=== PATIENT | male | born 1955 | race Caucasian/White ===

== ENCOUNTER → 2018-04-08 15:57 | Outpatient (CLI) | payer MEDICARE, SELFPAY ==
[2018-04-08 17:14] LABS: Absolute Lymphocyte Count 1.16 X10^3/ul (0.83-4.51); Absolute Neutrophil Count 5.3 X10^3/uL (2.0-7.7); Basophil# 0.02 X10^3/uL; Basophil% 0.3 % (0-1); Eosinophil# 0.09 X10^3/uL; Eosinophils% 1.2 % (0-5); Hematocrit 41.9 % (40-54); Hemoglobin 13.8 g/dl (13.0-16.5); Lymphocyte # 1.16 X10^3/ul (4.0); Lymphocyte % 15.3 % (19-41); Mean Corp Hgb Conc 32.9 g/gl (32-36); Mean Corpuscular Hgb 30.5 pg (27.0-32.0); Mean Corpuscular Volume 92.5 fL (80-94); Monocyte# 0.95 X10^3/uL; Monocyte% 12.5 % (0-10); Neutrophil # 5.34 X10^3/uL (2.7-7.7); Neutrophil % 70.3 % (47-70); Platelet Count 243 K/mm3 (150-450); RBC Distribution Width CV 13.7 % (11.6-14.6); RBC Distribution Width SD 45.6 fl (35.1-43.9); Red Blood Count 4.53 M/mm3 (4.6-6.2); White Blood Count 7.6 K/mm3 (4.4-11.0)
[2018-04-08 17:27] LABS: POSITIVE COUNT NO; POSITIVE DIFFERENTIAL NO; POSITIVE MORPHOLOGY NO
[2018-04-08 17:56] LABS: ALB/GLOB Ratio 0.9 RATIO (0.9-2.4); AST(SGOT) 25 U/L (15-37); Alanine Aminotransfer ALT/SGPT 35 U/L (16-61); Albumin, Serum 3.6 g/dL (3.2-5.0); Alkaline Phosphatase 93 U/L (45-117); Anion Gap 9 (5-15); BUN 14 mg/dL (7-18); BUN/Creat Ratio 17.5 RATIO (10-20); Calcium,Total 8.4 mg/dL (8.5-10.1); Chloride 105 mmol/L (98-107); EST Glomerular Filtration Rate 105 mL/min (>60); Est Glom Filt Rate - Afr Amer 127 mL/min (>60); Globulin 3.9 g/dL (2.2-4.2); Glucose 104 mg/dL (74-106); Potassium 3.6 mmol/L (3.5-5.1); Protein, Total 7.5 g/dL (6.4-8.2); Sodium Level 142 mmol/L (136-145); T4 Free Direct 1.09 ng/dL (0.76-1.46); Thyroid Stim Hormone (TSH) 1.53 uIU/mL (0.358-3.74)
== END ==
PROVIDERS: Family Provider Internal Medicine; PCP Internal Medicine; Visit Provider Family Medicine
DX: R53.83 Other fatigue (principal); R19.7 Diarrhea, unspecified
CPT/HCPCS: 36415; 80053; 84439; 84443; 85025

== ENCOUNTER → 2018-10-09 09:28 | Outpatient (CLI) | payer OTHER, SELFPAY ==
[2018-10-11 03:07] LABS: QNTFERON TB Mitogen Value 8.46 IU/mL (.); QNTFERON TB Nil Value 0.03 IU/mL (.); QNTFERON TB1+ Ag Value 0.04 IU/mL (.); QNTFERON TB2+ Ag Value 0.03 IU/mL (.)
[2018-10-13 11:24] LABS: QNTIFERON TB Positive Criteria Negative (Negative)
--- OUTSIDE RECORDS SUMMARY | 2018-11-25 03:03 | XMS RPT_ITS ---
:1955 External Reference #:[id number] Author Organization OHIP Care Team Providers Name Role Phone BRIAN PATEL Attending Unavailable BRIAN PATEL Referring Unavailable GANTAARLEEN Attending Unavailable GANTA, ARLEEN Referring Unavailable GANTAERIRA Referring Unavailable MercedesElham Attending Unavailable Mercedes, Elham Referring Unavailable Ganta, Arleen Primary Care Unavailable Brian Patel Attending Unavailable Brian Patel Referring Unavailable Ganta, Arleen Primary Care Unavailable PROBLEMS PROBLEMS DATE TYPE CONDITION / CODE ATTENDING STATUS SOURCE 06/25/2018 Active Abnormal weight gain NA Active [place] / R63.5(ICD-10) Clinic Main [place] [facility] 06/25/2018 Active Noninfective NA Active [place] gastroenteritis and [facility] Main colitis, unspecified [place] / K52.9(ICD-10) Repository 04/08/2018 Active Diarrhea, unspecified NA Active [place] / R19.7(ICD-10) Clinic Main [place] [facility] 04/08/2018 Active Other fatigue / NA Active [place] R53.83(ICD-10) Clinic Main [place] [facility] 04/08/2018 Active Unknown / BRIAN PATEL Active [place] UNK(Unknown) A Clinic Main [place] [facility] PROCEDURES PROCEDURES No Procedure Records FoundRESULTS RESULTS PROGRESS Observed: 11/19/2018 Status: COMPLETED Source: [place] 9:50 AM [facility] REPOSITORY HNO ID: [id number] Author: Jess Craft Service: (none) Author Type: Glove Cutter Type: Progress Notes Filed: 11/19/2018 9:50 AM Note Text: [facility] CONSULTANT QUICKNOTE Provider Action/FYI: Patient identified by name and . Patient returned call and scheduled appointment. Appointment scheduled for 02/2019. Jess Craft CMA OBSOLETE Observed: 11/17/2018 Status: COMPLETED Source: [place] 12:00 AM [facility] REPOSITORY Refill (FAMPWS) ZIYAD BAER ([id number]) 1955 M Date Time Provider Department 11/17/18 [facility] During your visit today, we recorded the following information about you: Franca Hicks Ma 11/17/2018 10:54 AM Signed [facility] Tl Coleman APRN.RJ 11/17/2018 11:05 AM Signed The following approved medication requests have been transmitted electronically. Signed Prescriptions Disp Refills carvedilol (COREG) 25 mg tablet 180 tablet 3 Sig: Take 1 tablet by mouth twice daily with meals. [place]: No Authorizing Provider: TL COLEMAN (MANUFACTURER) Tl Coleman APRN.CNP Allergies As of Date: 11/17/2018 Noted Allergy Reaction PENICILLINS 05/31/2015 9 - Itching POISON ALL 05/31/2015 9 - Itching Date Reviewed: 06/25/2018 Reviewed by: Bhavya Holbrook LPN - Fully Assessed Reason for Visit: Refill Request [94] Visit Diagnosis:Essential hypertension [I10] Order(s):carvedilol (COREG) 25 mg tabletTake 1 tablet by mouth twice daily with meals.Disp: 180 tabletRfl: 3 Prescriptions as of 11/17/2018 Sig: CARVEDILOL 25 MG TABLET Take 1 tablet by mouth twice * COLESTIPOL 1 GRAM TABLET Take 1 tablet by mouth once d* VALSARTAN 320 MG TABLET Take 1 tablet by mouth once d* AMLODIPINE 10 MG TABLET Take 1 tablet by mouth once d* ESCITALOPRAM 20 MG TABLET Take 1 tablet by mouth once d* AMLODIPINE 10 MG TABLET Take 1 tablet by mouth once d* CITALOPRAM 20 MG TABLET Take 1 tablet by mouth once d* Patient not taking: Reported on 08/05/2018 VITAMINS A,C,D-[id number]-[id number] 7* Take 1 tablet by mouth twice * CHOLECALCIFEROL (VITAMIN D3) * Take 1 capsule by mouth once * APREMILAST 30 MG TABLET Take 1 tablet by mouth twice * LISINOPRIL 40 MG TABLET Take 1 tablet by mouth once d* Patient not taking: Reported on 08/05/2018 SILDENAFIL 100 MG TABLET One tablet one hour prior to * NAPROXEN 500 MG TABLET TAKE 1 TABLET BY MOUTH TWICE * Patient not taking: Reported on 04/08/2018 ASPIRIN 81 MG TABLET,DELAYED * Take 1 tablet by mouth once d* CHOLECALCIFEROL (VITAMIN D3) * Take 1 capsule by mouth once * CLOBETASOL 0.05 % TOPICAL CRE* Apply at sparingly to elbows * Problem List As Of Date 11/17/2018 Noted Resolved Hypertension [I10] INVALID FOR* More... Anxiety and depression [F41.9, F32.9] INVALID FOR* More... Sleep apnea [G47.30] INVALID FOR* More... Morbid obesity (HCC) [E66.01] INVALID FOR* More... Alcohol use disorder, mild, abuse [F10.10] INVALID FOR* More... Arthritis of ankle, right [M19.071] INVALID FOR* Prescriptions ordered this encounter Disp Refills Start End CARVEDILOL 25 MG TABLET 180 * 3 11/17/2018 Route: ORAL Sig: Take 1 tablet by mouth twice daily with meals. Medications Discontinued During This Encounter carvedilol (COREG) 25 mg tablet 180 * 3 11/11/2018 11/17/2018 Route: ORAL Sig: Take 1 tablet by mouth twice daily with meals. Disc: Reason for discontinue is not on file. Encounter Status:Closed by TL COLEMAN CNP on 11/17/18 PROGRESS Observed: 11/14/2018 Status: COMPLETED Source: [place] 9:38 AM [facility] [place] REPOSITORY O ID: [id number] Author: Jess Craft Service: (none) Author Type: Glove Cutter Type: Progress Notes Filed: 11/19/2018 9:50 AM Note Text: [facility]SULTANT QUICKNOTE Provider Action/FYI: Patient identified by name and . 1st attempt - Left detailed message for patient to return call #[phone] Jess Craft CMA PROGRESS Observed: 11/13/2018 Status: COMPLETED Source: [place] 9:10 AM [facility] REPOSITORY HNO ID: [id number] Author: Jess Craft Service: (none) Author Type: Glove Cutter Type: Progress Notes Filed: 11/19/2018 9:50 AM Note Text: PHMA TEAMLET DOCUMENTATION Provider Action/FYI: PSR Action/FYI: R/s follow up appointment Teamlet has identified patient by name and date of . Team: Tl Mercado ? Last Office Visit:09/20/2018 ? Next Office Visit: Visit date not found ? Last BP/Labs: Blood Pressure: Last 3 Encounter BP Readings: Date: BP: 07/14/2018 157/94[BP Star average[ 06/25/2018 142/84 04/08/2018 164/100 Lipids: Cholesterol, Total (mg/dL) Date Value 12/08/2016 141 HDL Cholesterol (mg/dL) Date Value 12/08/2016 45 LDL Cholesterol (mg/dL) Date Value 12/08/2016 71 Triglyceride (mg/dL) Date Value 12/08/2016 125 HGB A1C: No results found for: HBA1C TSH: TSH (uU/mL) Date Value 06/25/2018 1.730 ) Care Gap: HTN Plan: ? Confirm PCP / Status - active ? Type of appointment needed: Follow-up HTN next available with Provider pcp or multimedia instructional designer ? Consultation Appointments: n/a Labs, HM and Immunization: Health Maintenance Due: BP CONTROLLED (<130/80) due on 1975 DTAP,TDAP,TD(1 - Tdap) due on 1976 ONE PNEUMOVAX PRIOR TO AGE 65 due on 1976 COLORECTAL CANCER SCREENING,SEE MODIFIER due on 2007 PROSTATE CANCER SCREENING DISCUSSION due on 2012 INFLUENZA(1) due on 06/28/2018 Jess Craft CMA CNPTOUTREACH Observed: 11/13/2018 Status: COMPLETED Source: [place] 12:00 AM [facility] REPOSITORY Patient Outreach (INTMWS) KEYURZIYAD ([id number]) 1955 M Date Time Provider Department 11/13/18 JESS CRAFT ([facility]) INTMWS During your visit today, we recorded the following information about you: Jess Craft CMA 11/19/2018 9:50 AM Signed PHMA TEAMLET DOCUMENTATION Provider Action/FYI: PSR Action/FYI: R/s follow up appointment Teamlet has identified patient by name and date of . Team: Tl Mercado ? Last Office Visit:09/20/2018 ? Next Office Visit: Visit date not found ? Last BP/Labs: Blood Pressure: Last 3 Encounter BP Readings: Date: BP: 07/14/2018 157/94[BP Star average[ 06/25/2018 142/84 04/08/2018 164/100 Lipids: Cholesterol, Total (mg/dL) Date Value 12/08/2016 141 HDL Cholesterol (mg/dL) Date Value 12/08/2016 45 LDL Cholesterol (mg/dL) Date Value 12/08/2016 71 Triglyceride (mg/dL) Date Value 12/08/2016 125 HGB A1C: No results found for: HBA1C TSH: TSH (uU/mL) Date Value 06/25/2018 1.730 ) Care Gap: HTN Plan: ? Confirm PCP / Status - active ? Type of appointment needed: Follow-up HTN next available with Provider pcp or multimedia instructional designer ? Consultation Appointments: n/a Labs, HM and Immunization: Health Maintenance Due: BP CONTROLLED (<130/80) due on 1975 DTAP,TDAP,TD(1 - Tdap) due on 1976 ONE PNEUMOVAX PRIOR TO AGE 65 due on 1976 COLORECTAL CANCER SCREENING,SEE MODIFIER due on 2007 PROSTATE CANCER SCREENING DISCUSSION due on 2012 INFLUENZA(1) due on 06/28/2018 AFSHIN Chau CMA 11/19/2018 9:50 AM Signed [facility] CONTAM[facility] CONSULTANT WADE Provider Action/FYI: Patient identified by name and . 1st attempt - Left detailed message for patient to return call #[phone] AFSHIN Chau CMA 11/19/2018 9:50 AM Signed [facility] CONSULTANT WADE Provider Action/FYI: Patient identified by name and . Patient returned call and scheduled appointment. Appointment scheduled for 02/2019. Jess Craft CMA Allergies As of Date: 11/13/2018 Noted Allergy Reaction PENICILLINS 05/31/2015 9 - Itching POISON ALL 05/31/2015 9 - Itching Date Reviewed: 06/25/2018 Reviewed by: Bhavya Holbrook LPN - Fully Assessed Reason for Visit: PHMA/Care Gap Outreach [[id number]] Prescriptions as of 11/13/2018 Sig: X CARVEDILOL 25 MG TABLET Take 1 tablet by mouth twice * COLESTIPOL 1 GRAM TABLET Take 1 tablet by mouth once d* VALSARTAN 320 MG TABLET Take 1 tablet by mouth once d* AMLODIPINE 10 MG TABLET Take 1 tablet by mouth once d* ESCITALOPRAM 20 MG TABLET Take 1 tablet by mouth once d* AMLODIPINE 10 MG TABLET Take 1 tablet by mouth once d* CITALOPRAM 20 MG TABLET Take 1 tablet by mouth once d* Patient not taking: Reported on 08/05/2018 VITAMINS A,C,O-YSRH-EGRYJE 7* Take 1 tablet by mouth twice * CHOLECALCIFEROL (VITAMIN D3) * Take 1 capsule by mouth once * APREMILAST 30 MG TABLET Take 1 tablet by mouth twice * LISINOPRIL 40 MG TABLET Take 1 tablet by mouth once d* Patient not taking: Reported on 08/05/2018 SILDENAFIL 100 MG TABLET One tablet one hour prior to * NAPROXEN 500 MG TABLET TAKE 1 TABLET BY MOUTH TWICE * Patient not taking: Reported on 04/08/2018 ASPIRIN 81 MG TABLET,DELAYED * Take 1 tablet by mouth once d* CHOLECALCIFEROL (VITAMIN D3) * Take 1 capsule by mouth once * CLOBETASOL 0.05 % TOPICAL CRE* Apply at sparingly to elbows * Problem List As Of Date 11/13/2018 Noted Resolved Hypertension [I10] INVALID FOR* More... Anxiety and depression [F41.9, F32.9] INVALID FOR* More... Sleep apnea [G47.30] INVALID FOR* More... Morbid obesity (HCC) [E66.01] INVALID FOR* More... Alcohol use disorder, mild, abuse [F10.10] INVALID FOR* More... Arthritis of ankle, right [M19.071] INVALID FOR* Encounter Status:Closed by JESS CRAFT CMA on 11/19/18 OBSOLETE Observed: 11/10/2018 Status: COMPLETED Source: [place] 12:00 AM [facility] REPOSITORY Refill (FAMPWS) ZIYAD BAER ([id number]) 1955 M Date Time Provider Department 11/10/18 [facility] During your visit today, we recorded the following information about you: Franca Hicks Ma 11/10/2018 3:24 PM Signed Patient has been identified by name and date of : Yes Pharmacy phones for refill(s): Pending Prescriptions Disp Refills CARVEDILOL 25 MG TABLET 180 tablet 3 Sig: Take 1 tablet by mouth twice daily with meals. [place]: No Date of last office visit in primary care: 06/25/18 Last 2 Encounter Wt Readings: Date: Wt: 06/25/2018 142.9 kg (315 lb) 04/08/2018 142.9 kg (315 lb) Previous labs/tests for medication: Blood Pressure: BUN (mg/dL) Date Value 06/25/2018 13 Sodium (mmol/L) Date Value 06/25/2018 143 Last 1 Encounter BP Readings: Date: BP: 07/14/2018 157/94[BP Star average[ Please advise. Thank you. Franca Coleman APRN.MANUFACTURER 11/11/2018 10:54 AM Signed The following approved medication requests have been transmitted electronically. Signed Prescriptions Disp Refills carvedilol (COREG) 25 mg tablet 180 tablet 3 Sig: Take 1 tablet by mouth twice daily with meals. [place]: No Authorizing Provider: TL COLEMAN (RJ) Tl Coleman APRN.CNP Allergies As of Date: 11/10/2018 Noted Allergy Reaction PENICILLINS 05/31/2015 9 - Itching POISON ALL 05/31/2015 9 - Itching Date Reviewed: 06/25/2018 Reviewed by: Bhavya Holbrook LPN - Fully Assessed Reason for Visit: Refill Request [94] Visit Diagnosis:Essential hypertension [I10] Order(s):carvedilol (COREG) 25 mg tabletTake 1 tablet by mouth twice daily with meals.Disp: 180 tabletRfl: 3 Prescriptions as of 11/10/2018 Sig: CARVEDILOL 25 MG TABLET Take 1 tablet by mouth twice * COLESTIPOL 1 GRAM TABLET Take 1 tablet by mouth once d* VALSARTAN 320 MG TABLET Take 1 tablet by mouth once d* AMLODIPINE 10 MG TABLET Take 1 tablet by mouth once d* ESCITALOPRAM 20 MG TABLET Take 1 tablet by mouth once d* AMLODIPINE 10 MG TABLET Take 1 tablet by mouth once d* CITALOPRAM 20 MG TABLET Take 1 tablet by mouth once d* Patient not taking: Reported on 08/05/2018 VITAMINS A,C,N-SGUA-OGYQHT 7* Take 1 tablet by mouth twice * CHOLECALCIFEROL (VITAMIN D3) * Take 1 capsule by mouth once * APREMILAST 30 MG TABLET Take 1 tablet by mouth twice * LISINOPRIL 40 MG TABLET Take 1 tablet by mouth once d* Patient not taking: Reported on 08/05/2018 SILDENAFIL 100 MG TABLET One tablet one hour prior to * NAPROXEN 500 MG TABLET TAKE 1 TABLET BY MOUTH TWICE * Patient not taking: Reported on 04/08/2018 ASPIRIN 81 MG TABLET,DELAYED * Take 1 tablet by mouth once d* CHOLECALCIFEROL (VITAMIN D3) * Take 1 capsule by mouth once * CLOBETASOL 0.05 % TOPICAL CRE* Apply at sparingly to elbows * Problem List As Of Date 11/10/2018 Noted Resolved Hypertension [I10] INVALID FOR* More... Anxiety and depression [F41.9, F32.9] INVALID FOR* More... Sleep apnea [G47.30] INVALID FOR* More... Morbid obesity (HCC) [E66.01] INVALID FOR* More... Alcohol use disorder, mild, abuse [F10.10] INVALID FOR* More... Arthritis of ankle, right [M19.071] INVALID FOR* Prescriptions ordered this encounter Disp Refills Start End CARVEDILOL 25 MG TABLET 180 * 3 11/11/2018 Route: ORAL Sig: Take 1 tablet by mouth twice daily with meals. Medications Discontinued During This Encounter carvedilol (COREG) 25 mg tablet 180 * 0 08/06/2018 11/11/2018 Route: ORAL Sig: Take 1 tablet by mouth twice daily with meals. Disc: Reason for discontinue is not on file. Encounter Status:Closed by TL COLEMAN CNP on 11/11/18 PROGRESS Observed: 11/04/2018 Status: COMPLETED Source: [place] 10:01 AM [facility] REPOSITORY HNO ID: [id number] Author: Jess Craft Service: (none) Author Type: Glove Cutter Type: Progress Notes Filed: 11/04/2018 10:01 AM Note Text: I spoke with Bill and he agreed to make an appointment, but needed it to be on a Saturday. Appointment nicole. This Sat. He states he will call back if he can't make it due to his schedule he wasn't sure about. PROGRESS Observed: 10/31/2018 Status: COMPLETED Source: [place] 10:08 AM [facility] REPOSITORY HNO ID: [id number] Author: Jess Craft Service: (none) Author Type: Glove Cutter Type: Progress Notes Filed: 11/04/2018 10:01 AM Note Text: Left message for patient to return call #[phone] PROGRESS Observed: 10/30/2018 Status: COMPLETED Source: [place] 10:06 AM [facility] REPOSITORY HNO ID: [id number] Author: Jess Craft Service: (none) Author Type: Glove Cutter Type: Progress Notes Filed: 11/04/2018 10:01 AM Note Text: PHMA CARE GAP REGISTRY DOCUMENTATION (OUTSIDE TEAMLET) Provider Action/FYI: PSR Action/FYI: R/s follow up appointment Health Maintenance Due: BP CONTROLLED (<130/80) due on 1975 DTAP,TDAP,TD(1 - Tdap) due on 1976 ONE PNEUMOVAX PRIOR TO AGE 65 due on 1976 COLORECTAL CANCER SCREENING,SEE MODIFIER due on 2007 PROSTATE CANCER SCREENING DISCUSSION due on 2012 INFLUENZA(1) due on 06/28/2018 Patient identified by name and date of . Last BP/Labs: Blood Pressure: Last 3 Encounter BP Readings: Date: BP: 07/14/2018 157/94[BP Star average[ 06/25/2018 142/84 04/08/2018 164/100 Lipids: Cholesterol, Total (mg/dL) Date Value 12/08/2016 141 HDL Cholesterol (mg/dL) Date Value 12/08/2016 45 LDL Cholesterol (mg/dL) Date Value 12/08/2016 71 Triglyceride (mg/dL) Date Value 12/08/2016 125 HGB A1C: No results found for: HBA1C TSH: TSH (uU/mL) Date Value 06/25/2018 1.730 ) ? Patient has the following care gap registry disease diagnosis:HTN ? Patient has the following open care gaps: Health Maintenance Due: BP CONTROLLED (<130/80) due on 1975 DTAP,TDAP,TD(1 - Tdap) due on 1976 ONE PNEUMOVAX PRIOR TO AGE 65 due on 1976 COLORECTAL CANCER SCREENING,SEE MODIFIER due on 2007 PROSTATE CANCER SCREENING DISCUSSION due on 2012 INFLUENZA(1) due on 06/28/2018 ? Last office visit: 06/25/2018 ? Future office visit:Follow-up r/s in next available with Provider pcp or multimedia instructional designer AFSHIN Chau Observed: 10/30/2018 Status: COMPLETED Source: [place] 12:00 AM [facility] REPOSITORY Patient Outreach (INTMWS) ZIYAD BAER ([id number]) 1955 M Date Time Provider Department 10/30/18 JESS CRAFT ([facility]) INTMWS During your visit today, we recorded the following information about you: Jess Craft CMA 11/04/2018 10:01 AM Signed [facility] CARE GAP REGISTRY DOCUMENTATION (OUTSIDE TEAMLET) Provider Action/FYI: PSR Action/FYI: R/s follow up appointment Health Maintenance Due: BP CONTROLLED (<130/80) due on 1975 DTAP,TDAP,TD(1 - Tdap) due on 1976 ONE PNEUMOVAX PRIOR TO AGE 65 due on 1976 COLORECTAL CANCER SCREENING,SEE MODIFIER due on 2007 PROSTATE CANCER SCREENING DISCUSSION due on 2012 INFLUENZA(1) due on 06/28/2018 Patient identified by name and date of . Last BP/Labs: Blood Pressure: Last 3 Encounter BP Readings: Date: BP: 07/14/2018 157/94[BP Star average[ 06/25/2018 142/84 04/08/2018 164/100 Lipids: Cholesterol, Total (mg/dL) Date Value 12/08/2016 141 HDL Cholesterol (mg/dL) Date Value 12/08/2016 45 LDL Cholesterol (mg/dL) Date Value 12/08/2016 71 Triglyceride (mg/dL) Date Value 12/08/2016 125 HGB A1C: No results found for: HBA1C TSH: TSH (uU/mL) Date Value 06/25/2018 1.730 ) ? Patient has the following care gap registry disease diagnosis:HTN ? Patient has the following open care gaps: Health Maintenance Due: BP CONTROLLED (<130/80) due on 1975 DTAP,TDAP,TD(1 - Tdap) due on 1976 ONE PNEUMOVAX PRIOR TO AGE 67 due on 1976 COLORECTAL CANCER SCREENING,SEE MODIFIER due on 2007 PROSTATE CANCER SCREENING DISCUSSION due on 2012 INFLUENZA(1) due on 06/28/2018 ? Last office visit: 06/25/2018 ? Future office visit:Follow-up r/s in next available with Provider pcp or multimedia instructional designer AFSHIN Chau CMA 11/04/2018 10:01 AM Signed Left message for patient to return call #[phone] Jess CraftAFSHIN 11/04/2018 10:01 AM Signed I spoke with Bill and he agreed to make an appointment, but needed it to be on a Saturday. Appointment nicole. This Sat. He states he will call back if he can't make it due to his schedule he wasn't sure about. Allergies As of Date: 10/30/2018 Noted Allergy Reaction PENICILLINS 05/31/2015 9 - Itching POISON ALL 05/31/2015 9 - Itching Date Reviewed: 06/25/2018 Reviewed by: Bhavya Holbrook LPN - Fully Assessed Reason for Visit: PHMA/Care Gap Outreach [[id number]] Prescriptions as of 10/30/2018 Sig: COLESTIPOL 1 GRAM TABLET Take 1 tablet by mouth once d* CARVEDILOL 25 MG TABLET Take 1 tablet by mouth twice * VALSARTAN 320 MG TABLET Take 1 tablet by mouth once d* AMLODIPINE 10 MG TABLET Take 1 tablet by mouth once d* ESCITALOPRAM 20 MG TABLET Take 1 tablet by mouth once d* AMLODIPINE 10 MG TABLET Take 1 tablet by mouth once d* CITALOPRAM 20 MG TABLET Take 1 tablet by mouth once d* Patient not taking: Reported on 08/05/2018 VITAMINS A,C,T-EHHN-HFLAHZ 7* Take 1 tablet by mouth twice * CHOLECALCIFEROL (VITAMIN D3) * Take 1 capsule by mouth once * APREMILAST 30 MG TABLET Take 1 tablet by mouth twice * LISINOPRIL 40 MG TABLET Take 1 tablet by mouth once d* Patient not taking: Reported on 08/05/2018 SILDENAFIL 100 MG TABLET One tablet one hour prior to * NAPROXEN 500 MG TABLET TAKE 1 TABLET BY MOUTH TWICE * Patient not taking: Reported on 04/08/2018 ASPIRIN 81 MG TABLET,DELAYED * Take 1 tablet by mouth once d* CHOLECALCIFEROL (VITAMIN D3) * Take 1 capsule by mouth once * CLOBETASOL 0.05 % TOPICAL CRE* Apply at sparingly to elbows * Problem List As Of Date 10/30/2018 Noted Resolved Hypertension [I10] INVALID FOR* More... Anxiety and depression [F41.9, F32.9] INVALID FOR* More... Sleep apnea [G47.30] INVALID FOR* More... Morbid obesity (HCC) [E66.01] INVALID FOR* More... Alcohol use disorder, mild, abuse [F10.10] INVALID FOR* More... Arthritis of ankle, right [M19.071] INVALID FOR* Encounter Status:Closed by JESS CRAFT CMA on 11/04/18 QUANTIFERON TB-GOLD+ Collected: 10/09/2018 Status: F Source: [place] 9:34 AM [facility] REPOSITORY TYPE CODE TESTS RESULT OUT OF RANGE REFERENCE UNITS LAB L3400.8025 . Normal QFT TB Comment GOLD Result Comment: The QuantiFERON-TB Gold Plus result is determined by subtracting the Nil value from either TB antigen (Ag) tube. The mitogen tube serves as a control for the test. LAB L3400.8035 . IU/mL Normal QFT TB1+ AG 0.04 [facility] LAB L3400.8045 . IU/mL Normal QFT TB2+ AG 0.03 [facility] LAB L3400.8055 . IU/mL Normal QFT NIL VALUE 0.03 LAB L3400.8065 . IU/mL Normal QFT MITOGEN 8.46 [facility] LAB L3400.8075 Negative Normal QFT TB POS Negative CRIT Result Comment: The specimen received for QuantiFERON testing was incubated by the ordering institution. Specific procedures outlined in our Directory of Services and in the package insert for the QuantiFERON Gold (In Tube) test must be followed to enable for proper stimulation of cells for the production of interferon gamma. Performed at: [facility] [address] [id number] Wearing Apparel Assembler: Ham Hitchcock PhD, Phone: [phone] Performed By: #### L3400.8000 #### [facility] (refer to report for specific site) refer to report for address and phone number CNPPatrizia Observed: 08/05/2018 Status: COMPLETED Source: [place] 12:00 AM [facility] REPOSITORY Telephone (INTMWS) KEYURZIYAD ([id number]) 1955 M Date Time Provider Department 08/05/18 ARLEEN MENDIETA During your visit today, we recorded the following information about you: Alysa Nicholson LPN 08/05/2018 9:13 AM Signed Patient calling to see if he should be taking carvedilol 25 mg twice a day. Will need a refill if he is to continue. Please advise [phone]. Alysa MENDIETA MD 08/05/2018 4:24 PM Signed Yes twice a day, I sent refill to [facility] pharmacy, does he was [facility]? Patient's request for medication is as follows: Signed Prescriptions Disp Refills carvedilol (COREG) 25 mg tablet 180 tablet 3 Sig: Take 1 tablet by mouth twice daily with meals. [place]: No Authorizing Provider: ARLEEN MENDIETA Prescription(s) as above. Please process accordingly. ARLEEN MENDIETA MD [facility] ARSENIO 08/05/2018 5:02 PM Signed Phoned patient and went over notes from Dr Mendieta with understanding. Asking for 90 day [facility]. Pending rx to mail away pharmacy. Tl Coleman APRN.RJ 08/05/2018 5:08 PM Signed The following approved medication requests have been transmitted electronically. Signed Prescriptions Disp Refills carvedilol (COREG) 25 mg tablet 180 tablet 3 Sig: Take 1 tablet by mouth twice daily with meals. [place]: No Authorizing Provider: TL COLEMAN (RJ) Tl Coleman APRN.RJ Driscoll 08/06/2018 4:51 PM Signed Patient is calling back - He needs the 90 days with refills sent to [facility] in [place]. He is NOT using [facility]. Please send to [facility] in [place] immediately - he stated he is going to [facility] in one hour. Courtney Driscoll 08/06/2018 4:52 PM Signed Addended by: COURTNEY GIL on: 08/06/2018 04:52 PM Modules accepted: Orders Tl Coleman APRN.CNP 08/06/2018 5:39 PM Signed Previous phone encounter from patient requested prescriptions be sent to [facility]. Sent back to [facility]. The following approved medication requests have been transmitted electronically. Signed Prescriptions Disp Refills carvedilol (COREG) 25 mg tablet 180 tablet 0 Sig: Take 1 tablet by mouth twice daily with meals. [place]: No Authorizing Provider: TL COLEMAN (RJ) ADA Nuno APRN.CNP 08/06/2018 5:39 PM Signed Addended by: TL COLEMAN CNP on: 08/06/2018 05:39 PM Modules accepted: Orders Allergies As of Date: 08/05/2018 Noted Allergy Reaction PENICILLINS 05/31/2015 9 - Itching POISON ALL 05/31/2015 9 - Itching Date Reviewed: 06/25/2018 Reviewed by: Bhavya Holbrook LPN - Fully Assessed Reason for Visit: Medication Question [6808] Visit Diagnosis:Essential hypertension [I10] Order(s):carvedilol (COREG) 25 mg tabletTake 1 tablet by mouth twice daily with meals.Disp: 180 tabletRfl: 0 Prescriptions as of 08/05/2018 Sig: CARVEDILOL 25 MG TABLET Take 1 tablet by mouth twice * COLESTIPOL 1 GRAM TABLET Take 1 tablet by mouth once d* VALSARTAN 320 MG TABLET Take 1 tablet by mouth once d* AMLODIPINE 10 MG TABLET Take 1 tablet by mouth once d* ESCITALOPRAM 20 MG TABLET Take 1 tablet by mouth once d* AMLODIPINE 10 MG TABLET Take 1 tablet by mouth once d* CITALOPRAM 20 MG TABLET Take 1 tablet by mouth once d* Patient not taking: Reported on 08/05/2018 VITAMINS A,C,V-PCVQ-SELRFL 7* Take 1 tablet by mouth twice * CHOLECALCIFEROL (VITAMIN D3) * Take 1 capsule by mouth once * APREMILAST 30 MG TABLET Take 1 tablet by mouth twice * LISINOPRIL 40 MG TABLET Take 1 tablet by mouth once d* Patient not taking: Reported on 08/05/2018 SILDENAFIL 100 MG TABLET One tablet one hour prior to * NAPROXEN 500 MG TABLET TAKE 1 TABLET BY MOUTH TWICE * Patient not taking: Reported on 04/08/2018 ASPIRIN 81 MG TABLET,DELAYED * Take 1 tablet by mouth once d* CHOLECALCIFEROL (VITAMIN D3) * Take 1 capsule by mouth once * CLOBETASOL 0.05 % TOPICAL CRE* Apply at sparingly to elbows * Problem List As Of Date 08/05/2018 Noted Resolved Hypertension [I10] INVALID FOR* More... Anxiety and depression [F41.9, F32.9] INVALID FOR* More... Sleep apnea [G47.30] INVALID FOR* More... Morbid obesity (HCC) [E66.01] INVALID FOR* More... Alcohol use disorder, mild, abuse [F10.10] INVALID FOR* More... Arthritis of ankle, right [M19.071] INVALID FOR* Prescriptions ordered this encounter Disp Refills Start End CARVEDILOL 25 MG TABLET 180 * 3 08/05/2018 08/05/2018 Route: ORAL Sig: Take 1 tablet by mouth twice daily with meals. CARVEDILOL 25 MG TABLET 180 * 3 08/05/2018 08/06/2018 Class: [facility] Route: ORAL Sig: Take 1 tablet by mouth twice daily with meals. CARVEDILOL 25 MG TABLET 180 * 0 08/06/2018 Route: ORAL Sig: Take 1 tablet by mouth twice daily with meals. Medications Discontinued During This Encounter carvedilol (COREG) 25 mg tablet 28 t* 0 06/25/2018 08/05/2018 Route: ORAL Sig: Take 1 tablet by mouth twice daily with meals. Disc: Reason for discontinue is not on file. carvedilol (COREG) 25 mg tablet 180 * 3 08/05/2018 08/05/2018 Route: ORAL Sig: Take 1 tablet by mouth twice daily with meals. Disc: Reason for discontinue is not on file. carvedilol (COREG) 25 mg tablet 180 * 3 08/05/2018 08/06/2018 Class: [facility] Route: ORAL Sig: Take 1 tablet by mouth twice daily with meals. Disc: Reason for discontinue is not on file. Encounter Status:Closed by TL COLEMAN CNP on 08/05/18 PROGRESS Observed: 07/14/2018 Status: COMPLETED Source: [place] 3:48 PM [facility] REPOSITORY HNO ID: [id number] Author: Desiree Parks LPN Service: (none) Author Type: (none) Type: Progress Notes Filed: 07/14/2018 4:12 PM Note Text: Manual Readin/80 Pulse: 58 (irregular) BP Star average: 157/94 P: 56 Repeat BP Check: 181/95 P55 #1 153/99 P54 #3 160/90 P57 #4 155/93 P57 #5 158/92 P56 #6 Reason for blood pressure check - Last BP elevated Patient is: Taking medication as prescribed Yes Took medication today Yes If no, date medication last taken N/A Experiencing side effects No BP was elevated at last appt 06/25/18. Coreg had recently been changed prior to that appt. No BP medication changes made at that appt. Taking all medications as prescribed; does state that he missed yesterday morning medication doses. Also made mention about whether he is taking Labetalol but this is not on his current medication list. Denies any chest pain, shortness of breath, dizziness, or headaches. Daily caffeine use. Past personal history of tobacco use; no current exposure. Alert and oriented. Pt has been identified by name and birthdate: Yes Allergies reviewed: Yes Latex allergy: no. Medication - prescribed and OTC reviewed and updated: Yes Do you need any prescription refills prior to your next visit: No Health Maintenance: Reviewed and not up to date and provider notified Patient advised that he would be contacted after review by PCP. Desiree Parks LPN CNNURSE Observed: 07/14/2018 Status: COMPLETED Source: [place] 3:45 PM [facility] REPOSITORY Nurse Visit (FAMPWS) ZIYAD BAER ([id number]) 1955 M Date Time Provider Department 07/14/18 3:45 PM [place] NURSE [facility]AMPWS During your visit today, we recorded the following information about you: Pulse Blood pressure 56/minute 157/94 Deisree Parks LPN 07/14/2018 4:12 PM Signed Manual Readin/80 Pulse: 58 (irregular) BP Star average: 157/94 P: 56 Repeat BP Check: 181/95 P55 #1 153/99 P54 #3 160/90 P57 #4 155/93 P57 #5 158/92 P56 #6 Reason for blood pressure check - Last BP elevated Patient is: Taking medication as prescribed Yes Took medication today Yes If no, date medication last taken N/A Experiencing side effects No BP was elevated at last appt 06/25/18. Coreg had recently been changed prior to that appt. No BP medication changes made at that appt. Taking all medications as prescribed; does state that he missed yesterday morning medication doses. Also made mention about whether he is taking Labetalol but this is not on his current medication list. Denies any chest pain, shortness of breath, dizziness, or headaches. Daily caffeine use. Past personal history of tobacco use; no current exposure. Alert and oriented. Pt has been identified by name and birthdate: Yes Allergies reviewed: Yes Latex allergy: no. Medication - prescribed and OTC reviewed and updated: Yes Do you need any prescription refills prior to your next visit: No Health Maintenance: Reviewed and not up to date and provider notified Patient advised that he would be contacted after review by PCP. Desiree Parks LPN Referring Provider: ARLEEN MENDIETA [[id number]] Allergies As of Date: 07/14/2018 Noted Allergy Reaction PENICILLINS 05/31/2015 9 - Itching POISON ALL 05/31/2015 9 - Itching Date Reviewed: 06/25/2018 Reviewed by: Bhavya Holbrook LPN - Fully Assessed Reason for Visit: Blood Pressure Check [195] Primary Visit Diagnosis:Essential hypertension [I10] Prescriptions as of 07/14/2018 Sig: AMLODIPINE 10 MG TABLET Take 1 tablet by mouth once d* ESCITALOPRAM 20 MG TABLET Take 1 tablet by mouth once d* AMLODIPINE 10 MG TABLET Take 1 tablet by mouth once d* CITALOPRAM 20 MG TABLET Take 1 tablet by mouth once d* VITAMINS A,C,L-ZTQM-FKKDTX 7* Take 1 tablet by mouth twice * CHOLECALCIFEROL (VITAMIN D3) * Take 1 capsule by mouth once * APREMILAST 30 MG TABLET Take 1 tablet by mouth twice * CARVEDILOL 25 MG TABLET Take 1 tablet by mouth twice * COLESTIPOL 1 GRAM TABLET Take 1 tablet by mouth once d* LISINOPRIL 40 MG TABLET Take 1 tablet by mouth once d* SILDENAFIL 100 MG TABLET One tablet one hour prior to * ASPIRIN 81 MG TABLET,DELAYED * Take 1 tablet by mouth once d* CHOLECALCIFEROL (VITAMIN D3) * Take 1 capsule by mouth once * CLOBETASOL 0.05 % TOPICAL CRE* Apply at sparingly to elbows * NAPROXEN 500 MG TABLET TAKE 1 TABLET BY MOUTH TWICE * Patient not taking: Reported on 04/08/2018 Problem List As Of Date 07/14/2018 Noted Resolved Hypertension [I10] INVALID FOR* More... Anxiety and depression [F41.9, F32.9] INVALID FOR* More... Sleep apnea [G47.30] INVALID FOR* More... Morbid obesity (HCC) [E66.01] INVALID FOR* More... Alcohol use disorder, mild, abuse [F10.10] INVALID FOR* More... Arthritis of ankle, right [M19.071] INVALID FOR* Encounter Status:Closed by DESIREE PARKS LPN on 07/14/18 Observed: 06/25/2018 Status: F Source: [place] FECAL LACTOFERRIN 3:00 PM [facility] REPOSITORY Test Result - Negative for lactoferrin, which may indicate the absence of fecal white blood cells Performed By: #### STLWBC #### [facility] [address] [place], [place] [address] CBC AND DIFFERENTIAL Collected: 06/25/2018 Status: F Source: [place] 10:18 AM [facility] REPOSITORY TYPE CODE TESTS RESULT OUT OF REFERENCE UNITS RANGE LAB WBC 3.70-11.00 k/uL WBC 7.80 LAB RBC 4.20-6.00 m/uL RBC 4.63 LAB HGB 13.0-17.0 g/dL Hemoglobin 14.0 LAB HCT 39.0-51.0 % Hematocrit 43.5 LAB MCV 80.0-100.0 fL MCV 94.0 LAB MCH 26.0-34.0 pG MCH 30.2 LAB MCHC 30.5-36.0 g/dL MCHC 32.2 LAB RDWCV 11.5-15.0 % RDW-CV 13.8 LAB PLTCT 150-400 k/uL Platelet Count 238 LAB MPV 9.0-12.7 fL MPV 9.3 LAB ANEUT % Neut% 67.7 LAB AANEUT 1.45-7.50 k/uL Abs Neut 5.26 LAB ALYMP % Lymph% 17.7 LAB AALYMP 1.00-4.00 k/uL Abs Lymph 1.38 LAB AMONO % Maverick% 12.2 LAB AAMONO <0.87 k/uL Abs Maverick High 0.95 LAB AEOS % Eosin% 1.9 LAB AAEOS <0.46 k/uL Abs Eosin 0.15 LAB ABASO % Baso% 0.5 LAB AABASO <0.11 k/uL Abs Baso 0.04 LAB AUNRBC 0 /100 WBC NRBCs 0.0 LAB ABNRBC <0.01 k/uL Absolute nRBC <0.01 LAB DTYP DTYPE Auto Diff Performed By: #### CBCDIF, BMP, TSH #### [facility] [address] [place], [place] [address] BASIC METABOLIC PANL Collected: 06/25/2018 Status: F Source: [place] 10:18 AM [facility] REPOSITORY TYPE CODE TESTS RESULT OUT OF REFERENCE UNITS RANGE LAB GLU 74-99 mg/dL High Glucose 117 Result Comment: The [place] [employer] (ADA) provides guidance for cutoff values for fasting glucose and random glucose. The ADA defines fasting as no caloric intake for at least 8 hours. Fas ting plasma glucose results between 100 to 125 mg/dL indicate increased risk for diabetes (prediabetes). Fasting plasma glucose results greater than or equal to 126 mg/dL meet the criteria for diagnosis of diabetes. In the absence of unequivocal hyperglycemia, results should be confirmed by repeat testing. In a patient with classic symptoms of hyperglycemia or hyperglycemic crisis, random plasma glucose results greater than or equal to 200 mg/dL meet the criteria for diagnosis of diabetes. Reference: Standards of Medical Care in Diabetes 2016, [place] [employer]. Diabetes Care. 2016.39(Suppl 1). LAB BUN 9-24 mg/dL BUN 13 LAB CRET 0.73-1.22 mg/dL Creatinine 0.78 LAB NA 136-144 mmol/L Sodium 143 LAB K 3.7-5.1 mmol/L Potassium Low 3.5 LAB CL 97-105 mmol/L Chloride 102 LAB CO2 22-30 mmol/L CO2 28 LAB AGAP 9-18 mmol/L Anion Gap 13 LAB CA 8.5-10.2 mg/dL Calcium, Total 9.2 LAB GFRAA eGFR- Amer. >60 LAB GFRNAA . eGFR-All Other Races >60 Result Comment: eGFR (Estimated GFR) Units of measure: mL/min/1.73 meters squared eGFR is derived from the reexpressed MDRD Study equation using the following parameters: serum creatinine, age, gender and race. The creatinine assay has been calibrated to be traceable to IDMS. An eGFR <60 mL/min/1.73m2 for >3 months is consistent with chronic kidney disease. Refer to KDOQI guidelines for clinical interpretation. In patients with unstable renal function, e.g. those with acute kidney injury, the eGFR may not accurately reflect actual GFR. Performed By: #### CBCDIF, BMP, TSH #### [facility] [address] [place], [place] [address] TSH Collected: 06/25/2018 Status: F Source: [place] 10:18 AM [facility] REPOSITORY TYPE CODE TESTS RESULT OUT OF RANGE REFERENCE UNITS LAB TSH 0.400-5.500 uU/mL TSH 1.730 Performed By: #### CBCDIF, BMP, TSH #### [facility] [address] [place], [place] [address] PROGRESS Observed: 06/25/2018 Status: COMPLETED Source: [place] 9:05 AM [facility] REPOSITORY HNO ID: [id number] Author: Arleen Mendieta Service: (none) Author Type: Physician Type: Progress Notes Filed: 06/25/2018 12:56 PM Note Text: Reason for Visit No chief complaint on file. Ziyad Baer is a 63 year old male who presents here today for CPE. Health Maintenance ANNUAL PCP TEAM CHRONIC DISEASE VISIT BLOOD PRESSURE CONTROLLED DTAP,TDAP,TD(1 - Tdap) ONE PNEUMOVAX PRIOR TO AGE 67 COLORECTAL CANCER SCREENING,SEE MODIFIER PROSTATE CANCER SCREENING DISCUSSION INFLUENZA(1) HPI Has a lump and pain in the back. Lump was present- for a few years and Pain is present for a couple months. It is a constant pain, any moving makes it worse, it is a dull pain , 4/10. Does not radiate. No fever or chills, no other associated issues. ? Working in [employer] and has a drive everyday. 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 Diet- he has been eating a lot of fast food and bananas, yogurt, ham sandwich and a little potato chips. He drinks a lot of beer, Around 4 drinks. Sleep- sleeps with the machine but he does not feel rested all the days, some days he does Stress- some stress at work and he finds driving to be stressful Exercise- he does not get to do much exercise, walks the dog 3 /4 times a day , he is not exercising much at all. He eats too much portion sizes, Drinks 5/6 nights a week, a beer or a cocktail Or a glass of wine. ? He is living with his GF. ? Asked him to cut down to one drink a day. Some thing tears his stomach up in the morning, takes otezla, labetolol ,lisinopril in the morning. And celexa, he is not sure which medication is causing this. He is taking amlodipine at night time He thinks he may be lactose intolerant, because every morning he drinks coffee and has to run to the rest room. His psoriasis is much better on the otezla. If he quits it then it comes back with a vengence. He also has FELA and the mask makes him swallow air. And that become a problem later on. He used to have diarrhea in the past but on ly after starting the otezla he is much worse. No problem-specific Assessment AND Plan notes found for this encounter. PAST MEDICAL HISTORY Diagnosis Date - Bladder tumor 2000 - Enlargement of abdominal aorta (HCC) - Hypertension - Shoulder joint stiffness left - Sleep apnea PAST SURGICAL HISTORY Procedure Laterality Date - APPENDECTOMY 2004 - CHOLECYSTECTOMY 2004 - RELEASE OF TRANSVERSE CARPAL LIGAMENT Left 2010 FAMILY HISTORY Problem Relation Age of Onset - Arthritis Father - Cerebral Embolism Mother - Heart Father - Hypertension Father - Ischemic Heart Disease Father - Lipids Father - Obesity Sister - Prostate Cancer Father - Stroke Mother Social History Substance Use Topics - Smoking status: Former Smoker Packs/day: 1.00 Types: Cigarettes Start date: 11/05/1985 Quit date: 09/16/2011 - Smokeless tobacco: Never Used - Alcohol use 11.0 oz/week 2 Glasses of Wine (5oz), 2 Cans of Beer (12oz), 2 Mixed Drinks, 2 Shots of liquor per week Past medical history, appointments, medications, allergies reviewed. Pertinent Lab/Diagnostic Studies are reviewed and discussed today Current Outpatient Prescriptions: - aspirin, enteric coated (ADULT LOW DOSE ASPIRIN) 81 mg EC tablet - labetalol (TRANDATE) 100 mg tablet - vit A,C,H-Nerf-Qbsoyj (PRESERVISION AREDS) 7,160-113-100 indj-np-qudf tab - Cholecalciferol, Vitamin D3, 1,000 unit cap - apremilast (OTEZLA) 30 mg tablet - lisinopril (ZESTRIL, PRINIVIL) 40 mg tablet - sildenafil (VIAGRA) 100 mg tablet - amLODIPine (NORVASC) 10 mg tablet - escitalopram oxalate (LEXAPRO) 20 mg tablet - naproxen (NAPROSYN) 500 mg tablet - Cholecalciferol, Vitamin D3, 1,000 unit cap - clobetasol (TEMOVATE) 0.05 % cream Review of Systems CONSTITUTIONAL: No fevers, chills, nightsweats, unintended weight loss HEENT: Denies frequent or severe heaches, nasal congestion/sinus symptoms, problematic allergy problems. EYES: No diplopia or blurry vision. CARDIOVASCULAR: No chest pain, dyspnea, palpitations, orthopnea, PND, ankle edema. PULM: No dyspnea, unexplained cough. GI: No dysphagia/odynophagia, problematic reflux, constipation, diarrhea, changes in stool habits, hematochezia, melena. : No new urinary complaints, including dysuria, gross hematuria or pyuria. NEURO: No new balance problems, peripheral weakness/paresthesias or numbness of concern. MUSC-SKEL: No new joint pain, swelling, or erythema. PSY: No concerns regarding depression, anxiety or panic. INTEGUMENTARY: No new skin changes (rash, new or changing mole, new growth) Physical Exam BP 146/82 (BP Site: Left Arm, BP Position: Sitting, BP Cuff Size: Large Adult) Pulse 66 Resp 20 Ht 180.3 cm (5' 11) Wt (!) 142.9 kg (315 lb) SpO2 97% BMI 43.93 kg/m? General appearance: Well appearing, alert, in no acute distress, well-hydrated, well nourished. Skin: Skin color, texture, turgor normal, no suspicious rashes or lesions Head: Normocephalic, no masses, lesions, tenderness or abnormalities Eyes: Anicteric sclera. Pupils are equally round and reactive to light. Extraocular movements are intact. Ears: External ears normal, canals clear Nose/Sinuses: Nares normal, septum midline, mucosa normal, no drainage or sinus tenderness Oropharynx: Lips, mucosa, and tongue normal, teeth and gums normal, oropharynx normal Neck: Supple, no adenopathy; thyroid symmetric, normal size, no bruits Back: Normal exam Lungs: Lungs clear to auscultation. No wheezing, rhonchi, rales Heart: RRR without murmur, gallop, or rubs. No ectopy Abdomen: Normal abdominal exam, Abdomen soft, non-tender. Bowel sounds normal. No masses, organomegaly Extremities: No deformities, edema, skin discoloration, clubbing or cyanosis. Good capillary refill. Musculoskeletal: No joint swelling, deformity, or tenderness Peripheral pulses: Normal Neuro: Gait normal. Reflexes normal and symmetric. Sensation grossly intact. ASSESSMENT/PLAN: 1. Annual physical exam - ICD9: V70.0, ICD10: Z00.00 (primary diagnosis) - Recommended regular aerobic exercise. - Follow up for annual exam in one year. 2. Essential hypertension - ICD9: 401.9, ICD10: I10 Not well controlled Changed his medication to coreg this weke - Recommended regular aerobic exercise. - Recommend home blood pressure monitoring, to bring results in on next visit - Goal of BP <130/80 - CARVEDILOL 25 MG TABLET 3. Hypocalcemia - ICD9: 275.41, ICD10: E83.51 Recheck bmp 4. Uncomplicated alcohol dependence (HCC) - ICD9: 303.90, ICD10: F10.20 Discussed to have only one drinks at a time. 5. Chronic diarrhea - ICD9: 787.91, ICD10: K52.9 To try the colestipol for diarrhea. - COLESTIPOL 1 GRAM TABLET - BASIC METABOLIC PNL - CBC + DIFF - FECAL LACTOFERRIN/LEUKOCYTES 6. Weight gain - ICD9: 783.1, ICD10: R63.5 - TSH BLD ARLEEN MENDIETA MD CNOV Observed: 06/25/2018 Status: COMPLETED Source: [place] 8:40 AM [facility] REPOSITORY Office Visit (INTMWS) ZIYAD BAER ([id number]) 1955 M Date Time Provider Department 06/25/18 8:40 AM ARLEEN MENDIETA INTMWS During your visit today, we recorded the following information about you: Pulse Respiration Blood pressure Weight 66/minute 20/minute 142/84 142.9 kg Height 1.803 m ARLEEN MENDIETA MD 06/25/2018 12:56 PM Signed Reason for Visit No chief complaint on file. Ziyad Baer is a 63 year old male who presents here today for CPE. Health Maintenance ANNUAL PCP TEAM CHRONIC DISEASE VISIT BLOOD PRESSURE CONTROLLED DTAP,TDAP,TD(1 - Tdap) ONE PNEUMOVAX PRIOR TO AGE 67 COLORECTAL CANCER SCREENING,SEE MODIFIER PROSTATE CANCER SCREENING DISCUSSION INFLUENZA(1) HPI Has a lump and pain in the back. Lump was present- for a few years and Pain is present for a couple months. It is a constant pain, any moving makes it worse, it is a dull pain , 4/10. Does not radiate. No fever or chills, no other associated issues. ? Working in [employer] and has a drive everyday. 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 Diet- he has been eating a lot of fast food and bananas, yogurt, ham sandwich and a little potato chips. He drinks a lot of beer, Around 4 drinks. Sleep- sleeps with the machine but he does not feel rested all the days, some days he does Stress- some stress at work and he finds driving to be stressful Exercise- he does not get to do much exercise, walks the dog 3 /4 times a day , he is not exercising much at all. He eats too much portion sizes, Drinks 5/6 nights a week, a beer or a cocktail Or a glass of wine. ? He is living with his GF. ? Asked him to cut down to one drink a day. Some thing tears his stomach up in the morning, takes otezla, labetolol ,lisinopril in the morning. And celexa, he is not sure which medication is causing this. He is taking amlodipine at night time He thinks he may be lactose intolerant, because every morning he drinks coffee and has to run to the rest room. His psoriasis is much better on the otezla. If he quits it then it comes back with a vengence. He also has FELA and the mask makes him swallow air. And that become a problem later on. He used to have diarrhea in the past but on ly after starting the otezla he is much worse. No problem-specific Assessment AND Plan notes found for this encounter. PAST MEDICAL HISTORY Diagnosis Date - Bladder tumor 2000 - Enlargement of abdominal aorta (HCC) - Hypertension - Shoulder joint stiffness left - Sleep apnea PAST SURGICAL HISTORY Procedure Laterality Date - APPENDECTOMY 2004 - CHOLECYSTECTOMY 2004 - RELEASE OF TRANSVERSE CARPAL LIGAMENT Left 2010 FAMILY HISTORY Problem Relation Age of Onset - Arthritis Father - Cerebral Embolism Mother - Heart Father - Hypertension Father - Ischemic Heart Disease Father - Lipids Father - Obesity Sister - Prostate Cancer Father - Stroke Mother Social History Substance Use Topics - Smoking status: Former Smoker Packs/day: 1.00 Types: Cigarettes Start date: 11/05/1985 Quit date: 09/16/2011 - Smokeless tobacco: Never Used - Alcohol use 11.0 oz/week 2 Glasses of Wine (5oz), 2 Cans of Beer (12oz), 2 Mixed Drinks, 2 Shots of liquor per week Past medical history, appointments, medications, allergies reviewed. Pertinent Lab/Diagnostic Studies are reviewed and discussed today Current Outpatient Prescriptions: - aspirin, enteric coated (ADULT LOW DOSE ASPIRIN) 81 mg EC tablet - labetalol (TRANDATE) 100 mg tablet - vit A,C,X-Cogu-Dberas (PRESERVISION AREDS) 7,160-113-100 qaqp-pm-yjsa tab - Cholecalciferol, Vitamin D3, 1,000 unit cap - apremilast (OTEZLA) 30 mg tablet - lisinopril (ZESTRIL, PRINIVIL) 40 mg tablet - sildenafil (VIAGRA) 100 mg tablet - amLODIPine (NORVASC) 10 mg tablet - escitalopram oxalate (LEXAPRO) 20 mg tablet - naproxen (NAPROSYN) 500 mg tablet - Cholecalciferol, Vitamin D3, 1,000 unit cap - clobetasol (TEMOVATE) 0.05 % cream Review of Systems CONSTITUTIONAL: No fevers, chills, nightsweats, unintended weight loss HEENT: Denies frequent or severe heaches, nasal congestion/sinus symptoms, problematic allergy problems. EYES: No diplopia or blurry vision. CARDIOVASCULAR: No chest pain, dyspnea, palpitations, orthopnea, PND, ankle edema. PULM: No dyspnea, unexplained cough. GI: No dysphagia/odynophagia, problematic reflux, constipation, diarrhea, changes in stool habits, hematochezia, melena. : No new urinary complaints, including dysuria, gross hematuria or pyuria. NEURO: No new balance problems, peripheral weakness/paresthesias or numbness of concern. MUSC-SKEL: No new joint pain, swelling, or erythema. PSY: No concerns regarding depression, anxiety or panic. INTEGUMENTARY: No new skin changes (rash, new or changing mole, new growth) Physical Exam BP 146/82 (BP Site: Left Arm, BP Position: Sitting, BP Cuff Size: Large Adult) Pulse 66 Resp 20 Ht 180.3 cm (5' 11) Wt (!) 142.9 kg (315 lb) SpO2 97% BMI 43.93 kg/m? General appearance: Well appearing, alert, in no acute distress, well-hydrated, well nourished. Skin: Skin color, texture, turgor normal, no suspicious rashes or lesions Head: Normocephalic, no masses, lesions, tenderness or abnormalities Eyes: Anicteric sclera. Pupils are equally round and reactive to light. Extraocular movements are intact. Ears: External ears normal, canals clear Nose/Sinuses: Nares normal, septum midline, mucosa normal, no drainage or sinus tenderness Oropharynx: Lips, mucosa, and tongue normal, teeth and gums normal, oropharynx normal Neck: Supple, no adenopathy; thyroid symmetric, normal size, no bruits Back: Normal exam Lungs: Lungs clear to auscultation. No wheezing, rhonchi, rales Heart: RRR without murmur, gallop, or rubs. No ectopy Abdomen: Normal abdominal exam, Abdomen soft, non-tender. Bowel sounds normal. No masses, organomegaly Extremities: No deformities, edema, skin discoloration, clubbing or cyanosis. Good capillary refill. Musculoskeletal: No joint swelling, deformity, or tenderness Peripheral pulses: Normal Neuro: Gait normal. Reflexes normal and symmetric. Sensation grossly intact. ASSESSMENT/PLAN: 1. Annual physical exam - ICD9: V70.0, ICD10: Z00.00 (primary diagnosis) - Recommended regular aerobic exercise. - Follow up for annual exam in one year. 2. Essential hypertension - ICD9: 401.9, ICD10: I10 Not well controlled Changed his medication to coreg this weke - Recommended regular aerobic exercise. - Recommend home blood pressure monitoring, to bring results in on next visit - Goal of BP <130/80 - CARVEDILOL 25 MG TABLET 3. Hypocalcemia - ICD9: 275.41, ICD10: E83.51 Recheck bmp 4. Uncomplicated alcohol dependence (HCC) - ICD9: 303.90, ICD10: F10.20 Discussed to have only one drinks at a time. 5. Chronic diarrhea - ICD9: 787.91, ICD10: K52.9 To try the colestipol for diarrhea. - COLESTIPOL 1 GRAM TABLET - BASIC METABOLIC PNL - CBC + DIFF - FECAL LACTOFERRIN/LEUKOCYTES 6. Weight gain - ICD9: 783.1, ICD10: R63.5 - TSH BLD MD ARLEEN LEBRON MD 06/26/2018 1:23 PM Signed Addended by: ARLEEN MENDIETA MD on: 06/26/2018 01:23 PM Modules accepted: Orders Referring Provider: SELF [200] Allergies As of Date: 06/25/2018 Noted Allergy Reaction PENICILLINS 05/31/2015 9 - Itching POISON ALL 05/31/2015 9 - Itching Date Reviewed: 06/25/2018 Reviewed by: Bhavya Holbrook LPN - Fully Assessed Primary Visit Diagnosis:Annual physical exam [Z00.00] Other Visit Diagnoses:Essential hypertension [I10] Hypocalcemia [E83.51] Uncomplicated alcohol dependence (HCC) [F10.20] Chronic diarrhea [K52.9] Weight gain [R63.5] Psoriasis [L40.9] Order(s):TSH BLD [SQTSH] Order #: [id number] FUTURE BASIC METABOLIC PNL [SQBMP] Order #: [id number] FUTURE CBC + DIFF [SQCBCDIF] Order #: [id number] FUTURE FECAL LACTOFERRIN/LEUKOCYTES [SQFECWBC] Order #: [id number]. #:[id number] carvedilol (COREG) 25 mg tabletTake 1 tablet by mouth twice daily with meals.Disp: 28 tabletRfl: 0 colestipol (COLESTID) 1 gram tabletTake 1 tablet by mouth once daily. At bed time.Disp: 14 tabletRfl: 0 lisinopril (ZESTRIL, PRINIVIL) 40 mg tabletTake 1 tablet by mouth once daily.Disp: 14 tabletRfl: 0 amLODIPine (NORVASC) 10 mg tabletTake 1 tablet by mouth once daily.Disp: 90 tabletRfl: 3 escitalopram oxalate (LEXAPRO) 20 mg tabletTake 1 tablet by mouth once daily.Disp: 90 tabletRfl: 3 amLODIPine (NORVASC) 10 mg tabletTake 1 tablet by mouth once daily.Disp: 7 tabletRfl: 1 citalopram (CELEXA) 20 mg tabletTake 1 tablet by mouth once daily.Disp: 7 tabletRfl: 1 Prescriptions as of 06/25/2018 Sig: ASPIRIN 81 MG TABLET,DELAYED * Take 1 tablet by mouth once d* AMLODIPINE 10 MG TABLET Take 1 tablet by mouth once d* ESCITALOPRAM 20 MG TABLET Take 1 tablet by mouth once d* AMLODIPINE 10 MG TABLET Take 1 tablet by mouth once d* CITALOPRAM 20 MG TABLET Take 1 tablet by mouth once d* VITAMINS A,C,U-OECH-FRAQBJ 7* Take 1 tablet by mouth twice * CHOLECALCIFEROL (VITAMIN D3) * Take 1 capsule by mouth once * APREMILAST 30 MG TABLET Take 1 tablet by mouth twice * CARVEDILOL 25 MG TABLET Take 1 tablet by mouth twice * COLESTIPOL 1 GRAM TABLET Take 1 tablet by mouth once d* LISINOPRIL 40 MG TABLET Take 1 tablet by mouth once d* SILDENAFIL 100 MG TABLET One tablet one hour prior to * NAPROXEN 500 MG TABLET TAKE 1 TABLET BY MOUTH TWICE * Patient not taking: Reported on 04/08/2018 CHOLECALCIFEROL (VITAMIN D3) * Take 1 capsule by mouth once * CLOBETASOL 0.05 % TOPICAL CRE* Apply at sparingly to elbows * Problem List As Of Date 06/25/2018 Noted Resolved Hypertension [I10] INVALID FOR* More... Anxiety and depression [F41.9, F32.9] INVALID FOR* More... Sleep apnea [G47.30] INVALID FOR* More... Morbid obesity (HCC) [E66.01] INVALID FOR* More... Alcohol use disorder, mild, abuse [F10.10] INVALID FOR* More... Arthritis of ankle, right [M19.071] INVALID FOR* Prescriptions ordered this encounter Disp Refills Start End LABETALOL 100 MG TABLET 180 * 3 06/25/2018 06/25/2018 Route: ORAL Sig: Take 1 tablet by mouth twice daily. Cosign accepted by ARLEEN MENDIETA MD[[id number]] on 06/25/2018 12:56 PM CARVEDILOL 25 MG TABLET 60 t* 2 06/25/2018 06/25/2018 Route: ORAL Sig: Take 1 tablet by mouth twice daily with meals. COLESTIPOL 1 GRAM TABLET 30 t* 2 06/25/2018 06/25/2018 Route: ORAL Sig: Take 1 tablet by mouth once daily. At bed time. LISINOPRIL 40 MG TABLET 90 t* 1 06/25/2018 06/25/2018 Route: ORAL Sig: Take 1 tablet by mouth once daily. AMLODIPINE 10 MG TABLET 30 t* 11 06/25/2018 06/26/2018 Class: [facility] Route: ORAL Sig: Take 1 tablet by mouth once daily. ESCITALOPRAM 20 MG TABLET 30 t* 8 06/25/2018 06/26/2018 Class: [facility] Route: ORAL Sig: Take 1 tablet by mouth once daily. CARVEDILOL 25 MG TABLET 28 t* 0 06/25/2018 Route: ORAL Sig: Take 1 tablet by mouth twice daily with meals. COLESTIPOL 1 GRAM TABLET 14 t* 0 06/25/2018 Route: ORAL Sig: Take 1 tablet by mouth once daily. At bed time. LISINOPRIL 40 MG TABLET 14 t* 0 06/25/2018 Route: ORAL Sig: Take 1 tablet by mouth once daily. AMLODIPINE 10 MG TABLET 90 t* 3 06/26/2018 Route: ORAL Sig: Take 1 tablet by mouth once daily. ESCITALOPRAM 20 MG TABLET 90 t* 3 06/26/2018 Route: ORAL Sig: Take 1 tablet by mouth once daily. AMLODIPINE 10 MG TABLET 7 ta* 1 06/26/2018 Route: ORAL Sig: Take 1 tablet by mouth once daily. CITALOPRAM 20 MG TABLET 7 ta* 1 06/26/2018 Route: ORAL Sig: Take 1 tablet by mouth once daily. Medications Discontinued During This Encounter labetalol (TRANDATE) 100 mg tablet 60 t* 0 03/14/2018 06/25/2018 Sig: TAKE 1 TABLET BY MOUTH TWICE DAILY. Disc: Reason for discontinue is not on file. labetalol (TRANDATE) 100 mg tablet 180 * 3 06/25/2018 06/25/2018 Route: ORAL Sig: Take 1 tablet by mouth twice daily. Disc: Reason for discontinue is not on file. Cosign accepted by ARLEEN MENDIETA MD[[id number]] on 06/25/2018 12:56 PM lisinopril (ZESTRIL, PRINIVIL) 40 mg* 60 t* 3 04/08/2018 06/25/2018 Route: ORAL Sig: Take 1 tablet by mouth twice daily. Disc: Reason for discontinue is not on file. amLODIPine (NORVASC) 10 mg tablet 30 t* 11 10/10/2017 06/25/2018 Sig: TAKE 1 TABLET BY MOUTH ONCE DAILY. Disc: Reason for discontinue is not on file. escitalopram oxalate (LEXAPRO) 20 mg* 30 t* 8 10/10/2017 06/25/2018 Sig: TAKE 1 TABLET BY MOUTH ONCE DAILY. Disc: Reason for discontinue is not on file. carvedilol (COREG) 25 mg tablet 60 t* 2 06/25/2018 06/25/2018 Route: ORAL Sig: Take 1 tablet by mouth twice daily with meals. Disc: Reason for discontinue is not on file. colestipol (COLESTID) 1 gram tablet 30 t* 2 06/25/2018 06/25/2018 Route: ORAL Sig: Take 1 tablet by mouth once daily. At bed time. Disc: Reason for discontinue is not on file. lisinopril (ZESTRIL, PRINIVIL) 40 mg* 90 t* 1 06/25/2018 06/25/2018 Route: ORAL Sig: Take 1 tablet by mouth once daily. Disc: Reason for discontinue is not on file. amLODIPine (NORVASC) 10 mg tablet 30 t* 11 06/25/2018 06/26/2018 Class: [facility] Route: ORAL Sig: Take 1 tablet by mouth once daily. Disc: Reason for discontinue is not on file. escitalopram oxalate (LEXAPRO) 20 mg* 30 t* 8 06/25/2018 06/26/2018 Class: [facility] Route: ORAL Sig: Take 1 tablet by mouth once daily. Disc: Reason for discontinue is not on file. Encounter Status:Closed by ARLEEN MENDIETA MD on 06/25/18 CBC W/DIFF, AUTOMATED Collected: 04/08/2018 Status: F Source: [place] 4:13 PM [facility] REPOSITORY TYPE CODE TESTS RESULT OUT OF RANGE REFERENCE UNITS LAB L100.1000 4.4-11.0 K/mm3 Normal WBC 7.6 LAB L100.1200 4.6-6.2 M/mm3 Low RBC 4.53 LAB L100.1300 13.0-16.5 g/dl Normal HGB 13.8 LAB L100.1400 40-54 % Normal HCT 41.9 LAB L100.1500 80-94 fL Normal MCV 92.5 LAB L100.1600 27.0-32.0 pg Normal MCH 30.5 LAB L100.1700 32-36 g/gl Normal MCHC 32.9 LAB L100.1810 11.6-14.6 % Normal RDW CV 13.7 LAB L100.1820 35.1-43.9 fl High RDW SD 45.6 LAB L100.1900 150-450 K/mm3 Normal PLT 243 LAB L100.2000 6.2-12.0 fl Normal MPV 9.0 LAB L100.2100 47-70 % High NEUT% 70.3 LAB L100.2200 19-41 % Low LY% 15.3 LAB L100.2300 0-10 % High MONO% 12.5 LAB L100.2400 0-5 % Normal EO% 1.2 LAB L100.2500 0-1 % Normal BASO% 0.3 LAB L100.2550 0.0-0.9 % Normal IM GRAN % 0.400 Result Comment: IG% - Immature Granulocytes (promyelocytes, myelocytes and metamyelocytes) > 1% indicates that a LEFT SHIFT is Present. LAB L100.2620 2.0-7.7 X10 3/uL Normal Absolute Neut 5.3 LAB L100.2720 0.83-4.51 X10 3/ul Normal Absolute Lymph 1.16 Performed By: #### L100.0100 #### [facility] [place], [address] COMPREHENSIVE METABOLIC Collected: 04/08/2018 Status: F Source: [place] [facility] 4:13 PM [facility] REPOSITORY TYPE CODE TESTS RESULT OUT OF RANGE REFERENCE UNITS LAB L501.0100 74-106 mg/dL Normal GLU 104 Result Comment: Fasting Glucose result from 100 to 125 mg/dL suggests IMPAIRED HOMEOSTASIS per A.D.A. criteria. Please note revised GLUCOSE reference range effective 2017. LAB L501.1000 7-18 mg/dL Normal BUN 14 LAB L501.1100 0.70-1.30 mg/dL Normal CREAT,SERUM 0.80 Result Comment: The validity of the calculated GFR AND GFRAA in patients over 70 years has not been determined. Clinical correlation is essential. LAB L501.1110 >60 mL/min Normal EST GFR 105 Result Comment: Non- GFR Calc LAB L501.1115 >60 mL/min Normal EST GFR - AA 127 Result Comment: GFR Calc LAB L501.1300 10-20 RATIO Normal BUN/CRE 17.5 LAB L501.1500 6.4-8.2 g/dL T Normal PROT 7.5 LAB L501.1800 3.2-5.0 g/dL Normal ALB 3.6 LAB L501.1950 2.2-4.2 g/dL Normal GLOB 3.9 LAB L501.2000 0.9-2.4 RATIO Normal A/G 0.9 LAB L501.2200 8.5-10.1 mg/dL Low CA 8.4 LAB L501.4100 15-37 U/L Normal AST 25 LAB L501.4305 45-117 U/L Normal ALK P 93 LAB L501.4405 16-61 U/L Normal ALT 35 LAB L501.4600 0.20-1.00 mg/dL T Normal BILI 0.90 LAB L501.5300 136-145 mmol/L NA Normal 142 LAB L501.5600 3.5-5.1 mmol/L K Normal 3.6 LAB L501.5900 98-107 mmol/L CL Normal 105 LAB L501.6100 21.0-32.0 mmol/L Normal CO2 28.0 LAB L501.6200 5-15 Normal GAP 9 Performed By: #### L500.4050, L501.9520, L506.0400 #### [facility] [address] [place], [address] THYROID STIM HORMONE Collected: 04/08/2018 Status: F Source: [place] (TSH) 4:13 PM [facility] REPOSITORY TYPE CODE TESTS RESULT OUT OF RANGE REFERENCE UNITS LAB L501.9520 0.358-3.74 uIU/mL Normal TSH 1.53 Performed By: #### L500.4050, L501.9520, L506.0400 #### [facility] [address] [place], [address] T4 FREE DIRECT Collected: 04/08/2018 Status: F Source: [place] 4:13 PM [facility] REPOSITORY TYPE CODE TESTS RESULT OUT OF RANGE REFERENCE UNITS LAB L506.0400 0.76-1.46 ng/dL Normal T4 FREE 1.09 DIRECT Performed By: #### L500.4050, L501.9520, L506.0400 #### [facility] [address] [place], [address] PROGRESS Observed: 04/08/2018 Status: COMPLETED Source: [place] 3:10 PM [facility] REPOSITORY HNO ID: [id number] Author: Brian Patel Service: (none) Author Type: Physician Type: Progress Notes Filed: 04/09/2018 9:51 PM Note Text: Chief Complaint Patient presents with: Diarrhea: x 2 months Fatigue HPI Ziyad Baer is a 63 year old male who presents here today for Above Complaints.. Patient with Hx as reviewed below. Has been having watery diarrhea for the last two months. No new medications. No recent antibiotics. Has not seen any black stools. No gross blood but has blood when he wipes. Has lower abdominal cramping when he needs to have a BM and when he goes the cramping subsides. Has been fatigued. Eating stimulates the need to have a BM and is diarrhea. Has felt feverish and chilled at times but no documented fever. No nausea or vomiting. No RUQ pain and has no gal bladder (removed 2004). Last colonoscopy was 5 yrs ago and told had diverticulosis. Has used some imodium but not resolving. Past medical history, appointments, medications, allergies reviewed. Previous Medical History PAST MEDICAL HISTORY Diagnosis Date - Bladder tumor 2000 - Enlargement of abdominal aorta (HCC) - Hypertension - Shoulder joint stiffness left - Sleep apnea Previous Surgical History PAST SURGICAL HISTORY Procedure Laterality Date - APPENDECTOMY 2004 - CHOLECYSTECTOMY 2004 - RELEASE OF TRANSVERSE CARPAL LIGAMENT Left 2010 Family History FAMILY HISTORY Problem Relation Age of Onset - Arthritis Father - Cerebral Embolism Mother - Heart Father - Hypertension Father - Ischemic Heart Disease Father - Lipids Father - Obesity Sister - Prostate Cancer Father - Stroke Mother Patient Allergies ALLERGIES Allergen Reactions - Penicillins Itching - Poison All Itching Current Medications Current Outpatient Prescriptions on File Prior to Visit: labetalol (TRANDATE) 100 mg tablet TAKE 1 TABLET BY MOUTH TWICE DAILY. amLODIPine (NORVASC) 10 mg tablet TAKE 1 TABLET BY MOUTH ONCE DAILY. escitalopram oxalate (LEXAPRO) 20 mg tablet TAKE 1 TABLET BY MOUTH ONCE DAILY. lisinopril (ZESTRIL, PRINIVIL) 40 mg tablet TAKE 1 TABLET BY MOUTH EVERY DAY aspirin, enteric coated (ADULT LOW DOSE ASPIRIN) 81 mg EC tablet Take 1 tablet by mouth once daily. Cholecalciferol, Vitamin D3, 1,000 unit cap Take 1 capsule by mouth once daily. clobetasol (TEMOVATE) 0.05 % cream Apply at sparingly to elbows and knees up to twice daily for no more than 2 weeks sildenafil (VIAGRA) 100 mg tablet One tablet one hour prior to intercourse naproxen (NAPROSYN) 500 mg tablet TAKE 1 TABLET BY MOUTH TWICE DAILY NEEDED (FOR PAIN/INFLAMMATION). TAKE WITH FOOD. (Patient not taking: Reported on 04/08/2018) No current facility-administered medications on file prior to visit. Social History Social History Marital status: Spouse name: Years of education: Number of children: Social History Main Topics Smoking status: Former Smoker Packs/day: 1.00 Years: 0.00 Types: Cigarettes Start date: 11/05/1985 Quit date: 09/16/2011 Alcohol use: Yes 11.0 oz/week Glasses of Wine (5oz): 2, Cans of Beer (12oz): 2, Mixed Drinks: 2, Shots of liquor: 2 per week Drug use: No Sexual activity: Yes Partners with: Female Other Topics Concern Service No Blood Transfusions No Caffeine Concern No Occupational Exposure Yes Hobby Hazards No Sleep Concern Yes Stress Concern Yes Weight Concern Yes Special Diet No Back Care No Exercise No Bike Helmet No Seat Belt Yes Self-Exams No Review of Symptoms REVIEW OF SYSTEMS See HPI EXAM: BP 164/100 Pulse 68 Temp 37.1 ?C (98.7 ?F) Wt (!) 142.9 kg (315 lb) BMI 43.93 kg/m? General Appearance: Well appearing, alert, in no acute distress, well-hydrated, well nourished.. Neck: Supple, no adenopathy; thyroid symmetric, normal size, no bruits. Lungs: Lungs clear to auscultation. No wheezing, rhonchi, rales. Heart: RRR without murmur, gallop, or rubs. No ectopy. Abdomen: Normal abdominal exam, Abdomen soft. Has mild left sided tenderness without guarding. Bowel sounds normal. No masses, organomegaly. Health Maintenance List DTAP,TDAP,TD(1 - Tdap) due on 1976 ONE PNEUMOVAX PRIOR TO AGE 65 due on 1976 COLORECTAL CANCER SCREENING,SEE MODIFIER due on 2007 PROSTATE CANCER SCREENING DISCUSSION due on 2012 INFLUENZA(Season Ended) due on 06/28/2018 DIABETES SCREEN due on 12/08/2019 LIPID SCREEN due on 12/08/2021 HEPATITIS C SCREENING Completed Data reviewed A/P ASSESSMENT/PLAN: 1. Diarrhea, unspecified type - ICD9: 787.91, ICD10: R19.7 (primary diagnosis) Check - TSH BLD - T4 FREE/FREE THYROX - STOOL CULTURE/EIA - C. DIFFICILE PCR - CRYPTOSPORIDIUM AND GIARDIA ANTIGENS BY EIA - FECAL FAT / QUAL - FECAL LACTOFERRIN/LEUKOCYTES - CMP - if w/u normal will proceed with GI consult - Patient to use prn Imodium or Kayopectate. 2. Fatigue, unspecified type - ICD9: 780.79, ICD10: R53.83 Check - TSH BLD - CBC + DIFF - T4 FREE/FREE THYROX - CMP 3. Essential hypertension - ICD9: 401.9, ICD10: I10 - poor control - Increase lisinopril (Zestril/Prinivil) 40 mg to twice a day. In discussion with patient he stopped taking his lobetalol twice a day several months ago due to when he would take in with the lexapro he got diarrhea. - Recommended regular aerobic exercise. - Recommend home blood pressure monitoring, to bring results in on next visit - Goal of BP <130/80 Signed Prescriptions Disp Refills lisinopril (ZESTRIL, PRINIVIL) 40 mg tablet 60 tablet 3 Sig: Take 1 tablet by mouth twice daily. [place]: No f/u in [address] Mendieta or her MAAME. Time with patient face to face was 25 min Brian Patel MD CNOV Observed: 04/08/2018 Status: COMPLETED Source: [place] 2:40 PM [facility] REPOSITORY Office Visit (FAMPWS) KEYURZIYAD Maritza ([id number]) 1955 M Date Time Provider Department 04/08/18 2:40 PM [facility] During your visit today, we recorded the following information about you: Temperature Pulse Blood pressure Weight 98.7 degrees 68/minute 164/100 142.9 kg Brian Patel MD 04/09/2018 9:51 PM Signed Chief Complaint Patient presents with: Diarrhea: x 2 months Fatigue HPI Ziyad Baer is a 63 year old male who presents here today for Above Complaints.. Patient with Hx as reviewed below. Has been having watery diarrhea for the last two months. No new medications. No recent antibiotics. Has not seen any black stools. No gross blood but has blood when he wipes. Has lower abdominal cramping when he needs to have a BM and when he goes the cramping subsides. Has been fatigued. Eating stimulates the need to have a BM and is diarrhea. Has felt feverish and chilled at times but no documented fever. No nausea or vomiting. No RUQ pain and has no gal bladder (removed 2004). Last colonoscopy was 5 yrs ago and told had diverticulosis. Has used some imodium but not resolving. Past medical history, appointments, medications, allergies reviewed. Previous Medical History PAST MEDICAL HISTORY Diagnosis Date - Bladder tumor 2000 - Enlargement of abdominal aorta (HCC) - Hypertension - Shoulder joint stiffness left - Sleep apnea Previous Surgical History PAST SURGICAL HISTORY Procedure Laterality Date - APPENDECTOMY 2004 - CHOLECYSTECTOMY 2004 - RELEASE OF TRANSVERSE CARPAL LIGAMENT Left 2011 Family History FAMILY HISTORY Problem Relation Age of Onset - Arthritis Father - Cerebral Embolism Mother - Heart Father - Hypertension Father - Ischemic Heart Disease Father - Lipids Father - Obesity Sister - Prostate Cancer Father - Stroke Mother Patient Allergies ALLERGIES Allergen Reactions - Penicillins Itching - Poison All Itching Current Medications Current Outpatient Prescriptions on File Prior to Visit: labetalol (TRANDATE) 100 mg tablet TAKE 1 TABLET BY MOUTH TWICE DAILY. amLODIPine (NORVASC) 10 mg tablet TAKE 1 TABLET BY MOUTH ONCE DAILY. escitalopram oxalate (LEXAPRO) 20 mg tablet TAKE 1 TABLET BY MOUTH ONCE DAILY. lisinopril (ZESTRIL, PRINIVIL) 40 mg tablet TAKE 1 TABLET BY MOUTH EVERY DAY aspirin, enteric coated (ADULT LOW DOSE ASPIRIN) 81 mg EC tablet Take 1 tablet by mouth once daily. Cholecalciferol, Vitamin D3, 1,000 unit cap Take 1 capsule by mouth once daily. clobetasol (TEMOVATE) 0.05 % cream Apply at sparingly to elbows and knees up to twice daily for no more than 2 weeks sildenafil (VIAGRA) 100 mg tablet One tablet one hour prior to intercourse naproxen (NAPROSYN) 500 mg tablet TAKE 1 TABLET BY MOUTH TWICE DAILY NEEDED (FOR PAIN/INFLAMMATION). TAKE WITH FOOD. (Patient not taking: Reported on 04/08/2018) No current facility-administered medications on file prior to visit. Social History Social History Marital status: Spouse name: Years of education: Number of children: Social History Main Topics Smoking status: Former Smoker Packs/day: 1.00 Years: 0.00 Types: Cigarettes Start date: 11/05/1985 Quit date: 09/16/2011 Alcohol use: Yes 11.0 oz/week Glasses of Wine (5oz): 2, Cans of Beer (12oz): 2, Mixed Drinks: 2, Shots of liquor: 2 per week Drug use: No Sexual activity: Yes Partners with: Female Other Topics Concern Service No Blood Transfusions No Caffeine Concern No Occupational Exposure Yes Hobby Hazards No Sleep Concern Yes Stress Concern Yes Weight Concern Yes Special Diet No Back Care No Exercise No Bike Helmet No Seat Belt Yes Self-Exams No Review of Symptoms REVIEW OF SYSTEMS See HPI EXAM: BP 164/100 Pulse 68 Temp 37.1 ?C (98.7 ?F) Wt (!) 142.9 kg (315 lb) BMI 43.93 kg/m? General Appearance: Well appearing, alert, in no acute distress, well-hydrated, well nourished.. Neck: Supple, no adenopathy; thyroid symmetric, normal size, no bruits. Lungs: Lungs clear to auscultation. No wheezing, rhonchi, rales. Heart: RRR without murmur, gallop, or rubs. No ectopy. Abdomen: Normal abdominal exam, Abdomen soft. Has mild left sided tenderness without guarding. Bowel sounds normal. No masses, organomegaly. Health Maintenance List DTAP,TDAP,TD(1 - Tdap) due on 1976 ONE PNEUMOVAX PRIOR TO AGE 67 due on 1976 COLORECTAL CANCER SCREENING,SEE MODIFIER due on 2007 PROSTATE CANCER SCREENING DISCUSSION due on 2012 INFLUENZA(Season Ended) due on 06/28/2018 DIABETES SCREEN due on 12/08/2019 LIPID SCREEN due on 12/08/2021 HEPATITIS C SCREENING Completed Data reviewed A/P ASSESSMENT/PLAN: 1. Diarrhea, unspecified type - ICD9: 787.91, ICD10: R19.7 (primary diagnosis) Check - TSH BLD - T4 FREE/FREE THYROX - STOOL CULTURE/EIA - C. DIFFICILE PCR - CRYPTOSPORIDIUM AND GIARDIA ANTIGENS BY EIA - FECAL FAT / QUAL - FECAL LACTOFERRIN/LEUKOCYTES - CMP - if w/u normal will proceed with GI consult - Patient to use prn Imodium or Kayopectate. 2. Fatigue, unspecified type - ICD9: 780.79, ICD10: R53.83 Check - TSH BLD - CBC + DIFF - T4 FREE/FREE THYROX - CMP 3. Essential hypertension - ICD9: 401.9, ICD10: I10 - poor control - Increase lisinopril (Zestril/Prinivil) 40 mg to twice a day. In discussion with patient he stopped taking his lobetalol twice a day several months ago due to when he would take in with the lexapro he got diarrhea. - Recommended regular aerobic exercise. - Recommend home blood pressure monitoring, to bring results in on next visit - Goal of BP <130/80 Signed Prescriptions Disp Refills lisinopril (ZESTRIL, PRINIVIL) 40 mg tablet 60 tablet 3 Sig: Take 1 tablet by mouth twice daily. [place]: No f/u in [address] Mendieta or her MAAME. Time with patient face to face was 25 min MD Jessa Collins LPN 04/08/2018 4:26 PM Signed [facility] BP results: Large Cuff on left arm. Ave: 164/90 P 63 152/87 P 64 163/90 P62 165/90 P63 169/89 P 62 170/95 P 64 Jessa Bosch LPN Referring Provider: SELF [200] Allergies As of Date: 04/08/2018 Noted Allergy Reaction PENICILLINS 05/31/2015 9 - Itching POISON ALL 05/31/2015 9 - Itching Date Reviewed: 04/08/2018 Reviewed by: Brian Patel - Fully Assessed Reason for Visit: Diarrhea [35] Cmt: x 2 months Fatigue [46] Primary Visit Diagnosis:Diarrhea, unspecified type [R19.7] Other Visit Diagnoses:Fatigue, unspecified type [R53.83] Essential hypertension [I10] Order(s):TSH BLD [SQTSH] Order #: [id number] FUTURE CBC + DIFF [SQCBCDIF] Order #: [id number] FUTURE T4 FREE/FREE THYROX [SQFT4] Order #: [id number] FUTURE STOOL CULTURE/EIA [SQSTOCUL] Order #: [id number] FUTURE C. DIFFICILE PCR [SQCDPCR] Order #: [id number] CRYPTOSPORIDIUM AND GIARDIA ANTIGENS BY EIA [SQOVAPSC] Order #: [id number] FECAL FAT / QUAL [SQFFAT] Order #: [id number] FECAL LACTOFERRIN/LEUKOCYTES [SQFECWBC] Order #: [id number] COMP METABOLIC PANEL [SQCMP] Order #: [id number] FUTURE lisinopril (ZESTRIL, PRINIVIL) 40 mg tabletTake 1 tablet by mouth twice daily.Disp: 60 tabletRfl: 3 Prescriptions as of 04/08/2018 Sig: LISINOPRIL 40 MG TABLET Take 1 tablet by mouth twice * LABETALOL 100 MG TABLET TAKE 1 TABLET BY MOUTH TWICE * AMLODIPINE 10 MG TABLET TAKE 1 TABLET BY MOUTH ONCE D* ESCITALOPRAM 20 MG TABLET TAKE 1 TABLET BY MOUTH ONCE D* ASPIRIN 81 MG TABLET,DELAYED * Take 1 tablet by mouth once d* CHOLECALCIFEROL (VITAMIN D3) * Take 1 capsule by mouth once * CLOBETASOL 0.05 % TOPICAL CRE* Apply at sparingly to elbows * SILDENAFIL 100 MG TABLET One tablet one hour prior to * NAPROXEN 500 MG TABLET TAKE 1 TABLET BY MOUTH TWICE * Patient not taking: Reported on 04/08/2018 Problem List As Of Date 04/08/2018 Noted Resolved Hypertension [I10] INVALID FOR* More... Anxiety and depression [F41.9, F32.9] INVALID FOR* More... Sleep apnea [G47.30] INVALID FOR* More... Morbid obesity (HCC) [E66.01] INVALID FOR* More... Alcohol use disorder, mild, abuse [F10.10] INVALID FOR* More... Arthritis of ankle, right [M19.071] INVALID FOR* Visit Notes: >> Jessa Bosch LPN keagan Apr 08, 2018 4:23 PM Status: Signed Star BP results: Large Cuff on left arm. Ave: 164/90 P 63 152/87 P 64 163/90 P62 165/90 P63 169/89 P 62 170/95 P 64 Jessa Shabbona DIRECTOR PROSPECT Prescriptions ordered this encounter Disp Refills Start End LISINOPRIL 40 MG TABLET 60 t* 3 04/08/2018 Route: ORAL Sig: Take 1 tablet by mouth twice daily. Medications Discontinued During This Encounter lisinopril (ZESTRIL, PRINIVIL) 40 mg* 30 t* 11 10/10/2017 04/08/2018 Sig: TAKE 1 TABLET BY MOUTH EVERY DAY Disc: Reason for discontinue is not on file. Disposition: Return in about 4 weeks (around 05/06/2018), or with PCP or her MAAME, for HTN follow up. Follow-up and Disposition History Recorded Letter Text April 08, 2018 TO WHOM IT MAY CONCERN: This is to certify that Mr. Ziyad Baer has been under my care for diarrhea and fatigue and was unable to work from 04/07/2018 through 04/08/2018. Mr. Baer may return to work on 04/09/2018 without restrictions. Sincerely yours, Brian Patel MD Encounter Status:Closed by BRIAN PATEL on 04/09/18 PROGRESS Observed: 11/29/2017 Status: COMPLETED Source: [place] 11:04 AM [facility] [place] REPOSITORY HNO ID: [id number] Author: Jess Craft Cma Service: (none) Author Type: (none) Type: Progress Notes Filed: 11/29/2017 11:05 AM Note Text: I spoke with Ziyad and he agreed to come in, in a few weeks for a BP check. Appointment schedule 12/18/17. The patient has been identified by name and date of : YES I have scheduled the patient for an appointment on 01/15/2018. The patient will report to the lab prior to the visit. PHMA Documentation 10/18/2017 11/29/2017 Opts out of [facility] [employer] No No Appointments Scheduled Scheduled PCP Appt Scheduled PCP Appt BP > 139/89 Other Appt Other Appt Appt Date 01/15/2018 12/18/2017 Jess Craft Dry Charge Process Attendant PROGRESS Observed: 11/28/2017 Status: COMPLETED Source: [place] 2:33 PM [facility] REPOSITORY HNO ID: [id number] Author: Jess Craft Cma Service: (none) Author Type: (none) Type: Progress Notes Filed: 11/29/2017 11:05 AM Note Text: Left detailed message for patient to return call #[phone] Informed pt. We'd like to see him for a nurse visit and due for some HM (psa and colonoscopy). PROGRESS Observed: 11/28/2017 Status: COMPLETED Source: [place] 2:30 PM [facility] [place] REPOSITORY HNO ID: [id number] Author: Jess Craft Cma Service: (none) Author Type: (none) Type: Progress Notes Filed: 11/29/2017 11:05 AM Note Text: PHMA TEAMLET DOCUMENTATION Provider Action/FYI: PSR Action/FYI: Teamlet has identified patient by name and date of . Team: Myself, Bhavya Alvarado Eva ? Last Office Visit:Visit date not found ? Next Office Visit: 01/15/2018 ? Last BP/Labs: Blood Pressure: Last 3 Encounter BP Readings: Date: BP: 04/19/2017 160/90 12/10/2016 130/84 09/18/2016 130/85 Lipids: Cholesterol, Total (mg/dL) Date Value 12/08/2016 141 HDL Cholesterol (mg/dL) Date Value 12/08/2016 45 LDL Cholesterol (mg/dL) Date Value 12/08/2016 71 Triglyceride (mg/dL) Date Value 12/08/2016 125 HGB A1C: No results found for: HBA1C TSH: No results found for: TSH) Care Gap: HTN - Last BP NOT under 140/90 Plan: ? Type of appointment needed: Nurse BP vist next available - also, remind of upcoming appointment with labs prior ? PSA and Colonoscopy due. Labs, HM and Immunization: Health Maintenance Due: TETANUS due on 1968 ONE PNEUMOVAX PRIOR TO AGE 67 due on 1976 PROSTATE CANCER SCREENING DISCUSSION due on 2007 COLORECTAL CANCER SCREENING,SEE MODIFIER due on 2007 INFLUENZA(1) due on 06/28/2017 Jess Craft Cma CNPTOUTREACH Observed: 11/28/2017 Status: COMPLETED Source: [place] 12:00 AM [facility] REPOSITORY Patient Outreach (INTMWS) ZIYAD BAER ([id number]) 1955 M Date Time Provider Department 11/28/17 JESS CRAFT) INTMWS During your visit today, we recorded the following information about you: Jess Craft Cma 11/29/2017 11:05 AM Signed [facility] TEAMLET DOCUMENTATION Provider Action/FYI: PSR Action/FYI: Teamlet has identified patient by name and date of . Team: Myself, Bhavya Alvarado Eva ? Last Office Visit:Visit date not found ? Next Office Visit: 01/15/2018 ? Last BP/Labs: Blood Pressure: Last 3 Encounter BP Readings: Date: BP: 04/19/2017 160/90 12/10/2016 130/84 09/18/2016 130/85 Lipids: Cholesterol, Total (mg/dL) Date Value 12/08/2016 141 HDL Cholesterol (mg/dL) Date Value 12/08/2016 45 LDL Cholesterol (mg/dL) Date Value 12/08/2016 71 Triglyceride (mg/dL) Date Value 12/08/2016 125 HGB A1C: No results found for: HBA1C TSH: No results found for: TSH) Care Gap: HTN - Last BP NOT under 140/90 Plan: ? Type of appointment needed: Nurse BP vist next available - also, remind of upcoming appointment with labs prior ? PSA and Colonoscopy due. Labs, HM and Immunization: Health Maintenance Due: TETANUS due on 1968 ONE PNEUMOVAX PRIOR TO AGE 67 due on 1976 PROSTATE CANCER SCREENING DISCUSSION due on 2007 COLORECTAL CANCER SCREENING,SEE MODIFIER due on 2007 INFLUENZA(1) due on 06/28/2017 Jessjonathon Craft [facility] Jess Craft [facility] 11/29/2017 11:05 AM Signed Left detailed message for patient to return call #[phone] Informed pt. We'd like to see him for a nurse visit and due for some HM (psa and colonoscopy). Jess Craft [facility] 11/29/2017 11:05 AM Signed I spoke with Ziyad and he agreed to come in, in a few weeks for a BP check. Appointment schedule 12/18/17. The patient has been identified by name and date of : YES I have scheduled the patient for an appointment on 01/15/2018. The patient will report to the lab prior to the visit. PHIA Documentation 10/18/2017 11/29/2017 Opts out of Population Health No No Appointments Scheduled Scheduled PCP Appt Scheduled PCP Appt BP ANDgt; 139/89 Other Appt Other Appt Appt Date 01/15/2018 12/18/2017 Jess Craft Cma Allergies As of Date: 11/28/2017 Noted Allergy Reaction PENICILLINS 05/31/2015 9 - Itching POISON ALL 05/31/2015 9 - Itching Date Reviewed: 04/19/2017 Reviewed by: Dolores Grove Ma - Fully Assessed Reason for Visit: PHMA/Care Gap Outreach [[id number]] Prescriptions as of 11/28/2017 Sig: SILDENAFIL 100 MG TABLET One tablet one hour prior to * AMLODIPINE 10 MG TABLET TAKE 1 TABLET BY MOUTH ONCE D* ESCITALOPRAM 20 MG TABLET TAKE 1 TABLET BY MOUTH ONCE D* LISINOPRIL 40 MG TABLET TAKE 1 TABLET BY MOUTH EVERY * NAPROXEN 500 MG TABLET TAKE 1 TABLET BY MOUTH TWICE * ASPIRIN 81 MG TABLET,DELAYED * Take 1 tablet by mouth once d* LABETALOL 100 MG TABLET Take 1 tablet by mouth twice * CHOLECALCIFEROL (VITAMIN D3) * Take 1 capsule by mouth once * CLOBETASOL 0.05 % TOPICAL CRE* Apply at sparingly to elbows * Problem List As Of Date 11/28/2017 Noted Resolved Hypertension [I10] INVALID FOR* More... Anxiety and depression [F41.8] INVALID FOR* More... Sleep apnea [G47.30] INVALID FOR* More... Morbid obesity (HCC) [E66.01] INVALID FOR* More... Alcohol use disorder, mild, abuse [F10.10] INVALID FOR* More... Arthritis of ankle, right [M19.071] INVALID FOR* Encounter Status:Closed by JESS CRAFT CMA on 11/29/17 OBSOLETE Observed: 11/20/2017 Status: COMPLETED Source: [place] 12:00 AM [facility] REPOSITORY Refill (FAMPWS) ZIYAD BAER ([id number]) 1955 M Date Time Provider Department 11/20/17 ARLEEN MENDIETAWS During your visit today, we recorded the following information about you: Krissy Wilhelm Psr 11/20/2017 3:07 PM Signed Patient has been identified by name and date of : Yes Pending Prescriptions Disp Refills SILDENAFIL 100 MG TABLET 6 tablet 5 Sig: One tablet one hour prior to intercourse [place]: No Patient also requesting triamterene-hydrochlorothiazide (DYAZIDE) 37.5-25 mg per capsule RX INSTRUCTIONS: Patient aware RX will be sent to pharmacy. No need to notify patient. Krissy Wilhelm Psr Rachel Mcbride [facility] 11/20/2017 3:48 PM Signed Patient has been identified by name and date of : Yes Pending Prescriptions Disp Refills SILDENAFIL 100 MG TABLET 6 tablet 5 Sig: One tablet one hour prior to intercourse [place]: No RX INSTRUCTIONS: Patient aware RX will be sent to pharmacy. No need to notify patient. Last office visit:12/10/16 Next office visit:01/15/18 Rachel Mcbride [facility] Bhavya Holbrook LPN 11/22/2017 9:26 AM Signed The following approved medication requests have been transmitted electronically. 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] Order(s):sildenafil (VIAGRA) 100 mg tabletOne tablet one hour prior to intercourseDisp: 6 tabletRfl: 5 Prescriptions as of 11/20/2017 Sig: SILDENAFIL 100 MG TABLET One tablet one hour prior to * AMLODIPINE 10 MG TABLET TAKE 1 TABLET BY MOUTH ONCE D* ESCITALOPRAM 20 MG TABLET TAKE 1 TABLET BY MOUTH ONCE D* LISINOPRIL 40 MG TABLET TAKE 1 TABLET BY MOUTH EVERY * NAPROXEN 500 MG TABLET TAKE 1 TABLET BY MOUTH TWICE * ASPIRIN 81 MG TABLET,DELAYED * Take 1 tablet by mouth once d* LABETALOL 100 MG TABLET Take 1 tablet by mouth twice * CHOLECALCIFEROL (VITAMIN D3) * Take 1 capsule by mouth once * CLOBETASOL 0.05 % TOPICAL CRE* Apply at sparingly to elbows * Problem List As Of Date 11/20/2017 Noted Resolved Hypertension [I10] INVALID FOR* More... Anxiety and depression [F41.8] INVALID FOR* More... Sleep apnea [G47.30] INVALID FOR* More... Morbid obesity (HCC) [E66.01] INVALID FOR* More... Alcohol use disorder, mild, abuse [F10.10] INVALID FOR* More... Arthritis of ankle, right [M19.071] INVALID FOR* Prescriptions ordered this encounter Disp Refills Start End SILDENAFIL 100 MG TABLET 6 ta* 5 11/21/2017 Sig: One tablet one hour prior to intercourse Medications Discontinued During This Encounter sildenafil (VIAGRA) 100 mg tablet 6 ta* 5 10/18/2016 11/21/2017 Sig: One tablet one hour prior to intercourse Disc: Reason for discontinue is not on file. Encounter Status:Closed by BHAVYA HOLBROOK LPN on 11/22/17 ALLERGIES ALLERGIES DATE TYPE / CODE NAME / CODE REACTION SEVERITY SOURCE 05/31/2015 Drug PENICILLINS ITCHING [facility] Class/50517 [place] 1003(SNOMED Repository CT) 05/31/2015 Environ/420 POISON ALL ITCHING [facility] [id number](SNOM [facility] [place] [facility]) Repository ENCOUNTERS ENCOUNTERS ADMIT/DISCHARGE ACCOUNT ADMITTING ENCOUNTER LOCATION SOURCE NUMBER CLASS 10/09/[id number] [facility] ing:MTLAB Repository 07/14/2018/07/15/20 [id number] Ambulatory [address] Repository 06/25/2018/06/25/20 [id number] Ambulatory [address] Repository 06/25/2018/06/26/[id number] Repository 04/08/[id number] [facility] ing:LAB Repository 04/08/2018 [id number] Ambulatory [facility] Repository 04/08/2018/04/10/[id number] Repository PAYERS PAYERS ENCOUNTER GUARANTOR PAYER SUBSCRIBER SOURCE 10/09/2018 ZIYAD Maritza BAER Primary ZIYAD Farley Jr[address] Insurance:MEDICAL Jr.: [place], [place] MUTUAL [facility] [id number] Hospital [address]Rmf: (419) Number: Repository [phone] () [id number] Date:[id number] [address]AL: 10/09/2018 Secondary NOT GIVENUNK Martine Insurance:SELF PAY [facility] Number: Effective Repository Date:2018-10-09 04/08/2018 ZIYAD BAER Primary ZIYAD Farley Jr[address] Insurance:[facility] [id number] Hospital [id number]: (419) Number: Repository [phone] () [id number] Date:[id number] CLAIMS [address] [address]YF: 04/08/2018 Secondary NOT GIVENUNK Martine Insurance:SELF PAY [facility] Number: Effective Repository Date:2018-04-08
== END ==
PROVIDERS: Family Provider Internal Medicine; PCP Internal Medicine; Referring Provider Dermatology Pediatric Dermatology; Visit Provider Dermatology Pediatric Dermatology
DX: L40.0 Psoriasis vulgaris (principal); Z79.899 Other long term (current) drug therapy; L60.1 Onycholysis; B36.8 Other specified superficial mycoses; I87.2 Venous insufficiency (chronic) (peripheral); L40.59 Other psoriatic arthropathy
CPT/HCPCS: 36415; 86480

== ENCOUNTER 2019-10-19 11:02 | Day surgery (SDC) | payer OTHER, SELFPAY ==
--- NOTE | 2019-10-19 07:21 | PCM.HP.BLA ---
History and Physical Date of Admission: 10/19/19 HISTORY AND PHYSICAL ? Luan Salas [place] 1955 ? REFERRING PHYSICIAN: ??Arleen Hwang MD ? CHIEF COMPLAINT: ??Consult ? HPI: The patient is a 64 year old male referred for endoscopy. ?Luan notes no colon complaints currently. Patient denies any?recent?change in bowel habits, weight changes, blood in stools, black tarry stools or abdominal pain.??He notes loose stools, but states this has been for years. ?Denies?family history of colon issues.The patient notes no upper GI complaints. ? Luan?has?undergone prior endoscopy?in 2013, states this was done through [facility]-records not currently available for review. ?He noted discomfort and recall from that procedure, states he does not think he had any polyps but does not think the entire colon was visualized on that exam. ? Patient's oast medical history is significant for hypertension, obesity, sleep apnea. ?He denies any problems with sedation in the past. ? ? PAST MEDICAL HISTORY PAST MEDICAL HISTORY Diagnosis Date ? Bladder tumor 2000 ? Enlargement of abdominal aorta (HCC) ? ? Hypertension ? ? 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 Shoulder joint stiffness ? ? left ? Sleep apnea ? ? DME [facility] for CPAP? ? ? PAST SURGICAL HISTORY PAST SURGICAL HISTORY Procedure Laterality Date ? APPENDECTOMY ? 2004 ? CHOLECYSTECTOMY ? 2005 ? HERNIA REPAIR HX Bilateral 1963,1976 ? RELEASE OF TRANSVERSE CARPAL LIGAMENT Left 2010 ? ? CURRENT MEDICATIONS Current Outpatient Medications Medication Sig ? MEDICATION, NON-DATABASE eyelea eye injection every 12-16 weeks for wet macular degeneration ? escitalopram oxalate (LEXAPRO) 20 mg tablet Take 1 tablet by mouth once daily. ? colestipol (COLESTID) 1 gram tablet Take 1 tablet by mouth once daily. At bed time. ? carvedilol (COREG) 25 mg tablet Take 1 tablet by mouth twice daily with meals. ? amLODIPine (NORVASC) 10 mg tablet Take 1 tablet by mouth once daily. ? valsartan (DIOVAN) 320 mg tablet Take 1 tablet by mouth once daily. ? sildenafil (VIAGRA) 100 mg tablet One tablet one hour prior to intercourse ? vit A,C,V-Gusv-Hoitcx (PRESERVISION AREDS) 7,160-113-100 xkkv-pl-lvci tab Take 1 tablet by mouth twice daily with meals. ? aspirin, enteric coated (ADULT LOW DOSE ASPIRIN) 81 mg EC tablet Take 1 tablet by mouth once daily. ? Cholecalciferol, Vitamin D3, 1,000 unit cap Take 1 capsule by mouth once daily. ? clobetasol (TEMOVATE) 0.05 % cream Apply at sparingly to elbows and knees up to twice daily for no more than 2 weeks ? perflutren lipid microspheres (DEFINITY) 1.1 mg/mL injection (to be provided with echo procedure) Inject 1.3 mL intravenously as directed. ? Cholecalciferol, Vitamin D3, 1,000 unit cap Take 1 capsule by mouth once daily. ? apremilast (OTEZLA) 30 mg tablet Take 1 tablet by mouth twice daily. ? naproxen (NAPROSYN) 500 mg tablet TAKE 1 TABLET BY MOUTH TWICE DAILY NEEDED (FOR PAIN/INFLAMMATION). TAKE WITH FOOD. (Patient not taking: Reported on 09/09/2019) ? No current facility-administered medications for this visit.? ? ALLERGIES:?Penicillins; Poison Kitty ? PERSONAL HISTORY:? SOCIAL HISTORY Social History ? Tobacco Use ? Smoking status: Former Smoker ? ? Packs/day: 1.00 ? ? Types: Cigarettes ? ? Start date: 11/05/1985 ? ? Last attempt to quit: 09/16/2011 ? ? Years since quittin.9 ? Smokeless tobacco: Never Used Substance Use Topics ? Alcohol use: Yes ? ? Alcohol/week: 18.3 standard drinks ? ? Types: 2 Glasses of Wine (5oz), 2 Cans of Beer (12oz), 2 Mixed Drinks, 2 Shots of liquor per week ? ? Frequency: 4 or more times a week ? ? Drinks per session: 3 or 4 ? Drug use: No ? FAMILY HISTORY:? FAMILY HISTORY FAMILY HISTORY Problem Relation Age of Onset ? Cerebral Embolism Mother ? ? Stroke Mother ? ? Arthritis Father ? ? Heart Father ? ? Hypertension Father ? ? Ischemic Heart Disease Father ? ? Lipids Father ? ? Prostate Cancer Father ? ? Obesity Sister ? ? REVIEW OF SYMPTOMS: ??The review of systems data was entered by the nurse and reviewed by me ? Nursing Notes: Radha Holloway RN ?09/09/2019 10:13 AM ?Signed REVIEW OF SYSTEMS: ?General:???The patient denies fatigue, denies weight loss, denies weight gain, denies feeling hot, and denies feelings of cold. ?Eyes: ?The patient denies glaucoma, notes eye injury/surgery, does not wear glasses or contacts. ?Ear/Nose/Throat: ?The patient denies allergies, denies hayfever, denies ear infections, and denies bloody noses. ?Cardiovascular: ?The patient denies chest pain, denies heart disease, notes high blood pressure,denies cardiac stent, denies prior heart attack, denies irregular heart beat, denies high cholesterol, ?denies poor circulation, denies heart failure, other cardiac issues, denies claudication, denies cold feet, denies peripheral arterial stent. ?Respiratory: ?The patient denies tuberculosis, denies pneumonia, denies frequent cough, denies pulmonary embolism, denies shortness of breath, and denies coughing up blood. ?Gastrointestinal: ?The patient denies difficulty swallowing, denies acid reflux, denies ulcers, denies vomiting, denies jaundice/hepatitis, denies gallbladder problems, denies black or tarry stools, denies hemorrhoids, denies bleeding from rectum, denies diverticulitis, denies constipation, notes diarrhea, denies loss of stool control, and notes hernias. ?Kidney/Bladder: ?The patient denies kidney stones, denies urine infections, and denies bloody urine. ?Skin: ?The patient notes a history of skin cancer, denies bleeding/changing moles, and notes a history of skin rash. ?Neurologic: ?The patient denies a history of epilepsy/convulsions, denies headaches, denies head/spinal injuries, and denies stroke/TIA. ?Psychiatric: ?The patient denies psychiatric medications, denies depression, and denies voices, denies substance abuse. ?Endocrine: ?The patient denies thyroid disorders, denies diabetes, and denies hormonal problems. ?Hematologic: ?The patient denies a history of bruising, denies bleeding, and denies anemia, denies blood clots. ?Infections: ?The patient denies a history of measles and mumps, notes rheumatic fever, and denies sexually transmitted diseases. ?Musculoskeletal: ?The patient denies back pain/injury, denies back problems, denies sciatica, denies knee/foot trouble, denies arthritis, or denies gout. ? ? When was patient's last Mammogram screening? N/A ? ?Last Colonoscopy: ?2013 ? Radha Holloway RN? I have confirmed and edited as necessary, the PFSH and ROS obtained by others. ? ? PHYSICAL EXAMINATION: ? General: ?The patient is 64 year old male, well nourished, well hydrated in no acute distress. ?The patient is oriented to time, place, and person. ? VITALS:?Blood pressure 130/80, pulse 72, temperature 36.4 ?C (97.5 ?F), temperature source Temporal Artery, height 180.3 cm (5' 11), weight (!) 150.1 kg (331 lb), SpO2 95 %.?Body mass index is 46.17 kg/m?.? ? HEENT: ?Normal cephalic, ataumatic, pupils are equally round, sclera are anicteric, mucous membranes are moist, oropharynx is clear. ?Neck has no masses, asymmetry or lymphadenopathy. ? ? Respiratory: ?Clear to auscultation and percussion. ?Normal respiratory excursion and pattern. ? Cardiac: ?Examination is regular rate and rhythm. ?Normal S1/S2 ? Abdominal exam: ?Soft, nontender, ?with no palpable masses. ?No hepatosplenomegaly. ?No palpable hernias. ? Extremities: ?no clubbing, cyanosis or edema. ?No adenopathy. ? LABORATORY VALUES: As Noted ? RADIOLOGIC STUDIES: ?As Noted ? ? Assessment ? IMPRESSION:?encounter for screening colonoscopy, history of prior ?incomplete colonoscopy 5 years ago with recall ? PLAN: ?I have reviewed my findings with the surgeon. ?Will plan for lower?endoscopy. ??We discussed the risks and benefits of the planned endoscopy. ?I have informed the patient that complications can occur including failure to complete the endoscopy and perforation. ?The patient had the opportunity to ask questions concerning the planned endoscopy. ?My staff has also explained the procedure to the patient in understandable terms and has given the patient printed material concerning the procedure. ?The patient freely consents to surgery. ? Records release form signed by patient and faxed to request his operative report from his prior colonoscopy ? Patient notes he was just started on Taltz by Dr. Long for psoriasis, but is unsure of the dosage-I have instructed him to contact our office once he is home and looks at the prescription so his med list can be updated accurately ? Patient verbalized understanding of all above and agreed with the plan. ? ? I plan to use?Golytely?bowel preparation ? The patient has recall from their previous endoscopy performed under conscious sedation, therfore we will plan for procedure to be performed under Monitored Anesthetic Care. ? ? Diagnoses:?(Z12.11) Encounter for screening for malignant neoplasm of colon ?(primary encounter diagnosis) ? ? Nel Steiner PA-C
[2019-10-19 11:18] VITALS: BP 157/84; PULSE 62; RESP 16; TEMP 36.3; O2SAT 100; BMI 44.9
[2019-10-19] MEDS: Lactated Ringers 1,000 ML 100 ML IV (11:30)
--- NOTE | 2019-10-19 12:23 | OP.COLON_ITS ---
Patient Name: Luan Santa Procedure Date: 10/19/2019 11:55 AM Date of : 1955 Age: 64 Procedure: Colonoscopy Indications: Screening for colorectal malignant neoplasm Providers: Jet Encarnacion MD Referring MD: Arleen Hwang Medicines: Monitored Anesthesia Care Patient Profile: This is a 64 year old male. Refer to note in patient chart for documentation of history and physical. Last Colonoscopy: 5 years ago. Complications: No immediate complications. Procedure: Pre-Anesthesia Assessment: - Prior to the procedure, a History and Physical was performed, and patient medications and allergies were reviewed. The patient is competent. The risks and benefits of the procedure and the sedation options and risks were discussed with the patient. All questions were answered and informed consent was obtained. Patient identification and proposed procedure were verified by the physician, the nurse, the anesthesiologist and the copper etcher in the procedure room. Mental Status Examination: alert and oriented. Airway Examination: normal oropharyngeal airway and neck mobility. Respiratory Examination: clear to auscultation. CV Examination: normal. Prophylactic Antibiotics: The patient does not require prophylactic antibiotics. Prior Anticoagulants: The patient has taken no previous anticoagulant or antiplatelet agents. ASA Grade Assessment: III - A patient with severe systemic disease. After reviewing the risks and benefits, the patient was deemed in satisfactory condition to undergo the procedure. The anesthesia plan was to use monitored anesthesia care (MAC). Immediately prior to administration of medications, the patient was re-assessed for adequacy to receive sedatives. The heart rate, respiratory rate, oxygen saturations, blood pressure, adequacy of pulmonary ventilation, and response to care were monitored throughout the procedure. The physical status of the patient was re-assessed after the procedure. After I obtained informed consent, the scope was passed under direct vision. Throughout the procedure, the patient's blood pressure, pulse, and oxygen saturations were monitored continuously. The colonoscope was introduced through the anus and advanced to the cecum, identified by the appendiceal orifice, ileocecal valve and palpation. The colonoscopy was performed without difficulty. The patient tolerated the procedure well. The quality of the bowel preparation was good. Scope In: 12:09:12 PM Scope Out: 12:19:49 PM Total Procedure Duration Time 0 hours 10 minutes 37 seconds Findings: The perianal and digital rectal examinations were normal. Multiple small and large-mouthed diverticula were found in the entire colon. The exam was otherwise without abnormality. The retroflexed view of the distal rectum and anal verge was normal and showed no anal or rectal abnormalities. Impression: - Diverticulosis in the entire examined colon. - The examination was otherwise normal. - The distal rectum and anal verge are normal on retroflexion view. - No specimens collected. Recommendation: - Discharge patient to home. - Resume previous diet. - Continue present medications. - Repeat colonoscopy in 10 years for screening purposes. Jet Encarnacion MD 10/19/2019 12:23:09 PM This report has been signed electronically. Number of Addenda: 0 Note Initiated On: 10/19/2019 11:55 AM
[2019-10-19 12:25] VITALS: BP 157/84; BP 95/47; PULSE 57; RESP 16; TEMP 36.2; O2SAT 97
[2019-10-19 12:30] VITALS: BP 106/58; BP 157/84; PULSE 59; RESP 16; O2SAT 96
[2019-10-19 12:35] VITALS: BP 120/57; BP 157/84; PULSE 58; RESP 16; O2SAT 96
[2019-10-19 12:40] VITALS: BP 122/58; BP 157/84; PULSE 57; RESP 16; TEMP 36.5; O2SAT 92
[2019-10-19 13:07] VITALS: BP 157/84
== END 2019-10-19 13:52 | disposition home or self-care (01) ==
LOC: EN 11:03 → AC 11:05
PROVIDERS: Family Provider Internal Medicine; PCP Internal Medicine; Referring Provider Internal Medicine; Visit Provider Surgery
PROC: 0DJD8ZZ Inspection of Lower Intestinal Tract, Via Natural or Artificial Opening Endoscopic (ICD-10-PCS; CPT 45378; principal; 2019-10-19 11:55)
DX: Z12.11 Encounter for screening for malignant neoplasm of colon (principal); K57.30 Diverticulosis of large intestine without perforation or abscess without bleeding; F41.9 Anxiety disorder, unspecified; I10 Essential (primary) hypertension; G47.30 Sleep apnea, unspecified; L40.9 Psoriasis, unspecified; E66.9 Obesity, unspecified; Z68.42 Body mass index [BMI] 45.0-49.9, adult; Z79.82 Long term (current) use of aspirin; Z79.899 Other long term (current) drug therapy; Z85.51 Personal history of malignant neoplasm of bladder; Z87.891 Personal history of nicotine dependence
CPT/HCPCS: 45378; J7120

== ENCOUNTER → 2020-03-28 15:22 | Outpatient (CLI) | payer OTHER, SELFPAY ==
[2020-03-30 20:07] LABS: QNTFERON TB Mitogen Value > 10.00 IU/mL (.); QNTFERON TB Nil Value 0.04 IU/mL (.); QNTFERON TB1+ Ag Value 0.04 IU/mL (.); QNTFERON TB2+ Ag Value 0.06 IU/mL (.)
[2020-03-30 20:24] LABS: QNTIFERON TB Positive Criteria Negative (Negative)
== END ==
PROVIDERS: PCP Internal Medicine; Referring Provider Dermatology; Visit Provider Dermatology
DX: L20.89 Other atopic dermatitis (principal); L40.0 Psoriasis vulgaris; Z79.899 Other long term (current) drug therapy
CPT/HCPCS: 36415; 86480

== ENCOUNTER → 2020-07-25 12:29 | Outpatient (CLI) | payer OTHER, SELFPAY ==
--- NOTE | 2020-07-25 12:38 | MRI_ITS ---
STUDY: MRI ORBITS WITH AND WITHOUT CONTRAST REASON FOR EXAM: Male, 65 years old. bilat optic nerve atrophy TECHNIQUE: Standardized fat and water weighted pulse sequences were obtained in all 3 orthogonal planes, pre-and post contrast administration. IV 28 cc dotarem was administered for the contrast portion of the examination. COMPARISON: None. FINDINGS: Normal bilateral globes. Normal bilateral optic nerve sheath complexes and optic nerves. Normal bilateral intraconal and extraconal spaces. Normal bilateral extraocular muscles. Normal optic chiasm and post-chiasmatic tracts. Normal sella turcica, pituitary gland, infundibular stalk, and hypothalamus. Normal bilateral cavernous sinuses. Normal tectal plate and pineal gland. Normal flow voids within the major intracranial circulation suggesting patency by spin echo criteria. Normal size of the ventricles and extra-axial spaces for the patient''s age. Normal white matter tracts of the supratentorial brain. Normal bilateral basal ganglia. Normal thalami. There is no extra-axial fluid accumulation. Normal midbrain, jazzmine and medulla. Normal cerebellum. Normal basal cisterns. There is paranasal sinus disease, most prominent at the left maxillary sinus. MRI/Brain W/WO Contrast IMPRESSION: Unremarkable orbits. No acute intracranial abnormality or masses. Electronically Signed: Raeann Sosa MD at 15:49 EDT Tel , Service support ,
[2020-07-30 13:15] LABS: CREATININE FINGERSTICK 0.65 mg/dL (0.70-1.30)
[2020-07-30 13:16] LABS: EGFR FINGERSTICK > 60 mL/min (>60)
== END ==
PROVIDERS: PCP Internal Medicine
DX: H47.20 Unspecified optic atrophy (principal)
CPT/HCPCS: 70553; A9575

== ENCOUNTER 2020-10-17 17:27 | Inpatient (IN) | payer OTHER, SELFPAY ==
[2020-10-17] VITALS (15 sets, daily range): BP systolic 109–174; BP diastolic 59–76; PULSE 48–56; RESP 17–32; TEMP 36–36.6; O2SAT 85–96; BMI 41.4; BMI 38.6
--- NOTE | 2020-10-17 17:56 | ED.DCSUM_ITS ---
History of Present Illness Chief Complaint: Shortness of Breath Narrative: Patient is a 65-year-old male who presents with shortness of breath. He is known to be COVID-19 positive. He actually initially developed generalized malaise and diarrhea about 3 weeks ago. About 1 week ago he developed fevers and lost his sense of taste and smell. He saw his primary care provider and had an outpatient COVID-19 test which was positive. He began to feel short of breath couple of days ago and much worse today. He does report cough occasionally productive of sputum. He denies chest pain. No vomiting. He denies any history of underlying lung disease such as asthma or COPD. He does have a history of bladder cancer but this was treated surgically and he did not receive chemo or radiation. He is otherwise treated for hypertension and hyperlipidemia. Past Medical History - Allergies and Home Meds Allergies/Adverse Reactions: Allergies Penicillins Allergy (Verified 10/19/19 11:13) Itching Primary Care Physician: Arleen Hwang MD [Primary Care Provider] - Past Medical History: - - Hypertension, hyperlipidemia, history of bladder cancer Smoking Status: Former smoker Review of Systems All systems negative except as indicated General: Reports: Fever, Malaise Eyes: Denies: Visual changes - bilaterally ENT: Reports: - - Loss of sense of taste and smell Cardiovascular: Denies: Chest pain Respiratory: Reports: Dyspnea, Cough, Sputum Gastrointestinal: Reports: Diarrhea. Denies: Abdominal pain, Nausea, Vomiting Musculoskeletal: Denies: Myalgias, Arthralgias Skin: Denies: Rash Neurological: Denies: Headache Hematologic: Denies: Easy bruising Allergy: Denies: Uticaria Physical Exam Vital Signs/Narrative: Vital Signs Temp Pulse Resp BP Pulse Ox 10/17/20 17:48 53 L 18 87 10/17/20 17:28 96.8 F L 53 L 32 H 115/66 85 Inital Vital Signs reviewed: Yes General: Obese Head: Normocephalic Eyes: EOMI ENT: Moist mucous membranes Neck: Supple Cardiovascular: Regular rate, Regular rhythm Respiratory: - - Tachypnea with increased work of breathing, diffuse inspiratory and expiratory wheezing Abdomen: Soft, Nontender Extremities: Nontender Skin: Diaphoresis Neurological: Alert Psychological: Normal affect Diagnostic/Tx/Re-eval Impressions Chest CTA 10/17/20 18:31 IMPRESSION: Extensive bilateral PE. Low-density filling defects noted within the distal aspects of both main pulmonary arteries extending into all 5 pulmonary lobes Diffuse interstitial and airspace opacifications in the periphery of both lung morejon consistent with Covid pneumonia. No pleural or pericardial effusions Degenerative bony changes N.B. : The above information has been verbally conveyed by Chucho Garcia MD to Javier Rosales MD, on 10/17/2020 19:13:30 (ET). Electronically Signed: Chucho Garcia MD at 19:14 EST , Service support , ADDENDUM: 10/17/20 192 IMPRESSION: Extensive bilateral PE. Low-density filling defects noted within the distal aspects of both main pulmonary arteries extending into all 5 pulmonary lobes Diffuse interstitial and airspace opacifications in the periphery of both lung morejon consistent with Covid pneumonia. No pleural or pericardial effusions Degenerative bony changes N.B. : The above information has been verbally conveyed by Chucho Garcia MD to Javier Rosales MD, on 10/17/2020 19:13:30 (ET). Electronically Signed: Chucho Garcia MD at 19:14 EST , Service support , 10/17/20 18:31 CTA Chest W/WO Contrast [CT] Stat Laboratory Results 10/17/20 10/17/20 10/17/20 17:40 17:40 17:40 WBC 8.9 RBC 4.24 L Hgb 14.1 Hct 41.5 MCV 97.9 H MCH 33.3 H MCHC 34.0 RDW Std Deviation 46.2 H RDW Coeff of Justine 13.2 Plt Count 141 L MPV 10.2 Immature Gran % (Auto) 0.900 Neut % (Auto) 87.3 H Lymph % (Auto) 6.2 L [place] % (Auto) 5.2 Eos % (Auto) 0.2 Baso % (Auto) 0.2 Absolute Neuts (auto) 7.8 H Absolute Lymphs (auto) 0.55 L Nucleated RBC % 0 Differential Comment SCANNED PT INR Sodium 134 L Potassium 4.0 Chloride 100 Carbon Dioxide 22.0 Anion Gap 12 BUN 57 H Creatinine 1.62 H Estim Creat Clear Calc 49.71 Est GFR (MDRD) Af Amer 56 L Est GFR (MDRD) Non-Af 46 L BUN/Creatinine Ratio 35.2 H Glucose 149 H Lactic Acid 3.5 H* Calcium 8.8 Total Bilirubin 1.10 H AST 52 H ALT 28 Alkaline Phosphatase 89 Troponin I Total Protein 7.1 Albumin 2.9 L Globulin 4.2 Albumin/Globulin Ratio 0.7 L 10/17/20 10/17/20 17:40 17:40 WBC RBC Hgb Hct MCV MCH MCHC RDW Std Deviation RDW Coeff of Justine Plt Count MPV Immature Gran % (Auto) Neut % (Auto) Lymph % (Auto) [place] % (Auto) Eos % (Auto) Baso % (Auto) Absolute Neuts (auto) Absolute Lymphs (auto) Nucleated RBC % Differential Comment PT 14.9 INR 1.2 Sodium Potassium Chloride Carbon Dioxide Anion Gap BUN Creatinine Estim Creat Clear Calc Est GFR (MDRD) Af Amer Est GFR (MDRD) Non-Af BUN/Creatinine Ratio Glucose Lactic Acid Calcium Total Bilirubin AST ALT Alkaline Phosphatase Troponin I 0.100 H Total Protein Albumin Globulin Albumin/Globulin Ratio - Medical Decision Making Initially patient was 91% on 15 L. Labs notable for lactic acid of 3.5, mild elevation of troponin at 0.1. Additionally his renal function shows creatinine of 1.6 previously normal at 0.8 consistent with acute kidney injury. He was treated with IV fluids. EKG shows sinus bradycardia with a first-degree AV block at a rate of 49. Given his profound hypoxia I had high clinical suspicion for pulmonary embolism. A CT angiogram of the chest was obtained. This shows extensive bilateral pulmonary emboli as well as diffuse infiltrates consistent with Covid pneumonia. Patient will be started on a heparin infusion. He was also given Levaquin for potential secondary bacterial pneumonia. He was given IV Decadron. After his CT he desaturated into the 70s again. He was placed on high flow nasal cannula and is maintaining an oxygen saturation of 92 to 93% on high flow nasal cannula. Patient will be discussed with the hospitalist and admitted. - Critical Care Time Critical care time (excluding procedures): 30-74 minutes ED Disposition - Plan for ED Patient: Disposition: Acute Care Hospital [facility] Diagnosis: Pulmonary embolism, COVID-19, Respiratory failure with hypoxia, Acute kidney injury Referrals: Arleen Hwang MD [Primary Care Provider] -
[2020-10-17 17:57] LABS: Absolute Lymphocyte Count 0.55 X10^3/uL (0.83-4.51); Absolute Neutrophil Count 7.8 X10^3/uL (2.0-7.7); Basophil# 0.02 X10^3/uL; Basophil% 0.2 % (0-1); Eosinophil# 0.02 X10^3/uL; Eosinophils% 0.2 % (0-5); Hematocrit 41.5 % (40-54); Hemoglobin 14.1 g/dL (13.0-16.5); Lymphocyte # 0.55 X10^3/ul (4.0); Lymphocyte % 6.2 % (19-41); Mean Corpuscular Hgb 33.3 pg (27.0-32.0); Mean Corpuscular Volume 97.9 fL (80-94); Mean Platelet Vol. 10.2 fl (6.2-12.0); Monocyte# 0.46 X10^3/uL; Monocyte% 5.2 % (0-10); NRBC Flagged by Analyzer 0 % (0-5); Neutrophil # 7.76 X10^3/uL (2.7-7.7); Neutrophil % 87.3 % (47-70); POSITIVE DIFFERENTIAL YES; Platelet Count 141 K/mm3 (150-450); RBC Distribution Width CV 13.2 % (11.6-14.6); RBC Distribution Width SD 46.2 fl (35.1-43.9); Red Blood Count 4.24 M/mm3 (4.6-6.2); White Blood Count 8.9 K/mm3 (4.4-11.0)
[2020-10-17 18:01] LABS: Differential Indicated SCAN CRITERIA MET
[2020-10-17] MEDS: Ipratropium/Albuterol Sulfate 3 ML AMPUL.NEB INHALATION (18:19)
[2020-10-17 18:22] LABS: International Normalized Ratio 1.2; Prothrombin Time (Protime)PT. 14.9 SECONDS (11.7-14.9)
[2020-10-17 18:24] LABS: ALB/GLOB Ratio 0.7 RATIO (0.9-2.4); AST(SGOT) 52 U/L (15-37); Alanine Aminotransfer ALT/SGPT 28 U/L (16-61); Albumin, Serum 2.9 g/dL (3.2-5.0); Alkaline Phosphatase 89 U/L (45-117); Anion Gap 12 (5-15); BUN 57 mg/dL (7-18); BUN/Creat Ratio 35.2 RATIO (10-20); Calcium,Total 8.8 mg/dL (8.5-10.1); Chloride 100 mmol/L (98-107); Creatinine, Serum 1.62 mg/dL (0.70-1.30); EST Glomerular Filtration Rate 46 mL/min (>60); Est Glom Filt Rate - Afr Amer 56 mL/min (>60); Estimated Creatinine Clearance 49.71 ml/min; Globulin 4.2 g/dL (2.2-4.2); Glucose 149 mg/dL (74-106); Lactic Acid 3.5 mmol/L (0.4-1.9); Protein, Total 7.1 g/dL (6.4-8.2); Sodium Level 134 mmol/L (136-145)
[2020-10-17 18:27] LABS: Differential Comment SCANNED
--- NOTE | 2020-10-17 18:31 | CT_ITS ---
STUDY: CTA CHEST REASON FOR EXAM: Male, 65 years old. SEVERE HYPOXIA. +COVID RADIATION DOSAGE (If Supplied By Facility): CTDIvol = ( 15.04 ) mGy, DLP = ( 561.62 ) mGycm TECHNIQUE: The examination was performed with the intravenous administration of IV 100mL Isovue-370. Post-processing of the angiographic images was performed, with multiplanar reformation and 3D reconstruction. Individualized dose optimization techniques were used for this CT. COMPARISON: None. FINDINGS: Multiple low-density filling defects noted within the distal aspects of both main pulmonary arteries extending into the left upper and lower lobes as well as the right upper middle and lower lobes. This is consistent with extensive bilateral PE. Lung windows show diffuse patchy interstitial and airspace opacifications in both lung morejon without effusions consistent with Covid pneumonia. Soft tissue windows show normal-appearing thyroid gland. There are scattered subcentimeter axillary and mediastinal lymph nodes. There are calcified coronary vessels. No pleural or pericardial effusions. Limited cuts through the upper abdomen do not show suspicious abnormality, bony structures show degenerative change. CT/CTA Chest W/WO Contrast IMPRESSION: Extensive bilateral PE. Low-density filling defects noted within the distal aspects of both main pulmonary arteries extending into all 5 pulmonary lobes Diffuse interstitial and airspace opacifications in the periphery of both lung morejon consistent with Covid pneumonia. No pleural or pericardial effusions Degenerative bony changes N.B. : The above information has been verbally conveyed by Chucho Garcia MD to Javier Rosales MD, on 10/17/2020 19:13:30 (ET). Electronically Signed: Chucho Garcia MD at 19:14 EST , Service support ,
--- NOTE | 2020-10-17 19:38 | DCINST.ED_ITS ---
ED Disposition - Plan for ED Patient: Disposition: Acute Care Hospital [facility] Diagnosis: Pulmonary embolism, COVID-19, Respiratory failure with hypoxia, Acute kidney injury Referrals: Arleen Hwang MD [Primary Care Provider] -
[2020-10-17] MEDS: 0.9% Normal Saline 1,000 ML 999 ML IV (19:51)
[2020-10-17 19:54] LABS: Partial Thromboplast Time 36.6 Seconds (24.1-36.2)
--- NOTE | 2020-10-17 19:54 | HP.PCM_ITS ---
Problem List (1) Depression Status: Chronic (2) Hypertension Status: Chronic (3) Pulmonary embolism Status: Acute (4) COVID-19 Status: Acute (5) Respiratory failure with hypoxia Status: Acute (6) Acute kidney injury Status: Acute History of Present Illness Date of Admission: 10/17/20 Chief Complaint: Shortness of breath. The patient is a 65 year old M with past medical history as mentioned above presented to the emergency room because of shortness of breath. Shortness of breath started 4 days ago, both at rest and with exertion, aggravated by any type of activity, associated with mild cough and minimal sputum as well as profound fatigue and weakness. Patient mentioned that over the last 3 weeks, he developed symptoms of malaise, weakness, diarrhea and fever as well as loss of sense of taste and smell. He went to see his PCP and he was tested for COVID-19 8 days ago and came back positive 2 days later. He mentioned that he has been having diarrhea as well, no nausea vomiting and no significant abdominal pain. He had a fever of up to 101 Fahrenheit which was before he tested positive for COVID-19. In the emergency department, patient was afebrile, heart rate has been in the 50s, blood pressure stable, pulse ox was 85% on 3 L, went up to 87% on 15 L and then started on airvo. Routine blood work was remarkable for BUN of 57, creatinine 1.62. Lactic acid was 3.5. LFT was unremarkable. Troponin was 0.100. EKG revealed sinus bradycardia with first-degree AV block, heart rate has been in the 50s, no acute ischemic changes. CTA chest done and revealed extensive bilateral PEs, diffuse interstitial airspace disease and opacifications consistent with COVID-19 pneumonia. Patient is being admitted for acute hypoxic respiratory failure secondary to COVID-19 pneumonia as well as extensive bilateral PEs and also found to have acute kidney injury. Past Medical History Past Medical History (Chronic Problems): Chronic Problems Depression (Chronic) Hypertension (Chronic) Allergies Penicillins Allergy (Verified 10/19/19 11:13) Itching Home Medications: Ambulatory Orders Medication Instructions Recorded Amlodipine [Norvasc] 10 mg PO QHS 10/14/19 Carvedilol [Coreg] 25 mg PO BID 10/14/19 Colestipol Tablet [Colestid Tablet] 1 gm PO QHS 10/14/19 Escitalopram Oxalate [Lexapro] 20 mg PO DAILY 10/14/19 Vit C/E/Zn/Coppr/Lutein/Zeaxan 1 cap PO BID 10/14/19 [Preservision Areds 2 Softgel] Aspirin [Aspirin, Baby] 81 mg PO DAILY@0800 10/17/20 Cholecalciferol (Vitamin D3) 2,000 unit PO DAILY 10/17/20 [Vitamin D3] Losartan Potassium 50 mg PO DAILY 10/17/20 Surgical History: appendectomy, cholecystectomy, herniorrhaphy Psychiatric History: Depression Lives: Spouse/ Significant Other Smoking Status: Former smoker Alcohol: Heavy Drugs: None - *Family History Maternal History Items: No pertinent history Paternal History Items: No pertinent history Review of Systems Constitutional: Reports: Anorexia, Fever, Malaise, Weakness, Fatigue. Denies: Chills Eyes: Denies: Blurred vision, Double vision, Drainage, Redness HEENT: Denies: Difficulty Hearing, Ear Pain, Eye Pain, Nasal Congestion, Sore Throat Cardiovascular: Denies: Chest Pain, Chest Pressure, Chest Tightness, Edema, Heaviness, Palpitations, Syncope Respiratory: Reports: Cough, Shortness of Breath, Shortness of breath at rest, Shortness of breath upon exertion. Denies: Hemoptysis, Pleuritic Pain, Sputum production, Wheezing Gastrointestinal: Reports: Diarrhea. Denies: Abdominal Pain, Constipation, Nausea, Vomiting Genitourinary: Denies: Dysuria, Frequency, Hematuria Musculoskeletal: Denies: Arm Pain, Back Pain, Foot Pain Skin: Denies: Dryness, Rash Neurological: Denies: Balance problems, Blurred vision, Double vision, Change in Speech, Slurred speech, Headaches, Incoordination Psychiatric: Reports: Depression. Denies: Anxiety Endocrine: Denies: Change in Body Habitus, Polydipsia, Polyuria VTE Information - Inpt Only VTE Present on Admission: Yes VTE Mechan Device Prophylaxis: None VTE Pharm Prophylaxis ordered?: No Patient Problems: Active and Suspected Problems Pulmonary embolism (Acute) COVID-19 (Acute) Respiratory failure with hypoxia (Acute) Acute kidney injury (Acute) - Physical Exam Vitals/I&O's: Vital Signs Temp Pulse Resp BP Pulse Ox 97.8 F 50 L 22 H 109/68 96 10/17/20 19:05 10/17/20 19:05 10/17/20 19:05 10/17/20 19:05 10/17/20 19:05 Oxygen Flow Rate (L/min) 60 Oxygen Delivery Method Airvo Weight: 297 lb Body Mass Index (BMI) 41.4 General: Alert, Oriented x3, Cooperative, - - Moderately short of breath. HEENT: Atraumatic, PERRLA, EOMI, Normocephalic Oral: Moist Mucosa, No Gingival or Mucosal Lesions/ Ulcerations Neck: Supple, No JVD, Negative Carotid Bruits, Trachea Midline, Thyroid Normal Size and Texture Lungs: No rhonchi, No wheeze, No rales, Diminished, Short of Breath, Tachypneic, - - Decreased breath sounds bilateral, otherwise clear. Cardiovascular: Regular rate, Regular Rhythm, Normal S1, Normal S2, PMI Normal, Bradycardic Abdomen: Bowel Sounds Present, Soft, Non Tender, Non-Distended, No Hepato- splenomegaly, Obese Extremities: No clubbing, No cyanosis, Edema - Trace edema. Skin: No rashes, No breakdown Lymphatic: No Cervical, Supraclavicular, or Inguinal Adenopathy Neurological: Cranial nerves II-XII grossly intact, Motor Exam 5/5 strength throughout Psych/Mental Status: Normal Affect, Appropriate, Alert and oriented to time, place, person, mood and affect Laboratory Results 10/17/20 17:40: WBC 8.9, RBC 4.24 L, Hgb 14.1, Hct 41.5, MCV 97.9 H, MCH 33.3 H, MCHC 34.0, RDW Std Deviation 46.2 H, RDW Coeff of Justine 13.2, Plt Count 141 L, MPV 10.2, Immature Gran % (Auto) 0.900, Neut % (Auto) 87.3 H, Lymph % (Auto) 6.2 L, [place] % (Auto) 5.2, Eos % (Auto) 0.2, Baso % (Auto) 0.2, Absolute Neuts (auto) 7.8 H, Absolute Lymphs (auto) 0.55 L, Nucleated RBC % 0, Differential Comment SCANNED 10/17/20 17:40: Sodium 134 L, Potassium 4.0, Chloride 100, Carbon Dioxide 22.0, Anion Gap 12, BUN 57 H, Creatinine 1.62 H, Estim Creat Clear Calc 49.71, Est GFR (MDRD) Af Amer 56 L, Est GFR (MDRD) Non-Af 46 L, BUN/Creatinine Ratio 35.2 H, Glucose 149 H, Calcium 8.8, Total Bilirubin 1.10 H, AST 52 H, ALT 28, Alkaline Phosphatase 89, Total Protein 7.1, Albumin 2.9 L, Globulin 4.2, Albumin/Globulin Ratio 0.7 L 10/17/20 17:40: Lactic Acid 3.5 H* 10/17/20 17:40: PT 14.9, INR 1.2 10/17/20 17:40: Troponin I 0.100 H 10/17/20 17:50: APTT 36.6 H Clinical Impression(s) from Imaging Studies Chest CTA 10/17/20 18:31 IMPRESSION: Extensive bilateral PE. Low-density filling defects noted within the distal aspects of both main pulmonary arteries extending into all 5 pulmonary lobes Diffuse interstitial and airspace opacifications in the periphery of both lung morejon consistent with Covid pneumonia. No pleural or pericardial effusions Degenerative bony changes N.B. : The above information has been verbally conveyed by Chucho Garcia MD to Javier Rosales MD, on 10/17/2020 19:13:30 (ET). Electronically Signed: Chucho Garcia MD at 19:14 EST , Service support , ADDENDUM: 10/17/20 192 IMPRESSION: Extensive bilateral PE. Low-density filling defects noted within the distal aspects of both main pulmonary arteries extending into all 5 pulmonary lobes Diffuse interstitial and airspace opacifications in the periphery of both lung morejon consistent with Covid pneumonia. No pleural or pericardial effusions Degenerative bony changes N.B. : The above information has been verbally conveyed by Chucho Garcia MD to Javier Rosales MD, on 10/17/2020 19:13:30 (ET). Electronically Signed: Chucho Garcia MD at 19:14 EST , Service support , Current Medications Heparin Sodium (Porcine) (Heparin Injection (Vial) 5,000 Unit/Ml Vial) 0 unit IV UD PRN; Protocol PRN Reason: dose adjustment Heparin Sodium/Dextrose () 25,000 units in 250 mls @ 17 mls/hr IV .[id number] VERONICA; Protocol Sodium Chloride () 1,000 mls @ 999 mls/hr IV .[id number] ONE Stop: 10/17/20 20:24 Last Admin: 10/17/20 19:51 Dose: 999 mls/hr Documented by: Levofloxacin (Levaquin Iv) 750 mg in 150 mls @ 100 mls/hr IV X1 ONE Stop: 10/17/20 21:00 Assessment/Plan All Active Problems Pulmonary embolism (Acute) COVID-19 (Acute) Respiratory failure with hypoxia (Acute) Acute kidney injury (Acute) This is a 65 years old male patient presented to the emergency room because of shortness of breath, he was tested positive for COVID-19 8 days ago and he was found to have extensive bilateral lung opacifications as well as extensive bilateral PEs and is being admitted for acute hypoxic respiratory failure. #1 acute hypoxic respiratory failure: Multifactorial secondary to COVID-19 pneumonia, extensive PEs. CTA chest done and reviewed. Currently, patient is on oxygen by Airvo. His blood pressure and heart rate are stable, afebrile. Plan: Admit to ICU, critical care monitoring, continuous pulse ox, complete bedrest, gentle limited IV fluids for hydration, blood culture, urinalysis, urine culture, start IV Decadron and remdesivir for COVID-19, continue IV heparin drip, continue oxygen by Airvo, critical care consult, repeat CBC and CMP tomorrow morning, PT OT evaluation and treatment when appropriate. #2 acute bilateral COVID-19 pneumonia: CTA chest reviewed as above. Patient tested positive for COVID-19 8 days ago. He received 1 dose of IV Levaquin in t ED. Plan: IV Decadron, IV remdesivir, infectious disease consult, repeat CBC and CMP tomorrow morning. #3 acute extensive bilateral pulmonary emboli: Secondary to acute COVID-19. Patient started on IV heparin drip. Plan to continue IV heparin drip. #4 abnormal cardiac enzymes: It is likely due to acute respiratory failure and COVID-19, demand ischemia. EKG revealed sinus bradycardia with first-degree AV block, no acute ischemic changes. Plan: Cardiac monitoring, serial cardiac enzymes, continue aspirin, patient will be on IV heparin drip. #5 acute kidney injury: Secondary to poor oral intake and infection. Baseline kidney function is normal. Plan: Gentle IV fluids for hydration, encourage oral intake, repeat CMP tomorrow morning. #6 hypertension: Currently, blood pressure stable. Continue Norvasc, hold Coreg and losartan. #7 depression: Continue Lexapro. #8 CODE STATUS: Full code. I explained different types of CODE STATUS to the patient and he elected to go with full code, intubation, CPR and mechanical ventilation. #9 DVT prophylaxis: Patient will be on IV heparin drip. This note was generated with [employer] dictation software. It may contain incorrect words, spelling, and punctuation that were not noted in checking the note before signing. Inpatient E&M: 42142 Init Hosp L3
[2020-10-17] MEDS: levoFLOXacin IV 750 MG/150 ML BAG 100 MG IV (20:09)
[2020-10-17] MEDS: dexAMETHasone 4 MG/ML Vial 6 MG IV (20:09)
[2020-10-17] MEDS: Heparin Injection (Vial) 5,000 UNIT/ML VIAL 10500 UNIT IV (20:13)
[2020-10-17] MEDS: HEPARIN/D5w 25,000 UNITS 25,000 UNITS/250 ML IV.SOLN. 17 UNITS IV (20:15)
[2020-10-17 21:54] LABS: Reflex Lactate? Y
[2020-10-17 22:02] LABS: BNP,B-Type NATRIURETIC PEPTIDE 98.4 pg/mL (0-100)
[2020-10-17 22:05] LABS: LDH 651 U/L (87-241)
[2020-10-17 22:10] LABS: Procalcitonin 0.24 ng/mL (0.00-0.09)
[2020-10-17] MEDS: 0.9% Normal Saline 1,000 ML 100 ML IV (22:33)
[2020-10-17 23:08] LABS: Lactic Acid 2.1 mmol/L (0.4-1.9)
[2020-10-17 23:13] LABS: Mucous, Urine 0 SEEN /hpf (<or=2+); Red Blood Cells-Urine 0 SEEN /hpf (0-5); Squamous Epithelial Cells - UA 0 SEEN /hpf (0-5); White Blood Cells 0 SEEN /hpf (0-5)
[2020-10-17 23:15] LABS: Color, Urine Yellow (Yellow); Glucose, Dipstick Normal (Normal); Ketone-Dipstick Negative (Negative); Leukocyte Esterase-Dipstick Negative /ul (Negative); Nitrite-Dipstick Negative (Negative); Occult Blood-Urine Negative /ul (Negative); Protein-Dipstick 15 mg/dl (Negative); Urine Bilirubin Dipstick Negative (Negative); Urine Clarity Clear (Clear); Urine Urobilinogen Normal (Normal); Urine pH 6.5 (5.0 - 8.0)
[2020-10-17 23:20] LABS: Bacteria 1+ /hpf (None Seen)
[2020-10-18] VITALS (31 sets, daily range): BP systolic 105–172; BP diastolic 40–135; PULSE 41–64; RESP 14–27; TEMP 35.9–36.6; O2SAT 89–97
[2020-10-18] MEDS: 0.9% Saline Lock 10 ML Syringe IV (00:09)
[2020-10-18] MEDS: amLODIPine 10 MG Tablet PO ×2 (00:09→20:16)
--- NOTE | 2020-10-18 02:00 | CPS ---
Pt stated waking up sweating and worrying about his sleep apnea and if he's breathing through his nose on the AIRVO. Pt brought personal PAP unit and pt switched to that with 10L oxygen bleed in. Sats staying in low 90's and pt much more comfortable and able to get some rest.
[2020-10-18 03:07] LABS: Partial Thromboplast Time > 250.0 Seconds (24.1-36.2)
[2020-10-18 05:16] LABS: Absolute Lymphocyte Count 0.37 X10^3/uL (0.83-4.51); Absolute Neutrophil Count 4.6 X10^3/uL (2.0-7.7); Basophil# 0.01 X10^3/uL; Basophil% 0.2 % (0-1); Hemoglobin 11.4 g/dL (13.0-16.5); Lymphocyte # 0.37 X10^3/ul (4.0); Lymphocyte % 7.1 % (19-41); Mean Corp Hgb Conc 34.5 g/dL (32-36); Mean Corpuscular Hgb 33.9 pg (27.0-32.0); Mean Corpuscular Volume 98.2 fL (80-94); Mean Platelet Vol. 9.8 fl (6.2-12.0); Monocyte# 0.17 X10^3/uL; Monocyte% 3.3 % (0-10); NRBC Flagged by Analyzer 0 % (0-5); Neutrophil # 4.62 X10^3/uL (2.7-7.7); Neutrophil % 88.3 % (47-70); POSITIVE DIFFERENTIAL YES; Platelet Count 126 K/mm3 (150-450); RBC Distribution Width CV 12.9 % (11.6-14.6); RBC Distribution Width SD 46.5 fl (35.1-43.9); Red Blood Count 3.36 M/mm3 (4.6-6.2); White Blood Count 5.2 K/mm3 (4.4-11.0)
[2020-10-18 05:31] LABS: Differential Indicated SCAN CRITERIA MET
[2020-10-18 05:34] LABS: ALB/GLOB Ratio 0.7 RATIO (0.9-2.4); AST(SGOT) 27 U/L (15-37); Alanine Aminotransfer ALT/SGPT 20 U/L (16-61); Alkaline Phosphatase 64 U/L (45-117); Anion Gap 10 (5-15); BUN 38 mg/dL (7-18); BUN/Creat Ratio 46.1 RATIO (10-20); Calcium,Total 6.6 mg/dL (8.5-10.1); Chloride 112 mmol/L (98-107); Creatinine, Serum 0.82 mg/dL (0.70-1.30); EST Glomerular Filtration Rate 100 mL/min (>60); Est Glom Filt Rate - Afr Amer 121 mL/min (>60); Estimated Creatinine Clearance 98.21 ml/min; Glucose 124 mg/dL (74-106); Potassium 2.9 mmol/L (3.5-5.1); Sodium Level 142 mmol/L (136-145)
[2020-10-18 05:36] LABS: Differential Comment SCANNED
[2020-10-18] MEDS: Potassium Chloride 10mEq/100mL 10 MEQ/100 ML IV.SOLN. 100 MEQ IV BOLUS ×2 (09:26→11:32)
--- NOTE | 2020-10-18 10:19 | CON.PCM_ITS ---
Problem List (1) Depression Status: Chronic (2) Hypertension Status: Chronic (3) Pulmonary embolism Status: Acute (4) COVID-19 Status: Acute (5) Respiratory failure with hypoxia Status: Acute (6) Acute kidney injury Status: Acute Reason for Consult Date of Consultation: 10/18/20 Reason for Consultation: COVID-19 pneumonia History of Present Illness: The patient is a 65 year old M, with past medical history listed below, who presented to [facility] on 10/17/2020 secondary to progressive shortness of breath, diarrhea and malaise. Patient reportedly had lost his sense of taste and smell approximately a week ago. Patient had developed fevers and outpatient COVID-19 test came back positive. Patient stated that he started to have improvement in his diarrhea, but got progressively more short of breath, so presented to the ER for evaluation. Patient does occasionally cough of clear sputum, but otherwise states cough is been doing relatively benign. Patient denies any chest pain, vomiting, melena or hematochezia. Patient denied history of underlying COPD or asthma, but does have emphysematous changes noted on imaging later in his presentation. Patient has hypertension, hyperlipidemia and morbid obesity. On evaluation in the ER, patient was noted to be hypoxic at 85%, but otherwise hemodynamically stable. Patient was tachypneic on presentation, but improved with supplemental oxygen. ER staff reported diffuse inspiratory and expiratory wheezing initially. Patient had a CTA showing extensive bilateral PEs with diffuse groundglass opacities and emphysematous changes. Laboratory work-up showed a white blood cell count of 8.9, hemoglobin 14.1 and platelets of 141. Patient's BUN was 51 with creatinine of 1.62 and lactate was elevated at 3.5. LFTs were within normal limits. Troponin was slightly elevated. Patient did require 15 L nasal cannula oxygen to maintain saturations initially. Patient was given IV Decadron and was dosed with Remdesivir overnight by hospitalist. On my evaluation this morning, patient reported he was subjectively improved. Patient had been placed on Airvo with improvement in saturations. Patient did require increased FiO2 to move to the chair. No bleeding complications have been reported. Patient denies any current chest pain, nominal pain, nausea or vomiting. Patient has not had a bowel movement since admitted to the hospital. Patient does have a history of smoking in the past. Patient has never had a pulmonary function test or seen a machinist instructor. Patient does have obstructive sleep apnea and reports he has been compliant with his BiPAP therapy. Patient did report it was difficult to tolerate his BiPAP overnight secondary to his acute status. Review of systems otherwise negative from a constitutional, HEENT, respiratory, cardiovascular, GI, genitourinary, musculoskeletal, skin, neurologic, psychiatric and hematologic system unless stated above. Past Medical History Past Medical History (Chronic Problems): Chronic Problems Depression (Chronic) Hypertension (Chronic) Allergies Penicillins Allergy (Verified 10/19/19 11:13) Itching Home Medications: Ambulatory Orders Medication Instructions Recorded Amlodipine [Norvasc] 10 mg PO QHS 10/14/19 Carvedilol [Coreg] 25 mg PO BID 10/14/19 Colestipol Tablet [Colestid Tablet] 1 gm PO QHS 10/14/19 Escitalopram Oxalate [Lexapro] 20 mg PO DAILY 10/14/19 Vit C/E/Zn/Coppr/Lutein/Zeaxan 1 cap PO BID 10/14/19 [Preservision Areds 2 Softgel] Aspirin [Aspirin, Baby] 81 mg PO DAILY@0800 10/17/20 Cholecalciferol (Vitamin D3) 2,000 unit PO DAILY 10/17/20 [Vitamin D3] Losartan Potassium 50 mg PO DAILY 10/17/20 Surgical History: appendectomy, cholecystectomy, herniorrhaphy Psychiatric History: Depression Lives: Spouse/ Significant Other Smoking Status: Former smoker Tobacco Use: Cigarettes, Cigars Alcohol: Heavy Drugs: None - *Family History Maternal History Items: No pertinent history Paternal History Items: No pertinent history Review of Systems Comment: See HPI Patient Problems: Active and Suspected Problems Pulmonary embolism (Acute) COVID-19 (Acute) Respiratory failure with hypoxia (Acute) Acute kidney injury (Acute) Objective: All imaging was personally reviewed. Agree with formal interpretation of CTA with the addition of emphysematous changes. Patient does not have any echocardiogram or pulmonary function tests available for review. - Physical Exam Vitals/I&O's: Vital Signs Temp Pulse Resp BP Pulse Ox 35.9 C L 54 L 25 H 172/75 H 95 10/18/20 08:00 10/18/20 10:00 10/18/20 10:00 10/18/20 10:00 10/18/20 10:00 Oxygen Flow Rate (L/min) 60 Oxygen Delivery Method Airvo Weight: 128.3 kg Body Mass Index (BMI) 38.6 Intake and Output for Last 24 Hours 10/16/20 10/17/20 10/18/20 23:59 23:59 23:59 Intake Total 1150 / 1150 1265.91 / 1265.91 Output Total 150 / 450 950 / 950 Balance 1000 / 700 315.91 / 315.91 General: Alert, Oriented x3, Cooperative, - - Mild to moderate conversational dyspnea. Morbidly obese. HEENT: Atraumatic, PERRLA, EOMI, Normocephalic, - - No scleral icterus or injection noted Oral: Moist Mucosa, No Gingival or Mucosal Lesions/ Ulcerations Neck: Supple, No JVD, No Nodes, Trachea Midline Lungs: No rhonchi, No wheeze, No rales, Diminished Cardiovascular: Normal S1, Normal S2, No murmurs, Bradycardic, No rub noted, No Gallop Abdomen: Bowel Sounds Present, Soft, Non Tender, Non-Distended, Obese Extremities: No clubbing, No cyanosis, Edema Skin: No rashes, No breakdown Musculoskeletal: No Tenderness to Palpation of Joints or Extremities Lymphatic: No Cervical, Supraclavicular, or Inguinal Adenopathy Neurological: Cranial nerves II-XII grossly intact, Neuro grossly intact, Motor Exam 5/5 strength throughout Psych/Mental Status: Alert and oriented to time, place, person, mood and affect Laboratory Results 10/17/20 17:40: WBC 8.9, RBC 4.24 L, Hgb 14.1, Hct 41.5, MCV 97.9 H, MCH 33.3 H, MCHC 34.0, RDW Std Deviation 46.2 H, RDW Coeff of Justine 13.2, Plt Count 141 L, MPV 10.2, Immature Gran % (Auto) 0.900, Neut % (Auto) 87.3 H, Lymph % (Auto) 6.2 L, [place] % (Auto) 5.2, Eos % (Auto) 0.2, Baso % (Auto) 0.2, Absolute Neuts (auto) 7.8 H, Absolute Lymphs (auto) 0.55 L, Nucleated RBC % 0, Differential Comment SCANNED 10/17/20 17:40: Sodium 134 L, Potassium 4.0, Chloride 100, Carbon Dioxide 22.0, Anion Gap 12, BUN 57 H, Creatinine 1.62 H, Estim Creat Clear Calc 49.71, Est GFR (MDRD) Af Amer 56 L, Est GFR (MDRD) Non-Af 46 L, BUN/Creatinine Ratio 35.2 H, Glucose 149 H, Calcium 8.8, Total Bilirubin 1.10 H, AST 52 H, ALT 28, Alkaline Phosphatase 89, Total Protein 7.1, Albumin 2.9 L, Globulin 4.2, Albumin/Globulin Ratio 0.7 L 10/17/20 17:40: Lactic Acid 3.5 H* 10/17/20 17:40: PT 14.9, INR 1.2 10/17/20 17:40: Troponin I 0.100 H 10/17/20 17:40: APTT 36.6 H 10/17/20 17:40: B-Natriuretic Peptide 98.4 10/17/20 17:40: Lactate Dehydrogenase 651 H 10/17/20 17:40: Procalcitonin 0.24 H 10/17/20 21:30: Troponin I 0.096 H 10/17/20 21:30: Lactic Acid 2.1 H* 10/17/20 21:50: Urine Color Yellow, Urine Clarity Clear, Urine pH 6.5, Ur Specific [place] 1.010, Urine Protein 15 H, Urine Glucose (UA) Normal, Urine Ketones Negative, Urine Occult Blood Negative, Urine Nitrite Negative, Urine Bilirubin Negative, Urine Urobilinogen Normal, Ur Leukocyte Esterase Negative, Urine RBC 0 SEEN, Urine WBC 0 SEEN, Ur Squamous Epith Cells 0 SEEN, Urine Bacteria 1+, Urine Mucus 0 SEEN 10/18/20 00:05: Troponin I 0.084 H 10/18/20 02:20: APTT > 250.0 H* 10/18/20 05:00: WBC 5.2, RBC 3.36 L, Hgb 11.4 L, Hct 33.0 L, MCV 98.2 H, MCH 33.9 H, MCHC 34.5, RDW Std Deviation 46.5 H, RDW Coeff of Justine 12.9, Plt Count 126 L, MPV 9.8, Immature Gran % (Auto) 1.100 H, Neut % (Auto) 88.3 H, Lymph % (Auto) 7.1 L, [place] % (Auto) 3.3, Eos % (Auto) 0.0, Baso % (Auto) 0.2, Absolute Neuts (auto) 4.6, Absolute Lymphs (auto) 0.37 L, Nucleated RBC % 0, Differential Comment SCANNED 10/18/20 05:00: Sodium 142, Potassium 2.9 L, Chloride 112 H, Carbon Dioxide 20.0 L, Anion Gap 10, BUN 38 H, Creatinine 0.82, Estim Creat Clear Calc 98.21, Est GFR (MDRD) Af Amer 121, Est GFR (MDRD) Non-Af 100, BUN/Creatinine Ratio 46.1 H, Glucose 124 H, Calcium 6.6 L, Total Bilirubin 0.50, AST 27, ALT 20, Alkaline Phosphatase 64, Total Protein 5.0 L, Albumin 2.0 L, Globulin 3.0, Albumin/Globulin Ratio 0.7 L Current Medications Acetaminophen (Acetaminophen 325 Mg Tablet) 650 mg PO Q6H PRN PRN PRN Reason: Pain Score 1-10/Temp > 100.7 F Albuterol Sulfate (Albuterol Ih 8.5 Gm (Proair) Inhaler (200 Puffs)) 2 puff INHALATION Q4H PRN PRN PRN Reason: Shortness of breath, wheezing Amlodipine Besylate (Amlodipine 10 Mg Tablet) 10 mg PO QHS [facility] Last Admin: 10/18/20 00:09 Dose: 10 mg Documented by: Aspirin (Aspirin E.C. 81 Mg Tablet) 81 mg PO DAILY [facility] Colestipol HCl (Colestipol Hcl 1 Gm Tablet) 1 gm PO QHS [facility] Last Admin: 10/18/20 05:28 Dose: Not Given Documented by: Dexamethasone Sodium Phosphate (Dexamethasone 10 Mg/Ml Vial) 6 mg IV DAILY [facility] Escitalopram Oxalate (Escitalopram Oxalate 20 Mg Tablet) 20 mg PO DAILY [facility] Heparin Sodium/Dextrose () 25,000 units in 250 mls @ 17 mls/hr IV .[id number] [facility]; Protocol Last Titration: 10/18/20 08:00 Dose: 1,400 units/hr, 14 mls/hr Documented by: Remdesivir 100 mg/ Sodium (Chloride) 250 mls @ 125 mls/hr IV QHS [facility] Stop: 10/21/20 23:59 Potassium Chloride () 10 meq in 100 mls @ 100 mls/hr IV BOLUS Q1H VERONICA Stop: 10/18/20 10:44 Last Admin: 10/18/20 09:26 Dose: 100 mls/hr Documented by: Ondansetron HCl (Ondansetron 4 Mg/2 Ml Vial) 4 mg IV Q8H PRN PRN PRN Reason: NAUSEA/VOMITING Senna/Docusate Sodium (Senna/Docusate Sodium 1 Tablet) 2 tablet PO BID PRN PRN PRN Reason: Constipation Clinical Impression(s) from Imaging Studies Chest CTA 10/17/20 18:31 IMPRESSION: Extensive bilateral PE. Low-density filling defects noted within the distal aspects of both main pulmonary arteries extending into all 5 pulmonary lobes Diffuse interstitial and airspace opacifications in the periphery of both lung morejon consistent with Covid pneumonia. No pleural or pericardial effusions Degenerative bony changes N.B. : The above information has been verbally conveyed by Chucho Garcia MD to Javier Rosales MD, on 10/17/2020 19:13:30 (ET). Electronically Signed: Chucho Garcia MD at 19:14 EST , Service support , ADDENDUM: 10/17/20 192 IMPRESSION: Extensive bilateral PE. Low-density filling defects noted within the distal aspects of both main pulmonary arteries extending into all 5 pulmonary lobes Diffuse interstitial and airspace opacifications in the periphery of both lung morejon consistent with Covid pneumonia. No pleural or pericardial effusions Degenerative bony changes N.B. : The above information has been verbally conveyed by Chucho Garcia MD to Javier Rosales MD, on 10/17/2020 19:13:30 (ET). Electronically Signed: Chucho Garcia MD at 19:14 EST , Service support , Assessment/Plan All Active Problems Pulmonary embolism (Acute) COVID-19 (Acute) Respiratory failure with hypoxia (Acute) Acute kidney injury (Acute) RECOMMENDATIONS: 1. Continue heparin drip for 24 hours 2. Potentially transition to a 10 a inhibitor tomorrow 3. Wean oxygen as tolerated 4. Continue BiPAP with sleep, supplemental oxygen as needed to keep saturations greater than 90% 5. Monitor bowel movements for melena IMPRESSIONS: 1. Acute hypoxic respiratory failure secondary to acute bilateral PE/COVID- 19 pneumonia Patient likely with PE secondary to COVID-19. Patient has reported diarrhea for the last week, but is unclear if there is melena present. Given drop in hemoglobin, would continue with heparin for 24 hours. If doing well at that point, transition to 10 a inhibitor may be appropriate. Continue to wean oxygen as tolerated. Patient will need to have BiPAP with sleep. Defer to infectious disease if remdesivir is necessary given protracted presentation. Do agree with IV Decadron, especially in the setting of emphysematous changes on CT scan. Patient would benefit from outpatient pulmonary function testing for quantification clarification of lung function. 2. Elevated troponin Likely combination of global hypoxia and acute kidney injury. Continue to monitor with telemetry. Would not recommend aggressive interventions at this time. Patient would benefit from an echocardiogram to evaluate for pulmonary hypertension. Okay to continue with Norvasc and Coreg from my perspective. Would hold losartan given risk of complicating acute kidney injury. 3. Acute kidney injury Suspected ATN secondary to global hypoxia. Continue to support blood pressure and monitor BMP on a daily basis. No indication for a nephrology consult for renal replacement therapy from my perspective. We will have to watch patient's fluid status closely given problem #1. 4. Morbid obesity/hypertension/depression/protracted presentation Complicates care, management, recovery and prognosis. Okay to continue with baseline medications with modifications listed above. Inpatient E&M: 50807 Init Hosp L3
[2020-10-18] MEDS: Escitalopram Oxalate 20 MG Tablet PO (10:46)
[2020-10-18] MEDS: Aspirin E.C. 81 MG Tablet PO (10:46)
[2020-10-18] MEDS: dexAMETHasone 10 MG/ML Vial 6 MG IV (10:46)
--- NOTE | 2020-10-18 10:52 | PCM.HP.ID ---
Problem List (1) COVID-19 Status: Acute Reason for Consult: covid Consulted by: Dr. Diaz History of Present Illness: The patient is a 65 year old M with sx starting 3 weeks ago with fever, chills, aches, change in taste/smell, diarrhea. Covid (+) 8 days ago. Lives alone, no sick contacts. Came to ED yesterday due to 4-5 days worsening cough and SOB. Otherwise feeling better. Found to have PEs, admitted on dex, remdesivir, hep gtt. Full ROS performed and neg except as noted above. - Medical History Past Medical History (Chronic Problems): Chronic Problems Depression (Chronic) Hypertension (Chronic) Allergies/Adverse Reactions: Allergies Penicillins Allergy (Verified 10/19/19 11:13) Itching Home Medications: Ambulatory Orders Medication Instructions Recorded Amlodipine [Norvasc] 10 mg PO QHS 10/14/19 Carvedilol [Coreg] 25 mg PO BID 10/14/19 Colestipol Tablet [Colestid Tablet] 1 gm PO QHS 10/14/19 Escitalopram Oxalate [Lexapro] 20 mg PO DAILY 10/14/19 Vit C/E/Zn/Coppr/Lutein/Zeaxan 1 cap PO BID 10/14/19 [Preservision Areds 2 Softgel] Aspirin [Aspirin, Baby] 81 mg PO DAILY@0800 10/17/20 Cholecalciferol (Vitamin D3) 2,000 unit PO DAILY 10/17/20 [Vitamin D3] Losartan Potassium 50 mg PO DAILY 10/17/20 - Social History SMOKING STATUS:: Former smoker Vital Signs Temp Pulse Resp BP Pulse Ox 96.7 F L 54 L 25 H 172/75 H 95 10/18/20 08:00 10/18/20 10:00 10/18/20 10:00 10/18/20 10:00 10/18/20 10:00 Oxygen Flow Rate (L/min) 60 Oxygen Delivery Method Airvo Weight: 128.3 kg Body Mass Index (BMI) 38.6 Laboratory Tests Past 24 Hrs 10/17/20 10/17/20 10/17/20 17:40 17:40 17:40 WBC 8.9 RBC 4.24 L Hgb 14.1 Hct 41.5 MCV 97.9 H MCH 33.3 H MCHC 34.0 RDW Std Deviation 46.2 H RDW Coeff of Justine 13.2 Plt Count 141 L MPV 10.2 Immature Gran % (Auto) 0.900 Neut % (Auto) 87.3 H Lymph % (Auto) 6.2 L [place] % (Auto) 5.2 Eos % (Auto) 0.2 Baso % (Auto) 0.2 Absolute Neuts (auto) 7.8 H Absolute Lymphs (auto) 0.55 L Nucleated RBC % 0 Differential Comment SCANNED PT INR APTT Sodium 134 L Potassium 4.0 Chloride 100 Carbon Dioxide 22.0 Anion Gap 12 BUN 57 H Creatinine 1.62 H Estim Creat Clear Calc 49.71 Est GFR (MDRD) Af Amer 56 L Est GFR (MDRD) Non-Af 46 L BUN/Creatinine Ratio 35.2 H Glucose 149 H Lactic Acid 3.5 H* Calcium 8.8 Total Bilirubin 1.10 H AST 52 H ALT 28 Alkaline Phosphatase 89 Lactate Dehydrogenase Troponin I B-Natriuretic Peptide Total Protein 7.1 Albumin 2.9 L Globulin 4.2 Albumin/Globulin Ratio 0.7 L Procalcitonin Urine Color Urine Clarity Urine pH Ur Specific [place] Urine Protein Urine Glucose (UA) Urine Ketones Urine Occult Blood Urine Nitrite Urine Bilirubin Urine Urobilinogen Ur Leukocyte Esterase Urine RBC Urine WBC Ur Squamous Epith Cells Urine Bacteria Urine Mucus 10/17/20 10/17/20 10/17/20 17:40 17:40 17:40 WBC RBC Hgb Hct MCV MCH MCHC RDW Std Deviation RDW Coeff of Justine Plt Count MPV Immature Gran % (Auto) Neut % (Auto) Lymph % (Auto) [place] % (Auto) Eos % (Auto) Baso % (Auto) Absolute Neuts (auto) Absolute Lymphs (auto) Nucleated RBC % Differential Comment PT 14.9 INR 1.2 APTT 36.6 H Sodium Potassium Chloride Carbon Dioxide Anion Gap BUN Creatinine Estim Creat Clear Calc Est GFR (MDRD) Af Amer Est GFR (MDRD) Non-Af BUN/Creatinine Ratio Glucose Lactic Acid Calcium Total Bilirubin AST ALT Alkaline Phosphatase Lactate Dehydrogenase Troponin I 0.100 H B-Natriuretic Peptide Total Protein Albumin Globulin Albumin/Globulin Ratio Procalcitonin Urine Color Urine Clarity Urine pH Ur Specific [place] Urine Protein Urine Glucose (UA) Urine Ketones Urine Occult Blood Urine Nitrite Urine Bilirubin Urine Urobilinogen Ur Leukocyte Esterase Urine RBC Urine WBC Ur Squamous Epith Cells Urine Bacteria Urine Mucus 10/17/20 10/17/20 10/17/20 17:40 17:40 17:40 WBC RBC Hgb Hct MCV MCH MCHC RDW Std Deviation RDW Coeff of Justine Plt Count MPV Immature Gran % (Auto) Neut % (Auto) Lymph % (Auto) [place] % (Auto) Eos % (Auto) Baso % (Auto) Absolute Neuts (auto) Absolute Lymphs (auto) Nucleated RBC % Differential Comment PT INR APTT Sodium Potassium Chloride Carbon Dioxide Anion Gap BUN Creatinine Estim Creat Clear Calc Est GFR (MDRD) Af Amer Est GFR (MDRD) Non-Af BUN/Creatinine Ratio Glucose Lactic Acid Calcium Total Bilirubin AST ALT Alkaline Phosphatase Lactate Dehydrogenase 651 H Troponin I B-Natriuretic Peptide 98.4 Total Protein Albumin Globulin Albumin/Globulin Ratio Procalcitonin 0.24 H Urine Color Urine Clarity Urine pH Ur Specific [place] Urine Protein Urine Glucose (UA) Urine Ketones Urine Occult Blood Urine Nitrite Urine Bilirubin Urine Urobilinogen Ur Leukocyte Esterase Urine RBC Urine WBC Ur Squamous Epith Cells Urine Bacteria Urine Mucus 10/17/20 10/17/20 10/17/20 21:30 21:30 21:50 WBC RBC Hgb Hct MCV MCH MCHC RDW Std Deviation RDW Coeff of Justine Plt Count MPV Immature Gran % (Auto) Neut % (Auto) Lymph % (Auto) [place] % (Auto) Eos % (Auto) Baso % (Auto) Absolute Neuts (auto) Absolute Lymphs (auto) Nucleated RBC % Differential Comment PT INR APTT Sodium Potassium Chloride Carbon Dioxide Anion Gap BUN Creatinine Estim Creat Clear Calc Est GFR (MDRD) Af Amer Est GFR (MDRD) Non-Af BUN/Creatinine Ratio Glucose Lactic Acid 2.1 H* Calcium Total Bilirubin AST ALT Alkaline Phosphatase Lactate Dehydrogenase Troponin I 0.096 H B-Natriuretic Peptide Total Protein Albumin Globulin Albumin/Globulin Ratio Procalcitonin Urine Color Yellow Urine Clarity Clear Urine pH 6.5 Ur Specific [place] 1.010 Urine Protein 15 H Urine Glucose (UA) Normal Urine Ketones Negative Urine Occult Blood Negative Urine Nitrite Negative Urine Bilirubin Negative Urine Urobilinogen Normal Ur Leukocyte Esterase Negative Urine RBC 0 SEEN Urine WBC 0 SEEN Ur Squamous Epith Cells 0 SEEN Urine Bacteria 1+ Urine Mucus 0 SEEN 10/18/20 10/18/20 10/18/20 00:05 02:20 05:00 WBC 5.2 RBC 3.36 L Hgb 11.4 L Hct 33.0 L MCV 98.2 H MCH 33.9 H MCHC 34.5 RDW Std Deviation 46.5 H RDW Coeff of Justine 12.9 Plt Count 126 L MPV 9.8 Immature Gran % (Auto) 1.100 H Neut % (Auto) 88.3 H Lymph % (Auto) 7.1 L [place] % (Auto) 3.3 Eos % (Auto) 0.0 Baso % (Auto) 0.2 Absolute Neuts (auto) 4.6 Absolute Lymphs (auto) 0.37 L Nucleated RBC % 0 Differential Comment SCANNED PT INR APTT > 250.0 H* Sodium Potassium Chloride Carbon Dioxide Anion Gap BUN Creatinine Estim Creat Clear Calc Est GFR (MDRD) Af Amer Est GFR (MDRD) Non-Af BUN/Creatinine Ratio Glucose Lactic Acid Calcium Total Bilirubin AST ALT Alkaline Phosphatase Lactate Dehydrogenase Troponin I 0.084 H B-Natriuretic Peptide Total Protein Albumin Globulin Albumin/Globulin Ratio Procalcitonin Urine Color Urine Clarity Urine pH Ur Specific [place] Urine Protein Urine Glucose (UA) Urine Ketones Urine Occult Blood Urine Nitrite Urine Bilirubin Urine Urobilinogen Ur Leukocyte Esterase Urine RBC Urine WBC Ur Squamous Epith Cells Urine Bacteria Urine Mucus 10/18/20 05:00 WBC RBC Hgb Hct MCV MCH MCHC RDW Std Deviation RDW Coeff of Justine Plt Count MPV Immature Gran % (Auto) Neut % (Auto) Lymph % (Auto) [place] % (Auto) Eos % (Auto) Baso % (Auto) Absolute Neuts (auto) Absolute Lymphs (auto) Nucleated RBC % Differential Comment PT INR APTT Sodium 142 Potassium 2.9 L Chloride 112 H Carbon Dioxide 20.0 L Anion Gap 10 BUN 38 H Creatinine 0.82 Estim Creat Clear Calc 98.21 Est GFR (MDRD) Af Amer 121 Est GFR (MDRD) Non-Af 100 BUN/Creatinine Ratio 46.1 H Glucose 124 H Lactic Acid Calcium 6.6 L Total Bilirubin 0.50 AST 27 ALT 20 Alkaline Phosphatase 64 Lactate Dehydrogenase Troponin I B-Natriuretic Peptide Total Protein 5.0 L Albumin 2.0 L Globulin 3.0 Albumin/Globulin Ratio 0.7 L Procalcitonin Urine Color Urine Clarity Urine pH Ur Specific [place] Urine Protein Urine Glucose (UA) Urine Ketones Urine Occult Blood Urine Nitrite Urine Bilirubin Urine Urobilinogen Ur Leukocyte Esterase Urine RBC Urine WBC Ur Squamous Epith Cells Urine Bacteria Urine Mucus - Other Studies Radiology: [] reviewed Other Studies: [] Route of nutrition/ use of supplements: [] Nutritional Intake: [] IV Site: [] Calderon Catheter: [] - Physical Exam General: Alert, Oriented x3, Cooperative, No apparent distress HEENT: Atraumatic, PERRLA, EOMI Neck: Supple, No Nodes Lungs: Diminished Cardiovascular: Regular rate, Regular Rhythm Abdomen: Soft, Non Tender, Non-Distended Extremities: No edema Skin: No rashes IV Site: Peripheral, without redness Musculoskeletal: No Tenderness to Palpation of Joints or Extremities Neurological: Cranial nerves II-XII grossly intact - Assessment/Plan Antibiotics: [] Assessment/Plan: [] Active and Suspected Problems Pulmonary embolism (Acute) COVID-19 (Acute) Respiratory failure with hypoxia (Acute) Acute kidney injury (Acute) covid with PEs and hypoxia - sx started 3 weeks ago, so will stop remdesivir. On hep gtt, dex. Will change dex to po. Will follow, thank you
[2020-10-18] MEDS: HEPARIN/D5w 25,000 UNITS 25,000 UNITS/250 ML IV.SOLN. 14 UNITS IV (11:05)
[2020-10-18 11:30] LABS: Partial Thromboplast Time 66.9 Seconds (24.1-36.2)
--- NOTE | 2020-10-18 11:45 | CASEMGMT ---
RN CM Assessment Note Introduced role of CM to patient via phone to room. Demographics, PCP verified. Pt is on airvo, but states he is able to converse. Pt states he is independent at home, no care needs prior to admission. Pt drives, and has assist with getting groceries to his home. -pt is able to isolate @ home. COVID TESTING: Positive covid test @ PCP office Presentation: fever, malaise, known covid positive Diagnosis: COVID positive PCP: Dr. Hwang Specialists: air quality instrument specialist for macular degeneration and Arthritis Specialist- [facility] Insurance: MMO Preferred Pharmacy: [facility] Prescription Benefit: yes LNOK: Friend Adrianna Burgess, Brother- Dr. Steven Santa ADV DIR: none Living Arrangements: Lives independently in own home. States he has steps up to bedrooms, no difficulty with stairs. Tranportation: drives DME: cpap only. If home oxygen is needed, [facility] providers are [facility], [facility]. HHC: none SNF: none Patient DC Goals: home on discharge DC Plan: anticipate home on discharge. Recommend home oxygen testing at rest and with activity. CM available for discharge planning coordination. Contact CM for any concerns/needs that may arise. Eddie WISE RN ACM
[2020-10-18] MEDS: Potassium Chloride 10mEq/100mL 10 MEQ/100 ML IV.SOLN. 50 MEQ IV BOLUS ×2 (12:49→14:58)
--- NOTE | 2020-10-18 14:24 | CASEMGMT ---
SW spoke w/pt about LW/POA forms, if he has thought about completing them. Pt states would want to speak w/his brother about it. SW offered to have RN bring in the papers for him to look at if he would like, pt states to wait a day or two. SW explained can check back with him another day and if he would like the information, can have RN bring it in to him. SW explained he can also come in after his hospital stay to complete the forms if he would like. Pt states understanding. SW will continue to follow and will have RN bring the POA/LW forms to the pt should he want them in the next couple of days. BARON Pro
--- NOTE | 2020-10-18 17:10 | PN_ITS ---
Patient Problems: Active and Suspected Problems Pulmonary embolism (Acute) COVID-19 (Acute) Respiratory failure with hypoxia (Acute) Acute kidney injury (Acute) Subjective: Patient was seen and examined today in ICU, he remains on high flow oxygen at this time, patient states he began feeling sick about 3 weeks ago when he had diarrhea, patient states that he was checked last week and found to have COVID- 19, states that over the last few days he has been progressively getting more short of breath. Patient was seen by infectious diseases today who did not feel he would benefit from remdesivir, patient remains on dexamethasone and is on a heparin drip due to pulmonary emboli. I talked briefly with pulmonology and infectious diseases about his care. - Physical Exam Vitals/I&O's: Vital Signs Temp Pulse Resp BP Pulse Ox 97.0 F L 49 L 20 H 126/73 H 97 10/18/20 12:00 10/18/20 15:00 10/18/20 13:27 10/18/20 15:00 10/18/20 15:00 Oxygen Flow Rate (L/min) 60 Oxygen Delivery Method Airvo Weight: 128.3 kg Body Mass Index (BMI) 38.6 Intake and Output for Last 24 Hours 10/16/20 10/17/20 10/18/20 23:59 23:59 23:59 Intake Total 1150 / 1150 1648.74 / 1648.74 Output Total 150 / 450 1100 / 1100 Balance 1000 / 700 548.74 / 548.74 General: Alert, Oriented x3, Cooperative, No apparent distress, Well developed, Well nourished HEENT: Atraumatic, PERRLA, EOMI, Normocephalic Oral: Moist Mucosa Neck: Supple, No JVD, Trachea Midline, Thyroid Normal Size and Texture Lungs: Clear to auscultation, No rhonchi, No wheeze, Diminished Cardiovascular: Regular rate, Regular Rhythm, Normal S1, Normal S2, No murmurs, PMI Normal, No rub noted, No Gallop Abdomen: Bowel Sounds Present, Soft, Non Tender, Non-Distended Extremities: No clubbing, No cyanosis, No edema, Capillary Refill Less than 3 Seconds Skin: No rashes, No breakdown Musculoskeletal: No Tenderness to Palpation of Joints or Extremities Neurological: Cranial nerves II-XII grossly intact, Neuro grossly intact, Sensory exam intact to light touch and pain, Coordination normal Psych/Mental Status: Normal Affect, Appropriate, Alert and oriented to time, place, person, mood and affect Laboratory Results 10/17/20 17:40: WBC 8.9, RBC 4.24 L, Hgb 14.1, Hct 41.5, MCV 97.9 H, MCH 33.3 H, MCHC 34.0, RDW Std Deviation 46.2 H, RDW Coeff of Justine 13.2, Plt Count 141 L, MPV 10.2, Immature Gran % (Auto) 0.900, Neut % (Auto) 87.3 H, Lymph % (Auto) 6.2 L, [place] % (Auto) 5.2, Eos % (Auto) 0.2, Baso % (Auto) 0.2, Absolute Neuts (auto) 7.8 H, Absolute Lymphs (auto) 0.55 L, Nucleated RBC % 0, Differential Comment SCANNED 10/17/20 17:40: Sodium 134 L, Potassium 4.0, Chloride 100, Carbon Dioxide 22.0, Anion Gap 12, BUN 57 H, Creatinine 1.62 H, Estim Creat Clear Calc 49.71, Est GFR (MDRD) Af Amer 56 L, Est GFR (MDRD) Non-Af 46 L, BUN/Creatinine Ratio 35.2 H, Glucose 149 H, Calcium 8.8, Total Bilirubin 1.10 H, AST 52 H, ALT 28, Alkaline Phosphatase 89, Total Protein 7.1, Albumin 2.9 L, Globulin 4.2, Albumin/Globulin Ratio 0.7 L 10/17/20 17:40: Lactic Acid 3.5 H* 10/17/20 17:40: PT 14.9, INR 1.2 10/17/20 17:40: Troponin I 0.100 H 10/17/20 17:40: APTT 36.6 H 10/17/20 17:40: B-Natriuretic Peptide 98.4 10/17/20 17:40: Lactate Dehydrogenase 651 H 10/17/20 17:40: Procalcitonin 0.24 H 10/17/20 21:30: Troponin I 0.096 H 10/17/20 21:30: Lactic Acid 2.1 H* 10/17/20 21:50: Urine Color Yellow, Urine Clarity Clear, Urine pH 6.5, Ur Specific [place] 1.010, Urine Protein 15 H, Urine Glucose (UA) Normal, Urine Ketones Negative, Urine Occult Blood Negative, Urine Nitrite Negative, Urine Bilirubin Negative, Urine Urobilinogen Normal, Ur Leukocyte Esterase Negative, Urine RBC 0 SEEN, Urine WBC 0 SEEN, Ur Squamous Epith Cells 0 SEEN, Urine Bacteria 1+, Urine Mucus 0 SEEN 10/18/20 00:05: Troponin I 0.084 H 10/18/20 02:20: APTT > 250.0 H* 10/18/20 05:00: WBC 5.2, RBC 3.36 L, Hgb 11.4 L, Hct 33.0 L, MCV 98.2 H, MCH 33.9 H, MCHC 34.5, RDW Std Deviation 46.5 H, RDW Coeff of Justine 12.9, Plt Count 126 L, MPV 9.8, Immature Gran % (Auto) 1.100 H, Neut % (Auto) 88.3 H, Lymph % (Auto) 7.1 L, [place] % (Auto) 3.3, Eos % (Auto) 0.0, Baso % (Auto) 0.2, Absolute Neuts (auto) 4.6, Absolute Lymphs (auto) 0.37 L, Nucleated RBC % 0, Differential Comment SCANNED 10/18/20 05:00: Sodium 142, Potassium 2.9 L, Chloride 112 H, Carbon Dioxide 20.0 L, Anion Gap 10, BUN 38 H, Creatinine 0.82, Estim Creat Clear Calc 98.21, Est GFR (MDRD) Af Amer 121, Est GFR (MDRD) Non-Af 100, BUN/Creatinine Ratio 46.1 H, Glucose 124 H, Calcium 6.6 L, Total Bilirubin 0.50, AST 27, ALT 20, Alkaline Phosphatase 64, Total Protein 5.0 L, Albumin 2.0 L, Globulin 3.0, Albumin/Globulin Ratio 0.7 L 10/18/20 10:55: APTT 66.9 H Current Medications Acetaminophen (Acetaminophen 325 Mg Tablet) 650 mg PO Q6H PRN PRN PRN Reason: Pain Score 1-10/Temp > 100.7 F Albuterol Sulfate (Albuterol Ih 8.5 Gm (Proair) Inhaler (200 Puffs)) 2 puff INHALATION Q4H PRN PRN PRN Reason: Shortness of breath, wheezing Amlodipine Besylate (Amlodipine 10 Mg Tablet) 10 mg PO QHS [facility] Last Admin: 10/18/20 00:09 Dose: 10 mg Documented by: Aspirin (Aspirin E.C. 81 Mg Tablet) 81 mg PO DAILY [facility] Last Admin: 10/18/20 10:46 Dose: 81 mg Documented by: Colestipol HCl (Colestipol Hcl 1 Gm Tablet) 1 gm PO QHS [facility] Last Admin: 10/18/20 05:28 Dose: Not Given Documented by: Dexamethasone (Dexamethasone 4 Mg Tablet) 6 mg PO DAILY [facility] Stop: 10/26/20 10:01 Escitalopram Oxalate (Escitalopram Oxalate 20 Mg Tablet) 20 mg PO DAILY [facility] Last Admin: 10/18/20 10:46 Dose: 20 mg Documented by: Heparin Sodium/Dextrose () 25,000 units in 250 mls @ 17 mls/hr IV .[id number] [facility]; Protocol Last Titration: 10/18/20 14:00 Dose: 1,400 units/hr, 14 mls/hr Documented by: Ondansetron HCl (Ondansetron 4 Mg/2 Ml Vial) 4 mg IV Q8H PRN PRN PRN Reason: NAUSEA/VOMITING Senna/Docusate Sodium (Senna/Docusate Sodium 1 Tablet) 2 tablet PO BID PRN PRN PRN Reason: Constipation Medical Necessity - Tobacco Use Smoking Status: Former smoker Tobacco Use: Cigarettes, Cigars Assessment/Plan All Active Problems Pulmonary embolism (Acute) COVID-19 (Acute) Respiratory failure with hypoxia (Acute) Acute kidney injury (Acute) #1 acute hypoxic respiratory failure secondary to COVID-19 pneumonia and pulmonary emboli-pulmonary medicine is participating in his care, continue to monitor pulse ox. #2 COVID-19 pneumonia-patient will remain on dexamethasone #3 essential hypertension #4 acute kidney injury-resolved at this time #5 elevated troponin-secondary to respiratory failure #6 hypokalemia-potassium replacement was given #7 hyperlipidemia #8 chronic depression Inpatient E&M: [id number] [facility] Hosp L2
[2020-10-18 18:24] LABS: Partial Thromboplast Time 63.2 Seconds (24.1-36.2)
--- NOTE | 2020-10-18 22:40 | CPS ---
PT states does not want to wear Home PAP.
[2020-10-19] VITALS (28 sets, daily range): BP systolic 107–151; BP diastolic 48–87; PULSE 38–73; RESP 14–24; TEMP 36.1–36.7; O2SAT 6–97
[2020-10-19] MEDS: HEPARIN/D5w 25,000 UNITS 25,000 UNITS/250 ML IV.SOLN. 14 UNITS IV (03:00)
[2020-10-19 06:55] LABS: Absolute Lymphocyte Count 0.71 X10^3/uL (0.83-4.51); Basophil# 0.03 X10^3/uL; Basophil% 0.3 % (0-1); Hematocrit 39.8 % (40-54); Hemoglobin 13.5 g/dL (13.0-16.5); Lymphocyte # 0.71 X10^3/ul (4.0); Lymphocyte % 6.1 % (19-41); Mean Corp Hgb Conc 33.9 g/dL (32-36); Mean Corpuscular Hgb 33.8 pg (27.0-32.0); Mean Corpuscular Volume 99.7 fL (80-94); Mean Platelet Vol. 9.9 fl (6.2-12.0); Monocyte# 0.76 X10^3/uL; Monocyte% 6.5 % (0-10); NRBC Flagged by Analyzer 0 % (0-5); Neutrophil # 10.02 X10^3/uL (2.7-7.7); Neutrophil % 85.7 % (47-70); Platelet Count 185 K/mm3 (150-450); RBC Distribution Width CV 13.2 % (11.6-14.6); Red Blood Count 3.99 M/mm3 (4.6-6.2); White Blood Count 11.7 K/mm3 (4.4-11.0)
[2020-10-19 07:14] LABS: ALB/GLOB Ratio 0.7 RATIO (0.9-2.4); AST(SGOT) 24 U/L (15-37); Alanine Aminotransfer ALT/SGPT 26 U/L (16-61); Albumin, Serum 2.7 g/dL (3.2-5.0); Alkaline Phosphatase 87 U/L (45-117); Anion Gap 7 (5-15); BUN 38 mg/dL (7-18); BUN/Creat Ratio 39.9 RATIO (10-20); Calcium,Total 8.5 mg/dL (8.5-10.1); Chloride 111 mmol/L (98-107); Creatinine, Serum 0.95 mg/dL (0.70-1.30); EST Glomerular Filtration Rate 85 mL/min (>60); Est Glom Filt Rate - Afr Amer 103 mL/min (>60); Estimated Creatinine Clearance 84.77 ml/min; Globulin 3.7 g/dL (2.2-4.2); Glucose 147 mg/dL (74-106); Potassium 4.1 mmol/L (3.5-5.1); Protein, Total 6.4 g/dL (6.4-8.2); Sodium Level 141 mmol/L (136-145)
--- NOTE | 2020-10-19 08:22 | PCM.PN.INT ---
Subjective: Patient did well overnight. No acute issues were reported. Patient has remained on Airvo, but demands for oxygen have been decreasing. No bleeding complications have been reported. Patient did have a bowel movement that was reported as brown with no melena. Patient is not reporting any abdominal pain. General: Alert, Oriented x3, Cooperative, No apparent distress, Well developed, Well nourished, - - Morbidly obese. Speaking in full sentences. HEENT: Atraumatic, PERRLA, EOMI, Normocephalic, - - No scleral icterus or injection Oral: Moist Mucosa, No Gingival or Mucosal Lesions/ Ulcerations, - - Crowded posterior pharynx Neck: Supple, No JVD, No Nodes, Trachea Midline Lungs: No rhonchi, No wheeze, No rales, Diminished Cardiovascular: Normal S1, Normal S2, No murmurs, Bradycardic, No rub noted, No Gallop Abdomen: Bowel Sounds Present, Soft, Non Tender, Non-Distended, Obese Extremities: No clubbing, No cyanosis, Edema - Trace lower extremity Skin: - - No change compared to previous Musculoskeletal: No Tenderness to Palpation of Joints or Extremities Lymphatic: No Cervical, Supraclavicular, or Inguinal Adenopathy Neurological: Cranial nerves II-XII grossly intact, Neuro grossly intact, Motor Exam 5/5 strength throughout Psych/Mental Status: Alert and oriented to time, place, person, mood and affect Vital Signs Temp Pulse Resp BP Pulse Ox 36.4 C L 42 L 19 H 144/76 H 91 10/19/20 06:00 10/19/20 07:00 10/19/20 07:00 10/19/20 07:00 10/19/20 07:15 Oxygen Flow Rate (L/min) 6 Oxygen Delivery Method Nasal Cannula Weight: 128.3 kg Body Mass Index (BMI) 38.6 Intake and Output for Last 24 Hours 10/17/20 10/18/20 10/19/20 23:59 23:59 23:59 Intake Total 1150 / 1150 1987.74 / 1987.74 542 / 542 Output Total 150 / 450 1275 / 1275 450 / 450 Balance 1000 / 700 713.74 / 713.74 92 / 92 Labs (Last 48 Hours) 10/17/20 10/17/20 10/17/20 17:40 17:40 17:40 WBC 8.9 RBC 4.24 L Hgb 14.1 Hct 41.5 MCV 97.9 H MCH 33.3 H MCHC 34.0 RDW Std Deviation 46.2 H RDW Coeff of Justine 13.2 Plt Count 141 L MPV 10.2 Immature Gran % (Auto) 0.900 Neut % (Auto) 87.3 H Lymph % (Auto) 6.2 L [place] % (Auto) 5.2 Eos % (Auto) 0.2 Baso % (Auto) 0.2 Absolute Neuts (auto) 7.8 H Absolute Lymphs (auto) 0.55 L Nucleated RBC % 0 Differential Comment SCANNED PT INR APTT Sodium 134 L Potassium 4.0 Chloride 100 Carbon Dioxide 22.0 Anion Gap 12 BUN 57 H Creatinine 1.62 H Estim Creat Clear Calc 49.71 Est GFR (MDRD) Af Amer 56 L Est GFR (MDRD) Non-Af 46 L BUN/Creatinine Ratio 35.2 H Glucose 149 H Lactic Acid 3.5 H* Calcium 8.8 Total Bilirubin 1.10 H AST 52 H ALT 28 Alkaline Phosphatase 89 Lactate Dehydrogenase Troponin I B-Natriuretic Peptide Total Protein 7.1 Albumin 2.9 L Globulin 4.2 Albumin/Globulin Ratio 0.7 L Procalcitonin Urine Color Urine Clarity Urine pH Ur Specific [place] Urine Protein Urine Glucose (UA) Urine Ketones Urine Occult Blood Urine Nitrite Urine Bilirubin Urine Urobilinogen Ur Leukocyte Esterase Urine RBC Urine WBC Ur Squamous Epith Cells Urine Bacteria Urine Mucus 10/17/20 10/17/20 10/17/20 17:40 17:40 17:40 WBC RBC Hgb Hct MCV MCH MCHC RDW Std Deviation RDW Coeff of Justine Plt Count MPV Immature Gran % (Auto) Neut % (Auto) Lymph % (Auto) [place] % (Auto) Eos % (Auto) Baso % (Auto) Absolute Neuts (auto) Absolute Lymphs (auto) Nucleated RBC % Differential Comment PT 14.9 INR 1.2 APTT 36.6 H Sodium Potassium Chloride Carbon Dioxide Anion Gap BUN Creatinine Estim Creat Clear Calc Est GFR (MDRD) Af Amer Est GFR (MDRD) Non-Af BUN/Creatinine Ratio Glucose Lactic Acid Calcium Total Bilirubin AST ALT Alkaline Phosphatase Lactate Dehydrogenase Troponin I 0.100 H B-Natriuretic Peptide Total Protein Albumin Globulin Albumin/Globulin Ratio Procalcitonin Urine Color Urine Clarity Urine pH Ur Specific [place] Urine Protein Urine Glucose (UA) Urine Ketones Urine Occult Blood Urine Nitrite Urine Bilirubin Urine Urobilinogen Ur Leukocyte Esterase Urine RBC Urine WBC Ur Squamous Epith Cells Urine Bacteria Urine Mucus 10/17/20 10/17/20 10/17/20 17:40 17:40 17:40 WBC RBC Hgb Hct MCV MCH MCHC RDW Std Deviation RDW Coeff of Justine Plt Count MPV Immature Gran % (Auto) Neut % (Auto) Lymph % (Auto) [place] % (Auto) Eos % (Auto) Baso % (Auto) Absolute Neuts (auto) Absolute Lymphs (auto) Nucleated RBC % Differential Comment PT INR APTT Sodium Potassium Chloride Carbon Dioxide Anion Gap BUN Creatinine Estim Creat Clear Calc Est GFR (MDRD) Af Amer Est GFR (MDRD) Non-Af BUN/Creatinine Ratio Glucose Lactic Acid Calcium Total Bilirubin AST ALT Alkaline Phosphatase Lactate Dehydrogenase 651 H Troponin I B-Natriuretic Peptide 98.4 Total Protein Albumin Globulin Albumin/Globulin Ratio Procalcitonin 0.24 H Urine Color Urine Clarity Urine pH Ur Specific [place] Urine Protein Urine Glucose (UA) Urine Ketones Urine Occult Blood Urine Nitrite Urine Bilirubin Urine Urobilinogen Ur Leukocyte Esterase Urine RBC Urine WBC Ur Squamous Epith Cells Urine Bacteria Urine Mucus 10/17/20 10/17/20 10/17/20 21:30 21:30 21:50 WBC RBC Hgb Hct MCV MCH MCHC RDW Std Deviation RDW Coeff of Justine Plt Count MPV Immature Gran % (Auto) Neut % (Auto) Lymph % (Auto) [place] % (Auto) Eos % (Auto) Baso % (Auto) Absolute Neuts (auto) Absolute Lymphs (auto) Nucleated RBC % Differential Comment PT INR APTT Sodium Potassium Chloride Carbon Dioxide Anion Gap BUN Creatinine Estim Creat Clear Calc Est GFR (MDRD) Af Amer Est GFR (MDRD) Non-Af BUN/Creatinine Ratio Glucose Lactic Acid 2.1 H* Calcium Total Bilirubin AST ALT Alkaline Phosphatase Lactate Dehydrogenase Troponin I 0.096 H B-Natriuretic Peptide Total Protein Albumin Globulin Albumin/Globulin Ratio Procalcitonin Urine Color Yellow Urine Clarity Clear Urine pH 6.5 Ur Specific [place] 1.010 Urine Protein 15 H Urine Glucose (UA) Normal Urine Ketones Negative Urine Occult Blood Negative Urine Nitrite Negative Urine Bilirubin Negative Urine Urobilinogen Normal Ur Leukocyte Esterase Negative Urine RBC 0 SEEN Urine WBC 0 SEEN Ur Squamous Epith Cells 0 SEEN Urine Bacteria 1+ Urine Mucus 0 SEEN 10/18/20 10/18/20 10/18/20 00:05 02:20 05:00 WBC 5.2 RBC 3.36 L Hgb 11.4 L Hct 33.0 L MCV 98.2 H MCH 33.9 H MCHC 34.5 RDW Std Deviation 46.5 H RDW Coeff of Justine 12.9 Plt Count 126 L MPV 9.8 Immature Gran % (Auto) 1.100 H Neut % (Auto) 88.3 H Lymph % (Auto) 7.1 L [place] % (Auto) 3.3 Eos % (Auto) 0.0 Baso % (Auto) 0.2 Absolute Neuts (auto) 4.6 Absolute Lymphs (auto) 0.37 L Nucleated RBC % 0 Differential Comment SCANNED PT INR APTT > 250.0 H* Sodium Potassium Chloride Carbon Dioxide Anion Gap BUN Creatinine Estim Creat Clear Calc Est GFR (MDRD) Af Amer Est GFR (MDRD) Non-Af BUN/Creatinine Ratio Glucose Lactic Acid Calcium Total Bilirubin AST ALT Alkaline Phosphatase Lactate Dehydrogenase Troponin I 0.084 H B-Natriuretic Peptide Total Protein Albumin Globulin Albumin/Globulin Ratio Procalcitonin Urine Color Urine Clarity Urine pH Ur Specific [place] Urine Protein Urine Glucose (UA) Urine Ketones Urine Occult Blood Urine Nitrite Urine Bilirubin Urine Urobilinogen Ur Leukocyte Esterase Urine RBC Urine WBC Ur Squamous Epith Cells Urine Bacteria Urine Mucus 10/18/20 10/18/20 10/18/20 05:00 10:55 17:30 WBC RBC Hgb Hct MCV MCH MCHC RDW Std Deviation RDW Coeff of Justine Plt Count MPV Immature Gran % (Auto) Neut % (Auto) Lymph % (Auto) [place] % (Auto) Eos % (Auto) Baso % (Auto) Absolute Neuts (auto) Absolute Lymphs (auto) Nucleated RBC % Differential Comment PT INR APTT 66.9 H 63.2 H Sodium 142 Potassium 2.9 L Chloride 112 H Carbon Dioxide 20.0 L Anion Gap 10 BUN 38 H Creatinine 0.82 Estim Creat Clear Calc 98.21 Est GFR (MDRD) Af Amer 121 Est GFR (MDRD) Non-Af 100 BUN/Creatinine Ratio 46.1 H Glucose 124 H Lactic Acid Calcium 6.6 L Total Bilirubin 0.50 AST 27 ALT 20 Alkaline Phosphatase 64 Lactate Dehydrogenase Troponin I B-Natriuretic Peptide Total Protein 5.0 L Albumin 2.0 L Globulin 3.0 Albumin/Globulin Ratio 0.7 L Procalcitonin Urine Color Urine Clarity Urine pH Ur Specific [place] Urine Protein Urine Glucose (UA) Urine Ketones Urine Occult Blood Urine Nitrite Urine Bilirubin Urine Urobilinogen Ur Leukocyte Esterase Urine RBC Urine WBC Ur Squamous Epith Cells Urine Bacteria Urine Mucus 10/18/20 10/19/20 10/19/20 23:35 01:30 05:45 WBC 11.7 H RBC 3.99 L Hgb 13.5 Hct 39.8 L MCV 99.7 H MCH 33.8 H MCHC 33.9 RDW Std Deviation 48.0 H RDW Coeff of Justine 13.2 Plt Count 185 MPV 9.9 Immature Gran % (Auto) 1.400 H Neut % (Auto) 85.7 H Lymph % (Auto) 6.1 L [place] % (Auto) 6.5 Eos % (Auto) 0.0 Baso % (Auto) 0.3 Absolute Neuts (auto) 10.0 H Absolute Lymphs (auto) 0.71 L Nucleated RBC % 0 Differential Comment PT INR APTT Cancelled 74.0 H Sodium Potassium Chloride Carbon Dioxide Anion Gap BUN Creatinine Estim Creat Clear Calc Est GFR (MDRD) Af Amer Est GFR (MDRD) Non-Af BUN/Creatinine Ratio Glucose Lactic Acid Calcium Total Bilirubin AST ALT Alkaline Phosphatase Lactate Dehydrogenase Troponin I B-Natriuretic Peptide Total Protein Albumin Globulin Albumin/Globulin Ratio Procalcitonin Urine Color Urine Clarity Urine pH Ur Specific [place] Urine Protein Urine Glucose (UA) Urine Ketones Urine Occult Blood Urine Nitrite Urine Bilirubin Urine Urobilinogen Ur Leukocyte Esterase Urine RBC Urine WBC Ur Squamous Epith Cells Urine Bacteria Urine Mucus 10/19/20 05:45 WBC RBC Hgb Hct MCV MCH MCHC RDW Std Deviation RDW Coeff of Justine Plt Count MPV Immature Gran % (Auto) Neut % (Auto) Lymph % (Auto) [place] % (Auto) Eos % (Auto) Baso % (Auto) Absolute Neuts (auto) Absolute Lymphs (auto) Nucleated RBC % Differential Comment PT INR APTT Sodium 141 Potassium 4.1 Chloride 111 H Carbon Dioxide 23.0 Anion Gap 7 BUN 38 H Creatinine 0.95 Estim Creat Clear Calc 84.77 Est GFR (MDRD) Af Amer 103 Est GFR (MDRD) Non-Af 85 BUN/Creatinine Ratio 39.9 H Glucose 147 H Lactic Acid Calcium 8.5 Total Bilirubin 0.60 AST 24 ALT 26 Alkaline Phosphatase 87 Lactate Dehydrogenase Troponin I B-Natriuretic Peptide Total Protein 6.4 Albumin 2.7 L Globulin 3.7 Albumin/Globulin Ratio 0.7 L Procalcitonin Urine Color Urine Clarity Urine pH Ur Specific [place] Urine Protein Urine Glucose (UA) Urine Ketones Urine Occult Blood Urine Nitrite Urine Bilirubin Urine Urobilinogen Ur Leukocyte Esterase Urine RBC Urine WBC Ur Squamous Epith Cells Urine Bacteria Urine Mucus Medical Necessity - Tobacco Use Smoking Status: Former smoker Tobacco Use: Cigarettes, Cigars Assessment/Plan All Active Problems Pulmonary embolism (Acute) COVID-19 (Acute) Respiratory failure with hypoxia (Acute) Acute kidney injury (Acute) RECOMMENDATIONS: 1. Incision from heparin to Eliquis 2. Increase activity as tolerated 3. Wean oxygen as tolerated 4. Continue BiPAP with sleep, supplemental oxygen as needed to keep saturations greater than 90% 5. Monitor for bleeding complications 6. Potential transfer from the intensive care unit later today IMPRESSIONS: 1. Acute hypoxic respiratory failure secondary to acute bilateral PE/COVID-19 pneumonia Patient likely with PE secondary to COVID-19. Patient did have some emphysematous changes on CT scan of the chest, so COPD would be a consideration. Patient has been responding to therapy appropriately. We will transition over to a 10 a inhibitor as patient has not shown any signs of bleeding after 24 hours of heparin. Anticipate some improvement in oxygenation secondary to resolution of pulmonary emboli, but supplemental oxygen may still be necessary secondary to COVID-19. 2. Elevated troponin Likely combination of global hypoxia and acute kidney injury. Continue to monitor with telemetry. Would not recommend aggressive interventions at this time. Patient would benefit from an echocardiogram to evaluate for pulmonary hypertension. Okay to continue with Norvasc and Coreg from my perspective. Would hold losartan given risk of complicating acute kidney injury. 3. Acute kidney injury Suspected ATN secondary to global hypoxia. Continue to support blood pressure and monitor BMP on a daily basis. No indication for a nephrology consult for renal replacement therapy from my perspective. We will have to watch patient's fluid status closely given problem #1. 4. Morbid obesity/hypertension/depression/protracted presentation Complicates care, management, recovery and prognosis. Okay to continue with baseline medications with modifications listed above. Inpatient E&M: [id number] [facility] Hosp L3
[2020-10-19] MEDS: dexAMETHasone 4 MG Tablet 6 MG PO (10:26)
[2020-10-19] MEDS: Escitalopram Oxalate 20 MG Tablet PO (10:26)
[2020-10-19] MEDS: Aspirin E.C. 81 MG Tablet PO (10:26)
[2020-10-19] MEDS: APIXABAN 5 MG TABLET 10 MG PO ×2 (10:26→20:37)
--- NOTE | 2020-10-19 13:58 | PCM.PN.ID ---
Patient Problems: Active and Suspected Problems Pulmonary embolism (Acute) COVID-19 (Acute) Respiratory failure with hypoxia (Acute) Acute kidney injury (Acute) Subjective: Feeling a little better today, no fever, no n/v/d. - Physical Exam Vitals/I&O's: Vital Signs Temp Pulse Resp BP Pulse Ox 97.0 F L 49 L 18 139/65 H 96 10/19/20 12:00 10/19/20 12:29 10/19/20 12:00 10/19/20 12:00 10/19/20 12:00 Oxygen Flow Rate (L/min) 4 Oxygen Delivery Method Nasal Cannula Weight: 128.3 kg Body Mass Index (BMI) 38.6 Intake and Output for Last 24 Hours 10/17/20 10/18/20 10/19/20 23:59 23:59 23:59 Intake Total 1150 / 1150 1988.74 / 1988.74 661 / 661 Output Total 150 / 450 1275 / 1275 750 / 750 Balance 1000 / 700 713.74 / 713.74 -89 / -89 General: Alert, Cooperative, No apparent distress Lungs: Diminished Cardiovascular: Regular rate, Regular Rhythm Abdomen: Soft, Non Tender, Non-Distended Skin: No rashes Microbiology Past 72 Hours 10/17/20 21:50 Urine, Clean Catch Urine Culture - Preliminary Culture exhibits no growth. Laboratory Results 10/18/20 17:30: APTT 63.2 H 10/18/20 23:35: APTT Cancelled 10/19/20 01:30: APTT 74.0 H 10/19/20 05:45: WBC 11.7 H, RBC 3.99 L, Hgb 13.5, Hct 39.8 L, MCV 99.7 H, MCH 33.8 H, MCHC 33.9, RDW Std Deviation 48.0 H, RDW Coeff of Justine 13.2, Plt Count 185, MPV 9.9, Immature Gran % (Auto) 1.400 H, Neut % (Auto) 85.7 H, Lymph % (Auto) 6.1 L, [place] % (Auto) 6.5, Eos % (Auto) 0.0, Baso % (Auto) 0.3, Absolute Neuts (auto) 10.0 H, Absolute Lymphs (auto) 0.71 L, Nucleated RBC % 0 10/19/20 05:45: Sodium 141, Potassium 4.1, Chloride 111 H, Carbon Dioxide 23.0, Anion Gap 7, BUN 38 H, Creatinine 0.95, Estim Creat Clear Calc 84.77, Est GFR (MDRD) Af Amer 103, Est GFR (MDRD) Non-Af 85, BUN/Creatinine Ratio 39.9 H, Glucose 147 H, Calcium 8.5, Total Bilirubin 0.60, AST 24, ALT 26, Alkaline Phosphatase 87, Total Protein 6.4, Albumin 2.7 L, Globulin 3.7, Albumin/Globulin Ratio 0.7 L Current Medications Acetaminophen (Acetaminophen 325 Mg Tablet) 650 mg PO Q6H PRN PRN PRN Reason: Pain Score 1-10/Temp > 100.7 F Albuterol Sulfate (Albuterol Ih 8.5 Gm (Proair) Inhaler (200 Puffs)) 2 puff INHALATION Q4H PRN PRN PRN Reason: Shortness of breath, wheezing Amlodipine Besylate (Amlodipine 10 Mg Tablet) 10 mg PO QHS [facility] Last Admin: 10/18/20 20:16 Dose: 10 mg Documented by: Apixaban (Apixaban 5 Mg Tablet) 10 mg PO BID [facility] Last Admin: 10/19/20 10:26 Dose: 10 mg Documented by: Aspirin (Aspirin E.C. 81 Mg Tablet) 81 mg PO DAILY [facility] Last Admin: 10/19/20 10:26 Dose: 81 mg Documented by: Colestipol HCl (Colestipol Hcl 1 Gm Tablet) 1 gm PO QHS [facility] Last Admin: 10/18/20 20:16 Dose: 1 gm Documented by: Dexamethasone (Dexamethasone 4 Mg Tablet) 6 mg PO DAILY [facility] Stop: 10/26/20 10:01 Last Admin: 10/19/20 10:26 Dose: 6 mg Documented by: Escitalopram Oxalate (Escitalopram Oxalate 20 Mg Tablet) 20 mg PO DAILY [facility] Last Admin: 10/19/20 10:26 Dose: 20 mg Documented by: Ondansetron HCl (Ondansetron 4 Mg/2 Ml Vial) 4 mg IV Q8H PRN PRN PRN Reason: NAUSEA/VOMITING Senna/Docusate Sodium (Senna/Docusate Sodium 1 Tablet) 2 tablet PO BID PRN PRN PRN Reason: Constipation Medical Necessity - Tobacco Use Smoking Status: Former smoker Tobacco Use: Cigarettes, Cigars Route of nutrition/ use of supplements: [] Nutritional Intake: [] IV Site: [] Calderon Catheter: [] - Assessment/Plan Antibiotics: [] Assessment/Plan: [] Active and Suspected Problems Pulmonary embolism (Acute) COVID-19 (Acute) Respiratory failure with hypoxia (Acute) Acute kidney injury (Acute) covid with PEs and hypoxia - sx started 3 weeks ago. On eliquis, dex. Dex for 10 days total. Will follow
--- NOTE | 2020-10-19 20:21 | PN_ITS ---
Patient Problems: Active and Suspected Problems Pulmonary embolism (Acute) COVID-19 (Acute) Respiratory failure with hypoxia (Acute) Acute kidney injury (Acute) Subjective: Patient was seen and examined today, he was able to be moved out to [place] [address] today, his oxygen requirements have decreased to 6 L via nasal cannula. Patient denies any chest pain, fevers, or chills. Objective: General: Alert, Oriented x3, Cooperative, No apparent distress, Well developed, Well nourished HEENT: Atraumatic, PERRLA, EOMI, Normocephalic Oral: Moist Mucosa Neck: Supple, No JVD, Trachea Midline, Thyroid Normal Size and Texture Lungs: Clear to auscultation, No rhonchi, No wheeze, Diminished Cardiovascular: Regular rate, Regular Rhythm, Normal S1, Normal S2, No murmurs, PMI Normal, No rub noted, No Gallop Abdomen: Bowel Sounds Present, Soft, Non Tender, Non-Distended Extremities: No clubbing, No cyanosis, No edema, Capillary Refill Less than 3 Seconds Skin: No rashes, No breakdown Musculoskeletal: No Tenderness to Palpation of Joints or Extremities Neurological: Cranial nerves II-XII grossly intact, Neuro grossly intact, Sensory exam intact to light touch and pain, Coordination normal Psych/Mental Status: Normal Affect, Appropriate, Alert and oriented to time, place, person, mood and affect - Physical Exam Vitals/I&O's: Vital Signs Temp Pulse Resp BP Pulse Ox 98.0 F 56 L 20 H 147/79 H 96 10/19/20 18:46 10/19/20 18:46 10/19/20 18:46 10/19/20 18:46 10/19/20 18:46 Oxygen Flow Rate (L/min) 6 Oxygen Delivery Method Nasal Cannula Weight: 128.3 kg Body Mass Index (BMI) 38.6 Intake and Output for Last 24 Hours 10/17/20 10/18/20 10/19/20 23:59 23:59 23:59 Intake Total 1150 / 1150 1987.74 / 1987.74 661 / 661 Output Total 150 / 450 1275 / 1275 750 / 750 Balance 1000 / 700 713.74 / 713.74 -89 / -89 Microbiology Past 72 Hours 10/17/20 21:50 Urine, Clean Catch Urine Culture - Preliminary Culture exhibits no growth. Laboratory Results 10/18/20 23:35: APTT Cancelled 10/19/20 01:30: APTT 74.0 H 10/19/20 05:45: WBC 11.7 H, RBC 3.99 L, Hgb 13.5, Hct 39.8 L, MCV 99.7 H, MCH 33.8 H, MCHC 33.9, RDW Std Deviation 48.0 H, RDW Coeff of Justine 13.2, Plt Count 185, MPV 9.9, Immature Gran % (Auto) 1.400 H, Neut % (Auto) 85.7 H, Lymph % (Auto) 6.1 L, [place] % (Auto) 6.5, Eos % (Auto) 0.0, Baso % (Auto) 0.3, Absolute Neuts (auto) 10.0 H, Absolute Lymphs (auto) 0.71 L, Nucleated RBC % 0 10/19/20 05:45: Sodium 141, Potassium 4.1, Chloride 111 H, Carbon Dioxide 23.0, Anion Gap 7, BUN 38 H, Creatinine 0.95, Estim Creat Clear Calc 84.77, Est GFR (MDRD) Af Amer 103, Est GFR (MDRD) Non-Af 85, BUN/Creatinine Ratio 39.9 H, Glucose 147 H, Calcium 8.5, Total Bilirubin 0.60, AST 24, ALT 26, Alkaline Phosphatase 87, Total Protein 6.4, Albumin 2.7 L, Globulin 3.7, Albumin/Globulin Ratio 0.7 L Current Medications Acetaminophen (Acetaminophen 325 Mg Tablet) 650 mg PO Q6H PRN PRN PRN Reason: Pain Score 1-10/Temp > 100.7 F Albuterol Sulfate (Albuterol Ih 8.5 Gm (Proair) Inhaler (200 Puffs)) 2 puff INHALATION Q4H PRN PRN PRN Reason: Shortness of breath, wheezing Amlodipine Besylate (Amlodipine 10 Mg Tablet) 10 mg PO QHS [facility] Last Admin: 10/18/20 20:16 Dose: 10 mg Documented by: Apixaban (Apixaban 5 Mg Tablet) 10 mg PO BID [facility] Last Admin: 10/19/20 10:26 Dose: 10 mg Documented by: Aspirin (Aspirin E.C. 81 Mg Tablet) 81 mg PO DAILY [facility] Last Admin: 10/19/20 10:26 Dose: 81 mg Documented by: Colestipol HCl (Colestipol Hcl 1 Gm Tablet) 1 gm PO QHS [facility] Last Admin: 10/18/20 20:16 Dose: 1 gm Documented by: Dexamethasone (Dexamethasone 4 Mg Tablet) 6 mg PO DAILY [facility] Stop: 10/26/20 10:01 Last Admin: 10/19/20 10:26 Dose: 6 mg Documented by: Escitalopram Oxalate (Escitalopram Oxalate 20 Mg Tablet) 20 mg PO DAILY [facility] Last Admin: 10/19/20 10:26 Dose: 20 mg Documented by: Ondansetron HCl (Ondansetron 4 Mg/2 Ml Vial) 4 mg IV Q8H PRN PRN PRN Reason: NAUSEA/VOMITING Senna/Docusate Sodium (Senna/Docusate Sodium 1 Tablet) 2 tablet PO BID PRN PRN PRN Reason: Constipation Medical Necessity - Tobacco Use Smoking Status: Former smoker Tobacco Use: Cigarettes, Cigars Assessment/Plan All Active Problems Pulmonary embolism (Acute) COVID-19 (Acute) Respiratory failure with hypoxia (Acute) Acute kidney injury (Acute) #1 acute hypoxic respiratory failure secondary to COVID-19 pneumonia and pulmonary emboli-pulmonary medicine is participating in his care, continue to monitor pulse ox. Patient is currently on Eliquis. #2 COVID-19 pneumonia-patient will remain on dexamethasone #3 essential hypertension #4 acute kidney injury-resolved at this time #5 elevated troponin-secondary to respiratory failure #6 hypokalemia-corrected at this time #7 hyperlipidemia #8 chronic depression Inpatient E&M: 63952 [facility] Hosp L2
[2020-10-19] MEDS: amLODIPine 10 MG Tablet PO (20:36)
[2020-10-20] VITALS (7 sets, daily range): BP systolic 127–143; BP diastolic 69–80; PULSE 50–60; RESP 19–22; TEMP 35.3–36.1; O2SAT 94–98
--- NOTE | 2020-10-20 08:07 | PN_ITS ---
Patient Problems: Active and Suspected Problems Pulmonary embolism (Acute) COVID-19 (Acute) Respiratory failure with hypoxia (Acute) Acute kidney injury (Acute) Subjective: The patient was seen and examined at the bedside this morning. Events from the last 24 hours have been reviewed. The patient is currently afebrile, hemodynam ically stable and maintaining appropriate oxygen saturations on 4 L/min via nasal cannula. The patient remains systemically anticoagulated on Eliquis. He remains on Decadron as well. Objective: The patient's most recent lab work, culture data and imaging studies have all been personally reviewed. CTA chest demonstrated extensive bilateral pulmonary emboli. Blood and urine cultures have demonstrated no growth to date. - Physical Exam Vitals/I&O's: Vital Signs Temp Pulse Resp BP Pulse Ox 95.5 F L 60 20 H 136/80 H 98 10/20/20 03:18 10/20/20 04:51 10/20/20 04:51 10/20/20 03:18 10/20/20 07:08 Oxygen Flow Rate (L/min) 4 Oxygen Delivery Method Nasal Cannula Weight: 288 lb 2.307 oz Body Mass Index (BMI) 38.6 Intake and Output for Last 24 Hours 10/18/20 10/19/20 10/20/20 23:59 23:59 23:59 Intake Total 1988.74 / 1988.74 661 / 901 240 / 240 Output Total 1275 / 1275 750 / 750 Balance 713.74 / 713.74 -89 / 151 240 / 240 General: Alert, Oriented x3, Cooperative, No apparent distress HEENT: Atraumatic, PERRLA, Normocephalic Oral: Moist Mucosa, No Gingival or Mucosal Lesions/ Ulcerations Neck: Supple, No Nodes, Trachea Midline Lungs: No rhonchi, No wheeze, No rales, Diminished Cardiovascular: Regular rate, Regular Rhythm, No murmurs Abdomen: Bowel Sounds Present, Soft, Non Tender, Obese Extremities: No clubbing, No cyanosis, No edema Skin: No breakdown Musculoskeletal: No Tenderness to Palpation of Joints or Extremities Lymphatic: No Cervical, Supraclavicular, or Inguinal Adenopathy Neurological: Cranial nerves II-XII grossly intact, Neuro grossly intact Psych/Mental Status: Alert and oriented to time, place, person, mood and affect Labs (Last 48 Hours) 10/18/20 10/18/20 10/18/20 10:55 17:30 23:35 WBC RBC Hgb Hct MCV MCH MCHC RDW Std Deviation RDW Coeff of Justine Plt Count MPV Immature Gran % (Auto) Neut % (Auto) Lymph % (Auto) [place] % (Auto) Eos % (Auto) Baso % (Auto) Absolute Neuts (auto) Absolute Lymphs (auto) Nucleated RBC % APTT 66.9 H 63.2 H Cancelled Sodium Potassium Chloride Carbon Dioxide Anion Gap BUN Creatinine Estim Creat Clear Calc Est GFR (MDRD) Af Amer Est GFR (MDRD) Non-Af BUN/Creatinine Ratio Glucose Calcium Total Bilirubin AST ALT Alkaline Phosphatase Total Protein Albumin Globulin Albumin/Globulin Ratio 10/19/20 10/19/20 10/19/20 01:30 05:45 05:45 WBC 11.7 H RBC 3.99 L Hgb 13.5 Hct 39.8 L MCV 99.7 H MCH 33.8 H MCHC 33.9 RDW Std Deviation 48.0 H RDW Coeff of Justien 13.2 Plt Count 185 MPV 9.9 Immature Gran % (Auto) 1.400 H Neut % (Auto) 85.7 H Lymph % (Auto) 6.1 L [place] % (Auto) 6.5 Eos % (Auto) 0.0 Baso % (Auto) 0.3 Absolute Neuts (auto) 10.0 H Absolute Lymphs (auto) 0.71 L Nucleated RBC % 0 APTT 74.0 H Sodium 141 Potassium 4.1 Chloride 111 H Carbon Dioxide 23.0 Anion Gap 7 BUN 38 H Creatinine 0.95 Estim Creat Clear Calc 84.77 Est GFR (MDRD) Af Amer 103 Est GFR (MDRD) Non-Af 85 BUN/Creatinine Ratio 39.9 H Glucose 147 H Calcium 8.5 Total Bilirubin 0.60 AST 24 ALT 26 Alkaline Phosphatase 87 Total Protein 6.4 Albumin 2.7 L Globulin 3.7 Albumin/Globulin Ratio 0.7 L Microbiology 10/17/20 18:05 Blood Culture (Wb) - Anticubital Right Blood Culture - Preliminary No growth in 48 hours. 10/17/20 17:40 Blood Culture (Wb) - Anticubital Left Blood Culture - Preliminary No growth in 48 hours. 10/17/20 21:50 Urine, Clean Catch Urine Culture - Preliminary Culture exhibits no growth. Clinical Impression(s) from Imaging Studies Chest CTA 10/17/20 18:31 IMPRESSION: Extensive bilateral PE. Low-density filling defects noted within the distal aspects of both main pulmonary arteries extending into all 5 pulmonary lobes Diffuse interstitial and airspace opacifications in the periphery of both lung morejon consistent with Covid pneumonia. No pleural or pericardial effusions Degenerative bony changes N.B. : The above information has been verbally conveyed by Chucho Garcia MD to Javier Rosales MD, on 10/17/2020 19:13:30 (ET). Electronically Signed: Chucho Garcia MD at 19:14 EST , Service support , ADDENDUM: 10/17/20 1921 IMPRESSION: Extensive bilateral PE. Low-density filling defects noted within the distal aspects of both main pulmonary arteries extending into all 5 pulmonary lobes Diffuse interstitial and airspace opacifications in the periphery of both lung morejon consistent with Covid pneumonia. No pleural or pericardial effusions Degenerative bony changes N.B. : The above information has been verbally conveyed by Chucho Garcia MD to Javier Rosales MD, on 10/17/2020 19:13:30 (ET). Electronically Signed: Chucho Garcia MD at 19:14 EST , Service support , Current Medications Acetaminophen (Acetaminophen 325 Mg Tablet) 650 mg PO Q6H PRN PRN PRN Reason: Pain Score 1-10/Temp > 100.7 F Albuterol Sulfate (Albuterol Ih 8.5 Gm (Proair) Inhaler (200 Puffs)) 2 puff INHALATION Q4H PRN PRN PRN Reason: Shortness of breath, wheezing Amlodipine Besylate (Amlodipine 10 Mg Tablet) 10 mg PO QHS [facility] Last Admin: 10/19/20 20:36 Dose: 10 mg Documented by: Apixaban (Apixaban 5 Mg Tablet) 10 mg PO BID [facility] Last Admin: 10/19/20 20:37 Dose: 10 mg Documented by: Aspirin (Aspirin E.C. 81 Mg Tablet) 81 mg PO DAILY [facility] Last Admin: 10/19/20 10:26 Dose: 81 mg Documented by: Colestipol HCl (Colestipol Hcl 1 Gm Tablet) 1 gm PO QHS [facility] Last Admin: 10/19/20 20:38 Dose: 1 gm Documented by: Dexamethasone (Dexamethasone 4 Mg Tablet) 6 mg PO DAILY [facility] Stop: 10/26/20 10:01 Last Admin: 10/19/20 10:26 Dose: 6 mg Documented by: Escitalopram Oxalate (Escitalopram Oxalate 20 Mg Tablet) 20 mg PO DAILY [facility] Last Admin: 10/19/20 10: Dose: 20 mg Documented by: Ondansetron HCl (Ondansetron 4 Mg/2 Ml Vial) 4 mg IV Q8H PRN PRN PRN Reason: NAUSEA/VOMITING Senna/Docusate Sodium (Senna/Docusate Sodium 1 Tablet) 2 tablet PO BID PRN PRN PRN Reason: Constipation Medical Necessity - Tobacco Use Smoking Status: Former smoker Tobacco Use: Cigarettes, Cigars Assessment/Plan All Active Problems Pulmonary embolism (Acute) COVID-19 (Acute) Respiratory failure with hypoxia (Acute) Acute kidney injury (Acute) RECOMMENDATIONS: 1. Wean supplemental oxygen to maintain saturations at or above 90%. 2. Continue Decadron to complete 10-day treatment course. 3. Continue systemic anticoagulation with Eliquis. 4. Encourage incentive spirometer use and mobilize patient as tolerated. IMPRESSIONS: 1. Acute hypoxic respiratory failure secondary to acute bilateral PE/COVID-19 pneumonia Plan to continue current supportive measures including systemic anticoagulation with Eliquis along with Decadron to complete a 10-day treatment course. Given duration of symptoms, the patient was not felt to be a candidate for remdesivir. Supplemental oxygen will be weaned to maintain oxygen saturations at or above 90%. Encourage incentive spirometer use and mobilize patient as tolerated. 2. Elevated troponin Likely combination of global hypoxia and acute kidney injury. Continue to monitor with telemetry. Would not recommend aggressive interventions at this time. 3. Acute kidney injury Improved. Suspected ATN secondary to global hypoxia. Continue to support blood pressure and monitor BMP on a daily basis. No indication for a nephrology consult for renal replacement therapy from my perspective. 4. Morbid obesity/hypertension/depression/protracted presentation Complicates care, management, recovery and prognosis. Continue home medications as indicated. This note was generated with [employer] software. It may contain incorrect words, spelling, and punctuation that were not noted in checking the note before signing. Inpatient E&M: 40696 Subs Hosp L2
[2020-10-20] MEDS: APIXABAN 5 MG TABLET 10 MG PO ×2 (10:12→20:39)
[2020-10-20] MEDS: Escitalopram Oxalate 20 MG Tablet PO (10:12)
[2020-10-20] MEDS: Aspirin E.C. 81 MG Tablet PO (10:13)
--- NOTE | 2020-10-20 10:17 | CASEMGMT ---
RN gave pt LW/POA forms with rack card to call SW to set up a time to complete forms as an outpatient. BARON Pro
[2020-10-20] MEDS: dexAMETHasone 4 MG Tablet 6 MG PO (12:08)
--- NOTE | 2020-10-20 16:10 | PN_ITS ---
Patient Problems: Active and Suspected Problems Pulmonary embolism (Acute) COVID-19 (Acute) Respiratory failure with hypoxia (Acute) Acute kidney injury (Acute) Subjective: Patient was seen and examined today, he remains on nasal cannula oxygen at 4 L/min. He has no complaints of any fever, chills, or chest pain. Objective: General: Alert, Oriented x3, Cooperative, No apparent distress, Well developed, Well nourished HEENT: Atraumatic, PERRLA, EOMI, Normocephalic Oral: Moist Mucosa Neck: Supple, No JVD, Trachea Midline, Thyroid Normal Size and Texture Lungs: Clear to auscultation, No rhonchi, No wheeze, Diminished Cardiovascular: Regular rate, Regular Rhythm, Normal S1, Normal S2, No murmurs, PMI Normal, No rub noted, No Gallop Abdomen: Bowel Sounds Present, Soft, Non Tender, Non-Distended Extremities: No clubbing, No cyanosis, No edema, Capillary Refill Less than 3 Seconds Skin: No rashes, No breakdown Musculoskeletal: No Tenderness to Palpation of Joints or Extremities Neurological: Cranial nerves II-XII grossly intact, Neuro grossly intact, Sensory exam intact to light touch and pain, Coordination normal Psych/Mental Status: Normal Affect, Appropriate, Alert and oriented to time, place, person, mood and affect - Physical Exam Vitals/I&O's: Vital Signs Temp Pulse Resp BP Pulse Ox 97.0 F L 50 L 19 H 136/72 H 94 10/20/20 10:08 10/20/20 10:08 10/20/20 10:08 10/20/20 10:08 10/20/20 10:08 Oxygen Flow Rate (L/min) 4 Oxygen Delivery Method Nasal Cannula Weight: 130.7 kg Body Mass Index (BMI) 38.6 Intake and Output for Last 24 Hours 10/18/20 10/19/20 10/20/20 23:59 23:59 23:59 Intake Total 1987.74 / 1987.74 661 / 901 360 / 360 Output Total 1275 / 1275 750 / 750 300 / 300 Balance 713.74 / 713.74 -89 / 151 60 / 60 Microbiology Past 72 Hours 10/17/20 21:50 Urine, Clean Catch Urine Culture - Final Culture exhibits no growth. 10/17/20 18:05 Blood Culture (Wb) - Anticubital Right Blood Culture - Preliminary No growth in 48 hours. 10/17/20 17:40 Blood Culture (Wb) - Anticubital Left Blood Culture - Preliminary No growth in 48 hours. Current Medications Acetaminophen (Acetaminophen 325 Mg Tablet) 650 mg PO Q6H PRN PRN PRN Reason: Pain Score 1-10/Temp > 100.7 F Albuterol Sulfate (Albuterol Ih 8.5 Gm (Proair) Inhaler (200 Puffs)) 2 puff INHALATION Q4H PRN PRN PRN Reason: Shortness of breath, wheezing Amlodipine Besylate (Amlodipine 10 Mg Tablet) 10 mg PO QHS [facility] Last Admin: 10/19/20 20:36 Dose: 10 mg Documented by: Apixaban (Apixaban 5 Mg Tablet) 10 mg PO BID [facility] Last Admin: 10/20/20 10:12 Dose: 10 mg Documented by: Aspirin (Aspirin E.C. 81 Mg Tablet) 81 mg PO DAILY [facility] Last Admin: 10/20/20 10:13 Dose: 81 mg Documented by: Colestipol HCl (Colestipol Hcl 1 Gm Tablet) 1 gm PO QHS [facility] Last Admin: 10/19/20 20:38 Dose: 1 gm Documented by: Dexamethasone (Dexamethasone 4 Mg Tablet) 6 mg PO DAILY [facility] Stop: 10/26/20 10:01 Last Admin: 10/20/20 12:08 Dose: 6 mg Documented by: Escitalopram Oxalate (Escitalopram Oxalate 20 Mg Tablet) 20 mg PO DAILY [facility] Last Admin: 10/20/20 10:12 Dose: 20 mg Documented by: Ondansetron HCl (Ondansetron 4 Mg/2 Ml Vial) 4 mg IV Q8H PRN PRN PRN Reason: NAUSEA/VOMITING Senna/Docusate Sodium (Senna/Docusate Sodium 1 Tablet) 2 tablet PO BID PRN PRN PRN Reason: Constipation Medical Necessity - Tobacco Use Smoking Status: Former smoker Tobacco Use: Cigarettes, Cigars Assessment/Plan All Active Problems Pulmonary embolism (Acute) COVID-19 (Acute) Respiratory failure with hypoxia (Acute) Acute kidney injury (Acute) #1 acute hypoxic respiratory failure secondary to COVID-19 pneumonia and pulmonary emboli-pulmonary medicine is participating in his care, continue to monitor pulse ox. Patient is currently on Eliquis. His oxygenation is adequate on 4 L via nasal cannula. #2 COVID-19 pneumonia-patient will remain on dexamethasone #3 essential hypertension #4 acute kidney injury-resolved at this time #5 elevated troponin-secondary to respiratory failure #6 hypokalemia-corrected at this time #7 hyperlipidemia #8 chronic depression Inpatient E&M: 79421 Subs Hosp L2
[2020-10-20] MEDS: amLODIPine 10 MG Tablet PO (20:39)
[2020-10-21] VITALS (8 sets, daily range): BP systolic 131–145; BP diastolic 66–77; PULSE 48–55; RESP 18–20; TEMP 35.5–36.3; O2SAT 93–97
[2020-10-21] MEDS: Aspirin E.C. 81 MG Tablet PO (09:31)
[2020-10-21] MEDS: dexAMETHasone 4 MG Tablet 6 MG PO (09:31)
[2020-10-21] MEDS: APIXABAN 5 MG TABLET 10 MG PO ×2 (09:31→20:31)
[2020-10-21] MEDS: Escitalopram Oxalate 20 MG Tablet PO (09:31)
--- NOTE | 2020-10-21 12:22 | PCM.PROGNOTE ---
Patient Problems: Active and Suspected Problems Pulmonary embolism (Acute) COVID-19 (Acute) Respiratory failure with hypoxia (Acute) Acute kidney injury (Acute) Subjective: Patient was seen and examined today, he is on 4 L via nasal cannula and he appears comfortable, he does not complain of any shortness of breath, fever or chills. Objective: Objective: General: Alert, Oriented x3, Cooperative, No apparent distress, Well developed, Well nourished HEENT: Atraumatic, PERRLA, EOMI, Normocephalic Oral: Moist Mucosa Neck: Supple, No JVD, Trachea Midline, Thyroid Normal Size and Texture Lungs: Clear to auscultation, No rhonchi, No wheeze, Diminished Cardiovascular: Regular rate, Regular Rhythm, Normal S1, Normal S2, No murmurs, PMI Normal, No rub noted, No Gallop Abdomen: Bowel Sounds Present, Soft, Non Tender, Non-Distended Extremities: No clubbing, No cyanosis, No edema, Capillary Refill Less than 3 Seconds Skin: No rashes, No breakdown Musculoskeletal: No Tenderness to Palpation of Joints or Extremities Neurological: Cranial nerves II-XII grossly intact, Neuro grossly intact, Sensory exam intact to light touch and pain, Coordination normal Psych/Mental Status: Normal Affect, Appropriate, Alert and oriented to time, place, person, mood and affect - Physical Exam Vitals/I&O's: Vital Signs Temp Pulse Resp BP Pulse Ox 97.0 F L 50 L 18 131/66 H 93 10/21/20 09:00 10/21/20 09:00 10/21/20 09:00 10/21/20 09:00 10/21/20 09:00 Oxygen Flow Rate (L/min) 4 Oxygen Delivery Method Nasal Cannula Weight: 131.7 kg Body Mass Index (BMI) 38.6 Intake and Output for Last 24 Hours 10/19/20 10/20/20 10/21/20 23:59 23:59 23:59 Intake Total 661 / 901 760 / 760 Output Total 750 / 750 800 / 800 Balance -89 / 151 -40 / -40 Microbiology Past 72 Hours 10/17/20 21:50 Urine, Clean Catch Urine Culture - Final Culture exhibits no growth. 10/17/20 18:05 Blood Culture (Wb) - Anticubital Right Blood Culture - Preliminary No growth in 48 hours. 10/17/20 17:40 Blood Culture (Wb) - Anticubital Left Blood Culture - Preliminary No growth in 48 hours. Current Medications Acetaminophen (Acetaminophen 325 Mg Tablet) 650 mg PO Q6H PRN PRN PRN Reason: Pain Score 1-10/Temp > 100.7 F Albuterol Sulfate (Albuterol Ih 8.5 Gm (Proair) Inhaler (200 Puffs)) 2 puff INHALATION Q4H PRN PRN PRN Reason: Shortness of breath, wheezing Amlodipine Besylate (Amlodipine 10 Mg Tablet) 10 mg PO QHS [facility] Last Admin: 10/20/20 20:39 Dose: 10 mg Documented by: Apixaban (Apixaban 5 Mg Tablet) 10 mg PO BID [facility] Last Admin: 10/21/20 09:31 Dose: 10 mg Documented by: Aspirin (Aspirin E.C. 81 Mg Tablet) 81 mg PO DAILY [facility] Last Admin: 10/21/20 09:31 Dose: 81 mg Documented by: Calcium Carbonate (Calcium Carbonate 500 Mg Tablet) 500 mg PO Q4H PRN PRN PRN Reason: HEARTBURN Colestipol HCl (Colestipol Hcl 1 Gm Tablet) 1 gm PO QHS [facility] Last Admin: 10/20/20 20:38 Dose: 1 gm Documented by: Dexamethasone (Dexamethasone 4 Mg Tablet) 6 mg PO DAILY [facility] Stop: 10/26/20 10:01 Last Admin: 10/21/20 09:31 Dose: 6 mg Documented by: Escitalopram Oxalate (Escitalopram Oxalate 20 Mg Tablet) 20 mg PO DAILY [facility] Last Admin: 10/21/20 09:31 Dose: 20 mg Documented by: Ondansetron HCl (Ondansetron 4 Mg/2 Ml Vial) 4 mg IV Q8H PRN PRN PRN Reason: NAUSEA/VOMITING Senna/Docusate Sodium (Senna/Docusate Sodium 1 Tablet) 2 tablet PO BID PRN PRN PRN Reason: Constipation Medical Necessity - Tobacco Use Smoking Status: Former smoker Tobacco Use: Cigarettes, Cigars Assessment/Plan All Active Problems Pulmonary embolism (Acute) COVID-19 (Acute) Respiratory failure with hypoxia (Acute) Acute kidney injury (Acute) #1 acute hypoxic respiratory failure secondary to COVID-19 pneumonia and pulmonary emboli-pulmonary medicine is participating in his care, continue to monitor pulse ox. Patient is currently on Eliquis. His oxygenation is adequate on 4 L via nasal cannula. #2 COVID-19 pneumonia-patient will remain on dexamethasone #3 essential hypertension #4 acute kidney injury-resolved at this time #5 elevated troponin-secondary to respiratory failure #6 hypokalemia-corrected at this time #7 hyperlipidemia #8 chronic depression Inpatient E&M: 33246 Subs Hosp L2
[2020-10-21] MEDS: amLODIPine 10 MG Tablet PO (20:30)
[2020-10-22 03:00] VITALS: BP 135/80; PULSE 42; RESP 18; TEMP 35.8; O2SAT 96
--- NOTE | 2020-10-22 05:55 | PCS.PANDOC ---
PANDEMIC DOCUMENTATION INITIATED: Date: 10/22/2020 Time: 0555
--- NOTE | 2020-10-22 06:34 | PCM.PN.PUL ---
Patient Problems: Active and Suspected Problems Pulmonary embolism (Acute) COVID-19 (Acute) Respiratory failure with hypoxia (Acute) Acute kidney injury (Acute) Subjective: The patient was seen and examined at the bedside this morning. Events from the last 24 hours have been reviewed. The patient is currently afebrile, hemodynamically stable and maintaining appropriate oxygen saturations on 4 L/min via nasal cannula. No overnight issues were identified. Objective: The patient's most recent lab work, culture data and imaging studies have all been personally reviewed. CTA chest demonstrated extensive bilateral pulmonary emboli. Blood and urine cultures have demonstrated no growth to date. - Physical Exam Vitals/I&O's: Vital Signs Temp Pulse Resp BP Pulse Ox 96.4 F L 42 L 18 135/80 H 96 10/22/20 03:00 10/22/20 03:00 10/22/20 03:00 10/22/20 03:00 10/22/20 03:00 Oxygen Flow Rate (L/min) 4 Oxygen Delivery Method Nasal Cannula Weight: 300 lb 0.786 oz Body Mass Index (BMI) 38.6 Intake and Output for Last 24 Hours 10/20/20 10/21/20 10/22/20 23:59 23:59 23:59 Intake Total 760 / 760 540 / 1040 750 / 750 Output Total 800 / 800 550 / 550 Balance -40 / -40 -10 / 490 750 / 750 General: Alert, Cooperative, No apparent distress HEENT: Atraumatic, PERRLA, Normocephalic Oral: No Gingival or Mucosal Lesions/ Ulcerations Neck: Supple, No Nodes, Trachea Midline Lungs: No rhonchi, No wheeze, No rales, Diminished Cardiovascular: Regular rate, Regular Rhythm Abdomen: Bowel Sounds Present, Soft, Non Tender, Obese Extremities: No clubbing, No cyanosis, No edema Skin: No breakdown Musculoskeletal: No Tenderness to Palpation of Joints or Extremities Lymphatic: No Cervical, Supraclavicular, or Inguinal Adenopathy Neurological: Cranial nerves II-XII grossly intact, Neuro grossly intact Psych/Mental Status: Alert and oriented to time, place, person, mood and affect Microbiology 10/17/20 21:50 Urine, Clean Catch Urine Culture - Final Culture exhibits no growth. 10/17/20 18:05 Blood Culture (Wb) - Anticubital Right Blood Culture - Preliminary No growth in 48 hours. 10/17/20 17:40 Blood Culture (Wb) - Anticubital Left Blood Culture - Preliminary No growth in 48 hours. Clinical Impression(s) from Imaging Studies Chest CTA 10/17/20 18:31 IMPRESSION: Extensive bilateral PE. Low-density filling defects noted within the distal aspects of both main pulmonary arteries extending into all 5 pulmonary lobes Diffuse interstitial and airspace opacifications in the periphery of both lung morejon consistent with Covid pneumonia. No pleural or pericardial effusions Degenerative bony changes N.B. : The above information has been verbally conveyed by Chucho Garcia MD to Javier Rosales MD, on 10/17/2020 19:13:30 (ET). Electronically Signed: Chucho Garcia MD at 19:14 EST , Service support , ADDENDUM: 10/17/20 192 IMPRESSION: Extensive bilateral PE. Low-density filling defects noted within the distal aspects of both main pulmonary arteries extending into all 5 pulmonary lobes Diffuse interstitial and airspace opacifications in the periphery of both lung morejon consistent with Covid pneumonia. No pleural or pericardial effusions Degenerative bony changes N.B. : The above information has been verbally conveyed by Chucho Garcia MD to Javier Rosales MD, on 10/17/2020 19:13:30 (ET). Electronically Signed: Chucho Garcia MD at 19:14 EST , Service support , Current Medications Acetaminophen (Acetaminophen 325 Mg Tablet) 650 mg PO Q6H PRN PRN PRN Reason: Pain Score 1-10/Temp > 100.7 F Albuterol Sulfate (Albuterol Ih 8.5 Gm (Proair) Inhaler (200 Puffs)) 2 puff INHALATION Q4H PRN PRN PRN Reason: Shortness of breath, wheezing Amlodipine Besylate (Amlodipine 10 Mg Tablet) 10 mg PO QHS [facility] Last Admin: 10/21/20 20:30 Dose: 10 mg Documented by: Apixaban (Apixaban 5 Mg Tablet) 10 mg PO BID [facility] Last Admin: 12/25/20 20:31 Dose: 10 mg Documented by: Aspirin (Aspirin E.C. 81 Mg Tablet) 81 mg PO DAILY [facility] Last Admin: 10/21/20 09: Dose: 81 mg Documented by: Calcium Carbonate (Calcium Carbonate 500 Mg Tablet) 500 mg PO Q4H PRN PRN PRN Reason: HEARTBURN Colestipol HCl (Colestipol Hcl 1 Gm Tablet) 1 gm PO QHS [facility] Last Admin: 10/21/20: Dose: 1 gm Documented by: Dexamethasone (Dexamethasone 4 Mg Tablet) 6 mg PO DAILY [facility] Stop: 10/26/20 10:01 Last Admin: 10/21/20: Dose: 6 mg Documented by: Escitalopram Oxalate (Escitalopram Oxalate 20 Mg Tablet) 20 mg PO DAILY [facility] Last Admin: 10/21/20 Dose: 20 mg Documented by: Ondansetron HCl (Ondansetron 4 Mg/2 Ml Vial) 4 mg IV Q8H PRN PRN PRN Reason: NAUSEA/VOMITING Senna/Docusate Sodium (Senna/Docusate Sodium 1 Tablet) 2 tablet PO BID PRN PRN PRN Reason: Constipation Medical Necessity - Tobacco Use Smoking Status: Former smoker Tobacco Use: Cigarettes, Cigars Assessment/Plan All Active Problems Pulmonary embolism (Acute) COVID-19 (Acute) Respiratory failure with hypoxia (Acute) Acute kidney injury (Acute) RECOMMENDATIONS: 1. Wean supplemental oxygen to maintain saturations at or above 90%. 2. Continue Decadron to complete 10-day treatment course. 3. Continue systemic anticoagulation with Eliquis. 4. Encourage incentive spirometer use and mobilize patient as tolerated. IMPRESSIONS: 1. Acute hypoxic respiratory failure secondary to acute bilateral PE/COVID-19 pneumonia Plan to continue current supportive measures including systemic anticoagulation with Eliquis along with Decadron to complete a 10-day treatment course. Given duration of symptoms, the patient was not felt to be a candidate for remdesivir. Supplemental oxygen will be weaned to maintain oxygen saturations at or above 90%. Encourage incentive spirometer use and mobilize patient as tolerated. 2. Elevated troponin Likely combination of global hypoxia and acute kidney injury. Continue to monitor with telemetry. Would not recommend aggressive interventions at this time. 3. Acute kidney injury Improved. Suspected ATN secondary to global hypoxia. Continue to support blood pressure and monitor BMP on a daily basis. No indication for a nephrology consult for renal replacement therapy from my perspective. 4. Morbid obesity/hypertension/depression/protracted presentation Complicates care, management, recovery and prognosis. Continue home medications as indicated. This note was generated with [employer] dictation software. It may contain incorrect words, spelling, and punctuation that were not noted in checking the note before signing. Inpatient E&M: 86935 Subs Hosp L2
[2020-10-22 07:45] VITALS: O2SAT 90
[2020-10-22 09:14] VITALS: BP 129/78; PULSE 51; RESP 18; TEMP 35.8; O2SAT 96
[2020-10-22] MEDS: Aspirin E.C. 81 MG Tablet PO (09:17)
[2020-10-22] MEDS: APIXABAN 5 MG TABLET 10 MG PO ×2 (09:17→20:27)
[2020-10-22] MEDS: Escitalopram Oxalate 20 MG Tablet PO (09:17)
[2020-10-22] MEDS: dexAMETHasone 4 MG Tablet 6 MG PO (09:17)
--- NOTE | 2020-10-22 12:13 | PCM.PROGNOTE ---
Patient Problems: Active and Suspected Problems Pulmonary embolism (Acute) COVID-19 (Acute) Respiratory failure with hypoxia (Acute) Acute kidney injury (Acute) Subjective: Patient was seen and examined today, I briefly talked with him about going home, he is on 4 L of oxygen at rest but requires 5 L on exertion., Patient does not feel comfortable going home at this time he has a two-story house and requested to remain here until 10/24/20. Patient has no complaints of any fevers or chills. He has no complaints of any chest pain. - Physical Exam Vitals/I&O's: Vital Signs Temp Pulse Resp BP Pulse Ox 96.4 F L 51 L 18 129/78 H 96 10/22/20 09:14 10/22/20 09:14 10/22/20 09:14 10/22/20 09:14 10/22/20 09:14 Oxygen Flow Rate (L/min) 5 Oxygen Delivery Method Nasal Cannula Weight: 136.1 kg Body Mass Index (BMI) 38.6 Intake and Output for Last 24 Hours 10/20/20 10/21/20 10/22/20 23:59 23:59 23:59 Intake Total 760 / 760 540 / 1040 750 / 750 Output Total 800 / 800 550 / 550 Balance -40 / -40 -10 / 490 750 / 750 General: Alert, Oriented x3, Cooperative, No apparent distress, Well developed, Well nourished HEENT: Atraumatic, PERRLA, EOMI, Normocephalic Oral: Moist Mucosa Neck: Supple, No JVD, Negative Carotid Bruits Lungs: Clear to auscultation, Normal air movement Cardiovascular: Regular rate, Regular Rhythm, Normal S1, Normal S2, No murmurs, No rub noted, No Gallop Abdomen: Bowel Sounds Present, Soft, Non Tender, Non-Distended, Obese Extremities: No clubbing, No cyanosis, No edema, Capillary Refill Less than 3 Seconds Skin: No rashes, No breakdown Musculoskeletal: No Tenderness to Palpation of Joints or Extremities Neurological: Cranial nerves II-XII grossly intact, Sensory exam intact to light touch and pain, Coordination normal Psych/Mental Status: Normal Affect, Appropriate, Alert and oriented to time, place, person, mood and affect Microbiology Past 72 Hours 10/17/20 21:50 Urine, Clean Catch Urine Culture - Final Culture exhibits no growth. 10/17/20 18:05 Blood Culture (Wb) - Anticubital Right Blood Culture - Preliminary No growth in 48 hours. 10/17/20 17:40 Blood Culture (Wb) - Anticubital Left Blood Culture - Preliminary No growth in 48 hours. Current Medications Acetaminophen (Acetaminophen 325 Mg Tablet) 650 mg PO Q6H PRN PRN PRN Reason: Pain Score 1-10/Temp > 100.7 F Albuterol Sulfate (Albuterol Ih 8.5 Gm (Proair) Inhaler (200 Puffs)) 2 puff INHALATION Q4H PRN PRN PRN Reason: Shortness of breath, wheezing Amlodipine Besylate (Amlodipine 10 Mg Tablet) 10 mg PO QHS [facility] Last Admin: 10/21/20 20:30 Dose: 10 mg Documented by: Apixaban (Apixaban 5 Mg Tablet) 10 mg PO BID [facility] Last Admin: 10/22/20 09:17 Dose: 10 mg Documented by: Aspirin (Aspirin E.C. 81 Mg Tablet) 81 mg PO DAILY [facility] Last Admin: 10/22/20 09:17 Dose: 81 mg Documented by: Calcium Carbonate (Calcium Carbonate 500 Mg Tablet) 500 mg PO Q4H PRN PRN PRN Reason: HEARTBURN Colestipol HCl (Colestipol Hcl 1 Gm Tablet) 1 gm PO QHS [facility] Last Admin: 10/21/20 20:31 Dose: 1 gm Documented by: Dexamethasone (Dexamethasone 4 Mg Tablet) 6 mg PO DAILY [facility] Stop: 10/26/20 10:01 Last Admin: 10/22/20 09:17 Dose: 6 mg Documented by: Escitalopram Oxalate (Escitalopram Oxalate 20 Mg Tablet) 20 mg PO DAILY [facility] Last Admin: 10/22/20 09:17 Dose: 20 mg Documented by: Ondansetron HCl (Ondansetron 4 Mg/2 Ml Vial) 4 mg IV Q8H PRN PRN PRN Reason: NAUSEA/VOMITING Senna/Docusate Sodium (Senna/Docusate Sodium 1 Tablet) 2 tablet PO BID PRN PRN PRN Reason: Constipation Medical Necessity - Tobacco Use Smoking Status: Former smoker Tobacco Use: Cigarettes, Cigars Assessment/Plan All Active Problems Pulmonary embolism (Acute) COVID-19 (Acute) Respiratory failure with hypoxia (Acute) Acute kidney injury (Acute) #1 acute hypoxic respiratory failure secondary to COVID-19 pneumonia and pulmonary emboli-pulmonary medicine is participating in his care, continue to monitor pulse ox. Patient is currently on Eliquis. His discharge will be planned for 10/24/2020-most likely he will need to go home on some supplemental oxygen. #2 COVID-19 pneumonia-patient will remain on dexamethasone until 10/26/2020 #3 essential hypertension #4 acute kidney injury-resolved at this time #5 elevated troponin-secondary to respiratory failure #6 hypokalemia-corrected at this time #7 hyperlipidemia #8 chronic depression #9 morbid obesity Inpatient E&M: 49838 Subs Hosp L2
[2020-10-22 15:53] VITALS: BP 142/63; PULSE 52; RESP 18; TEMP 36.9; O2SAT 93
[2020-10-22 20:21] VITALS: BP 148/94; PULSE 51; RESP 18; TEMP 35.8; O2SAT 98
[2020-10-22] MEDS: amLODIPine 10 MG Tablet PO (20:27)
[2020-10-23] VITALS (7 sets, daily range): BP systolic 135–140; BP diastolic 73–81; PULSE 47–56; RESP 18; TEMP 35.8–36.6; O2SAT 93–96
--- NOTE | 2020-10-23 06:22 | PCM.PN.PUL ---
Patient Problems: Active and Suspected Problems Pulmonary embolism (Acute) COVID-19 (Acute) Respiratory failure with hypoxia (Acute) Acute kidney injury (Acute) Subjective: The patient was seen and examined at the bedside this morning. Events from the last 24 hours have been reviewed. The patient is currently afebrile, hemodynamically stable and maintaining appropriate oxygen saturations on 4 L/min via nasal cannula. The patient, again, had no specific complaints this morning. Objective: The patient's most recent lab work, culture data and imaging studies have all been personally reviewed. CTA chest demonstrated extensive bilateral pulmonary emboli. Blood and urine cultures have demonstrated no growth to date. - Physical Exam Vitals/I&O's: Vital Signs Temp Pulse Resp BP Pulse Ox 96.4 F L 47 L 18 135/75 H 96 10/23/20 02:47 10/23/20 02:47 10/23/20 02:47 10/23/20 02:47 10/23/20 02:47 Oxygen Flow Rate (L/min) 4 Oxygen Delivery Method Nasal Cannula Weight: 300 lb 0.786 oz Body Mass Index (BMI) 38.6 Intake and Output for Last 24 Hours 10/21/20 10/22/20 10/23/20 23:59 23:59 23:59 Intake Total 540 / 1040 1300 / 1300 240 / 240 Output Total 550 / 550 675 / 675 Balance -10 / 490 625 / 625 240 / 240 General: Alert, Oriented x3, Cooperative, No apparent distress HEENT: Atraumatic, PERRLA, Normocephalic Oral: Moist Mucosa, No Gingival or Mucosal Lesions/ Ulcerations Neck: Supple, No Nodes, Trachea Midline Lungs: No rhonchi, No wheeze, No rales, Diminished Cardiovascular: Regular rate, Regular Rhythm Abdomen: Bowel Sounds Present, Soft, Non Tender, Obese Extremities: No clubbing, No cyanosis, No edema Skin: No breakdown Musculoskeletal: No Tenderness to Palpation of Joints or Extremities, No Muscle Wasting Lymphatic: No Cervical, Supraclavicular, or Inguinal Adenopathy Neurological: Cranial nerves II-XII grossly intact, Neuro grossly intact Psych/Mental Status: Alert and oriented to time, place, person, mood and affect Microbiology 10/17/20 18:05 Blood Culture (Wb) - Anticubital Right Blood Culture - Final No growth in 5 days. 10/17/20 17:40 Blood Culture (Wb) - Anticubital Left Blood Culture - Final No growth in 5 days. Clinical Impression(s) from Imaging Studies Chest CTA 10/17/20 18:31 IMPRESSION: Extensive bilateral PE. Low-density filling defects noted within the distal aspects of both main pulmonary arteries extending into all 5 pulmonary lobes Diffuse interstitial and airspace opacifications in the periphery of both lung morejon consistent with Covid pneumonia. No pleural or pericardial effusions Degenerative bony changes N.B. : The above information has been verbally conveyed by Chucho Garcia MD to Javier Rosales MD, on 10/17/2020 19:13:30 (ET). Electronically Signed: Chucho Garcia MD at 19:14 EST , Service support , ADDENDUM: 10/17/20 192 IMPRESSION: Extensive bilateral PE. Low-density filling defects noted within the distal aspects of both main pulmonary arteries extending into all 5 pulmonary lobes Diffuse interstitial and airspace opacifications in the periphery of both lung morejon consistent with Covid pneumonia. No pleural or pericardial effusions Degenerative bony changes N.B. : The above information has been verbally conveyed by Chucho Garcia MD to Javier Rosales MD, on 10/17/2020 19:13:30 (ET). Electronically Signed: Chucho Garcia MD at 19:14 EST , Service support , Current Medications Acetaminophen (Acetaminophen 325 Mg Tablet) 650 mg PO Q6H PRN PRN PRN Reason: Pain Score 1-10/Temp > 100.7 F Albuterol Sulfate (Albuterol Ih 8.5 Gm (Proair) Inhaler (200 Puffs)) 2 puff INHALATION Q4H PRN PRN PRN Reason: Shortness of breath, wheezing Amlodipine Besylate (Amlodipine 10 Mg Tablet) 10 mg PO QHS [facility] Last Admin: 10/22/20 20:27 Dose: 10 mg Documented by: Apixaban (Apixaban 5 Mg Tablet) 10 mg PO BID [facility] Last Admin: 12/26/20 20:27 Dose: 10 mg Documented by: Aspirin (Aspirin E.C. 81 Mg Tablet) 81 mg PO DAILY [facility] Last Admin: 10/22/20 09:17 Dose: 81 mg Documented by: Calcium Carbonate (Calcium Carbonate 500 Mg Tablet) 500 mg PO Q4H PRN PRN PRN Reason: HEARTBURN Colestipol HCl (Colestipol Hcl 1 Gm Tablet) 1 gm PO QHS [facility] Last Admin: 10/22/20 20:27 Dose: 1 gm Documented by: Dexamethasone (Dexamethasone 4 Mg Tablet) 6 mg PO DAILY [facility] Stop: 10/26/20 10:01 Last Admin: 10/22/20 09:17 Dose: 6 mg Documented by: Escitalopram Oxalate (Escitalopram Oxalate 20 Mg Tablet) 20 mg PO DAILY [facility] Last Admin: 10/22/20 09:17 Dose: 20 mg Documented by: Ondansetron HCl (Ondansetron 4 Mg/2 Ml Vial) 4 mg IV Q8H PRN PRN PRN Reason: NAUSEA/VOMITING Senna/Docusate Sodium (Senna/Docusate Sodium 1 Tablet) 2 tablet PO BID PRN PRN PRN Reason: Constipation Medical Necessity - Tobacco Use Smoking Status: Former smoker Tobacco Use: Cigarettes, Cigars Assessment/Plan All Active Problems Pulmonary embolism (Acute) COVID-19 (Acute) Respiratory failure with hypoxia (Acute) Acute kidney injury (Acute) RECOMMENDATIONS: 1. Wean supplemental oxygen to maintain saturations at or above 90%. Anticipate home-going supplemental oxygen need. 2. Continue Decadron to complete 10-day treatment course. 3. Continue systemic anticoagulation with Eliquis. 4. Encourage incentive spirometer use and mobilize patient as tolerated. IMPRESSIONS: 1. Acute hypoxic respiratory failure secondary to acute bilateral PE/COVID-19 pneumonia Plan to continue current supportive measures including systemic anticoagulation with Eliquis along with Decadron to complete a 10-day treatment course. Given duration of symptoms, the patient was not felt to be a candidate for remdesivir. Supplemental oxygen will be weaned to maintain oxygen saturations at or above 90%. Encourage incentive spirometer use and mobilize patient as tolerated. 2. Elevated troponin Likely combination of global hypoxia and acute kidney injury. Continue to monitor with telemetry. Would not recommend aggressive interventions at this time. 3. Acute kidney injury Improved. Suspected ATN secondary to global hypoxia. Continue to support blood pressure and monitor BMP on a daily basis. No indication for a nephrology consult for renal replacement therapy from my perspective. 4. Morbid obesity/hypertension/depression/protracted presentation Complicates care, management, recovery and prognosis. Continue home medications as indicated. This note was generated with [employer] software. It may contain incorrect words, spelling, and punctuation that were not noted in checking the note before signing. Inpatient E&M: 81181 Subs Hosp L2
[2020-10-23] MEDS: dexAMETHasone 4 MG Tablet 6 MG PO (08:51)
[2020-10-23] MEDS: Aspirin E.C. 81 MG Tablet PO (08:51)
[2020-10-23] MEDS: APIXABAN 5 MG TABLET 10 MG PO ×2 (08:52→20:13)
[2020-10-23] MEDS: Escitalopram Oxalate 20 MG Tablet PO (08:52)
--- NOTE | 2020-10-23 15:08 | PN_ITS ---
Patient Problems: Active and Suspected Problems Pulmonary embolism (Acute) COVID-19 (Acute) Respiratory failure with hypoxia (Acute) Acute kidney injury (Acute) Subjective: Patient was seen and examined today, he is now on 2 L via nasal cannula and appears to be comfortable. Patient has no complaints of any chest pain chills or fever. Objective: General: Alert, Oriented x3, Cooperative, No apparent distress, Well developed, Well nourished HEENT: Atraumatic, PERRLA, EOMI, Normocephalic Oral: Moist Mucosa Neck: Supple, No JVD, Negative Carotid Bruits Lungs: Clear to auscultation, Normal air movement Cardiovascular: Regular rate, Regular Rhythm, Normal S1, Normal S2, No murmurs, No rub noted, No Gallop Abdomen: Bowel Sounds Present, Soft, Non Tender, Non-Distended, Obese Extremities: No clubbing, No cyanosis, No edema, Capillary Refill Less than 3 Seconds Skin: No rashes, No breakdown Musculoskeletal: No Tenderness to Palpation of Joints or Extremities Neurological: Cranial nerves II-XII grossly intact, Sensory exam intact to light touch and pain, Coordination normal Psych/Mental Status: Normal Affect, Appropriate, Alert and oriented to time, place, person, mood and affect - Physical Exam Vitals/I&O's: Vital Signs Temp Pulse Resp BP Pulse Ox 97.8 F 48 L 18 140/81 H 93 10/23/20 08:44 10/23/20 08:44 10/23/20 12:44 10/23/20 08:44 10/23/20 13:40 Oxygen Flow Rate (L/min) 2 Oxygen Delivery Method Nasal Cannula Weight: 134.2 kg Body Mass Index (BMI) 38.6 Intake and Output for Last 24 Hours 10/21/20 10/22/20 10/23/20 23:59 23:59 23:59 Intake Total 540 / 1040 1300 / 1300 540 / 540 Output Total 550 / 550 675 / 675 Balance -10 / 490 625 / 625 540 / 540 Microbiology Past 72 Hours 10/17/20 18:05 Blood Culture (Wb) - Anticubital Right Blood Culture - Final No growth in 5 days. 10/17/20 17:40 Blood Culture (Wb) - Anticubital Left Blood Culture - Final No growth in 5 days. Current Medications Acetaminophen (Acetaminophen 325 Mg Tablet) 650 mg PO Q6H PRN PRN PRN Reason: Pain Score 1-10/Temp > 100.7 F Albuterol Sulfate (Albuterol Ih 8.5 Gm (Proair) Inhaler (200 Puffs)) 2 puff INHALATION Q4H PRN PRN PRN Reason: Shortness of breath, wheezing Amlodipine Besylate (Amlodipine 10 Mg Tablet) 10 mg PO QHS [facility] Last Admin: 10/22/20 20:27 Dose: 10 mg Documented by: Apixaban (Apixaban 5 Mg Tablet) 10 mg PO BID [facility] Last Admin: 10/23/20 08:52 Dose: 10 mg Documented by: Aspirin (Aspirin E.C. 81 Mg Tablet) 81 mg PO DAILY [facility] Last Admin: 10/23/20 08:51 Dose: 81 mg Documented by: Calcium Carbonate (Calcium Carbonate 500 Mg Tablet) 500 mg PO Q4H PRN PRN PRN Reason: HEARTBURN Colestipol HCl (Colestipol Hcl 1 Gm Tablet) 1 gm PO QHS [facility] Last Admin: 10/22/20 20:27 Dose: 1 gm Documented by: Dexamethasone (Dexamethasone 4 Mg Tablet) 6 mg PO DAILY [facility] Stop: 10/26/20 10:01 Last Admin: 10/23/20 08:51 Dose: 6 mg Documented by: Escitalopram Oxalate (Escitalopram Oxalate 20 Mg Tablet) 20 mg PO DAILY [facility] Last Admin: 10/23/20 08:52 Dose: 20 mg Documented by: Ondansetron HCl (Ondansetron 4 Mg/2 Ml Vial) 4 mg IV Q8H PRN PRN PRN Reason: NAUSEA/VOMITING Senna/Docusate Sodium (Senna/Docusate Sodium 1 Tablet) 2 tablet PO BID PRN PRN PRN Reason: Constipation Medical Necessity - Tobacco Use Smoking Status: Former smoker Tobacco Use: Cigarettes, Cigars Assessment/Plan All Active Problems Pulmonary embolism (Acute) COVID-19 (Acute) Respiratory failure with hypoxia (Acute) Acute kidney injury (Acute) #1 acute hypoxic respiratory failure secondary to COVID-19 pneumonia and pulmonary emboli-pulmonary medicine is participating in his care, continue to monitor pulse ox. Patient is currently on Eliquis. His discharge will be planned for 10/24/2020-it is unknown at this time whether he will need home oxygen. #2 COVID-19 pneumonia-patient will remain on dexamethasone until 10/26/2020 #3 essential hypertension #4 acute kidney injury-resolved at this time #5 elevated troponin-secondary to respiratory failure #6 hypokalemia-corrected at this time #7 hyperlipidemia #8 chronic depression #9 morbid obesity Inpatient E&M: 92416 Subs Hosp L2
[2020-10-23] MEDS: amLODIPine 10 MG Tablet PO (20:14)
[2020-10-24 02:39] VITALS: BP 150/63; PULSE 48; RESP 18; TEMP 36.2; O2SAT 96
[2020-10-24 07:30] VITALS: O2SAT 94
--- NOTE | 2020-10-24 07:53 | PCM.PN.PUL ---
Patient Problems: Active and Suspected Problems Pulmonary embolism (Acute) COVID-19 (Acute) Respiratory failure with hypoxia (Acute) Acute kidney injury (Acute) Subjective: The patient was seen and examined at the bedside this morning. Events from the last 24 hours have been reviewed. The patient is currently afebrile, hemodynamically stable and maintaining appropriate oxygen saturations on 2 L/min via nasal cannula. The patient is without any complaints this morning. Objective: The patient's most recent lab work, culture data and imaging studies have all been personally reviewed. CTA chest demonstrated extensive bilateral pulmonary emboli. Blood and urine cultures have demonstrated no growth to date. - Physical Exam Vitals/I&O's: Vital Signs Temp Pulse Resp BP Pulse Ox 97.1 F L 48 L 18 150/63 H 96 10/24/20 02:39 10/24/20 02:39 10/24/20 02:39 10/24/20 02:39 10/24/20 02:39 Oxygen Flow Rate (L/min) 2 Oxygen Delivery Method Nasal Cannula Weight: 295 lb 6.711 oz Body Mass Index (BMI) 38.6 Intake and Output for Last 24 Hours 10/22/20 10/23/20 10/24/20 23:59 23:59 23:59 Intake Total 1300 / 1300 1140 / 1140 960 / 960 Output Total 675 / 675 600 / 600 Balance 625 / 625 540 / 540 960 / 960 General: Alert, Oriented x3, Cooperative, No apparent distress HEENT: Atraumatic, PERRLA, Normocephalic Oral: Moist Mucosa, No Gingival or Mucosal Lesions/ Ulcerations Neck: Supple, No Nodes, Trachea Midline Lungs: No rhonchi, No wheeze, No rales, Diminished Cardiovascular: Regular rate, Regular Rhythm, Normal S1, Normal S2, No murmurs Abdomen: Bowel Sounds Present, Soft, Non Tender, Obese Extremities: No clubbing, No cyanosis, No edema Skin: No breakdown Musculoskeletal: No Tenderness to Palpation of Joints or Extremities, No Muscle Wasting Lymphatic: No Cervical, Supraclavicular, or Inguinal Adenopathy Neurological: Cranial nerves II-XII grossly intact, Neuro grossly intact Psych/Mental Status: Alert and oriented to time, place, person, mood and affect Microbiology 10/17/20 18:05 Blood Culture (Wb) - Anticubital Right Blood Culture - Final No growth in 5 days. 10/17/20 17:40 Blood Culture (Wb) - Anticubital Left Blood Culture - Final No growth in 5 days. Clinical Impression(s) from Imaging Studies Chest CTA 10/17/20 18:31 IMPRESSION: Extensive bilateral PE. Low-density filling defects noted within the distal aspects of both main pulmonary arteries extending into all 5 pulmonary lobes Diffuse interstitial and airspace opacifications in the periphery of both lung morejon consistent with Covid pneumonia. No pleural or pericardial effusions Degenerative bony changes N.B. : The above information has been verbally conveyed by Chucho Garcia MD to Javier Rosales MD, on 10/17/2020 19:13:30 (ET). Electronically Signed: Chucho Garcia MD at 19:14 EST , Service support , ADDENDUM: 10/17/201920 IMPRESSION: Extensive bilateral PE. Low-density filling defects noted within the distal aspects of both main pulmonary arteries extending into all 5 pulmonary lobes Diffuse interstitial and airspace opacifications in the periphery of both lung morejon consistent with Covid pneumonia. No pleural or pericardial effusions Degenerative bony changes N.B. : The above information has been verbally conveyed by Chucho Garcia MD to Javier Rosales MD, on 10/17/2020 19:13:30 (ET). Electronically Signed: Chucho Garcia MD at 19:14 EST , Service support , Current Medications Acetaminophen (Acetaminophen 325 Mg Tablet) 650 mg PO Q6H PRN PRN PRN Reason: Pain Score 1-10/Temp > 100.7 F Albuterol Sulfate (Albuterol Ih 8.5 Gm (Proair) Inhaler (200 Puffs)) 2 puff INHALATION Q4H PRN PRN PRN Reason: Shortness of breath, wheezing Amlodipine Besylate (Amlodipine 10 Mg Tablet) 10 mg PO QHS [facility] Last Admin: 10/23/20 20:14 Dose: 10 mg Documented by: Apixaban (Apixaban 5 Mg Tablet) 10 mg PO BID [facility] Last Admin: 10/23/20 20:13 Dose: 10 mg Documented by: Aspirin (Aspirin E.C. 81 Mg Tablet) 81 mg PO DAILY [facility] Last Admin: 10/23/20 08:51 Dose: 81 mg Documented by: Calcium Carbonate (Calcium Carbonate 500 Mg Tablet) 500 mg PO Q4H PRN PRN PRN Reason: HEARTBURN Colestipol HCl (Colestipol Hcl 1 Gm Tablet) 1 gm PO QHS [facility] Last Admin: 10/23/20 20:13 Dose: 1 gm Documented by: Dexamethasone (Dexamethasone 4 Mg Tablet) 6 mg PO DAILY [facility] Stop: 10/26/20 10:01 Last Admin: 10/23/20 08:51 Dose: 6 mg Documented by: Escitalopram Oxalate (Escitalopram Oxalate 20 Mg Tablet) 20 mg PO DAILY [facility] Last Admin: 10/23/20 08:52 Dose: 20 mg Documented by: Ondansetron HCl (Ondansetron 4 Mg/2 Ml Vial) 4 mg IV Q8H PRN PRN PRN Reason: NAUSEA/VOMITING Senna/Docusate Sodium (Senna/Docusate Sodium 1 Tablet) 2 tablet PO BID PRN PRN PRN Reason: Constipation Medical Necessity - Tobacco Use Smoking Status: Former smoker Tobacco Use: Cigarettes, Cigars Assessment/Plan All Active Problems Pulmonary embolism (Acute) COVID-19 (Acute) Respiratory failure with hypoxia (Acute) Acute kidney injury (Acute) RECOMMENDATIONS: 1. Wean supplemental oxygen to maintain saturations at or above 90%. Anticipate home-going supplemental oxygen need. 2. Continue Decadron to complete 10-day treatment course. 3. Continue systemic anticoagulation with Eliquis. 4. Encourage incentive spirometer use and mobilize patient as tolerated. IMPRESSIONS: 1. Acute hypoxic respiratory failure secondary to acute bilateral PE/COVID-19 pneumonia Plan to continue current supportive measures including systemic anticoagulation with Eliquis along with Decadron to complete a 10-day treatment course. Given duration of symptoms, the patient was not felt to be a candidate for remdesivir. Supplemental oxygen will be weaned to maintain oxygen saturations at or above 90%. Encourage incentive spirometer use and mobilize patient as tolerated. 2. Elevated troponin Likely combination of global hypoxia and acute kidney injury. Continue to monitor with telemetry. Would not recommend aggressive interventions at this time. 3. Acute kidney injury Improved. Suspected ATN secondary to global hypoxia. Continue to support blood pressure and monitor BMP on a daily basis. No indication for a nephrology consult for renal replacement therapy from my perspective. 4. Morbid obesity/hypertension/depression/protracted presentation Complicates care, management, recovery and prognosis. Continue home medications as indicated. This note was generated with [employer] dictation software. It may contain incorrect words, spelling, and punctuation that were not noted in checking the note before signing. Inpatient E&M: 09365 Subs Hosp L2
[2020-10-24 08:01] VITALS: BP 146/87; PULSE 47; RESP 18; TEMP 36.4; O2SAT 94
[2020-10-24] MEDS: dexAMETHasone 4 MG Tablet 6 MG PO (08:14)
[2020-10-24] MEDS: Aspirin E.C. 81 MG Tablet PO (08:14)
[2020-10-24] MEDS: Escitalopram Oxalate 20 MG Tablet PO (08:15)
[2020-10-24] MEDS: APIXABAN 5 MG TABLET 10 MG PO (08:15)
--- NOTE | 2020-10-24 08:51 | PCM.DC ---
- Discharge Diagnoses Current Active Problems: Current Active and Chronic Problems Depression (Chronic) Hypertension (Chronic) Pulmonary embolism (Acute) COVID-19 (Acute) Respiratory failure with hypoxia (Acute) Acute kidney injury (Acute) You will use the following diet at home:: No restrictions Your food should be the consistency of: Regular Your liquids should be the consistency of: Regular/Thin Discharge Activity: Return to Normal Activity Weight Bearing Status: Full weight bearing Additional Instructions: Quarantine through 10/28/20 Oxygen at two liters per minute while ambulating Allergies/Adverse Reactions: Allergies Penicillins Allergy (Verified 10/19/19 11:13) Itching Medications to take at Discharge Amlodipine [Norvasc] 10 mg PO QHS 10/14/19 Colestipol Tablet [Colestid Tablet] 1 gm PO QHS 10/14/19 Escitalopram Oxalate [Lexapro] 20 mg PO DAILY 10/14/19 Vit C/E/Zn/Coppr/Lutein/Zeaxan [Preservision Areds 2 Softgel] 1 cap PO BID 10/14/19 Cholecalciferol (Vitamin D3) [Vitamin D3] 2,000 unit PO DAILY 10/17/20 Losartan Potassium 50 mg PO DAILY 10/17/20 Apixaban [Eliquis] 10 mg PO BID #64 tab 10/24/20 dexAMETHasone [Dexamethasone] 6 mg PO DAILY #6 tab 10/24/20 The following prescriptions were given: dexAMETHasone [Dexamethasone] 6 mg PO DAILY #6 tab Transmission Status: Received by [facility]/pharmacy #[id number] Apixaban [Eliquis] 10 mg PO BID #64 tab Transmission Status: Received by [facility]/pharmacy #[id number] Primary Care Physician: Arleen Hwang MD [Primary Care Provider] - Please follow up with your Primary Care Physician in: in one week Test Results: Test results from this visit will be discussed in further detail at your follow-up appointment, if applicable.
[2020-10-24 10:50] VITALS: O2SAT 90; O2SAT 92
--- NOTE | 2020-10-24 12:52 | CASEMGMT ---
Addendum entered by Deni Barnhart 10/24/20 13:45: Scripts were filled @ [facility], but [facility] pharmacy had been listed. TONY JOVEL called to [facility] pharmacy who stated they could not fill scripts as they could not be processed. Notified [facility] that medications were filled @ [facility] and could be cancelled @ [facility]. Verified with [facility] that scripts were filled including Eliquis using a 30 day free card and were delivered to patient. Call to patient to update that per his MMO insurance, Eliquis (and Xarelto) are listed as needing prior auth and TONY JOVEL could do this. Patient states he is switching insurance @ the beginning of the year and his prescription coverage would be different. Patient will find out his Eliquis copay once new insurance is active and if any difficulties with coverage, will call his PCP. Pt states I'll be on top of all of this. No prior auth pursued @ this time. -Oxygen script and information faxed to [facility] and call to [facility] to notify. They state portable tank should arrive @ [facility] within the hour. Eddie CANNON Original Note: TONY JOVEL Note: patient was to discharge home without oxygen. Initial oxygen testing was negative. PT worked with patient and documented decreased oxygen to 88% with ambulation. Call to patient's room to discuss. [facility] preferred. Oxygen will be set up through [facility]. Script tubed to ER for Dr. Lynn to sign. Eddie HADDADM
--- NOTE | 2020-10-24 16:55 | DS.PCM_ITS ---
Discharge Date and Diagnosis - Problem List Patient Problems: Active and Suspected Problems Pulmonary embolism (Acute) COVID-19 (Acute) Respiratory failure with hypoxia (Acute) Acute kidney injury (Acute) Date of Admission: 10/17/20 Date of Discharge: 10/24/20 - Primary Discharge Diagnosis Acute Problems: Active Problems #1 acute hypoxic respiratory failure secondary to COVID-19 pneumonia and pulmonary emboli #2 COVID-19 pneumonia #3 essential hypertension #4 acute kidney injury #5 elevated troponin-secondary to respiratory failure #6 hypokalemia #7 hyperlipidemia #8 chronic depression #9 morbid obesity #10 acute pulmonary emboli present on admission from COVID-19 infection - Secondary Discharge Diagnosis Chronic Problems: Chronic Problems Depression (Chronic) Hypertension (Chronic) Hospital Course and Treatment Operations: None Procedures: None Summary of Care Provided: The patient is a 65 year old M was seen in the emergency room at [facility] with complaints of shortness of breath, he was diagnosed as having COVID-19 infection as an outpatient. Work-up in the emergency room included a CT of the chest which showed multiple pulmonary emboli, patient had to be placed on high flow oxygen in the emergency room to maintain oxygenation. Patient's lactic acid was elevated at 3.5 on admission, creatinine was 1.6 indicating acute kidney injury. Patient was started on IV heparin and admitted to the ICU, he was maintained on IV dexamethasone and given remdesivir. Patient was seen in consultation by infectious diseases who stopped the remdesivir, he was also seen in consultation by pulmonary medicine. Patient's oxygenation improved gradually and he was moved out to [place] [id number]. On 10/24/2020, patient was seen and examined: On examination he appeared in good health and spirits. Vital signs as documented. Skin warm and dry and without overt rashes. Neck without JVD, neck was supple, trachea midline, thyroid was normal. Lungs clear bilaterally, normal air movement was noted. Heart exam notable for regular rhythm, normal sounds and absence of murmurs, rubs or gallops. Abdomen unremarkable and without evidence of organomegaly, masses, or abdominal aortic enlargement. Bowel sounds are present, abdomen is not distended. Extremities nonedematous, no cyanosis was noted, no clubbing was noted. Neuro: Cranial nerves II through XII are grossly intact, no focal motor deficits were noted, sensation to light touch and pinprick intact, motor exam 5/5 throughout. Psych: Patient is alert and oriented x3, he does not appear anxious or depressed, he does not appear agitated. Patient underwent a walking pulse oximetry on room air, this was abnormal at 88% and the patient required 2 L of oxygen to maintain his pulse ox above 88%. He was expected to use portable oxygen in his home and outside the home. Patient was discharged in stable condition on 10/24/2020. Patient Problems: Active and Suspected Problems Pulmonary embolism (Acute) COVID-19 (Acute) Respiratory failure with hypoxia (Acute) Acute kidney injury (Acute) - Physical Exam Vitals/I&O's: Vital Signs Temp Pulse Resp BP Pulse Ox 97.5 F L 47 L 18 146/87 H 92 10/24/20 08:01 10/24/20 08:01 10/24/20 08:01 10/24/20 08:01 10/24/20 10:50 Oxygen Flow Rate (L/min) 2 Oxygen Delivery Method Room Air Weight: 134 kg Body Mass Index (BMI) 38.6 Intake and Output for Last 24 Hours 10/22/20 10/23/20 10/24/20 23:59 23:59 23:59 Intake Total 1300 / 1300 1140 / 1140 960 / 960 Output Total 675 / 675 600 / 600 Balance 625 / 625 540 / 540 960 / 960 Microbiology Past 72 Hours 10/17/20 18:05 Blood Culture (Wb) - Anticubital Right Blood Culture - Final No growth in 5 days. 10/17/20 17:40 Blood Culture (Wb) - Anticubital Left Blood Culture - Final No growth in 5 days. Discharge Activity: Return to Normal Activity Weight Bearing Status: Full weight bearing Home Medications: Medications to take at Discharge Amlodipine [Norvasc] 10 mg PO QHS 10/14/19 Colestipol Tablet [Colestid Tablet] 1 gm PO QHS 10/14/19 Escitalopram Oxalate [Lexapro] 20 mg PO DAILY 10/14/19 Vit C/E/Zn/Coppr/Lutein/Zeaxan [Preservision Areds 2 Softgel] 1 cap PO BID 10/14/19 Cholecalciferol (Vitamin D3) [Vitamin D3] 2,000 unit PO DAILY 10/17/20 Losartan Potassium 50 mg PO DAILY 10/17/20 Apixaban [Eliquis] 10 mg PO BID #64 tab 10/24/20 dexAMETHasone [Dexamethasone] 6 mg PO DAILY #6 tab 10/24/20 Following Prescriptions Were Given to Patient: dexAMETHasone [Dexamethasone] 6 mg PO DAILY #6 tab Transmission Status: Received by [facility]/pharmacy #[id number] Apixaban [Eliquis] 10 mg PO BID #64 tab Transmission Status: Received by [facility]/pharmacy #[id number] Primary Care Physician: Arleen Hwang MD [Primary Care Provider] - Please follow up with your Primary Care Physician in: in one week Disposition: Home Minutes spent on discharge:: 31 Patient Condition:: Stable Medical Necessity - Tobacco Use Smoking Status: Former smoker Tobacco Use: Cigarettes, Cigars Meaningful Use Info Meaningful Use Diagnoses (Choose all that apply): VTE - VTE Anticoag overlap given w/in hospital stay or rx'd at nm?: No Pt receive overlap for 5 days?: No Reason overlap not ordered, prescribed, or given for 5 days: Treatment Not Indicated Inpatient E&M: [id number] [facility] Hosp
== END 2020-10-24 15:40 | disposition home or self-care (01) | DRG 177 ==
LOC: ED 19:36 → ICU 19:58 → MS2 10-19 19:13
PROVIDERS: Internal Medicine Critical Care Medicine; Admitting Provider Hospitalist; Emergency Provider Emergency Medicine; PCP Internal Medicine; Referring Provider Hospitalist; Visit Provider Internal Medicine
DX: U07.1 COVID-19 (principal); I26.99 Other pulmonary embolism without acute cor pulmonale; J96.01 Acute respiratory failure with hypoxia; J12.89 Other viral pneumonia; Z68.41 Body mass index [BMI] 40.0-44.9, adult; I24.8 Other forms of acute ischemic heart disease; N17.9 Acute kidney failure, unspecified; F32.9 Major depressive disorder, single episode, unspecified; I10 Essential (primary) hypertension; I44.0 Atrioventricular block, first degree; E87.6 Hypokalemia; E78.5 Hyperlipidemia, unspecified; G47.33 Obstructive sleep apnea (adult) (pediatric); E66.01 Morbid (severe) obesity due to excess calories; Z79.01 Long term (current) use of anticoagulants; Z90.49 Acquired absence of other specified parts of digestive tract; Z87.891 Personal history of nicotine dependence; Z85.51 Personal history of malignant neoplasm of bladder
CPT/HCPCS: 71275; 80053; 81001; 83605; 83615; 83880; 84145; 84484; 85025; 85610; 85730; 87040; 87086; 93005; 94640; 94660; 97110; 97116; 97162; 97166; 97530; 97802; 99251; 99285; J7030; J7050; Q9967; A4216; G0463

== ENCOUNTER 2022-09-18 16:27 | Emergency (ER) | payer MEDICARE, SELFPAY ==
[2022-09-18 16:29] VITALS: BP 170/91; PULSE 75; RESP 14; TEMP 36.8; O2SAT 95; BMI 43.6
--- NOTE | 2022-09-18 18:12 | EKG12_ITS ---
Test Reason : CP Blood Pressure : / mmHG Vent. Rate : 074 BPM Atrial Rate : 074 BPM P-R Int : 254 ms QRS Dur : 090 ms QT Int : 396 ms P-R-T Axes : 054 009 -12 degrees QTc Int : 439 ms Sinus rhythm with 1st degree A-V block Otherwise normal ECG Confirmed by KAROLINE VERDE, SARABJIT ([id number]), science editor MARTY WASHINGTON ([id number]) on 09/19/2022 9:12:41 AM Referred By: SANDRA Confirmed By:SARABJIT RAMEY MD
--- NOTE | 2022-09-18 18:24 | EDS_ITS ---
HPI History of Present Illness Chief Complaint: Chest Pain Informant: patient Onset/Context/Timing Onset: Days Activity at onset: gradual Timing: Intermittent Quality: Positive for Sharp and Stabbing Location: Right Chest and Left Chest Current Severity: Mild Maximum Severity: Mild Worsened By: Movement of Torso and Coughing; Not Worsened By Exertion, Movement of Arm, Eating or Palpation Relieved By: Nothing Associated Symptoms: Positive for Cough; Negative for Nausea, Vomiting, Diaphoresis, Dyspnea, Fever, Lightheadedness, Acid Reflux or Palpitations Narrative Narrative: 67-year-old male history of bilateral pulmonary emboli in the past with COVID. At that time he was on Eliquis that was DC'd about a year ago. No history of coronary disease. States the last 3 to 4 days he has been coughing and sneezing and has chest pain primarily with coughing and sneezing. No hemoptysis. He denies any recent travel, surgery or immobilization. No leg pain or swelling. He denies any radiation of the pain to his neck, jaw or arm. Prior Similar Symptoms: No Recent Illness/Hospitalization: No CVD Risk Factors: Negative for Diabetes or Smoking PE Risk Factors: Positive for Prior DVT or PE; Negative for Recent Travel/Surgery, Recent Immobilization, Cancer or OCP + Smoking + >/=35 TAD Risk Factors: Negative for Marfan's Syndrome PFSH PFS Home Medications amlodipine 10 mg tablet 10 mg PO QHS 10/14/19 [History Last Taken 10/17/20] colestipol 1 gram tablet 1 gm PO QHS 10/14/19 [History Last Taken 10/16/20] escitalopram oxalate 20 mg tablet 20 mg PO DAILY 10/14/19 [History Last Taken 10/17/20] vit C 250 mg-vit E 90 mg-zinc 40 mg-copper 1 uz-[id number]-fqjqpl capsule 1 cap PO BID eye health 10/14/19 [History Last Taken 10/17/20] cholecalciferol (vitamin D3) 25 mcg (1,000 unit) capsule 2,000 unit PO DAILY 10/17/20 [History Last Taken 10/17/20] apixaban 5 mg tablet 10 mg PO BID #64 tabs 10/24/20 [Rx Last Taken Unknown] bupropion HCl 75 mg tablet 75 mg PO DAILY 09/18/22 [History Last Taken Unknown] carvedilol 25 mg tablet 25 mg PO BID 09/18/22 [History Last Taken Unknown] Allergy/AdvReac Type Severity Reaction Status Date / Time Penicillins Allergy Itching Verified 09/18/22 16:29 Social History Smoking Status: Former smoker ROS ROS ED ROS Narrative Chest pain. Review of Systems ROS Unobtainable: Denies due to encephalopathy Constitutional Constitutional ED: Denies chills or fever(s) Eyes Eyes: Reports none ENT ENT ED: Denies ear pain Cardiovascular Cardiovascular: Reports as per HPI and chest pain; Denies palpitations or racing heartbeat Respiratory/Chest Respiratory/Chest: Reports cough Gastrointestinal Gastrointestinal: Denies abdominal pain Genitourinary Genitourinary ED: Denies dysuria Musculoskeletal Musculoskeletal: Denies arthralgias Integumentary Denies abscess Neurologic Neurologic: Denies headache(s) Psychiatric Psychiatric: Denies anxiety Endocrine Endocrinology: Denies cold intolerance Hematologic/Lymphatic Hematologic/Lymphatic: Denies easy bleeding Allergic/Immunologic Allergic/Immunologic ED: Denies mouth swelling or tongue swelling EXAM Physical Exam Narrative Exam Narrative: 67-year-old male vital signs stable afebrile. Pulse ox 95% on room air no hypoxia. H EENT exam unremarkable. Moist mucous membranes. Neck nontender. No JVD. No lymphadenopathy. Lungs clear to auscultation bilaterally. Heart regular rhythm rate about 75 no murmur. Chest wall minimal at worst tenderness. Worse when he coughs. No crepitance or subcu air. Abdomen soft nontender. Moving all 4 extremities. Calves are nontender without edema or cords. Equal symmetrical radial pulses. Back nontender. Neurologically is awake and alert with no focal motor deficits. Const Vital Signs: 09/18/22 16:29 09/18/22 18:30 09/18/22 18:30 Temperature 98.2 F Temperature Source Temporal Pulse Rate 75 72 Respiratory Rate 14 17 Respiratory Effort Blood Pressure 170/91 H 161/89 H Blood Pressure Mean 117 113 Pulse Ox 95 95 96 Oxygen Delivery Method Room Air Room Air Room Air 09/18/22 20:00 09/18/22 19:00 Temperature Temperature Source Pulse Rate 72 Respiratory Rate 18 Respiratory Effort Normal Blood Pressure 167/105 H Blood Pressure Mean 125 Pulse Ox 94 Oxygen Delivery Method Room Air Positive well nourished, well developed and obese; Negative for cachectic, contractures or unkempt General Appearance ED: well developed and NAD; Negative for unkempt, cachectic, contractures or pallor Nutritional Appearance: obese; Negative for cachectic HEENT Reports moist mucous membranes normocephalic and atraumatic; Negative for trauma or tenderness Eyes PERRL and EOMs intact bilaterally General Eye ED: Negative for pale conjunctiva or scleral icterus Neck no lymphadenopathy, supple and no JVD General: Negative for tenderness Chest Wall inspection of chest normal and palpation of chest normal Chest: Negative for tenderness Resp normal respiratory effort and clear to auscultation bilaterally Effort and Inspection: Negative for respiratory distress Auscultation: Negative for rales, rhonchi, wheezes or diminished lung sounds Cardio regular rate, regular rhythm, S1 normal heart sound, S2 normal heart sound and no murmurs Rate: Negative for bradycardia Rhythm: Negative for abnormal rhythm Peripheral Pulses: pulses 2+ throughout GI normal to inspection, nondistended, normoactive bowel sounds, soft to palpation, non-tender, non-distended and no masses Back/Spine no CVA tenderness and no thoracic nor lumbar tenderness General Back: Negative for CVA tenderness Cervical Spine: Negative for cervical spine tenderness Extremity normal to inspection General Extremety ED: Negative for edema or other findings General Extremity: Negative for edema or other findings Neuro oriented x3, CN's II-XII intact bilaterally and no sensory deficits noted Sensorium / Orientation: awake, alert, oriented to person, oriented to place and oriented to time; Negative for confused, lethargic or stuporous Motor Exam: strength 5/5 throughout Psych mental status grossly normal Appearance: Negative for unkempt Attitude: No agitated Mood & Affect: Negative for depressed, anxious or tearful Skin no rashes or lesions noted and no wounds General Skin Exam: Negative for jaundice or pallor Rashes: No rashes noted Trauma: Negative for abrasion Heart Score History: Slightly/Non-Suspicious ECG: Normal Age: >/= 65 years Risk Factors: 1 or 2 Risk Factors Troponin: </= Normal Limit Score: 3 MDM MDM MDM Narrative Medical decision making narrative: 67-year-old with atypical chest pain and very well could be musculoskeletal. He had a history of pulmonary emboli before currently is on no blood thinner. He will undergo a cardiac work-up. No clinically and on think this is cardiac. Is not exertional. D-dimer be obtained. Chest x-ray and labs. If the D-dimer is elevated he will need a CTA. Repeat exam patient is doing well at 9:18 PM. Will be discharged home with outpatient follow-up. Treated with Tylenol Motrin. Follow-up if not improving. Lab Data Attestation: I reviewed the patient's lab results. Lab results narrative: CBC shows a white count 9.5. H&H 11.5 and 33.1. Platelets are slightly low at 147. D-dimer is -0.45. Electrolytes unremarkable gap of 8 BUN and creatinine are 19 and 0.9. Glucose 117. Troponin is normal at 15. Second troponin 16 and normal also. Labs: Laboratory Results - last 24 hr 09/18/22 09/18/22 09/18/22 18:12 18:29 18:29 WBC 9.5 RBC 3.25 L Hgb 11.5 L Hct 33.1 L MCV 101.8 H MCH 35.4 H MCHC 34.7 RDW Std Deviation 50.4 H RDW Coeff of Justine 13.5 Plt Count 147 L MPV 8.4 Immature Gran % (Auto) 0.600 Neut % (Auto) 79.2 H Lymph % (Auto) 9.2 L [place] % (Auto) 10.3 H Eos % (Auto) 0.5 Baso % (Auto) 0.2 Absolute Neuts (auto) 7.5 Absolute Lymphs (auto) 0.87 Nucleated RBC % 0 D-Dimer Quant (PE/DVT) 0.45 Sodium 138 Potassium 3.7 Chloride 103 Carbon Dioxide 27.0 Anion Gap 8 BUN 19 H Creatinine 0.95 Estim Creat Clear Calc 82.57 Est GFR (MDRD) Af Amer 103 Est GFR (MDRD) Non-Af 85 BUN/Creatinine Ratio 20.1 H Glucose 117 H Calcium 9.3 Troponin I High Sens 15 09/18/22 20:37 WBC RBC Hgb Hct MCV MCH MCHC RDW Std Deviation RDW Coeff of Justine Plt Count MPV Immature Gran % (Auto) Neut % (Auto) Lymph % (Auto) [place] % (Auto) Eos % (Auto) Baso % (Auto) Absolute Neuts (auto) Absolute Lymphs (auto) Nucleated RBC % D-Dimer Quant (PE/DVT) Sodium Potassium Chloride Carbon Dioxide Anion Gap BUN Creatinine Estim Creat Clear Calc Est GFR (MDRD) Af Amer Est GFR (MDRD) Non-Af BUN/Creatinine Ratio Glucose Calcium Troponin I High Sens 16 Radiography Chest X-Ray - ED: 1 View, Read by ED Physician, Heart, Lungs, Mediastinum, Bony Structures, No Acute Disease, Chronic Changes and - (Atelectasis right base.) Diagnostic Testing: Clinical Impression(s) from Imaging Studies Chest X-Ray 09/18/22 18:33 IMPRESSION: Mild right middle lobe atelectasis or infiltrate. Electronically Signed: Dennis Dinero MD at 18:53 EST , Chest x-ray portable single view interpreted by myself shows atelectasis in the right base. Also read by the radiologist. Clinically this is not an infiltrate. Rhythm Strip Rhythm Strip: Sinus Rhythm Rate: 74 Ectopy: None EKG Initial EKG: Attestation: I personally reviewed and interpreted this EKG as follows: Interpretation: Sinus Rhythm and No Acute Injury Pattern Comments: Normal sinus rhythm rate of 74 no acute signs of OH or ischemia. Unchanged from an EKG of September of 2020. Prior EKG tracings: available for review Prior: Unchanged Discharge Plan Triage Chief Complaint: Chest Pain ED Provider: Daniel Carrillo Dx/Rx/DC Orders Prescriptions: No Action amlodipine 10 MG tablet 10 mg PO QHS colestipol 1 GM tablet 1 gm PO QHS escitalopram oxalate 20 MG tablet 20 mg PO DAILY vit C,G-Tn-mrkld-lutein-zeaxan 1 EACH capsule 1 cap PO BID cholecalciferol (vitamin D3) 25 MCG capsule 2,000 unit PO DAILY apixaban 5 MG tablet 10 mg PO BID Qty: 64 0RF Rx Instructions: take two twice a day starting this evening, take this dose through 10/26/20, on 10/27/20 start on one twice a day carvedilol 25 mg tablet 25 mg PO BID Label Comments: TAKE 1 TABLET BY MOUTH TWICE A DAY WITH MEALS bupropion HCl 75 mg tablet 75 mg PO DAILY Label Comments: START WITH TAKING 1 TABLET DAILY AND INCREASE TO 1 TABLET TWICE DAILY IF TOLERATED Primary Care Provider: Arleen Hwang Referrals: Arleen Hwang MD [Primary Care Provider] -
[2022-09-18] MEDS: Aspirin 81 MG TAB.CHEW 324 MG PO (18:28)
[2022-09-18 18:30] VITALS: BP 161/89; PULSE 72; RESP 17; O2SAT 95; O2SAT 96
--- NOTE | 2022-09-18 18:33 | RAD_ITS ---
STUDY: X-RAY CHEST REASON FOR EXAM: Male, 67 years old. chest pain TECHNIQUE: AP portable COMPARISON: None. FINDINGS: Mild subsegmental atelectasis or infiltrate in right middle lobe.. There is no demonstrated pleural abnormality. Heart is enlarged.. Normal mediastinum and brennen. Normal visualized pulmonary arteries. Normal visualized aortic arch and descending thoracic aorta. Normal visualized thoracic spine. Normal visualized ribs, clavicles, and shoulders. There is no demonstrated abnormality of the visualized soft tissue structures of the upper abdomen. RAD/Chest 1 View (Portable) IMPRESSION: Mild right middle lobe atelectasis or infiltrate. Electronically Signed: Dennis Dinero MD at 18:53 EST ,
[2022-09-18 18:37] LABS: Absolute Lymphocyte Count 0.87 X10^3/uL (0.83-4.51); Absolute Neutrophil Count 7.5 X10^3/uL (2.0-7.7); Basophil# 0.02 X10^3/uL; Basophil% 0.2 % (0-1); Eosinophil# 0.05 X10^3/uL; Eosinophils% 0.5 % (0-5); Hematocrit 33.1 % (40-54); Hemoglobin 11.5 g/dL (13.0-16.5); Lymphocyte # 0.87 X10^3/ul (0.83-4.51); Lymphocyte % 9.2 % (19-41); Mean Corp Hgb Conc 34.7 g/dL (32-36); Mean Corpuscular Hgb 35.4 pg (27.0-32.0); Mean Corpuscular Volume 101.8 fL (80-94); Mean Platelet Vol. 8.4 fl (6.2-12.0); Monocyte# 0.97 X10^3/uL; Monocyte% 10.3 % (0-10); NRBC Flagged by Analyzer 0 % (0-5); Neutrophil # 7.49 X10^3/uL (2.7-7.7); Neutrophil % 79.2 % (47-70); Platelet Count 147 K/mm3 (150-450); RBC Distribution Width CV 13.5 % (11.6-14.6); RBC Distribution Width SD 50.4 fl (35.1-43.9); Red Blood Count 3.25 M/mm3 (4.6-6.2); White Blood Count 9.5 K/mm3 (4.4-11.0)
[2022-09-18 18:38] LABS: POSITIVE COUNT NO; POSITIVE DIFFERENTIAL NO; POSITIVE MORPHOLOGY NO
[2022-09-18 18:58] LABS: Anion Gap 8 (5-15); BUN 19 mg/dL (7-18); BUN/Creat Ratio 20.1 RATIO (10-20); Calcium,Total 9.3 mg/dL (8.5-10.1); Chloride 103 mmol/L (98-107); Creatinine, Serum 0.95 mg/dL (0.70-1.30); EST Glomerular Filtration Rate 85 mL/min (>60); Est Glom Filt Rate - Afr Amer 103 mL/min (>60); Estimated Creatinine Clearance 82.57 ml/min; Glucose 117 mg/dL (74-106); Potassium 3.7 mmol/L (3.5-5.1); Sodium Level 138 mmol/L (136-145); Troponin-I HS (w/2H Reflex) 15 pg/mL (3.0-78.0)
[2022-09-18 19:04] LABS: D-Dimer Quantitative (DVT/PE) 0.45 FEU/ug/m (0.27-0.49)
[2022-09-18 20:00] VITALS: BP 167/105; PULSE 72; RESP 18; O2SAT 94
[2022-09-18 20:37] LABS: Reflex Troponin-HS? (from REC) Y
[2022-09-18 21:01] LABS: Troponin-I HS 16 pg/mL (3.0-78.0)
[2022-09-18 21:26] VITALS: RESP 18
== END 2022-09-18 21:30 | disposition home or self-care (01) ==
PROVIDERS: Emergency Provider Emergency Medicine; PCP Internal Medicine; Visit Provider Emergency Medicine
DX: R07.9 Chest pain, unspecified (principal); Z87.891 Personal history of nicotine dependence; Z86.16 Personal history of COVID-19; Z86.711 Personal history of pulmonary embolism; E66.9 Obesity, unspecified
CPT/HCPCS: 71045; 80048; 84484; 85025; 85379; 93005; 99285; A4216

== ENCOUNTER 2022-09-21 15:01 | Emergency (ER) | payer MEDICARE, SELFPAY ==
[2022-09-21 15:05] VITALS: BP 158/90; PULSE 58; RESP 18; TEMP 36.3; O2SAT 97; BMI 44.6
--- NOTE | 2022-09-21 15:36 | EKG12_ITS ---
Test Reason : CP/SOB Blood Pressure : / mmHG Vent. Rate : 058 BPM Atrial Rate : 000 BPM P-R Int : 000 ms QRS Dur : 090 ms QT Int : 418 ms P-R-T Axes : 000 022 -09 degrees QTc Int : 410 ms Sinus rhythm Abnormal ECG Confirmed by KAROLINE VERDE, SARABJIT ([id number]), state editor MARTY WASHINGTON ([id number]) on 09/24/2022 11:23:15 AM Referred By: LILI Confirmed By:SARABJIT RAMEY MD
--- NOTE | 2022-09-21 15:52 | EDS_ITS ---
HPI History of Present Illness Chief Complaint: Chest Pain Detail of Chief Complaint: Pleuritic chest pain with shortness of breath Informant: patient Onset/Context/Timing Onset: Days Activity at onset: sudden Timing: Continuous and Waxes and wanes Quality: Positive for - (Pleuritic and sharp) Location: Substernal Current Severity: Mild Maximum Severity: Moderate Worsened By: Breathing; Not Worsened By Exertion, Movement of Arm, Movement of Torso, Eating or Palpation Relieved By: Nothing Associated Symptoms: Positive for Dyspnea; Negative for Nausea, Vomiting, Diaphoresis, Cough, Fever, Lightheadedness, Acid Reflux or Palpitations Narrative Narrative: Patient is a 67-year-old male with history of hypertension, JOSE, hypertension who has history of PE due to COVID September 2020. Patient was seen on Saturday. Patient's work-up at that time was negative including troponin and D-dimer. Patient reports no improvement after he was placed on NSAID. Patient presents because of dyspnea, dyspnea on exertion and pleuritic chest pain. Patient's risk factors are prior PE, active prostate cancer and decreased mobility. Patient is presently not on an anticoagulant. He is probably bradycardic since he is on a beta-royal. Prior Similar Symptoms: Yes, With Prior Angina and With Prior PE CVD Risk Factors: Positive for Hypertension, Family History 1' </=55 and Smoking; Negative for Diabetes or Hypercholesterolemia PE Risk Factors: Positive for Recent Immobilization, Prior DVT or PE and Cancer; Negative for Recent Travel/Surgery or OCP + Smoking + >/=35 TAD Risk Factors: Positive for Hypertension; Negative for Marfan's Syndrome or Family History PFSH [facility] Home Medications amlodipine 10 mg tablet 10 mg PO QHS 10/14/19 [History Last Taken 10/17/20] colestipol 1 gram tablet 1 gm PO QHS 10/14/19 [History Last Taken 10/16/20] escitalopram oxalate 20 mg tablet 20 mg PO DAILY 10/14/19 [History Last Taken 10/17/20] vit C 250 mg-vit E 90 mg-zinc 40 mg-copper 1 [id number]-[id number] capsule 1 cap PO BID eye health 10/14/19 [History Last Taken 10/17/20] cholecalciferol (vitamin D3) 25 mcg (1,000 unit) capsule 2,000 unit PO DAILY 10/17/20 [History Last Taken 10/17/20] apixaban 5 mg tablet 10 mg PO BID #64 tabs 10/24/20 [Rx Last Taken Unknown] bupropion HCl 75 mg tablet 75 mg PO DAILY 09/18/22 [History Last Taken Unknown] carvedilol 25 mg tablet 25 mg PO BID 09/18/22 [History Last Taken Unknown] doxycycline monohydrate 100 mg capsule 100 mg PO BID #14 CAPSULES 09/21/22 [Rx Last Taken Unknown] hydrocodone-acetaminophen 5-325mg 5mg-325mg 1 tab PO Q6H PRN PRN Pain 3 days #10 TABLETS 09/21/22 [Rx Last Taken Unknown] prednisone 20 mg tablet 12 mg PO DAILY #15 TABLETS 09/21/22 [Rx Last Taken Unknown] Allergy/AdvReac Type Severity Reaction Status Date / Time Penicillins Allergy Itching Verified 09/21/22 15:05 Social History (Updated 09/21/22 @ 15:[address] Jl Erazo MD) household members: spouse Smoking Status: Former smoker substance use type: does not use ROS ROS ED Constitutional Constitutional ED: Denies chills, fever(s), subjective, sweats or weight loss Eyes Eyes: Reports none; Denies blurry vision, change in vision or diplopia ENT ENT ED: Denies ear pain, rhinorrhea or sore throat Cardiovascular Cardiovascular: Reports as per HPI; Denies orthopnea or paroxysmal nocturnal dyspnea Respiratory/Chest Respiratory/Chest: Reports dyspnea and dyspnea on exertion; Denies cough, orthopnea, paroxysmal nocturnal dyspnea or sputum Gastrointestinal Gastrointestinal: Denies abdominal pain, constipation, diarrhea, melena, nausea or vomiting Genitourinary Genitourinary ED: Denies dysuria, hematuria or urinary frequency Musculoskeletal Musculoskeletal: Denies arthralgias, back pain, myalgias or neck pain Integumentary Reports rash and other Details: Venous stasis dermatitis lower extremity ; Denies abscess or Abrasions Neurologic Neurologic: Denies headache(s) or paresthesias Psychiatric Psychiatric: Denies anxiety or depression Endocrine Endocrinology: Denies polydipsia or polyphagia Hematologic/Lymphatic Hematologic/Lymphatic: Denies easy bleeding, easy bruising or lymphadenopathy EXAM Physical Exam Const Vital Signs: 09/21/22 15:05 Temperature 97.4 F L Temperature Source Temporal Pulse Rate 58 L Respiratory Rate 18 Blood Pressure 158/90 H Blood Pressure Mean 112 Pulse Ox 97 Oxygen Delivery Method Room Air Positive well nourished, well developed and obese General Appearance ED: well developed and NAD; Negative for pallor Nutritional Appearance: obese HEENT Reports TM's clear and moist mucous membranes HEENT Narrative: Posterior pharynx unremarkable. normocephalic and atraumatic Tympanic Membrane ED: Yes TM's clear Eyes PERRL and EOMs intact bilaterally General Eye ED: Negative for pale conjunctiva or scleral icterus Neck no lymphadenopathy, supple and no JVD Chest Wall inspection of chest normal and palpation of chest normal Resp No normal respiratory effort and No clear to auscultation bilaterally Cardio regular rate, regular rhythm, S1 normal heart sound, S2 normal heart sound and no murmurs GI normal to inspection, nondistended, normoactive bowel sounds, soft to palpation, non-tender, non-distended and no masses; Negative for hepatosplenomegaly Back/Spine no CVA tenderness Cervical Spine: Negative for cervical spine tenderness Extremity Negative for normal to inspection Extremity Narrative: Due to stasis dermatitis with edema. Edema is pitting Neuro oriented x3, CN's II-XII intact bilaterally and no sensory deficits noted Sensorium / Orientation: awake and alert Motor Exam: strength 5/5 throughout Psych mental status grossly normal Skin Skin Narrative: Venous stasis dermatitis right and left leg General Skin Exam: Negative for jaundice or pallor MDM MDM MDM Narrative Medical decision making narrative: Frontal diagnosis would include pleurisy, PE, atypical cardiac chest pain versus pulmonary etiology i.e. pneumonia. EKG, appropriate blood work including troponin and D-dimer were obtained. Only 1 troponin was obtained since he was seen on Saturday and has had continuous pain. Lab Data Attestation: I reviewed the patient's lab results. Labs: Laboratory Results - last 24 hr 09/21/22 09/21/22 09/21/22 15:45 15:45 15:45 WBC 6.9 RBC 3.34 L Hgb 11.9 L Hct 35.2 L MCV 105.4 H MCH 35.6 H MCHC 33.8 RDW Std Deviation 52.8 H RDW Coeff of Justine 13.6 Plt Count 156 MPV 8.3 Immature Gran % (Auto) 0.400 Neut % (Auto) 66.3 Lymph % (Auto) 15.5 L [place] % (Auto) 15.8 H Eos % (Auto) 1.6 Baso % (Auto) 0.4 Absolute Neuts (auto) 4.6 Absolute Lymphs (auto) 1.07 Nucleated RBC % 0 D-Dimer Quant (PE/DVT) 0.54 H* Sodium 141 Potassium 3.7 Chloride 106 Carbon Dioxide 28.0 Anion Gap 7 BUN 16 Creatinine 0.84 Estim Creat Clear Calc 93.38 Est GFR (MDRD) Af Amer 118 Est GFR (MDRD) Non-Af 98 BUN/Creatinine Ratio 19.1 Glucose 124 H Lactic Acid Calcium 9.4 Troponin I High Sens 13 09/21/22 15:45 WBC RBC Hgb Hct MCV MCH MCHC RDW Std Deviation RDW Coeff of Justine Plt Count MPV Immature Gran % (Auto) Neut % (Auto) Lymph % (Auto) [place] % (Auto) Eos % (Auto) Baso % (Auto) Absolute Neuts (auto) Absolute Lymphs (auto) Nucleated RBC % D-Dimer Quant (PE/DVT) Sodium Potassium Chloride Carbon Dioxide Anion Gap BUN Creatinine Estim Creat Clear Calc Est GFR (MDRD) Af Amer Est GFR (MDRD) Non-Af BUN/Creatinine Ratio Glucose Lactic Acid 1.1 Calcium Troponin I High Sens Radiography Chest X-Ray - ED: 2 View, Read by ED Physician (Chronic changes. The right middle lobe infiltrate that was noted on the has resolved. Since patient is coughing up green-colored sputum we will treat for pneumonia.), Normal, Heart, Lungs (The infiltrate was noted in the right middle lobe has resolved.), Mediastinum, Bony Structures and Chronic Changes Diagnostic Testing: Clinical Impression(s) from Imaging Studies Chest X-Ray 09/21/22 15:53 IMPRESSION: There are no acute findings. Resolution of the right lung findings. Electronically Signed: Mal Lala MD at 16:01 EST , Rhythm Strip Rhythm Strip: Sinus Rhythm Rate: 55 Ectopy: None EKG Initial EKG: Attestation: I personally reviewed and interpreted this EKG as follows: Interpretation: Sinus Bradycardia (Rate is 58. It is a sinus rhythm not junctional as the computer read. ID interval is less than 20 ms. Cures duration 90 ms for QT duration 4 and 18 ms. [place] is normal.) Discharge Plan Triage Chief Complaint: Chest Pain ED Provider: Jl Erazo Dx/Rx/DC Orders Clinical Impression: Right middle lobe pulmonary infiltrate, Hypertension, Community acquired pneumonia, Pleurisy Instructions: ED Pleurisy, ED Pneumonia (Adult) Prescriptions: New hydrocodone-acetaminophen [hydrocodone-acetaminophen] 5-325 mg tablet 1 tab PO Q6H PRN PRN (Reason: Pain) 3 Days Qty: 10 0RF prednisone 20 mg tablet 12 mg PO DAILY Qty: 15 0RF doxycycline monohydrate 100 mg capsule 100 mg PO BID Qty: 14 0RF No Action amlodipine 10 MG tablet 10 mg PO QHS colestipol 1 GM tablet 1 gm PO QHS escitalopram oxalate 20 MG tablet 20 mg PO DAILY vit C,R-Hh-nakef-lutein-zeaxan 1 EACH capsule 1 cap PO BID cholecalciferol (vitamin D3) 25 MCG capsule 2,000 unit PO DAILY apixaban 5 MG tablet 10 mg PO BID Qty: 64 0RF Rx Instructions: take two twice a day starting this evening, take this dose through 10/26/20, on 10/27/20 start on one twice a day carvedilol 25 mg tablet 25 mg PO BID Label Comments: TAKE 1 TABLET BY MOUTH TWICE A DAY WITH MEALS bupropion HCl 75 mg tablet 75 mg PO DAILY Label Comments: START WITH TAKING 1 TABLET DAILY AND INCREASE TO 1 TABLET TWICE DAILY IF TOLERATED Primary Care Provider: Alreen Hwang Referrals: Arleen Hwang MD [Primary Care Provider] - 3-5 Days if not improving Disposition Disposition: Home, Self Care
[2022-09-21 15:53] LABS: Absolute Lymphocyte Count 1.07 X10^3/uL (0.83-4.51); Absolute Neutrophil Count 4.6 X10^3/uL (2.0-7.7); Basophil# 0.03 X10^3/uL; Basophil% 0.4 % (0-1); Eosinophil# 0.11 X10^3/uL; Eosinophils% 1.6 % (0-5); Hematocrit 35.2 % (40-54); Hemoglobin 11.9 g/dL (13.0-16.5); Lymphocyte # 1.07 X10^3/ul (0.83-4.51); Lymphocyte % 15.5 % (19-41); Mean Corp Hgb Conc 33.8 g/dL (32-36); Mean Corpuscular Hgb 35.6 pg (27.0-32.0); Mean Corpuscular Volume 105.4 fL (80-94); Mean Platelet Vol. 8.3 fl (6.2-12.0); Monocyte# 1.09 X10^3/uL; Monocyte% 15.8 % (0-10); NRBC Flagged by Analyzer 0 % (0-5); Neutrophil # 4.58 X10^3/uL (2.7-7.7); Neutrophil % 66.3 % (47-70); Platelet Count 156 K/mm3 (150-450); RBC Distribution Width CV 13.6 % (11.6-14.6); RBC Distribution Width SD 52.8 fl (35.1-43.9); Red Blood Count 3.34 M/mm3 (4.6-6.2); White Blood Count 6.9 K/mm3 (4.4-11.0)
--- NOTE | 2022-09-21 15:53 | RAD_ITS ---
STUDY: X-RAY CHEST REASON FOR EXAM: Male, 67 years old. Pleuritic chest pain Technologist Notes CP AND SOB. COVID POSITIVE YESTERDAY, HOME TEST. PRODUCTIVE COUGH. TECHNIQUE: XR Chest 2 Views COMPARISON: 3 days ago. FINDINGS: There is atherosclerotic calcification of the aortic arch with tortuosity. There are diffuse degenerative changes of the visualized thoracic spine. Normal visualized ribs, clavicles, and shoulders. There is no demonstrated pleural abnormality. Normal size heart. Normal mediastinum and brennen. Normal visualized pulmonary arteries. There is no demonstrated abnormality of the visualized soft tissue structures of the upper abdomen. RAD/Chest PA and Lateral IMPRESSION: There are no acute findings. Resolution of the right lung findings. Electronically Signed: Mal Lala MD at 16:01 EST ,
[2022-09-21 16:06] LABS: D-Dimer Quantitative (DVT/PE) 0.54 FEU/ug/m (0.27-0.49)
[2022-09-21 16:15] LABS: Anion Gap 7 (5-15); BUN 16 mg/dL (7-18); BUN/Creat Ratio 19.1 RATIO (10-20); Calcium,Total 9.4 mg/dL (8.5-10.1); Chloride 106 mmol/L (98-107); Creatinine, Serum 0.84 mg/dL (0.70-1.30); EST Glomerular Filtration Rate 98 mL/min (>60); Est Glom Filt Rate - Afr Amer 118 mL/min (>60); Estimated Creatinine Clearance 93.38 ml/min; Glucose 124 mg/dL (74-106); Potassium 3.7 mmol/L (3.5-5.1); Sodium Level 141 mmol/L (136-145); Troponin-I HS 13 pg/mL (3.0-78.0)
[2022-09-21 16:17] LABS: Lactic Acid 1.1 mmol/L (0.4-1.9)
[2022-09-21] MEDS: predniSONE 20 MG Tablet 60 MG PO (16:48)
[2022-09-21] MEDS: Doxycycline 100 MG CAPSULE PO (16:48)
[2022-09-21] MEDS: HYDROcodone Bitartrate/Apap 5/325 Tablet PO (16:48)
[2022-09-21 16:54] VITALS: PULSE 59; RESP 20; O2SAT 97
== END 2022-09-21 16:55 | disposition home or self-care (01) ==
PROVIDERS: Emergency Provider Emergency Medicine; PCP Internal Medicine; Visit Provider Emergency Medicine
DX: J18.9 Pneumonia, unspecified organism (principal); R09.1 Pleurisy; I10 Essential (primary) hypertension; E66.9 Obesity, unspecified; Z79.899 Other long term (current) drug therapy; Z87.891 Personal history of nicotine dependence; Z86.16 Personal history of COVID-19; Z86.711 Personal history of pulmonary embolism
CPT/HCPCS: 71046; 80048; 83605; 84484; 85025; 85379; 87811; 93005; 99285; A4216

== ENCOUNTER 2022-09-30 15:06 | Observation (INO) | payer MEDICARE, SELFPAY ==
[2022-09-30 15:06] VITALS: BP 116/71; PULSE 64; RESP 16; TEMP 36.4; O2SAT 98; BMI 43.2
--- NOTE | 2022-09-30 15:16 | EKG12_ITS ---
Test Reason : cp Blood Pressure : / mmHG Vent. Rate : 058 BPM Atrial Rate : 058 BPM P-R Int : 276 ms QRS Dur : 104 ms QT Int : 442 ms P-R-T Axes : 087 017 -12 degrees QTc Int : 433 ms Sinus bradycardia with 1st degree A-V block Nonspecific ST and T wave abnormality Abnormal ECG Confirmed by CHERI VERDE, WALLY ([id number]), content editor MARTY WASHINGTON ([id number]) on 10/03/2022 8:47:32 AM Referred By: German Confirmed By:WALLY ALONZO MD
--- NOTE | 2022-09-30 15:55 | RAD_ITS ---
INDICATION: chest pain EXAMINATION/TECHNIQUE: X-RAY - portable upright AP chest x-ray COMPARISON: 09/21/2022 FINDINGS: LINES/DEVICES: None. LUNGS: No consolidation, edema or effusion. No pneumothorax. MEDIASTINUM AND CARDIOVASCULAR STRUCTURES: Cardiac silhouette not enlarged. Central airways and mediastinal contour are unremarkable. BONES AND SOFT TISSUES: Unremarkable. RAD/Chest 1 View (Portable) IMPRESSION: No radiographic evidence of acute cardiopulmonary disease. Electronically Signed: Jamison Torres MD at 16:26 EST ,
[2022-09-30 15:59] LABS: Absolute Lymphocyte Count 1.38 X10^3/uL (0.83-4.51); Absolute Neutrophil Count 5.3 X10^3/uL (2.0-7.7); Basophil# 0.03 X10^3/uL; Basophil% 0.4 % (0-1); Eosinophil# 0.12 X10^3/uL; Eosinophils% 1.5 % (0-5); Hematocrit 35.3 % (40-54); Hemoglobin 11.8 g/dL (13.0-16.5); Lymphocyte # 1.38 X10^3/ul (0.83-4.51); Lymphocyte % 17.3 % (19-41); Mean Corp Hgb Conc 33.4 g/dL (32-36); Mean Corpuscular Hgb 34.8 pg (27.0-32.0); Mean Corpuscular Volume 104.1 fL (80-94); Mean Platelet Vol. 8.1 fl (6.2-12.0); Monocyte# 1.05 X10^3/uL; Monocyte% 13.2 % (0-10); NRBC Flagged by Analyzer 0 % (0-5); Neutrophil # 5.33 X10^3/uL (2.7-7.7); Neutrophil % 66.7 % (47-70); Platelet Count 198 K/mm3 (150-450); RBC Distribution Width CV 13.6 % (11.6-14.6); RBC Distribution Width SD 52.2 fl (35.1-43.9); Red Blood Count 3.39 M/mm3 (4.6-6.2)
--- NOTE | 2022-09-30 16:04 | CT_ITS ---
STUDY: CTA CHEST REASON FOR EXAM: Male, 67 years old. Chest pain x10 days -- +covid 09/20 RADIATION DOSAGE (If Supplied By Facility): CTDIvol = ( 23.12 ) mGy, DLP = ( 809.66 ) mGycm TECHNIQUE: The examination was performed with the intravenous administration of 100mL Isovue-370. Post-processing of the angiographic images was performed, with multiplanar reformation and 3D reconstruction. Individualized dose optimization techniques were used for this CT. COMPARISON: 10/17/2020 FINDINGS: Normal enhancement of the main pulmonary artery and right and left pulmonary arteries. Normal enhancement of the bilateral peripheral pulmonary arteries. There is no demonstrated pulmonary embolism. Stable 4.4 cm aneurysmal dilatation ascending aorta. There is no demonstrated aortic dissection. Normal heart and pericardium. Normal mediastinum. Normal hilar regions. Normal visualized trachea and bronchi. Bibasilar dependent and/or fibrotic changes. No consolidations or mass lesions. No pleural effusions. Normal chest wall structures. Moderate T7 compression fracture, new since the prior study but with evidence of sclerosis at the superior endplate. No acute findings in the upper abdomen. CT/CTA Chest W/WO Contrast IMPRESSION: Normal CTA chest examination, without a demonstrated pulmonary embolism or arterial dissection. No acute pulmonary findings. Electronically Signed: Jamison Torres MD at 17:39 EST ,
--- NOTE | 2022-09-30 16:05 | EDS_ITS ---
HPI History of Present Illness Chief Complaint: Chest Pain Narrative Narrative: 67-year-old male presenting with chest pain. He states he has had this since before Thanks. He came to the ER and was seen for chest pain and ultimately discharged with he states he ultimately went home and tested himself for COVID and was positive. He came back to the ER couple days later and had a chest pain work-up again. He was discharged home with oxycodone. He states he followed up with his PCP was given [place]. He states he is out of his medications and he still having pain. He does admit to mild shortness of breath. He has history of PE with COVID-19 in 2019. He states the same is similar. Its bilateral anterior and posterior. It hurts when he takes a deep breath. PFSH PFSH Home Medications amlodipine 10 mg tablet 10 mg PO QHS 10/14/19 [History Last Taken 10/17/20] colestipol 1 gram tablet 1 gm PO QHS 10/14/19 [History Last Taken 10/16/20] escitalopram oxalate 20 mg tablet 20 mg PO DAILY 10/14/19 [History Last Taken 10/17/20] vit C 250 mg-vit E 90 mg-zinc 40 mg-copper 1 xs-iifqht-mqlxau capsule 1 cap PO BID eye health 10/14/19 [History Last Taken 10/17/20] cholecalciferol (vitamin D3) 25 mcg (1,000 unit) capsule 2,000 unit PO DAILY 10/17/20 [History Last Taken 10/17/20] apixaban 5 mg tablet 10 mg PO BID #64 tabs 10/24/20 [Rx Last Taken Unknown] bupropion HCl 75 mg tablet 75 mg PO DAILY 09/18/22 [History Last Taken Unknown] carvedilol 25 mg tablet 25 mg PO BID 09/18/22 [History Last Taken Unknown] doxycycline monohydrate 100 mg capsule 100 mg PO BID #14 CAPSULES 09/21/22 [Rx Last Taken Unknown] hydrocodone-acetaminophen 5-325mg 5mg-325mg 1 tab PO Q6H PRN PRN Pain 3 days #10 TABLETS 09/21/22 [Rx Last Taken Unknown] prednisone 20 mg tablet 12 mg PO DAILY #15 TABLETS 09/21/22 [Rx Last Taken Unknown] Allergy/AdvReac Type Severity Reaction Status Date / Time Penicillins Allergy Itching Verified 09/30/22 15:09 Social History household members: spouse Smoking Status: Former smoker substance use type: does not use ROS ROS ED Constitutional Constitutional ED: Denies chills or fever(s) Eyes Eyes: Denies blurry vision or change in vision ENT ENT ED: Denies rhinorrhea or sore throat Cardiovascular Cardiovascular: Reports as per HPI Respiratory/Chest Respiratory/Chest: Reports dyspnea and dyspnea on exertion; Denies cough Gastrointestinal Gastrointestinal: Denies abdominal pain Genitourinary Genitourinary ED: Denies dysuria or hematuria Musculoskeletal Musculoskeletal: Denies arthralgias or back pain Integumentary Denies abscess or Abrasions Neurologic Neurologic: Denies headache(s) or paresthesias Psychiatric Psychiatric: Denies anxiety or depression EXAM Physical Exam Const Vital Signs: 09/30/22 15:06 Temperature 97.6 F L Temperature Source Temporal Pulse Rate 64 Respiratory Rate 16 Blood Pressure 116/71 Blood Pressure Mean 86 Pulse Ox 98 Oxygen Delivery Method Room Air Positive well nourished General Appearance ED: NAD HEENT Reports moist mucous membranes Eyes PERRL and EOMs intact bilaterally General Eye ED: Negative for pale conjunctiva or scleral icterus Chest Wall inspection of chest normal Resp normal respiratory effort and clear to auscultation bilaterally Auscultation: Negative for rales, rhonchi or wheezes Cardio regular rate and regular rhythm GI normal to inspection, nondistended, normoactive bowel sounds Neuro oriented x3 and CN's II-XII intact bilaterally Sensorium / Orientation: awake and alert Psych mental status grossly normal Skin no rashes or lesions noted Heart Score History: Slightly/Non-Suspicious ECG: Normal Age: >/= 65 years Risk Factors: 1 or 2 Risk Factors Score: 3 MDM MDM MDM Narrative Medical decision making narrative: Patient presenting with chest pain. He has had this since he had COVID-19 in late August. Its been constant. His CBC today shows no leukocytosis. His hemoglobin is stable at 11.8, hematocrit 35.3, platelets 198. Renal function and electrolytes are normal with exception of a potassium of 3.3. High- sensitivity troponin today is 14 and with constant pain for over a week did not think he needs a delta troponin. I obtained a chest x-ray which on my interpretation shows no acute cardiopulmonary process and the radiologist interprets this and agrees. His EKG shows sinus bradycardia with a first-degree AV block. There is no evidence of ST elevation or depression. Patient wishes to have a CT of the chest to rule out blood clot which was performed. There is no evidence of PE or dissection, and there is no evidence of infiltrate. Patient was medicated with morphine and Zofran to help with his pain. After that nursing did state to me that he dropped his O2 sats. He was also laying back and sleeping and normally wears CPAP for this. Patient was ambulated with pulse ox and dropped to 86% on room air. Given this I think he will need to be admitted to the hospital. Impression: 1. Chest pain 2. Dyspnea 3. Hypoxic respiratory failure 4. Hypokalemia Lab Data Attestation: I reviewed the patient's lab results. Labs: Laboratory Results - last 24 hr 09/30/22 09/30/22 15:42 15:42 WBC 8.0 RBC 3.39 L Hgb 11.8 L Hct 35.3 L MCV 104.1 H MCH 34.8 H MCHC 33.4 RDW Std Deviation 52.2 H RDW Coeff of Justine 13.6 Plt Count 198 MPV 8.1 Immature Gran % (Auto) 0.900 Neut % (Auto) 66.7 Lymph % (Auto) 17.3 L [place] % (Auto) 13.2 H Eos % (Auto) 1.5 Baso % (Auto) 0.4 Absolute Neuts (auto) 5.3 Absolute Lymphs (auto) 1.38 Nucleated RBC % 0 Sodium 139 Potassium 3.3 L Chloride 102 Carbon Dioxide 30.0 Anion Gap 7 BUN 18 Creatinine 0.84 Estim Creat Clear Calc 93.38 Est GFR (MDRD) Af Amer 117 Est GFR (MDRD) Non-Af 97 BUN/Creatinine Ratio 21.4 H Glucose 116 H Calcium 8.9 Troponin I High Sens 14 Radiography Diagnostic Testing: Clinical Impression(s) from Imaging Studies Chest X-Ray 09/30/22 15:55 IMPRESSION: No radiographic evidence of acute cardiopulmonary disease. Electronically Signed: Jamison Torres MD at 16:26 EST , Chest CTA 09/30/22 16:04 IMPRESSION: Normal CTA chest examination, without a demonstrated pulmonary embolism or arterial dissection. No acute pulmonary findings. Electronically Signed: Jamison Torres MD at 17:39 EST Reading Location ID and State: [address] [place] [address] Tel , Service support , Discharge Plan Triage Chief Complaint: Chest Pain ED Provider: Edwardo Henry Dx/Rx/DC Orders Prescriptions: No Action amlodipine 10 MG tablet 10 mg PO QHS colestipol 1 GM tablet 1 gm PO QHS escitalopram oxalate 20 MG tablet 20 mg PO DAILY vit C,E-Ll-oledt-lutein-zeaxan 1 EACH capsule 1 cap PO BID cholecalciferol (vitamin D3) 25 MCG capsule 2,000 unit PO DAILY apixaban 5 MG tablet 10 mg PO BID Qty: 64 0RF Rx Instructions: take two twice a day starting this evening, take this dose through 10/26/20, on 10/27/20 start on one twice a day carvedilol 25 mg tablet 25 mg PO BID Label Comments: TAKE 1 TABLET BY MOUTH TWICE A DAY WITH MEALS bupropion HCl 75 mg tablet 75 mg PO DAILY Label Comments: START WITH TAKING 1 TABLET DAILY AND INCREASE TO 1 TABLET TWICE DAILY IF TOLERATED hydrocodone-acetaminophen [hydrocodone-acetaminophen] 5-325 mg tablet 1 tab PO Q6H PRN PRN (Reason: Pain) 3 Days Qty: 10 0RF prednisone 20 mg tablet 12 mg PO DAILY Qty: 15 0RF doxycycline monohydrate 100 mg capsule 100 mg PO BID Qty: 14 0RF Primary Care Provider: Arleen Hwang Referrals: Arleen Hwang MD [Primary Care Provider] -
[2022-09-30 16:21] LABS: Anion Gap 7 (5-15); BUN 18 mg/dL (7-18); BUN/Creat Ratio 21.4 RATIO (10-20); Calcium,Total 8.9 mg/dL (8.5-10.1); Chloride 102 mmol/L (98-107); Creatinine, Serum 0.84 mg/dL (0.70-1.30); EST Glomerular Filtration Rate 97 mL/min (>60); Est Glom Filt Rate - Afr Amer 117 mL/min (>60); Estimated Creatinine Clearance 93.38 ml/min; Glucose 116 mg/dL (74-106); Potassium 3.3 mmol/L (3.5-5.1); Sodium Level 139 mmol/L (136-145); Troponin-I HS 14 pg/mL (3.0-78.0)
[2022-09-30] MEDS: Morphine 4 MG/ML Syringe IV (16:57)
[2022-09-30] MEDS: Ondansetron 4 MG/2 ML Vial IV (16:57)
[2022-09-30 19:06] VITALS: BP 142/85; PULSE 62; RESP 25; O2SAT 97
[2022-09-30 19:09] VITALS: O2SAT 92
--- NOTE | 2022-09-30 20:22 | PCM.HP.STD ---
HPI - General General Date of Admission: 09/30/22 Date of Service: 09/30/22 Chief Complaint: chest pain HPI Narrative ZIYAD BAER, is a 67 M with a significant history of prostate cancer currently under surveillance; bladder cancer s/p resection; hypertension; PE associated with COVID who presents to the emergency department with chest pain that started on before 2021. The chest pain is substernal. It radiates to his back. His pain worsens with movement and sitting up. His pain improves with lying down His chest pain is persistent but slightly improved. Associated with his symptoms is shortness of breath. During this time he has tested positive for COVID. He was diagnosed with pneumonia and pleurisy and has completed a course of treatment He reported that about 2 months ago he started new medication all Otezla for psoriasis. Otelza made him short of breath so he quit taking about 2 weeks ago. At the emergency department patient was found to be hypoxic; and that was initially attributed to morphine. However with ambulation patient oxygen saturation was 86% so a decision was made for patient to stay at the hospital. [facility], [facility] Medical History Hypertension Psoriasis Home Medications amlodipine 10 mg tablet 10 mg PO QHS 10/14/19 [History Last Taken 10/17/20] colestipol 1 gram tablet 1 gm PO QHS 10/14/19 [History Last Taken 10/16/20] escitalopram oxalate 20 mg tablet 20 mg PO DAILY 10/14/19 [History Last Taken 10/17/20] vit C 250 mg-vit E 90 mg-zinc 40 mg-copper 1 oe-lnptox-mprfhr capsule 1 cap PO BID eye health 10/14/19 [History Last Taken 10/17/20] bupropion HCl 75 mg tablet 75 mg PO DAILY 09/18/22 [History Last Taken Unknown] carvedilol 25 mg tablet 25 mg PO BID 09/18/22 [History Last Taken Unknown] losartan 100 mg tablet 100 mg PO DAILY 09/30/22 [History Last Taken Unknown] Allergy/AdvReac Type Severity Reaction Status Date / Time Penicillins Allergy Itching Verified 09/30/22 15:09 Family History Other Brain aneurysm Heart disease Prostate CA Surgical History History of carpal tunnel surgery History of herniorrhaphy Hx of appendectomy Hx of cholecystectomy Social History household members: spouse Smoking Status: Former smoker substance use type: does not use ROS ROS Narrative Pertinent positives and pertinent negatives as noted in HPI. All other systems were reviewed and are negative Vital Signs Vital Signs Vital Signs: 09/30/22 15:06 Temperature 97.6 F L Temperature Source Temporal Pulse Rate 64 Respiratory Rate 16 Blood Pressure 116/71 Blood Pressure Mean 86 Pulse Ox 98 Oxygen Delivery Method Room Air Weight Weight: 140.614 kg Body Mass Index (BMI) 43.2 Physical Exam Narrative Physical exam: General: Well-nourished, well-developed. Head: Normocephalic, atraumatic, no tenderness Eyes: Vision is grossly intact. EOMI ENT, no trauma, moist mucous membranes, no rhinorrhea Neck: Nontender, No thyromegaly. CVS: Regular rate and rhythm. S1-S2 present. No murmur, gallop or rub. Respiratory : clear to auscultation bilaterally, chest wall nontender, no wheezing Abdomen: Soft, nontender, nondistended, normal bowel sounds, no masses : Deferred Back: Nontender, no CVA tenderness,. Extremities: Nontender full range of motion, no trauma Skin: Normal color, no trauma, abrasions Neuro: Alert, oriented, cranial nerves II through XII grossly intact. Psychiatry: Normal mood. Normal affect. Not depressed. Not anxious. Results Lab / Micro Data Result Diagrams: 09/30/22 15:42 09/30/22 15:42 Labs: Laboratory Results - last 24 hr 09/30/22 15:42: WBC 8.0, RBC 3.39 L, Hgb 11.8 L, Hct 35.3 L, MCV 104.1 H, MCH 34.8 H, MCHC 33.4, RDW Std Deviation 52.2 H, RDW Coeff of Justine 13.6, Plt Count 198, MPV 8.1, Immature Gran % (Auto) 0.900, Neut % (Auto) 66.7, Lymph % (Auto) 17.3 L, [place] % (Auto) 13.2 H, Eos % (Auto) 1.5, Baso % (Auto) 0.4, Absolute Neuts (auto) 5.3, Absolute Lymphs (auto) 1.38, Nucleated RBC % 0 09/30/22 15:42: Sodium 139, Potassium 3.3 L, Chloride 102, Carbon Dioxide 30.0, Anion Gap 7, BUN 18, Creatinine 0.84, Estim Creat Clear Calc 93.38, Est GFR (MDRD) Af Amer 117, Est GFR (MDRD) Non-Af 97, BUN/Creatinine Ratio 21.4 H, Glucose 116 H, Calcium 8.9, Troponin I High Sens 14 Radiology Impression Chest X-Ray 09/30/22 15:55 IMPRESSION: No radiographic evidence of acute cardiopulmonary disease. Electronically Signed: Jamison Torres MD at 16:26 EST , Chest CTA 09/30/22 16:04 IMPRESSION: Normal CTA chest examination, without a demonstrated pulmonary embolism or arterial dissection. No acute pulmonary findings. Electronically Signed: Jamison Torres MD at 17:39 EST , Assessment & Plan Assessment/Plan (1) Chest pain: (2) Dyspnea on exertion: (3) Hypertension: PLAN: Plan Chest Pain Place on a monitored bed at progressive care unit. Impression of chest x-ray by radiologist:No radiographic evidence of acute cardiopulmonary disease Actual CXR image was independently visualized. No acute cardiopulmonary process was noted. Actual EKG tracing was independently visualized. EKG tracing showed first-degree AV block Chest CTA with no PE or dissection Full Dose aspirin given in ED. ASA 81 mg p.o. daily ordered SL NTG 0.4 mg prn as needed for chest pain ordered Morphine as needed for pain ordered We will check lipid panel. Initial high-sensitivity troponin was negative. Serial cardiac enzymes ordered Stat EKG as needed for chest pain Chemical Stress test in the AM if the cardiac enzymes are negative. Dyspnea on exertion/hypoxia Echocardiogram ordered Hypertension Blood pressure is not within goal Amlodipine, carvedilol and losartan continued. As needed hydralazine ordered. Trend blood pressure and adjust blood pressure medications. DVT prophylaxis: SCDs ordered Charges/Coding Visit Charges OBSV E&M: 62229 Initial observation care L3
[2022-09-30] MEDS: Aspirin 325 MG Tablet PO (20:37)
[2022-09-30] MEDS: Potassium Chloride Oral Tablet 20 MEQ 40 MEQ PO (20:37)
[2022-09-30 20:43] VITALS: BP 174/95; PULSE 66; RESP 17; TEMP 36.2; O2SAT 97
[2022-09-30 21:30] VITALS: BP 153/74; PULSE 58; RESP 18; TEMP 36.1; O2SAT 94; BMI 44.8
--- NOTE | 2022-09-30 21:30 | EKG12_ITS ---
Test Reason : CP ADMIT Blood Pressure : / mmHG Vent. Rate : 058 BPM Atrial Rate : 058 BPM P-R Int : 266 ms QRS Dur : 108 ms QT Int : 456 ms P-R-T Axes : 071 020 035 degrees QTc Int : 447 ms Sinus bradycardia with 1st degree A-V block Nonspecific T wave abnormality Abnormal ECG When compared with ECG of 30-SEP-2022 15:58, MANUAL COMPARISON REQUIRED, DATA IS UNCONFIRMED Confirmed by KAROLINE VERDE, SARABJIT ([id number]), newspaper copy editor MARTY WASHINGTON ([id number]) on 10/02/2022 12:40:27 PM Referred By: ALEKSANDRA Confirmed By:SARABJIT RAMEY MD
[2022-09-30 22:26] LABS: Troponin-I HS 14 pg/mL (3.0-78.0)
[2022-09-30] MEDS: Morphine 2 MG/ML Syringe IV (22:44)
[2022-10-01] VITALS (9 sets, daily range): BP systolic 149–162; BP diastolic 82–97; PULSE 51–75; RESP 16–18; TEMP 35.6–37; O2SAT 88–97
[2022-10-01 00:05] LABS: Troponin-I HS 17 pg/mL (3.0-78.0)
[2022-10-01] MEDS: 0.9% Saline Lock 10 ML Syringe IV ×3 (01:20→12:19)
[2022-10-01] MEDS: Morphine 2 MG/ML Syringe IV ×5 (01:29→17:20)
[2022-10-01 04:02] LABS: Absolute Lymphocyte Count 1.17 X10^3/uL (0.83-4.51); Absolute Neutrophil Count 4.6 X10^3/uL (2.0-7.7); Basophil# 0.04 X10^3/uL; Basophil% 0.6 % (0-1); Eosinophils% 2.9 % (0-5); Hematocrit 36.4 % (40-54); Lymphocyte # 1.17 X10^3/ul (0.83-4.51); Lymphocyte % 16.8 % (19-41); Mean Corpuscular Hgb 35.5 pg (27.0-32.0); Mean Corpuscular Volume 107.7 fL (80-94); Mean Platelet Vol. 8.2 fl (6.2-12.0); Monocyte% 12.9 % (0-10); NRBC Flagged by Analyzer 0 % (0-5); Neutrophil # 4.56 X10^3/uL (2.7-7.7); Neutrophil % 65.6 % (47-70); Platelet Count 185 K/mm3 (150-450); RBC Distribution Width CV 13.7 % (11.6-14.6); RBC Distribution Width SD 54.4 fl (35.1-43.9); Red Blood Count 3.38 M/mm3 (4.6-6.2)
[2022-10-01 04:34] LABS: BNP,B-Type NATRIURETIC PEPTIDE 57.7 pg/mL (0-100)
[2022-10-01 04:36] LABS: Troponin-I HS 19 pg/mL (3.0-78.0)
[2022-10-01 04:44] LABS: Anion Gap 5 (5-15); BUN 15 mg/dL (7-18); BUN/Creat Ratio 17.5 RATIO (10-20); Calcium,Total 9.5 mg/dL (8.5-10.1); Chloride 102 mmol/L (98-107); Cholesterol 146 mg/dL (200); Creatinine, Serum 0.86 mg/dL (0.70-1.30); EST Glomerular Filtration Rate 95 mL/min (>60); Est Glom Filt Rate - Afr Amer 115 mL/min (>60); Estimated Creatinine Clearance 88.42 ml/min; Glucose 109 mg/dL (74-106); High Density Lipoprotein 43 mg/dL; Potassium 4.6 mmol/L (3.5-5.1); Sodium Level 141 mmol/L (136-145); Triglycerides 118 mg/dL; Very Low Density Lipoprotein 24 mg/dL (5-40)
--- NOTE | 2022-10-01 05:55 | EKG12_ITS ---
Test Reason : AM EKG Blood Pressure : / mmHG Vent. Rate : 056 BPM Atrial Rate : 056 BPM P-R Int : 274 ms QRS Dur : 108 ms QT Int : 470 ms P-R-T Axes : 068 022 041 degrees QTc Int : 453 ms Sinus bradycardia with 1st degree A-V block Nonspecific T wave abnormality Abnormal ECG When compared with ECG of 30-SEP-2022 21:33, MANUAL COMPARISON REQUIRED, DATA IS UNCONFIRMED Confirmed by KAROLINE VERDE, SARABJIT ([id number]), editor publications MARTY WASHINGTON ([id number]) on 10/02/2022 12:56:59 PM Referred By: Confirmed By:SARABJIT RAMEY MD
--- NOTE | 2022-10-01 05:55 | ECHOCS_ITS ---
Reason For Study: SOB Procedure This was a 2D Doppler, Color Flow transthoracic echocardiogram. The study was technically difficult. Exam performed in department. Left Ventricle Normal LV size. Mild concentric left ventricular hypertrophy. Left ventricular systolic function is normal. The estimated ejection fraction is 60 %. No regional wall motion abnormalities noted. Right Ventricle Normal RV size. Normal systolic function. Atria The left atrium is moderately enlarged. Normal right atrium. Mitral Valve Normal mitral valve. Tricuspid Valve Normal tricuspid valve. Aortic Valve Normal aortic valve. Pulmonic Valve Normal pulmonic valve. Great Vessels Mildly dilated aortic root. The pulmonary artery is normal size. Normal inferior vena cava. Pericardium/Pleural No pericardial effusion. Medication Diluted definity 1.5ml given slow IV push to enhance endocardial definition. MMode/2D Measurements & Calculations LVIDd: 5.0 cm IVSd: 1.4 cm Ao root diam: 4.5 cm LVIDs: 2.7 cm LVPWd: 1.4 cm RVDd: 4.2 cm FS: 44.7 % LAV(MOD-bp): 77.5 ml LA A4 area: 29.3 cm2 LA dimension(2D): 4.9 cm LAV(MOD-bp) Indexed: 30.4 ml/m2 LAV(MOD-sp2): 52.3 ml LAV(MOD-sp4): 96.6 ml RA A4 area: 20.0 cm2 Time Measurements MV dec time: 0.31 sec Doppler Measurements & Calculations MV E max haresh: 81.9 cm/sec Lat Peak E' Haresh: 13.8 cm/sec Med Peak E' Haresh: 7.4 cm/sec MV A max haresh: 88.7 cm/sec E/E' lat: 5.9 E/E' med: 11.1 MV E/A: 0.92 MV dec slope: 261.9 cm/sec2 Ao V2 max: 185.7 cm/sec LV V1 max: 134.6 cm/sec Ao max P.8 mmHg LV V1 max P.3 mmHg PA V2 max: 150.3 cm/sec TR max haresh: 300.6 cm/sec TR max P.2 mmHg ECHO/Echo Complete W/ Contrast Interpretation Summary Normal LV size. Left ventricular systolic function is normal. The estimated ejection fraction is 60 %. Mild concentric left ventricular hypertrophy. Mildly dilated aortic root. Ordering Physician: Pancho Hartmann Performed By: Shannon Farfan RDCS
[2022-10-01] MEDS: Aspirin E.C. 81 MG Tablet PO (08:59)
[2022-10-01] MEDS: Losartan Potassium 100 MG Tablet PO (08:59)
[2022-10-01] MEDS: buPROPion 75 MG Tablet PO (12:18)
[2022-10-01] MEDS: Multivitamin (Healthy Eyes) Capsule 1 CAP PO (12:18)
[2022-10-01] MEDS: Carvedilol 25 MG Tablet PO (12:18)
[2022-10-01] MEDS: Escitalopram Oxalate 20 MG Tablet PO (12:18)
--- NOTE | 2022-10-01 13:04 | STRESSREP ---
Stress Test Report Pharmacologic myocardial perfusion stress test. 67-year-old man with a history of chest pain Resting EKG demonstrates sinus bradycardia with a rate of 64 bpm. Resting blood pressure is 150/90 mmHg. 0.4 mg of regadenoson was infused per usual protocol followed by rapid intravenous saline flush injection. Continuous EKG monitoring was performed. The maximum heart rate was 88 bpm which was 56% of max impacted heart rate the maximum workload was 1 metabolic equivalent. At rest there were no ST or T wave changes noted to suggest ischemia and at peak infusion nonspecific ST changes were noted with did not meet the criteria for ischemia. Occasional premature ventricular complexes noted. No clinical angina is noted. The final blood pressure was 144/86 mmHg. Myocardial perfusion protocol. 15.0 mCi of technetium 99m sestamibi was injected at rest. 0.4 mg of regadenoson was infused per usual protocol. At peak infusion 44.8 mCi of technetium 99m sestamibi was injected stress images were obtained stress and rest images were reconstructed and compared in the short axis vertical long and horizontal long axis. Gated images were also obtained. Perfusion SPECT analysis: Review of the stress images demonstrate normal uptake of tracer noted in all areas of the myocardium. The resting images similar demonstrated normal uptake of tracer noted in all areas of the myocardium. No areas of reversibility are noted to suggest ischemia and no previous infarct is noted. Gated SPECT analysis: The gated ejection fraction is 61. Conclusion: Normal pharmacologic myocardial perfusion stress test. Preserved ejection fraction.
--- NOTE | 2022-10-01 13:42 | DCINST_ITS ---
Discharge Instructions Diet Discharge Diet: No restrictions Activity Discharge Activity: - (Return to normal activity as tolerated) Follow Up Care Test Results: Test results from this visit will be discussed in further detail at your follow- up appointment, if applicable. Discharge Plan Admission Admit Date/Time: 09/30/22 20:12 Primary Reason for Your Visit: Chest pain Attending Provider: Apryl Fung Primary Care Provider: Arleen Hwang Consulting Providers: Pancho Hartmann Instructions Additional Instructions / Restrictions: ? You were admitted with chest pain and your heart work-up was negative. You likely have continued pain due to inflammation in your lungs from a viral in fection which should improve with time. ? You will be sent with a short course of pain medication due to the continued pain ? Continue home medications -Please call your primary care provider's office upon discharge to schedule a hospital follow up within 1 week. -For any concerning signs or symptoms please call 911 or proceed to the nearest emergency department Discharge Orders/Prescriptions Prescriptions: New hydrocodone-acetaminophen 5-325 mg tablet 1 tab PO Q8H PRN (Reason: pain) 4 Days Qty: 12 0RF Continued amlodipine 10 MG tablet 10 mg PO QHS colestipol 1 GM tablet 1 gm PO QHS escitalopram oxalate 20 MG tablet 20 mg PO DAILY vit C,E-Bv-grwtt-lutein-zeaxan 1 EACH capsule 1 cap PO BID carvedilol 25 mg tablet 25 mg PO BID Label Comments: TAKE 1 TABLET BY MOUTH TWICE A DAY WITH MEALS bupropion HCl 75 mg tablet 75 mg PO DAILY Label Comments: START WITH TAKING 1 TABLET DAILY AND INCREASE TO 1 TABLET TWICE DAILY IF TOLERATED losartan 100 mg tablet 100 mg PO DAILY Label Comments: TAKE 1 TABLET BY MOUTH EVERY DAY Referrals / Follow Up: Arleen Hwang MD [Primary Care Provider] - Within 1 Week Disposition Disposition (needs filled in before D/C Order can be placed): Home, Self Care
--- NOTE | 2022-10-01 13:51 | PCM.DC.SUM ---
Providers Date of Admission: 09/30/22 Date of Discharge: 10/01/22 Primary Care Physician: Dr. Arleen Hwang MD Reason For Visit: CHEST PAIN, HYPOXIA Diagnosis Discharge Diagnosis (1) Chest pain: Status: Inactive Code(s): R07.9 - Chest pain, unspecified (2) Dyspnea on exertion: Status: Acute Code(s): R06.09 - Other forms of dyspnea (3) Hypertension: Status: Chronic Code(s): I10 - Essential (primary) hypertension Plan (1) Chest pain: (2) Dyspnea on exertion: (3) Hypertension: Medications at Discharge Home Medications amlodipine 10 mg tablet 10 mg PO QHS 10/14/19 colestipol 1 gram tablet 1 gm PO QHS 10/14/19 escitalopram oxalate 20 mg tablet 20 mg PO DAILY 10/14/19 vit C 250 mg-vit E 90 mg-zinc 40 mg-copper 1 nl-bpzdao-qbrpip capsule 1 cap PO BID eye health 10/14/19 bupropion HCl 75 mg tablet 75 mg PO DAILY 09/18/22 carvedilol 25 mg tablet 25 mg PO BID 09/18/22 losartan 100 mg tablet 100 mg PO DAILY 09/30/22 hydrocodone-acetaminophen 5-325mg 5mg-325mg 1 tab PO Q8H PRN pain 4 days #12 tabs 10/01/22 Hospital Course Procedures - (Nuclear medicine stress test) Summary of Care Provided Minutes Spent on Discharge: 31 Hospital Course: ZIYAD BAER, is a 67 M with a significant history of prostate cancer currently under surveillance; bladder cancer s/p resection; hypertension; PE associated with COVID who presents to the emergency department with chest pain that started on before 2021. Chest pain alternates between back of his ribs, substernal, on his sides and worsens with movement and sitting up as well as palpation. Does have continued associated shortness of breath as well. He did test positive for COVID around 10 days ago and was diagnosed pneumonia and pleurisy and completed his treatment at that time. When he presented to the emergency department 09/30/2022 with chest pain he was admitted for chest pain rule out was also found to be hypoxic with O2 of 86% on room air. Repeat CTA no acute findings, troponins negative, NM stress test was negative. Description of pain is pleuritic, does report it has been improving overall and he is comfortable going home with several days of pain medication. O2 assessment prior to discharge. On the day of discharge 10/01/2022 he reported the pain improves with pain medication, shortness of breath roughly the same, does have slight cough which is unchanged. Denied other complaints at this time Physical Exam Const alert and oriented x3 General Appearance: cooperative and comfortable HEENT normocephalic and head/scalp atraumatic Eyes EOMs intact bilaterally Neck supple Resp normal respiratory effort Resp Narrative: Expiratory wheezes bilaterally Cardio regular rate and regular rhythm GI soft to palpation, non-tender and non-distended Extremity Extremity Narrative: No pitting and AZIZA Skin no rashes or lesions noted Neuro moves all extremities Neuro Narrative: No overt focal deficits appreciated Psych affect normal Weight / BMI Weight Weight: 145.3 kg Body Mass Index (BMI) 44.8 ABG / Lab / Microbiology Data Result Diagrams: 10/01/22 03:40 10/01/22 03:40 Laboratory: Laboratory Results - last 24 hr 09/30/22 15:42: WBC 8.0, RBC 3.39 L, Hgb 11.8 L, Hct 35.3 L, MCV 104.1 H, MCH 34.8 H, MCHC 33.4, RDW Std Deviation 52.2 H, RDW Coeff of Justine 13.6, Plt Count 198, MPV 8.1, Immature Gran % (Auto) 0.900, Neut % (Auto) 66.7, Lymph % (Auto) 17.3 L, [place] % (Auto) 13.2 H, Eos % (Auto) 1.5, Baso % (Auto) 0.4, Absolute Neuts (auto) 5.3, Absolute Lymphs (auto) 1.38, Nucleated RBC % 0 09/30/22 15:42: Sodium 139, Potassium 3.3 L, Chloride 102, Carbon Dioxide 30.0, Anion Gap 7, BUN 18, Creatinine 0.84, Estim Creat Clear Calc 93.38, Est GFR (MDRD) Af Amer 117, Est GFR (MDRD) Non-Af 97, BUN/Creatinine Ratio 21.4 H, Glucose 116 H, Calcium 8.9, Troponin I High Sens 14 09/30/22 21:40: Troponin I High Sens 14 09/30/22 23:10: Troponin I High Sens 17 10/01/22 03:40: WBC 7.0, RBC 3.38 L, Hgb 12.0 L, Hct 36.4 L, MCV 107.7 H, MCH 35.5 H, MCHC 33.0, RDW Std Deviation 54.4 H, RDW Coeff of Justine 13.7, Plt Count 185, MPV 8.2, Immature Gran % (Auto) 1.200 H, Neut % (Auto) 65.6, Lymph % (Auto) 16.8 L, [place] % (Auto) 12.9 H, Eos % (Auto) 2.9, Baso % (Auto) 0.6, Absolute Neuts (auto) 4.6, Absolute Lymphs (auto) 1.17, Nucleated RBC % 0 10/01/22 03:40: Sodium 141, Potassium 4.6, Chloride 102, Carbon Dioxide 34.0 H, Anion Gap 5, BUN 15, Creatinine 0.86, Estim Creat Clear Calc 88.42, Est GFR (MDRD) Af Amer 115, Est GFR (MDRD) Non-Af 95, BUN/Creatinine Ratio 17.5, Glucose 109 H, Calcium 9.5, Triglycerides 118, Cholesterol 146, LDL Cholesterol 79, VLDL Cholesterol 24, HDL Cholesterol 43 10/01/22 03:40: B-Natriuretic Peptide 57.7 10/01/22 03:40: Troponin I High Sens 19 Radiography Diagnostic Testing: Radiology Impression Chest X-Ray 09/30/22 15:55 IMPRESSION: No radiographic evidence of acute cardiopulmonary disease. Electronically Signed: Jamison Torres MD at 16:26 EST , Chest CTA 09/30/22 16:04 IMPRESSION: Normal CTA chest examination, without a demonstrated pulmonary embolism or arterial dissection. No acute pulmonary findings. Electronically Signed: Jamison Torres MD at 17:39 EST , D/C Instructions Discharge Diet: No restrictions Meaningful Use Info Meaningful Use Diagnoses (Choose all that apply): None applicable Discharge Plan Admission Admit Date/Time: 09/30/22 20:12 Primary Reason for Your Visit: Chest pain Attending Provider: Apryl Fung Primary Care Provider: Arleen Hwang Consulting Providers: Pancho Hartmann Instructions Additional Instructions / Restrictions: ? You were admitted with chest pain and your heart work-up was negative. You likely have continued pain due to inflammation in your lungs from a viral infection which should improve with time. ? You will be sent with a short course of pain medication due to the continued pain ? Continue home medications -Please call your primary care provider's office upon discharge to schedule a hospital follow up within 1 week. -For any concerning signs or symptoms please call 911 or proceed to the nearest emergency department Discharge Orders/Prescriptions Prescriptions: New hydrocodone-acetaminophen 5-325 mg tablet 1 tab PO Q8H PRN (Reason: pain) 4 Days Qty: 12 0RF Continued amlodipine 10 MG tablet 10 mg PO QHS colestipol 1 GM tablet 1 gm PO QHS escitalopram oxalate 20 MG tablet 20 mg PO DAILY vit C,W-Ot-uijxd-lutein-zeaxan 1 EACH capsule 1 cap PO BID carvedilol 25 mg tablet 25 mg PO BID Label Comments: TAKE 1 TABLET BY MOUTH TWICE A DAY WITH MEALS bupropion HCl 75 mg tablet 75 mg PO DAILY Label Comments: START WITH TAKING 1 TABLET DAILY AND INCREASE TO 1 TABLET TWICE DAILY IF TOLERATED losartan 100 mg tablet 100 mg PO DAILY Label Comments: TAKE 1 TABLET BY MOUTH EVERY DAY Referrals / Follow Up: Arleen Hwang MD [Primary Care Provider] - Within 1 Week Disposition Disposition (needs filled in before D/C Order can be placed): Home, Self Care Charges/Coding Visit Charges OBSV E&M: 10951 Observation care discharge
--- NOTE | 2022-10-01 14:23 | CASEMGMT ---
Addendum entered by Naz Galindo 10/01/22 14:31: Pt states has working pulse ox at home. Komal JIMENEZ CM Original Note: Per Mari RN, pt qualifies for 3L home oxygen w/ exertion. This RN CM to room and pt states no preference for [employer], declines list. Pt states 'as long as they are in-network with my insurance.' Dr. Fung updated and script to [facility] for discharge thru [facility]. Molly at [facility] updated on order, voices understanding. Pt voices no further questions/concerns/needs for discharge. Komal JIMENEZ CM
--- NOTE | 2022-10-01 16:00 | PHA.DC.MR ---
Pharmacy Service has performed discharge medication reconciliation for this patient. The patient's discharge medication list was reviewed for discrepancies and discrepancies were resolved. Home Medications amlodipine 10 mg tablet 10 mg PO QHS 10/14/19 colestipol 1 gram tablet 1 gm PO QHS 10/14/19 escitalopram oxalate 20 mg tablet 20 mg PO DAILY 10/14/19 vit C 250 mg-vit E 90 mg-zinc 40 mg-copper 1 gk-bqsshy-ozbbxf capsule 1 cap PO BID eye health 10/14/19 bupropion HCl 75 mg tablet 75 mg PO DAILY 09/18/22 carvedilol 25 mg tablet 25 mg PO BID 09/18/22 losartan 100 mg tablet 100 mg PO DAILY 09/30/22 hydrocodone-acetaminophen 5-325mg 5mg-325mg 1 tab PO Q8H PRN pain 4 days #12 tabs 10/01/22
== END 2022-10-01 13:48 | disposition home or self-care (01) ==
LOC: ED 20:14 → PCU 20:46
PROVIDERS: Admitting Provider Hospitalist; Emergency Provider Student in an Organized Health Care Education/Training Program; PCP Internal Medicine; Visit Provider Internal Medicine
DX: R07.89 Other chest pain (principal); Z86.16 Personal history of COVID-19; E87.6 Hypokalemia; I44.0 Atrioventricular block, first degree; Z87.891 Personal history of nicotine dependence; Z87.01 Personal history of pneumonia (recurrent); I10 Essential (primary) hypertension; Z86.711 Personal history of pulmonary embolism; Z79.899 Other long term (current) drug therapy; Z79.01 Long term (current) use of anticoagulants; L40.9 Psoriasis, unspecified; R06.09 Other forms of dyspnea
CPT/HCPCS: 36415; 71045; 71275; 78452; 80048; 80061; 83880; 84484; 85025; 93005; 93017; 93306; 96374; 96375; 96376; 99218; 99285; A9500; Q9957; Q9967; A4216; C8929; G0378; J2405; J2785

== ENCOUNTER 2022-10-22 12:14 | Observation (INO) | payer MEDICARE, SELFPAY ==
[2022-10-22 12:16] VITALS: BP 169/84; PULSE 65; RESP 14; TEMP 35.9; O2SAT 97; BMI 42.5
--- NOTE | 2022-10-22 13:34 | MRI_ITS ---
STUDY: MRI THORACIC SPINE WITHOUT CONTRAST REASON FOR EXAM: Male, 67 years old. Back pain, compression fracture, bilateral [place] TECHNIQUE: Standardized fat and water weighted pulse sequences were obtained in the sagittal and axial planes. COMPARISON: Chest CT 09/30/2022 FINDINGS: Normal kyphosis of the thoracic spine. There is no substantial scoliosis. Subacute moderate compression fracture the T7 vertebral body with markedly low signal suggestive of interval recent vertebroplasty. 5 mm retropulsion into the spinal canal produces moderate spinal stenosis with abutment of the thoracic spinal cord. T1-2, T2-3, T3-4, T4-5, T5-6, T6-7, T7-8, T8-9, T9-10, T10-11, T11-12: Normal endplates. Normal disc hydration, heights and morphology of the corresponding intervertebral discs. Normal central canal and intervertebral neural foramina at the corresponding levels. Normal visualized thoracic cord. Normal conus medullaris that terminates at the L1.. The soft tissue structures are unremarkable. MRI/Spine Thoracic (Routine) IMPRESSION: Subacute moderate compression fracture of T7 treated with vertebroplasty now with 5 mm retropulsion into the spinal canal producing moderate spinal stenosis and abutment of the spinal cord. Electronically Signed: Jet Winkler MD at 16:31 EST ,
--- NOTE | 2022-10-22 13:34 | MRI_ITS ---
STUDY: MRI LUMBAR SPINE WITHOUT CONTRAST REASON FOR EXAM: Male, 67 years old. Back pain, bilateral Babinski sign, hyperreflexia TECHNIQUE: Standardized fat and water weighted pulse sequences were obtained in the sagittal and axial planes. COMPARISON: None FINDINGS: T12-L1: Disc desiccation with loss of disc height but no disc protrusion, spinal stenosis, or neural foraminal stenosis. Normal lumbar lordosis. There is no substantial scoliosis. Normal conus medullaris that terminates at the L1/L2. L1-2: Normal endplates. Normal disc height, hydration and morphology. Normal bilateral facet joints. Normal central canal and bilateral lateral recesses. Normal bilateral intervertebral neural foramina. L2-3: Moderate size left foraminal protrusion produces moderate left lateral recess stenosis with abutment of the left L3 nerve root and moderate left neural foraminal stenosis with abutment of the left L2 nerve root laterally and no central spinal stenosis. L3-4: Moderate bilateral facet hypertrophy and ligament flavum hypertrophy. Mild bilobed disc protrusion with a left foraminal protrusion produces mild spinal stenosis but moderate bilateral lateral recess stenosis with abutment of the L4 nerve roots bilaterally, mild right neural foraminal stenosis and moderate left neural foraminal stenosis with abutment of the left L3 nerve root laterally. L4-5: Mild bilateral facet hypertrophy and moderate ligament flavum hypertrophy. Mild bilobed disc osteophyte complex asymmetric to the right produces mild spinal stenosis with mild bilateral lateral recess stenosis and moderate right neural foraminal stenosis with abutment of the right L4 nerve root laterally. L5-S1: Moderate broad disc protrusion produces moderate spinal stenosis and moderate bilateral neural foraminal stenosis with abutment of the L5 nerve roots bilaterally. Normal visualized sacral ala. Moderate friction related edema in the posterior subcutaneous fat. MRI/Spine Lumbar (Routine) IMPRESSION: Multilevel degenerative changes, as described above. Electronically Signed: Jet Winkler MD at 16:56 EST ,
[2022-10-22] MEDS: HYDROmorphone 1 MG/ML Syringe IV ×3 (13:58→17:06)
[2022-10-22] MEDS: Ondansetron 4 MG/2 ML Vial IV (13:58)
[2022-10-22 14:09] LABS: Absolute Lymphocyte Count 1.82 X10^3/uL (0.83-4.51); Basophil# 0.04 X10^3/uL; Basophil% 0.4 % (0-1); Eosinophil# 0.17 X10^3/uL; Eosinophils% 1.6 % (0-5); Hematocrit 36.4 % (40-54); Hemoglobin 12.2 g/dL (13.0-16.5); Lymphocyte # 1.82 X10^3/ul (0.83-4.51); Lymphocyte % 17.7 % (19-41); Mean Corp Hgb Conc 33.5 g/dL (32-36); Mean Corpuscular Hgb 34.7 pg (27.0-32.0); Mean Corpuscular Volume 103.4 fL (80-94); Mean Platelet Vol. 8.1 fl (6.2-12.0); Monocyte# 1.18 X10^3/uL; Monocyte% 11.4 % (0-10); NRBC Flagged by Analyzer 0 % (0-5); Neutrophil # 7.02 X10^3/uL (2.7-7.7); Neutrophil % 68.1 % (47-70); Platelet Count 223 K/mm3 (150-450); RBC Distribution Width CV 13.3 % (11.6-14.6); RBC Distribution Width SD 50.5 fl (35.1-43.9); Red Blood Count 3.52 M/mm3 (4.6-6.2); White Blood Count 10.3 K/mm3 (4.4-11.0)
[2022-10-22 14:21] LABS: Anion Gap 8 (5-15); BUN 24 mg/dL (7-18); BUN/Creat Ratio 21.1 RATIO (10-20); CRP < 2.90 mg/L (0.0-3.0); Calcium,Total 9.4 mg/dL (8.5-10.1); Chloride 100 mmol/L (98-107); Creatinine, Serum 1.14 mg/dL (0.70-1.30); EST Glomerular Filtration Rate 68 mL/min (>60); Est Glom Filt Rate - Afr Amer 83 mL/min (>60); Glucose 112 mg/dL (74-106); Potassium 3.9 mmol/L (3.5-5.1); Sodium Level 138 mmol/L (136-145)
--- NOTE | 2022-10-22 14:27 | ED.RN ---
MRI called stating patient is unable to lie flat for MRI scan, request for pain medication- verbal order for Dilaudid received.
--- NOTE | 2022-10-22 14:46 | EDS_ITS ---
HPI History of Present Illness Chief Complaint: Other, Pain/Inj Detail of Chief Complaint: Thoracic and dorsal back pain with electrical shocks down both legs Informant: patient Onset/Context/Timing Onset: Days (2 to 3 days) Context: Sudden Onset Timing: Continuous (Pain is consistent), Intermittent (Electrical shocks is intermittent) and Waxes and wanes Quality: Pain Location: Thoracic and lumbar Current Severity: Mild Maximum Severity: Severe Worsened by: Any type of movement Relieved by: Nothing Associated Symptoms Associated Symptoms: Electrical shocks down both legs. Narrative Narrative: Patient is a 67-year-old male with history of type tension depression, and pulmonary embolus. He presents with back pain with electrical shocks going down both legs. He denies bowel bladder dysfunction. Denies saddle paresthesia or anesthesia. He denies foot drop. He denies buckling of his knees going up or down steps. He denies fever, chills night sweats. He states he was recently in the emergency department and diagnosed with a thoracic compression fracture. He states this was secondary to coughing. Prior similar symptoms: No Recent Illness/Hospitalization: Yes [facility] Medical History Cancer Hypertension Psoriasis Home Medications amlodipine 10 mg tablet 10 mg PO QHS 10/14/19 [History Last Taken 10/17/20] colestipol 1 gram tablet 1 gm PO QHS 10/14/19 [History Last Taken 10/16/20] escitalopram oxalate 20 mg tablet 20 mg PO DAILY 10/14/19 [History Last Taken 10/17/20] vit C 250 mg-vit E 90 mg-zinc 40 mg-copper 1 wa-rlbzea-juovlz capsule 1 cap PO BID eye health 10/14/19 [History Last Taken 10/17/20] bupropion HCl 75 mg tablet 75 mg PO DAILY 09/18/22 [History Last Taken Unknown] carvedilol 25 mg tablet 25 mg PO BID 09/18/22 [History Last Taken Unknown] losartan 100 mg tablet 100 mg PO DAILY 09/30/22 [History Last Taken Unknown] hydrocodone-acetaminophen 5-325mg 5mg-325mg 1 tab PO Q8H PRN pain 4 days #12 tabs 10/01/22 [Rx Last Taken Unknown] Allergy/AdvReac Type Severity Reaction Status Date / Time Penicillins Allergy Itching Verified 10/22/22 12:16 Family History Other Brain aneurysm Heart disease Prostate CA Surgical History History of carpal tunnel surgery History of herniorrhaphy Hx of appendectomy Hx of cholecystectomy Social History household members: spouse Smoking Status: Former smoker substance use type: does not use ROS ROS ED Constitutional Constitutional ED: Reports weight loss and other Details: Patient reports 10 pound weight loss. ; Denies chills, fever(s), subjective or sweats Eyes Eyes: Denies blurry vision, change in vision or diplopia ENT ENT ED: Denies ear pain, rhinorrhea or sore throat Cardiovascular Cardiovascular: Denies chest pain, orthopnea, palpitations, paroxysmal nocturnal dyspnea or racing heartbeat Respiratory/Chest Respiratory/Chest: Reports cough; Denies dyspnea, dyspnea on exertion, orthopnea or paroxysmal nocturnal dyspnea Gastrointestinal Gastrointestinal: Reports other Details: Patient complains of bloated sensation upper abdomen. ; Denies abdominal pain, constipation, diarrhea, melena, nausea or vomiting Genitourinary Genitourinary ED: Denies dysuria Musculoskeletal Musculoskeletal: Denies arthralgias, back pain, myalgias or neck pain Integumentary Denies Abrasions or rash Neurologic Neurologic: Reports paresthesias; Denies headache(s) or weakness Psychiatric Psychiatric: Denies anxiety Endocrine Endocrinology: Denies cold intolerance or heat intolerance Hematologic/Lymphatic Hematologic/Lymphatic: Reports systems reviewed and no addt'l complaints, except as documented EXAM Physical Exam Const Vital Signs: 10/22/22 12:16 10/22/22 13:57 Temperature 96.6 F L Temperature Source Temporal Pulse Rate 65 Respiratory Rate 14 Respiratory Effort Normal Non-Labored Blood Pressure 169/84 H Blood Pressure Mean 112 Pulse Ox 97 Oxygen Delivery Method Room Air Positive well nourished, well developed and obese General Appearance ED: well developed; Negative for cyanotic, diaphoretic, NAD or pallor Nutritional Appearance: obese HEENT Reports moist mucous membranes HEENT Narrative: Head is atraumatic no cephalic. Ears normal. Nares patent. Uvula midline. No deviation tongue or protrusion. No erythema or exudate the posterior pharynx. Eyes PERRL and EOMs intact bilaterally General Eye ED: Negative for pale conjunctiva or scleral icterus Neck no lymphadenopathy, supple and no JVD Chest Wall inspection of chest normal and palpation of chest normal Resp normal respiratory effort and clear to auscultation bilaterally Cardio regular rate, regular rhythm, S1 normal heart sound, S2 normal heart sound and no murmurs GI normal to inspection, nondistended, normoactive bowel sounds, non-tender, non- distended and no masses; Negative for hepatosplenomegaly Auscultation: normoactive bowel sounds Back/Spine no CVA tenderness Back/Spine Narrative: Straight leg test is negative right and left. Patient's reflexes are 3+ patella and ankle and only 1+ bicep, brachialis and tricep. Patient does not have clonus however he has bilateral Babinski sign. He denies altered sensation over L3, L4, L5 or S1 dermatome. He denies abnormal sensation in the perianal area. Cervical Spine: Negative for cervical spine tenderness Thoracic Spine / Upper Back: thoracic spinal tenderness Lumbar Spine / Lower Back: lumbar spinal tenderness Extremity normal to inspection General Extremety ED: Negative for edema or tenderness General Extremity: Negative for edema Neuro oriented x3, CN's II-XII intact bilaterally and no sensory deficits noted Neuro Narrative: EHLs intact bilaterally. 5/5 strength with plantar and dorsiflexion of the foot. Slightest movement causes him significant pain and unable to stand at this point. Sensorium / Orientation: alert Psych mental status grossly normal Skin no rashes or lesions noted, no wounds and skin turgor normal General Skin Exam: Negative for jaundice or pallor MDM MDM MDM Narrative Medical decision making narrative: With recent respiratory infection mid back pain with reported compression fracture from coughing and now objective findings of bilateral Penske sign need to evaluate for cord compression. MRI of the thoracic and lumbar spine was obtained. Differential diagnosis would include transverse myelitis, cord compression from 1 of several factors, additional compression fractures, MS. [employer] blood work was obtained as well as MRI of the thoracic and lumbar spine. Since he has not had prior back surgery this was performed without contrast. Patient was initially medicated with 4 mg of Zofran and 1 mg of Dilaudid. Patient was unable to lie flat on the MRI table. An additional milligram of Dilaudid was ordered. Patient was given additional dose of Dilaudid. He also received 10 mg of Decadron. Case was discussed with Dr. Perez who is on-call for spine. He requested patient made n.p.o. after midnight. He will be glad to talk to the hospitalist. He will review MRI and examined patient himself. After examining patient reviewing MRI he will discuss treatment options. Lab Data Attestation: I reviewed the patient's lab results. Labs: Laboratory Results - last 24 hr 10/22/22 10/22/22 14:00 14:00 WBC 10.3 RBC 3.52 L Hgb 12.2 L Hct 36.4 L MCV 103.4 H MCH 34.7 H MCHC 33.5 RDW Std Deviation 50.5 H RDW Coeff of Justine 13.3 Plt Count 223 MPV 8.1 Immature Gran % (Auto) 0.800 Neut % (Auto) 68.1 Lymph % (Auto) 17.7 L [place] % (Auto) 11.4 H Eos % (Auto) 1.6 Baso % (Auto) 0.4 Absolute Neuts (auto) 7.0 Absolute Lymphs (auto) 1.82 Nucleated RBC % 0 Acanthocytes (Spur) 10.3 ESR 20 Sodium 138 Potassium 3.9 Chloride 100 Carbon Dioxide 30.0 Anion Gap 8 BUN 24 H Creatinine 1.14 Estim Creat Clear Calc 68.80 Est GFR (MDRD) Af Amer 83 Est GFR (MDRD) Non-Af 68 BUN/Creatinine Ratio 21.1 H Glucose 112 H Calcium 9.4 C-React Prot Ext Range < 2.90 Radiography Diagnostic Testing: Clinical Impression(s) from Imaging Studies Lumbar Spine MRI 10/22/22 13:34 IMPRESSION: Multilevel degenerative changes, as described above. Electronically Signed: Jet Winkler MD at 16:56 EST , Thoracic Spine MRI 10/22/22 13:34 IMPRESSION: Subacute moderate compression fracture of T7 treated with vertebroplasty now with 5 mm retropulsion into the spinal canal producing moderate spinal stenosis and abutment of the spinal cord. Electronically Signed: Jet Winkler MD at 16:31 EST , EKG Initial EKG: Attestation: I personally reviewed and interpreted this EKG as follows: Interpretation: Sinus Bradycardia (Rate of 56. There is evidence of first-degree block with WA interval of 240 ms. Cures duration 106 ms. QT duration 4 and 62 ms. Cable is normal. 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, Severe back pain, Hypertension Prescriptions: No Action amlodipine 10 MG tablet 10 mg PO QHS colestipol 1 GM tablet 1 gm PO QHS escitalopram oxalate 20 MG tablet 20 mg PO DAILY vit C,H-Gr-bdtvf-lutein-zeaxan 1 EACH capsule 1 cap PO BID carvedilol 25 mg tablet 25 mg PO BID Label Comments: TAKE 1 TABLET BY MOUTH TWICE A DAY WITH MEALS bupropion HCl 75 mg tablet 75 mg PO DAILY Label Comments: START WITH TAKING 1 TABLET DAILY AND INCREASE TO 1 TABLET TWICE DAILY IF TOLERATED losartan 100 mg tablet 100 mg PO DAILY Label Comments: TAKE 1 TABLET BY MOUTH EVERY DAY hydrocodone-acetaminophen 5-325 mg tablet 1 tab PO Q8H PRN (Reason: pain) 4 Days Qty: 12 0RF Primary Care Provider: Arleen Hwang Referrals: Arleen Hwang MD [Primary Care Provider] - Disposition Disposition: Acute Care Hospital [facility]
[2022-10-22 14:59] LABS: Acanthocytes 10.3; Erythrocyte Sedimentation Rate 20 mm/hr (0-20)
--- NOTE | 2022-10-22 16:30 | ED.RN ---
Patient requests to take own home medications that he takes in AM, Dr. Erazo approves and patient takes meds.
[2022-10-22] MEDS: dexAMETHasone 10 MG/ML Vial IV (17:06)
[2022-10-22 17:18] VITALS: BP 158/66; PULSE 66; RESP 16; TEMP 36.6; O2SAT 96
--- NOTE | 2022-10-22 17:54 | PN.HOSP_ITS ---
Subjective Subjective -year-old white male who presented to the emergency department with back pain and electrical shocks going down both legs. He denied any bladder or bowel changes or saddle anesthesias/paresthesia. He does report bilateral lower extremity weakness with buckling of his knees and 3 falls recently but no foot drop. He denied fevers, chills, night sweats. He was recently in the emergency department and diagnosed with a thoracic compression fracture. It was felt that this was secondary to coughing as he recently suffered from a pneumonia as well. His admission was from 09 30 through 10 01 at which time he presented with chest pain and had a CTA that was negative, negative troponins, a negative nuclear medicine stress test and it sounded like his pain was pleuritic in nature. He was placed on 2 L of oxygen prior to discharge but not placed on antibiotics at that time. He remains on 2 L but has not been reevaluated since that time. He does sleep with a sleep Pap at night. He recently had COVID-19 at the end of August. Vital signs overall emergency department are unremarkable. His CBC is stable. His BMP is stable. His EKG is unremarkable. CRP and ESR are normal. Thoracic and lumbar MRIs were performed. Lumbar MRI shows multiple level degenerative changes. Thoracic MRI showed a subacute moderate compression fracture at T7 and he was treated previously with vertebroplasty but now shows a 5 mm retropulsion in the spinal canal producing moderate spinal stenosis and abutment of the spinal cord. Given his symptoms orthopedic surgery was consulted and is admitting the patient for OR tomorrow. We have been consulted for medical management. Objective Data Objective Data Vital Signs: Vital Signs Temp Pulse Resp BP Pulse Ox O2 Del Method O2 Flow Rate 97.9 F 66 16 158/66 H 96 Nasal Cannula 2 10/22/22 17:18 10/22/22 17:18 10/22/22 17:18 10/22/22 17:18 10/22/22 17:18 10/22/22 17:18 10/22/22 17:18 Oxygen Flow Rate (L/min) 2 Oxygen Delivery Method Nasal Cannula Weight: 138.346 kg Body Mass Index (BMI) 42.5 Lab / Micro Data Result Diagrams: 10/22/22 14:00 10/22/22 14:00 Labs: Laboratory Results - last 24 hr 10/22/22 14:00: WBC 10.3, RBC 3.52 L, Hgb 12.2 L, Hct 36.4 L, MCV 103.4 H, MCH 34.7 H, MCHC 33.5, RDW Std Deviation 50.5 H, RDW Coeff of Justine 13.3, Plt Count 223, MPV 8.1, Immature Gran % (Auto) 0.800, Neut % (Auto) 68.1, Lymph % (Auto) 17.7 L, [place] % (Auto) 11.4 H, Eos % (Auto) 1.6, Baso % (Auto) 0.4, Absolute Neuts (auto) 7.0, Absolute Lymphs (auto) 1.82, Nucleated RBC % 0, Acanthocytes (Spur) 10.3, ESR 20 10/22/22 14:00: Sodium 138, Potassium 3.9, Chloride 100, Carbon Dioxide 30.0, Anion Gap 8, BUN 24 H, Creatinine 1.14, Estim Creat Clear Calc 68.80, Est GFR (MDRD) Af Amer 83, Est GFR (MDRD) Non-Af 68, BUN/Creatinine Ratio 21.1 H, Glucose 112 H, Calcium 9.4, C-React Prot Ext Range < 2.90 Radiography Diagnostic Testing: Radiology Impression Lumbar Spine MRI 10/22/22 13:34 IMPRESSION: Multilevel degenerative changes, as described above. Electronically Signed: Jet Winkler MD at 16:56 EST Reading Location ID and State: [email or web address] / [email or web address] Tel , Service support , Thoracic Spine MRI 10/22/22 13:34 IMPRESSION: Subacute moderate compression fracture of T7 treated with vertebroplasty now with 5 mm retropulsion into the spinal canal producing moderate spinal stenosis and abutment of the spinal cord. Electronically Signed: Jet Winkler MD at 16:31 EST Reading Location ID and State: [id number] / [email or web address] Tel , Service support , Physical Exam Const alert, oriented x3, no apparent distress and well nourished Constitutional Narrative: Morbidly obese, middle-aged, white male sitting up in bed, appears comfortable at this time, nontoxic, currently on 2 L nasal cannula HEENT head/scalp atraumatic and moist oral mucous membranes HEENT Narrative: Mallampati 3, no thrush, dentition is fair Head and Scalp: normocephalic Resp normal respiratory effort, no retractions, no use of accessory muscles and clear to auscultation bilaterally Resp Narrative: Diffusely diminished but clear, breath sounds are distant secondary to body habitus Auscultation: Negative for crackles, rhonchi or wheezes Cardio regular rate, regular rhythm, S1 normal heart sound, S2 normal heart sound, no murmurs, no rub, no gallops and no clicks GI normal to inspection, nondistended, normoactive bowel sounds, soft to palpation, non-tender and non-distended GI Narrative: Large protuberant abdomen, umbilical hernia Palpation: hernia Extremity no clubbing, cyanosis or edema Extremity Narrative: Scattered ecchymosis from recent falls Neuro oriented x3 and CN's II-XII intact bilaterally Neuro Narrative: Reflexes bilateral lower extremity are 3-4+, no significant motor deficits, no significant sensory deficits Speech: speech normal Psych affect normal Psych Narrative: Appropriately interactive Assessment & Plan Assessment/Plan (1) Closed wedge compression fracture of T7 vertebra: (2) 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 after midnight for probable surgical intervention tomorrow -I did discuss the case with Dr. Perez -Patient had recent stress test that was unremarkable as well as an unremarkable echocardiogram Chronic hypoxia status post COVID infection -Had COVID-19 at the end of August -Was started on home O2 -Currently on 2 L -Continue 2 L continuous and will try to wean -Would recommend extubation to CPAP after surgery with at least 2 to 4 L bleed postoperatively Hypertension -Continue home carvedilol -Continue home losartan -Continue home amlodipine -As needed hydralazine for systolic blood pressure greater than 160 Aortic aneurysm -Stable ascending aortic aneurysm noted on most recent CTA -4.4 cm -Control blood pressure -Recommend outpatient follow-up FELA -Continue home CPAP Depression -Continue home bupropion Morbid obesity -BMI 42.5 -Recommend weight loss -Complicates treatment, prognosis, outcomes DVT prophylaxis -We will hold for now with surgery pending -Per orthopedic surgery after intervention -SCDs Charges/Coding Visit Charges Inpatient E&M: 43261 Subs Hosp L2
[2022-10-22 19:00] VITALS: BP 152/77; PULSE 64; RESP 18; O2SAT 95
[2022-10-22] MEDS: Morphine 2 MG/ML Syringe IV ×2 (20:13→22:59)
[2022-10-22 20:56] VITALS: BMI 46.5
[2022-10-22 21:22] VITALS: BP 130/67; PULSE 53; RESP 18; TEMP 36.3; O2SAT 93
[2022-10-22] MEDS: oxyCODONE 5 MG Tablet 10 MG PO (21:42)
--- NOTE | 2022-10-22 22:54 | CPS ---
Pt brought in machine from home, cleaned mask and added distilled water and attached a 3L bleed into machine. as at home.
[2022-10-22] MEDS: 0.9% Saline Lock 10 ML Syringe IV (23:05)
[2022-10-22] MEDS: Colestipol 1 GM TABLET PO (23:05)
[2022-10-22] MEDS: Multivitamin (Healthy Eyes) Capsule 1 CAP PO (23:05)
[2022-10-22] MEDS: amLODIPine 10 MG Tablet PO (23:05)
[2022-10-22] MEDS: dexAMETHasone 4 MG/ML Vial IV (23:59)
[2022-10-22] MEDS: Carvedilol 25 MG Tablet PO (23:59)
[2022-10-22] MEDS: Lactated Ringers 1,000 ML 75 ML IV (23:59)
[2022-10-23] VITALS (12 sets, daily range): BP systolic 108–149; BP diastolic 57–89; PULSE 50–64; RESP 16–18; TEMP 36.3–37.3; O2SAT 92–98; BMI 46.5
[2022-10-23] MEDS: Morphine 2 MG/ML Syringe IV ×3 (01:23→09:04)
[2022-10-23] MEDS: 0.9% Saline Lock 10 ML Syringe IV ×4 (01:23→17:48)
[2022-10-23] MEDS: dexAMETHasone 4 MG/ML Vial IV ×3 (05:38→23:38)
[2022-10-23 06:54] LABS: Absolute Lymphocyte Count 0.55 X10^3/uL (0.83-4.51); Absolute Neutrophil Count 7.8 X10^3/uL (2.0-7.7); Basophil# 0.01 X10^3/uL; Basophil% 0.1 % (0-1); Hematocrit 34.6 % (40-54); Hemoglobin 11.6 g/dL (13.0-16.5); Lymphocyte # 0.55 X10^3/ul (0.83-4.51); Lymphocyte % 6.4 % (19-41); Mean Corp Hgb Conc 33.5 g/dL (32-36); Mean Corpuscular Hgb 35.2 pg (27.0-32.0); Mean Corpuscular Volume 104.8 fL (80-94); Mean Platelet Vol. 8.8 fl (6.2-12.0); Monocyte# 0.17 X10^3/uL; NRBC Flagged by Analyzer 0 % (0-5); Neutrophil % 90.6 % (47-70); POSITIVE DIFFERENTIAL YES; Platelet Count 203 K/mm3 (150-450); RBC Distribution Width CV 13.3 % (11.6-14.6); RBC Distribution Width SD 50.9 fl (35.1-43.9); White Blood Count 8.6 K/mm3 (4.4-11.0)
--- NOTE | 2022-10-23 06:56 | HP.PCM_ITS ---
HPI - General General Date of Admission: 10/22/22 HPI Narrative ZIYAD BAER, is a 67 M who presents acute thoracic back pain with paresthesias radiating to the bilateral lower extremities for the past 4 weeks. He states onset was insidious and he denies any history of back injuries or back surgeries. He describes pain mostly in the thoracic midline that is worse with activity and movement and relieved with rest. He denies any fever chills nausea or vomiting. He does complain of episodic electric shocks which radiate to the bilateral costal regions and down the bilateral anterior thighs and anterior shins. He denies any other acute numbness tingling weakness or changes in bowel or bladder function. He has not had any back injections. He did present to the ER for these complaints yesterday where he was subsequently admitted. The medicine service requested that Ortho admit and they be consulted for medical management. [facility] Medical History (Updated 10/23/22 @ 07:[address] Dennis Perez, DO) Cancer Hypertension FELA (obstructive sleep apnea) Psoriasis Home Medications amlodipine 10 mg tablet 10 mg PO QHS 10/14/19 [History Last Taken 10/17/20] colestipol 1 gram tablet 1 gm PO QHS 10/14/19 [History Last Taken 10/21/22] escitalopram oxalate 20 mg tablet 20 mg PO DAILY 10/14/19 [History Last Taken 10/22/22] vit C 250 mg-vit E 90 mg-zinc 40 mg-copper 1 pe-bgoyss-qkksel capsule 1 cap PO BID eye health 10/14/19 [History Last Taken 10/22/22 0800] bupropion HCl 75 mg tablet 75 mg PO DAILY 09/18/22 [History Last Taken Unknown] carvedilol 25 mg tablet 25 mg PO BID 09/18/22 [History Last Taken 10/22/22] losartan 100 mg tablet 100 mg PO DAILY 09/30/22 [History Last Taken 10/22/22] hydrocodone-acetaminophen 5-325mg 5mg-325mg 1 tab PO Q8H PRN pain 4 days #12 tab s 10/01/22 [Rx Last Taken 10/22/22 0800] Allergy/AdvReac Type Severity Reaction Status Date / Time Penicillins Allergy Itching Verified 10/22/22 12:16 Family History Other Brain aneurysm Heart disease Prostate CA Surgical History History of carpal tunnel surgery History of herniorrhaphy Hx of appendectomy Hx of cholecystectomy Social History household members: spouse Smoking Status: Former smoker substance use type: does not use Vital Signs Vital Signs Vital Signs: 10/22/22 12:16 10/22/22 13:57 10/22/22 17:18 Temperature 96.6 F L 97.9 F Temperature Source Temporal Temporal Pulse Rate 65 66 Pulse Strength Respiratory Rate 14 16 Respiratory Effort Normal Non-Labored Respiratory Depth Respiratory Pattern Blood Pressure 169/84 H 158/66 H Blood Pressure Mean 112 96 Blood Pressure Source Blood Pressure Position Blood Pressure Location Pulse Ox 97 96 Oxygen Delivery Method Room Air Nasal Cannula Oxygen Flow Rate (L/min) 2 10/22/22 19:00 10/22/22 21:22 10/22/22 22:55 Temperature 97.4 F L Temperature Source Oral Pulse Rate 64 53 L Pulse Strength Respiratory Rate 18 18 Respiratory Effort Respiratory Depth Respiratory Pattern Blood Pressure 152/77 H 130/67 H Blood Pressure Mean 102 88 Blood Pressure Source Monitor Blood Pressure Position Semi-Fowlers Blood Pressure Location Right Arm Pulse Ox 95 93 Oxygen Delivery Method Nasal Cannula Room Air Bi-pap Oxygen Flow Rate (L/min) 2 3 10/22/22 22:00 10/22/22 20:52 10/23/22 02:40 Temperature Temperature Source Pulse Rate Pulse Strength Normal (2+) Respiratory Rate Respiratory Effort Normal Non-Labored Normal Non-Labored Respiratory Depth Normal Normal Respiratory Pattern Normal Normal Blood Pressure Blood Pressure Mean Blood Pressure Source Blood Pressure Position Blood Pressure Location Pulse Ox Oxygen Delivery Method Room Air CPAP Oxygen Flow Rate (L/min) 3 10/23/22 01:30 Temperature 97.3 F L Temperature Source Oral Pulse Rate 52 L Pulse Strength Respiratory Rate 18 Respiratory Effort Respiratory Depth Respiratory Pattern Blood Pressure 129/71 H Blood Pressure Mean 90 Blood Pressure Source Monitor Blood Pressure Position Semi-Fowlers Blood Pressure Location Right Arm Pulse Ox 97 Oxygen Delivery Method CPAP Oxygen Flow Rate (L/min) 3 Weight Weight: 333 lb 5.423 oz Body Mass Index (BMI) 46.5 Physical Exam Const alert, oriented x3 and no apparent distress Constitutional Narrative: Severely overweight General Appearance: cooperative, comfortable and well kempt HEENT normocephalic and head/scalp atraumatic Head and Scalp: normal to inspection Eyes EOMs intact bilaterally and conjunctivae normal Neck full ROM General: normal visual inspection Chest inspection of chest normal and palpation of chest normal Resp normal respiratory effort and normal air movement Effort and Inspection: able to speak in complete sentences Cardio regular rate and peripheral pulses 2+ throughout GI soft to palpation, non-tender and non-distended Back/Spine Cervical Spine: cervical ROM normal Thoracic Spine / Upper Back: normal to inspection Lumbar Spine / Lower Back: normal to inspection Extremity normal to inspection, full ROM, normal capillary refill, no clubbing, cyanosis or edema and no calf tenderness Skin no rashes or lesions noted General Skin Exam: no breakdown Neuro oriented x3, CN's II-XII intact bilaterally, moves all extremities, no focal motor deficits, no sensory deficits noted and deep tendon reflexes 2+ bilaterally Neuro Narrative: The patient does describe some mild tingling or decreased sensation in the bilateral feet. Motor Exam: strength 5/5 throughout and muscle tone normal throughout Results Lab / Micro Data Result Diagrams: 10/23/22 05:24 10/22/22 14:00 Labs: Laboratory Results - last 24 hr 10/22/22 14:00: WBC 10.3, RBC 3.52 L, Hgb 12.2 L, Hct 36.4 L, MCV 103.4 H, MCH 34.7 H, MCHC 33.5, RDW Std Deviation 50.5 H, RDW Coeff of Justine 13.3, Plt Count 223, MPV 8.1, Immature Gran % (Auto) 0.800, Neut % (Auto) 68.1, Lymph % (Auto) 17.7 L, [place] % (Auto) 11.4 H, Eos % (Auto) 1.6, Baso % (Auto) 0.4, Absolute Neuts (auto) 7.0, Absolute Lymphs (auto) 1.82, Nucleated RBC % 0, Acanthocytes (Spur) 10.3, ESR 20 10/22/22 14:00: Sodium 138, Potassium 3.9, Chloride 100, Carbon Dioxide 30.0, Anion Gap 8, BUN 24 H, Creatinine 1.14, Estim Creat Clear Calc 68.80, Est GFR (MDRD) Af Amer 83, Est GFR (MDRD) Non-Af 68, BUN/Creatinine Ratio 21.1 H, Glucose 112 H, Calcium 9.4, C-React Prot Ext Range < 2.90 Radiology Impression Lumbar Spine MRI 10/22/22 13:34 IMPRESSION: Multilevel degenerative changes, as described above. Electronically Signed: Jet Winkler MD at 16:56 EST Reading Location ID and State: [employer] / [employer] Tel , Service support , Thoracic Spine MRI 10/22/22 13:34 IMPRESSION: Subacute moderate compression fracture of T7 treated with vertebroplasty now with 5 mm retropulsion into the spinal canal producing moderate spinal stenosis and abutment of the spinal cord. Electronically Signed: Jet Winkler MD at 16:31 EST Reading Location ID and State: [email or web address] Tel , Service support , Assessment & Plan Assessment/Plan (1) Closed wedge compression fracture of T7 vertebra: (2) Thoracic spinal stenosis: PLAN: I had a lengthy discussion with the patient. I reviewed his thoracic MRI results with him dated 10/22/2022 which shows age-indeterminate compression d eformity of T7. This compression fracture was present on a CTA from 09/30/2022. The radiologist feels that there has been prior vertebroplasty at this level but the patient states he has never had this procedure. There is about 5 mm of retropulsion into the canal at the T7 level which I feel is causing stenosis and likely contributing to his symptoms. He feels at this point his symptoms are affecting his activities of daily life and that resulted in him presenting to the ER. After discussing the risk benefits and alternatives and answering all of his questions I recommend a percutaneous biopsy of the T7 vertebral body, as well as T7 laminectomy decompression. We discussed the procedure in detail along with expected outcome and recovery and he agrees to proceed. We will get him scheduled for this surgery. The plan postoperatively will likely be to keep him for observation overnight and discharge him home tomorrow. He understands and agrees with the treatment plan.
[2022-10-23 07:09] LABS: International Normalized Ratio 1.1; Partial Thromboplast Time 30.2 Seconds (24.1-36.2); Prothrombin Time (Protime)PT. 13.7 SECONDS (11.7-14.9)
[2022-10-23] MEDS: oxyCODONE 5 MG Tablet 10 MG PO (07:12)
[2022-10-23 07:28] LABS: Differential Indicated SCAN CRITERIA MET
[2022-10-23 09:05] LABS: Differential Comment SCANNED
[2022-10-23] MEDS: Carvedilol 25 MG Tablet PO (09:29)
--- NOTE | 2022-10-23 11:28 | OP.PCM_ITS ---
Problems Associated Problem List Diagnoses (1) Compression fracture: Report of Operation Date of Procedure: 10/23/22 Pre-Operative Diagnosis: 1. T7 compression fracture 2. Thoracic stenosis Post-Operative Diagnosis: 1. T7 compression fracture 2. Thoracic stenosis Surgery/Procedure Performed:: 1. T7 percutaneous vertebral body biopsy 2. T7 laminectomy decompression Description of Surgical Findings:: The patient is a 67-year-old male with intractable back and leg pain. Image studies confirm the above diagnoses. The patient has opted for operative treatment understanding the risk to include but not limited to infection, bleeding, damage to nerves arteries and veins, possibility of spinal fluid leak, paralysis, continued pain, need for further surgery, pulmonary embolism, heart attack, risk of stroke or Before being wheeled in the operative suite the patient was identified in the preoperative holding area. There he received preoperative IV antibiotics clindamycin and was then transferred to the operative suite. Once in the operative suite after general endotracheal anesthesia was established the patient was transferred to the [facility] operating table in the prone position. All bony prominences were padded accordingly. The thoracic spine was prepped and draped in a standard fashion. In the AP view the T7 vertebrae was squared so that the pedicles were visible. 2 Jamshidi needles were inserted into the bilateral pedicles at T7 under live fluoroscopic view in both AP and lateral to confirm placement. Once placed into the vertebral body of T7, a bone biopsy was taken as well as a sample of bone which was sent for culture and sensitivity. The Jamshidi needles were removed. An incision was made centered over the T7 level and taken down to the level of the fascia. The fascia was divided and subperiosteal dissection was taken down to the level of the bilateral facet joints. A series of Kerrisons and rongeurs was used to remove the spinous pr ocess and lamina of T7 bilaterally. No purulent material was encountered. Cultures were taken. The incision was thoroughly irrigated. Tisseel was placed over the dura as a hemostatic agent. The incision was closed with #1 Vicryl for the fascia, 2-0 Vicryl for subcutaneous and 2-0 nylon for skin. A sterile dressing was applied with 4 x 4's ABD and tape, Steri-Strips for the percutaneous sites. Sponge instrument and needle counts were correct at the end of the case. The patient was extubated and taken to the PACU without incident. Surgeon: Perez,Dennis Type of Anesthesia: General Specimen's removed: T7 vertebral body bone for pathology, culture and sensitivity. Culture swabs were also taken from the vertebral canal after the decompression Estimated Blood Loss (mL): 50 cc Fluids Replaced: 1200 cc Complications None Admit VTE Documentation VTE Present on Admission: No
--- NOTE | 2022-10-23 11:28 | DS.PCM_ITS ---
Providers Date of Admission: 10/22/22 Primary Care Physician: Dr. Arleen Hwagn MD Consultations 10/22/22 17:51 Consult: Hospitalist Routine Consulting Provider: Regine Pratt Reason for Consult: MEDICAL MANAGEMENT EMERGENT Consult: Yes MD Notified: Yes Date Notified: 10/22/22 Time Notified: 17:52 Method of Notification: Verbal Reason For Visit: THORACIC COMPRESSION FRACTURE Diagnosis Discharge Diagnosis (1) Closed wedge compression fracture of T7 vertebra: Status: Acute Code(s): S22.060A - Wedge compression fracture of T7-T8 vertebra, initial encounter for closed fracture (2) Thoracic spinal stenosis: Status: Acute Code(s): M48.04 - Spinal stenosis, thoracic region Plan: I had a lengthy discussion with the patient. I reviewed his thoracic MRI results with him dated 10/22/2022 which shows age-indeterminate compression deformity of T7. This compression fracture was present on a CTA from 09/30/2022. The radiologist feels that there has been prior vertebroplasty at this level but the patient states he has never had this procedure. There is about 5 mm of retropulsion into the canal at the T7 level which I feel is causing stenosis and likely contributing to his symptoms. He feels at this point his symptoms are affecting his activities of daily life and that resulted in him presenting to the ER. After discussing the risk benefits and alternatives and answering all of his questions I recommend a percutaneous biopsy of the T7 vertebral body, as well as T7 laminectomy decompression. We discussed the procedure in detail along with expected outcome and recovery and he agrees to proceed. We will get him scheduled for this surgery. The plan postoperatively will likely be to keep him for observation overnight and discharge him home tomorrow. He understands and agrees with the treatment plan. (3) Compression fracture: Status: Acute Medications at Discharge Home Medications amlodipine 10 mg tablet 10 mg PO QHS 10/14/19 colestipol 1 gram tablet 1 gm PO QHS 10/14/19 escitalopram oxalate 20 mg tablet 20 mg PO DAILY 10/14/19 vit C 250 mg-vit E 90 mg-zinc 40 mg-copper 1 fe-ybmhaq-sdamhc capsule 1 cap PO BID eye health 10/14/19 bupropion HCl 75 mg tablet 75 mg PO DAILY 09/18/22 carvedilol 25 mg tablet 25 mg PO BID 09/18/22 losartan 100 mg tablet 100 mg PO DAILY 09/30/22 hydrocodone-acetaminophen 5-325mg 5mg-325mg 1 - 2 ea PO Q4H PRN PRN Pain 7 days #30 tabs 10/25/22 Hospital Course Operations - (T7 percutaneous bone biopsy, laminectomy decompression) Summary of Care Provided Minutes Spent on Discharge: 15 Hospital Course: The patient is a 67-year-old male with intractable back and leg pain. He presented to the ER and was subsequently admitted on 10/22/2022. The hospitalist was consulted for medical management. He was found to have an age- indeterminate compression deformity of T7 as well as retropulsion causing thoracic stenosis. He underwent a percutaneous T7 bone biopsy and T7 la minectomy decompression on 10/23/2022. He did have an episode of hypoxia and some elevated renal function labs which were addressed by the hospitalist on postop day 1 as well as generalized weakness and was mobilizing with assistance. It was recommended that he be placed in inpatient rehab upon discharge.. No other significant medical issues were reported and he was cleared by the hospitalist to be discharged on 10/25/2022. He was subsequently discharged to rehab facility on 10/25/2022 to follow-up with Dr. Perez in 3 weeks for suture removal. Physical Exam Const alert, oriented x3 and no apparent distress General Appearance: cooperative, comfortable and well kempt HEENT normocephalic and head/scalp atraumatic Eyes EOMs intact bilaterally and conjunctivae normal Neck full ROM General: normal visual inspection Chest inspection of chest normal and palpation of chest normal Resp normal respiratory effort and normal air movement Effort and Inspection: able to speak in complete sentences Cardio regular rate and peripheral pulses 2+ throughout GI soft to palpation, non-tender and non-distended Back/Spine Back/Spine Narrative: Dressing clean dry and intact. Incision well approximated with interrupted sutures in place. No tenderness erythema drainage or fluctuance Cervical Spine: cervical ROM normal Thoracic Spine / Upper Back: normal to inspection Lumbar Spine / Lower Back: normal to inspection Extremity normal to inspection, full ROM, normal capillary refill, no clubbing, cyanosis or edema and no calf tenderness Skin no rashes or lesions noted General Skin Exam: no breakdown Neuro oriented x3, CN's II-XII intact bilaterally, moves all extremities, no focal motor deficits, no sensory deficits noted and deep tendon reflexes 2+ bilaterally Motor Exam: strength 5/5 throughout and muscle tone normal throughout Weight / BMI Weight Weight: 333 lb 5.423 oz Body Mass Index (BMI) 46.5 ABG / Lab / Microbiology Data Result Diagrams: 10/24/22 05:07 10/25/22 05:30 Laboratory: Laboratory Results - last 24 hr 10/22/22 14:00: WBC 10.3, RBC 3.52 L, Hgb 12.2 L, Hct 36.4 L, MCV 103.4 H, MCH 34.7 H, MCHC 33.5, RDW Std Deviation 50.5 H, RDW Coeff of Justine 13.3, Plt Count 223, MPV 8.1, Immature Gran % (Auto) 0.800, Neut % (Auto) 68.1, Lymph % (Auto) 17.7 L, [place] % (Auto) 11.4 H, Eos % (Auto) 1.6, Baso % (Auto) 0.4, Absolute Neuts (auto) 7.0, Absolute Lymphs (auto) 1.82, Nucleated RBC % 0, Acanthocytes (Spur) 10.3, ESR 20 10/22/22 14:00: Sodium 138, Potassium 3.9, Chloride 100, Carbon Dioxide 30.0, Anion Gap 8, BUN 24 H, Creatinine 1.14, Estim Creat Clear Calc 68.80, Est GFR (MDRD) Af Amer 83, Est GFR (MDRD) Non-Af 68, BUN/Creatinine Ratio 21.1 H, Gluco se 112 H, Calcium 9.4, C-React Prot Ext Range < 2.90 10/23/22 05:24: WBC 8.6, RBC 3.30 L, Hgb 11.6 L, Hct 34.6 L, MCV 104.8 H, MCH 35.2 H, MCHC 33.5, RDW Std Deviation 50.9 H, RDW Coeff of Justine 13.3, Plt Count 203, MPV 8.8, Immature Gran % (Auto) 0.900, Neut % (Auto) 90.6 H, Lymph % (Auto) 6.4 L, [place] % (Auto) 2.0, Eos % (Auto) 0.0, Baso % (Auto) 0.1, Absolute Neuts (a uto) 7.8 H, Absolute Lymphs (auto) 0.55 L, Nucleated RBC % 0, Differential Comment SCANNED 10/23/22 05:24: PT 13.7, INR 1.1, APTT 30.2 Radiography Diagnostic Testing: Radiology Impression Lumbar Spine MRI 10/22/22 13:34 IMPRESSION: Multilevel degenerative changes, as described above. Electronically Signed: Jet Winkler MD at 16:56 EST Reading Location ID and State: [employer] , Service support , Thoracic Spine MRI 10/22/22 13:34 IMPRESSION: Subacute moderate compression fracture of T7 treated with vertebroplasty now with 5 mm retropulsion into the spinal canal producing moderate spinal stenosis and abutment of the spinal cord. Electronically Signed: Jet Winkler MD at 16:31 EST Reading Location ID and State: [employer] , Service support , D/C Instructions Discharge Diet: No restrictions Weight Bearing Status: Weight bearing as tolerated Lifting Restrictions: No repetitive bending twisting or lifting greater than 5 pounds Call your doctor if your incision/area has: Continuous Slow Oozing, Sudden Increased Bleeding, Increased Pain/ Swelling, Increased Redness, Foul Smelling Discharge and Swelling at the incision site Call your doctor if you observe: Fever of 101 or Higher, Coldness, Increased Pain, Numbness or Tingling, Change in Color, Inability to urinate, Inability to have a bowel movement, Using more than 1 pad per hour, Shortness of breath, Dizziness, Fainting spells, Swelling in the ankles, Chest pain, Prolonged hiccupping, Increased palpitations (irregular heartbeat), Calf discomfort and Uncontrolled pain Cleanse incision/area with: Do not get Incision Wet and Keep Dressing Clean & Dry Additional Dressing/Incision Instructions: Change dressing daily with iodine gauze and tape. Rice dressing to shower Please Follow Up With: Dennis Perez DO When: 3 weeks Meaningful Use Info Meaningful Use Diagnoses (Choose all that apply): None applicable Discharge Plan Admission Admit Date/Time: 10/22/22 20:07 Attending Provider: Dennis Perez Primary Care Provider: Arleen Hwang Consulting Providers: Regine Pratt ; Janel Wright ; Janel Palmer ; Mona Sims ; Jenni Frank ; Micheal Young ; Rlyey Kilgore ; Merrick Smith ; Kareem Hill ; Pancho Hartmann ; Perfecto Prajapati ; Roland Castillo ; Gerardo Lynn ; Anastasiia Hdz ; Judd Dalton ; Keith Pink ; Erick Pires ; Apryl Fung ; Noah Babcock ; Alyssia Augustine 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 Discharge Orders/Prescriptions Prescriptions: New hydrocodone-acetaminophen 5-325 mg tablet 1 - 2 ea PO Q4H PRN PRN (Reason: Pain) 7 Days Qty: 30 0RF Continued amlodipine 10 MG tablet 10 mg PO QHS colestipol 1 GM tablet 1 gm PO QHS escitalopram oxalate 20 MG tablet 20 mg PO DAILY vit C,U-Mx-rdjcw-lutein-zeaxan 1 EACH capsule 1 cap PO BID carvedilol 25 mg tablet 25 mg PO BID Label Comments: TAKE 1 TABLET BY MOUTH TWICE A DAY WITH MEALS bupropion HCl 75 mg tablet 75 mg PO DAILY Label Comments: START WITH TAKING 1 TABLET DAILY AND INCREASE TO 1 TABLET TWICE DAILY IF TOLERATED losartan 100 mg tablet 100 mg PO DAILY Label Comments: TAKE 1 TABLET BY MOUTH EVERY DAY Discontinued hydrocodone-acetaminophen 5-325 mg tablet 1 tab PO Q8H PRN (Reason: pain) 4 Days Qty: 12 0RF Referrals / Follow Up: Arleen Hwang MD [Primary Care Provider] - Disposition Disposition (needs filled in before D/C Order can be placed): Home, Self Care
--- NOTE | 2022-10-23 11:30 | BONBX_PTH ---
PATIENT: ZIYAD BAER Jr. LOC: MS3 U#:[id number] AGE/SX: 67/M ROOM: CO318 RE10/22/[address]: Dr. Dennis Perez DO : 1955 BED: 1 DIS: 10/25/2022 SPEC #: [id number] RECD: 10/23/22 17:03 STATUS: CHAITANYA REQ #: [id number] TERESA: 10/23/22 11:[address]: Dennis Perez DEPT: SURGICAL PATHOLOGY RECD BY: Franki Kiser ENTERED: 10/24/22 08:08 SP TYPE: Bone OTHR DR: MD Dr. Janel Gastelum MD Dr. Autumn L White, MD Dr. Chitra Ganta, MD Dr. Mary Catherine Sementi, MD Ryley Jones Dr., MD Dr. Eric Jopperi, MD Dr. Pancho White Dr., MD Dr. James Mooney, MD Dr. Jonathan Vogt, DO Dr. Regine Pratt, DO Dr. Gerardo Lynn, DO MD Dr. Judd Barba MD Dr. Prakash Chand, MD Dr. Paul Nielsen, MD Dr. Paige Pierce, MD Dr. Ryan Burkholder, MD Jessica Franklin, TRANSISTOR TESTER-C Tissues: Vertebra, NOS Procedures: Decalcification bone/plaque Surgery Specimen Level V HEADER OPERATION: Laminectomy, micro decompression T7 PRE-OP DIAGNOSIS: Closed wedge compression fracture of T7 vertebra, thoracic spinal stenosis TISSUE SUBMITTED: T7 Vertebral bone MICROSCOPIC DIAGNOSIS T7 vertebral body, bone biopsy: Benign osseocartilaginous tissue. POLO:andrew 10/25/2022 MICROSCOPIC DESCRIPTION Slides are reviewed. GROSS DESCRIPTION Received in fixative is one container labeled with the patient's name and designated T7 vertebral bone. The specimen consists of a fragment of bone with blood clot measuring in aggregate 1 x 0.2 x 0.1 cm. The entire specimen is submitted in one cassette after decalcification. / PETAR:andrew 10/24/2022 TC:5 CPT: 66273, 32127
--- NOTE | 2022-10-23 13:13 | PCM.PN.ORT ---
Subjective Subjective The patient was seen and examined postoperatively in the PACU. He is resting comfortably. His pain is controlled. He denies any acute numbness tingling or weakness Objective Data Objective Data Vital Signs: Vital Signs Temp Pulse Resp BP Pulse Ox O2 Del Method O2 Flow Rate 98.3 F 56 L 18 149/84 H 98 Room Air 3 10/23/22 09:25 10/23/22 09:25 10/23/22 09:25 10/23/22 09:25 10/23/22 09:25 10/23/22 09:25 10/23/22 02:40 Oxygen Flow Rate (L/min) 3 Oxygen Delivery Method Room Air Weight: 333 lb 5.423 oz Body Mass Index (BMI) 46.5 Intake & Output: Intake and Output for Last 24 Hours 10/21/22 10/22/22 10/23/22 23:59 23:59 23:59 Output Total 675 / 675 Balance -675 / -675 Lab / Micro Data Result Diagrams: 10/24/22 05:07 10/24/22 05:07 Labs: Laboratory Results - last 24 hr 10/22/22 14:00: WBC 10.3, RBC 3.52 L, Hgb 12.2 L, Hct 36.4 L, MCV 103.4 H, MCH 34.7 H, MCHC 33.5, RDW Std Deviation 50.5 H, RDW Coeff of Justine 13.3, Plt Count 223, MPV 8.1, Immature Gran % (Auto) 0.800, Neut % (Auto) 68.1, Lymph % (Auto) 17.7 L, [place] % (Auto) 11.4 H, Eos % (Auto) 1.6, Baso % (Auto) 0.4, Absolute Neuts (auto) 7.0, Absolute Lymphs (auto) 1.82, Nucleated RBC % 0, Acanthocytes (Spur) 10.3, ESR 20 10/22/22 14:00: Sodium 138, Potassium 3.9, Chloride 100, Carbon Dioxide 30.0, Anion Gap 8, BUN 24 H, Creatinine 1.14, Estim Creat Clear Calc 68.80, Est GFR (MDRD) Af Amer 83, Est GFR (MDRD) Non-Af 68, BUN/Creatinine Ratio 21.1 H, Glucose 112 H, Calcium 9.4, C-React Prot Ext Range < 2.90 10/23/22 05:24: WBC 8.6, RBC 3.30 L, Hgb 11.6 L, Hct 34.6 L, MCV 104.8 H, MCH 35.2 H, MCHC 33.5, RDW Std Deviation 50.9 H, RDW Coeff of Justine 13.3, Plt Count 203, MPV 8.8, Immature Gran % (Auto) 0.900, Neut % (Auto) 90.6 H, Lymph % (Auto) 6.4 L, [place] % (Auto) 2.0, Eos % (Auto) 0.0, Baso % (Auto) 0.1, Absolute Neuts (auto) 7.8 H, Absolute Lymphs (auto) 0.55 L, Nucleated RBC % 0, Differential Comment SCANNED 10/23/22 05:24: PT 13.7, INR 1.1, APTT 30.2 Radiography Diagnostic Testing: Radiology Impression Lumbar Spine MRI 10/22/22 13:34 IMPRESSION: Multilevel degenerative changes, as described above. Electronically Signed: Jet Winkler MD at 16:56 EST Reading Location ID and State: [id number] Tel , Service support , Thoracic Spine MRI 10/22/22 13:34 IMPRESSION: Subacute moderate compression fracture of T7 treated with vertebroplasty now with 5 mm retropulsion into the spinal canal producing moderate spinal stenosis and abutment of the spinal cord. Electronically Signed: Jet Winkler MD at 16:31 EST Reading Location ID and State: [employer] / [employer] , Service support , Physical Exam Const alert, oriented x3 and no apparent distress General Appearance: cooperative, comfortable and well kempt HEENT normocephalic and head/scalp atraumatic Eyes EOMs intact bilaterally and conjunctivae normal Neck full ROM General: normal visual inspection Chest inspection of chest normal and palpation of chest normal Resp normal respiratory effort and normal air movement Cardio regular rate, regular rhythm and peripheral pulses 2+ throughout GI soft to palpation, non-tender and non-distended Back/Spine Back/Spine Narrative: Dressing clean dry and intact Cervical Spine: cervical ROM normal Thoracic Spine / Upper Back: normal to inspection Lumbar Spine / Lower Back: normal to inspection Extremity normal to inspection, full ROM, normal capillary refill, no clubbing, cyanosis or edema and no calf tenderness Skin no rashes or lesions noted General Skin Exam: no breakdown Neuro oriented x3, CN's II-XII intact bilaterally, moves all extremities, no focal motor deficits, no sensory deficits noted and deep tendon reflexes 2+ bilaterally Motor Exam: strength 5/5 throughout and muscle tone normal throughout Assessment & Plan Assessment/Plan (1) Compression fracture: (2) Thoracic spinal stenosis: PLAN: Plan Okay to admit to floor See orders Discharge planning, likely home tomorrow
[2022-10-23] MEDS: Clindamycin 900 MG/50 ML BAG 75 MG IV ×2 (13:14→20:49)
--- NOTE | 2022-10-23 13:20 | RAD_ITS ---
INDICATION: LAMINECTOMY, LUMBAR MICRO DECOMPRESSION, T7 EXAMINATION/TECHNIQUE: X-RAY - XR Spine Thoracic 2 Views COMPARISON: none FINDINGS: 3 intraoperative films taken for hardware guidance under fluoroscopy during a thoracic laminectomy with posterior fusion. RAD/Thoracic Spine 2 Views IMPRESSION: Successful thoracic laminectomy with posterior fusion. Refer to postoperative note for further details. Electronically Signed: Rodolfo Whitehead MD at 19:41 EST ,
[2022-10-23] MEDS: THROMBIN (RECOMBINANT) 20,000 UNIT VIAL 20000 UNIT TOPICAL (13:54)
--- NOTE | 2022-10-23 14:16 | PN.HOSP_ITS ---
Subjective Subjective Patient states he is feeling well other than his back pain. He has had less shocking sensation to his lower extremities since being admitted. Plan is for OR later today. Objective Data Objective Data Vital Signs: Vital Signs Temp Pulse Resp BP Pulse Ox O2 Del Method O2 Flow Rate 98.3 F 56 L 18 149/84 H 98 Room Air 3 10/23/22 09:25 10/23/22 09:25 10/23/22 09:25 10/23/22 09:25 10/23/22 09:25 10/23/22 09:25 10/23/22 02:40 Oxygen Flow Rate (L/min) 3 Oxygen Delivery Method Room Air Weight: 151.2 kg Body Mass Index (BMI) 46.5 Intake & Output: Intake and Output for Last 24 Hours 10/21/22 10/22/22 10/23/22 23:59 23:59 23:59 Output Total 675 / 675 Balance -675 / -675 Lab / Micro Data Result Diagrams: 10/23/22 05:24 10/22/22 14:00 Labs: Laboratory Results - last 24 hr 10/22/22 14:00: Acanthocytes (Spur) 10.3, ESR 20 10/22/22 14:00: Sodium 138, Potassium 3.9, Chloride 100, Carbon Dioxide 30.0, Anion Gap 8, BUN 24 H, Creatinine 1.14, Estim Creat Clear Calc 68.80, Est GFR (MDRD) Af Amer 83, Est GFR (MDRD) Non-Af 68, BUN/Creatinine Ratio 21.1 H, Glucose 112 H, Calcium 9.4, C-React Prot Ext Range < 2.90 10/23/22 05:24: WBC 8.6, RBC 3.30 L, Hgb 11.6 L, Hct 34.6 L, MCV 104.8 H, MCH 35.2 H, MCHC 33.5, RDW Std Deviation 50.9 H, RDW Coeff of Justine 13.3, Plt Count 203, MPV 8.8, Immature Gran % (Auto) 0.900, Neut % (Auto) 90.6 H, Lymph % (Auto) 6.4 L, [place] % (Auto) 2.0, Eos % (Auto) 0.0, Baso % (Auto) 0.1, Absolute Neuts (auto) 7.8 H, Absolute Lymphs (auto) 0.55 L, Nucleated RBC % 0, Differential Comment SCANNED 10/23/22 05:24: PT 13.7, INR 1.1, APTT 30.2 Radiography Diagnostic Testing: Radiology Impression Lumbar Spine MRI 10/22/22 13:34 IMPRESSION: Multilevel degenerative changes, as described above. Electronically Signed: Jet Winkler MD at 16:56 EST Reading Location ID and State: [employer] , Service support , Thoracic Spine MRI 10/22/22 13:34 IMPRESSION: Subacute moderate compression fracture of T7 treated with vertebroplasty now with 5 mm retropulsion into the spinal canal producing moderate spinal stenosis and abutment of the spinal cord. Electronically Signed: Jet Winkler MD at 16:31 EST Reading Location ID and State: [employer] , Service support , Physical Exam Const alert, oriented x3, no apparent distress and well nourished Constitutional Narrative: Morbidly obese, middle-aged, white male sitting up on the edge of the bed, appears comfortable at this time, nontoxic, currently on room air HEENT head/scalp atraumatic and moist oral mucous membranes Resp normal respiratory effort, no retractions, no use of accessory muscles and clear to auscultation bilaterally Resp Narrative: Diffusely diminished but clear, breath sounds are distant secondary to body habitus Auscultation: Negative for crackles, rhonchi or wheezes Cardio regular rate, regular rhythm, S1 normal heart sound, S2 normal heart sound, no murmurs, no rub, no gallops and no clicks GI normal to inspection, nondistended, normoactive bowel sounds, soft to palpation, non-tender and non-distended GI Narrative: Large protuberant abdomen, umbilical hernia Palpation: hernia Extremity no clubbing, cyanosis or edema Extremity Narrative: Scattered ecchymosis from recent falls Neuro moves all extremities and no focal motor deficits Speech: speech normal Assessment & Plan Assessment/Plan (1) Closed wedge compression fracture of T7 vertebra: (2) 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: (3) Severe back pain: (4) Hypoxia: PLAN: Plan Thoracic compression fracture with 5 mm retropulsion and spinal cord compression -Management per primary service -Oxycodone -As needed morphine for breakthrough pain -Gabapentin 300 mg 3 times daily -Lidocaine patch -OR later today -Patient had recent stress test that was unremarkable as well as an unremarkable echocardiogram Chronic hypoxia status post COVID infection -Had COVID-19 at the end of August -Was started on home O2 -Patient is now satting 98% on room air -Would recommend extubation to CPAP after surgery with at least 2 to 4 L bleed postoperatively Hypertension -Continue home carvedilol -Continue home losartan -Continue home amlodipine -Blood pressures are up some but will need to trend -Patient may need additional medication for his blood pressure prior to discharge -As needed hydralazine for systolic blood pressure greater than 160 Aortic aneurysm -Stable ascending aortic aneurysm noted on most recent CTA -4.4 cm -Control blood pressure -Recommend outpatient follow-up FELA -Continue home CPAP Depression -Continue home bupropion Morbid obesity -BMI 42.5 -Recommend weight loss -Complicates treatment, prognosis, outcomes DVT prophylaxis -We will hold for now with surgery pending -Per orthopedic surgery after intervention -SCDs Charges/Coding Visit Charges OBSV E&M: 76219 Subsequent observation care L2
[2022-10-23] MEDS: Bupivacaine Mpf 0.5% 30 ML VIAL (15:15)
[2022-10-23] MEDS: Lactated Ringers 1,000 ML 100 ML IV ×2 (15:40→17:42)
[2022-10-23] MEDS: Metaxalone 800 MG Tablet PO (16:34)
--- NOTE | 2022-10-23 16:34 | CASEMGMT ---
TONY JOVEL NOTE: Pt has not returned to room from OR yet. Unable to discuss discharge plan w/pt and unable to complete KOEHLER form. RN CM to f/u with pt tomorrow, when he is available. Briseyda BSN TONY CM
[2022-10-23] MEDS: oxyCODONE 5 MG Tablet PO ×2 (17:47→21:35)
[2022-10-23] MEDS: Gabapentin 300 MG Capsule PO (17:47)
[2022-10-23] MEDS: Morphine 4 MG/ML Syringe IV ×2 (18:54→23:37)
[2022-10-23] MEDS: Acetaminophen 500 MG Tablet 1000 MG PO (20:51)
[2022-10-23] MEDS: Ensure Plus High Protein 120 ML LIQUID PO (20:51)
[2022-10-23] MEDS: Multivitamin (Healthy Eyes) Capsule 1 CAP PO (20:52)
[2022-10-23] MEDS: Colestipol 1 GM TABLET PO (20:52)
[2022-10-23] MEDS: Lactated Ringers 1,000 ML 75 ML IV (23:39)
[2022-10-24] VITALS (9 sets, daily range): BP systolic 104–154; BP diastolic 61–84; PULSE 53–71; RESP 16–18; TEMP 36.6–37.1; O2SAT 3–98
[2022-10-24] MEDS: Morphine 4 MG/ML Syringe IV ×7 (01:58→21:11)
[2022-10-24] MEDS: dexAMETHasone 4 MG/ML Vial IV (04:32)
[2022-10-24] MEDS: Acetaminophen 500 MG Tablet 1000 MG PO ×3 (04:33→21:10)
[2022-10-24] MEDS: Clindamycin 900 MG/50 ML BAG 75 MG IV (04:38)
[2022-10-24 05:35] LABS: Absolute Lymphocyte Count 0.57 X10^3/uL (0.83-4.51); Absolute Neutrophil Count 13.3 X10^3/uL (2.0-7.7); Basophil# 0.02 X10^3/uL; Basophil% 0.1 % (0-1); Hematocrit 30.6 % (40-54); Hemoglobin 10.4 g/dL (13.0-16.5); Lymphocyte # 0.57 X10^3/ul (0.83-4.51); Lymphocyte % 3.7 % (19-41); Mean Corpuscular Hgb 35.7 pg (27.0-32.0); Mean Corpuscular Volume 105.2 fL (80-94); Mean Platelet Vol. 8.4 fl (6.2-12.0); Monocyte# 1.26 X10^3/uL; Monocyte% 8.3 % (0-10); NRBC Flagged by Analyzer 0 % (0-5); Neutrophil # 13.26 X10^3/uL (2.7-7.7); Neutrophil % 86.9 % (47-70); POSITIVE DIFFERENTIAL YES; Platelet Count 191 K/mm3 (150-450); RBC Distribution Width CV 13.3 % (11.6-14.6); RBC Distribution Width SD 51.4 fl (35.1-43.9); Red Blood Count 2.91 M/mm3 (4.6-6.2); White Blood Count 15.3 K/mm3 (4.4-11.0)
[2022-10-24 05:36] LABS: Differential Indicated SCAN CRITERIA MET
[2022-10-24 05:56] LABS: Anion Gap 8 (5-15); BUN 33 mg/dL (7-18); BUN/Creat Ratio 22.8 RATIO (10-20); Calcium,Total 9.1 mg/dL (8.5-10.1); Chloride 100 mmol/L (98-107); Creatinine, Serum 1.45 mg/dL (0.70-1.30); EST Glomerular Filtration Rate 52 mL/min (>60); Est Glom Filt Rate - Afr Amer 63 mL/min (>60); Estimated Creatinine Clearance 54.09 ml/min; Glucose 146 mg/dL (74-106); Potassium 4.5 mmol/L (3.5-5.1); Sodium Level 136 mmol/L (136-145)
[2022-10-24 05:59] LABS: Macrocytosis 2+
[2022-10-24] MEDS: Ensure Surgery 237 ML LIQUID PO ×3 (08:24→17:03)
[2022-10-24] MEDS: Escitalopram Oxalate 20 MG Tablet PO (08:30)
[2022-10-24] MEDS: Gabapentin 300 MG Capsule PO ×3 (08:30→17:03)
[2022-10-24] MEDS: Carvedilol 25 MG Tablet PO ×2 (08:30→21:09)
[2022-10-24] MEDS: buPROPion 75 MG Tablet PO (08:31)
[2022-10-24] MEDS: Multivitamin (Healthy Eyes) Capsule 1 CAP PO ×2 (08:31→21:09)
[2022-10-24] MEDS: Losartan Potassium 100 MG Tablet PO (08:31)
[2022-10-24] MEDS: 0.9% Saline Lock 10 ML Syringe IV ×4 (08:32→18:28)
[2022-10-24] MEDS: Lactated Ringers 1,000 ML 15 ML IV (08:32)
--- NOTE | 2022-10-24 10:21 | NURSING ---
Emergency documentation
--- NOTE | 2022-10-24 11:45 | CASEMGMT ---
Addendum entered by Ember Scott 10/24/22 13:01: Jennifer messaged back and unable to accept pt on RU or TCU. EBONIE notified pt and asked for alternative choices. Pt stated would need some time to review list and make other choices. TEJAS Mcintosh Original Note: Social Work? SW in to meet with pt following update from Dr. Pratt and PT/Ot team that pt will need placement at nursing facility. SW introduced self and role at the hospital. Pt agreeable to discussing discharge planning. A list of SNF providers including quality and resource use data and consistent with the patient?s preferred geographic region, medical needs, and insurance network were provided from the [employer] Guide. Pt reviewed list and shared [facility] rehab/TCU would be preference. EBONIE sent referral to Jennifer at [facility] Jennifer to review and melani determination. PLAN: [facility] RU or TCU, pending acceptance TEJAS Mcintosh?
--- NOTE | 2022-10-24 11:49 | PN.ORTHO_ITS ---
Subjective Subjective The patient was seen and examined postoperative day 1. He is sitting in a chair resting comfortably. He has no complaints of pain. He states that his electric shocks that were in his back and bilateral lower extremities prior to surgery have resolved completely. He denies any other complaints including acute numbness tingling weakness or changes in bowel or bladder function. Objective Data Objective Data Vital Signs: Vital Signs Temp Pulse Resp BP Pulse Ox O2 Del Method O2 Flow Rate 97.9 F 53 L 18 154/84 H 98 Nasal Cannula 2 10/24/22 08:45 10/24/22 08:45 10/24/22 08:45 10/24/22 08:45 10/24/22 08:45 10/24/22 08:45 10/24/22 08:45 FiO2 97 10/23/22 19:45 Oxygen Flow Rate (L/min) 2 Oxygen Delivery Method Nasal Cannula Weight: 333 lb 5.423 oz Body Mass Index (BMI) 46.5 Intake & Output: Intake and Output for Last 24 Hours 10/22/22 10/23/22 10/24/22 23:59 23:59 23:59 Intake Total 2103.33 / 2503.33 2552.5 / 2552.5 Output Total 975 / 975 675 / 675 Balance 1128.33 / 1528.33 1877.5 / 1877.5 Lab / Micro Data Result Diagrams: 10/24/22 05:07 10/24/22 05:07 Labs: Laboratory Results - last 24 hr 10/24/22 05:07: WBC 15.3 H, RBC 2.91 L, Hgb 10.4 L, Hct 30.6 L, MCV 105.2 H, MCH 35.7 H, MCHC 34.0, RDW Std Deviation 51.4 H, RDW Coeff of Justine 13.3, Plt Count 191, MPV 8.4, Immature Gran % (Auto) 1.000 H, Neut % (Auto) 86.9 H, Lymph % (Auto) 3.7 L, [place] % (Auto) 8.3, Eos % (Auto) 0.0, Baso % (Auto) 0.1, Absolute Neuts (auto) 13.3 H, Absolute Lymphs (auto) 0.57 L, Nucleated RBC % 0, Mac rocytosis 2+ 10/24/22 05:07: Sodium 136, Potassium 4.5, Chloride 100, Carbon Dioxide 28.0, Anion Gap 8, BUN 33 H, Creatinine 1.45 H, Estim Creat Clear Calc 54.09, Est GFR (MDRD) Af Amer 63, Est GFR (MDRD) Non-Af 52 L, BUN/Creatinine Ratio 22.8 H, Glucose 146 H, Calcium 9.1 Micro: Microbiology 10/23/22 Unknown Wound - Back Gram Stain - Final 10/23/22 Unknown Wound - Back Wound Culture - Preliminary No growth-Final to follow 10/23/22 Unknown Bone - Back Gram Stain - Final 10/23/22 Unknown Bone - Back Wound Culture - Preliminary No growth-Final to follow Radiography Diagnostic Testing: Radiology Impression Thoracic Spine X-Ray 10/23/22 13:20 IMPRESSION: Successful thoracic laminectomy with posterior fusion. Refer to postoperative note for further details. Electronically Signed: Rodolfo Whitehead MD at 19:41 EST , Physical Exam Const alert, oriented x3 and no apparent distress General Appearance: cooperative, comfortable and well kempt HEENT normocephalic and head/scalp atraumatic Eyes EOMs intact bilaterally and conjunctivae normal Neck full ROM General: normal visual inspection Chest inspection of chest normal and palpation of chest normal Resp normal respiratory effort and normal air movement Effort and Inspection: able to speak in complete sentences Cardio regular rate and peripheral pulses 2+ throughout GI soft to palpation, non-tender and non-distended Back/Spine Back/Spine Narrative: Dressing clean dry and intact Cervical Spine: cervical ROM normal Thoracic Spine / Upper Back: normal to inspection Lumbar Spine / Lower Back: normal to inspection Extremity normal to inspection, full ROM, normal capillary refill, no clubbing, cyanosis or edema and no calf tenderness Skin no rashes or lesions noted General Skin Exam: no breakdown Neuro oriented x3, CN's II-XII intact bilaterally, moves all extremities, no focal motor deficits, no sensory deficits noted and deep tendon reflexes 2+ bilaterally Motor Exam: strength 5/5 throughout and muscle tone normal throughout Assessment & Plan Assessment/Plan (1) Compression fracture: (2) Thoracic spinal stenosis: PLAN: Plan I had a lengthy discussion with the patient. He is doing very well status post T7 decompression. We are still awaiting the results of his biopsy and cultures which will likely take a few days. He is okay to be discharged from spine standpoint. He has sutures that need removed in 3 weeks. We will set him up with a clinic appointment to see me for this. Otherwise medical management per hospitalist. It sounds like the patient will likely need placed in inpatient rehab facility upon discharge. The patient understands and agrees with the treatment plan.
--- NOTE | 2022-10-24 13:09 | CASEMGMT ---
TONY CM in to discuss KOEHELR form with patient. RN CM explained KOEHLER form, patient voiced understanding. Pt signed form and filed in chart. Pt provided with a copy of signed KOEHLER form. Patient had no further questions or concerns at this time.
--- NOTE | 2022-10-24 13:15 | PN.HOSP_ITS ---
Subjective Subjective Patient having some considerable pain and weakness in his lower extremities postoperatively. He states he is not having any more of that shooting pain that he was having preoperatively. He just thinks he is overall debilitated. He is amenable to going to a facility prior to going home if needed. Therapy is to s ee him later today to determine his needs and then case management will make referrals based on those findings. Objective Data Objective Data Vital Signs: Vital Signs Temp Pulse Resp BP Pulse Ox O2 Del Method O2 Flow Rate 97.9 F 53 L 18 154/84 H 93 Nasal Cannula 2 10/24/22 08:45 10/24/22 08:45 10/24/22 08:45 10/24/22 08:45 10/24/22 11:41 10/24/22 08:45 10/24/22 11:45 FiO2 97 10/23/22 19:45 Oxygen Flow Rate (L/min) 2 Oxygen Delivery Method Nasal Cannula Weight: 151.2 kg Body Mass Index (BMI) 46.5 Intake & Output: Intake and Output for Last 24 Hours 10/22/22 10/23/22 10/24/22 23:59 23:59 23:59 Intake Total 2103.33 / 2503.33 2552.5 / 2552.5 Output Total 975 / 975 675 / 675 Balance 1128.33 / 1528.33 1877.5 / 1877.5 Lab / Micro Data Result Diagrams: 10/24/22 05:07 10/24/22 05:07 Labs: Laboratory Results - last 24 hr 10/24/22 05:07: WBC 15.3 H, RBC 2.91 L, Hgb 10.4 L, Hct 30.6 L, MCV 105.2 H, MCH 35.7 H, MCHC 34.0, RDW Std Deviation 51.4 H, RDW Coeff of Justine 13.3, Plt Count 191, MPV 8.4, Immature Gran % (Auto) 1.000 H, Neut % (Auto) 86.9 H, Lymph % (Auto) 3.7 L, [place] % (Auto) 8.3, Eos % (Auto) 0.0, Baso % (Auto) 0.1, Absolute Neuts (auto) 13.3 H, Absolute Lymphs (auto) 0.57 L, Nucleated RBC % 0, Macrocytosis 2+ 10/24/22 05:07: Sodium 136, Potassium 4.5, Chloride 100, Carbon Dioxide 28.0, Anion Gap 8, BUN 33 H, Creatinine 1.45 H, Estim Creat Clear Calc 54.09, Est GFR (MDRD) Af Amer 63, Est GFR (MDRD) Non-Af 52 L, BUN/Creatinine Ratio 22.8 H, Glucose 146 H, Calcium 9.1 Micro: Microbiology 10/23/22 Unknown Wound - Back Gram Stain - Final 10/23/22 Unknown Wound - Back Wound Culture - Preliminary No growth-Final to follow 10/23/22 Unknown Bone - Back Gram Stain - Final 10/23/22 Unknown Bone - Back Wound Culture - Preliminary No growth-Final to follow Radiography Diagnostic Testing: Radiology Impression Thoracic Spine X-Ray 10/23/22 13:20 IMPRESSION: Successful thoracic laminectomy with posterior fusion. Refer to postoperative note for further details. Electronically Signed: Rodolfo Whitehead MD at 19:41 EST , Physical Exam Const alert, oriented x3, no apparent distress and well nourished Constitutional Narrative: Morbidly obese, middle-aged, white male sitting up in bed, appears comfortable at this time, nontoxic, currently on 2 L nasal cannula HEENT head/scalp atraumatic and moist oral mucous membranes HEENT Narrative: Mallampati 3-4, no thrush Head and Scalp: normocephalic Resp normal respiratory effort, no retractions, no use of accessory muscles and clear to auscultation bilaterally Resp Narrative: Diffusely diminished but clear, breath sounds are distant secondary to body habitus Auscultation: Negative for crackles, rhonchi or wheezes Cardio regular rate, regular rhythm, S1 normal heart sound, S2 normal heart sound, no murmurs, no rub, no gallops and no clicks GI normal to inspection, nondistended, normoactive bowel sounds, soft to palpation, non-tender and non-distended GI Narrative: Large protuberant abdomen, umbilical hernia Palpation: hernia Extremity no clubbing, cyanosis or edema Extremity Narrative: Scattered ecchymosis from recent falls Neuro oriented x3, moves all extremities and no focal motor deficits Speech: speech normal Assessment & Plan Assessment/Plan (1) Closed wedge compression fracture of T7 vertebra: (2) 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: (3) Severe back pain: (4) Hypoxia: (5) JOSE (acute kidney injury): PLAN: Plan T7 thoracic compression fracture with 5 mm retropulsion and spinal cord compression -Postop day 1 percutaneous vertebral body biopsy and T7 laminectomy decompression -Oxycodone -As needed morphine for breakthrough pain -Gabapentin 300 mg 3 times daily -Lidocaine patch -Patient had recent stress test that was unremarkable as well as an unremarkable echocardiogram -Management per orthopedic surgery Chronic hypoxia status post COVID infection -Had COVID-19 at the end of August -Was started on home O2 -Patient was on room air yesterday today postoperatively he is on 2 L supplemental nasal cannula and to be weaned -Strongly encourage incentive spirometry and discussed reasons why with the patient JOSE -Suspect related to volume and possible hypotension in the OR--> it does look like last evening his blood pressures were lower than normal for him -We will continue supplemental fluids at this time -If resolved will discontinue IV fluids tomorrow -Okay to continue Cozaar for now Hypertension -Continue home carvedilol -Continue home losartan -Continue home amlodipine -Blood pressures are up some but will need to trend -Patient may need additional medication for his blood pressure prior to discharge -As needed hydralazine for systolic blood pressure greater than 160 Aortic aneurysm -Stable ascending aortic aneurysm noted on most recent CTA -4.4 cm -Control blood pressure -Recommend outpatient follow-up FELA -Continue home CPAP Depression -Continue home bupropion Morbid obesity -BMI 42.5 -Recommend weight loss -Complicates treatment, prognosis, outcomes DVT prophylaxis -We will hold for now with surgery pending -Per orthopedic surgery after intervention -SCDs Charges/Coding Visit Charges OBSV E&M: 20093 Subsequent observation care L2
--- NOTE | 2022-10-24 14:28 | CASEMGMT ---
Discharge Transportation Inspector This property underwriter sent referral to [facility] via [facility]. Alexander GIRALDO [id number] Operator
--- NOTE | 2022-10-24 15:09 | CASEMGMT ---
Discharge Real Estate Paralegal [facility] accepted patient. Alexander GIRALDO Dental Director
[2022-10-24 15:54] LABS: Anion Gap 8 (5-15); BUN 43 mg/dL (7-18); BUN/Creat Ratio 26.2 RATIO (10-20); Chloride 99 mmol/L (98-107); Creatinine, Serum 1.64 mg/dL (0.70-1.30); EST Glomerular Filtration Rate 45 mL/min (>60); Est Glom Filt Rate - Afr Amer 54 mL/min (>60); Estimated Creatinine Clearance 47.83 ml/min; Glucose 129 mg/dL (74-106); Potassium 4.5 mmol/L (3.5-5.1); Sodium Level 136 mmol/L (136-145)
[2022-10-24] MEDS: Lactated Ringers 1,000 ML 100 ML IV (18:34)
[2022-10-24] MEDS: amLODIPine 10 MG Tablet PO (21:12)
[2022-10-24] MEDS: Colestipol 1 GM TABLET PO (21:12)
[2022-10-24] MEDS: Ensure Plus High Protein 120 ML LIQUID PO (21:12)
[2022-10-25] VITALS (9 sets, daily range): BP systolic 109–168; BP diastolic 54–91; PULSE 52–61; RESP 16–18; TEMP 36.3–36.7; O2SAT 91–97
[2022-10-25] MEDS: Morphine 4 MG/ML Syringe IV ×6 (00:08→18:48)
[2022-10-25] MEDS: Lactated Ringers 1,000 ML 100 ML IV (02:53)
[2022-10-25] MEDS: Acetaminophen 500 MG Tablet 1000 MG PO ×2 (05:02→14:17)
[2022-10-25] MEDS: oxyCODONE 5 MG Tablet PO (05:11)
[2022-10-25 06:39] LABS: Anion Gap 6 (5-15); BUN 40 mg/dL (7-18); BUN/Creat Ratio 32.5 RATIO (10-20); Calcium,Total 9.2 mg/dL (8.5-10.1); Chloride 101 mmol/L (98-107); Creatinine, Serum 1.23 mg/dL (0.70-1.30); EST Glomerular Filtration Rate 63 mL/min (>60); Est Glom Filt Rate - Afr Amer 76 mL/min (>60); Estimated Creatinine Clearance 63.77 ml/min; Glucose 126 mg/dL (74-106); Potassium 4.2 mmol/L (3.5-5.1); Sodium Level 136 mmol/L (136-145)
[2022-10-25] MEDS: hydrALAZINE 20 MG/ML Vial 5 MG IV (08:03)
[2022-10-25] MEDS: Carvedilol 25 MG Tablet PO (08:04)
[2022-10-25] MEDS: Gabapentin 300 MG Capsule PO ×3 (08:04→17:39)
[2022-10-25] MEDS: Multivitamin (Healthy Eyes) Capsule 1 CAP PO (08:04)
[2022-10-25] MEDS: buPROPion 75 MG Tablet PO (08:05)
[2022-10-25] MEDS: Lidocaine 5% Patch 1 PATCH TOPICAL (08:05)
[2022-10-25] MEDS: Ensure Surgery 237 ML LIQUID PO ×3 (08:12→17:39)
[2022-10-25] MEDS: Escitalopram Oxalate 20 MG Tablet PO (08:13)
[2022-10-25] MEDS: oxyCODONE 5 MG Tablet 10 MG PO ×2 (10:14→14:17)
--- NOTE | 2022-10-25 12:11 | PN.HOSP_ITS ---
Subjective Subjective No significant issues overnight. Still experiencing some mid back pain. Shooting pain in legs is resolved. Overall still weak. Has been accepted at nursing facility and pending transfer. Objective Data Objective Data Vital Signs: Vital Signs Temp Pulse Resp BP Pulse Ox O2 Del Method O2 Flow Rate 97.4 F L 52 L 16 109/54 L 97 Bi-pap 2 10/25/22 11:24 10/25/22 11:24 10/25/22 11:24 10/25/22 11:24 10/25/22 11:24 10/25/22 11:24 10/25/22 07:40 FiO2 97 10/23/22 19:45 Oxygen Flow Rate (L/min) 2 Oxygen Delivery Method Bi-pap Weight: 151.2 kg Body Mass Index (BMI) 46.5 Intake & Output: Intake and Output for Last 24 Hours 10/23/22 10/24/22 10/25/22 23:59 23:59 23:59 Intake Total 2103.33 / 2503.33 2703.0 / 2703.0 1731.67 / 1731.67 Output Total 975 / 975 1475 / 1475 800 / 800 Balance 1128.33 / 1528.33 1228.0 / 1228.0 931.67 / 931.67 Lab / Micro Data Result Diagrams: 10/24/22 05:07 10/25/22 05:30 Labs: Laboratory Results - last 24 hr 10/24/22 15:27: Sodium 136, Potassium 4.5, Chloride 99, Carbon Dioxide 29.0, Anion Gap 8, BUN 43 H, Creatinine 1.64 H, Estim Creat Clear Calc 47.83, Est GFR (MDRD) Af Amer 54 L, Est GFR (MDRD) Non-Af 45 L, BUN/Creatinine Ratio 26.2 H, Glucose 129 H, Calcium 9.0 10/25/22 05:30: Sodium 136, Potassium 4.2, Chloride 101, Carbon Dioxide 29.0, Anion Gap 6, BUN 40 H, Creatinine 1.23, Estim Creat Clear Calc 63.77, Est GFR (MDRD) Af Amer 76, Est GFR (MDRD) Non-Af 63, BUN/Creatinine Ratio 32.5 H, Glucose 126 H, Calcium 9.2 Micro: Microbiology 10/23/22 Unknown Wound - Back Gram Stain - Final 10/23/22 Unknown Wound - Back Wound Culture - Final No growth aerobically. 10/23/22 Unknown Bone - Back Gram Stain - Final 10/23/22 Unknown Bone - Back Wound Culture - Final No growth aerobically. 10/23/22 Unknown Bone - Back Anaerobic Culture - Preliminary No growth in 48 hours. 10/24/22 17:10 Nasal Secretion SARS-CoV-2 Antigen (Rapid) - Final Physical Exam Const alert, oriented x3, no apparent distress and well nourished Constitutional Narrative: Morbidly obese, middle-aged, white male sitting up on the edge of the bed, appears comfortable at this time, nontoxic, currently on room air HEENT head/scalp atraumatic and moist oral mucous membranes Head and Scalp: normocephalic Resp normal respiratory effort, no retractions, no use of accessory muscles and clear to auscultation bilaterally Resp Narrative: Diffusely diminished but clear, breath sounds are distant secondary to body h abitus Auscultation: Negative for crackles, rhonchi or wheezes Cardio regular rate, regular rhythm, S1 normal heart sound, S2 normal heart sound, no murmurs, no rub, no gallops and no clicks GI normal to inspection, nondistended, normoactive bowel sounds, soft to palpation, non-tender and non-distended GI Narrative: Large protuberant abdomen, umbilical hernia Palpation: hernia Extremity no clubbing, cyanosis or edema Extremity Narrative: Scattered ecchymosis from recent falls Neuro oriented x3, moves all extremities and no focal motor deficits Speech: speech normal Psych affect normal Psych Narrative: Appropriately interactive Assessment & Plan Assessment/Plan (1) Closed wedge compression fracture of T7 vertebra: (2) 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: (3) Severe back pain: (4) Hypoxia: (5) JOSE (acute kidney injury): PLAN: Plan T7 thoracic compression fracture with 5 mm retropulsion and spinal cord compression -Postop day 2 percutaneous vertebral body biopsy and T7 laminectomy decompression -Biopsy and culture still pending -Oxycodone -As needed morphine for breakthrough pain -Gabapentin 300 mg 3 times daily -Lidocaine patch -Patient had recent stress test that was unremarkable as well as an unremarkable echocardiogram -Management per orthopedic surgery Chronic hypoxia status post COVID infection -Resolved-patient weaned to room air JOSE -Resolved -Okay to restart losartan Hypertension -Continue home carvedilol -Continue home losartan -Continue home amlodipine -As needed hydralazine for systolic blood pressure greater than 160 Aortic aneurysm -Stable ascending aortic aneurysm noted on most recent CTA -4.4 cm -Control blood pressure -Recommend outpatient follow-up FELA -Continue home CPAP Depression -Continue home bupropion Morbid obesity -BMI 42.5 -Recommend weight loss -Complicates treatment, prognosis, outcomes DVT prophylaxis -We will hold for now with surgery pending -Per orthopedic surgery after intervention -SCDs Disposition: -Okay to discharge from medical standpoint -Patient has been accepted at facility and can go whenever cleared from an orthopedic standpoint Charges/Coding Visit Charges OBSV E&M: 87038 Subsequent observation care L2
--- NOTE | 2022-10-25 14:26 | PCM.TXEXTCAR ---
Diet Diet Order/Speech Therapy: 10/24/22 06:38 Diet: Regular - General Is pt able to select menu?: Yes Wound(s) generalized: Wound Type: scabs Dressing Change: Dry Sterile Dressing (Daily dressing change with iodine gauze and tape to thoracic back. Use waterproof dressing for shower) L elbow: Wound Type: Abrasion R. knee: Wound Type: Abrasion upper back: Wound Type: Surgical Incision Therapies Weight Bearing: Full weight bearing Physical Therapy: Eval and Treat Occupational Therapy: Eval and Treat Problem/Diagnosis (1) Closed wedge compression fracture of T7 vertebra: Status: Acute Code(s): S22.060A - Wedge compression fracture of T7-T8 vertebra, initial encounter for closed fracture (2) Thoracic spinal stenosis: Status: Acute Code(s): M48.04 - Spinal stenosis, thoracic region Plan: I had a lengthy discussion with the patient. I reviewed his thoracic MRI results with him dated 10/22/2022 which shows age-indeterminate compression deformity of T7. This compression fracture was present on a CTA from 09/30/2022. The radiologist feels that there has been prior vertebroplasty at this level but the patient states he has never had this procedure. There is about 5 mm of retropulsion into the canal at the T7 level which I feel is causing stenosis and likely contributing to his symptoms. He feels at this point his symptoms are affecting his activities of daily life and that resulted in him presenting to the ER. After discussing the risk benefits and alternatives and answering all of his questions I recommend a percutaneous biopsy of the T7 vertebral body, as well as T7 laminectomy decompression. We discussed the procedure in detail along with expected outcome and recovery and he agrees to proceed. We will get him scheduled for this surgery. The plan postoperatively will likely be to keep him for observation overnight and discharge him home tomorrow. He understands and agrees with the treatment plan. (3) Compression fracture: Status: Acute Allergies/Procedures Done in Hospital Allergies Penicillins Allergy (Verified 10/22/22 12:16) Itching Type of Care/Length of Stay Estimated LOS: Convalescent Care Less Than 30 days Type of Care Needed: Skilled Rehab Potential: Good Prognosis: Good Additional Orders/Day of Discharge Day of Discharge: 10/25/22 Follow Up Care Please Follow Up With: Perez,Dennis, DO When: 3 weeks Discharge Plan Admission Admit Date/Time: 10/22/22 20:07 Attending Provider: Dennis Perez Primary Care Provider: Arleen Hwang Consulting Providers: Regine Pratt ; Janel Wright ; Janel Palmer ; Mona Sims ; Jenni Frank ; Micheal Young ; Ryley Kilgore ; Merrick Smith ; Kareem Hill ; Pancho Hartmann ; Perfecto Prajapati ; Roland Castillo ; Gerardo Lynn ; Anastasiia Hdz ; Judd Dalton ; Keith Pink ; Erick Pires ; Apryl Fung ; Noah Babcock ; Alyssia Augustine TRAVEL JOURNALIST Discharge Orders/Prescriptions Prescriptions: New hydrocodone-acetaminophen 5-325 mg tablet 1 tab PO Q6H 7 Days Qty: 28 0RF Continued amlodipine 10 MG tablet 10 mg PO QHS colestipol 1 GM tablet 1 gm PO QHS escitalopram oxalate 20 MG tablet 20 mg PO DAILY vit C,U-Aa-uejal-lutein-zeaxan 1 EACH capsule 1 cap PO BID carvedilol 25 mg tablet 25 mg PO BID Label Comments: TAKE 1 TABLET BY MOUTH TWICE A DAY WITH MEALS bupropion HCl 75 mg tablet 75 mg PO DAILY Label Comments: START WITH TAKING 1 TABLET DAILY AND INCREASE TO 1 TABLET TWICE DAILY IF TOLERATED losartan 100 mg tablet 100 mg PO DAILY Label Comments: TAKE 1 TABLET BY MOUTH EVERY DAY Discontinued hydrocodone-acetaminophen 5-325 mg tablet 1 tab PO Q8H PRN (Reason: pain) 4 Days Qty: 12 0RF Referrals / Follow Up: Arleen Hwang MD [Primary Care Provider] - Disposition Disposition (needs filled in before D/C Order can be placed): Home, Self Care
--- NOTE | 2022-10-25 15:09 | CASEMGMT ---
Social Work Per physician, pt is ready for discharge today. Pt has been accepted at [facility] and PASRR has been completed in [facility]. PASRR, discharge order and covid results sent to [facility] via [facility]. [facility] arranged with [facility] for 7pm roll picker via [facility]. Nursing and facility updated on discharge time. SW updated pt on discharge plan and he is agreeable. Pt states he will notify family of discharge plan. Disposition: [facility], skilled level of care TEJAS Lindo
[2022-10-25] MEDS: 0.9% Saline Lock 10 ML Syringe IV (18:48)
--- NOTE | 2022-10-25 19:56 | NURSING ---
TRANSPORT HERE TO GET PATIENT
== END 2022-10-25 19:56 | disposition skilled nursing facility (03) ==
LOC: ED 17:04 → MS3 20:28
PROVIDERS: Anesthesiology; Internal Medicine; Admitting Provider Orthopaedic Surgery; Emergency Provider Emergency Medicine; PCP Internal Medicine; Visit Provider Orthopaedic Surgery
PROC: (CPT 63030; principal; 2022-10-23 11:00)
DX: M48.54XA Collapsed vertebra, not elsewhere classified, thoracic region, initial encounter for fracture (principal); E66.01 Morbid (severe) obesity due to excess calories; Z68.42 Body mass index [BMI] 45.0-49.9, adult; Z87.891 Personal history of nicotine dependence; M47.16 Other spondylosis with myelopathy, lumbar region; M62.81 Muscle weakness (generalized); R09.02 Hypoxemia; I10 Essential (primary) hypertension; M48.04 Spinal stenosis, thoracic region; G47.33 Obstructive sleep apnea (adult) (pediatric); Z79.899 Other long term (current) drug therapy; F32.A Depression, unspecified; Z86.711 Personal history of pulmonary embolism; U09.9 Post COVID-19 condition, unspecified; Z99.81 Dependence on supplemental oxygen; I71.40 Abdominal aortic aneurysm, without rupture, unspecified; I44.0 Atrioventricular block, first degree
CPT/HCPCS: 20245; 63046; 00620; 36415; 72070; 72146; 72148; 76000; 80048; 85025; 85610; 85652; 85730; 86140; 87015; 87070; 87075; 87102; 87116; 87205; 87206; 87811; 88307; 88311; 93005; 96361; 96365; 96366; 96375; 96376; 97162; 97166; 97530; 97535; 99218; 99284; J7120; A4216; G0378; J2405

== ENCOUNTER 2022-10-30 12:43 | Emergency (ER) | payer MEDICARE, SELFPAY ==
[2022-10-30 12:46] VITALS: BP 136/75; PULSE 53; RESP 18; TEMP 35.9; O2SAT 93; BMI 47.3
--- NOTE | 2022-10-30 13:29 | CT_ITS ---
STUDY: CT Abdomen And Pelvis W/ Contrast Injection 10/30/2022 2:52 PM REASON FOR EXAM: Male, 67 years old. RECENT T-7 SPINAL INJURY, BLOATING, ABD PAIN ,CONSTIPATION, HX PROSTATE/BLADDER CA, VENICE HTN pain constipation Individualized dose optimization techniques were used for this CT. COMPARISON: None. TECHNIQUE: CT Abdomen And Pelvis W/ Contrast Injection IV 100mL Isovue-300 FINDINGS: There are atherosclerotic calcifications of visualized coronary arteries. The visualized portions of the heart are within normal limits. Normal liver. There are surgical clips in the gallbladder fossa consistent with a prior cholecystectomy. Normal spleen. Normal pancreas. Normal bilateral adrenal glands. A mild bilateral hydronephrosis. No obstructing stones. There are hypodensities in the left kidney. These are consistent for cysts. No follow up required. Normal visualized stomach. Normal small intestine. There are multiple colonic diverticula consistent with diverticulosis. There is non-visualization of the appendix. There are calcifications of the abdominal aorta. This is consistent for atherosclerotic disease. There is NO abdominal aortic aneurysm. Vascular workup can be obtained based on clinical correlation. Normal inferior vena cava. Subcentimeter mesenteric lymph nodes. The urinary bladder is distended. This can suggest urinary retention. There is an umbilical hernia containing fat. There are diffuse degenerative changes of the visualized lumbar spine. CT/Abdomen/Pelvis W IV Cont ONLY IMPRESSION: (NOT LISTED IN ORDER OF SIGNIFICANCE) The urinary bladder is distended. This can suggest urinary retention. A mild bilateral hydronephrosis. No obstructing stones. Other findings as above. Electronically Signed: Mal Lala MD at 15:07 EST ,
--- NOTE | 2022-10-30 13:30 | VDLE_ITS ---
Reason For Study: Swelling RIGHT LEFT GSV is normal. GSV is normal. CFV is compressible, spontaneous, phasic, CFV is compressible, spontaneous, phasic, competent and demonstrates normal competent, and demonstrates normal augmentation. augmentation. FV is compressible, spontaneous, phasic, FV is compressible, spontaneous, phasic, competent and demonstrates normal competent and demonstrates normal augmentation. augmentation. POP V is compressible, spontaneous, phasic, POP V is compressible, spontaneous, phasic, competent and demonstrates normal competent and demonstrates normal augmentation. augmentation. T/P Trunk is compressible. T/P Trunk is compressible. PTV is compressible. PTV is compressible. RT PerV is compressible. LT PerV is compressible. Acute deep vein thrombosis is noted in the Acute deep vein thrombosis is noted in the right Gastroc vein. left Gastroc vein. Procedure This is a venous duplex using B-mode, color flow and spectral Doppler. Exam performed portable in ED. A preliminary report was called and/or faxed to Dr. Henry. VL/Venous Duplex US - Ramon Extrem Interpretation Summary Acute deep venous thrombosis right gastrocnemius vein. Acute deep venous thrombosis left gastrocnemius vein Patent and compressible bilateral great saphenous veins Ordering Physician: Edwardo Henry Referring Physician: Arleen Hwang Performed By: Naz Marx RVT
--- NOTE | 2022-10-30 13:31 | EDS_ITS ---
HPI History of Present Illness Chief Complaint: Lower Extremity Injury Narrative Narrative: 67-year-old male presenting with constipation. He states he is not had a bowel movement in about 3 days. He states that he recently had a T7 biopsy due to intractable back pain by Dr. Perez. He states that after he was hospitalized he was sent to shelter. He states that he was in a bariatric wheelchair to get around. He states he did transition to a walker because the wheelchair did not fit in the bathroom. He was able to do this initially but now states that he is too weak to walk. He describes his right leg as a leg. He cannot bear weight on it. He states he cannot lift it up off the bed. He thinks that he is constipated because he has been taking [place]. He has not been given any thing for constipation. He states that when he gets up to urinate he is not fa st and often urinates prior to getting to the restroom. He does not have any saddle paresthesias. [facility] Medical History Cancer Hypertension FELA (obstructive sleep apnea) Psoriasis Home Medications amlodipine 10 mg tablet 10 mg PO QHS 10/14/19 [History Last Taken 10/17/20] colestipol 1 gram tablet 1 gm PO QHS 10/14/19 [History Last Taken 10/21/22] escitalopram oxalate 20 mg tablet 20 mg PO DAILY 10/14/19 [History Last Taken 10/22/22] vit C 250 mg-vit E 90 mg-zinc 40 mg-copper 1 br-wxyuzf-izfeel capsule 1 cap PO BID eye health 10/14/19 [History Last Taken 10/22/22 0800] bupropion HCl 75 mg tablet 75 mg PO DAILY 09/18/22 [History Last Taken Unknown] carvedilol 25 mg tablet 25 mg PO BID 09/18/22 [History Last Taken 10/22/22] losartan 100 mg tablet 100 mg PO DAILY 09/30/22 [History Last Taken 10/22/22] hydrocodone-acetaminophen 5-325mg 5mg-325mg 1 - 2 ea PO Q4H PRN PRN Pain 7 days #30 tabs 10/25/22 [Rx Last Taken Unknown] Allergy/AdvReac Type Severity Reaction Status Date / Time Penicillins Allergy Itching Verified 10/30/22 12:51 Family History Other Brain aneurysm Heart disease Prostate CA Surgical History History of carpal tunnel surgery History of herniorrhaphy Hx of appendectomy Hx of cholecystectomy Social History household members: spouse Smoking Status: Former smoker substance use type: does not use ROS ROS ED Constitutional Constitutional ED: Denies chills or fever(s) Eyes Eyes: Denies change in vision or diplopia ENT ENT ED: Denies rhinorrhea or sore throat Cardiovascular Cardiovascular: Denies chest pain or palpitations Respiratory/Chest Respiratory/Chest: Reports dyspnea on exertion Gastrointestinal Gastrointestinal: Reports abdominal pain and constipation; Denies nausea or vomiting Genitourinary Genitourinary ED: Denies dysuria Musculoskeletal Musculoskeletal: Reports back pain Neurologic Neurologic: Reports other Details: Right leg weakness Psychiatric Psychiatric: Denies anxiety or depression Endocrine Endocrinology: Denies cold intolerance or heat intolerance EXAM Physical Exam Const Vital Signs: 10/30/22 12:46 10/30/22 15:04 10/30/22 17:13 Temperature 96.6 F L Temperature Source Temporal Pulse Rate 53 L 53 L 51 L Respiratory Rate 18 21 H 17 Blood Pressure 136/75 H 163/97 H 190/93 H Blood Pressure Mean 95 119 125 Pulse Ox 93 95 95 Oxygen Delivery Method Room Air Room Air Room Air Positive well nourished and obese General Appearance ED: NAD; Negative for pallor Nutritional Appearance: obese HEENT Reports moist mucous membranes Eyes PERRL and EOMs intact bilaterally Neck no lymphadenopathy Chest Wall inspection of chest normal Resp normal respiratory effort and clear to auscultation bilaterally Auscultation: Negative for rales, rhonchi or wheezes Cardio regular rhythm Rate: bradycardia GI GI Narrative: Abdomen is distended and diffusely tender. No rebound or guarding. Inspection: abdominal distention Narrative: No rectal tone noted on rectal exam. There is a small amount of stool in the vault at the fingertip Back/Spine no CVA tenderness Extremity Extremity Narrative: Sensation is intact in the bilateral lower extremities throughout. Patient unable to flex the right hip up off the bed. He is unable to flex or extend the right knee. He is able to move his right ankle in dorsiflexion. Pedal pulses 2+. Prescribe refill all 5 toes. Neuro oriented x3 and CN's II-XII intact bilaterally Sensorium / Orientation: alert Motor Exam: strength 5/5 throughout Psych mental status grossly normal Skin General Skin Exam: Negative for jaundice or pallor MDM MDM MDM Narrative Medical decision making narrative: 67-year-old male presenting with recent history of compression fracture at T7. He had a biopsy done by Dr. Perez. The area was decompressed. Patient has been at the correction and is not getting around well. He now reports he has been constipated. He has been on [place] and has not been taking anything for constipation. He does not have any saddle anesthesia paresthesias. His sensation is intact and symmetric bilaterally in the lower extremities. He does have decreased motor strength of the right lower extremity and he is unable to flex his hip up off the bed. He cannot flex or extend his knee because of this. He is able to dorsiflex and plantarflex the right ankle. Patient also complains of bilateral lower extremity edema and abdominal distention. He is unable to get around in his correction and he feels like he is not getting good care there. He did also say that he felt a little short of breath because his abdomen was so distended. EKG was obtained and on my interpretation this is an sinus bradycardia with a rate of 47 bpm with a first-degree AV block. Chest x-ray my interpretation shows no acute cardiopulmonary process. The rash interpretation agrees your I did obtain blood work and his CBC shows no drew kocytosis. His hemoglobin is stable at 10.0. Platelets are normal. Creatinine slightly elevated 1.43. He was given IV fluids. Patient was initially medicated with 0.5 mg of Dilaudid. He has requested a second dose to his increasing pain. His LFTs are normal. Urinalysis was negative for infection. Although the initial bladder scan showed 0 cc of urine. I obtained a CT of the abdomen pelvis due to his abdominal pain which showed a distended urinary bladder and bilateral hydroureteronephrosis. Calderon catheter was placed. I did speak with Dr. Perez regarding the patient's exam. He does not have any rectal tone. He is unable to move his right leg. He recommended repeat MRI of the thoracic and lumbar spine which was ordered. Due to the lower extremity edema I did order DVT studies which showed bilateral gastrocnemius DVTs. I will discuss this with Dr. Perez given his recent surgery. I do suspect that likely these will worsen since he is bedbound now. Was paged. I am currently waiting for callback. I spoke with the home health care social worker because the patient states that he does not want to go back to his shelter facility. Because he does not like his care. His MRI is pending and will be followed up by incoming ED physician. Impression: 1. Back pain 2. Abdominal pain 3. Constipation 4. Urinary retention 5. Bilateral gastrocnemius DVT 6. Right leg weakness Lab Data Attestation: I reviewed the patient's lab results. Labs: Laboratory Results - last 24 hr 10/30/22 10/30/22 10/30/22 12:50 12:50 12:50 WBC 8.9 RBC 2.85 L Hgb 10.0 L Hct 29.5 L MCV 103.5 H MCH 35.1 H MCHC 33.9 RDW Std Deviation 51.8 H RDW Coeff of Justine 13.6 Plt Count 194 MPV 9.1 Immature Gran % (Auto) 0.800 Neut % (Auto) 63.1 Lymph % (Auto) 16.7 L Sampson % (Auto) 17.1 H Eos % (Auto) 2.0 Baso % (Auto) 0.3 Absolute Neuts (auto) 5.6 Absolute Lymphs (auto) 1.49 Nucleated RBC % 0 Sodium 137 Potassium 4.2 Chloride 101 Carbon Dioxide 27.0 Anion Gap 9 BUN 43 H Creatinine 1.43 H Estim Creat Clear Calc 54.85 Est GFR (MDRD) Af Amer 64 Est GFR (MDRD) Non-Af 53 L BUN/Creatinine Ratio 30.1 H Glucose 111 H Calcium 9.6 Total Bilirubin 0.70 AST 26 ALT 44 Alkaline Phosphatase 76 Troponin I High Sens 19 B-Natriuretic Peptide 83.0 Total Protein 6.8 Albumin 3.6 Globulin 3.2 Albumin/Globulin Ratio 1.1 Urine Color Urine Clarity Urine pH Ur Specific [place] Urine Protein Urine Glucose (UA) Urine Ketones Urine Occult Blood Urine Nitrite Urine Bilirubin Urine Urobilinogen Ur Leukocyte Esterase Urine RBC Urine WBC Ur Squamous Epith Cells Ur Transition Epith Cell Ur Renal Epithelial Cell Calcium Oxalate Crystal Uric Acid Crystals Triple Phos Crystals Other Crystals Amorphous Sediment Urine Bacteria Hyaline Casts Fine Granular Casts Coarse Granular Casts Waxy Casts RBC Casts WBC Casts Urine Mucus Urine Trichomonas Urine Yeast 10/30/22 13:51 WBC RBC Hgb Hct MCV MCH MCHC RDW Std Deviation RDW Coeff of Justine Plt Count MPV Immature Gran % (Auto) Neut % (Auto) Lymph % (Auto) Sampson % (Auto) Eos % (Auto) Baso % (Auto) Absolute Neuts (auto) Absolute Lymphs (auto) Nucleated RBC % Sodium Potassium Chloride Carbon Dioxide Anion Gap BUN Creatinine Estim Creat Clear Calc Est GFR (MDRD) Af Amer Est GFR (MDRD) Non-Af BUN/Creatinine Ratio Glucose Calcium Total Bilirubin AST ALT Alkaline Phosphatase Troponin I High Sens B-Natriuretic Peptide Total Protein Albumin Globulin Albumin/Globulin Ratio Urine Color Yellow Urine Clarity Clear Urine pH 5.0 Ur Specific [place] 1.020 Urine Protein 30 H Urine Glucose (UA) Normal Urine Ketones Negative Urine Occult Blood 10 H Urine Nitrite Negative Urine Bilirubin Negative Urine Urobilinogen Normal Ur Leukocyte Esterase 25 H Urine RBC Cancelled Urine WBC Cancelled Ur Squamous Epith Cells Cancelled Ur Transition Epith Cell Cancelled Ur Renal Epithelial Cell Cancelled Calcium Oxalate Crystal Cancelled Uric Acid Crystals Cancelled Triple Phos Crystals Cancelled Other Crystals Cancelled Amorphous Sediment Cancelled Urine Bacteria Cancelled Hyaline Casts Cancelled Fine Granular Casts Cancelled Coarse Granular Casts Cancelled Waxy Casts Cancelled RBC Casts Cancelled WBC Casts Cancelled Urine Mucus Cancelled Urine Trichomonas Cancelled Urine Yeast Cancelled Radiography Diagnostic Testing: Clinical Impression(s) from Imaging Studies Abdomen/Pelvis CT 10/30/22 13:29 IMPRESSION: (NOT LISTED IN ORDER OF SIGNIFICANCE) The urinary bladder is distended. This can suggest urinary retention. A mild bilateral hydronephrosis. No obstructing stones. Other findings as above. Electronically Signed: Mla Lala MD at 15:07 EST , Venous Doppler Study 10/30/22 13:30 Interpretation Summary Acute deep venous thrombosis right gastrocnemius vein. Acute deep venous thrombosis left gastrocnemius vein Patent and compressible bilateral great saphenous veins Ordering Physician: Edwardo Henry Referring Physician: Arleen Hwang Performed By: Naz Marx RVT Discharge Plan Triage Chief Complaint: Lower Extremity Injury ED Provider: Edwardo Henry Dx/Rx/DC Orders Prescriptions: No Action amlodipine 10 MG tablet 10 mg PO QHS colestipol 1 GM tablet 1 gm PO QHS escitalopram oxalate 20 MG tablet 20 mg PO DAILY vit C,B-Jv-vsdue-lutein-zeaxan 1 EACH capsule 1 cap PO BID carvedilol 25 mg tablet 25 mg PO BID Label Comments: TAKE 1 TABLET BY MOUTH TWICE A DAY WITH MEALS bupropion HCl 75 mg tablet 75 mg PO DAILY Label Comments: START WITH TAKING 1 TABLET DAILY AND INCREASE TO 1 TABLET TWICE DAILY IF TOLERATED losartan 100 mg tablet 100 mg PO DAILY Label Comments: TAKE 1 TABLET BY MOUTH EVERY DAY hydrocodone-acetaminophen 5-325 mg tablet 1 - 2 ea PO Q4H PRN PRN (Reason: Pain) 7 Days Qty: 30 0RF Primary Care Provider: Arleen Hwang Referrals: Arleen Hwang MD [Primary Care Provider] -
[2022-10-30 13:40] LABS: Absolute Lymphocyte Count 1.49 X10^3/uL (0.83-4.51); Absolute Neutrophil Count 5.6 X10^3/uL (2.0-7.7); Basophil# 0.03 X10^3/uL; Basophil% 0.3 % (0-1); Eosinophil# 0.18 X10^3/uL; Hematocrit 29.5 % (40-54); Lymphocyte # 1.49 X10^3/ul (0.83-4.51); Lymphocyte % 16.7 % (19-41); Mean Corp Hgb Conc 33.9 g/dL (32-36); Mean Corpuscular Hgb 35.1 pg (27.0-32.0); Mean Corpuscular Volume 103.5 fL (80-94); Mean Platelet Vol. 9.1 fl (6.2-12.0); Monocyte# 1.53 X10^3/uL; Monocyte% 17.1 % (0-10); NRBC Flagged by Analyzer 0 % (0-5); Neutrophil # 5.63 X10^3/uL (2.7-7.7); Neutrophil % 63.1 % (47-70); POSITIVE DIFFERENTIAL YES; Platelet Count 194 K/mm3 (150-450); RBC Distribution Width CV 13.6 % (11.6-14.6); RBC Distribution Width SD 51.8 fl (35.1-43.9); Red Blood Count 2.85 M/mm3 (4.6-6.2); White Blood Count 8.9 K/mm3 (4.4-11.0)
[2022-10-30 13:48] LABS: Differential Indicated SCAN CRITERIA MET
[2022-10-30 14:00] LABS: ALB/GLOB Ratio 1.1 RATIO (0.9-2.4); AST(SGOT) 26 U/L (15-37); Alanine Aminotransfer ALT/SGPT 44 U/L (16-61); Albumin, Serum 3.6 g/dL (3.2-5.0); Alkaline Phosphatase 76 U/L (45-117); Anion Gap 9 (5-15); BUN 43 mg/dL (7-18); BUN/Creat Ratio 30.1 RATIO (10-20); Calcium,Total 9.6 mg/dL (8.5-10.1); Chloride 101 mmol/L (98-107); Creatinine, Serum 1.43 mg/dL (0.70-1.30); EST Glomerular Filtration Rate 53 mL/min (>60); Est Glom Filt Rate - Afr Amer 64 mL/min (>60); Estimated Creatinine Clearance 54.85 ml/min; Globulin 3.2 g/dL (2.2-4.2); Glucose 111 mg/dL (74-106); Potassium 4.2 mmol/L (3.5-5.1); Protein, Total 6.8 g/dL (6.4-8.2); Sodium Level 137 mmol/L (136-145); Troponin-I HS 19 pg/mL (3.0-78.0)
[2022-10-30 14:00] LABS: Color, Urine Yellow (Yellow); Glucose, Dipstick Normal (Normal); Ketone-Dipstick Negative (Negative); Leukocyte Esterase-Dipstick 25 /ul (Negative); Nitrite-Dipstick Negative (Negative); Occult Blood-Urine 10 /ul (Negative); Protein-Dipstick 30 mg/dl (Negative); Urine Bilirubin Dipstick Negative (Negative); Urine Clarity Clear (Clear); Urine Urobilinogen Normal (Normal)
[2022-10-30] MEDS: 0.9% Normal Saline 1,000 ML 999 ML IV (14:07)
[2022-10-30] MEDS: HYDROmorphone 0.5 MG/0.5 ML SYRINGE IV ×3 (14:09→18:30)
[2022-10-30 15:04] VITALS: BP 163/97; PULSE 53; RESP 21; O2SAT 95
--- NOTE | 2022-10-30 16:25 | EKG12_ITS ---
Test Reason : LOW EXT PAIN Blood Pressure : / mmHG Vent. Rate : 047 BPM Atrial Rate : 047 BPM P-R Int : 280 ms QRS Dur : 096 ms QT Int : 492 ms P-R-T Axes : 000 -08 -12 degrees QTc Int : 435 ms Sinus bradycardia with 1st degree A-V block Low voltage QRS (Limb Leads) Nonspecific T wave abnormality Abnormal ECG Confirmed by CHERI VERDE, WALLY ([id number]), senior editor MARTY WASHINGTON ([id number]) on 11/01/2022 9:23:28 AM Referred By: Confirmed By:WALLY ALONZO MD
[2022-10-30 17:13] VITALS: BP 190/93; PULSE 51; RESP 17; O2SAT 95
[2022-10-30 18:32] VITALS: BP 195/100; PULSE 57; RESP 18; O2SAT 95
--- NOTE | 2022-10-30 18:36 | CM.ED ---
SW Note EBONIE met with MD Henry with concerns voiced by patient about his current living arrangement at a SNF. EBONIE and EBONIE Romero met with patient and introduced themselves and role as [facility] Social Workers. EBONIE explained MD had updated EBONIE about patient's concerns with his living arrangements and asked for further information. Patient explained he is staying at [facility] and has not been satisfied with his care. Patient explained there is no air conditioning, his wheelchair can't fit into the bathroom doorway so he is limited in what he can do/access while in the bathroom. Patient reports he hasn't showered in 10 days. Patient reported he wasn't given a meal twice due to staff forgetting about him and staff has been late to give him his pain medications consistently. Patient explained he has been working with the manager social at [facility] to find an alternative SNF. SW explained patient would need to return to [facility] and continue to work with the manager social to change placement. SW provided patient with manager eligibility care [facility] contact information and encouraged patient to contact them with concerns. Patient reported he didn't want to go back to [facility] but was receptive towards contacting the [facility]. SW remains available if other needs arise. EBONIE attempted to contact Don with local APS to reports concerns voiced by patient. EBONIE left a voicemail briefly explaining patient's concerns about his current living situation and provided contact information for this SW if a follow up phone call was needed. Adriana Juan 3RD GRADE TEACHER, MARTHA
--- NOTE | 2022-10-30 18:45 | MRI_ITS ---
STUDY: MRI THORACIC SPINE WITHOUT CONTRAST REASON FOR EXAM: Male, 67 years old. LOW BACK PAIN ; RIGHT LOWER EXTREMITY WEAKNESS AND FIGHT FOOT WEAKNESS FOR 5 DAYS. SURGERY 09/23/22 : T 7 LAMINECTOMY AND T [address] ABD PELVIS ALSO TODAY. MR THORACIC AND MR LUMBAR 10/22/22. XR T-SPINE. TECHNIQUE: Standardized fat and water weighted pulse sequences were obtained in the sagittal and axial planes. COMPARISON: 10.22.22. FINDINGS: Normal kyphosis of the thoracic spine. There is no substantial scoliosis. T7 vertebroplasty changes. T7 vertebral body with markedly low signal suggestive of interval recent vertebroplasty. 6.7mm retropulsion into the spinal canal produces moderate spinal stenosis with abutment of the thoracic spinal cord. This is worse. However the laminectomy at T7 allows for less compression of the cord. T1-2, T2-3, T3-4, T4-5, T5-6, T6-7, T7-8, T8-9, T9-10, T10-11, T11-12: Normal endplates. Normal disc hydration, heights and morphology of the corresponding intervertebral discs. Normal central canal and intervertebral neural foramina at the corresponding levels. Normal visualized thoracic cord. Vertebral body hemangiomas at T10 and T11. Post surgical changes within the soft tissue at T7. MRI/Spine Thoracic (Routine) IMPRESSION: T7 vertebral body with markedly low signal suggestive of interval recent vertebroplasty. 6.7mm retropulsion into the spinal canal produces moderate spinal stenosis with abutment of the thoracic spinal cord. This is worse. However the laminectomy at T7 allows for less compression of the cord. Electronically Signed: Mal Lala MD at 20:14 EST ,
--- NOTE | 2022-10-30 19:35 | MRI_ITS ---
STUDY: MR Spine Lumbar W/O Contrast 10/30/2022 8:14 PM REASON FOR EXAM: Male, 67 years old. Other, LOW BACK PAIN ; RIGHT LOWER EXTREMITY WEAKNESS AND FIGHT FOOT WEAKNESS FOR 5 DAYS. SURGERY 09/23/22 : T 7 LAMINECTOMY AND T [address] ABD PELVIS ALSO TODAY. MR THORACIC AND MR LUMBAR 10/22/22. XR T-SPINE.pain back pain TECHNIQUE: MR Spine Lumbar W/O Contrast Standardized fat and water weighted pulse sequences were obtained. COMPARISON: 10.22.22 FINDINGS: T12-L1: Loss of intervertebral disc height. There is endplate spondylosis of the vertebral body. Normal central canal and intervertebral neuroforamina. There is bilateral facet arthropathy. Disc desiccation. Normal lumbar lordosis. There is no substantial scoliosis. Normal conus medullaris that terminates at the L1. L1-2: Normal endplates. Normal disc height and morphology. Normal central canal and intervertebral neuroforamina. L2-3: Normal endplates. Normal disc height, hydration and morphology. Normal bilateral facet joints. Normal central canal and bilateral lateral recesses. Normal bilateral intervertebral neural foramina. L3-4: Loss of intervertebral disc height. There is endplate spondylosis of the vertebral body. Posterior disc bulge. Moderate spinal stenosis. There is bilateral facet arthropathy. L4-5: Loss of intervertebral disc height. There is endplate spondylosis of the vertebral body. Posterior disc bulge. Mild narrowing the right lateral recess. Narrowing of the right intervertebral neuroforamina. There is bilateral facet arthropathy. Discogenic endplate changes. L5-S1: Loss of intervertebral disc height. There is endplate spondylosis of the vertebral body. There is bilateral facet arthropathy. Bilateral neural foraminal stenosis. Compression of exiting nerve roots. Normal visualized sacral ala. Paraspinal soft tissue edema. MRI/Spine Lumbar (Routine) IMPRESSION: Multilevel degenerative changes, as described above. Electronically Signed: Mal Lala MD at 20:28 EST ,
[2022-10-30 20:13] VITALS: BP 153/65; PULSE 57; RESP 18; O2SAT 93
[2022-10-30] MEDS: Rivaroxaban 15 MG Tablet PO (21:32)
[2022-10-30 22:13] VITALS: BP 164/82; PULSE 65; RESP 18; O2SAT 97
[2022-10-31] VITALS (9 sets, daily range): BP systolic 143–173; BP diastolic 65–92; PULSE 50–68; RESP 16–25; O2SAT 95–99
[2022-10-31] MEDS: HYDROcodone Bitartrate/Apap 5/325 Tablet PO ×6 (00:22→22:59)
[2022-10-31] MEDS: amLODIPine 10 MG Tablet PO (00:28)
[2022-10-31] MEDS: Carvedilol 25 MG Tablet PO ×3 (00:28→21:36)
--- NOTE | 2022-10-31 05:05 | ED.RN ---
Alicia given @ 0504, computer unable to scan medications. Verified before administration with Genesis JIMENEZ.
[2022-10-31] MEDS: Rivaroxaban 15 MG Tablet PO ×2 (09:17→17:58)
[2022-10-31] MEDS: Escitalopram Oxalate 20 MG Tablet PO (09:17)
[2022-10-31] MEDS: buPROPion 75 MG Tablet PO (09:18)
[2022-10-31] MEDS: Losartan Potassium 100 MG Tablet PO (09:18)
--- NOTE | 2022-10-31 11:12 | CM.ED ---
Social Work This social science manager updated by medical team that patient is refusing to [facility] to the [facility]. Nursing staff reporting that social science manager saw patient last night and plan was for patient to return to [facility], nursing reports that when patient was provided with discharge information that patient then refused to go back to the [facility]. Social Work had already left for the day and decision was made for patient to stay until social science manager came in today. This social science manager met with patient in room. This social science manager introduce self and social science manager role. Patient states boy I am glad to see you. This social science manager going over what previous ED social science manager went over with patient and communicating to patient that patient does not have a reason to admit to the hospital and [facility] is able to continue to work with patient on transitioning to another usp facility. Patient states yes I have been working with Sherice. This social science manager communicating to patient that current options are to return to [facility] to allow for [facility] to continue to work with patient on getting patient transferred, patient voiced understanding. This social science manager offered to call Sherice to share patient concerns and plan, patient agreeable to this and request to see a list of in-network nursing facilities that are local to patient geographical region. Patient wanting to look at list of in-network nursing facilities prior to this social science manager calling Sherice so that this social science manager can provide patient choices to Sherice. This social science manager provided patient with list of in-network nursing facilities that are local to patient geographical region. Patient 1st-4th choices are as follows: [facility], [facility], [facility], and [facility]. Telephone call to Callum Athenskeagan, Sherice. This social science manager communicating patient concerns on returning to [facility] but also that patient does not meet criteria for admission to acute care hospital and currently [facility] is patient residence. Sherice reports to be able to work with patient on transferring to another facility. This social science manager provided Sherice with patient preferred facilities. Sherice then states concern that new pre-cert might need to be obtained for patient to return to [facility] due to patient being gone from facilities for more then 24hours. This social science manager pointed out that per ED tracker patient has been in the ED for less then 24hours, but close to. Sherice to contact business office and get back to this social science manager. Will continue to follow. Keshia ROWAN, BARON
--- NOTE | 2022-10-31 12:42 | CM.ED ---
Social Work Telephone call back from Sherice at [facility], Sherice reports to be able to take patient back. Sherice plans to reach out to [facility] today to make referral right after I get off the phone with you. This social sciences chair updated patient on above information. Patient reluctant but agreeable to return to [facility] with plan to transfer to [facility]. Patient updated that Sherice is working on referral. Medical team updated, payroll secretary to set up transportation. PLAN: Return to [facility]. Keshia ROWAN, CINDYS
--- NOTE | 2022-10-31 13:13 | CASEMGMT ---
Social Work Telephone call from Missy at [facility]. Missy reports to work in the billing office at [facility] and to not be able to accept patient back until pre-cert has been obtained. Missy reports that if patient arrives to facility prior to pre-cert being obtained that I will send him back as there is not insurance approval. Missy states that patient was discharged from the facility yesterday. This social science research assistant inquired if staff at [facility] notified [facility] ED that patient was discharged yesterday, Missy states I am not sure about that. This social science research assistant educating Missy that unaware that patient was discharged from [facility] but plan is for patient to return to [facility] as patient does not have a medical reason to admit to acute [facility] hospital and [facility] is able to facilitate patient transferring to [facility]. Kathe states to be under the impression that against patient choice for patient to return to [facility], as patient is not wanting to stay at [facility]. This social science research assistant educating Missy that unable to admit patient to acute [facility] hospital and unable to facilitate transfer to another senior care in the emergency room, Missy voiced understanding. Missy request for clinical information to be faxed so that [facility] is able to obtain pre-cert for patient to return to [facility] today. Missy states to be able to obtain approval from MMO today for patient to admit back to [facility]. This social science research assistant faxed clinical information to [phone] per Missy's request. Nursing updated to put transportation on will call until approval from insurance is obtained. Will continue to follow. BARON Parker
--- NOTE | 2022-10-31 15:34 | CM.ED ---
Social Work Telephone call to Sherice Clale. This social media marketing analyst checking status of patient case and patient ability to return to [facility] today. Sherice states will check with Missy. Sherice reports that Missy works at a different location. Sherice to call this social media marketing analyst back. Will continue to follow. Keshia ROWAN, MARTHA-S
--- NOTE | 2022-10-31 16:01 | ED.RN ---
Called Sherice at [place] at [phone] and she is not in the office so personal secretary took a message to get back with us for update on insurance status.
--- NOTE | 2022-10-31 16:41 | CASEMGMT ---
Social Work Telephone call to Sherice Calle. Sherice reports to still be waiting to hear back from [place]. Sherice states we will have an answer soon. Will continue to follow. Keshia ROWAN, BARON
--- NOTE | 2022-10-31 18:08 | CM.ED ---
Social Work Telephone call to Sherice Calle. Sherice reports to still be waiting to hear back from [place]. Sherice to call this social media developer as soon as I get the approval. Sherice states to be able to call this social media developer after hours Will continue to follow. Keshia ROWAN, MARTHA-S
[2022-11-01] MEDS: HYDROcodone Bitartrate/Apap 5/325 Tablet PO (03:59)
[2022-11-01 04:04] VITALS: BP 174/85; PULSE 57; RESP 16; O2SAT 96
[2022-11-01 06:00] VITALS: RESP 16
== END 2022-11-01 07:03 | disposition skilled nursing facility (03) ==
PROVIDERS: Emergency Provider Student in an Organized Health Care Education/Training Program; PCP Internal Medicine; Visit Provider Student in an Organized Health Care Education/Training Program
DX: K59.00 Constipation, unspecified (principal); I82.463 Acute embolism and thrombosis of calf muscular vein, bilateral; I44.0 Atrioventricular block, first degree; Z87.891 Personal history of nicotine dependence; M54.9 Dorsalgia, unspecified; N13.30 Unspecified hydronephrosis; R14.0 Abdominal distension (gaseous); R33.9 Retention of urine, unspecified; R53.1 Weakness; R10.9 Unspecified abdominal pain; R60.0 Localized edema; E66.9 Obesity, unspecified; R94.31 Abnormal electrocardiogram [ECG] [EKG]; M79.89 Other specified soft tissue disorders; I12.9 Hypertensive chronic kidney disease with stage 1 through stage 4 chronic kidney disease, or unspecified chronic kidney disease
CPT/HCPCS: 51702; 72146; 72148; 74177; 80053; 81002; 83880; 84484; 85025; 93005; 93970; 96361; 96374; 96376; 99285; J7030; Q9967; A4216

== ENCOUNTER 2022-12-14 21:07 | Inpatient (IN) | payer MEDICARE, SELFPAY ==
[2022-12-14 21:16] VITALS: BP 145/72; PULSE 60; RESP 16; TEMP 36.6; O2SAT 90; BMI 41.7
--- NOTE | 2022-12-14 21:56 | HP.PCM_ITS ---
HPI - General General Date of Admission: 12/14/22 Date of Service: 12/17/22 Chief Complaint: Here for rehab. HPI Narrative 10/30/2022 ZIYAD BAER, is a 67 Male who presents to [facility] Emergency Department with lower extremity injury. Constipation, no bowel movement for [address] Perez performed T7 biopsy for intractable back pain. Hospital to SNF, bariatric wheelchair to walker. Too weak to walk, unable to bear weight. Right lower extremity weakness, urinary retention, no rectal tone. Doppler ultrasound bilateral lower extremity positive for DVT. MRI Thoracic spine showed T7 spinal stenosis. 11/08/2022 IVC filter placed. Obstructive sleep apnea suspected. PT/OT. 11/09/2022 T7 compression fracture status post T5-9 PSDF with T6-T8 laminectomy with right foraminotomies. 11/14/2022 Admit to [facility]. 11/23/2022 Increase Bethanechol, add Tamsulosin. 11/26/2022 Voiding trial successful. 12/12/2022 Noncompliant with BiPAP for obstructive sleep apnea. 12/13/2022 Interested in Zanaflex. Low dose [place] for pain. IVC filter for bilateral lower extremity DVT, Heparin for DVT prophylaxis. Hypertension controlled with Norvasc, Lisinopril, Coreg. Somnolence improved with stopping controlled substances. 12/14/2022 Admit to TCU with debility, here for rehabilitation, strengthening, prior to discharge home alone. [facility] Medical History (Updated 12/14/22 @ 22:[address] Magdy Camp MD) Cancer Hypertension FELA (obstructive sleep apnea) Psoriasis Home Medications amlodipine 10 mg tablet 10 mg PO QHS Blood pressure 10/14/19 [History Last Taken 10/17/20] colestipol 1 gram tablet 1 gm PO QHS 10/14/19 [History Last Taken 10/21/22] escitalopram oxalate 20 mg tablet 20 mg PO DAILY Check with primary doctor 10/14/19 [History Last Taken 10/22/22] vit C 250 mg-vit E 90 mg-zinc 40 mg-copper 1 [id number] capsule 1 cap PO BID eye health 10/14/19 [History Last Taken 10/22/22 0800] bupropion HCl 75 mg tablet 75 mg PO DAILY Depression 09/18/22 [History Last Taken Unknown] carvedilol 25 mg tablet 25 mg PO BID Check with primary doctor 09/18/22 [History Last Taken 10/22/22] losartan 100 mg tablet 100 mg PO DAILY 09/30/22 [History Last Taken 10/22/22] rivaroxaban 15 mg tablet (Xarelto) 15 mg PO BID #38 tabs 11/01/22 [Rx Last Taken Unknown] hydrocodone-acetaminophen 5-325mg 5mg-325mg 2 ea PO Q4H PRN PRN Moderate to severe pain 12/14/22 [History Last Taken Unknown] Allergy/AdvReac Type Severity Reaction Status Date / Time lorazepam Allergy Other Verified 12/15/22 02:02 Penicillins Allergy Itching Verified 10/30/22 12:51 poison ever extract Allergy Itching Verified 12/15/22 02:02 tizanidine [From Zanaflex] Allergy Other Verified 12/15/22 02:02 Family History Other Brain aneurysm Heart disease Prostate CA Surgical History (Updated 12/14/22 @ 22:[address] Magdy Camp MD) History of carpal tunnel surgery History of herniorrhaphy Hx of appendectomy Hx of cholecystectomy Status post laminectomy Social History (Updated 12/14/22 @ 22:[address] Magdy Camp MD) household members: spouse Smoking Status: Former smoker alcohol intake: current alcohol intake frequency: 3 or more drinks per day substance use type: does not use ROS Constitutional Constitutional: Denies chills, fever(s) or weight gain ENT HEENT: Denies headache(s), nasal congestion or nasal discharge Cardiovascular Cardiovascular: Denies chest pain or palpitations Respiratory/Chest Respiratory/Chest: Denies cough, excessive phlegm production or shortness of breath with exertion Gastrointestinal Gastrointestinal: Denies abdominal pain, nausea or vomiting Genitourinary Genitourinary: Denies dysuria Musculoskeletal Musculoskeletal: Denies joint pain or joint swelling Integumentary Integumentary: Denies rash or wounds Neurologic Neurologic: Denies focal weakness, numbness or tingling Psychiatric Psychiatric: Denies anxiety, auditory hallucinations, depression, homicidal ideation or suicidal ideation Vital Signs Vital Signs Vital Signs: Weight Weight: 135.715 kg Body Mass Index (BMI) 41.7 Physical Exam Const alert General Appearance: cooperative HEENT normocephalic Eyes PERRL and EOMs intact bilaterally Neck supple, no JVD and no carotid bruits Resp normal respiratory effort, normal air movement and clear to auscultation bilater ally Cardio regular rate and regular rhythm GI normal to inspection, nondistended, normoactive bowel sounds, non-tender and non-distended Extremity normal capillary refill General Extremity: Negative for edema Skin no rashes or lesions noted General Skin Exam: no breakdown Neuro Neuro Narrative: Bilateral lower extremity weakness. 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 * Debility - PT/OT. * Pain - Tylenol 650mg q4h prn pain (1-3), [place] 5/325mg 1 tablet q4h prn pain (4-10), Lidoderm 1 patch td daily, Capsaicin topical bid. * Bowel - Cholestyramine 4gm daily, Loperamide 2mg daily. * Adult immunization - Administer pneumonia vaccine, covid19 vaccine, flu vaccine as appropriate. * DVT prophylaxis - Heparin 5000 units q8h. * Hypertension - Coreg 25mg bid, Lisinopril 40mg daily, Amlodipine 10mg daily. * Dry skin - Ammonium Lactate topical twice daily. * Urinary retention - Bethanechol 25mg tid. * Depression - Lexapro 20mg daily, Bupropion 75mg daily, stable chronic prison use, GDR not recommended. * Muscle spasm - Flexeril 5mg tid prn. * GERD - Famotidine 20mg bid. * Iron deficiency anemia - Ferrous sulfate 325mg daily. * Allergic rhinitis - Flonase 2 sprays nasal daily, Loratadine 10mg daily. * Neuropathic pain - Gabapentin 600mg tidcm. * Hypomagnesemia - Magnesium chloride 128mg daily. * Macular degeneration - Healthy Eyes 1 capsule daily.
[2022-12-14] MEDS: HYDROcodone Bitartrate/Apap 5/325 Tablet PO (22:55)
[2022-12-14] MEDS: cycloBENZAPRine HCl 5 MG TABLET PO (22:56)
[2022-12-14] MEDS: BETHANECHOL CHLORIDE 25 MG TABLET PO (22:57)
[2022-12-14] MEDS: Heparin Injection (Vial) 5,000 UNIT/ML VIAL 5000 UNIT SC (22:58)
--- NOTE | 2022-12-15 01:51 | NURSING ---
Pt requests to have x4 siderails while in bed so he can feel safe while sleeping.
[2022-12-15] MEDS: Acetaminophen 325 MG Tablet 650 MG PO (02:16)
[2022-12-15] MEDS: HYDROcodone Bitartrate/Apap 5/325 Tablet PO ×3 (02:56→18:33)
[2022-12-15] MEDS: BETHANECHOL CHLORIDE 25 MG TABLET PO ×3 (06:27→20:17)
[2022-12-15] MEDS: Lisinopril 40 MG Tablet PO (06:28)
[2022-12-15] MEDS: Escitalopram Oxalate 20 MG Tablet PO (06:28)
[2022-12-15] MEDS: Famotidine 20 MG Tablet PO ×2 (06:28→18:27)
[2022-12-15] MEDS: Loratadine 10 MG Tablet PO (06:28)
[2022-12-15] MEDS: buPROPion 75 MG Tablet PO (06:29)
[2022-12-15] MEDS: Magnesium Chloride 64 MG Delay Rel.Tablet 128 MG PO (06:29)
[2022-12-15] MEDS: Loperamide 2 MG Capsule PO (06:29)
[2022-12-15] MEDS: Heparin Injection (Vial) 5,000 UNIT/ML VIAL 5000 UNIT SC ×3 (06:35→20:18)
[2022-12-15] MEDS: Cholestyramine/Sucrose 4 GM/PACKET PO (06:35)
[2022-12-15] MEDS: Capsaicin 0.025% 1 APPLIC Tube TOPICAL ×2 (06:37→20:16)
[2022-12-15] MEDS: Ammonium Lactate 225 gm Bottle 1 APPLIC TOPICAL ×2 (06:42→20:15)
[2022-12-15 07:17] LABS: Absolute Lymphocyte Count 1.48 X10^3/uL (0.83-4.51); Absolute Neutrophil Count 2.8 X10^3/uL (2.0-7.7); Basophil# 0.02 X10^3/uL; Basophil% 0.4 % (0-1); Eosinophils% 5.6 % (0-5); Hematocrit 32.4 % (40-54); Hemoglobin 10.2 g/dL (13.0-16.5); Lymphocyte # 1.48 X10^3/ul (0.83-4.51); Lymphocyte % 27.8 % (19-41); Mean Corp Hgb Conc 31.5 g/dL (32-36); Mean Corpuscular Volume 101.6 fL (80-94); Mean Platelet Vol. 8.5 fl (6.2-12.0); Monocyte# 0.75 X10^3/uL; Monocyte% 14.1 % (0-10); NRBC Flagged by Analyzer 0 % (0-5); Neutrophil # 2.76 X10^3/uL (2.7-7.7); Neutrophil % 51.7 % (47-70); Platelet Count 210 K/mm3 (150-450); RBC Distribution Width CV 14.1 % (11.6-14.6); RBC Distribution Width SD 52.4 fl (35.1-43.9); Red Blood Count 3.19 M/mm3 (4.6-6.2); White Blood Count 5.3 K/mm3 (4.4-11.0)
[2022-12-15 07:39] LABS: Anion Gap 7 (5-15); BUN 23 mg/dL (7-18); BUN/Creat Ratio 30.5 RATIO (10-20); Calcium,Total 10.1 mg/dL (8.5-10.1); Chloride 106 mmol/L (98-107); Creatinine, Serum 0.75 mg/dL (0.70-1.30); EST Glomerular Filtration Rate 110 mL/min (>60); Est Glom Filt Rate - Afr Amer 134 mL/min (>60); Estimated Creatinine Clearance 104.58 ml/min; Glucose 103 mg/dL (74-106); Sodium Level 141 mmol/L (136-145)
[2022-12-15 08:25] VITALS: BP 154/80; PULSE 58
[2022-12-15] MEDS: Carvedilol 25 MG Tablet PO ×2 (08:27→18:27)
[2022-12-15] MEDS: Multivitamin (Healthy Eyes) Capsule 1 CAP PO (08:27)
[2022-12-15] MEDS: Gabapentin 600 MG Tablet PO ×3 (08:34→18:33)
[2022-12-15 09:11] VITALS: O2SAT 96
[2022-12-15 11:00] VITALS: O2SAT 95
[2022-12-15] MEDS: Lidocaine 5% Patch 1 PATCH TOPICAL (11:00)
[2022-12-15] MEDS: Tuberculin,Purif.prot.deriv. 50 TU/ML Vial 0.1 ML ID (11:01)
[2022-12-15 11:10] VITALS: PULSE 57; RESP 18; O2SAT 98
[2022-12-15] MEDS: Ferrous Sulfate 325 MG Tablet PO (11:10)
[2022-12-15 14:00] VITALS: BP 153/73; PULSE 59; RESP 18; TEMP 36.2; O2SAT 92
[2022-12-15] MEDS: Menthol/Lanolin/Calamine/Znox 113 GM Tube 1 APPLIC TOPICAL (20:14)
[2022-12-15] MEDS: amLODIPine 10 MG Tablet PO (20:17)
[2022-12-15] MEDS: cycloBENZAPRine HCl 5 MG TABLET PO (20:17)
--- NOTE | 2022-12-16 01:13 | NURSING ---
Patient states that he would like to have all four rails of bed up. He reported I know the risks and restated that he wanted the bedrails up
[2022-12-16] MEDS: Fluticasone 0.05% 1 SPRAY NASAL.SRY 2 SPRAY NASAL (06:08)
[2022-12-16] MEDS: Magnesium Chloride 64 MG Delay Rel.Tablet 128 MG PO (06:10)
[2022-12-16] MEDS: Loratadine 10 MG Tablet PO (06:10)
[2022-12-16] MEDS: BETHANECHOL CHLORIDE 25 MG TABLET PO ×3 (06:10→21:22)
[2022-12-16] MEDS: Cholestyramine/Sucrose 4 GM/PACKET PO (06:11)
[2022-12-16] MEDS: Lisinopril 40 MG Tablet PO (06:11)
[2022-12-16] MEDS: Famotidine 20 MG Tablet PO ×2 (06:11→17:33)
[2022-12-16] MEDS: Loperamide 2 MG Capsule PO (06:11)
[2022-12-16] MEDS: buPROPion 75 MG Tablet PO (06:11)
[2022-12-16] MEDS: Escitalopram Oxalate 20 MG Tablet PO (06:11)
[2022-12-16] MEDS: Heparin Injection (Vial) 5,000 UNIT/ML VIAL 5000 UNIT SC ×3 (06:13→21:23)
[2022-12-16] MEDS: HYDROcodone Bitartrate/Apap 5/325 Tablet PO ×3 (06:20→20:14)
[2022-12-16] MEDS: Ammonium Lactate 225 gm Bottle 1 APPLIC TOPICAL ×2 (06:21→20:07)
[2022-12-16] MEDS: Menthol/Lanolin/Calamine/Znox 113 GM Tube 1 APPLIC TOPICAL ×2 (06:23→20:07)
[2022-12-16] MEDS: Carvedilol 25 MG Tablet PO ×2 (08:07→17:33)
[2022-12-16] MEDS: Multivitamin (Healthy Eyes) Capsule 1 CAP PO (08:07)
[2022-12-16] MEDS: Gabapentin 600 MG Tablet PO ×3 (08:12→17:38)
[2022-12-16] MEDS: cycloBENZAPRine HCl 5 MG TABLET PO ×2 (08:13→17:38)
[2022-12-16] MEDS: Lidocaine 5% Patch 1 PATCH TOPICAL (10:10)
[2022-12-16] MEDS: Capsaicin 0.025% 1 APPLIC Tube TOPICAL (10:14)
[2022-12-16] MEDS: Ferrous Sulfate 325 MG Tablet PO (11:41)
--- NOTE | 2022-12-16 13:42 | NURSING ---
PT UP IN WHEEL CHAIR WHEELING AROUND UNIT AND IN FAMILY LOUNGE.
[2022-12-16 14:00] VITALS: BP 137/67; PULSE 61; RESP 18; TEMP 36.6; O2SAT 96
[2022-12-16 20:17] VITALS: PULSE 82; RESP 16; O2SAT 91
[2022-12-16] MEDS: amLODIPine 10 MG Tablet PO (21:22)
[2022-12-16 21:28] VITALS: BP 147/85; PULSE 76; RESP 16
[2022-12-17] MEDS: Ammonium Lactate 225 gm Bottle 1 APPLIC TOPICAL ×2 (06:49→17:28)
[2022-12-17] MEDS: Menthol/Lanolin/Calamine/Znox 113 GM Tube 1 APPLIC TOPICAL ×2 (06:50→17:28)
[2022-12-17] MEDS: Cholestyramine/Sucrose 4 GM/PACKET PO (06:51)
[2022-12-17] MEDS: Heparin Injection (Vial) 5,000 UNIT/ML VIAL 5000 UNIT SC ×3 (06:52→21:56)
[2022-12-17] MEDS: Famotidine 20 MG Tablet PO ×2 (06:52→17:29)
[2022-12-17] MEDS: buPROPion 75 MG Tablet PO (06:52)
[2022-12-17] MEDS: Loratadine 10 MG Tablet PO (06:52)
[2022-12-17] MEDS: Lisinopril 40 MG Tablet PO (06:52)
[2022-12-17] MEDS: Escitalopram Oxalate 20 MG Tablet PO (06:52)
[2022-12-17] MEDS: BETHANECHOL CHLORIDE 25 MG TABLET PO ×3 (06:52→21:56)
[2022-12-17] MEDS: Magnesium Chloride 64 MG Delay Rel.Tablet 128 MG PO (06:52)
[2022-12-17] MEDS: Fluticasone 0.05% 1 SPRAY NASAL.SRY 2 SPRAY NASAL (06:53)
[2022-12-17] MEDS: HYDROcodone Bitartrate/Apap 5/325 Tablet PO ×4 (07:02→21:56)
[2022-12-17] MEDS: Multivitamin (Healthy Eyes) Capsule 1 CAP PO (07:49)
[2022-12-17] MEDS: Carvedilol 25 MG Tablet PO ×2 (07:49→17:28)
[2022-12-17] MEDS: Gabapentin 600 MG Tablet PO ×3 (07:49→17:28)
--- NOTE | 2022-12-17 10:08 | NURSING ---
Refused Covid booster and educated and provided education pamphlet as well.
[2022-12-17] MEDS: cycloBENZAPRine HCl 5 MG TABLET PO ×2 (11:42→20:36)
[2022-12-17] MEDS: Lidocaine 5% Patch 1 PATCH TOPICAL (11:46)
[2022-12-17] MEDS: Ferrous Sulfate 325 MG Tablet PO (11:47)
[2022-12-17 14:00] VITALS: BP 142/64; PULSE 64; RESP 18; TEMP 36; O2SAT 94
--- NOTE | 2022-12-17 14:13 | PHA.CONS_ITS ---
TCU RX Drug Regimen Review Subjective: TCU Admission. 67 YOM presented to the ER with lower extremity injury. Hospitalized for T7 compression fracture, thoracic spinal stenosis with myelopathy, underwent surgical decompression 11/09/2022, [facility] 11/14/2022. Admitted to TCU with debility for strengthening and rehabilitation. Objective: Allergies lorazepam Allergy (Verified 12/15/22 02:02) Other Penicillins Allergy (Verified 10/30/22 12:51) Itching poison ever extract Allergy (Verified 12/15/22 02:02) Itching tizanidine [From Zanaflex] Allergy (Verified 12/15/22 02:02) Other Current Medications Generic Name Dose Route Start Last Admin Trade Name Freq PRN Reason Stop Dose Admin Acetaminophen 650 mg 12/14/22 21:31 12/15/22 02:16 Acetaminophen 325 Mg Tablet PO 650 mg Q4H PRN PRN Administration mild pain 1-3 Hydrocodone Bitart/Acetaminophen 1 tablet 12/14/22 22:05 12/17/22 11:49 Hydrocodone Bitartrate/Apap 5/325 Tablet PO 1 tablet Q4H PRN PRN Administration Moderate to severe pain 4-10 Amlodipine Besylate 10 mg 12/15/22 22:00 12/16/22 21:22 Amlodipine 10 Mg Tablet PO 10 mg QHS VERONICA Administration Bethanechol Chloride 25 mg 12/14/22 22:00 12/17/22 13:37 Bethanechol Chloride 25 Mg Tablet PO 25 mg TID VERONICA Administration Bupropion HCl 75 mg 12/15/22 06:00 12/17/22 06:52 Bupropion 75 Mg Tablet PO 75 mg DAILY VERONICA Administration Calamine/Phenol 1 applic 12/15/22 18:00 12/17/22 06:50 Menthol/Lanolin/Calamine/Znox 113 Gm Tube TOPICAL 1 applic BID VERONICA Administration Protocol Capsaicin 1 applic 12/15/22 06:00 12/17/22 06:54 Capsaicin 0.025% 1 Applic Tube TOPICAL Not Given BID VERONICA Protocol Carvedilol 25 mg 12/15/22 08:00 12/17/22 07:49 Carvedilol 25 Mg Tablet PO 25 mg BIDCM VERONICA Administration Cholestyramine Resin 4 gm 12/15/22 07:00 12/17/22 06:51 Cholestyramine/Sucrose 4 Gm/Packet PO 4 gm DAILY@0700 [facility] Administration Cyclobenzaprine HCl 5 mg 12/14/22 21:35 12/17/22 11:42 Cyclobenzaprine Hcl 5 Mg Tablet PO 5 mg TID PRN PRN Administration MUSCLE SPASM Escitalopram Oxalate 20 mg 12/15/22 06:00 12/17/22 06:52 Escitalopram Oxalate 20 Mg Tablet PO 20 mg DAILY VERONICA Administration Famotidine 20 mg 12/15/22 06:00 12/17/22 06:52 Famotidine 20 Mg Tablet PO 20 mg BID [facility] Administration Ferrous Sulfate 325 mg 12/15/22 12:00 12/17/22 11:47 Ferrous Sulfate 325 Mg Tablet PO 325 mg DAILY@1200 [facility] Administration Fluticasone Propionate 2 spray 12/15/22 06:00 12/17/22 06:53 Fluticasone 0.05% 1 [place] Nasal.Sry NASAL 2 spray DAILY [facility] Administration Gabapentin 600 mg 12/15/22 07:45 12/17/22 13:37 Gabapentin 600 Mg Tablet PO 600 mg TIDCM [facility] Administration Heparin Sodium (Porcine) 5,000 unit 12/14/22 22:00 12/17/22 13:37 Heparin Injection (Vial) 5,000 Unit/Ml Vial SC 5,000 unit Q8 [facility] Administration Lactic Acid 1 applic 12/15/22 06:00 12/17/22 06:49 Ammonium Lactate 225 Gm Bottle TOPICAL 1 applic BID [facility] Administration Protocol Lidocaine 1 patch 12/16/22 10:00 12/17/22 11:46 Lidocaine 5% Patch TOPICAL 1 patch DAILY@1000 [facility] Administration Lisinopril 40 mg 12/15/22 06:00 12/17/22 06:52 Lisinopril 40 Mg Tablet PO 40 mg DAILY [facility] Administration Loperamide HCl 2 mg 12/15/22 06:00 12/17/22 06:51 Loperamide 2 Mg Capsule PO Not Given DAILY [facility] Loratadine 10 mg 12/15/22 06:00 12/17/22 06:52 Loratadine 10 Mg Tablet PO 10 mg DAILY [facility] Administration Magnesium Chloride 128 mg 12/15/22 06:00 12/17/22 06:52 Magnesium Chloride 64 Mg Delay Rel.Tablet PO 128 mg DAILY [facility] Administration Multivitamins/Minerals 1 cap 12/15/22 08:00 12/17/22 07:49 Multivitamin (Healthy Eyes) Capsule PO 1 cap DAILYCM VERONICA Administration Tuberculin PPD 0.1 ml 12/22/22 10:00 Tuberculin,Purif.Prot.Deriv. 50 Tu/Ml Vial ID 12/22/22 10:01 X1 ONE Problem List (Last Reviewed 10/30/22 @ 13:[address] 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 (Acute) Hypertension (Chronic) Psoriasis (Acute) Vital Signs Temp Pulse Resp BP Pulse Ox O2 Del Method O2 Flow Rate 98 F 76 16 147/85 H 91 Room Air 2 12/16/22 14:00 12/16/22 21:28 12/16/22 21:28 12/16/22 21:28 12/16/22 20:17 12/16/22 20:17 12/15/22 09:11 Oxygen Flow Rate (L/min) 2 Oxygen Delivery Method Room Air Weight: 135.715 kg Body Mass Index (BMI) 41.7 Sodium 141 mmol/L (136-145) 12/15/22 06:20 Potassium 4.0 mmol/L (3.5-5.1) 12/15/22 06:20 Chloride 106 mmol/L (98-107) 12/15/22 06:20 Carbon Dioxide 28.0 mmol/L (21.0-32.0) 12/15/22 06:20 Anion Gap 7 (5-15) 12/15/22 06:20 BUN 23 mg/dL (7-18) H 12/15/22 06:20 Creatinine 0.75 mg/dL (0.70-1.30) 12/15/22 06:20 Est GFR (MDRD) Af Amer 134 mL/min (>60) 12/15/22 06:20 Est GFR (MDRD) Non-Af 110 mL/min (>60) 12/15/22 06:20 BUN/Creatinine Ratio 30.5 RATIO (10-20) H 12/15/22 06:20 Glucose 103 mg/dL (74-106) 12/15/22 06:20 Assessment/Plan: 1. Pain: acetaminophen 650mg PO Q4H PRN pain 1-3, [place] 5/325mg 1T PO Q4H PRN pain 4-10, lidocaine 5% patch 1 patch topically daily and capsaicin 0.025% topical BID. Resident has had 1 dose of acetaminophen and 9 doses of [place] for pain scores of 7-9 in the back/shoulder. Please continue to monitor for increased pain, PRN usage, constipation and respiratory depression. 2. Bowel: cholestyramine 4gm PO daily and loperamide 2mg PO daily. Last documented bowel movement 12/16/22. Please continue to monitor for diarrhea/constipation. 3. DVT prophylaxis: heparin 5000units SC Q8. Please continue to monitor for S/S of DVT/bleeding, hemoglobin (last 10.2g/dL) and platelets (last 210,000). 4. Hypertension: carvedilol 25mg PO BID, lisinopril 40mg PO daily and amlodipine 10mg PO daily. Please continue to monitor BP (last 147/85), HR (last 76), potassium (last 4mmol/L), renal function, cough and swelling. 5. Urinary retention: bethanechol 25mg PO TID. Please continue to monitor for dizziness, diarrhea, nausea and vomiting. 6. Muscle spasm: cyclobenzaprine 5mg PO TID PRN muscle spasm. Resident has had 5 doses. Please continue to monitor for spams, PRN usage, anticholinergic side effects (BEERs medication due to increased risk of these side effects), dementia/delirium (BEERs medication) and urinary retention (BEERs medication, pt receiving bethanechol). 7. GERD: famotidine 20mg PO BID. Please continue to monitor for S/S of GERD and renal function. 8. Iron deficiency anemia: ferrous sulfate 325mg PO daily. Please continue to monitor hemoglobin (last 10.2g/dL), constipation and dark stools. 9. Allergic rhinitis: fluticasone 0.05% nasal spray 2 sprays nasal daily and loratadine 10mg PO daily. Please continue to monitor for S/S of allergies and renal function. 10. Hypomagnesemia: magnesium chloride 128mg PO daily. Please consider ordering a magnesium level as there is no level in the chart. Thanks. 11. Macular degeneration: healthy eyes 1C PO daily. Please continue to monitor. Assessment/Plan for indications treated with psychotropic medications: 1. Depression: escitalopram 20mg PO daily and bupropion 75mg PO daily. Please see physician note regarding GDR. Please continue to monitor for suicidal ideation (black box warning), falls/fractures (BEERs medication) and sodium (141mmol/L). 2. Neuropathic pain: gabapentin 600mg PO TIDCM. Please continue to monitor for falls/fractures (BEERs medication), confusion and renal function (dose appropriate at this time). GDR not appropriate as this medication is being used for neuropathic pain. Medical chart and medication regimen reviewed. The following medication irregularities or issues were identified: *1. Magnesium chloride 128mg PO daily. Please consider ordering a magnesium level as there is no level in the chart. Thanks. Date of Note:: 12/17/22
--- NOTE | 2022-12-17 14:41 | CASEMGMT ---
Social Work Met with patient to complete initial assessment. Introduced self and role. Verified/updated contacts. Discussed code status and MOLST form. Pt confirmed full code. MOLST placed in Dr folder. Educated to [facility] with NRD 12/19 and continued stay is not guaranteed. Pt's goal is to return home at a more independent level. Pt does not have local support to assist physically. pt was mod I prior to injury in September. SW to coordinate DC needs. Will continue to follow. Norma Pedro MSW CRISIS WORKER
[2022-12-17 21:45] VITALS: PULSE 76; RESP 18
[2022-12-17] MEDS: amLODIPine 10 MG Tablet PO (21:56)
[2022-12-18] MEDS: Loratadine 10 MG Tablet PO (06:25)
[2022-12-18] MEDS: BETHANECHOL CHLORIDE 25 MG TABLET PO ×3 (06:25→21:34)
[2022-12-18] MEDS: Menthol/Lanolin/Calamine/Znox 113 GM Tube 1 APPLIC TOPICAL ×2 (06:25→17:09)
[2022-12-18] MEDS: Heparin Injection (Vial) 5,000 UNIT/ML VIAL 5000 UNIT SC ×3 (06:26→21:33)
[2022-12-18] MEDS: Fluticasone 0.05% 1 SPRAY NASAL.SRY 2 SPRAY NASAL (06:26)
[2022-12-18] MEDS: Lisinopril 40 MG Tablet PO (06:27)
[2022-12-18] MEDS: Ammonium Lactate 225 gm Bottle 1 APPLIC TOPICAL ×2 (06:27→17:09)
[2022-12-18] MEDS: Magnesium Chloride 64 MG Delay Rel.Tablet 128 MG PO (06:27)
[2022-12-18] MEDS: Famotidine 20 MG Tablet PO ×2 (06:27→17:10)
[2022-12-18] MEDS: Escitalopram Oxalate 20 MG Tablet PO (06:27)
[2022-12-18] MEDS: buPROPion 75 MG Tablet PO (06:27)
[2022-12-18] MEDS: Cholestyramine/Sucrose 4 GM/PACKET PO (06:29)
[2022-12-18] MEDS: HYDROcodone Bitartrate/Apap 5/325 Tablet PO ×3 (06:44→21:34)
[2022-12-18 08:00] VITALS: BMI 42.7
[2022-12-18] MEDS: Multivitamin (Healthy Eyes) Capsule 1 CAP PO (08:08)
[2022-12-18] MEDS: Gabapentin 600 MG Tablet PO ×3 (08:08→17:09)
[2022-12-18] MEDS: Carvedilol 25 MG Tablet PO ×2 (08:08→17:09)
[2022-12-18] MEDS: Lidocaine 5% Patch 1 PATCH TOPICAL (08:10)
[2022-12-18] MEDS: cycloBENZAPRine HCl 5 MG TABLET PO ×3 (08:13→21:37)
[2022-12-18] MEDS: Ferrous Sulfate 325 MG Tablet PO (13:27)
[2022-12-18 14:00] VITALS: BP 150/65; PULSE 61; RESP 18; TEMP 36.2; O2SAT 95
[2022-12-18] MEDS: Capsaicin 0.025% 1 APPLIC Tube TOPICAL (17:11)
[2022-12-18] MEDS: amLODIPine 10 MG Tablet PO (21:35)
[2022-12-19] MEDS: Famotidine 20 MG Tablet PO ×2 (06:19→17:42)
[2022-12-19] MEDS: BETHANECHOL CHLORIDE 25 MG TABLET PO ×3 (06:19→23:05)
[2022-12-19] MEDS: buPROPion 75 MG Tablet PO (06:19)
[2022-12-19] MEDS: Fluticasone 0.05% 1 SPRAY NASAL.SRY 2 SPRAY NASAL (06:20)
[2022-12-19] MEDS: Escitalopram Oxalate 20 MG Tablet PO (06:20)
[2022-12-19] MEDS: Loratadine 10 MG Tablet PO (06:20)
[2022-12-19] MEDS: Loperamide 2 MG Capsule PO (06:20)
[2022-12-19] MEDS: Menthol/Lanolin/Calamine/Znox 113 GM Tube 1 APPLIC TOPICAL ×2 (06:22→17:43)
[2022-12-19] MEDS: Ammonium Lactate 225 gm Bottle 1 APPLIC TOPICAL ×2 (06:24→17:43)
[2022-12-19] MEDS: Heparin Injection (Vial) 5,000 UNIT/ML VIAL 5000 UNIT SC ×3 (06:24→23:05)
[2022-12-19] MEDS: Magnesium Chloride 64 MG Delay Rel.Tablet 128 MG PO (06:26)
[2022-12-19] MEDS: Capsaicin 0.025% 1 APPLIC Tube TOPICAL (06:26)
[2022-12-19] MEDS: Lisinopril 40 MG Tablet PO (06:27)
[2022-12-19] MEDS: HYDROcodone Bitartrate/Apap 5/325 Tablet PO ×4 (06:34→23:11)
--- NOTE | 2022-12-19 09:05 | CASEMGMT ---
Social Work IDT met with patient for care plan meeting. Discussed patient's progress in PT/OT/SN. Educated to [facility] insurance with NRD 12/19 and continued stay is not guaranteed. Pt's goal is to return home alone at an independent level. Pt does not have local family support. A friend can provide IADL assistance at times, but not physical assistance. Pt is motivated. SW to continue to follow for DC planning. Norma Pedro, OUTPATIENT SURGERY RN MANUFACTURING TEST TECHNICIAN
[2022-12-19] MEDS: Cholestyramine/Sucrose 4 GM/PACKET PO (09:13)
[2022-12-19] MEDS: Carvedilol 25 MG Tablet PO ×2 (09:13→17:42)
[2022-12-19] MEDS: Lidocaine 5% Patch 1 PATCH TOPICAL (09:13)
[2022-12-19] MEDS: Multivitamin (Healthy Eyes) Capsule 1 CAP PO (09:14)
[2022-12-19] MEDS: Gabapentin 600 MG Tablet PO ×3 (09:17→17:43)
[2022-12-19 09:20] VITALS: BP 111/65; PULSE 63
[2022-12-19] MEDS: Ferrous Sulfate 325 MG Tablet PO (11:52)
[2022-12-19 14:00] VITALS: BP 146/70; PULSE 62; RESP 16; TEMP 36.4; O2SAT 92
[2022-12-19] MEDS: cycloBENZAPRine HCl 5 MG TABLET PO ×2 (14:05→19:44)
[2022-12-19] MEDS: amLODIPine 10 MG Tablet PO (23:06)
[2022-12-20] MEDS: Ammonium Lactate 225 gm Bottle 1 APPLIC TOPICAL ×2 (05:10→20:36)
[2022-12-20] MEDS: Capsaicin 0.025% 1 APPLIC Tube TOPICAL (05:10)
[2022-12-20] MEDS: Fluticasone 0.05% 1 SPRAY NASAL.SRY 2 SPRAY NASAL (05:11)
[2022-12-20] MEDS: HYDROcodone Bitartrate/Apap 5/325 Tablet PO ×3 (05:11→21:26)
[2022-12-20] MEDS: Loperamide 2 MG Capsule PO (05:12)
[2022-12-20] MEDS: Loratadine 10 MG Tablet PO (05:12)
[2022-12-20] MEDS: BETHANECHOL CHLORIDE 25 MG TABLET PO ×3 (05:12→20:20)
[2022-12-20] MEDS: Escitalopram Oxalate 20 MG Tablet PO (05:12)
[2022-12-20] MEDS: buPROPion 75 MG Tablet PO (05:13)
[2022-12-20] MEDS: Magnesium Chloride 64 MG Delay Rel.Tablet 128 MG PO (05:13)
[2022-12-20] MEDS: Lisinopril 40 MG Tablet PO (05:13)
[2022-12-20] MEDS: Famotidine 20 MG Tablet PO ×2 (05:13→17:49)
[2022-12-20] MEDS: Heparin Injection (Vial) 5,000 UNIT/ML VIAL 5000 UNIT SC ×3 (05:14→20:20)
[2022-12-20] MEDS: Menthol/Lanolin/Calamine/Znox 113 GM Tube 1 APPLIC TOPICAL ×2 (05:14→20:37)
[2022-12-20] MEDS: Cholestyramine/Sucrose 4 GM/PACKET PO (08:20)
[2022-12-20] MEDS: Carvedilol 25 MG Tablet PO ×2 (08:20→17:48)
[2022-12-20] MEDS: Multivitamin (Healthy Eyes) Capsule 1 CAP PO (08:20)
[2022-12-20] MEDS: Gabapentin 600 MG Tablet PO ×3 (08:28→17:48)
[2022-12-20 08:30] VITALS: BP 128/74; PULSE 59
[2022-12-20] MEDS: Lidocaine 5% Patch 1 PATCH TOPICAL (09:54)
[2022-12-20] MEDS: Ferrous Sulfate 325 MG Tablet PO (11:54)
[2022-12-20] MEDS: cycloBENZAPRine HCl 5 MG TABLET PO ×2 (11:55→20:19)
[2022-12-20 13:54] VITALS: BP 151/77; PULSE 57; RESP 18; TEMP 36.2; O2SAT 96
--- NOTE | 2022-12-20 15:04 | CHAPLAIN ---
Type of Pastoral Visit _x__ Initial Visit ___ Follow-up Visit ___ On-call Visit ___ General Patient Visit ___ Spiritual Assessment ___ Family Conference ___ Bereavement ___ Rapid Response ___ Code Blue ___ Other (describe below) Pastoral Care Referral From _x__ Patient ___ Family ___ Nurse ___ Physician ___ Pmo Analyst ___ Director Of Broadcast ___ Other (describe below) Sacrament/Intervention _x__ Active listening ___ Anointing ___ Jainism ___ Bereavement ___ Communion _x__ Cindi exploration ___ _x__ Life review _x__ Prayer ___ Reconciliation ___ Sacrament of Sick _x__ Supportive presence ___ Wedding ___ Other (describe below) Pastoral Comments patient was resting but awake; pt states it is fine to visit for a short time; pt gives background on his back and surgeries; pt acknowledges that he has been on a life long journey to reconcile life and cindi; pt expresses his thoughts on taoism and asks more questions about that; pt considers himself a believer but still has questions; pt welcomes presence, time to ask his questions, and prayer; pt would benefit from further visits for emotional and spiritual support;
--- NOTE | 2022-12-20 15:25 | NS ---
Notified by dietary staff that Res wanted to speak w/ RDN. Res states he is on a magnesium supplement, wanted RDN opinion on magnesium supplement and if he should be taking it. He is unsure why he is on magnesium supplement. Per review of records, Res had magnesium on outside medication list. Noted recommendation to check current magnesium levels per pharmacist. Discussed w/ nurse, Brandon- she will ask Dr. Camp to check magnesium and further address Res concerns re: magnesium supplement. Res w/ no other concerns at this time. Sheyla Rebolledo MS, RDN, LD
[2022-12-20] MEDS: amLODIPine 10 MG Tablet PO (20:20)
[2022-12-20 22:11] VITALS: O2SAT 90
[2022-12-20] MEDS: Acetaminophen 325 MG Tablet 650 MG PO (23:36)
[2022-12-21] MEDS: buPROPion 75 MG Tablet PO (06:11)
[2022-12-21] MEDS: BETHANECHOL CHLORIDE 25 MG TABLET PO ×3 (06:11→19:44)
[2022-12-21] MEDS: Lisinopril 40 MG Tablet PO (06:11)
[2022-12-21] MEDS: Magnesium Chloride 64 MG Delay Rel.Tablet 128 MG PO (06:11)
[2022-12-21] MEDS: Famotidine 20 MG Tablet PO ×2 (06:11→17:53)
[2022-12-21] MEDS: Loratadine 10 MG Tablet PO (06:11)
[2022-12-21] MEDS: Escitalopram Oxalate 20 MG Tablet PO (06:12)
[2022-12-21] MEDS: HYDROcodone Bitartrate/Apap 5/325 Tablet PO ×4 (06:16→23:26)
[2022-12-21] MEDS: Heparin Injection (Vial) 5,000 UNIT/ML VIAL 5000 UNIT SC ×3 (06:17→19:45)
[2022-12-21] MEDS: Ammonium Lactate 225 gm Bottle 1 APPLIC TOPICAL ×2 (06:24→17:55)
[2022-12-21] MEDS: Capsaicin 0.025% 1 APPLIC Tube TOPICAL ×2 (06:32→17:53)
[2022-12-21] MEDS: Cholestyramine/Sucrose 4 GM/PACKET PO (06:33)
[2022-12-21] MEDS: Menthol/Lanolin/Calamine/Znox 113 GM Tube 1 APPLIC TOPICAL ×2 (06:35→19:56)
[2022-12-21] MEDS: Multivitamin (Healthy Eyes) Capsule 1 CAP PO (08:12)
[2022-12-21] MEDS: Gabapentin 600 MG Tablet PO ×3 (08:12→17:52)
[2022-12-21] MEDS: Carvedilol 25 MG Tablet PO ×2 (08:12→17:54)
[2022-12-21] MEDS: cycloBENZAPRine HCl 5 MG TABLET PO ×2 (08:17→19:43)
[2022-12-21 08:18] VITALS: BP 140/72; PULSE 66
--- NOTE | 2022-12-21 09:06 | NURSING ---
Violin Restorer Note; MDS Complete
[2022-12-21 10:00] VITALS: O2SAT 96
[2022-12-21] MEDS: Lidocaine 5% Patch 1 PATCH TOPICAL (10:26)
--- NOTE | 2022-12-21 11:49 | CASEMGMT ---
Social Work BIMS () and PHQ-9 (11/23) completed for MDS assessment. Norma Pedro MSW PANEL ASSEMBLER
[2022-12-21] MEDS: Ferrous Sulfate 325 MG Tablet PO (12:22)
[2022-12-21 14:00] VITALS: BP 117/71; PULSE 54; RESP 18; TEMP 36.3; O2SAT 95
[2022-12-21 18:02] VITALS: PULSE 72
[2022-12-21] MEDS: amLODIPine 10 MG Tablet PO (19:45)
[2022-12-22] MEDS: Magnesium Chloride 64 MG Delay Rel.Tablet 128 MG PO (06:35)
[2022-12-22] MEDS: Cholestyramine/Sucrose 4 GM/PACKET PO (06:35)
[2022-12-22] MEDS: BETHANECHOL CHLORIDE 25 MG TABLET PO ×3 (06:35→20:40)
[2022-12-22] MEDS: Famotidine 20 MG Tablet PO ×2 (06:36→17:11)
[2022-12-22] MEDS: Escitalopram Oxalate 20 MG Tablet PO (06:36)
[2022-12-22] MEDS: Lisinopril 40 MG Tablet PO (06:36)
[2022-12-22] MEDS: Loratadine 10 MG Tablet PO (06:36)
[2022-12-22] MEDS: buPROPion 75 MG Tablet PO (06:36)
[2022-12-22] MEDS: Heparin Injection (Vial) 5,000 UNIT/ML VIAL 5000 UNIT SC ×3 (06:37→20:39)
[2022-12-22] MEDS: Fluticasone 0.05% 1 SPRAY NASAL.SRY 2 SPRAY NASAL (06:51)
[2022-12-22] MEDS: HYDROcodone Bitartrate/Apap 5/325 Tablet PO ×3 (06:57→20:40)
[2022-12-22] MEDS: Ammonium Lactate 225 gm Bottle 1 APPLIC TOPICAL ×2 (06:58→17:13)
[2022-12-22] MEDS: Menthol/Lanolin/Calamine/Znox 113 GM Tube 1 APPLIC TOPICAL ×2 (06:59→17:13)
[2022-12-22 07:46] LABS: Absolute Lymphocyte Count 1.67 X10^3/uL (0.83-4.51); Absolute Neutrophil Count 2.7 X10^3/uL (2.0-7.7); Basophil# 0.02 X10^3/uL; Basophil% 0.4 % (0-1); Eosinophil# 0.28 X10^3/uL; Eosinophils% 5.1 % (0-5); Hematocrit 32.9 % (40-54); Hemoglobin 10.3 g/dL (13.0-16.5); Lymphocyte # 1.67 X10^3/ul (0.83-4.51); Lymphocyte % 30.2 % (19-41); Mean Corp Hgb Conc 31.3 g/dL (32-36); Mean Corpuscular Hgb 31.7 pg (27.0-32.0); Mean Corpuscular Volume 101.2 fL (80-94); Mean Platelet Vol. 8.4 fl (6.2-12.0); Monocyte# 0.85 X10^3/uL; Monocyte% 15.4 % (0-10); NRBC Flagged by Analyzer 0 % (0-5); Neutrophil # 2.69 X10^3/uL (2.7-7.7); Neutrophil % 48.5 % (47-70); Platelet Count 201 K/mm3 (150-450); RBC Distribution Width CV 13.9 % (11.6-14.6); RBC Distribution Width SD 51.7 fl (35.1-43.9); Red Blood Count 3.25 M/mm3 (4.6-6.2); White Blood Count 5.5 K/mm3 (4.4-11.0)
[2022-12-22 07:59] LABS: Anion Gap 6 (5-15); BUN 20 mg/dL (7-18); BUN/Creat Ratio 23.2 RATIO (10-20); Calcium,Total 10.2 mg/dL (8.5-10.1); Chloride 105 mmol/L (98-107); Creatinine, Serum 0.86 mg/dL (0.70-1.30); EST Glomerular Filtration Rate 94 mL/min (>60); Est Glom Filt Rate - Afr Amer 114 mL/min (>60); Estimated Creatinine Clearance 91.21 ml/min; Glucose 100 mg/dL (74-106); Sodium Level 140 mmol/L (136-145)
[2022-12-22] MEDS: Carvedilol 25 MG Tablet PO ×2 (08:14→17:10)
[2022-12-22] MEDS: Gabapentin 600 MG Tablet PO ×3 (08:14→17:10)
[2022-12-22] MEDS: Multivitamin (Healthy Eyes) Capsule 1 CAP PO (08:14)
[2022-12-22] MEDS: cycloBENZAPRine HCl 5 MG TABLET PO ×2 (09:36→18:38)
[2022-12-22] MEDS: Lidocaine 5% Patch 1 PATCH TOPICAL (10:42)
[2022-12-22] MEDS: Tuberculin,Purif.prot.deriv. 50 TU/ML Vial 0.1 ML ID (10:45)
[2022-12-22] MEDS: Ferrous Sulfate 325 MG Tablet PO (12:03)
[2022-12-22 14:00] VITALS: BP 143/87; PULSE 63; RESP 16; TEMP 36.5; O2SAT 91
[2022-12-22] MEDS: Capsaicin 0.025% 1 APPLIC Tube TOPICAL (17:11)
[2022-12-22] MEDS: amLODIPine 10 MG Tablet PO (20:40)
[2022-12-22 21:00] VITALS: O2SAT 94
[2022-12-22] MEDS: Acetaminophen 325 MG Tablet 650 MG PO (23:15)
[2022-12-23] MEDS: HYDROcodone Bitartrate/Apap 5/325 Tablet PO ×3 (02:05→21:53)
[2022-12-23] MEDS: Cholestyramine/Sucrose 4 GM/PACKET PO (06:31)
[2022-12-23] MEDS: cycloBENZAPRine HCl 5 MG TABLET PO ×3 (06:31→21:54)
[2022-12-23] MEDS: Loratadine 10 MG Tablet PO (06:32)
[2022-12-23] MEDS: Escitalopram Oxalate 20 MG Tablet PO (06:32)
[2022-12-23] MEDS: Lisinopril 40 MG Tablet PO (06:33)
[2022-12-23] MEDS: buPROPion 75 MG Tablet PO (06:33)
[2022-12-23] MEDS: BETHANECHOL CHLORIDE 25 MG TABLET PO ×3 (06:33→21:54)
[2022-12-23] MEDS: Famotidine 20 MG Tablet PO ×2 (06:33→17:58)
[2022-12-23] MEDS: Magnesium Chloride 64 MG Delay Rel.Tablet 128 MG PO (06:33)
[2022-12-23] MEDS: Heparin Injection (Vial) 5,000 UNIT/ML VIAL 5000 UNIT SC ×3 (06:34→21:54)
[2022-12-23] MEDS: Fluticasone 0.05% 1 SPRAY NASAL.SRY 2 SPRAY NASAL (06:34)
[2022-12-23] MEDS: Capsaicin 0.025% 1 APPLIC Tube TOPICAL ×2 (06:35→18:03)
[2022-12-23] MEDS: Ammonium Lactate 225 gm Bottle 1 APPLIC TOPICAL ×2 (06:39→18:02)
[2022-12-23] MEDS: Menthol/Lanolin/Calamine/Znox 113 GM Tube 1 APPLIC TOPICAL ×2 (06:48→18:01)
[2022-12-23] MEDS: Gabapentin 600 MG Tablet PO ×3 (08:03→17:57)
[2022-12-23] MEDS: Multivitamin (Healthy Eyes) Capsule 1 CAP PO (08:04)
[2022-12-23] MEDS: Lidocaine 5% Patch 1 PATCH TOPICAL (08:04)
[2022-12-23] MEDS: Carvedilol 25 MG Tablet PO ×2 (08:05→17:58)
[2022-12-23] MEDS: Ferrous Sulfate 325 MG Tablet PO (11:59)
[2022-12-23 14:00] VITALS: BP 119/53; PULSE 55; RESP 16; TEMP 36.3; O2SAT 96
[2022-12-23] MEDS: amLODIPine 10 MG Tablet PO (21:54)
[2022-12-23 22:00] VITALS: O2SAT 97
[2022-12-24] MEDS: HYDROcodone Bitartrate/Apap 5/325 Tablet PO ×3 (05:10→22:16)
[2022-12-24] MEDS: Heparin Injection (Vial) 5,000 UNIT/ML VIAL 5000 UNIT SC ×3 (05:10→22:24)
[2022-12-24] MEDS: Cholestyramine/Sucrose 4 GM/PACKET PO (05:11)
[2022-12-24] MEDS: Fluticasone 0.05% 1 SPRAY NASAL.SRY 2 SPRAY NASAL (05:11)
[2022-12-24] MEDS: BETHANECHOL CHLORIDE 25 MG TABLET PO ×3 (05:12→22:17)
[2022-12-24] MEDS: Magnesium Chloride 64 MG Delay Rel.Tablet 128 MG PO (05:13)
[2022-12-24] MEDS: buPROPion 75 MG Tablet PO (05:13)
[2022-12-24] MEDS: Lisinopril 40 MG Tablet PO (05:13)
[2022-12-24] MEDS: Loratadine 10 MG Tablet PO (05:13)
[2022-12-24] MEDS: Famotidine 20 MG Tablet PO ×2 (05:13→18:13)
[2022-12-24] MEDS: Escitalopram Oxalate 20 MG Tablet PO (05:14)
[2022-12-24] MEDS: Ammonium Lactate 225 gm Bottle 1 APPLIC TOPICAL ×2 (05:18→22:26)
[2022-12-24] MEDS: Capsaicin 0.025% 1 APPLIC Tube TOPICAL ×2 (06:39→22:15)
[2022-12-24] MEDS: Menthol/Lanolin/Calamine/Znox 113 GM Tube 1 APPLIC TOPICAL ×2 (06:44→22:29)
[2022-12-24] MEDS: Carvedilol 25 MG Tablet PO ×2 (08:37→18:13)
[2022-12-24] MEDS: Multivitamin (Healthy Eyes) Capsule 1 CAP PO (08:37)
[2022-12-24] MEDS: cycloBENZAPRine HCl 5 MG TABLET PO ×2 (08:42→22:16)
[2022-12-24 08:45] VITALS: BP 137/72; PULSE 62
[2022-12-24] MEDS: Lidocaine 5% Patch 1 PATCH TOPICAL (09:25)
[2022-12-24] MEDS: Gabapentin 600 MG Tablet PO ×3 (09:25→18:17)
[2022-12-24] MEDS: Ferrous Sulfate 325 MG Tablet PO (12:15)
[2022-12-24 14:00] VITALS: BP 130/80; PULSE 55; RESP 14; TEMP 36.2; O2SAT 95
[2022-12-24 18:12] VITALS: PULSE 71
[2022-12-24] MEDS: Hydrocortisone 2.5% Crm 1 APPLIC TOPICAL (18:12)
[2022-12-24] MEDS: amLODIPine 10 MG Tablet PO (22:18)
[2022-12-24 23:44] VITALS: O2SAT 96
[2022-12-25] MEDS: HYDROcodone Bitartrate/Apap 5/325 Tablet PO ×3 (06:21→23:03)
[2022-12-25] MEDS: Escitalopram Oxalate 20 MG Tablet PO (06:23)
[2022-12-25] MEDS: Magnesium Chloride 64 MG Delay Rel.Tablet 128 MG PO (06:23)
[2022-12-25] MEDS: BETHANECHOL CHLORIDE 25 MG TABLET PO ×3 (06:23→21:00)
[2022-12-25] MEDS: Lisinopril 40 MG Tablet PO (06:24)
[2022-12-25] MEDS: buPROPion 75 MG Tablet PO (06:24)
[2022-12-25] MEDS: Cholestyramine/Sucrose 4 GM/PACKET PO (06:25)
[2022-12-25] MEDS: Heparin Injection (Vial) 5,000 UNIT/ML VIAL 5000 UNIT SC ×3 (06:25→21:00)
[2022-12-25] MEDS: Famotidine 20 MG Tablet PO ×2 (06:25→18:05)
[2022-12-25] MEDS: Fluticasone 0.05% 1 SPRAY NASAL.SRY 2 SPRAY NASAL (06:26)
[2022-12-25] MEDS: Loratadine 10 MG Tablet PO (06:35)
[2022-12-25] MEDS: Menthol/Lanolin/Calamine/Znox 113 GM Tube 1 APPLIC TOPICAL ×2 (06:38→18:04)
[2022-12-25] MEDS: Carvedilol 25 MG Tablet PO ×2 (07:42→18:05)
[2022-12-25] MEDS: Gabapentin 600 MG Tablet PO ×3 (07:42→18:04)
[2022-12-25] MEDS: Multivitamin (Healthy Eyes) Capsule 1 CAP PO (07:43)
[2022-12-25] MEDS: cycloBENZAPRine HCl 5 MG TABLET PO ×3 (07:44→21:00)
[2022-12-25 07:49] VITALS: BP 119/64; PULSE 62
[2022-12-25 08:00] VITALS: BMI 43.5
[2022-12-25] MEDS: Ammonium Lactate 225 gm Bottle 1 APPLIC TOPICAL ×2 (09:04→20:57)
[2022-12-25] MEDS: Lidocaine 5% Patch 1 PATCH TOPICAL (09:09)
[2022-12-25] MEDS: Hydrocortisone 2.5% Crm 1 APPLIC TOPICAL (09:10)
[2022-12-25 09:15] VITALS: PULSE 61; RESP 18; O2SAT 97
[2022-12-25] MEDS: Ferrous Sulfate 325 MG Tablet PO (11:32)
[2022-12-25 14:00] VITALS: BP 125/71; PULSE 68; RESP 18; TEMP 36.7; O2SAT 92
--- NOTE | 2022-12-25 15:11 | CASEMGMT ---
Social Work IDT discussed pt's progress in therapy and DC recommendations. SW spoke with pt to discuss DC preparation in the event insurance issues LCD prior to when pt is ready to return home alone. Pt is making good progress and IDT is recommending continued stay. Explained the recommendations for home are for pt to obtain all AE, ramp, grab bars, shower chair. SW to coordinate through insurance a graciela FWW, graciela drop arm BSC, graciela drop arm w/c w/ELR. Pt is needing max assist with ADLs and transfers. Pt acknowledges he will need help at home at this level. SW offered private pay in TCU or private pay in another SNF, if pt cannot return home. Pt expressed understanding, and has support at home but not for toileting or 24/7 assistance. SW encouraged to process information and notify this worker if there are any questions. Pt appreciative. SW to continue to follow. Norma Pedro, RETAIL SPECIALIST RETAIL WAREHOUSE SUPERVISOR
[2022-12-25] MEDS: amLODIPine 10 MG Tablet PO (21:00)
[2022-12-26] MEDS: BETHANECHOL CHLORIDE 25 MG TABLET PO ×3 (06:05→21:43)
[2022-12-26] MEDS: buPROPion 75 MG Tablet PO (06:05)
[2022-12-26] MEDS: Fluticasone 0.05% 1 SPRAY NASAL.SRY 2 SPRAY NASAL (06:05)
[2022-12-26] MEDS: Heparin Injection (Vial) 5,000 UNIT/ML VIAL 5000 UNIT SC ×3 (06:05→21:44)
[2022-12-26] MEDS: Cholestyramine/Sucrose 4 GM/PACKET PO (06:06)
[2022-12-26] MEDS: Loratadine 10 MG Tablet PO (06:06)
[2022-12-26] MEDS: Magnesium Chloride 64 MG Delay Rel.Tablet 128 MG PO (06:06)
[2022-12-26] MEDS: Famotidine 20 MG Tablet PO ×2 (06:06→17:45)
[2022-12-26] MEDS: Escitalopram Oxalate 20 MG Tablet PO (06:06)
[2022-12-26] MEDS: Ammonium Lactate 225 gm Bottle 1 APPLIC TOPICAL ×2 (06:08→17:45)
[2022-12-26 06:15] VITALS: BP 135/70; PULSE 62
[2022-12-26] MEDS: HYDROcodone Bitartrate/Apap 5/325 Tablet PO ×4 (06:15→21:42)
[2022-12-26] MEDS: cycloBENZAPRine HCl 5 MG TABLET PO ×3 (06:18→21:42)
[2022-12-26] MEDS: Lisinopril 40 MG Tablet PO (06:19)
[2022-12-26] MEDS: Menthol/Lanolin/Calamine/Znox 113 GM Tube 1 APPLIC TOPICAL ×2 (06:20→17:46)
[2022-12-26] MEDS: Lidocaine 5% Patch 1 PATCH TOPICAL (08:11)
[2022-12-26] MEDS: Multivitamin (Healthy Eyes) Capsule 1 CAP PO (08:11)
[2022-12-26] MEDS: Gabapentin 600 MG Tablet PO ×3 (08:11→17:51)
[2022-12-26] MEDS: Carvedilol 25 MG Tablet PO ×2 (08:11→17:45)
[2022-12-26] MEDS: Ferrous Sulfate 325 MG Tablet PO (12:56)
[2022-12-26 14:00] VITALS: BP 131/68; PULSE 62; RESP 16; TEMP 36.3; O2SAT 96
[2022-12-26] MEDS: amLODIPine 10 MG Tablet PO (21:44)
[2022-12-26] MEDS: Capsaicin 0.025% 1 APPLIC Tube TOPICAL (21:44)
[2022-12-26 22:29] VITALS: O2SAT 95
[2022-12-27] MEDS: Fluticasone 0.05% 1 SPRAY NASAL.SRY 2 SPRAY NASAL (05:08)
[2022-12-27] MEDS: BETHANECHOL CHLORIDE 25 MG TABLET PO ×3 (05:09→20:35)
[2022-12-27] MEDS: Escitalopram Oxalate 20 MG Tablet PO (05:09)
[2022-12-27] MEDS: Famotidine 20 MG Tablet PO ×2 (05:09→17:56)
[2022-12-27] MEDS: Lisinopril 40 MG Tablet PO (05:09)
[2022-12-27] MEDS: buPROPion 75 MG Tablet PO (05:09)
[2022-12-27] MEDS: Loratadine 10 MG Tablet PO (05:09)
[2022-12-27] MEDS: Cholestyramine/Sucrose 4 GM/PACKET PO (05:10)
[2022-12-27] MEDS: Magnesium Chloride 64 MG Delay Rel.Tablet 128 MG PO (05:10)
[2022-12-27] MEDS: Heparin Injection (Vial) 5,000 UNIT/ML VIAL 5000 UNIT SC ×3 (05:10→20:35)
[2022-12-27] MEDS: HYDROcodone Bitartrate/Apap 5/325 Tablet PO ×4 (05:14→20:33)
[2022-12-27] MEDS: Capsaicin 0.025% 1 APPLIC Tube TOPICAL ×2 (05:15→20:36)
[2022-12-27] MEDS: Ammonium Lactate 225 gm Bottle 1 APPLIC TOPICAL ×2 (05:15→17:55)
[2022-12-27] MEDS: Menthol/Lanolin/Calamine/Znox 113 GM Tube 1 APPLIC TOPICAL ×2 (05:22→17:58)
[2022-12-27] MEDS: Gabapentin 600 MG Tablet PO ×3 (08:19→17:55)
[2022-12-27] MEDS: Multivitamin (Healthy Eyes) Capsule 1 CAP PO (08:20)
[2022-12-27] MEDS: Lidocaine 5% Patch 1 PATCH TOPICAL (08:20)
[2022-12-27] MEDS: Carvedilol 25 MG Tablet PO ×2 (08:20→17:56)
[2022-12-27] MEDS: cycloBENZAPRine HCl 5 MG TABLET PO ×2 (08:24→17:57)
--- NOTE | 2022-12-27 10:21 | MDS.RN ---
Information for the mds was obtained from review of the clinical record, interview of resident, staff, and direct observation of resident's care.
[2022-12-27] MEDS: Ferrous Sulfate 325 MG Tablet PO (11:49)
[2022-12-27 14:00] VITALS: BP 139/78; PULSE 51; RESP 16; TEMP 35.9; O2SAT 97
[2022-12-27] MEDS: amLODIPine 10 MG Tablet PO (20:36)
[2022-12-28] MEDS: HYDROcodone Bitartrate/Apap 5/325 Tablet PO ×4 (03:12→21:55)
[2022-12-28] MEDS: cycloBENZAPRine HCl 5 MG TABLET PO ×3 (03:13→21:30)
[2022-12-28] MEDS: Cholestyramine/Sucrose 4 GM/PACKET PO (07:03)
[2022-12-28] MEDS: Lisinopril 40 MG Tablet PO (07:04)
[2022-12-28] MEDS: Magnesium Chloride 64 MG Delay Rel.Tablet 128 MG PO (07:04)
[2022-12-28] MEDS: Loratadine 10 MG Tablet PO (07:05)
[2022-12-28] MEDS: Famotidine 20 MG Tablet PO ×2 (07:05→17:47)
[2022-12-28] MEDS: buPROPion 75 MG Tablet PO (07:05)
[2022-12-28] MEDS: Escitalopram Oxalate 20 MG Tablet PO (07:05)
[2022-12-28] MEDS: BETHANECHOL CHLORIDE 25 MG TABLET PO ×3 (07:05→20:21)
[2022-12-28] MEDS: Heparin Injection (Vial) 5,000 UNIT/ML VIAL 5000 UNIT SC ×3 (07:08→20:21)
[2022-12-28] MEDS: Fluticasone 0.05% 1 SPRAY NASAL.SRY 2 SPRAY NASAL (07:11)
[2022-12-28] MEDS: Ammonium Lactate 225 gm Bottle 1 APPLIC TOPICAL ×2 (07:11→17:47)
[2022-12-28] MEDS: Menthol/Lanolin/Calamine/Znox 113 GM Tube 1 APPLIC TOPICAL ×2 (07:12→17:46)
[2022-12-28] MEDS: Capsaicin 0.025% 1 APPLIC Tube TOPICAL ×2 (07:16→20:21)
[2022-12-28] MEDS: Gabapentin 600 MG Tablet PO ×3 (08:07→17:46)
[2022-12-28] MEDS: Carvedilol 25 MG Tablet PO ×2 (08:07→17:46)
[2022-12-28] MEDS: Multivitamin (Healthy Eyes) Capsule 1 CAP PO (08:07)
[2022-12-28] MEDS: Lidocaine 5% Patch 1 PATCH TOPICAL (10:12)
[2022-12-28] MEDS: Ferrous Sulfate 325 MG Tablet PO (11:59)
[2022-12-28 14:00] VITALS: BP 153/80; PULSE 63; RESP 16; TEMP 36.5; O2SAT 91
[2022-12-28] MEDS: amLODIPine 10 MG Tablet PO (20:21)
--- NOTE | 2022-12-28 20:23 | NURSING ---
HS meds given at this time per patient request. Patient is a mod to help roll in the bed and a dependent to remove pants. Patient is able to slightly lift buttock off bed to assist staff.
[2022-12-29] MEDS: HYDROcodone Bitartrate/Apap 5/325 Tablet PO ×3 (03:00→22:58)
[2022-12-29] MEDS: Cholestyramine/Sucrose 4 GM/PACKET PO (05:33)
[2022-12-29] MEDS: Menthol/Lanolin/Calamine/Znox 113 GM Tube 1 APPLIC TOPICAL ×2 (05:33→17:52)
[2022-12-29] MEDS: Fluticasone 0.05% 1 SPRAY NASAL.SRY 2 SPRAY NASAL (05:34)
[2022-12-29] MEDS: BETHANECHOL CHLORIDE 25 MG TABLET PO ×3 (05:35→22:57)
[2022-12-29] MEDS: Escitalopram Oxalate 20 MG Tablet PO (05:35)
[2022-12-29] MEDS: Loratadine 10 MG Tablet PO (05:35)
[2022-12-29] MEDS: Famotidine 20 MG Tablet PO ×2 (05:35→17:52)
[2022-12-29] MEDS: Lisinopril 40 MG Tablet PO (05:35)
[2022-12-29] MEDS: Magnesium Chloride 64 MG Delay Rel.Tablet 128 MG PO (05:35)
[2022-12-29] MEDS: buPROPion 75 MG Tablet PO (05:36)
[2022-12-29] MEDS: cycloBENZAPRine HCl 5 MG TABLET PO ×2 (05:38→22:58)
[2022-12-29] MEDS: Capsaicin 0.025% 1 APPLIC Tube TOPICAL ×2 (05:39→22:59)
[2022-12-29] MEDS: Heparin Injection (Vial) 5,000 UNIT/ML VIAL 5000 UNIT SC ×3 (05:42→22:58)
[2022-12-29 08:05] LABS: Absolute Lymphocyte Count 1.53 X10^3/uL (0.83-4.51); Absolute Neutrophil Count 3.5 X10^3/uL (2.0-7.7); Basophil# 0.03 X10^3/uL; Basophil% 0.5 % (0-1); Eosinophil# 0.26 X10^3/uL; Hematocrit 30.9 % (40-54); Hemoglobin 10.1 g/dL (13.0-16.5); Lymphocyte # 1.53 X10^3/ul (0.83-4.51); Lymphocyte % 23.8 % (19-41); Mean Corp Hgb Conc 32.7 g/dL (32-36); Mean Corpuscular Hgb 31.8 pg (27.0-32.0); Mean Corpuscular Volume 97.2 fL (80-94); Mean Platelet Vol. 8.5 fl (6.2-12.0); Monocyte# 1.03 X10^3/uL; NRBC Flagged by Analyzer 0 % (0-5); Neutrophil # 3.52 X10^3/uL (2.7-7.7); Neutrophil % 54.8 % (47-70); Platelet Count 230 K/mm3 (150-450); RBC Distribution Width CV 13.4 % (11.6-14.6); RBC Distribution Width SD 48.4 fl (35.1-43.9); Red Blood Count 3.18 M/mm3 (4.6-6.2); White Blood Count 6.4 K/mm3 (4.4-11.0)
[2022-12-29] MEDS: Gabapentin 600 MG Tablet PO ×3 (08:20→17:55)
[2022-12-29] MEDS: Carvedilol 25 MG Tablet PO ×2 (08:20→17:51)
[2022-12-29] MEDS: Multivitamin (Healthy Eyes) Capsule 1 CAP PO (08:21)
[2022-12-29] MEDS: Lidocaine 5% Patch 1 PATCH TOPICAL (08:22)
[2022-12-29] MEDS: Ammonium Lactate 225 gm Bottle 1 APPLIC TOPICAL ×2 (08:22→22:57)
[2022-12-29 08:40] LABS: Anion Gap 10 (5-15); BUN 15 mg/dL (7-18); BUN/Creat Ratio 17.8 RATIO (10-20); Calcium,Total 10.3 mg/dL (8.5-10.1); Chloride 103 mmol/L (98-107); Creatinine, Serum 0.84 mg/dL (0.70-1.30); EST Glomerular Filtration Rate 97 mL/min (>60); Est Glom Filt Rate - Afr Amer 118 mL/min (>60); Estimated Creatinine Clearance 93.38 ml/min; Glucose 100 mg/dL (74-106); Potassium 4.4 mmol/L (3.5-5.1); Sodium Level 140 mmol/L (136-145)
[2022-12-29] MEDS: Ferrous Sulfate 325 MG Tablet PO (11:42)
[2022-12-29 14:00] VITALS: BP 136/72; PULSE 54; RESP 18; TEMP 36.5; O2SAT 92
[2022-12-29 22:50] VITALS: BP 134/77; PULSE 59; O2SAT 98
[2022-12-29] MEDS: amLODIPine 10 MG Tablet PO (22:57)
--- NOTE | 2022-12-29 23:00 | NURSING ---
O2 decreased to 2 lpm via nc as spO2 on 3 L at 98%. Denies any shortness of breath or chest pain. BiPAP turned on and O2 connected at 2 lpm. Reports using O2 at home bled into BiPAP.
[2022-12-30] MEDS: Cholestyramine/Sucrose 4 GM/PACKET PO (06:36)
[2022-12-30] MEDS: Famotidine 20 MG Tablet PO ×2 (06:37→17:19)
[2022-12-30] MEDS: Loratadine 10 MG Tablet PO (06:37)
[2022-12-30] MEDS: Magnesium Chloride 64 MG Delay Rel.Tablet 128 MG PO (06:37)
[2022-12-30] MEDS: Capsaicin 0.025% 1 APPLIC Tube TOPICAL ×2 (06:37→22:30)
[2022-12-30] MEDS: buPROPion 75 MG Tablet PO (06:38)
[2022-12-30] MEDS: Menthol/Lanolin/Calamine/Znox 113 GM Tube 1 APPLIC TOPICAL ×2 (06:38→17:20)
[2022-12-30] MEDS: Escitalopram Oxalate 20 MG Tablet PO (06:38)
[2022-12-30] MEDS: BETHANECHOL CHLORIDE 25 MG TABLET PO ×3 (06:38→22:28)
[2022-12-30] MEDS: HYDROcodone Bitartrate/Apap 5/325 Tablet PO ×4 (06:38→22:29)
[2022-12-30] MEDS: Lisinopril 40 MG Tablet PO (06:39)
[2022-12-30] MEDS: Heparin Injection (Vial) 5,000 UNIT/ML VIAL 5000 UNIT SC ×3 (06:41→22:28)
[2022-12-30 06:48] VITALS: BP 126/79; PULSE 59
[2022-12-30] MEDS: Gabapentin 600 MG Tablet PO ×3 (08:01→17:17)
[2022-12-30] MEDS: Carvedilol 25 MG Tablet PO ×2 (08:02→17:18)
[2022-12-30] MEDS: Multivitamin (Healthy Eyes) Capsule 1 CAP PO (08:02)
[2022-12-30] MEDS: Lidocaine 5% Patch 1 PATCH TOPICAL (09:23)
[2022-12-30] MEDS: Ammonium Lactate 225 gm Bottle 1 APPLIC TOPICAL ×2 (09:25→22:29)
[2022-12-30] MEDS: Ferrous Sulfate 325 MG Tablet PO (13:05)
[2022-12-30 14:00] VITALS: BP 127/70; PULSE 58; RESP 16; TEMP 36.1; O2SAT 90
[2022-12-30] MEDS: cycloBENZAPRine HCl 5 MG TABLET PO ×2 (17:27→22:28)
[2022-12-30 22:22] VITALS: BP 117/70; PULSE 58
[2022-12-30] MEDS: amLODIPine 10 MG Tablet PO (22:28)
[2022-12-30 22:30] VITALS: O2SAT 93
[2022-12-31] MEDS: Fluticasone 0.05% 1 SPRAY NASAL.SRY 2 SPRAY NASAL (06:13)
[2022-12-31] MEDS: Cholestyramine/Sucrose 4 GM/PACKET PO (06:13)
[2022-12-31] MEDS: Magnesium Chloride 64 MG Delay Rel.Tablet 128 MG PO (06:14)
[2022-12-31] MEDS: BETHANECHOL CHLORIDE 25 MG TABLET PO ×3 (06:14→21:28)
[2022-12-31] MEDS: Escitalopram Oxalate 20 MG Tablet PO (06:14)
[2022-12-31] MEDS: Lisinopril 40 MG Tablet PO (06:14)
[2022-12-31] MEDS: Capsaicin 0.025% 1 APPLIC Tube TOPICAL ×2 (06:15→21:29)
[2022-12-31] MEDS: buPROPion 75 MG Tablet PO (06:15)
[2022-12-31] MEDS: Heparin Injection (Vial) 5,000 UNIT/ML VIAL 5000 UNIT SC ×3 (06:15→21:22)
[2022-12-31] MEDS: Famotidine 20 MG Tablet PO ×2 (06:15→17:55)
[2022-12-31] MEDS: Loratadine 10 MG Tablet PO (06:15)
[2022-12-31] MEDS: cycloBENZAPRine HCl 5 MG TABLET PO ×3 (06:17→22:11)
[2022-12-31] MEDS: Menthol/Lanolin/Calamine/Znox 113 GM Tube 1 APPLIC TOPICAL ×2 (06:18→17:56)
[2022-12-31] MEDS: Carvedilol 25 MG Tablet PO ×2 (07:55→17:55)
[2022-12-31] MEDS: Gabapentin 600 MG Tablet PO ×3 (07:55→17:55)
[2022-12-31] MEDS: Multivitamin (Healthy Eyes) Capsule 1 CAP PO (07:55)
[2022-12-31] MEDS: HYDROcodone Bitartrate/Apap 5/325 Tablet PO ×3 (08:40→22:11)
[2022-12-31] MEDS: Lidocaine 5% Patch 1 PATCH TOPICAL (10:19)
[2022-12-31] MEDS: Ammonium Lactate 225 gm Bottle 1 APPLIC TOPICAL ×2 (10:22→21:29)
[2022-12-31] MEDS: Ferrous Sulfate 325 MG Tablet PO (12:31)
[2022-12-31 14:00] VITALS: BP 126/74; PULSE 58; RESP 16; TEMP 36; O2SAT 93
[2022-12-31] MEDS: amLODIPine 10 MG Tablet PO (21:28)
[2023-01-01] MEDS: Fluticasone 0.05% 1 SPRAY NASAL.SRY 2 SPRAY NASAL (06:09)
[2023-01-01] MEDS: Cholestyramine/Sucrose 4 GM/PACKET PO (06:10)
[2023-01-01] MEDS: Famotidine 20 MG Tablet PO ×2 (06:11→18:05)
[2023-01-01] MEDS: Lisinopril 40 MG Tablet PO (06:11)
[2023-01-01] MEDS: buPROPion 75 MG Tablet PO (06:11)
[2023-01-01] MEDS: Magnesium Chloride 64 MG Delay Rel.Tablet 128 MG PO (06:11)
[2023-01-01] MEDS: Loratadine 10 MG Tablet PO (06:11)
[2023-01-01] MEDS: Escitalopram Oxalate 20 MG Tablet PO (06:11)
[2023-01-01] MEDS: HYDROcodone Bitartrate/Apap 5/325 Tablet PO ×4 (06:12→22:17)
[2023-01-01] MEDS: BETHANECHOL CHLORIDE 25 MG TABLET PO ×3 (06:12→20:53)
[2023-01-01] MEDS: Heparin Injection (Vial) 5,000 UNIT/ML VIAL 5000 UNIT SC ×3 (06:13→20:52)
[2023-01-01] MEDS: Menthol/Lanolin/Calamine/Znox 113 GM Tube 1 APPLIC TOPICAL ×2 (06:16→18:05)
[2023-01-01] MEDS: Capsaicin 0.025% 1 APPLIC Tube TOPICAL ×2 (06:18→20:52)
[2023-01-01 07:49] VITALS: O2SAT 93
[2023-01-01] MEDS: Multivitamin (Healthy Eyes) Capsule 1 CAP PO (08:10)
[2023-01-01] MEDS: Carvedilol 25 MG Tablet PO ×2 (08:10→18:05)
[2023-01-01] MEDS: Gabapentin 600 MG Tablet PO ×3 (08:10→18:05)
[2023-01-01] MEDS: Lidocaine 5% Patch 1 PATCH TOPICAL (08:11)
[2023-01-01] MEDS: Ammonium Lactate 225 gm Bottle 1 APPLIC TOPICAL ×2 (08:11→20:53)
[2023-01-01] MEDS: cycloBENZAPRine HCl 5 MG TABLET PO ×2 (10:32→20:15)
[2023-01-01] MEDS: Ferrous Sulfate 325 MG Tablet PO (12:45)
[2023-01-01 13:36] VITALS: BP 104/53; PULSE 55; RESP 16; TEMP 36.2; O2SAT 93
[2023-01-01 14:11] VITALS: BMI 42.8
[2023-01-01] MEDS: amLODIPine 10 MG Tablet PO (20:53)
--- NOTE | 2023-01-01 23:02 | NURSING ---
Patient did stand pivot from bed to w/c and from w/c to toilet with 2 staff present but he was a min to mod assist for activity. Patient did well and got to the side of the bed by himself.
[2023-01-02 07:54] VITALS: O2SAT 94
[2023-01-02 07:55] VITALS: BP 132/74; PULSE 61
[2023-01-02] MEDS: Gabapentin 600 MG Tablet PO ×3 (07:56→17:59)
[2023-01-02] MEDS: Multivitamin (Healthy Eyes) Capsule 1 CAP PO (07:57)
[2023-01-02] MEDS: Cholestyramine/Sucrose 4 GM/PACKET PO (07:57)
[2023-01-02] MEDS: Menthol/Lanolin/Calamine/Znox 113 GM Tube 1 APPLIC TOPICAL ×2 (07:57→17:59)
[2023-01-02] MEDS: BETHANECHOL CHLORIDE 25 MG TABLET PO ×3 (07:57→21:24)
[2023-01-02] MEDS: Carvedilol 25 MG Tablet PO ×2 (07:57→17:59)
[2023-01-02] MEDS: Famotidine 20 MG Tablet PO ×2 (07:58→17:59)
[2023-01-02] MEDS: Magnesium Chloride 64 MG Delay Rel.Tablet 128 MG PO (07:58)
[2023-01-02] MEDS: Loratadine 10 MG Tablet PO (07:58)
[2023-01-02] MEDS: Escitalopram Oxalate 20 MG Tablet PO (07:58)
[2023-01-02] MEDS: Lisinopril 40 MG Tablet PO (07:58)
[2023-01-02] MEDS: buPROPion 75 MG Tablet PO (07:59)
[2023-01-02] MEDS: Fluticasone 0.05% 1 SPRAY NASAL.SRY 2 SPRAY NASAL (07:59)
[2023-01-02] MEDS: Heparin Injection (Vial) 5,000 UNIT/ML VIAL 5000 UNIT SC ×3 (08:00→21:26)
[2023-01-02] MEDS: HYDROcodone Bitartrate/Apap 5/325 Tablet PO ×3 (08:43→21:23)
[2023-01-02] MEDS: Capsaicin 0.025% 1 APPLIC Tube TOPICAL ×2 (08:49→21:26)
[2023-01-02] MEDS: cycloBENZAPRine HCl 5 MG TABLET PO ×2 (09:57→18:03)
[2023-01-02] MEDS: Lidocaine 5% Patch 1 PATCH TOPICAL (09:57)
[2023-01-02] MEDS: Ammonium Lactate 225 gm Bottle 1 APPLIC TOPICAL ×2 (09:58→21:25)
[2023-01-02] MEDS: Ferrous Sulfate 325 MG Tablet PO (11:08)
[2023-01-02 14:00] VITALS: BP 123/69; PULSE 69; RESP 17; TEMP 36.6
[2023-01-02 14:05] VITALS: BP 123/69; PULSE 59; RESP 17; TEMP 36.6; O2SAT 92
--- NOTE | 2023-01-02 18:39 | NURSING ---
Palliative in to consult
[2023-01-02] MEDS: amLODIPine 10 MG Tablet PO (21:25)
[2023-01-03] MEDS: HYDROcodone Bitartrate/Apap 5/325 Tablet PO ×3 (02:06→19:42)
[2023-01-03] MEDS: Escitalopram Oxalate 20 MG Tablet PO (05:23)
[2023-01-03] MEDS: Loratadine 10 MG Tablet PO (05:23)
[2023-01-03] MEDS: Magnesium Chloride 64 MG Delay Rel.Tablet 128 MG PO (05:23)
[2023-01-03] MEDS: BETHANECHOL CHLORIDE 25 MG TABLET PO ×3 (05:23→21:40)
[2023-01-03] MEDS: Capsaicin 0.025% 1 APPLIC Tube TOPICAL ×2 (05:24→21:40)
[2023-01-03] MEDS: Lisinopril 40 MG Tablet PO (05:24)
[2023-01-03] MEDS: buPROPion 75 MG Tablet PO (05:24)
[2023-01-03] MEDS: Fluticasone 0.05% 1 SPRAY NASAL.SRY 2 SPRAY NASAL (05:24)
[2023-01-03] MEDS: Famotidine 20 MG Tablet PO ×2 (05:24→17:31)
[2023-01-03] MEDS: Heparin Injection (Vial) 5,000 UNIT/ML VIAL 5000 UNIT SC ×3 (05:29→21:40)
[2023-01-03] MEDS: cycloBENZAPRine HCl 5 MG TABLET PO ×2 (05:30→14:47)
[2023-01-03] MEDS: Menthol/Lanolin/Calamine/Znox 113 GM Tube 1 APPLIC TOPICAL ×2 (05:32→21:58)
[2023-01-03 06:55] VITALS: O2SAT 95
[2023-01-03] MEDS: Carvedilol 25 MG Tablet PO ×2 (07:56→17:31)
[2023-01-03] MEDS: Multivitamin (Healthy Eyes) Capsule 1 CAP PO (07:56)
[2023-01-03] MEDS: Cholestyramine/Sucrose 4 GM/PACKET PO (07:56)
[2023-01-03] MEDS: Gabapentin 600 MG Tablet PO ×3 (08:04→17:31)
[2023-01-03 08:06] VITALS: BP 130/67; PULSE 58
[2023-01-03] MEDS: Lidocaine 5% Patch 1 PATCH TOPICAL (09:47)
[2023-01-03] MEDS: Ammonium Lactate 225 gm Bottle 1 APPLIC TOPICAL ×2 (09:49→21:39)
[2023-01-03 10:30] VITALS: PULSE 54; RESP 18; O2SAT 94
[2023-01-03] MEDS: Ferrous Sulfate 325 MG Tablet PO (11:35)
[2023-01-03 14:00] VITALS: BP 122/66; PULSE 60; RESP 18; TEMP 36.2; O2SAT 90
--- NOTE | 2023-01-03 14:10 | CHAPLAIN ---
Type of Pastoral Visit ___ Initial Visit _x__ Follow-up Visit ___ On-call Visit ___ General Patient Visit ___ Spiritual Assessment ___ Family Conference ___ Bereavement ___ Rapid Response ___ Code Blue ___ Other (describe below) Pastoral Care Referral From _x__ Patient ___ Family ___ Nurse ___ Physician ___ Computer Programming Supervisor ___ Human Resources Officer ___ Other (describe below) Sacrament/Intervention _x__ Active listening ___ Anointing ___ Spiritism ___ Bereavement ___ Communion ___ Cindi exploration ___ ___ Life review ___ Prayer ___ Reconciliation ___ Sacrament of Sick ___ Supportive presence ___ Wedding ___ Other (describe below) Pastoral Comments follow up to patient; pt gives updates on progress and how he is preparing himself to go home; pt states that people are praying for me; casual conversation, supportive presence
[2023-01-03] MEDS: amLODIPine 10 MG Tablet PO (21:42)
[2023-01-04] MEDS: Magnesium Chloride 64 MG Delay Rel.Tablet 128 MG PO (06:29)
[2023-01-04] MEDS: buPROPion 75 MG Tablet PO (06:29)
[2023-01-04] MEDS: BETHANECHOL CHLORIDE 25 MG TABLET PO ×3 (06:30→21:09)
[2023-01-04] MEDS: Famotidine 20 MG Tablet PO ×2 (06:30→17:47)
[2023-01-04] MEDS: Lisinopril 40 MG Tablet PO (06:30)
[2023-01-04] MEDS: Loratadine 10 MG Tablet PO (06:30)
[2023-01-04] MEDS: Escitalopram Oxalate 20 MG Tablet PO (06:30)
[2023-01-04] MEDS: HYDROcodone Bitartrate/Apap 5/325 Tablet PO ×4 (06:30→21:56)
[2023-01-04] MEDS: Fluticasone 0.05% 1 SPRAY NASAL.SRY 2 SPRAY NASAL (06:31)
[2023-01-04] MEDS: Heparin Injection (Vial) 5,000 UNIT/ML VIAL 5000 UNIT SC ×3 (06:32→21:10)
[2023-01-04] MEDS: Cholestyramine/Sucrose 4 GM/PACKET PO (06:33)
[2023-01-04 07:40] VITALS: O2SAT 94
[2023-01-04] MEDS: Capsaicin 0.025% 1 APPLIC Tube TOPICAL ×2 (08:09→21:21)
[2023-01-04] MEDS: Carvedilol 25 MG Tablet PO ×2 (08:09→17:47)
[2023-01-04] MEDS: Multivitamin (Healthy Eyes) Capsule 1 CAP PO (08:09)
[2023-01-04] MEDS: Menthol/Lanolin/Calamine/Znox 113 GM Tube 1 APPLIC TOPICAL ×2 (08:11→17:47)
[2023-01-04] MEDS: Gabapentin 600 MG Tablet PO ×3 (08:11→17:47)
[2023-01-04] MEDS: Lidocaine 5% Patch 1 PATCH TOPICAL (08:21)
[2023-01-04] MEDS: Ammonium Lactate 225 gm Bottle 1 APPLIC TOPICAL ×2 (08:21→21:19)
[2023-01-04] MEDS: cycloBENZAPRine HCl 5 MG TABLET PO ×2 (09:14→21:09)
[2023-01-04] MEDS: Acetaminophen 325 MG Tablet 650 MG PO (09:14)
[2023-01-04] MEDS: Ferrous Sulfate 325 MG Tablet PO (12:33)
[2023-01-04 14:00] VITALS: BP 139/81; PULSE 60; RESP 16; TEMP 36.4; O2SAT 93
[2023-01-04] MEDS: amLODIPine 10 MG Tablet PO (21:11)
[2023-01-04 21:30] VITALS: O2SAT 95
[2023-01-05] MEDS: HYDROcodone Bitartrate/Apap 5/325 Tablet PO ×4 (03:41→22:24)
[2023-01-05] MEDS: Fluticasone 0.05% 1 SPRAY NASAL.SRY 2 SPRAY NASAL (05:55)
[2023-01-05] MEDS: buPROPion 75 MG Tablet PO (05:59)
[2023-01-05] MEDS: Heparin Injection (Vial) 5,000 UNIT/ML VIAL 5000 UNIT SC ×3 (05:59→22:09)
[2023-01-05] MEDS: Magnesium Chloride 64 MG Delay Rel.Tablet 128 MG PO (05:59)
[2023-01-05] MEDS: Lisinopril 40 MG Tablet PO (05:59)
[2023-01-05] MEDS: Famotidine 20 MG Tablet PO ×2 (06:00→17:40)
[2023-01-05] MEDS: Escitalopram Oxalate 20 MG Tablet PO (06:00)
[2023-01-05] MEDS: Loratadine 10 MG Tablet PO (06:00)
[2023-01-05] MEDS: Cholestyramine/Sucrose 4 GM/PACKET PO (06:00)
[2023-01-05] MEDS: BETHANECHOL CHLORIDE 25 MG TABLET PO ×3 (06:00→22:08)
[2023-01-05] MEDS: Capsaicin 0.025% 1 APPLIC Tube TOPICAL ×2 (06:04→22:09)
[2023-01-05] MEDS: cycloBENZAPRine HCl 5 MG TABLET PO ×2 (06:06→22:31)
[2023-01-05] MEDS: Menthol/Lanolin/Calamine/Znox 113 GM Tube 1 APPLIC TOPICAL ×2 (06:08→22:12)
[2023-01-05 07:33] LABS: Absolute Neutrophil Count 2.7 X10^3/uL (2.0-7.7); Basophil# 0.03 X10^3/uL; Basophil% 0.6 % (0-1); Eosinophil# 0.26 X10^3/uL; Eosinophils% 4.8 % (0-5); Hematocrit 32.7 % (40-54); Hemoglobin 10.4 g/dL (13.0-16.5); Lymphocyte % 27.5 % (19-41); Mean Corp Hgb Conc 31.8 g/dL (32-36); Mean Corpuscular Hgb 31.5 pg (27.0-32.0); Mean Corpuscular Volume 99.1 fL (80-94); Mean Platelet Vol. 8.5 fl (6.2-12.0); Monocyte# 0.91 X10^3/uL; Monocyte% 16.7 % (0-10); NRBC Flagged by Analyzer 0 % (0-5); Neutrophil # 2.73 X10^3/uL (2.7-7.7); Platelet Count 213 K/mm3 (150-450); RBC Distribution Width CV 13.7 % (11.6-14.6); RBC Distribution Width SD 49.9 fl (35.1-43.9); White Blood Count 5.5 K/mm3 (4.4-11.0)
[2023-01-05 07:51] LABS: Anion Gap 9 (5-15); BUN 15 mg/dL (7-18); BUN/Creat Ratio 19.6 RATIO (10-20); Calcium,Total 10.2 mg/dL (8.5-10.1); Chloride 105 mmol/L (98-107); Creatinine, Serum 0.76 mg/dL (0.70-1.30); EST Glomerular Filtration Rate 109 mL/min (>60); Est Glom Filt Rate - Afr Amer 131 mL/min (>60); Estimated Creatinine Clearance 103.21 ml/min; Glucose 95 mg/dL (74-106); Potassium 3.8 mmol/L (3.5-5.1); Sodium Level 141 mmol/L (136-145)
[2023-01-05] MEDS: Carvedilol 25 MG Tablet PO ×2 (08:20→17:40)
[2023-01-05] MEDS: Lidocaine 5% Patch 1 PATCH TOPICAL (08:21)
[2023-01-05] MEDS: Multivitamin (Healthy Eyes) Capsule 1 CAP PO (08:21)
[2023-01-05] MEDS: Gabapentin 600 MG Tablet PO ×3 (08:25→17:43)
[2023-01-05] MEDS: Ammonium Lactate 225 gm Bottle 1 APPLIC TOPICAL ×2 (11:13→22:11)
[2023-01-05] MEDS: Ferrous Sulfate 325 MG Tablet PO (11:14)
[2023-01-05 11:15] VITALS: PULSE 65; RESP 18; O2SAT 94
[2023-01-05 14:00] VITALS: BP 145/80; PULSE 85; RESP 16; TEMP 36.7; O2SAT 94
[2023-01-05 17:39] VITALS: PULSE 66
[2023-01-05] MEDS: amLODIPine 10 MG Tablet PO (22:10)
[2023-01-06] MEDS: BETHANECHOL CHLORIDE 25 MG TABLET PO ×3 (06:40→22:18)
[2023-01-06] MEDS: Fluticasone 0.05% 1 SPRAY NASAL.SRY 2 SPRAY NASAL (06:40)
[2023-01-06] MEDS: Loratadine 10 MG Tablet PO (06:40)
[2023-01-06] MEDS: Menthol/Lanolin/Calamine/Znox 113 GM Tube 1 APPLIC TOPICAL ×2 (06:40→17:49)
[2023-01-06] MEDS: Heparin Injection (Vial) 5,000 UNIT/ML VIAL 5000 UNIT SC ×3 (06:41→22:17)
[2023-01-06] MEDS: Escitalopram Oxalate 20 MG Tablet PO (06:41)
[2023-01-06] MEDS: Lisinopril 40 MG Tablet PO (06:41)
[2023-01-06] MEDS: Magnesium Chloride 64 MG Delay Rel.Tablet 128 MG PO (06:41)
[2023-01-06] MEDS: buPROPion 75 MG Tablet PO (06:42)
[2023-01-06] MEDS: Capsaicin 0.025% 1 APPLIC Tube TOPICAL (06:42)
[2023-01-06] MEDS: Famotidine 20 MG Tablet PO ×2 (06:42→17:49)
[2023-01-06] MEDS: HYDROcodone Bitartrate/Apap 5/325 Tablet PO ×3 (06:49→20:01)
[2023-01-06 06:58] VITALS: O2SAT 90
[2023-01-06] MEDS: Gabapentin 600 MG Tablet PO ×3 (08:07→17:47)
[2023-01-06] MEDS: Carvedilol 25 MG Tablet PO ×2 (08:10→17:48)
[2023-01-06] MEDS: Multivitamin (Healthy Eyes) Capsule 1 CAP PO (08:10)
[2023-01-06] MEDS: Lidocaine 5% Patch 1 PATCH TOPICAL (08:11)
[2023-01-06 08:16] VITALS: BP 152/71; PULSE 67
[2023-01-06] MEDS: Cholestyramine/Sucrose 4 GM/PACKET PO (10:35)
[2023-01-06] MEDS: Ammonium Lactate 225 gm Bottle 1 APPLIC TOPICAL ×2 (10:42→22:21)
[2023-01-06] MEDS: Ferrous Sulfate 325 MG Tablet PO (12:00)
[2023-01-06 14:00] VITALS: BP 120/59; PULSE 54; RESP 16; TEMP 36.1; O2SAT 93
[2023-01-06 17:47] VITALS: PULSE 62
[2023-01-06] MEDS: cycloBENZAPRine HCl 5 MG TABLET PO (22:17)
[2023-01-06] MEDS: amLODIPine 10 MG Tablet PO (22:21)
[2023-01-06 22:32] VITALS: PULSE 60; RESP 18
[2023-01-07] MEDS: buPROPion 75 MG Tablet PO (06:23)
[2023-01-07] MEDS: Heparin Injection (Vial) 5,000 UNIT/ML VIAL 5000 UNIT SC ×3 (06:23→20:41)
[2023-01-07] MEDS: Escitalopram Oxalate 20 MG Tablet PO (06:23)
[2023-01-07] MEDS: Magnesium Chloride 64 MG Delay Rel.Tablet 128 MG PO (06:23)
[2023-01-07] MEDS: BETHANECHOL CHLORIDE 25 MG TABLET PO ×3 (06:23→20:38)
[2023-01-07] MEDS: Famotidine 20 MG Tablet PO ×2 (06:23→17:14)
[2023-01-07] MEDS: Lisinopril 40 MG Tablet PO (06:23)
[2023-01-07] MEDS: Loratadine 10 MG Tablet PO (06:23)
[2023-01-07] MEDS: Fluticasone 0.05% 1 SPRAY NASAL.SRY 2 SPRAY NASAL (06:24)
[2023-01-07] MEDS: Menthol/Lanolin/Calamine/Znox 113 GM Tube 1 APPLIC TOPICAL ×2 (06:25→17:14)
[2023-01-07] MEDS: HYDROcodone Bitartrate/Apap 5/325 Tablet PO ×4 (06:28→20:44)
[2023-01-07] MEDS: Lidocaine 5% Patch 1 PATCH TOPICAL (08:37)
[2023-01-07] MEDS: Gabapentin 600 MG Tablet PO ×3 (08:37→17:14)
[2023-01-07] MEDS: Carvedilol 25 MG Tablet PO ×2 (08:37→16:32)
[2023-01-07] MEDS: Multivitamin (Healthy Eyes) Capsule 1 CAP PO (08:38)
[2023-01-07 08:48] VITALS: BP 121/66; PULSE 66
[2023-01-07 10:00] VITALS: PULSE 66; RESP 18
[2023-01-07] MEDS: Cholestyramine/Sucrose 4 GM/PACKET PO (11:37)
[2023-01-07] MEDS: Ammonium Lactate 225 gm Bottle 1 APPLIC TOPICAL ×2 (11:45→20:49)
[2023-01-07] MEDS: Ferrous Sulfate 325 MG Tablet PO (11:45)
--- NOTE | 2023-01-07 12:05 | CPS ---
Patient is currently off Oxygen, nasal cannula is on at bedside at 2lpm if needed, 2lpm bled into patient's VPAP. Humidity and 14 feet of tubing added.
[2023-01-07 14:00] VITALS: BP 127/64; PULSE 62; RESP 16; TEMP 36.3; O2SAT 94
--- NOTE | 2023-01-07 16:03 | CASEMGMT ---
Social Work Notice of non coverage issued by insurance with last covered day 01/10/23 and discharge 01/11/23. SW met with pt who states he feels he is ready to discharge home alone at that time. Pt is agreeable to home health PT/OT. SW provided pt with a list of Home Health providers including quality and resource use datea and consistent with the patient's preferred geographic region, medical needs and insurance network. Pt will review list and notify SW tomorrow of choices of preferred provider. SW spoke with pt regarding DME. Pt states he has a list of DME that he will now order on [facility]. Pt requesting regular size, not bariatric, wheelchair and BSC. SW will arrange for DME covered by insurance, pt to arrange for private pay DME. [facility] SW will follow up with therapy to determine best mode of transportation. Plan: Home alone with home health PT/OT TEJAS Crespo
[2023-01-07] MEDS: cycloBENZAPRine HCl 5 MG TABLET PO (16:33)
--- NOTE | 2023-01-07 19:11 | PCM.DC.SUM ---
Providers Date of Admission: 12/14/22 Primary Care Physician: Dr. 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: Status: Acute Code(s): M51.04 - Intervertebral disc disorders with myelopathy, thoracic region (5) Compression fracture: Status: Acute (6) Hypertension: Status: Chronic Code(s): I10 - Essential (primary) hypertension (7) Obstructive sleep apnea: Status: Acute Code(s): G47.33 - Obstructive sleep apnea (adult) (pediatric) (8) Psoriasis: Status: Acute Code(s): L40.9 - Psoriasis, unspecified (9) Depression: Status: Acute Code(s): F32.A - Depression, unspecified Plan 67 year old male with below past medical history hospitalized for T7 compression fracture, thoracic spinal stenosis with myelopathy, underwent surgical decompression 11/09/2022, admitted to [facility] acute rehab 11/14/2022, admitted to TCU with debility, here for rehabilitation, strengthening, prior to discharge home alone. Debility - PT/OT. Pain - Tylenol 650mg q4h prn pain (1-3), [place] 5/325mg 1 tablet q4h prn pain (4-10), Lidoderm 1 patch td daily, Capsaicin topical bid. Bowel - Cholestyramine 4gm daily, Loperamide 2mg daily. Adult immunization - Administer pneumonia vaccine, covid19 vaccine, flu vaccine as appropriate. DVT prophylaxis - Heparin 5000 units q8h. Hypertension - Coreg 25mg bid, Lisinopril 40mg daily, Amlodipine 10mg daily. Dry skin - Ammonium Lactate topical twice daily. Urinary retention - Bethanechol 25mg tid. 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 Muscle spasm - Flexeril 5mg tid prn. GERD - Famotidine 20mg bid. Iron deficiency anemia - Ferrous sulfate 325mg daily. Allergic rhinitis - Flonase 2 sprays nasal daily, Loratadine 10mg daily. Neuropathic pain - Gabapentin 600mg tidcm. Hypomagnesemia - Magnesium chloride 128mg daily. Macular degeneration - Healthy Eyes 1 capsule daily. Medications at Discharge Home Medications amlodipine 10 mg tablet 10 mg PO QHS Blood pressure 10/14/19 escitalopram oxalate 20 mg tablet 20 mg PO DAILY Check with primary doctor 10/14/19 bupropion HCl 75 mg tablet 75 mg PO DAILY Depression 09/18/22 carvedilol 25 mg tablet 25 mg PO BID Check with primary doctor 09/18/22 acetaminophen 325 mg tablet 650 mg PO Q4H PRN PRN mild pain 1-3 #0 tabs 01/07/23 bethanechol chloride 25 mg tablet 25 mg PO TID 30 days #90 tabs 01/07/23 cholestyramine (with sugar) 4 gram powder for susp in a packet 4 g PO DAILY@1000 30 days #30 ea 01/07/23 cyclobenzaprine 5 mg tablet 5 mg PO TID PRN PRN Muscle Spasm 30 days #90 tabs 01/07/23 famotidine 20 mg tablet 20 mg PO BID 30 days #60 tabs 01/07/23 ferrous sulfate 325 mg (65 mg iron) tablet (FeroSul) 325 mg PO DAILY@1200 30 days #30 tabs 01/07/23 fluticasone propionate 50 mcg/actuation nasal spray,suspension 2 spray NASAL DAILY 30 days #16 grams 01/07/23 gabapentin 600 mg tablet 600 mg PO TIDCM 30 days #90 tabs 01/07/23 hydrocodone-acetaminophen 5-325mg 5mg-325mg 1 tab PO Q4H PRN PRN Moderate to severe pain 4-10 7 days #42 tabs 01/07/23 lidocaine 5 % topical patch 1 patch topical 0800 30 days #30 ea 01/07/23 lisinopril 40 mg tablet 40 mg PO DAILY 30 days #30 tabs 01/07/23 magnesium chloride 64 mg (magnesium chloride) tablet,delayed release (Mag 64) 128 mg PO DAILY 30 days #60 tabs 01/07/23 vit A 300 mcg-C 200 mg-E 27 mg-lutein 2 mg and minerals tablet (Healthy Eyes) 1 cap PO DAILYCM #0 tabs 01/07/23 Hospital Course Operations - (See below.) Procedures None Summary of Care Provided Minutes Spent on Discharge: 35 Hospital Course: 67 year old male with below past medical history hospitalized for T7 compression fracture, thoracic spinal stenosis with myelopathy, underwent surgical decompression 11/09/2022, admitted to [facility] acute rehab 11/14/2022, admitted to TCU with debility, here for rehabilitation, strengthening, prior to discharge home alone. Discharge home alone 01/11/2023, Home Health Care PT/OT. Physical Exam Const alert General Appearance: cooperative HEENT normocephalic Eyes PERRL and EOMs intact bilaterally Neck supple, no JVD and no carotid bruits Resp normal respiratory effort, normal air movement and clear to auscultation bilaterally Cardio regular rate and regular rhythm GI normal to inspection, nondistended, normoactive bowel sounds, non-tender and non-distended Extremity normal capillary refill General Extremity: Negative for edema Skin no rashes or lesions noted General Skin Exam: no breakdown Psych affect normal Appearance: appropriate Weight / BMI Weight Weight: 139.344 kg Body Mass Index (BMI) 42.8 ABG / Lab / Microbiology Data Result Diagrams: 01/05/23 06:10 01/05/23 06:10 Microbiology: Microbiology 12/18/22 08:25 Nasal Secretion SARS-CoV-2 Antigen (Rapid) - Final 12/17/22 11:40 Nasal Secretion SARS-CoV-2 Antigen (Rapid) - Final 12/14/22 23:50 Nasal Secretion SARS-CoV-2 Antigen (Rapid) - Final D/C Instructions Discharge Diet: No restrictions Discharge Activity: Return to Normal Activity, May Shower and Use Walker Weight Bearing Status: Weight bearing as tolerated Call your doctor if you observe: Fever of 101 or Higher, Inability to urinate, Inability to have a bowel movement, Shortness of breath, Dizziness, Fainting spells, Swelling in the ankles, Chest pain and Uncontrolled pain Additional Instructions: Discharge home alone 01/11/2023, Home Health Care PT/OT. Please Follow Up With: Mary Ann Ballard MD When: As scheduled. Meaningful Use Info Meaningful Use Diagnoses (Choose all that apply): None applicable Discharge Plan Admission Admit Date/Time: 12/14/22 21:07 Primary Reason for Your Visit: Debility. Attending Provider: Magdy Camp Chi Primary Care Provider: Arleen Hwang Instructions Additional Instructions / Restrictions: Discharge home alone 01/11/2023, Home Health Care PT/OT. Discharge Orders/Prescriptions Prescriptions: New acetaminophen 325 mg Tablet 650 mg PO Q4H PRN PRN (Reason: mild pain 1-3) Qty: 0 0RF gabapentin 600 mg Tablet 600 mg PO TIDCM 30 Days Qty: 90 0RF hydrocodone-acetaminophen 5-325 mg Tablet 1 tab PO Q4H PRN PRN (Reason: Moderate to severe pain 4-10) 7 Days Qty: 42 0RF bethanechol chloride 25 mg Tablet 25 mg PO TID 30 Days Qty: 90 0RF famotidine 20 mg Tablet 20 mg PO BID 30 Days Qty: 60 0RF ferrous sulfate [FeroSul] 325 mg (65 mg iron) Tablet 325 mg PO DAILY@1200 30 Days Qty: 30 0RF fluticasone propionate 50 mcg/actuation [place],Suspension 2 spray NASAL DAILY 30 Days Qty: 16 0RF cyclobenzaprine 5 mg Tablet 5 mg PO TID PRN PRN (Reason: Muscle Spasm) 30 Days Qty: 90 0RF cholestyramine (with sugar) 4 gram Powder In Packet 4 g PO DAILY@1000 30 Days Qty: 30 0RF lidocaine 5 % Adhesive Patch,Medicated 1 patch topical 0800 30 Days Qty: 30 0RF lisinopril 40 mg Tablet 40 mg PO DAILY 30 Days Qty: 30 0RF Healthy Eyes 300 mcg-200 mg-27 mg-2 mg Tablet 1 cap PO DAILYCM Qty: 0 0RF Mag 64 64 mg Tablet,Delayed Release (Dr/Ec) 128 mg PO DAILY 30 Days Qty: 60 0RF Continued amlodipine 10 MG tablet 10 mg PO QHS escitalopram oxalate 20 MG tablet 20 mg PO DAILY carvedilol 25 mg tablet 25 mg PO BID Label Comments: TAKE 1 TABLET BY MOUTH TWICE A DAY WITH MEALS bupropion HCl 75 mg tablet 75 mg PO DAILY Label Comments: START WITH TAKING 1 TABLET DAILY AND INCREASE TO 1 TABLET TWICE DAILY IF TOLERATED Discontinued colestipol 1 GM tablet 1 gm PO QHS vit C,U-Xs-enwsl-lutein-zeaxan 1 EACH capsule 1 cap PO BID losartan 100 mg tablet 100 mg PO DAILY Label Comments: TAKE 1 TABLET BY MOUTH EVERY DAY Xarelto 15 mg tablet 15 mg PO BID Qty: 38 0RF hydrocodone-acetaminophen 5-325 mg tablet 2 ea PO Q4H PRN PRN (Reason: Moderate to severe pain) Referrals / Follow Up: Arleen Hwang MD [Primary Care Provider] - 01/14/23 3:40 pm Disposition Disposition (needs filled in before D/C Order can be placed): Home Health Service
[2023-01-07] MEDS: amLODIPine 10 MG Tablet PO (20:39)
[2023-01-07] MEDS: Capsaicin 0.025% 1 APPLIC Tube TOPICAL (20:40)
[2023-01-08] MEDS: cycloBENZAPRine HCl 5 MG TABLET PO ×3 (00:33→22:53)
[2023-01-08] MEDS: Fluticasone 0.05% 1 SPRAY NASAL.SRY 2 SPRAY NASAL (05:58)
[2023-01-08] MEDS: Magnesium Chloride 64 MG Delay Rel.Tablet 128 MG PO (05:59)
[2023-01-08] MEDS: HYDROcodone Bitartrate/Apap 5/325 Tablet PO ×3 (05:59→19:52)
[2023-01-08] MEDS: Loratadine 10 MG Tablet PO (06:00)
[2023-01-08] MEDS: BETHANECHOL CHLORIDE 25 MG TABLET PO ×3 (06:00→19:53)
[2023-01-08] MEDS: buPROPion 75 MG Tablet PO (06:00)
[2023-01-08] MEDS: Famotidine 20 MG Tablet PO ×2 (06:00→17:42)
[2023-01-08] MEDS: Lisinopril 40 MG Tablet PO (06:00)
[2023-01-08] MEDS: Escitalopram Oxalate 20 MG Tablet PO (06:00)
[2023-01-08] MEDS: Heparin Injection (Vial) 5,000 UNIT/ML VIAL 5000 UNIT SC ×3 (06:01→19:54)
[2023-01-08] MEDS: Capsaicin 0.025% 1 APPLIC Tube TOPICAL ×2 (08:44→20:04)
[2023-01-08] MEDS: Gabapentin 600 MG Tablet PO ×3 (08:44→17:41)
[2023-01-08] MEDS: Multivitamin (Healthy Eyes) Capsule 1 CAP PO (08:45)
[2023-01-08] MEDS: Menthol/Lanolin/Calamine/Znox 113 GM Tube 1 APPLIC TOPICAL ×2 (08:45→17:42)
[2023-01-08] MEDS: Lidocaine 5% Patch 1 PATCH TOPICAL (08:45)
[2023-01-08] MEDS: Carvedilol 25 MG Tablet PO ×2 (08:46→17:42)
[2023-01-08] MEDS: Ammonium Lactate 225 gm Bottle 1 APPLIC TOPICAL ×2 (08:51→20:03)
--- NOTE | 2023-01-08 08:54 | CASEMGMT ---
Addendum entered by Norma Pedro 01/11/23 10:15: EBONIE spoke with Yamile at [email or web address] about the bed rail. 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 EBONIE updated pt. Addendum entered by Norma Pedro 01/10/23 15:22: Received secure email from [facility] Liaison stating [facility] is out of elevating leg rests for w/c, drop arm BSC and do not carry bed rails for regular mattresses; however, [facility] can provide standard leg rests, standard BSC and have the items shipped to the pt once in stock. EBONIE spoke with pt to follow up. Pt stated he is okay with having the standard items for now, and can purchase a bed rail. SW offered to contact [email or web address] for the bed rail, since they carry them. Pt agreeable and appreciative. BIMS () and PHQ-9 (11/23) completed for MDS assessment. Addendum entered by Norma Pedro 01/10/23 08:45: [facility] cannot accept. Referral phoned to [facility]. They can accept. EBONIE updated pt. Addendum entered by Norma Pedro 01/09/23 15:25: Followed up with pt on [facility] preferences. Pt prefers [facility] then [facility]. Sent referral to [facility] via [facility] for PT/OT. Addendum entered by Norma Pedro 01/08/23 15:09: Followed up pt on [facility] choices. pt has not made a selection yet, but is pleased with cot transport. EBONIE phoned [facility] to schedule for 1100. Original Note: Social Work DME referral sent via [employer] to [facility]. Therapy recommending cot transport as pt cannot complete steps to get into home. ANUM LopezW
[2023-01-08 09:28] VITALS: BMI 42.5
[2023-01-08] MEDS: Cholestyramine/Sucrose 4 GM/PACKET PO (10:55)
[2023-01-08] MEDS: Ferrous Sulfate 325 MG Tablet PO (10:55)
[2023-01-08 14:00] VITALS: BP 126/72; PULSE 72; RESP 16; TEMP 36.2; O2SAT 97
[2023-01-08] MEDS: amLODIPine 10 MG Tablet PO (19:54)
[2023-01-08 20:45] VITALS: O2SAT 96
[2023-01-09] MEDS: HYDROcodone Bitartrate/Apap 5/325 Tablet PO ×4 (00:52→20:42)
[2023-01-09] MEDS: Fluticasone 0.05% 1 SPRAY NASAL.SRY 2 SPRAY NASAL (06:07)
[2023-01-09] MEDS: buPROPion 75 MG Tablet PO (06:08)
[2023-01-09] MEDS: BETHANECHOL CHLORIDE 25 MG TABLET PO ×3 (06:08→20:37)
[2023-01-09] MEDS: Magnesium Chloride 64 MG Delay Rel.Tablet 128 MG PO (06:08)
[2023-01-09] MEDS: Capsaicin 0.025% 1 APPLIC Tube TOPICAL ×2 (06:09→20:38)
[2023-01-09] MEDS: Lisinopril 40 MG Tablet PO (06:09)
[2023-01-09] MEDS: Escitalopram Oxalate 20 MG Tablet PO (06:09)
[2023-01-09] MEDS: Famotidine 20 MG Tablet PO ×2 (06:09→17:55)
[2023-01-09] MEDS: Loratadine 10 MG Tablet PO (06:09)
[2023-01-09] MEDS: Heparin Injection (Vial) 5,000 UNIT/ML VIAL 5000 UNIT SC ×3 (06:10→20:37)
[2023-01-09] MEDS: Menthol/Lanolin/Calamine/Znox 113 GM Tube 1 APPLIC TOPICAL ×2 (06:18→18:02)
[2023-01-09 07:14] VITALS: O2SAT 96
[2023-01-09] MEDS: Carvedilol 25 MG Tablet PO ×2 (07:55→17:55)
[2023-01-09] MEDS: Gabapentin 600 MG Tablet PO ×3 (07:55→17:55)
[2023-01-09] MEDS: Lidocaine 5% Patch 1 PATCH TOPICAL (07:55)
[2023-01-09] MEDS: Multivitamin (Healthy Eyes) Capsule 1 CAP PO (07:56)
[2023-01-09] MEDS: Cholestyramine/Sucrose 4 GM/PACKET PO (10:42)
[2023-01-09] MEDS: Ammonium Lactate 225 gm Bottle 1 APPLIC TOPICAL ×2 (10:43→20:38)
[2023-01-09] MEDS: Ferrous Sulfate 325 MG Tablet PO (12:23)
[2023-01-09] MEDS: cycloBENZAPRine HCl 5 MG TABLET PO (12:27)
[2023-01-09 14:00] VITALS: PULSE 60; RESP 18; TEMP 36.2; O2SAT 90
[2023-01-09] MEDS: amLODIPine 10 MG Tablet PO (20:37)
[2023-01-09 20:43] VITALS: BP 126/61; PULSE 60
[2023-01-10] MEDS: cycloBENZAPRine HCl 5 MG TABLET PO ×2 (00:20→15:36)
[2023-01-10] MEDS: Menthol/Lanolin/Calamine/Znox 113 GM Tube 1 APPLIC TOPICAL ×2 (06:43→17:35)
[2023-01-10] MEDS: BETHANECHOL CHLORIDE 25 MG TABLET PO ×3 (06:43→21:42)
[2023-01-10] MEDS: Heparin Injection (Vial) 5,000 UNIT/ML VIAL 5000 UNIT SC ×3 (06:44→21:43)
[2023-01-10] MEDS: Fluticasone 0.05% 1 SPRAY NASAL.SRY 2 SPRAY NASAL (06:44)
[2023-01-10] MEDS: Loratadine 10 MG Tablet PO (06:44)
[2023-01-10] MEDS: Famotidine 20 MG Tablet PO ×2 (06:45→17:42)
[2023-01-10] MEDS: Lisinopril 40 MG Tablet PO (06:45)
[2023-01-10] MEDS: Escitalopram Oxalate 20 MG Tablet PO (06:45)
[2023-01-10] MEDS: buPROPion 75 MG Tablet PO (06:45)
[2023-01-10] MEDS: Magnesium Chloride 64 MG Delay Rel.Tablet 128 MG PO (06:45)
[2023-01-10] MEDS: Capsaicin 0.025% 1 APPLIC Tube TOPICAL ×2 (06:46→21:52)
[2023-01-10] MEDS: HYDROcodone Bitartrate/Apap 5/325 Tablet PO ×4 (06:54→21:41)
[2023-01-10 07:20] VITALS: O2SAT 95
[2023-01-10] MEDS: Carvedilol 25 MG Tablet PO ×2 (07:55→17:41)
[2023-01-10] MEDS: Multivitamin (Healthy Eyes) Capsule 1 CAP PO (07:55)
[2023-01-10] MEDS: Gabapentin 600 MG Tablet PO ×3 (07:55→17:42)
[2023-01-10] MEDS: Lidocaine 5% Patch 1 PATCH TOPICAL (07:56)
[2023-01-10] MEDS: Ammonium Lactate 225 gm Bottle 1 APPLIC TOPICAL ×2 (11:44→21:53)
[2023-01-10] MEDS: Cholestyramine/Sucrose 4 GM/PACKET PO (11:44)
[2023-01-10] MEDS: Ferrous Sulfate 325 MG Tablet PO (11:44)
[2023-01-10 14:00] VITALS: BP 134/68; PULSE 60; RESP 16; TEMP 36.2; O2SAT 94
--- NOTE | 2023-01-10 14:13 | MDS.RN ---
Pain interview for emerald 01/11/23
[2023-01-10] MEDS: amLODIPine 10 MG Tablet PO (21:43)
[2023-01-10 22:00] VITALS: O2SAT 96
[2023-01-11] MEDS: HYDROcodone Bitartrate/Apap 5/325 Tablet PO ×2 (04:45→10:59)
[2023-01-11] MEDS: Magnesium Chloride 64 MG Delay Rel.Tablet 128 MG PO (04:45)
[2023-01-11] MEDS: BETHANECHOL CHLORIDE 25 MG TABLET PO (04:45)
[2023-01-11] MEDS: Lisinopril 40 MG Tablet PO (04:46)
[2023-01-11] MEDS: buPROPion 75 MG Tablet PO (04:46)
[2023-01-11] MEDS: Loratadine 10 MG Tablet PO (04:46)
[2023-01-11] MEDS: Famotidine 20 MG Tablet PO (04:46)
[2023-01-11] MEDS: Fluticasone 0.05% 1 SPRAY NASAL.SRY 2 SPRAY NASAL (04:47)
[2023-01-11] MEDS: Heparin Injection (Vial) 5,000 UNIT/ML VIAL 5000 UNIT SC (04:47)
[2023-01-11] MEDS: Escitalopram Oxalate 20 MG Tablet PO (04:47)
[2023-01-11] MEDS: cycloBENZAPRine HCl 5 MG TABLET PO (04:48)
[2023-01-11] MEDS: Menthol/Lanolin/Calamine/Znox 113 GM Tube 1 APPLIC TOPICAL (04:52)
[2023-01-11 07:21] VITALS: O2SAT 97
[2023-01-11 07:24] VITALS: O2SAT 95
[2023-01-11] MEDS: Gabapentin 600 MG Tablet PO (08:17)
[2023-01-11] MEDS: Multivitamin (Healthy Eyes) Capsule 1 CAP PO (08:18)
[2023-01-11] MEDS: Carvedilol 25 MG Tablet PO (08:18)
[2023-01-11] MEDS: Capsaicin 0.025% 1 APPLIC Tube TOPICAL (09:20)
[2023-01-11] MEDS: Lidocaine 5% Patch 1 PATCH TOPICAL (09:23)
[2023-01-11] MEDS: Cholestyramine/Sucrose 4 GM/PACKET PO (09:24)
[2023-01-11] MEDS: Ammonium Lactate 225 gm Bottle 1 APPLIC TOPICAL (09:24)
[2023-01-11 11:03] VITALS: BP 139/50; PULSE 59; RESP 18; TEMP 36.6; O2SAT 94
== END 2023-01-11 11:20 | disposition home health service (06) | DRG 560 ==
PROVIDERS: Admitting Provider Family Medicine Geriatric Medicine; PCP Internal Medicine; Visit Provider Family Medicine Geriatric Medicine
DX: Z47.89 Encounter for other orthopedic aftercare (principal); G95.9 Disease of spinal cord, unspecified; M51.04 Intervertebral disc disorders with myelopathy, thoracic region; M48.04 Spinal stenosis, thoracic region; L40.9 Psoriasis, unspecified; G62.9 Polyneuropathy, unspecified; D50.9 Iron deficiency anemia, unspecified; G47.33 Obstructive sleep apnea (adult) (pediatric); H35.30 Unspecified macular degeneration; I10 Essential (primary) hypertension; J30.9 Allergic rhinitis, unspecified; K21.9 Gastro-esophageal reflux disease without esophagitis; E83.42 Hypomagnesemia; Z87.891 Personal history of nicotine dependence; F32.A Depression, unspecified; Z79.01 Long term (current) use of anticoagulants; Z79.899 Other long term (current) drug therapy; R33.9 Retention of urine, unspecified; S22.060D Wedge compression fracture of T7-T8 vertebra, subsequent encounter for fracture with routine healing; X58.XXXD Exposure to other specified factors, subsequent encounter
CPT/HCPCS: 36415; 80048; 83735; 85025; 87811; 97110; 97116; 97129; 97163; 97167; 97530; 97535; 97802

== ENCOUNTER 2023-01-14 15:37 | Observation (INO) | payer MEDICARE, SELFPAY ==
[2023-01-14 15:38] VITALS: BP 154/83; PULSE 74; RESP 18; TEMP 36.1; O2SAT 92; BMI 43.9
--- NOTE | 2023-01-14 16:07 | EDS_ITS ---
HPI History of Present Illness Chief Complaint: Back Detail of Chief Complaint: Back pain and lower abdomen pain Informant: patient Narrative Narrative: Patient presents to the emergency department complaint low back pain that started about 4 days ago when he was discharged from the transitional care unit to home. Patient states that he had a spinal fusion done at [facility] on November 09 and then spent time and at [facility] for rehabilitation. Patient was then transferred to our transitional care unit where he spent about 3 weeks and was just discharged 4 days ago. Patient states that he was supposed to have a walker but its too narrow for him to use at home. Patient also was to have a wheelchair but it is a bariatric wheelchair therefore it will not fit through any of his doorways. Patient states that several nights ago he had collapsed a wheelchair and got into the bathroom and then spent the night in his wheelchair because he had a hard time get back out of the bathroom. Patient states that for the last 2 days has been unable to get off his recliner because he is having pain in his back that radiates to the lower abdomen and he is just too weak. Patient lives alone but has had a friend stay with him over this last weekend. Patient denies any fevers. He denies urinary symptoms. He denies pain radiating down the legs but just generally feels weak in both legs. Patient denies falls or new injury. [facility] Medical History Cancer Hypertension FELA (obstructive sleep apnea) Psoriasis Home Medications amlodipine 10 mg tablet 10 mg PO QHS Blood pressure 10/14/19 [History Last Taken 10/17/20] escitalopram oxalate 20 mg tablet 20 mg PO DAILY Check with primary doctor 10/14/19 [History Last Taken 10/22/22] bupropion HCl 75 mg tablet 75 mg PO DAILY Depression 09/18/22 [History Last Taken Unknown] carvedilol 25 mg tablet 25 mg PO BID Check with primary doctor 09/18/22 [History Last Taken 10/22/22] acetaminophen 325 mg tablet 650 mg PO Q4H PRN PRN mild pain 1-3 #0 tabs 01/07/23 [Rx Last Taken Unknown] bethanechol chloride 25 mg tablet 25 mg PO TID 30 days #90 tabs 01/07/23 [Rx Last Taken Unknown] cholestyramine (with sugar) 4 gram powder for susp in a packet 4 g PO DAILY@1000 30 days #30 ea 01/07/23 [Rx Last Taken Unknown] cyclobenzaprine 5 mg tablet 5 mg PO TID PRN PRN Muscle Spasm 30 days #90 tabs 01/07/23 [Rx Last Taken Unknown] famotidine 20 mg tablet 20 mg PO BID 30 days #60 tabs 01/07/23 [Rx Last Taken Unknown] ferrous sulfate 325 mg (65 mg iron) tablet (FeroSul) 325 mg PO DAILY@1200 30 days #30 tabs 01/07/23 [Rx Last Taken Unknown] fluticasone propionate 50 mcg/actuation nasal spray,suspension 2 spray NASAL DAILY 30 days #16 grams 01/07/23 [Rx Last Taken Unknown] gabapentin 600 mg tablet 600 mg PO TIDCM 30 days #90 tabs 01/07/23 [Rx Last Taken Unknown] hydrocodone-acetaminophen 5-325mg 5mg-325mg 1 tab PO Q4H PRN PRN Moderate to severe pain 4-10 7 days #42 tabs 01/07/23 [Rx Last Taken Unknown] lidocaine 5 % topical patch 1 patch topical 0800 30 days #30 ea 01/07/23 [Rx Last Taken Unknown] lisinopril 40 mg tablet 40 mg PO DAILY 30 days #30 tabs 01/07/23 [Rx Last Taken Unknown] magnesium chloride 64 mg (magnesium chloride) tablet,delayed release (Mag 64) 128 mg PO DAILY 30 days #60 tabs 01/07/23 [Rx Last Taken Unknown] vit A 300 mcg-C 200 mg-E 27 mg-lutein 2 mg and minerals tablet (Healthy Eyes) 1 cap PO DAILYCM #0 tabs 01/07/23 [Rx Last Taken Unknown] Allergy/AdvReac Type Severity Reaction Status Date / Time lorazepam Allergy Other Verified 01/14/23 15:41 Penicillins Allergy Itching Verified 01/14/23 15:41 poison ever extract Allergy Itching Verified 01/14/23 15:41 tizanidine [From Zanaflex] Allergy Other Verified 01/14/23 15:41 Family History Other Brain aneurysm Heart disease Prostate CA Surgical History History of carpal tunnel surgery History of herniorrhaphy Hx of appendectomy Hx of cholecystectomy Status post laminectomy Social History household members: spouse Smoking Status: Former smoker alcohol intake: current alcohol intake frequency: 3 or more drinks per day substance use type: does not use ROS ROS ED Review of Systems ROS Unobtainable: other Constitutional Constitutional ED: Reports lethargy; Denies chills, fever(s), sweats or weight loss Eyes Eyes: Denies blurry vision, change in vision or diplopia ENT ENT ED: Denies rhinorrhea or sore throat Cardiovascular Cardiovascular: Denies chest pain, orthopnea or racing heartbeat Respiratory/Chest Respiratory/Chest: Denies cough, dyspnea, dyspnea on exertion, orthopnea or sputum Gastrointestinal Gastrointestinal: Reports abdominal pain; Denies diarrhea, nausea or vomiting Genitourinary Genitourinary ED: Denies dysuria, hematuria or urinary frequency Musculoskeletal Musculoskeletal: Reports back pain; Denies arthralgias, myalgias or neck pain Integumentary Denies abscess, Abrasions or rash Neurologic Neurologic: Reports weakness; Denies headache(s) Psychiatric Psychiatric: Denies anxiety, depression or suicidal thoughts Endocrine Endocrinology: Denies polydipsia, polyphagia or polyuria Hematologic/Lymphatic Hematologic/Lymphatic: Denies easy bleeding, easy bruising or lymphadenopathy Allergic/Immunologic Allergic/Immunologic ED: Denies mouth swelling, tongue swelling or urticaria EXAM Physical Exam Const Vital Signs: 01/14/23 15:38 Temperature 96.9 F L Temperature Source Temporal Pulse Rate 74 Respiratory Rate 18 Blood Pressure 154/83 H Blood Pressure Mean 106 Pulse Ox 92 Oxygen Delivery Method Room Air Positive well nourished and well developed General Appearance ED: well developed and NAD HEENT Reports TM's clear and moist mucous membranes normocephalic and atraumatic; Negative for trauma or tenderness Tympanic Membrane ED: Yes TM's clear Eyes PERRL and EOMs intact bilaterally General Eye ED: Negative for pale conjunctiva or scleral icterus Neck no lymphadenopathy, supple and no JVD General: Negative for tenderness Chest Wall inspection of chest normal and palpation of chest normal Chest: Negative for tenderness Resp normal respiratory effort and clear to auscultation bilaterally Effort and Inspection: Negative for respiratory distress or pain with movement Auscultation: Negative for rhonchi, wheezes or diminished lung sounds Cardio regular rate, regular rhythm, S1 normal heart sound, S2 normal heart sound and no murmurs Peripheral Pulses: pulses 2+ throughout GI normal to inspection, nondistended, normoactive bowel sounds, soft to palpation, non-distended and no masses GI Narrative: Tenderness diffusely to the lower abdomen. There is no rebound, rigidity, or peritoneal signs. He does have some areas of ecchymosis from where he has had injections of blood thinner from what he tells me. Patient currently not on blood thinners at home. Back/Spine no CVA tenderness and no thoracic nor lumbar tenderness Back/Spine Narrative: Evaluation of his back does reveal a healed surgical wound over the thoracic midline of the spine. There is no erythema or warmth. Patient has negative straight leg raises bilaterally but does complain of pain in his abdomen when I raise his legs. Deep tendon reflexes are plus 1 out of 4 bilaterally at the patella and Achilles. Patient has normal L5 extension bilaterally. Patient has normal sensation to light touch. Extremity normal to inspection General Extremety ED: Negative for edema General Extremity: Negative for edema Neuro oriented x3, CN's II-XII intact bilaterally, no sensory deficits noted and gait normal Sensorium / Orientation: awake, alert, oriented to person, oriented to place and oriented to time Motor Exam: strength 5/5 throughout and strength abnormal Psych mental status grossly normal Skin no rashes or lesions noted and no wounds MDM MDM MDM Narrative Medical decision making narrative: IV line established on arrival. Patient was medicated morphine and Zofran for pain. CBC with differential obtained showed a slightly elevated white count of 12.3, hemoglobin 11.6, hematocrit 35.7 and platelets 239. Chemistries unremarkable. Urinalysis showed 500 excite esterase and 10-25 WBCs as well as +1 bacteria. I did send off a urine culture. Patient had a CT scan of the abdomen pelvis without contrast that was read by radiology as L3 compression fracture of unknown age. At this point discussed case with hospitalist will evaluate patient for admission for possible placement. Patient unable to care for self at home currently. Discussed case also with back surgeon Dr. Perez who knows the patient and has taken care of the patient in the past. He was comfortable with admission here at [facility] and recommended obtaining MRI of thoracic and lumbar spine in the a.m. without contrast. Patient will be admitted in stable condition. Lab Data Attestation: I reviewed the patient's lab results. Labs: Laboratory Results - last 24 hr 01/14/23 01/14/23 01/14/23 16:30 16:30 19:08 WBC 12.3 H RBC 3.66 L Hgb 11.6 L Hct 35.7 L MCV 97.5 H MCH 31.7 MCHC 32.5 RDW Std Deviation 50.3 H RDW Coeff of Justine 14.1 Plt Count 239 MPV 8.3 Immature Gran % (Auto) 0.600 Neut % (Auto) 70.5 H Lymph % (Auto) 13.4 L [place] % (Auto) 13.4 H Eos % (Auto) 1.8 Baso % (Auto) 0.3 Absolute Neuts (auto) 8.7 H Absolute Lymphs (auto) 1.65 Nucleated RBC % 0 Differential Comment SCANNED Diff Path Review May foll Sodium 139 Potassium 3.7 Chloride 103 Carbon Dioxide 29.0 Anion Gap 7 BUN 15 Creatinine 0.87 Estim Creat Clear Calc 90.16 Est GFR (MDRD) Af Amer 113 Est GFR (MDRD) Non-Af 93 BUN/Creatinine Ratio 17.2 Glucose 108 H Calcium 10.5 H Urine Color Yellow Urine Clarity Clear Urine pH 6.0 Ur Specific [place] 1.015 Urine Protein 15 H Urine Glucose (UA) Normal Urine Ketones Negative Urine Occult Blood 50 H Urine Nitrite Negative Urine Bilirubin Negative Urine Urobilinogen Normal Ur Leukocyte Esterase 500 H Urine RBC 0 SEEN Urine WBC 10-25 SEEN Ur Squamous Epith Cells 0 SEEN Urine Bacteria 1+ Urine Mucus 0 SEEN Radiography Diagnostic Testing: Clinical Impression(s) from Imaging Studies Abdomen/Pelvis CT 01/14/23 16:42 IMPRESSION: Ileus. Increased stool. Old compression fracture T7. Compression fracture L3 age-indeterminate. Electronically Signed: Chalino Ramos MD at 17:20 EDT , Discharge Plan Triage Chief Complaint: Back ED Provider: Zafar Ayala Dx/Rx/DC Orders Clinical Impression: Weakness, Back pain, Adult failure to thrive, Abdominal pain Prescriptions: No Action amlodipine 10 MG tablet 10 mg PO QHS escitalopram oxalate 20 MG tablet 20 mg PO DAILY carvedilol 25 mg tablet 25 mg PO BID Label Comments: TAKE 1 TABLET BY MOUTH TWICE A DAY WITH MEALS bupropion HCl 75 mg tablet 75 mg PO DAILY Label Comments: START WITH TAKING 1 TABLET DAILY AND INCREASE TO 1 TABLET TWICE DAILY IF TOLERATED acetaminophen 325 mg Tablet 650 mg PO Q4H PRN PRN (Reason: mild pain 1-3) Qty: 0 0RF gabapentin 600 mg Tablet 600 mg PO TIDCM 30 Days Qty: 90 0RF hydrocodone-acetaminophen 5-325 mg Tablet 1 tab PO Q4H PRN PRN (Reason: Moderate to severe pain 4-10) 7 Days Qty: 42 0RF bethanechol chloride 25 mg Tablet 25 mg PO TID 30 Days Qty: 90 0RF famotidine 20 mg Tablet 20 mg PO BID 30 Days Qty: 60 0RF ferrous sulfate [FeroSul] 325 mg (65 mg iron) Tablet 325 mg PO DAILY@1200 30 Days Qty: 30 0RF fluticasone propionate 50 mcg/actuation [place],Suspension 2 spray NASAL DAILY 30 Days Qty: 16 0RF cyclobenzaprine 5 mg Tablet 5 mg PO TID PRN PRN (Reason: Muscle Spasm) 30 Days Qty: 90 0RF cholestyramine (with sugar) 4 gram Powder In Packet 4 g PO DAILY@1000 30 Days Qty: 30 0RF lidocaine 5 % Adhesive Patch,Medicated 1 patch topical 0800 30 Days Qty: 30 0RF lisinopril 40 mg Tablet 40 mg PO DAILY 30 Days Qty: 30 0RF Healthy Eyes 300 mcg-200 mg-27 mg-2 mg Tablet 1 cap PO DAILYCM Qty: 0 0RF Mag 64 64 mg Tablet,Delayed Release (Dr/Ec) 128 mg PO DAILY 30 Days Qty: 60 0RF Primary Care Provider: Arleen Hwang Referrals: Arleen Hwang MD [Primary Care Provider] - Disposition Disposition: Acute Care Hospital
[2023-01-14 16:41] LABS: Absolute Lymphocyte Count 1.65 X10^3/uL (0.83-4.51); Absolute Neutrophil Count 8.7 X10^3/uL (2.0-7.7); Basophil# 0.04 X10^3/uL; Basophil% 0.3 % (0-1); Eosinophil# 0.22 X10^3/uL; Eosinophils% 1.8 % (0-5); Hematocrit 35.7 % (40-54); Hemoglobin 11.6 g/dL (13.0-16.5); Lymphocyte # 1.65 X10^3/ul (0.83-4.51); Lymphocyte % 13.4 % (19-41); Mean Corp Hgb Conc 32.5 g/dL (32-36); Mean Corpuscular Hgb 31.7 pg (27.0-32.0); Mean Corpuscular Volume 97.5 fL (80-94); Mean Platelet Vol. 8.3 fl (6.2-12.0); Monocyte# 1.65 X10^3/uL; Monocyte% 13.4 % (0-10); NRBC Flagged by Analyzer 0 % (0-5); Neutrophil % 70.5 % (47-70); POSITIVE DIFFERENTIAL YES; Platelet Count 239 K/mm3 (150-450); RBC Distribution Width CV 14.1 % (11.6-14.6); RBC Distribution Width SD 50.3 fl (35.1-43.9); Red Blood Count 3.66 M/mm3 (4.6-6.2); White Blood Count 12.3 K/mm3 (4.4-11.0)
--- NOTE | 2023-01-14 16:42 | CT_ITS ---
STUDY: CT ABDOMEN AND PELVIS WITHOUT CONTRAST REASON FOR EXAM: Male, 67 years old. back and abdoment pain RADIATION DOSAGE (If Supplied By Facility): CTDIvol = ( 23.71 ) mGy, DLP = ( 1416.14 ) mGycm TECHNIQUE: Transaxial images were obtained from the dome of the diaphragm to the symphysis pubis without oral contrast, and without intravenous contrast. Sagittal and coronal images were reconstructed. Individualized dose optimization techniques were used for this CT. COMPARISON: CT abdomen and pelvis October 30, 2022 FINDINGS: Bibasilar subsegmental atelectasis. Cardiomegaly and Calcific coronary artery disease. Normal liver. Gallbladder surgically absent. Normal spleen. Normal pancreas. Normal bilateral adrenal glands. Normal right kidney. Normal left kidney. Normal visualized stomach. Air-fluid levels in the small bowel. Colonic diverticulosis and increased stool. Surgically absent appendix. Calcified plaque along the aorta and its branches. IVC filter present above the renal veins. Normal retroperitoneum. Normal urinary bladder. Bilateral fat-containing inguinal hernias. Normal abdominal wall. Compression fracture superior endplate of L3 vertebral body. Old compression fracture T7 and posteriorly interbody fusion rods and pedicular screws. CT/Abdomen/Pelvis without Cont IMPRESSION: Ileus. Increased stool. Old compression fracture T7. Compression fracture L3 age-indeterminate. Electronically Signed: Chalino Ramos MD at 17:20 EDT ,
[2023-01-14 16:47] LABS: Differential Indicated SCAN CRITERIA MET
[2023-01-14 16:54] LABS: Anion Gap 7 (5-15); BUN 15 mg/dL (7-18); BUN/Creat Ratio 17.2 RATIO (10-20); Calcium,Total 10.5 mg/dL (8.5-10.1); Chloride 103 mmol/L (98-107); Creatinine, Serum 0.87 mg/dL (0.70-1.30); EST Glomerular Filtration Rate 93 mL/min (>60); Est Glom Filt Rate - Afr Amer 113 mL/min (>60); Estimated Creatinine Clearance 90.16 ml/min; Glucose 108 mg/dL (74-106); Potassium 3.7 mmol/L (3.5-5.1); Sodium Level 139 mmol/L (136-145)
[2023-01-14] MEDS: 0.9% Normal Saline 1,000 ML 150 ML IV (17:06)
[2023-01-14 17:10] LABS: Differential Comment SCANNED
[2023-01-14 19:22] LABS: Mucous, Urine 0 SEEN /hpf (<or=2+); Red Blood Cells-Urine 0 SEEN /hpf (0-5); Squamous Epithelial Cells - UA 0 SEEN /hpf (0-5)
[2023-01-14 19:23] LABS: Color, Urine Yellow (Yellow); Glucose, Dipstick Normal (Normal); Ketone-Dipstick Negative (Negative); Leukocyte Esterase-Dipstick 500 /ul (Negative); Nitrite-Dipstick Negative (Negative); Occult Blood-Urine 50 /ul (Negative); Protein-Dipstick 15 mg/dl (Negative); Specific Gravity, Urine 1.015 (1.002-1.030); Urine Bilirubin Dipstick Negative (Negative); Urine Clarity Clear (Clear); Urine Urobilinogen Normal (Normal)
[2023-01-14 19:30] LABS: Bacteria 1+ /hpf (None Seen); White Blood Cells 10-25 SEEN /hpf (0-5)
--- NOTE | 2023-01-14 20:14 | HP.PCM.HOS_ITS ---
HPI - General General Date of Admission: 01/14/23 Date of Service: 01/14/23 Chief Complaint: Lower back pain HPI Narrative ZIYAD BAER, is a 67 M with a significant history of a T7 compression fracture status post 2 times surgery with first surgery (T7 percutaneous vertebral body biopsy and T7 laminectomy decompression ) on 10/23/[address] Dennis Perez; and a spinal fusion on May 09, 2023 at [facility] with subsequent 1 month rehabilitation at [facility]; and a 3 weeks rehabilitation at our Transitional care unit of [facility] and discharged on 01/07/2023 presenting to the emergency department again with lower back pain that started 3 to 4 days before presentation. He described the pain as sharp. The pain is aggravated with movement and the pain improves with rest. The pain radiates to his lower abdomen. Also patient reports that after discharge from the Transitional care unit he obtained a walker which is too narrow for him and a wheelchair which is too big to go through hallways and doors in his house. He is unable to get up from bed at this time. [facility] Medical History Cancer Hypertension FELA (obstructive sleep apnea) Psoriasis Home Medications amlodipine 10 mg tablet 10 mg PO QHS Blood pressure 10/14/19 [History Last Taken 10/17/20] escitalopram oxalate 20 mg tablet 10 mg PO DAILY Check with primary doctor 10/14/19 [History Last Taken 10/22/22] bupropion HCl 75 mg tablet 75 mg PO DAILY Depression 09/18/22 [History Last Taken Unknown] carvedilol 25 mg tablet 25 mg PO BID Check with primary doctor 09/18/22 [History Last Taken 10/22/22] bethanechol chloride 25 mg tablet 25 mg PO TID 30 days #90 tabs 01/07/23 [Rx Last Taken Unknown] cholestyramine (with sugar) 4 gram powder for susp in a packet 4 g PO DAILY@1000 30 days #30 ea 01/07/23 [Rx Last Taken Unknown] cyclobenzaprine 5 mg tablet 5 mg PO TID PRN PRN Muscle Spasm 30 days #90 tabs 01/07/23 [Rx Last Taken Unknown] famotidine 20 mg tablet 20 mg PO BID 30 days #60 tabs 01/07/23 [Rx Last Taken Unknown] ferrous sulfate 325 mg (65 mg iron) tablet (FeroSul) 325 mg PO DAILY@1200 30 days #30 tabs 01/07/23 [Rx Last Taken Unknown] fluticasone propionate 50 mcg/actuation nasal spray,suspension 2 spray NASAL DAILY 30 days #16 grams 01/07/23 [Rx Last Taken Unknown] gabapentin 600 mg tablet 600 mg PO TIDCM 30 days #90 tabs 01/07/23 [Rx Last T aken Unknown] hydrocodone-acetaminophen 5-325mg 5mg-325mg 1 tab PO Q4H PRN PRN Moderate to severe pain 4-10 7 days #42 tabs 01/07/23 [Rx Last Taken Unknown] lidocaine 5 % topical patch 1 patch topical 0800 30 days #30 ea 01/07/23 [Rx Last Taken Unknown] lisinopril 40 mg tablet 40 mg PO DAILY 30 days #30 tabs 01/07/23 [Rx Last Taken Unknown] magnesium chloride 64 mg (magnesium chloride) tablet,delayed release (Mag 64) 128 mg PO DAILY 30 days #60 tabs 01/07/23 [Rx Last Taken Unknown] vit A 300 mcg-C 200 mg-E 27 mg-lutein 2 mg and minerals tablet (Healthy Eyes) 1 cap PO DAILYCM #0 tabs 01/07/23 [Rx Last Taken Unknown] albuterol sulfate 90 mcg/actuation aerosol inhaler 2 puff inhalation Q6H sob 01/14/23 [History Last Taken Unknown] losartan 100 mg tablet 100 mg PO DAILY 01/14/23 [History Last Taken Unknown] Allergy/AdvReac Type Severity Reaction Status Date / Time lorazepam Allergy Other Verified 01/14/23 15:41 Penicillins Allergy Itching Verified 01/14/23 15:41 poison ever extract Allergy Itching Verified 01/14/23 15:41 tizanidine [From Zanaflex] Allergy Other Verified 01/14/23 15:41 Family History Other Brain aneurysm Heart disease Prostate CA Surgical History History of carpal tunnel surgery History of herniorrhaphy Hx of appendectomy Hx of cholecystectomy Status post laminectomy Social History household members: spouse Smoking Status: Former smoker alcohol intake: current alcohol intake frequency: 3 or more drinks per day substance use type: does not use ROS ROS Narrative Pertinent positives and pertinent negatives as noted in HPI. All other systems were reviewed and are negative Vital Signs Vital Signs Vital Signs: 01/14/23 15:38 Temperature 96.9 F L Temperature Source Temporal Pulse Rate 74 Respiratory Rate 18 Blood Pressure 154/83 H Blood Pressure Mean 106 Pulse Ox 92 Oxygen Delivery Method Room Air Weight Weight: 143 kg Body Mass Index (BMI) 43.9 Physical Exam Narrative Physical exam: General: Well-nourished, well-developed. Head: Normocephalic, atraumatic, no tenderness Eyes: Vision is grossly intact. EOMI ENT, no trauma, moist mucous membranes, no rhinorrhea Neck: Nontender, No thyromegaly. CVS: Regular rate and rhythm. S1-S2 present. No murmur, gallop or rub. Respiratory : clear to auscultation bilaterally, chest wall nontender, no wheezing Abdomen: Soft, nontender, nondistended, normal bowel sounds, no masses : Deferred Back: Nontender, no CVA tenderness, no midline spinal tenderness, deformities, step-offs Extremities: Unable to raise bilateral lower legs. Bilateral lower legs and feet edema. Skin: Abrasions on left arteaga. Normal color, no trauma. Neuro: Alert, oriented, cranial nerves II through XII grossly intact. Psychiatry: Normal mood. Normal affect. Not depressed. Not anxious. Results Lab / Micro Data Result Diagrams: 01/14/23 16:30 01/14/23 16:30 Labs: Laboratory Results - last 24 hr 01/14/23 16:30: WBC 12.3 H, RBC 3.66 L, Hgb 11.6 L, Hct 35.7 L, MCV 97.5 H, MCH 31.7, MCHC 32.5, RDW Std Deviation 50.3 H, RDW Coeff of Justine 14.1, Plt Count 239, MPV 8.3, Immature Gran % (Auto) 0.600, Neut % (Auto) 70.5 H, Lymph % (Auto) 13.4 L, [place] % (Auto) 13.4 H, Eos % (Auto) 1.8, Baso % (Auto) 0.3, Absolute Neuts (auto) 8.7 H, Absolute Lymphs (auto) 1.65, Nucleated RBC % 0, Differential Comment SCANNED, Diff Path Review February01/14/23 16:30: Sodium 139, Potassium 3.7, Chloride 103, Carbon Dioxide 29.0, Anion Gap 7, BUN 15, Creatinine 0.87, Estim Creat Clear Calc 90.16, Est GFR (MDRD) Af Amer 113, Est GFR (MDRD) Non-Af 93, BUN/Creatinine Ratio 17.2, Glucose 108 H, Calcium 10.5 H 01/14/23 19:08: Urine Color Yellow, Urine Clarity Clear, Urine pH 6.0, Ur Specific [place] 1.015, Urine Protein 15 H, Urine Glucose (UA) Normal, Urine Ketones Negative, Urine Occult Blood 50 H, Urine Nitrite Negative, Urine Bilirubin Negative, Urine Urobilinogen Normal, Ur Leukocyte Esterase 500 H, Urine RBC 0 SEEN, Urine WBC 10-25 SEEN, Ur Squamous Epith Cells 0 SEEN, Urine Bacteria 1+, Urine Mucus 0 SEEN Radiology Impression Abdomen/Pelvis CT 01/14/23 16:42 IMPRESSION: Ileus. Increased stool. Old compression fracture T7. Compression fracture L3 age-indeterminate. Electronically Signed: Chalino Ramos MD at 17:20 EDT Reading Location ID and State: [facility] / [place] , Service support , Assessment & Plan Assessment/Plan (1) Severe back pain: (2) Bilateral leg weakness: (3) Ileus: PLAN: Plan Compression fracture of L3/Severe pain and bilateral lower leg weakness. Compression fracture of L3 age-underdetermined radiologist impression of abdom en/pelvis CT Abdomen pelvis CT was visualized and independently interpreted and I agree with the interpretation. As needed IV morphine ordered ED doctor talk to Dr. Dennis Perez who recommended MRI of thoracic and lumbar area without contrast, ordered. Dr. Dennis Perez, Spinal surgeon consult PT and OT to work with patient. Leukocytosis A white count of 12,300 on presentation. Likely reactive. Trend. Hypercalcemia His Calcium was 10.5 on presentation. And his calcium from late November has been mildly high at 10.2 and 10.3. Trend. IV fluids ordered. Check parathyroid hormone. Ileus Per CT of abdomen and pelvis Patient complains of abdominal pain. Likely secondary to narcotics. We will keep patient NPO. Normal saline IV hydration for supportive treatment. General surgery consult. DVT prophylaxis SCDs ordered. Charges/Coding Visit Charges Inpatient E&M: 07666 Init Hosp L3
[2023-01-14 20:24] VITALS: O2SAT 89
[2023-01-14 21:11] VITALS: BP 143/96; PULSE 70; RESP 18; TEMP 36.6; O2SAT 94
[2023-01-14 22:10] VITALS: BMI 42.3
[2023-01-14 22:22] VITALS: BP 146/89; PULSE 75; RESP 17; TEMP 36.3; O2SAT 96
[2023-01-14] MEDS: 0.9% Normal Saline 1,000 ML 75 ML IV (22:36)
[2023-01-15] VITALS (7 sets, daily range): BP systolic 138–151; BP diastolic 62–100; PULSE 53–80; RESP 18–20; TEMP 36.2–37.3; O2SAT 93–98
[2023-01-15] MEDS: cycloBENZAPRine HCl 5 MG TABLET PO ×2 (05:30→13:49)
[2023-01-15] MEDS: BETHANECHOL CHLORIDE 25 MG TABLET PO (05:30)
[2023-01-15 07:00] LABS: Absolute Lymphocyte Count 1.65 X10^3/uL (0.83-4.51); Absolute Neutrophil Count 6.1 X10^3/uL (2.0-7.7); Basophil# 0.04 X10^3/uL; Basophil% 0.4 % (0-1); Eosinophil# 0.24 X10^3/uL; Eosinophils% 2.5 % (0-5); Hematocrit 32.8 % (40-54); Hemoglobin 10.8 g/dL (13.0-16.5); Lymphocyte # 1.65 X10^3/ul (0.83-4.51); Lymphocyte % 17.5 % (19-41); Mean Corp Hgb Conc 32.9 g/dL (32-36); Mean Platelet Vol. 8.5 fl (6.2-12.0); Monocyte# 1.36 X10^3/uL; Monocyte% 14.4 % (0-10); NRBC Flagged by Analyzer 0 % (0-5); Neutrophil # 6.11 X10^3/uL (2.7-7.7); Neutrophil % 64.8 % (47-70); Platelet Count 221 K/mm3 (150-450); RBC Distribution Width CV 13.8 % (11.6-14.6); RBC Distribution Width SD 49.3 fl (35.1-43.9); Red Blood Count 3.38 M/mm3 (4.6-6.2); White Blood Count 9.4 K/mm3 (4.4-11.0)
[2023-01-15 07:29] LABS: Anion Gap 7 (5-15); BUN 13 mg/dL (7-18); BUN/Creat Ratio 18.7 RATIO (10-20); Calcium,Total 9.9 mg/dL (8.5-10.1); Chloride 103 mmol/L (98-107); EST Glomerular Filtration Rate 121 mL/min (>60); Est Glom Filt Rate - Afr Amer 146 mL/min (>60); Estimated Creatinine Clearance 112.05 ml/min; Glucose 104 mg/dL (74-106); Sodium Level 139 mmol/L (136-145)
--- NOTE | 2023-01-15 07:41 | PCM.PN.HOSP ---
Reason for Visit Reason for Visit: Diagnoses Ileus, unspecified (01/14/23) Dorsalgia, unspecified (01/14/23) Other symptoms and signs involving the musculoskeletal system (01/14/23) Subjective Subjective Patient is a 67-year-old gentleman recently discharged from TCU presented to the emergency department with back pain. Imaging studies obtained demonstrated L3 compression fracture Objective Data Objective Data Vital Signs: Vital Signs Temp Pulse Resp BP Pulse Ox O2 Del Method O2 Flow Rate 98.1 F 66 18 151/100 H 98 CPAP 2 01/15/23 04:22 01/15/23 04:22 01/15/23 04:22 01/15/23 04:22 01/15/23 04:22 01/15/23 04:22 01/15/23 04:22 Oxygen Flow Rate (L/min) 2 Oxygen Delivery Method CPAP Weight: 137.8 kg Body Mass Index (BMI) 42.3 Intake & Output: Intake and Output for Last 24 Hours 01/13/23 01/14/23 01/15/23 23:59 23:59 23:59 Intake Total 1400 / 1400 Output Total 550 / 550 Balance 850 / 850 Lab / Micro Data Result Diagrams: 01/15/23 06:30 01/15/23 06:30 Labs: Laboratory Results - last 24 hr 01/14/23 16:30: WBC 12.3 H, RBC 3.66 L, Hgb 11.6 L, Hct 35.7 L, MCV 97.5 H, MCH 31.7, MCHC 32.5, RDW Std Deviation 50.3 H, RDW Coeff of Justine 14.1, Plt Count 239, MPV 8.3, Immature Gran % (Auto) 0.600, Neut % (Auto) 70.5 H, Lymph % (Auto) 13.4 L, [place] % (Auto) 13.4 H, Eos % (Auto) 1.8, Baso % (Auto) 0.3, Absolute Neuts (auto) 8.7 H, Absolute Lymphs (auto) 1.65, Nucleated RBC % 0, Differential Comment SCANNED, Diff Path Review February01/14/23 16:30: Sodium 139, Potassium 3.7, Chloride 103, Carbon Dioxide 29.0, Anion Gap 7, BUN 15, Creatinine 0.87, Estim Creat Clear Calc 90.16, Est GFR (MDRD) Af Amer 113, Est GFR (MDRD) Non-Af 93, BUN/Creatinine Ratio 17.2, Glucose 108 H, Calcium 10.5 H 01/14/23 19:08: Urine Color Yellow, Urine Clarity Clear, Urine pH 6.0, Ur Specific [place] 1.015, Urine Protein 15 H, Urine Glucose (UA) Normal, Urine Ketones Negative, Urine Occult Blood 50 H, Urine Nitrite Negative, Urine Bilirubin Negative, Urine Urobilinogen Normal, Ur Leukocyte Esterase 500 H, Urine RBC 0 SEEN, Urine WBC 10-25 SEEN, Ur Squamous Epith Cells 0 SEEN, Urine Bacteria 1+, Urine Mucus 0 SEEN 01/15/23 06:30: WBC 9.4, RBC 3.38 L, Hgb 10.8 L, Hct 32.8 L, MCV 97.0 H, MCH 32.0, MCHC 32.9, RDW Std Deviation 49.3 H, RDW Coeff of Justine 13.8, Plt Count 221, MPV 8.5, Immature Gran % (Auto) 0.400, Neut % (Auto) 64.8, Lymph % (Auto) 17.5 L, [place] % (Auto) 14.4 H, Eos % (Auto) 2.5, Baso % (Auto) 0.4, Absolute Neuts (auto) 6.1, Absolute Lymphs (auto) 1.65, Nucleated RBC % 0 01/15/23 06:30: Sodium 139, Potassium 4.0, Chloride 103, Carbon Dioxide 29.0, Anion Gap 7, BUN 13, Creatinine 0.70, Estim Creat Clear Calc 112.05, Est GFR (MDRD) Af Amer 146, Est GFR (MDRD) Non-Af 121, BUN/Creatinine Ratio 18.7, Glucose 104, Calcium 9.9 Radiography Diagnostic Testing: Radiology Impression Abdomen/Pelvis CT 01/14/23 16:42 IMPRESSION: Ileus. Increased stool. Old compression fracture T7. Compression fracture L3 age-indeterminate. Electronically Signed: Chalino Ramos MD at 17:20 EDT , Physical Exam Narrative GENERAL: cooperative HEENT: Atraumatic; normocephalic EYES; Anicteric, Normal Conjunctiva NECK; supple, normal thyroid, RESPIRATORY: Diminished to auscultation CARDIOVASCULAR: Regular S1 S2, GI: soft, normoactive bowel sounds, : No Renal angle tenderness; EXTREMITIES: No edema, no clubbing, MUSCULOSKELETAL: no muscle wasting NEURO: Awake; no lateralizing signs. SKIN: No Rash PSYCH; Flat affect Assessment & Plan Assessment/Plan (1) Severe back pain: (2) Bilateral leg weakness: (3) Ileus: PLAN: Plan Patient is a 67-year-old gentleman recently discharged from TCU presented to the emergency department with back pain. Imaging studies obtained demonstrated L3 compression fracture 1. Acute back pain ? Secondary to L3 compression fracture. Patient has been admitted to regular nursing floor for symptom management. Dr. Menjivar with surgeon on-call Dr. Dennis Campos was notified by the ED recommended for patient to undergo further studies with MRI of the thoracic and lumbar spine 2. Leukocytosis ? Possibly stress related resolved 3. Hypercalcemia ? Resolved with hydration 4. Constipation ? Treated symptomatically 5. Hypertension - Blood pressure controlled, home medications continued with dose adjustment as needed 6. Known ascending aortic aneurysm ? Stable patient being monitored by primary care physician as outpatient 7. Obstructive sleep apnea ? CPAP at night 8. Class III obesity with BMI of 42.4 ? Weight loss advised. 9. Depression ? Patient is on Lexapro did continue 10. DVT prophylaxis ? SC Lovenox Time spent in the patient's overall evaluation,decision-making process, review of diagnostic data, adjustment of management, discussion with other providers, nursing nursing and ancillary staff involved in patient's care documentation, 55 Minutes Charges/Coding Visit Charges Inpatient E&M: 67156 Subs Hosp L3
--- NOTE | 2023-01-15 08:01 | CON.PCM.SX_ITS ---
Assessment & Plan Assessment/Plan (1) Ileus: PLAN: I have been consulted in conjunction with Dr. Pandya, who will independently evaluate this patient. Recommend clear liquid diet until bowel function resumes. Plan to order soap suds enemas x 2 to assist with bowel movement. Once bowel function resumes, patient may increase his diet as tolerated. It is recommended the patient continue on a stool softener while on narcotic pain medication to avoid any further bowel issues. Patient is in agreement with the above plan. He is scheduled to have an MRI of his thoracic and lumbar spine this morning. Plan to have soap suds enemas given once the patient returns from MRI. Patient has had the opportunity to ask and have questions answered. Patient verbally understands and agrees with the plan. Thank you for allowing us to participate in this patient's care. HPI Consult Data Date of Consult: 01/15/23 HPI Narrative Reason for Consultation: Abdominal ileus HPI Narrative: ZIYAD BAER, is a 67 M who presents with a 3 day history of worsening back pain and lower abdominal pressure. Patient states he had a spine fusion at the beginning of October 2022 at [facility]. Patient spent 1 month at [facility] in rehabilitation and then was transferred to [facility] TCU for 3 weeks. He was recently discharged on 01/11. Patient notes he lives at home alone, however he had a support person stay with him over the weekend. He notes he did not have the appropriate equipment at home in order to get around his home. He notes on Saturday he did not eat at all because that would send him to the bathroom and he was not capable of getting out of the wheelchair and onto the toilet due to weakness. Patient denies nausea, vomiting. He notes his normal bowel pattern is diarrhea with intermittent solid stools. He notes over the last 2-3 days he has had more constipated episodes. He continues to have flatus. He denies taking any stool softeners or other medication to assist with bowel movements due to his lack of being able to quickly get to the bathroom. He notes he took 1 stool softener 2 weeks ago. He notes he has been taking [place] every 4 hours, a muscle relaxer and gabapentin post-operative since surgery. CT scan of the abdomen/pelvis demonstrated increased stool and ileus. Other findings include old compression fracture T7 and compression fracture L3 age-in determinate. [facility] Medical History Cancer Hypertension FELA (obstructive sleep apnea) Psoriasis Home Medications amlodipine 10 mg tablet 10 mg PO QHS Blood pressure 10/14/19 [History Last Taken 10/17/20] escitalopram oxalate 20 mg tablet 10 mg PO DAILY Check with primary doctor 10/14/19 [History Last Taken 10/22/22] bupropion HCl 75 mg tablet 75 mg PO DAILY Depression 09/18/22 [History Last Taken Unknown] carvedilol 25 mg tablet 25 mg PO BID Check with primary doctor 09/18/22 [History Last Taken 10/22/22] bethanechol chloride 25 mg tablet 25 mg PO TID 30 days #90 tabs 01/07/23 [Rx Last Taken Unknown] cholestyramine (with sugar) 4 gram powder for susp in a packet 4 g PO DAILY@1000 30 days #30 ea 01/07/23 [Rx Last Taken Unknown] cyclobenzaprine 5 mg tablet 5 mg PO TID PRN PRN Muscle Spasm 30 days #90 tabs 01/07/23 [Rx Last Taken Unknown] famotidine 20 mg tablet 20 mg PO BID 30 days #60 tabs 01/07/23 [Rx Last Taken Unknown] ferrous sulfate 325 mg (65 mg iron) tablet (FeroSul) 325 mg PO DAILY@1200 30 days #30 tabs 01/07/23 [Rx Last Taken Unknown] fluticasone propionate 50 mcg/actuation nasal spray,suspension 2 spray NASAL DAILY 30 days #16 grams 01/07/23 [Rx Last Taken Unknown] gabapentin 600 mg tablet 600 mg PO TIDCM 30 days #90 tabs 01/07/23 [Rx Last Taken Unknown] hydrocodone-acetaminophen 5-325mg 5mg-325mg 1 tab PO Q4H PRN PRN Moderate to severe pain 4-10 7 days #42 tabs 01/07/23 [Rx Last Taken Unknown] lidocaine 5 % topical patch 1 patch topical 0800 30 days #30 ea 01/07/23 [Rx Last Taken Unknown] lisinopril 40 mg tablet 40 mg PO DAILY 30 days #30 tabs 01/07/23 [Rx Last Taken Unknown] magnesium chloride 64 mg (magnesium chloride) tablet,delayed release (Mag 64) 128 mg PO DAILY 30 days #60 tabs 01/07/23 [Rx Last Taken Unknown] vit A 300 mcg-C 200 mg-E 27 mg-lutein 2 mg and minerals tablet (Healthy Eyes) 1 cap PO DAILYCM #0 tabs 01/07/23 [Rx Last Taken Unknown] albuterol sulfate 90 mcg/actuation aerosol inhaler 2 puff inhalation Q6H sob 01/14/23 [History Last Taken Unknown] losartan 100 mg tablet 100 mg PO DAILY 01/14/23 [History Last Taken Unknown] Allergy/AdvReac Type Severity Reaction Status Date / Time lorazepam Allergy Other Verified 01/14/23 15:41 Penicillins Allergy Itching Verified 01/14/23 15:41 poison ever extract Allergy Itching Verified 01/14/23 15:41 tizanidine [From Zanaflex] Allergy Other Verified 01/14/23 15:41 Family History Other Brain aneurysm Heart disease Prostate CA Surgical History History of carpal tunnel surgery History of herniorrhaphy Hx of appendectomy Hx of cholecystectomy Status post laminectomy Social History household members: spouse Smoking Status: Former smoker alcohol intake: current alcohol intake frequency: 3 or more drinks per day substance use type: does not use ROS Constitutional Constitutional: Reports systems reviewed and no addt'l complaints, except as documented Eyes Eyes: Reports systems reviewed and no addt'l complaints, except as documented ENT HEENT: Reports systems reviewed and no addt'l complaints, except as documented Cardiovascular Cardiovascular: Reports systems reviewed and no addt'l complaints, except as documented Respiratory/Chest Respiratory/Chest: Reports systems reviewed and no addt'l complaints, except as documented Gastrointestinal Gastrointestinal: Reports systems reviewed and no addt'l complaints, except as documented Genitourinary Genitourinary: Reports systems reviewed and no addt'l complaints, except as documented Musculoskeletal Musculoskeletal: Reports systems reviewed and no addt'l complaints, except as documented Integumentary Integumentary: Reports systems reviewed and no addt'l complaints, except as documented Neurologic Neurologic: Reports systems reviewed and no addt'l complaints, except as documented Psychiatric Psychiatric: Reports systems reviewed and no addt'l complaints, except as documented Endocrine Endocrinology: Reports systems reviewed and no addt'l complaints, except as documented Hematologic/Lymphatic Hematologic/Lymphatic: Reports systems reviewed and no addt'l complaints, except as documented Allergic/Immunologic Allergic/Immunologic: Reports systems reviewed and no addt'l complaints, except as documented Physical Exam Const alert, oriented x3 and no apparent distress HEENT normocephalic Eyes PERRL Neck full ROM Lymph Lymphatic: no lymphadenopathy noted Resp normal respiratory effort and clear to auscultation bilaterally Cardio regular rate and regular rhythm GI soft to palpation Auscultation: hypoactive bowel sounds Palpation: tender other (Pressure sensation to the lower abdomen) no CVA tenderness Back/Spine no CVA tenderness Extremity normal to inspection Skin no rashes or lesions noted Neuro Sensorium / Orientation: awake and alert Psych mental status grossly normal and thought process normal Lab / Micro Data Result Diagrams: 01/15/23 06:30 01/15/23 06:30 Labs: Laboratory Results - last 24 hr 01/14/23 16:30: WBC 12.3 H, RBC 3.66 L, Hgb 11.6 L, Hct 35.7 L, MCV 97.5 H, MCH 31.7, MCHC 32.5, RDW Std Deviation 50.3 H, RDW Coeff of Justine 14.1, Plt Count 239, MPV 8.3, Immature Gran % (Auto) 0.600, Neut % (Auto) 70.5 H, Lymph % (Auto) 13.4 L, [place] % (Auto) 13.4 H, Eos % (Auto) 1.8, Baso % (Auto) 0.3, Absolute Neuts (auto) 8.7 H, Absolute Lymphs (auto) 1.65, Nucleated RBC % 0, Differential Comment SCANNED, Diff Path Review February foll 01/14/23 16:30: Sodium 139, Potassium 3.7, Chloride 103, Carbon Dioxide 29.0, Anion Gap 7, BUN 15, Creatinine 0.87, Estim Creat Clear Calc 90.16, Est GFR (MDRD) Af Amer 113, Est GFR (MDRD) Non-Af 93, BUN/Creatinine Ratio 17.2, Glucose 108 H, Calcium 10.5 H 01/14/23 19:08: Urine Color Yellow, Urine Clarity Clear, Urine pH 6.0, Ur Specific [place] 1.015, Urine Protein 15 H, Urine Glucose (UA) Normal, Urine Ketones Negative, Urine Occult Blood 50 H, Urine Nitrite Negative, Urine Bilirubin Negative, Urine Urobilinogen Normal, Ur Leukocyte Esterase 500 H, Urine RBC 0 SEEN, Urine WBC 10-25 SEEN, Ur Squamous Epith Cells 0 SEEN, Urine Bacteria 1+, Urine Mucus 0 SEEN 01/15/23 06:30: WBC 9.4, RBC 3.38 L, Hgb 10.8 L, Hct 32.8 L, MCV 97.0 H, MCH 32.0, MCHC 32.9, RDW Std Deviation 49.3 H, RDW Coeff of Justine 13.8, Plt Count 221, MPV 8.5, Immature Gran % (Auto) 0.400, Neut % (Auto) 64.8, Lymph % (Auto) 17.5 L , [place] % (Auto) 14.4 H, Eos % (Auto) 2.5, Baso % (Auto) 0.4, Absolute Neuts (auto) 6.1, Absolute Lymphs (auto) 1.65, Nucleated RBC % 0 01/15/23 06:30: Sodium 139, Potassium 4.0, Chloride 103, Carbon Dioxide 29.0, Anion Gap 7, BUN 13, Creatinine 0.70, Estim Creat Clear Calc 112.05, Est GFR (MDRD) Af Amer 146, Est GFR (MDRD) Non-Af 121, BUN/Creatinine Ratio 18.7, Glucose 104, Calcium 9.9 Radiology Impression Abdomen/Pelvis CT 01/14/23 16:42 IMPRESSION: Ileus. Increased stool. Old compression fracture T7. Compression fracture L3 age-indeterminate. Electronically Signed: Chalino Ramos MD at 17:20 EDT , Charges/Coding Visit Charges OBSV E&M: 13829 Observ/hosp same date L2
[2023-01-15] MEDS: Escitalopram Oxalate 10 MG Tablet PO (08:19)
[2023-01-15] MEDS: Acetaminophen 325 MG Tablet 650 MG PO (08:19)
[2023-01-15] MEDS: Senna/Docusate Sodium 1 Tablet 2 TABLET PO (08:20)
[2023-01-15] MEDS: 0.9% Saline Lock 10 ML Syringe IV ×5 (08:20→21:19)
[2023-01-15] MEDS: Ferrous Sulfate 325 MG Tablet PO (08:20)
[2023-01-15] MEDS: buPROPion 75 MG Tablet PO (08:21)
[2023-01-15] MEDS: Morphine 2 MG/ML Syringe IV ×3 (08:21→17:02)
--- NOTE | 2023-01-15 08:30 | MRI_ITS ---
STUDY: MRI LUMBAR SPINE WITHOUT CONTRAST REASON FOR EXAM: Male, 67 years old. Bilateral lower legs weakness TECHNIQUE: Standardized fat and water weighted pulse sequences were obtained in the sagittal and axial planes. COMPARISON: MRI lumbar spine without contrast 10/30/2022. FINDINGS: T11-T12: (Sagittal only). Normal endplates. Normal disc height, hydration and morphology. Normal central canal and bilateral intervertebral neural foramina. T12-L1: (Sagittal only). Normal endplates. Mild disc space height narrowing. No ventral extradural defect. Normal central canal and bilateral intervertebral neural foramina. This level is unchanged. Normal lumbar lordosis. There is no substantial scoliosis. Normal conus medullaris that terminates at the lower L1 vertebral body level. L1-2: Normal endplates. Normal disc height, hydration and morphology. Normal bilateral facet joints. Normal central canal and bilateral lateral recesses. Normal bilateral intervertebral neural foramina. L2-3: Normal L2 inferior endplate. Moderate recent central compression fracture of the upper L3 vertebral body causing mild edema of the vertebral marrow underneath the central compression fracture and 50% loss of the central vertebral body height. This accounts for the increased central disc space height. No ventral extradural defect. Mild bilateral degenerative facet arthropathy. Prominent dorsal epidural lipomatosis. Moderate central canal stenosis with an AP canal diameter of 8 mm. Normal bilateral lateral recesses. Normal bilateral intervertebral neural foramina. L3-4: Normal endplates. Normal disc height, hydration and morphology. Moderate right degenerative facet arthropathy. Mild left degenerative facet arthropathy. Prominent dorsal epidural lipomatosis. Pronounced central canal stenosis with an AP canal diameter of 3 mm. Normal bilateral lateral recesses. Normal bilateral intervertebral neural foramina. L4-5: Minimal Modic type II degenerative vertebral marrow fat infiltration underneath the vertebral endplates. Moderate disc space height narrowing. Mild degenerative retrolisthesis of L4 on L5. Mild bilateral degenerative facet arthropathy. Prominent dorsal epidural lipomatosis. Moderate central canal stenosis with an AP canal diameter of 7 mm. Normal bilateral lateral recesses. Mild stenosis of the bilateral intervertebral neural foramina. L5-S1: Normal endplates. Normal disc height and hydration. Mild degenerative retrolisthesis of L5 on S1. Mild asymmetric degenerative facet arthropathy. Normal central canal and bilateral lateral recesses. Mild stenosis of the left intervertebral neural foramen. Normal right intervertebral neural foramen. Normal visualized sacral ala. Normal visualized paraspinous soft tissue structures. MRI/Spine Lumbar (Routine) IMPRESSION: 1. Moderate recent central compression fracture of the upper L3 vertebral body causing increased central disc space height and nearly 50% loss of the central vertebral body height. This is a new finding when compared to 10/30/2022. This is feasible for kyphoplasty if patient has debilitating back pain referrable to this site. 2. Severe central canal stenosis at L3-L4 disc space level with an AP canal diameter of 3 mm, previously 4.7 mm. This is secondary to developmentally short pedicles and prominent dorsal epidural lipomatosis. 3. Moderate central canal stenosis at L4-L5 disc space level with an AP canal diameter of 7 mm secondary to developmentally short pedicles, prominent dorsal epidural lipomatosis and mild degenerative retrolisthesis of L4 on L5. This level is unchanged. 4. Moderate central canal stenosis at L2-L3 disc space level with an AP canal diameter of 8 mm, previously 9 mm. This is secondary to developmentally short pedicles and prominent dorsal epidural lipomatosis. 5. Mild degenerative retrolisthesis of L5 on S1 and mild stenosis of the left L5-S1 intervertebral neural foramen. This level is unchanged. Electronically Signed: Wilfredo Aiken MD at 11:34 EDT ,
[2023-01-15 08:41] LABS: PTHIN 7.5 pg/mL (18.4-80.1)
--- NOTE | 2023-01-15 09:15 | MRI_ITS ---
STUDY: MRI THORACIC SPINE WITHOUT CONTRAST REASON FOR EXAM: Male, 67 years old. Bilateral lower legs weakness TECHNIQUE: Standardized fat and water weighted pulse sequences were obtained in the sagittal and axial planes. COMPARISON: CTA chest with and without contrast 09/30/2022, MRI thoracic spine without contrast 10/22/2022 and MRI thoracic spine without contrast 10/30/2022. FINDINGS: Mild increase thoracic kyphosis of the thoracic spine. There is no substantial scoliosis. T1-2, T2-3, T3-4, T4-5, T5-6, T6-7, T7-8, T8-9, T9-10, T10-11, T11-12: Abnormal bone edema with mild loss of the T5 vertebral body height due to recent compression fracture. Pronounced compression fracture of the T7 vertebral body with resolution of the retropulsed fragment following posterior fusion using pedicular screws at T5, T6, T8 and T9 and vertical rods causing signal distortion artifacts. Postsurgical absence of the spinous processes and lamina of T6 and T7. Normal remaining vertebral body heights. Mild increase disc space heights at T4-T5 and T5-T6 disc space levels due to central compression fracture of the T5 vertebral body. Normal remaining thoracic disc space heightsimprovement of central canal stenosis. Normal intervertebral neural foramina. Improvement of the posterior displacement of the thoracic spinal cord due to the retropulsion of the T7 vertebral body. No obvious intramedullary high signal intensity of the thoracic spinal cord although there are multiple sacral distortion artifacts. Normal conus medullaris that terminates at the lower L1 vertebral body level. The soft tissue structures are unremarkable. MRI/Spine Thoracic (Routine) IMPRESSION: 1. Mild recent compression fracture of the T5 vertebral body without retropulsion when compared to 10/30/2022. 2. Pronounced old T7 compression fracture with resolution of the retropulsed fragment and the posterior displacement of the thoracic spinal cord following posterior laminectomy decompression and fusion using pedicular screws at T5, T6, T8 and T9 and vertical rods. 3. Single distortion artifacts on the thoracic spinal cord due to pedicular screws and rods. 4. No other additional findings or changes. Electronically Signed: Wilfredo Aiken MD at 11:21 EDT ,
--- NOTE | 2023-01-15 09:49 | CASEMGMT ---
TONY CM in to complete assessment, pt is currently off of the floor at this time.
[2023-01-15] MEDS: Gabapentin 600 MG Tablet PO ×3 (11:02→23:16)
[2023-01-15] MEDS: Famotidine 200 MG/20 ML MDV 20 MG in 0.9% Normal Saline (Pres. free 8 ML 300 MG IV ×2 (11:02→21:19)
[2023-01-15] MEDS: Polyethylene Glycol 3350 17 GM PACKET PO (11:02)
[2023-01-15] MEDS: 0.9% Normal Saline 1,000 ML 75 ML IV ×2 (11:11→21:14)
[2023-01-15] MEDS: Enalaprilat 1.25 MG/ML Vial IV ×2 (12:10→17:25)
--- NOTE | 2023-01-15 12:51 | CHAPLAIN ---
Type of Pastoral Visit _x__ Initial Visit ___ Follow-up Visit ___ On-call Visit ___ General Patient Visit ___ Spiritual Assessment ___ Family Conference ___ Bereavement ___ Rapid Response ___ Code Blue ___ Other (describe below) Pastoral Care Referral From _x__ Patient ___ Family ___ Nurse ___ Physician ___ Payroll Associate ___ Electric Locomotive Firer/Fireman ___ Other (describe below) Sacrament/Intervention _x__ Active listening ___ Anointing ___ Alevism ___ Bereavement ___ Communion ___ Cindi exploration ___ ___ Life review ___ Prayer ___ Reconciliation ___ Sacrament of Sick _x__ Supportive presence ___ Wedding ___ Other (describe below) Pastoral Comments patient was seen in TCU recently; offer of support and concern for patient who has returned to hospital; pt indicates disappointment in ongoing health issues and desire to see issues improve; pt has needs for bathroom and visit was short; offer of ongoing support as pt desires
--- NOTE | 2023-01-15 13:05 | CASEMGMT ---
TONY JOVEL Assessment: Face to Face with pt for initial transition planning/care coordination assessment. TONY JOVEL introduced self and role at [facility], pt voices understanding and consents to assessment. Pt is A/O x4 and answers all questions appropriately at this time. Pt sitting up in chair and just worked with therapy. Therapy states pt will need to receive further therapy prior to returning home. Care providers, pharmacy, and demographics verified/updated. Admitting Dx: lower back pain, debility PCP:Eri Specialists:Nellie, neurosurgery; Jaky, clinical research specialist; uro, pt cannot remember name Preferred Pharmacy: [facility] Insurance: [facility] Prescription Benefit: yes LNOK: Andre Santa, brother; Adrianna Burgess, friend Living Arrangements: Pt lives alone in a two story home with 2 steps to enter with a rail. Pt reports he has concerns at home as he was dc'd from SNF without equipment that properly fits him. Transportation: Pt friend Lidia is able to transport him until he can drive again. DME/HHC/SNF: Pt has a FWW that reports is too small and a wheelchair that is bariatric but does not fit through any of his doorways. Pt also has a CPAP. Pt states [facility] came out to his home yesterday to see him and then sent him into the ER. Pt has been to [facility]. Pt reports he is aware that he needs further therapy prior to returning home and is agreeable to this. Updated SW. Pt states no further concerns/needs. CM to follow. Advised pt to ask CM if any further question/concerns/needs arise, voices understanding. Pt Goal: SNF Plan: SNF
[2023-01-15 13:24] LABS: Pathologist Review Reviewed
--- NOTE | 2023-01-15 13:28 | CASEMGMT ---
TONY CM in to discuss KOEHLER form with patient. RN CM explained KOEHLER form, patient voiced understanding. Pt signed form and filed in chart. Pt provided with a copy of signed KOEHLER form. Patient had no further questions or concerns at this time.
--- NOTE | 2023-01-15 14:32 | CASEMGMT ---
Addendum entered by Ember Scott 01/15/23 15:42: Referrals sent to [facility] and [facility]. Addendum entered by Ember Scott 01/15/23 15:34: SW met with pt. pt gave next two choices of [facility] and [facility]. SW to send referral to these choices. Addendum entered by Ember Scott 01/15/23 15:29: [facility] responded that no beds would be open until mid next week, which will not work with pt discharge plan. Jennifer also informed MMO cut pt from TCU and Jennifer does not think pt has Medicare days for rehab. SW will revisit pt and discuss alternative SNF choices as pt has had worsening symptoms since leaving [facility] and therapy is recommending additional skilled therapy. Original Note: Social Work? SW in to meet with pt following update from TONY JOVEL that pt will need placement at nursing facility. SW introduced self and role at the hospital. Pt agreeable to discussing discharge planning. A list of SNF providers including quality and resource use data consistent with the patient?s preferred geographic region, medical needs, and insurance network were provided from the [facility] Guide. Pt reviewed list, informed that had just d/c from [facility] five days ago and would like to go back if a bed is available. Pt shared is not sure how many Medicare days are left for insurance. EBONIE sent referral to Jennifer at [facility] and asked about Medicare days. Pt does not have a secondary insurance. PLAN: [facility], pending acceptance and precert TEJAS Mcintosh?
--- NOTE | 2023-01-15 15:28 | CON.PCM.OR_ITS ---
HPI Consult Data Date of Consult: 01/15/23 HPI Narrative Reason for Consultation: Back pain HPI Narrative: Patient is a 67-year-old male who has been admitted for back pain and difficulty with ambulation. I have seen this patient in the past on consultation at the hospital at which time he had a thoracic compression fracture with stenosis and I did perform a thoracic laminectomy on him. He subsequently developed increasing weakness in the lower extremities and was referred to [facility] where a thoracic fusion was performed spanning his prior compression fracture. He was subsequently admitted to rehab where he has been for the past month. He was discharged home prior to this weekend. While at home he states that he was having difficulty with mobility. He was having some complaints of low back pain and weakness in the lower extremities and he subsequently presented to the ER where he was seen and evaluated and admitted. Imaging studies of the thoracic and lumbar spine were performed and orthospine has been consulted for saige luation. He is currently lying in bed resting comfortably with no complaints of pain. He does have pain in the lumbosacral region with movement. He denies any other acute numbness tingling weakness or changes in bowel or bladder function. He does state that his legs feel weak when he tries to ambulate independently. [facility] Medical History Cancer Hypertension FELA (obstructive sleep apnea) Psoriasis Home Medications amlodipine 10 mg tablet 10 mg PO QHS Blood pressure 10/14/19 [History Last Taken 10/17/20] escitalopram oxalate 20 mg tablet 10 mg PO DAILY Check with primary doctor 10/14/19 [History Last Taken 10/22/22] bupropion HCl 75 mg tablet 75 mg PO DAILY Depression 09/18/22 [History Last Taken Unknown] carvedilol 25 mg tablet 25 mg PO BID Check with primary doctor 09/18/22 [History Last Taken 10/22/22] bethanechol chloride 25 mg tablet 25 mg PO TID 30 days #90 tabs 01/07/23 [Rx Last Taken Unknown] cholestyramine (with sugar) 4 gram powder for susp in a packet 4 g PO DAILY@1000 30 days #30 ea 01/07/23 [Rx Last Taken Unknown] cyclobenzaprine 5 mg tablet 5 mg PO TID PRN PRN Muscle Spasm 30 days #90 tabs 01/07/23 [Rx Last Taken Unknown] famotidine 20 mg tablet 20 mg PO BID 30 days #60 tabs 01/07/23 [Rx Last Taken Unknown] ferrous sulfate 325 mg (65 mg iron) tablet (FeroSul) 325 mg PO DAILY@1200 30 days #30 tabs 01/07/23 [Rx Last Taken Unknown] fluticasone propionate 50 mcg/actuation nasal spray,suspension 2 spray NASAL DAILY 30 days #16 grams 01/07/23 [Rx Last Taken Unknown] gabapentin 600 mg tablet 600 mg PO TIDCM 30 days #90 tabs 01/07/23 [Rx Last Taken Unknown] hydrocodone-acetaminophen 5-325mg 5mg-325mg 1 tab PO Q4H PRN PRN Moderate to severe pain 4-10 7 days #42 tabs 01/07/23 [Rx Last Taken Unknown] lidocaine 5 % topical patch 1 patch topical 0800 30 days #30 ea 01/07/23 [Rx Last Taken Unknown] lisinopril 40 mg tablet 40 mg PO DAILY 30 days #30 tabs 01/07/23 [Rx Last Taken Unknown] magnesium chloride 64 mg (magnesium chloride) tablet,delayed release (Mag 64) 128 mg PO DAILY 30 days #60 tabs 01/07/23 [Rx Last Taken Unknown] vit A 300 mcg-C 200 mg-E 27 mg-lutein 2 mg and minerals tablet (Healthy Eyes) 1 cap PO DAILYCM #0 tabs 01/07/23 [Rx Last Taken Unknown] albuterol sulfate 90 mcg/actuation aerosol inhaler 2 puff inhalation Q6H sob 01/14/23 [History Last Taken Unknown] losartan 100 mg tablet 100 mg PO DAILY 01/14/23 [History Last Taken Unknown] Allergy/AdvReac Type Severity Reaction Status Date / Time lorazepam Allergy Other Verified 01/14/23 15:41 Penicillins Allergy Itching Verified 01/14/23 15:41 poison ever extract Allergy Itching Verified 01/14/23 15:41 tizanidine [From Zanaflex] Allergy Other Verified 01/14/23 15:41 Family History Other Brain aneurysm Heart disease Prostate CA Surgical History History of carpal tunnel surgery History of herniorrhaphy Hx of appendectomy Hx of cholecystectomy Status post laminectomy Social History household members: spouse Smoking Status: Former smoker alcohol intake: current alcohol intake frequency: 3 or more drinks per day substance use type: does not use Vital Signs Vital Signs Vital Signs: 01/14/23 15:38 01/14/23 21:11 01/14/23 22:22 Temperature 96.9 F L 97.9 F 97.4 F L Temperature Source Temporal Temporal Oral Pulse Rate 74 70 75 Respiratory Rate 18 18 17 Respiratory Effort Respiratory Depth Respiratory Pattern Blood Pressure 154/83 H 143/96 H 146/89 H Blood Pressure [BP] Blood Pressure Mean 106 111 108 Blood Pressure Mean [BP] Blood Pressure Source Monitor Blood Pressure Source [BP] Blood Pressure Position Semi-Fowlers Blood Pressure Position [BP] Blood Pressure Location Right Forearm Blood Pressure Location [BP] Pulse Ox 92 94 96 Oxygen Delivery Method Room Air Room Air Room Air Oxygen Flow Rate (L/min) 01/14/23 20:24 01/14/23 22:08 01/15/23 04:22 Temperature 98.1 F Temperature Source Oral Pulse Rate 66 Respiratory Rate 18 Respiratory Effort Normal Non-Labored Respiratory Depth Normal Respiratory Pattern Normal Blood Pressure 151/100 H Blood Pressure [BP] Blood Pressure Mean 117 Blood Pressure Mean [BP] Blood Pressure Source Monitor Blood Pressure Source [BP] Blood Pressure Position Semi-Fowlers Blood Pressure Position [BP] Blood Pressure Location Right Arm Blood Pressure Location [BP] Pulse Ox 89 98 Oxygen Delivery Method Room Air Nasal Cannula CPAP Oxygen Flow Rate (L/min) 2 2 01/15/23 04:08 01/15/23 07:54 01/15/23 12:11 Temperature 99.2 F H Temperature Source Oral Pulse Rate 65 80 Respiratory Rate 20 H Respiratory Effort Normal Non-Labored Respiratory Depth Normal Respiratory Pattern Normal Blood Pressure 141/62 H Blood Pressure [BP] 145/76 H Blood Pressure Mean 88 Blood Pressure Mean [BP] 99 Blood Pressure Source Monitor Blood Pressure Source [BP] Monitor Blood Pressure Position Supine Blood Pressure Position [BP] Supine Blood Pressure Location Right Forearm Blood Pressure Location [BP] Right Forearm Pulse Ox 97 Oxygen Delivery Method Nasal Cannula Nasal Cannula Oxygen Flow Rate (L/min) 2 01/15/23 13:41 01/15/23 13:47 01/15/23 14:03 Temperature 98.3 F Temperature Source Oral Pulse Rate 72 Respiratory Rate 18 Respiratory Effort Normal Respiratory Depth Respiratory Pattern Blood Pressure 139/78 H Blood Pressure [BP] Blood Pressure Mean 98 Blood Pressure Mean [BP] Blood Pressure Source Monitor Blood Pressure Source [BP] Blood Pressure Position Sitting Blood Pressure Position [BP] Blood Pressure Location Right Forearm Blood Pressure Location [BP] Pulse Ox 95 95 Oxygen Delivery Method Room Air Oxygen Flow Rate (L/min) Weight Weight: 303 lb 12.752 oz Body Mass Index (BMI) 42.3 Physical Exam Const alert, oriented x3 and no apparent distress General Appearance: cooperative, comfortable and well kempt HEENT normocephalic and head/scalp atraumatic Eyes EOMs intact bilaterally and conjunctivae normal Neck full ROM General: normal visual inspection Chest inspection of chest normal and palpation of chest normal Resp normal respiratory effort and normal air movement Effort and Inspection: able to speak in complete sentences Cardio regular rate and peripheral pulses 2+ throughout GI soft to palpation, non-tender and non-distended Back/Spine Back/Spine Narrative: No significant tenderness of the cervical thoracic or lumbar spine Cervical Spine: cervical ROM normal Thoracic Spine / Upper Back: normal to inspection Lumbar Spine / Lower Back: normal to inspection Extremity normal to inspection, full ROM, normal capillary refill and no calf tenderness Skin no rashes or lesions noted Skin Narrative: Vertical scar in the thoracic midline is healing well. No tenderness erythema drainage or fluctuance General Skin Exam: no breakdown Neuro oriented x3, CN's II-XII intact bilaterally, moves all extremities, no focal motor deficits, no sensory deficits noted and deep tendon reflexes 2+ bilaterally Motor Exam: strength 5/5 throughout and muscle tone normal throughout Lab / Micro Data Result Diagrams: 01/15/23 06:30 01/15/23 06:30 Labs: Laboratory Results - last 24 hr 01/14/23 16:30: WBC 12.3 H, RBC 3.66 L, Hgb 11.6 L, Hct 35.7 L, MCV 97.5 H, MCH 31.7, MCHC 32.5, RDW Std Deviation 50.3 H, RDW Coeff of Justine 14.1, Plt Count 239, MPV 8.3, Immature Gran % (Auto) 0.600, Neut % (Auto) 70.5 H, Lymph % (Auto) 13.4 L, [place] % (Auto) 13.4 H, Eos % (Auto) 1.8, Baso % (Auto) 0.3, Absolute Neuts (auto) 8.7 H, Absolute Lymphs (auto) 1.65, Nucleated RBC % 0, Differential Comment SCANNED, Diff Path Review Reviewed 01/14/23 16:30: Sodium 139, Potassium 3.7, Chloride 103, Carbon Dioxide 29.0, Anion Gap 7, BUN 15, Creatinine 0.87, Estim Creat Clear Calc 90.16, Est GFR (MDRD) Af Amer 113, Est GFR (MDRD) Non-Af 93, BUN/Creatinine Ratio 17.2, Glucose 108 H, Calcium 10.5 H 01/14/23 19:08: Urine Color Yellow, Urine Clarity Clear, Urine pH 6.0, Ur Specific [place] 1.015, Urine Protein 15 H, Urine Glucose (UA) Normal, Urine Ketones Negative, Urine Occult Blood 50 H, Urine Nitrite Negative, Urine Bilirubin Negative, Urine Urobilinogen Normal, Ur Leukocyte Esterase 500 H, Urine RBC 0 SEEN, Urine WBC 10-25 SEEN, Ur Squamous Epith Cells 0 SEEN, Urine Bacteria 1+, Urine Mucus 0 SEEN 01/15/23 06:30: WBC 9.4, RBC 3.38 L, Hgb 10.8 L, Hct 32.8 L, MCV 97.0 H, MCH 32.0, MCHC 32.9, RDW Std Deviation 49.3 H, RDW Coeff of Justine 13.8, Plt Count 221, MPV 8.5, Immature Gran % (Auto) 0.400, Neut % (Auto) 64.8, Lymph % (Auto) 17.5 L, [place] % (Auto) 14.4 H, Eos % (Auto) 2.5, Baso % (Auto) 0.4, Absolute Neuts (auto) 6.1, Absolute Lymphs (auto) 1.65, Nucleated RBC % 0 01/15/23 06:30: Sodium 139, Potassium 4.0, Chloride 103, Carbon Dioxide 29.0, Anion Gap 7, BUN 13, Creatinine 0.70, Estim Creat Clear Calc 112.05, Est GFR (MDRD) Af Amer 146, Est GFR (MDRD) Non-Af 121, BUN/Creatinine Ratio 18.7, Glucose 104, Calcium 9.9 03/21/23 06:30: PTH Intact 7.5 L Micro: Microbiology 01/14/23 20:30 Urine, Clean Catch Urine Culture - Preliminary GPC Poss Enterococcus sp Radiology Impression Abdomen/Pelvis CT 01/14/23 16:42 IMPRESSION: Ileus. Increased stool. Old compression fracture T7. Compression fracture L3 age-indeterminate. Electronically Signed: Chalino Ramos MD at 17:20 EDT , Lumbar Spine MRI 01/15/23 08:30 IMPRESSION: 1. Moderate recent central compression fracture of the upper L3 vertebral body causing increased central disc space height and nearly 50% loss of the central vertebral body height. This is a new finding when compared to 10/30/2022. This is feasible for kyphoplasty if patient has debilitating back pain referrable to this site. 2. Severe central canal stenosis at L3-L4 disc space level with an AP canal diameter of 3 mm, previously 4.7 mm. This is secondary to developmentally short pedicles and prominent dorsal epidural lipomatosis. 3. Moderate central canal stenosis at L4-L5 disc space level with an AP canal diameter of 7 mm secondary to developmentally short pedicles, prominent dorsal epidural lipomatosis and mild degenerative retrolisthesis of L4 on L5. This level is unchanged. 4. Moderate central canal stenosis at L2-L3 disc space level with an AP canal diameter of 8 mm, previously 9 mm. This is secondary to developmentally short pedicles and prominent dorsal epidural lipomatosis. 5. Mild degenerative retrolisthesis of L5 on S1 and mild stenosis of the left L5-S1 intervertebral neural foramen. This level is unchanged. Electronically Signed: Wilfredo Aiken MD at 11:34 EDT , Thoracic Spine MRI 01/15/23 09:15 IMPRESSION: 1. Mild recent compression fracture of the T5 vertebral body without retropulsion when compared to 10/30/2022. 2. Pronounced old T7 compression fracture with resolution of the retropulsed fragment and the posterior displacement of the thoracic spinal cord following posterior laminectomy decompression and fusion using pedicular screws at T5, T6, T8 and T9 and vertical rods. 3. Single distortion artifacts on the thoracic spinal cord due to pedicular screws and rods. 4. No other additional findings or changes. Electronically Signed: Wilfredo Aiken MD at 11:21 EDT , Assessment & Plan Assessment/Plan (1) Back pain: PLAN: I had a lengthy discussion with the patient. I reviewed his imaging with him. Thoracic and lumbar MRI performed 01/15/2023 shows mild degenerative martin nges. No significant areas of central canal stenosis. Previous surgery site shows all hardware intact and in acceptable alignment. The radiologist has commented on possible acute compression of L3, which I feel is more consistent with a Schmorl's node. No surgery recommended. I recommend continued pain control and mobilization as tolerated. The patient can follow-up with me as needed. He understands and agrees with the treatment plan
[2023-01-15] MEDS: Cholestyramine/Sucrose 4 GM/PACKET PO (15:56)
[2023-01-15] MEDS: HYDROcodone Bitartrate/Apap 5/325 Tablet PO (21:19)
[2023-01-16 00:45] VITALS: BP 151/85; PULSE 62
[2023-01-16] MEDS: Enalaprilat 1.25 MG/ML Vial IV ×4 (00:50→17:43)
[2023-01-16] MEDS: 0.9% Saline Lock 10 ML Syringe IV ×4 (00:50→21:44)
[2023-01-16 06:35] LABS: Absolute Lymphocyte Count 1.58 X10^3/uL (0.83-4.51); Absolute Neutrophil Count 4.7 X10^3/uL (2.0-7.7); Basophil# 0.03 X10^3/uL; Basophil% 0.4 % (0-1); Eosinophil# 0.21 X10^3/uL; Eosinophils% 2.7 % (0-5); Hematocrit 34.2 % (40-54); Hemoglobin 10.8 g/dL (13.0-16.5); Lymphocyte # 1.58 X10^3/ul (0.83-4.51); Lymphocyte % 20.5 % (19-41); Mean Corp Hgb Conc 31.6 g/dL (32-36); Mean Corpuscular Volume 98.3 fL (80-94); Mean Platelet Vol. 8.6 fl (6.2-12.0); Monocyte# 1.18 X10^3/uL; Monocyte% 15.3 % (0-10); NRBC Flagged by Analyzer 0 % (0-5); Neutrophil # 4.65 X10^3/uL (2.7-7.7); Neutrophil % 60.5 % (47-70); Platelet Count 223 K/mm3 (150-450); RBC Distribution Width CV 13.9 % (11.6-14.6); RBC Distribution Width SD 50.1 fl (35.1-43.9); Red Blood Count 3.48 M/mm3 (4.6-6.2); White Blood Count 7.7 K/mm3 (4.4-11.0)
[2023-01-16 06:37] VITALS: BP 153/84; PULSE 72; RESP 18; TEMP 37.3; O2SAT 92
[2023-01-16] MEDS: HYDROcodone Bitartrate/Apap 5/325 Tablet PO ×3 (06:46→21:44)
[2023-01-16] MEDS: Gabapentin 600 MG Tablet PO ×3 (06:46→21:43)
[2023-01-16 06:55] LABS: Anion Gap 6 (5-15); BUN 9 mg/dL (7-18); Calcium,Total 10.3 mg/dL (8.5-10.1); Chloride 106 mmol/L (98-107); Creatinine, Serum 0.69 mg/dL (0.70-1.30); EST Glomerular Filtration Rate 122 mL/min (>60); Est Glom Filt Rate - Afr Amer 147 mL/min (>60); Estimated Creatinine Clearance 113.68 ml/min; Glucose 105 mg/dL (74-106); Magnesium 1.8 mg/dL (1.6-2.6); Potassium 3.7 mmol/L (3.5-5.1); Sodium Level 142 mmol/L (136-145)
--- NOTE | 2023-01-16 07:55 | PN.HOSP_ITS ---
Reason for Visit Reason for Visit: Diagnoses Ileus, unspecified (01/14/23) Dorsalgia, unspecified (01/14/23) Other symptoms and signs involving the musculoskeletal system (01/14/23) Subjective Subjective Patient seen pain relatively controlled. Results of MRI reviewed. Awaiting transfer to a [place] [facility] facility Objective Data Objective Data Vital Signs: Vital Signs Temp Pulse Resp BP Pulse Ox O2 Del Method O2 Flow Rate 99.2 F H 72 18 153/84 H 92 Room Air 2 01/16/23 06:37 01/16/23 06:37 01/16/23 06:37 01/16/23 06:37 01/16/23 06:37 01/16/23 06:37 01/15/23 04:22 Oxygen Flow Rate (L/min) 2 Oxygen Delivery Method Room Air Weight: 137.8 kg Body Mass Index (BMI) 42.3 Intake & Output: Intake and Output for Last 24 Hours 01/14/23 01/15/23 01/16/23 23:59 23:59 23:59 Intake Total 3572.50 / 3572.50 Output Total 5300 / 5300 1475 / 1475 Balance -1727.50 / -1727.50 -1475 / -1475 Lab / Micro Data Result Diagrams: 01/16/23 05:55 01/16/23 05:55 Labs: Laboratory Results - last 24 hr 01/14/23 16:30: Diff Path Review Reviewed 01/15/23 06:30: PTH Intact 7.5 L 01/16/23 05:55: WBC 7.7, RBC 3.48 L, Hgb 10.8 L, Hct 34.2 L, MCV 98.3 H, MCH 31.0, MCHC 31.6 L, RDW Std Deviation 50.1 H, RDW Coeff of Justine 13.9, Plt Count 223, MPV 8.6, Immature Gran % (Auto) 0.600, Neut % (Auto) 60.5, Lymph % (Auto) 20.5, [place] % (Auto) 15.3 H, Eos % (Auto) 2.7, Baso % (Auto) 0.4, Absolute Neuts (auto) 4.7, Absolute Lymphs (auto) 1.58, Nucleated RBC % 0 01/16/23 05:55: Sodium 142, Potassium 3.7, Chloride 106, Carbon Dioxide 30.0, Anion Gap 6, BUN 9, Creatinine 0.69 L, Estim Creat Clear Calc 113.68, Est GFR (MDRD) Af Amer 147, Est GFR (MDRD) Non-Af 122, BUN/Creatinine Ratio 13.0, Glucose 105, Calcium 10.3 H, Magnesium 1.8 Micro: Microbiology 01/14/23 20:30 Urine, Clean Catch Urine Culture - Preliminary GPC Poss Enterococcus sp Radiography Diagnostic Testing: Radiology Impression Lumbar Spine MRI 01/15/23 08:30 IMPRESSION: 1. Moderate recent central compression fracture of the upper L3 vertebral body causing increased central disc space height and nearly 50% loss of the central vertebral body height. This is a new finding when compared to 10/30/2022. This is feasible for kyphoplasty if patient has debilitating back pain referrable to this site. 2. Severe central canal stenosis at L3-L4 disc space level with an AP canal diameter of 3 mm, previously 4.7 mm. This is secondary to developmentally short pedicles and prominent dorsal epidural lipomatosis. 3. Moderate central canal stenosis at L4-L5 disc space level with an AP canal diameter of 7 mm secondary to developmentally short pedicles, prominent dorsal epidural lipomatosis and mild degenerative retrolisthesis of L4 on L5. This level is unchanged. 4. Moderate central canal stenosis at L2-L3 disc space level with an AP canal diameter of 8 mm, previously 9 mm. This is secondary to developmentally short pedicles and prominent dorsal epidural lipomatosis. 5. Mild degenerative retrolisthesis of L5 on S1 and mild stenosis of the left L5-S1 intervertebral neural foramen. This level is unchanged. Electronically Signed: Wilfredo Aiken MD at 11:34 EDT , Thoracic Spine MRI 01/15/23 09:15 IMPRESSION: 1. Mild recent compression fracture of the T5 vertebral body without retropulsion when compared to 10/30/2022. 2. Pronounced old T7 compression fracture with resolution of the retropulsed fragment and the posterior displacement of the thoracic spinal cord following posterior laminectomy decompression and fusion using pedicular screws at T5, T6, T8 and T9 and vertical rods. 3. Single distortion artifacts on the thoracic spinal cord due to pedicular screws and rods. 4. No other additional findings or changes. Electronically Signed: Wilfredo Aiken MD at 11:21 EDT , Physical Exam Narrative GENERAL: cooperative HEENT: Atraumatic; normocephalic EYES; Anicteric, Normal Conjunctiva NECK; supple, normal thyroid, RESPIRATORY: Diminished to auscultation CARDIOVASCULAR: Regular S1 S2, GI: soft, normoactive bowel sounds, : No Renal angle tenderness; EXTREMITIES: No edema, no clubbing, MUSCULOSKELETAL: no muscle wasting NEURO: Awake; no lateralizing signs. SKIN: No Rash PSYCH; Flat affect Assessment & Plan Assessment/Plan (1) Severe back pain: (2) Bilateral leg weakness: PLAN: Plan Patient is a 67-year-old gentleman recently discharged from TCU presented to the emergency department with back pain. Imaging studies obtained demonstrated L3 compression fracture 1. Acute back pain ? Secondary to L3 compression fracture. Patient has been admitted to regular nursing floor for symptom management. Dr. Menjivar with surgeon on-call Dr. Dennis Campos was notified by the ED recommended for patient to undergo further studies with MRI of the thoracic and lumbar spine 2. Leukocytosis ? Possibly stress related resolved 3. Hypercalcemia ? Resolved with hydration 4. Constipation ? Treated symptomatically 5. Hypertension - Blood pressure controlled, home medications continued with dose adjustment as needed 6. Known ascending aortic aneurysm ? Stable patient being monitored by primary care physician as outpatient 7. Obstructive sleep apnea ? CPAP at night 8. Class III obesity with BMI of 42.4 ? Weight loss advised. 9. Depression ? Patient is on Lexapro did continue 10. DVT prophylaxis ? SC Lovenox 11. Physical deconditioning - Requested for PT OT eval and [employer] social worker to assist with discharge planning Time spent in the patient's overall evaluation,decision-making process, review of diagnostic data, adjustment of management, discussion with other providers, nursing nursing and ancillary staff involved in patient's care documentation, 35 Minutes Charges/Coding Visit Charges Inpatient E&M: 16222 Subs Hosp L2
--- NOTE | 2023-01-16 08:07 | PCM.PN.SRG ---
Subjective Subjective Patient is a 67 y/o M I am following for constipation secondary to narcotic pain medication. Patient had soap suds enemas yesterday x 2 with excellent results. Patient notes feeling more hungry today. Patient notes less abdominal pressure sensation. He only notes slight discomfort in the lower abdomen with movement. He overall feels more comfortable today. Objective Data Objective Data Vital Signs: Vital Signs Temp Pulse Resp BP Pulse Ox O2 Del Method O2 Flow Rate 99.2 F H 72 18 153/84 H 92 Room Air 2 01/16/23 06:37 01/16/23 06:37 01/16/23 06:37 01/16/23 06:37 01/16/23 06:37 01/16/23 06:37 01/15/23 04:22 Oxygen Flow Rate (L/min) 2 Oxygen Delivery Method Room Air Weight: 303 lb 12.752 oz Body Mass Index (BMI) 42.3 Intake & Output: Intake and Output for Last 24 Hours 01/14/23 01/15/23 01/16/23 23:59 23:59 23:59 Intake Total 3572.50 / 3572.50 Output Total 5300 / 5300 1475 / 1475 Balance -1727.50 / -1727.50 -1475 / -1475 Lab / Micro Data Result Diagrams: 01/16/23 05:55 01/16/23 05:55 Labs: Laboratory Results - last 24 hr 01/14/23 16:30: Diff Path Review Reviewed 01/15/23 06:30: PTH Intact 7.5 L 01/16/23 05:55: WBC 7.7, RBC 3.48 L, Hgb 10.8 L, Hct 34.2 L, MCV 98.3 H, MCH 31.0, MCHC 31.6 L, RDW Std Deviation 50.1 H, RDW Coeff of Justine 13.9, Plt Count 223, MPV 8.6, Immature Gran % (Auto) 0.600, Neut % (Auto) 60.5, Lymph % (Auto) 20.5, [place] % (Auto) 15.3 H, Eos % (Auto) 2.7, Baso % (Auto) 0.4, Absolute Neuts (auto) 4.7, Absolute Lymphs (auto) 1.58, Nucleated RBC % 0 01/16/23 05:55: Sodium 142, Potassium 3.7, Chloride 106, Carbon Dioxide 30.0, Anion Gap 6, BUN 9, Creatinine 0.69 L, Estim Creat Clear Calc 113.68, Est GFR (MDRD) Af Amer 147, Est GFR (MDRD) Non-Af 122, BUN/Creatinine Ratio 13.0, Glucose 105, Calcium 10.3 H, Magnesium 1.8 Micro: Microbiology 01/14/23 20:30 Urine, Clean Catch Urine Culture - Preliminary GPC Poss Enterococcus sp Radiography Diagnostic Testing: Radiology Impression Lumbar Spine MRI 01/15/23 08:30 IMPRESSION: 1. Moderate recent central compression fracture of the upper L3 vertebral body causing increased central disc space height and nearly 50% loss of the central vertebral body height. This is a new finding when compared to 10/30/2022. This is feasible for kyphoplasty if patient has debilitating back pain referrable to this site. 2. Severe central canal stenosis at L3-L4 disc space level with an AP canal diameter of 3 mm, previously 4.7 mm. This is secondary to developmentally short pedicles and prominent dorsal epidural lipomatosis. 3. Moderate central canal stenosis at L4-L5 disc space level with an AP canal diameter of 7 mm secondary to developmentally short pedicles, prominent dorsal epidural lipomatosis and mild degenerative retrolisthesis of L4 on L5. This level is unchanged. 4. Moderate central canal stenosis at L2-L3 disc space level with an AP canal diameter of 8 mm, previously 9 mm. This is secondary to developmentally short pedicles and prominent dorsal epidural lipomatosis. 5. Mild degenerative retrolisthesis of L5 on S1 and mild stenosis of the left L5-S1 intervertebral neural foramen. This level is unchanged. Electronically Signed: Wilfredo Aiken MD at 11:34 EDT , Thoracic Spine MRI 01/15/23 09:15 IMPRESSION: 1. Mild recent compression fracture of the T5 vertebral body without retropulsion when compared to 10/30/2022. 2. Pronounced old T7 compression fracture with resolution of the retropulsed fragment and the posterior displacement of the thoracic spinal cord following posterior laminectomy decompression and fusion using pedicular screws at T5, T6, T8 and T9 and vertical rods. 3. Single distortion artifacts on the thoracic spinal cord due to pedicular screws and rods. 4. No other additional findings or changes. Electronically Signed: Wilfredo Aiken MD at 11:21 EDT , Physical Exam Const alert and oriented x3 GI soft to palpation Palpation: tender other (Very minimal tenderness lower abdomen) Assessment & Plan Assessment/Plan (1) Constipation: PLAN: Constipation, resolved Recommend scheduled stool softener daily until completed with narcotic pain medication regimen Increase diet to regular diet for lunch We will sign off at this time. Please re-consult our services if needed Charges/Coding Visit Charges Inpatient E&M: 69251 Subs Hosp L1
--- NOTE | 2023-01-16 09:16 | CASEMGMT ---
Social Work [facility] and [facility] both accepted pt. SW in to pt room to obtain FOC from pt. Pt stated [facility] would be preference. Discussed Medicare days and SW explained unsure how many pt has left. Pt also uncertain. Pt voiced concern that insurance would deny SNF stay for rehab as pt was recent cut from TCU by insurance. SW explained if denied then HHC can be resumed and DME can be re-examined to see what may help pt best. pt shared if a transfer board is available it would be very helpful after going home. SW informed RN CM of pt request for transfer board. RN to see if it is coverable by insurance. SW responded to [facility] and asked for precert to be started. PLAN: [facility], pending precert TEJAS Mcintosh
[2023-01-16 09:35] VITALS: BP 170/90; PULSE 76; RESP 18; TEMP 36.6; O2SAT 96
[2023-01-16] MEDS: Lidocaine 5% Patch 1 PATCH TOPICAL (09:38)
[2023-01-16] MEDS: Polyethylene Glycol 3350 17 GM PACKET PO (09:41)
[2023-01-16] MEDS: Docusate Sodium 100 MG Capsule PO ×2 (09:41→21:44)
[2023-01-16] MEDS: Escitalopram Oxalate 10 MG Tablet PO (09:42)
[2023-01-16] MEDS: buPROPion 75 MG Tablet PO (09:42)
[2023-01-16] MEDS: Enoxaparin 40 MG/0.4 ML Syringe SC (09:43)
[2023-01-16] MEDS: Fluticasone 0.05% 1 SPRAY NASAL.SRY 2 SPRAY NASAL (09:44)
[2023-01-16] MEDS: Famotidine 200 MG/20 ML MDV 20 MG in 0.9% Normal Saline (Pres. free 8 ML 300 MG IV ×2 (09:47→21:44)
[2023-01-16] MEDS: cycloBENZAPRine HCl 5 MG TABLET PO (09:52)
[2023-01-16] MEDS: 0.9% Normal Saline 1,000 ML 75 ML IV ×2 (09:54→21:45)
[2023-01-16 10:09] VITALS: O2SAT 89
[2023-01-16] MEDS: Ferrous Sulfate 325 MG Tablet PO (11:50)
[2023-01-16] MEDS: Cholestyramine/Sucrose 4 GM/PACKET PO (14:14)
--- NOTE | 2023-01-16 15:16 | CASEMGMT ---
Spoke with [facility] liaison regarding pt equipment received. She states pt did receive the heavy duty walker and cannot get a bigger walker. Made her aware that pt w/c cannot go through his doorways. She states because pt qualifies for this w/c, he cannot get a smaller one.
[2023-01-16 15:35] VITALS: BP 136/80; PULSE 65; RESP 18; TEMP 36.8; O2SAT 97
[2023-01-16 21:34] VITALS: BP 142/63; PULSE 75; RESP 20; TEMP 36.6; O2SAT 97
[2023-01-16] MEDS: amLODIPine 10 MG Tablet PO (21:43)
[2023-01-17] VITALS (9 sets, daily range): BP systolic 97–154; BP diastolic 69–95; PULSE 48–58; RESP 12–19; TEMP 36.4–36.9; O2SAT 92–98
[2023-01-17] MEDS: HYDROcodone Bitartrate/Apap 5/325 Tablet PO ×4 (02:29→20:42)
[2023-01-17] MEDS: Gabapentin 600 MG Tablet PO ×3 (06:46→22:26)
[2023-01-17 07:13] LABS: Absolute Lymphocyte Count 1.99 X10^3/uL (0.83-4.51); Absolute Neutrophil Count 4.5 X10^3/uL (2.0-7.7); Basophil# 0.04 X10^3/uL; Basophil% 0.5 % (0-1); Eosinophil# 0.26 X10^3/uL; Eosinophils% 3.2 % (0-5); Hematocrit 36.1 % (40-54); Hemoglobin 11.4 g/dL (13.0-16.5); Lymphocyte # 1.99 X10^3/ul (0.83-4.51); Lymphocyte % 24.4 % (19-41); Mean Corp Hgb Conc 31.6 g/dL (32-36); Mean Corpuscular Hgb 30.8 pg (27.0-32.0); Mean Corpuscular Volume 97.6 fL (80-94); Mean Platelet Vol. 8.5 fl (6.2-12.0); Monocyte# 1.31 X10^3/uL; NRBC Flagged by Analyzer 0 % (0-5); Neutrophil # 4.54 X10^3/uL (2.7-7.7); Neutrophil % 55.5 % (47-70); Platelet Count 236 K/mm3 (150-450); RBC Distribution Width CV 13.7 % (11.6-14.6); RBC Distribution Width SD 48.6 fl (35.1-43.9); White Blood Count 8.2 K/mm3 (4.4-11.0)
[2023-01-17 07:48] LABS: Anion Gap 10 (5-15); BUN 11 mg/dL (7-18); BUN/Creat Ratio 15.7 RATIO (10-20); Calcium,Total 10.3 mg/dL (8.5-10.1); Chloride 104 mmol/L (98-107); EST Glomerular Filtration Rate 120 mL/min (>60); Est Glom Filt Rate - Afr Amer 145 mL/min (>60); Estimated Creatinine Clearance 112.05 ml/min; Glucose 104 mg/dL (74-106); Potassium 3.7 mmol/L (3.5-5.1); Sodium Level 141 mmol/L (136-145)
--- NOTE | 2023-01-17 07:57 | PN.HOSP_ITS ---
Reason for Visit Reason for Visit: Diagnoses Ileus, unspecified (01/14/23) Constipation, unspecified (01/14/23) Dorsalgia, unspecified (01/14/23) Other symptoms and signs involving the musculoskeletal system (01/14/23) Subjective Subjective Blood pressure was markedly elevated today prior adjusted antihypertensive blood pressure appears to have stabilized. Awaiting transfer to [facility] facility pending insurance approval Objective Data Objective Data Vital Signs: Vital Signs Temp Pulse Resp BP Pulse Ox O2 Del Method O2 Flow Rate 97.5 F L 55 L 18 133/70 H 96 Nasal Cannula 2 01/17/23 02:27 01/17/23 02:27 01/17/23 02:27 01/17/23 02:27 01/17/23 07:15 01/17/23 07:15 01/17/23 07:15 Oxygen Flow Rate (L/min) 2 Oxygen Delivery Method Nasal Cannula Weight: 137.8 kg Body Mass Index (BMI) 42.3 Intake & Output: Intake and Output for Last 24 Hours 01/15/23 01/16/23 01/17/23 23:59 23:59 23:59 Intake Total 3572.50 / 3572.50 2338.75 / 2338.75 400 / 400 Output Total 5300 / 5300 5000 / 5000 1600 / 1600 Balance -1727.50 / -1727.50 -2661.25 / -2661.25 -1200 / -1200 Lab / Micro Data Result Diagrams: 01/17/23 06:38 01/17/23 06:38 Labs: Laboratory Results - last 24 hr 01/17/23 06:38: WBC 8.2, RBC 3.70 L, Hgb 11.4 L, Hct 36.1 L, MCV 97.6 H, MCH 30.8, MCHC 31.6 L, RDW Std Deviation 48.6 H, RDW Coeff of Justine 13.7, Plt Count 236, MPV 8.5, Immature Gran % (Auto) 0.400, Neut % (Auto) 55.5, Lymph % (Auto) 24.4, [place] % (Auto) 16.0 H, Eos % (Auto) 3.2, Baso % (Auto) 0.5, Absolute Neuts (auto) 4.5, Absolute Lymphs (auto) 1.99, Nucleated RBC % 0 01/17/23 06:38: Sodium 141, Potassium 3.7, Chloride 104, Carbon Dioxide 27.0, Anion Gap 10, BUN 11, Creatinine 0.70, Estim Creat Clear Calc 112.05, Est GFR (MDRD) Af Amer 145, Est GFR (MDRD) Non-Af 120, BUN/Creatinine Ratio 15.7, Glucose 104, Calcium 10.3 H Micro: Microbiology 01/14/23 20:30 Urine, Clean Catch Urine Culture - Final Enterococcus faecalis Physical Exam Narrative GENERAL: cooperative HEENT: Atraumatic; normocephalic EYES; Anicteric, Normal Conjunctiva NECK; supple, normal thyroid, RESPIRATORY: Diminished to auscultation CARDIOVASCULAR: Regular S1 S2, GI: soft, normoactive bowel sounds, : No Renal angle tenderness; EXTREMITIES: No edema, no clubbing, MUSCULOSKELETAL: no muscle wasting NEURO: Awake; no lateralizing signs. SKIN: No Rash PSYCH; Flat affect Assessment & Plan Assessment/Plan (1) Severe back pain: (2) Bilateral leg weakness: PLAN: Plan Patient is a 67-year-old gentleman recently discharged from TCU presented to the emergency department with back pain. Imaging studies obtained demonstrated L3 compression fracture 1. Acute back pain ? Secondary to L3 compression fracture. Patient has been admitted to regular nursing floor for symptom management. Dr. Menjivar with surgeon on-call Dr. Dennis Campos was notified by the ED recommended for patient to undergo further studies with MRI of the thoracic and lumbar spine ? 01/17/2023; patient still complains of some pain 2. Leukocytosis ? Possibly stress related resolved 3. Hypercalcemia ? Resolved with hydration 4. Constipation ? Treated symptomatically 5. Hypertension - Blood pressure controlled, home medications continued with dose adjustment as needed ? 01/17/2023; adjusted patient blood pressure medications in view of patient blood pressure control not being optimal 6. Known ascending aortic aneurysm ? Stable patient being monitored by primary care physician as outpatient 7. Obstructive sleep apnea ? CPAP at night 8. Class III obesity with BMI of 42.4 ? Weight loss advised. 9. Depression ? Patient is on Lexapro did continue 10. DVT prophylaxis ? SC Lovenox 11. Physical deconditioning - Requested for PT OT eval and social media project manager to assist with discharge planning Time spent in the patient's overall evaluation,decision-making process, review of diagnostic data, adjustment of management, discussion with other providers, nursing nursing and ancillary staff involved in patient's care documentation, 35 Minutes Charges/Coding Visit Charges Inpatient E&M: 69001 Subs Hosp L2
[2023-01-17] MEDS: Lidocaine 5% Patch 1 PATCH TOPICAL (08:08)
[2023-01-17] MEDS: Docusate Sodium 100 MG Capsule PO ×2 (08:09→22:26)
[2023-01-17] MEDS: Polyethylene Glycol 3350 17 GM PACKET PO (08:10)
[2023-01-17] MEDS: buPROPion 75 MG Tablet PO (08:10)
[2023-01-17] MEDS: Enoxaparin 40 MG/0.4 ML Syringe SC (08:10)
[2023-01-17] MEDS: Fluticasone 0.05% 1 SPRAY NASAL.SRY 2 SPRAY NASAL (08:11)
[2023-01-17] MEDS: Escitalopram Oxalate 10 MG Tablet PO (08:11)
[2023-01-17] MEDS: Famotidine 200 MG/20 ML MDV 20 MG in 0.9% Normal Saline (Pres. free 8 ML 330 MG IV (08:16)
[2023-01-17] MEDS: Carvedilol 25 MG Tablet PO (08:21)
[2023-01-17] MEDS: amLODIPine 10 MG Tablet PO (08:21)
[2023-01-17] MEDS: Losartan Potassium 100 MG Tablet PO (10:07)
--- NOTE | 2023-01-17 10:13 | CASEMGMT ---
Addendum entered by Carlie Rodriguez 01/17/23 14:38: Updated pt on equipment deliveries. Pt inquire about a smaller w/c. Made him aware that he would need to purchase if he would like this as he qualified for a larger w/c. Pt denies further questions. Original Note: Received tc from [facility] TCU SW that pt will have drop arm BSC delivered today to his home and the slide board will be delivered in the next 2 days. She called pt to make aware. Respiratory therapist states pt CPAP is broken and he will need a follow up sleep study upon dc. Updated SW as plan is SNF.
[2023-01-17] MEDS: Ferrous Sulfate 325 MG Tablet PO (12:50)
[2023-01-17] MEDS: cycloBENZAPRine HCl 5 MG TABLET PO ×2 (12:52→22:26)
--- NOTE | 2023-01-17 13:50 | TREXTCAR_ITS ---
Diet Diet Order/Speech Therapy: 01/16/23 08:31 Diet: Regular - General Is pt able to select menu?: Yes Wound(s) BLE: Wound Type: Abrasion Therapies Physical Therapy: Eval and Treat Occupational Therapy: Eval and Treat Problem/Diagnosis (1) Severe back pain: Status: Acute Code(s): M54.9 - Dorsalgia, unspecified (2) Bilateral leg weakness: Status: Acute Code(s): R29.898 - Other symptoms and signs involving the musculoskeletal system Plan Patient is a 67-year-old gentleman recently discharged from TCU presented to the emergency department with back pain. Imaging studies obtained demonstrated L3 compression fracture 1. Acute back pain ? Secondary to L3 compression fracture. Patient has been admitted to regular nursing floor for symptom management. Dr. Menjivar with surgeon on-call Dr. Dennis Campos was notified by the ED recommended for patient to undergo further studies with MRI of the thoracic and lumbar spine ? 01/17/2023; patient still complains of some pain 2. Leukocytosis ? Possibly stress related resolved 3. Hypercalcemia ? Resolved with hydration 4. Constipation ? Treated symptomatically 5. Hypertension - Blood pressure controlled, home medications continued with dose adjustment as needed ? 01/17/2023; adjusted patient blood pressure medications in view of patient blood pressure control not being optimal 6. Known ascending aortic aneurysm ? Stable patient being monitored by primary care physician as outpatient 7. Obstructive sleep apnea ? CPAP at night 8. Class III obesity with BMI of 42.4 ? Weight loss advised. 9. Depression ? Patient is on Lexapro did continue 10. DVT prophylaxis ? SC Lovenox 11. Physical deconditioning - Requested for PT OT eval and community mental health social worker to assist with discharge planning Time spent in the patient's overall evaluation,decision-making process, review of diagnostic data, adjustment of management, discussion with other providers, nursing nursing and ancillary staff involved in patient's care documentation, 35 Minutes Allergies/Procedures Done in Hospital Allergies lorazepam Allergy (Verified 01/14/23 15:41) Other Penicillins Allergy (Verified 01/14/23 15:41) Itching poison ever extract Allergy (Verified 01/14/23 15:41) Itching tizanidine [From Zanaflex] Allergy (Verified 01/14/23 15:41) Other Type of Care/Length of Stay Estimated LOS: Convalescent Care Less Than 30 days Type of Care Needed: Skilled Rehab Potential: Good Prognosis: Good Additional Orders/Day of Discharge Day of Discharge: 01/18/23 Discharge Plan Admission Admit Date/Time: 01/14/23 20:19 Attending Provider: Micheal Young Primary Care Provider: Arleen Hwang Consulting Providers: Dennis Perez ; Yanely Pandya ; Pancho Hartmann Discharge Orders/Prescriptions Prescriptions: New acetaminophen 325 mg Tablet 650 mg PO Q6H PRN PRN (Reason: Pain 1-10 Or Fever>100.7) Qty: 0 0RF gabapentin 600 mg Tablet 600 mg PO TID Qty: 0 0RF polyethylene glycol 3350 17 gram Powder In Packet 17 g PO DAILY Qty: 0 0RF docusate sodium 100 mg Capsule 100 mg PO BID Qty: 0 0RF Continued amlodipine 10 MG tablet 10 mg PO QHS escitalopram oxalate 20 MG tablet 10 mg PO DAILY carvedilol 25 mg tablet 25 mg PO BID Label Comments: TAKE 1 TABLET BY MOUTH TWICE A DAY WITH MEALS bupropion HCl 75 mg tablet 75 mg PO DAILY Label Comments: START WITH TAKING 1 TABLET DAILY AND INCREASE TO 1 TABLET TWICE DAILY IF TOLERATED gabapentin 600 mg Tablet 600 mg PO TIDCM 30 Days Qty: 90 0RF bethanechol chloride 25 mg Tablet 25 mg PO TID 30 Days Qty: 90 0RF famotidine 20 mg Tablet 20 mg PO BID 30 Days Qty: 60 0RF ferrous sulfate [FeroSul] 325 mg (65 mg iron) Tablet 325 mg PO DAILY@1200 30 Days Qty: 30 0RF fluticasone propionate 50 mcg/actuation [place],Suspension 2 spray NASAL DAILY 30 Days Qty: 16 0RF cyclobenzaprine 5 mg Tablet 5 mg PO TID PRN PRN (Reason: Muscle Spasm) 30 Days Qty: 90 0RF cholestyramine (with sugar) 4 gram Powder In Packet 4 g PO DAILY@1000 30 Days Qty: 30 0RF lidocaine 5 % Adhesive Patch,Medicated 1 patch topical 0800 30 Days Qty: 30 0RF Healthy Eyes 300 mcg-200 mg-27 mg-2 mg Tablet 1 cap PO DAILYCM Qty: 0 0RF Mag 64 64 mg Tablet,Delayed Release (Dr/Ec) 128 mg PO DAILY 30 Days Qty: 60 0RF albuterol sulfate 90 mcg/actuation HFA aerosol inhaler 2 puff INHALATION Q6H Label Comments: INHALE 2 PUFFS BY MOUTH EVERY 6 HOURS NEEDED FOR WHEEZING OR SHORTNESS OF BREATH losartan 100 mg tablet 100 mg PO DAILY Label Comments: TAKE 1 TABLET BY MOUTH EVERY DAY hydrocodone-acetaminophen 5-325 mg Tablet 1 tab PO Q4H PRN PRN (Reason: Moderate to severe pain 4-10) 2 Days Qty: 8 0RF Discontinued lisinopril 40 mg Tablet 40 mg PO DAILY 30 Days Qty: 30 0RF Referrals / Follow Up: Arleen Hwang MD [Primary Care Provider] - Disposition Disposition (needs filled in before D/C Order can be placed): Nursing Home Facility
[2023-01-17] MEDS: Cholestyramine/Sucrose 4 GM/PACKET PO (14:22)
--- NOTE | 2023-01-17 14:30 | CASEMGMT ---
Updated Faye at [facility] that plan for pt at [place] is SNF.
[2023-01-17] MEDS: Famotidine 20 MG Tablet PO (22:26)
[2023-01-18 02:44] VITALS: BP 148/85; PULSE 54; RESP 16; TEMP 36.3; O2SAT 99
[2023-01-18 02:47] VITALS: PULSE 40; RESP 12; RESP 13; O2SAT 98
[2023-01-18] MEDS: Gabapentin 600 MG Tablet PO ×2 (06:55→13:22)
[2023-01-18 07:27] LABS: Absolute Lymphocyte Count 1.58 X10^3/uL (0.83-4.51); Absolute Neutrophil Count 4.5 X10^3/uL (2.0-7.7); Basophil# 0.04 X10^3/uL; Basophil% 0.5 % (0-1); Eosinophil# 0.28 X10^3/uL; Eosinophils% 3.7 % (0-5); Hematocrit 35.7 % (40-54); Hemoglobin 11.7 g/dL (13.0-16.5); Lymphocyte # 1.58 X10^3/ul (0.83-4.51); Lymphocyte % 20.6 % (19-41); Mean Corp Hgb Conc 32.8 g/dL (32-36); Mean Corpuscular Hgb 31.8 pg (27.0-32.0); Mean Platelet Vol. 8.2 fl (6.2-12.0); Monocyte# 1.27 X10^3/uL; Monocyte% 16.6 % (0-10); NRBC Flagged by Analyzer 0 % (0-5); Neutrophil # 4.46 X10^3/uL (2.7-7.7); Neutrophil % 58.2 % (47-70); Platelet Count 224 K/mm3 (150-450); RBC Distribution Width CV 13.7 % (11.6-14.6); Red Blood Count 3.68 M/mm3 (4.6-6.2); White Blood Count 7.7 K/mm3 (4.4-11.0)
--- NOTE | 2023-01-18 07:41 | PN.HOSP_ITS ---
Reason for Visit Reason for Visit: Diagnoses Ileus, unspecified (01/14/23) Constipation, unspecified (01/14/23) Dorsalgia, unspecified (01/14/23) Other symptoms and signs involving the musculoskeletal system (01/14/23) Wedge compression fracture of T7-T8 vertebra, initial encounter for closed fracture (01/14/23) Subjective Subjective Seen admit to some improvements in his back pain. Awaiting transfer to [facility] facility Objective Data Objective Data Vital Signs: Vital Signs Temp Pulse Resp BP Pulse Ox O2 Del Method O2 Flow Rate 97.3 F L 40 L 13 148/85 H 98 CPAP 2 01/18/23 02:44 01/18/23 02:47 01/18/23 02:47 01/18/23 02:44 01/18/23 02:47 01/18/23 02:50 01/17/23 20:38 FiO2 35 01/18/23 02:47 Oxygen Flow Rate (L/min) 2 Oxygen Delivery Method CPAP Weight: 137.8 kg Body Mass Index (BMI) 42.3 Intake & Output: Intake and Output for Last 24 Hours 01/16/23 01/17/23 01/18/23 23:59 23:59 23:59 Intake Total 2338.75 / 2338.75 2118.75 / 2118.75 30 / 30 Output Total 5000 / 5000 4200 / 4200 600 / 600 Balance -2661.25 / -2661.25 -2081.25 / -2081.25 -570 / -570 Lab / Micro Data Result Diagrams: 01/18/23 07:15 01/18/23 07:15 Labs: Laboratory Results - last 24 hr 01/17/23 06:38: Sodium 141, Potassium 3.7, Chloride 104, Carbon Dioxide 27.0, Anion Gap 10, BUN 11, Creatinine 0.70, Estim Creat Clear Calc 112.05, Est GFR (MDRD) Af Amer 145, Est GFR (MDRD) Non-Af 120, BUN/Creatinine Ratio 15.7, Glucose 104, Calcium 10.3 H 01/18/23 07:15: WBC 7.7, RBC 3.68 L, Hgb 11.7 L, Hct 35.7 L, MCV 97.0 H, MCH 31.8, MCHC 32.8, RDW Std Deviation 49.0 H, RDW Coeff of Justine 13.7, Plt Count 224, MPV 8.2, Immature Gran % (Auto) 0.400, Neut % (Auto) 58.2, Lymph % (Auto) 20.6, [place] % (Auto) 16.6 H, Eos % (Auto) 3.7, Baso % (Auto) 0.5, Absolute Neuts (auto) 4.5, Absolute Lymphs (auto) 1.58, Nucleated RBC % 0 Micro: Microbiology 01/14/23 20:30 Urine, Clean Catch Urine Culture - Final Enterococcus faecalis Physical Exam Narrative GENERAL: cooperative HEENT: Atraumatic; normocephalic EYES; Anicteric, Normal Conjunctiva NECK; supple, normal thyroid, RESPIRATORY: Diminished to auscultation CARDIOVASCULAR: Regular S1 S2, GI: soft, normoactive bowel sounds, : No Renal angle tenderness; EXTREMITIES: No edema, no clubbing, MUSCULOSKELETAL: no muscle wasting NEURO: Awake; no lateralizing signs. SKIN: No Rash PSYCH; Flat affect Assessment & Plan Assessment/Plan (1) Severe back pain: (2) Bilateral leg weakness: PLAN: Plan Patient is a 67-year-old gentleman recently discharged from [facility]CU presented to the emergency department with back pain. Imaging studies obtained demonstrated L3 compression fracture 1. Acute back pain ? Secondary to L3 compression fracture. Patient has been admitted to regular nursing floor for symptom management. Dr. Menjivar with surgeon on-call Dr. Dennis Campos was notified by the ED recommended for patient to undergo further studies with MRI of the thoracic and lumbar spine ? 01/17/2023; patient still complains of some pain 2. Leukocytosis ? Possibly stress related resolved 3. Hypercalcemia ? Resolved with hydration 4. Constipation ? Treated symptomatically 5. Hypertension - Blood pressure controlled, home medications continued with dose adjustment as needed ? 01/17/2023; adjusted patient blood pressure medications in view of patient blood pressure control not being optimal 6. Known ascending aortic aneurysm ? Stable patient being monitored by primary care physician as outpatient 7. Obstructive sleep apnea ? CPAP at night 8. Class III obesity with BMI of 42.4 ? Weight loss advised. 9. Depression ? Patient is on Lexapro did continue 10. DVT prophylaxis ? SC Lovenox 11. Physical deconditioning - Requested for PT OT eval and family welfare social work professor to assist with discharge planning Time spent in the patient's overall evaluation,decision-making process, review o f diagnostic data, adjustment of management, discussion with other providers, nursing nursing and ancillary staff involved in patient's care documentation, 35 Minutes Charges/Coding Visit Charges Inpatient E&M: 28838 Subs Hosp L2
[2023-01-18] MEDS: Lidocaine 5% Patch 1 PATCH TOPICAL (07:47)
[2023-01-18] MEDS: Polyethylene Glycol 3350 17 GM PACKET PO (07:47)
[2023-01-18] MEDS: Docusate Sodium 100 MG Capsule PO (07:48)
[2023-01-18] MEDS: Losartan Potassium 100 MG Tablet PO (07:48)
[2023-01-18] MEDS: Fluticasone 0.05% 1 SPRAY NASAL.SRY 2 SPRAY NASAL (07:48)
[2023-01-18] MEDS: Enoxaparin 40 MG/0.4 ML Syringe SC (07:49)
[2023-01-18] MEDS: amLODIPine 10 MG Tablet PO (07:49)
[2023-01-18] MEDS: Escitalopram Oxalate 10 MG Tablet PO (07:49)
[2023-01-18] MEDS: Famotidine 20 MG Tablet PO (07:50)
[2023-01-18] MEDS: buPROPion 75 MG Tablet PO (07:50)
[2023-01-18 07:55] LABS: Anion Gap 9 (5-15); BUN 13 mg/dL (7-18); Calcium,Total 10.3 mg/dL (8.5-10.1); Chloride 103 mmol/L (98-107); Creatinine, Serum 0.68 mg/dL (0.70-1.30); EST Glomerular Filtration Rate 123 mL/min (>60); Est Glom Filt Rate - Afr Amer 149 mL/min (>60); Estimated Creatinine Clearance 115.35 ml/min; Glucose 108 mg/dL (74-106); Sodium Level 140 mmol/L (136-145)
[2023-01-18] MEDS: HYDROcodone Bitartrate/Apap 5/325 Tablet PO ×2 (07:56→13:39)
[2023-01-18 08:39] VITALS: BP 147/81; PULSE 55; RESP 16; TEMP 36.6; O2SAT 97
[2023-01-18 09:18] VITALS: O2SAT 95
--- NOTE | 2023-01-18 10:21 | DS.PCM_ITS ---
Providers Date of Admission: 01/14/23 Date of Discharge: 01/18/23 Primary Care Physician: Dr. Arleen Hwang MD Consultations 01/15/23 03:45 Consult: Orthopedics Routine Consulting Provider: Dennis Perez Reason for Consult: lower back pain EMERGENT Consult: No Notified: Yes Date Notified: 01/15/23 Time Notified: 03:46 Method of Notification: ED Physician Initiated 01/15/23 06:10 Consult: General Surgery Routine Consulting Provider: Yanely Pandya Reason for Consult: Ileus EMERGENT Consult: No Notified: Yes Date Notified: 01/15/23 Time Notified: 06:11 Method of Notification: Text Reason For Visit: LOWER BACK PAIN; DEBILITY Diagnosis Discharge Diagnosis (1) Severe back pain: Status: Acute Code(s): M54.9 - Dorsalgia, unspecified (2) Bilateral leg weakness: Status: Acute Code(s): R29.898 - Other symptoms and signs involving the musculoskeletal system Plan Patient is a 67-year-old gentleman recently discharged from [facility] presented to the emergency department with back pain. Imaging studies obtained demonstrated L3 compression fracture 1. Acute back pain ? Secondary to L3 compression fracture. Patient has been admitted to regular nursing floor for symptom management. Dr. Menjivar with surgeon on-call Dr. Dennis Campos was notified by the ED recommended for patient to undergo further studies with MRI of the thoracic and lumbar spine ? 01/17/2023; patient still complains of some pain 2. Leukocytosis ? Possibly stress related resolved 3. Hypercalcemia ? Resolved with hydration 4. Constipation ? Treated symptomatically 5. Hypertension - Blood pressure controlled, home medications continued with dose adjustment as needed ? 01/17/2023; adjusted patient blood pressure medications in view of patient blood pressure control not being optimal 6. Known ascending aortic aneurysm ? Stable patient being monitored by primary care physician as outpatient 7. Obstructive sleep apnea ? CPAP at night 8. Class III obesity with BMI of 42.4 ? Weight loss advised. 9. Depression ? Patient is on Lexapro did continue 10. DVT prophylaxis ? SC Lovenox 11. Physical deconditioning - Requested for PT OT eval and social work manager to assist with discharge planning Time spent in the patient's overall evaluation,decision-making process, review of diagnostic data, adjustment of management, discussion with other providers, nursing nursing and ancillary staff involved in patient's care documentation, 35 Minutes Medications at Discharge Home Medications amlodipine 10 mg tablet 10 mg PO QHS Blood pressure 10/14/19 escitalopram oxalate 20 mg tablet 10 mg PO DAILY Check with primary doctor 10/14/19 bupropion HCl 75 mg tablet 75 mg PO DAILY Depression 09/18/22 carvedilol 25 mg tablet 25 mg PO BID Check with primary doctor 09/18/22 bethanechol chloride 25 mg tablet 25 mg PO TID 30 days #90 tabs 01/07/23 cholestyramine (with sugar) 4 gram powder for susp in a packet 4 g PO DAILY@1000 30 days #30 ea 01/07/23 cyclobenzaprine 5 mg tablet 5 mg PO TID PRN PRN Muscle Spasm 30 days #90 tabs 01/07/23 famotidine 20 mg tablet 20 mg PO BID 30 days #60 tabs 01/07/23 ferrous sulfate 325 mg (65 mg iron) tablet (FeroSul) 325 mg PO DAILY@1200 30 days #30 tabs 01/07/23 fluticasone propionate 50 mcg/actuation nasal spray,suspension 2 spray NASAL DAILY 30 days #16 grams 01/07/23 gabapentin 600 mg tablet 600 mg PO TIDCM 30 days #90 tabs 01/07/23 lidocaine 5 % topical patch 1 patch topical 0800 30 days #30 ea 01/07/23 magnesium chloride 64 mg (magnesium chloride) tablet,delayed release (Mag 64) 128 mg PO DAILY 30 days #60 tabs 01/07/23 vit A 300 mcg-C 200 mg-E 27 mg-lutein 2 mg and minerals tablet (Healthy Eyes) 1 cap PO DAILYCM #0 tabs 01/07/23 albuterol sulfate 90 mcg/actuation aerosol inhaler 2 puff inhalation Q6H sob 01/14/23 losartan 100 mg tablet 100 mg PO DAILY 01/14/23 acetaminophen 325 mg tablet 650 mg PO Q6H PRN PRN Pain 1-10 Or Fever>100.7 #0 t abs 01/17/23 docusate sodium 100 mg capsule 100 mg PO BID #0 caps 01/17/23 gabapentin 600 mg tablet 600 mg PO TID #0 tabs 01/17/23 hydrocodone-acetaminophen 5-325mg 5mg-325mg 1 tab PO Q4H PRN PRN Moderate to severe pain 4-10 2 days #8 tabs 01/17/23 polyethylene glycol 3350 17 gram oral powder packet 17 g PO DAILY #0 ea 01/17/23 Hospital Course Summary of Care Provided Minutes Spent on Discharge: 35 Physical Exam Narrative GENERAL: cooperative HEENT: Atraumatic; normocephalic EYES; Anicteric, Normal Conjunctiva NECK; supple, normal thyroid, RESPIRATORY: Diminished to auscultation CARDIOVASCULAR: Regular S1 S2, GI: soft, normoactive bowel sounds, : No Renal angle tenderness; EXTREMITIES: No edema, no clubbing, MUSCULOSKELETAL: no muscle wasting NEURO: Awake; no lateralizing signs. SKIN: No Rash PSYCH; Flat affect Weight / BMI Weight Weight: 137.8 kg Body Mass Index (BMI) 42.3 ABG / Lab / Microbiology Data Result Diagrams: 01/18/23 07:15 01/18/23 07:15 Laboratory: Laboratory Results - last 24 hr 01/18/23 07:15: WBC 7.7, RBC 3.68 L, Hgb 11.7 L, Hct 35.7 L, MCV 97.0 H, MCH 31.8, MCHC 32.8, RDW Std Deviation 49.0 H, RDW Coeff of Justine 13.7, Plt Count 224, MPV 8.2, Immature Gran % (Auto) 0.400, Neut % (Auto) 58.2, Lymph % (Auto) 20.6, [place] % (Auto) 16.6 H, Eos % (Auto) 3.7, Baso % (Auto) 0.5, Absolute Neuts (auto) 4.5, Absolute Lymphs (auto) 1.58, Nucleated RBC % 0 01/18/23 07:15: Sodium 140, Potassium 4.0, Chloride 103, Carbon Dioxide 28.0, Anion Gap 9, BUN 13, Creatinine 0.68 L, Estim Creat Clear Calc 115.35, Est GFR (MDRD) Af Amer 149, Est GFR (MDRD) Non-Af 123, BUN/Creatinine Ratio 19.0, Glucose 108 H, Calcium 10.3 H Microbiology: Microbiology 01/14/23 20:30 Urine, Clean Catch Urine Culture - Final Enterococcus faecalis D/C Instructions Discharge Diet: No restrictions Discharge Activity: Return to Normal Activity Call your doctor if you observe: Fever of 101 or Higher, Shortness of breath, Fainting spells and Chest pain Meaningful Use Info Meaningful Use Diagnoses (Choose all that apply): None applicable Discharge Plan Admission Admit Date/Time: 01/14/23 20:19 Attending Provider: Micheal Young Primary Care Provider: Arleen Hwang Consulting Providers: Dennis Perez ; Yanely Pandya ; Pancho Hartmann Discharge Orders/Prescriptions Prescriptions: New acetaminophen 325 mg Tablet 650 mg PO Q6H PRN PRN (Reason: Pain 1-10 Or Fever>100.7) Qty: 0 0RF gabapentin 600 mg Tablet 600 mg PO TID Qty: 0 0RF polyethylene glycol 3350 17 gram Powder In Packet 17 g PO DAILY Qty: 0 0RF docusate sodium 100 mg Capsule 100 mg PO BID Qty: 0 0RF Continued amlodipine 10 MG tablet 10 mg PO QHS escitalopram oxalate 20 MG tablet 10 mg PO DAILY carvedilol 25 mg tablet 25 mg PO BID Label Comments: TAKE 1 TABLET BY MOUTH TWICE A DAY WITH MEALS bupropion HCl 75 mg tablet 75 mg PO DAILY Label Comments: START WITH TAKING 1 TABLET DAILY AND INCREASE TO 1 TABLET TWICE DAILY IF TOLERATED gabapentin 600 mg Tablet 600 mg PO TIDCM 30 Days Qty: 90 0RF bethanechol chloride 25 mg Tablet 25 mg PO TID 30 Days Qty: 90 0RF famotidine 20 mg Tablet 20 mg PO BID 30 Days Qty: 60 0RF ferrous sulfate [FeroSul] 325 mg (65 mg iron) Tablet 325 mg PO DAILY@1200 30 Days Qty: 30 0RF fluticasone propionate 50 mcg/actuation [place],Suspension 2 spray NASAL DAILY 30 Days Qty: 16 0RF cyclobenzaprine 5 mg Tablet 5 mg PO TID PRN PRN (Reason: Muscle Spasm) 30 Days Qty: 90 0RF cholestyramine (with sugar) 4 gram Powder In Packet 4 g PO DAILY@1000 30 Days Qty: 30 0RF lidocaine 5 % Adhesive Patch,Medicated 1 patch topical 0800 30 Days Qty: 30 0RF Healthy Eyes 300 mcg-200 mg-27 mg-2 mg Tablet 1 cap PO DAILYCM Qty: 0 0RF Mag 64 64 mg Tablet,Delayed Release (Dr/Ec) 128 mg PO DAILY 30 Days Qty: 60 0RF albuterol sulfate 90 mcg/actuation HFA aerosol inhaler 2 puff INHALATION Q6H Label Comments: INHALE 2 PUFFS BY MOUTH EVERY 6 HOURS NEEDED FOR WHEEZING OR SHORTNESS OF BREATH losartan 100 mg tablet 100 mg PO DAILY Label Comments: TAKE 1 TABLET BY MOUTH EVERY DAY hydrocodone-acetaminophen 5-325 mg Tablet 1 tab PO Q4H PRN PRN (Reason: Moderate to severe pain 4-10) 2 Days Qty: 8 0RF Discontinued lisinopril 40 mg Tablet 40 mg PO DAILY 30 Days Qty: 30 0RF Referrals / Follow Up: Arleen Hwang MD [Primary Care Provider] - Disposition Disposition (needs filled in before D/C Order can be placed): Intermediate Facility Charges/Coding Visit Charges Inpatient E&M: 58699 Disch Hosp >30min
[2023-01-18] MEDS: Ferrous Sulfate 325 MG Tablet PO (10:58)
[2023-01-18] MEDS: cycloBENZAPRine HCl 5 MG TABLET PO (10:58)
[2023-01-18 11:32] VITALS: BP 127/64; PULSE 60; RESP 16; TEMP 36.5; O2SAT 97
[2023-01-18 11:40] VITALS: O2SAT 95
--- NOTE | 2023-01-18 14:17 | CASEMGMT ---
Social Work Precert has been obtained and pt can be accept at [facility] today. Physician updated and pt is ready for discharge. PASRR completed in [facility] and sent along with discharge orders, covid results and CPAP settings to [facility] via [facility]. SW spoke with [facility] and they will be able to get a CPAP for pt to use while in the facility and SW requested a sleep study be set up at time of discharge from SNF. Transportation arranged with [facility] for 4:00 picking table worker via [facility]. SW met with pt and updated on discharge plan and pt is agreeable. Pt states he will notify family. Nursing and [facility] updated on dischage time. Disposition: [facility], skilled level of care TEJAS Lindo
[2023-01-18] MEDS: Cholestyramine/Sucrose 4 GM/PACKET PO (14:25)
== END 2023-01-18 15:22 | disposition skilled nursing facility (03) ==
LOC: ED 21:09 → MS3 01-15 07:26
PROVIDERS: Admitting Provider Hospitalist; Emergency Provider Emergency Medicine; PCP Internal Medicine; Visit Provider Internal Medicine
DX: M48.56XA Collapsed vertebra, not elsewhere classified, lumbar region, initial encounter for fracture (principal); I71.40 Abdominal aortic aneurysm, without rupture, unspecified; Z68.41 Body mass index [BMI] 40.0-44.9, adult; K56.7 Ileus, unspecified; Z87.891 Personal history of nicotine dependence; T40.605A Adverse effect of unspecified narcotics, initial encounter; I10 Essential (primary) hypertension; M62.81 Muscle weakness (generalized); R62.7 Adult failure to thrive; R53.81 Other malaise; M48.04 Spinal stenosis, thoracic region; Z79.899 Other long term (current) drug therapy; Z79.51 Long term (current) use of inhaled steroids; Z98.1 Arthrodesis status; G47.33 Obstructive sleep apnea (adult) (pediatric); L40.9 Psoriasis, unspecified; R29.898 Other symptoms and signs involving the musculoskeletal system; E66.9 Obesity, unspecified; F32.A Depression, unspecified
CPT/HCPCS: 36415; 72146; 72148; 74176; 80048; 81001; 83735; 83970; 85025; 87077; 87086; 87088; 87186; 87426; 94002; 94762; 96361; 96365; 96372; 96375; 96376; 97110; 97162; 97166; 97530; 97535; 99221; 99285; J7030; A4216; G0378; J3490

== ENCOUNTER 2023-03-08 09:47 | Inpatient (IN) | payer MEDICARE, SELFPAY ==
[2023-03-08] VITALS (13 sets, daily range): BP systolic 125–143; BP diastolic 58–78; PULSE 41–79; RESP 12–27; TEMP 36.2–36.7; O2SAT 88–98; BMI 42.7; BMI 41.6
--- NOTE | 2023-03-08 10:13 | EKG12_ITS ---
Test Reason : SOB Blood Pressure : / mmHG Vent. Rate : 049 BPM Atrial Rate : 220 BPM P-R Int : 000 ms QRS Dur : 104 ms QT Int : 476 ms P-R-T Axes : 000 029 040 degrees QTc Int : 429 ms Atrial flutter with variable A-V block Abnormal ECG Confirmed by KAROLINE VERDE, SARABJIT ([id number]), editor sound MARTY WASHINGTON ([id number]) on 03/11/2023 11:33:39 AM Referred By: Confirmed By:SARABJIT RAMEY MD
--- NOTE | 2023-03-08 10:15 | EDS_ITS ---
HPI History of Present Illness Chief Complaint: Shortness of Breath Informant: patient Onset/Context/Timing Onset: Days Context: gradual Timing: Continuous Quality: Positive for Dyspnea on exertion Current Severity: Mild Maximum Severity: Mild Worsened by: Exertion and Coughing Relieved by: Oxygen Associated Symptoms cough; Negative for fever, sore throat or sweats Chest Pain: Positive for None Narrative Narrative: 67-year-old male history of chronic oxygen requirement, renal sufficiency, pulmonary emboli but not on blood thinners and wheelchair-bound. Since last 2 days has had increasing shortness of breath at home on his oxygen has been as low as 70%. Nonproductive cough. No fever. No chest pain. No hemoptysis. No significant change in leg swelling or any calf pain. Denies any fever. PE Risk Factors: Negative for Cancer, OCP + Smoking + > 35, Prior DVT or PE, Recent immobilization, Recent surgery or Recent travel Prior similar symptoms: Yes Recent Illness/Hospitalization: No PFSH [facility] Medical History Cancer Hypertension FELA (obstructive sleep apnea) Psoriasis Home Medications amlodipine 10 mg tablet 10 mg PO QHS Blood pressure 10/14/19 [History Last Taken 10/17/20] escitalopram oxalate 20 mg tablet 10 mg PO DAILY Check with primary doctor 10/14/19 [History Last Taken 10/22/22] bupropion HCl 75 mg tablet 75 mg PO DAILY Depression 09/18/22 [History Last Taken Unknown] carvedilol 25 mg tablet 25 mg PO BID Check with primary doctor 09/18/22 [History Last Taken 10/22/22] bethanechol chloride 25 mg tablet 25 mg PO TID 30 days #90 tabs 01/07/23 [Rx Last Taken Unknown] cholestyramine (with sugar) 4 gram powder for susp in a packet 4 g PO DAILY@1000 30 days #30 ea 01/07/23 [Rx Last Taken Unknown] cyclobenzaprine 5 mg tablet 5 mg PO TID PRN PRN Muscle Spasm 30 days #90 tabs 01/07/23 [Rx Last Taken Unknown] famotidine 20 mg tablet 20 mg PO BID 30 days #60 tabs 01/07/23 [Rx Last Taken Unknown] ferrous sulfate 325 mg (65 mg iron) tablet (FeroSul) 325 mg PO DAILY@1200 30 days #30 tabs 01/07/23 [Rx Last Taken Unknown] fluticasone propionate 50 mcg/actuation nasal spray,suspension 2 spray NASAL DAILY 30 days #16 grams 01/07/23 [Rx Last Taken Unknown] gabapentin 600 mg tablet 600 mg PO TIDCM 30 days #90 tabs 01/07/23 [Rx Last Taken Unknown] lidocaine 5 % topical patch 1 patch topical 0800 30 days #30 ea 01/07/23 [Rx Last Taken Unknown] magnesium chloride 64 mg (magnesium chloride) tablet,delayed release (Mag 64) 128 mg PO DAILY 30 days #60 tabs 01/07/23 [Rx Last Taken Unknown] vit A 300 mcg-C 200 mg-E 27 mg-lutein 2 mg and minerals tablet (Healthy Eyes) 1 cap PO DAILYCM #0 tabs 01/07/23 [Rx Last Taken Unknown] albuterol sulfate 90 mcg/actuation aerosol inhaler 2 puff inhalation Q6H sob 01/14/23 [History Last Taken Unknown] losartan 100 mg tablet 100 mg PO DAILY 01/14/23 [History Last Taken Unknown] acetaminophen 325 mg tablet 650 mg PO Q6H PRN PRN Pain 1-10 Or Fever>100.7 #0 tabs 01/17/23 [Rx Last Taken Unknown] docusate sodium 100 mg capsule 100 mg PO BID #0 caps 01/17/23 [Rx Last Taken Unknown] gabapentin 600 mg tablet 600 mg PO TID #0 tabs 01/17/23 [Rx Last Taken Unknown] hydrocodone-acetaminophen 5-325mg 5mg-325mg 1 tab PO Q4H PRN PRN Moderate to severe pain 4-10 2 days #8 tabs 01/17/23 [Rx Last Taken Unknown] polyethylene glycol 3350 17 gram oral powder packet 17 g PO DAILY #0 ea 01/17/23 [Rx Last Taken Unknown] Allergy/AdvReac Type Severity Reaction Status Date / Time lorazepam Allergy Other Verified 03/08/23 09:49 Penicillins Allergy Itching Verified 03/08/23 09:49 poison ever extract Allergy Itching Verified 03/08/23 09:49 tizanidine [From Zanaflex] Allergy Other Verified 03/08/23 09:49 Family History Other Brain aneurysm Heart disease Prostate CA Surgical History History of carpal tunnel surgery History of herniorrhaphy Hx of appendectomy Hx of cholecystectomy Status post laminectomy Social History household members: spouse Smoking Status: Former smoker alcohol intake: current alcohol intake frequency: 3 or more drinks per day substance use type: does not use ROS ROS ED ROS Narrative Shortness of breath. Review of Systems ROS Unobtainable: Denies due to encephalopathy Constitutional Constitutional ED: Denies chills or fever(s) Eyes Eyes: Denies blurry vision ENT ENT ED: Denies ear pain Cardiovascular Cardiovascular: Denies chest pain Respiratory/Chest Respiratory/Chest: Reports cough and dyspnea Gastrointestinal Gastrointestinal: Denies abdominal pain Genitourinary Genitourinary ED: Denies dysuria or hematuria Musculoskeletal Musculoskeletal: Denies arthralgias Integumentary Denies abscess Neurologic Neurologic: Denies headache(s) Psychiatric Psychiatric: Denies anxiety Endocrine Endocrinology: Denies cold intolerance Hematologic/Lymphatic Hematologic/Lymphatic: Denies easy bleeding Allergic/Immunologic Allergic/Immunologic ED: Denies mouth swelling or tongue swelling EXAM Physical Exam Narrative Exam Narrative: 70-year-old male vital signs on room air is 88% on 3 L is in the low 90s. He does not look septic or toxic. He is in no distress. There is no family present in room. HEENT exam unremarkable. Moist with membranes. Neck nont rogerio no lymphadenopathy. No JVD. Lungs few scattered expiratory wheezes. No rhonchi. Heart bradycardic rate in the 50s. No murmur. Chest wall nontender. Abdomen soft nontender. Obese. Moving all 4 extremities. No significant edema. No calf tenderness. Bandages on both lower extremities. Neurologically is awake and alert with no focal motor deficits. Const Vital Signs: 03/08/23 09:49 03/08/23 09:53 03/08/23 09:53 Temperature 98.1 F Temperature Source Oral Pulse Rate 56 L Respiratory Rate 19 H Respiratory Effort Short of Breath Labored Accessory Muscle Use Blood Pressure Blood Pressure Mean Pulse Ox 88 89 Oxygen Delivery Method Room Air Nasal Cannula Nasal Cannula Oxygen Flow Rate (L/min) 3 4 03/08/23 09:53 03/08/23 10:21 03/08/23 10:35 Temperature 98.1 F Temperature Source Oral Pulse Rate 56 L Respiratory Rate 17 Respiratory Effort Blood Pressure 125/58 H Blood Pressure Mean 80 Pulse Ox 93 96 Oxygen Delivery Method Nasal Cannula Nasal Cannula Nasal Cannula Oxygen Flow Rate (L/min) 4 2 4 03/08/23 10:35 03/08/23 12:38 Temperature Temperature Source Pulse Rate 41 L 45 L Respiratory Rate 20 H 16 Respiratory Effort Blood Pressure 134/78 H Blood Pressure Mean 96 Pulse Ox 97 Oxygen Delivery Method Room Air Oxygen Flow Rate (L/min) Positive well nourished, well developed and obese; Negative for cachectic, contractures or unkempt General Appearance ED: well developed; Negative for unkempt, cachectic, contractures or pallor Nutritional Appearance: obese; Negative for cachectic HEENT Reports moist mucous membranes; Denies dry mucous membranes atraumatic; Negative for trauma or tenderness Mouth ED: No dry mucous membranes Mouth: No dry mucous membranes Eyes PERRL and EOMs intact bilaterally General Eye ED: Negative for pale conjunctiva, scleral icterus or other Neck no lymphadenopathy, supple, no meningeal signs and no JVD General: Negative for tenderness Lymph Lymphatic: Negative for other Chest Wall Chest: Negative for other Resp normal respiratory effort and No clear to auscultation bilaterally Auscultation: wheezes; Negative for rhonchi Cardio regular rhythm and no murmurs; Negative for regular rate Rate: bradycardia GI non-tender, non-distended and no masses Inspection: Negative for other Auscultation: normoactive bowel sounds Palpation: soft; Negative for tender or guarding Back/Spine no CVA tenderness General Back: Negative for CVA tenderness Extremity normal to inspection General Extremety ED: Negative for edema or tenderness General Extremity: Negative for edema Neuro oriented x3 and CN's II-XII intact bilaterally Sensorium / Orientation: alert, oriented to person, oriented to place and oriented to time; Negative for orientation impaired, confused, lethargic or stuporous Speech: speech normal Motor Exam: strength 5/5 throughout Psych mental status grossly normal Appearance: Negative for unkempt Thought Process: normal thought process Skin no wounds General Skin Exam: Negative for jaundice or pallor Lesions: no lesions Rashes: no rashes MDM MDM MDM Narrative Medical decision making narrative: 67-year-old male chronically on oxygen complaining of increasing shortness of br eath and hypoxia at home. He has a few scattered wheezes. He will be treated with aerosols. Will be worked up for cause of his shortness of breath including possible URI versus pneumonia versus CHF versus pulmonary emboli is in history of pulm emboli in the past. Also has a cardiac history. Due to the elevated D-dimer and history of prior pulmonary emboli and hypoxia CTA be obtained of his chest. Chest x-ray may reveal a right-sided pneumonia. That should be more clarified on the CTA. Repeat exam patient is resting comfortably at 11:52 AM. Awaiting his CTA. He has chronic back pain he normally takes [place] be given to here for his back pain. Patient is a bradycardic heart rate in the runs from the high 30s to 60. States it hasbeen low in the past but they never discussed with him a pacemaker or anything like that. Patient be started on Rocephin and Zithromax for suspected pneumonia on CT and chest x-ray. He was treated with aerosols for his wheezing. Given [place] for his chronic back pain. History & Record Review Discussion w/independent historian: Patient Additional record(s) reviewed:: Prior inpatient record, Prior outpatient record, Prior ED visit and Prior labs Lab Data Attestation: I reviewed the patient's lab results. Lab results narrative: CBC shows white count 10.9. H&H 10.1 and 32. Platelets 215. PT/INR PTT are 14, 1 and 38. His D-dimer is elevated at 1.2. Chemistries unremarkable gap of 7. Normal BUN and creatinine of 17 and 0.8. Glucose 117. Troponin is normal at 11. BNP is 288. Labs: Laboratory Results - last 24 hr 03/08/23 03/08/23 03/08/23 10:40 10:40 10:40 WBC 10.9 RBC 3.23 L Hgb 10.1 L Hct 32.0 L MCV 99.1 H MCH 31.3 MCHC 31.6 L RDW Std Deviation 56.8 H RDW Coeff of Justine 16.3 H Plt Count 215 MPV 8.1 Immature Gran % (Auto) 0.600 Neut % (Auto) 81.8 H Lymph % (Auto) 8.2 L [place] % (Auto) 7.9 Eos % (Auto) 1.1 Baso % (Auto) 0.4 Absolute Neuts (auto) 8.9 H Absolute Lymphs (auto) 0.90 Nucleated RBC % 0 PT 14.4 INR 1.1 APTT 38.4 H D-Dimer Quant (PE/DVT) 1.20 H* Sodium 140 Potassium 4.5 Chloride 102 Carbon Dioxide 31.0 Anion Gap 7 BUN 17 Creatinine 0.83 Estim Creat Clear Calc 94.50 Est GFR (MDRD) Af Amer 119 Est GFR (MDRD) Non-Af 99 BUN/Creatinine Ratio 20.5 H Glucose 117 H Calcium 9.8 Troponin I High Sens 11 B-Natriuretic Peptide 03/08/23 10:40 WBC RBC Hgb Hct MCV MCH MCHC RDW Std Deviation RDW Coeff of Justine Plt Count MPV Immature Gran % (Auto) Neut % (Auto) Lymph % (Auto) [place] % (Auto) Eos % (Auto) Baso % (Auto) Absolute Neuts (auto) Absolute Lymphs (auto) Nucleated RBC % PT INR APTT D-Dimer Quant (PE/DVT) Sodium Potassium Chloride Carbon Dioxide Anion Gap BUN Creatinine Estim Creat Clear Calc Est GFR (MDRD) Af Amer Est GFR (MDRD) Non-Af BUN/Creatinine Ratio Glucose Calcium Troponin I High Sens B-Natriuretic Peptide 288.9 H Radiography Chest X-Ray - ED: 1 View, Heart, Mediastinum, Bony Structures, Chronic Changes and Right Infiltrate Diagnostic Testing: Clinical Impression(s) from Imaging Studies Chest X-Ray 03/08/23 10:40 IMPRESSION: New heterogeneous patchy infiltrate in the right mid lung as well as in the left perihilar region. Radiographic follow-up is recommended. Electronically Signed: Ayad Sexton MD at 10:55 EDT , Chest CTA 03/08/23 11:40 IMPRESSION: New focal infiltrate/ground glass appearance in the right upper lobe and right middle lobe as well as the left perihilar region. Minimal bilateral pleural effusions right greater than left with bibasilar atelectasis superimposed on scarring. No evidence of pulmonary embolism. Electronically Signed: Ayad Sexton MD at 12:29 EDT , Chest x-ray, portable, single view, interpreted both by myself and the radiologist shows a right midlung density that very well could be an infiltrate such as pneumonia. Due to elevated D-dimer a CTA is also being obtained which should help clarify this. Rhythm Strip Rhythm Strip: Atrial flutter Rate: 49 Ectopy: None EKG Initial EKG: Attestation: I personally reviewed and interpreted this EKG as follows: Interpretation: Atrial Flutter Comments: Atrial flutter rate of 49. No acute signs of CA or ischemia. Discharge Plan Dx/Rx/DC Orders Clinical Impression: Hypoxia, Adult failure to thrive, Pneumonia, Hx of pulmonary embolus, Bradycardia, Atrial flutter Disposition Disposition: Acute Care Hospital [facility]
[2023-03-08] MEDS: Albuterol 2.5 MG/3 ML VIAL.NEB. INHALATION (10:35)
[2023-03-08] MEDS: Ipratropium/Albuterol Sulfate 3 ML AMPUL.NEB INHALATION ×2 (10:35→19:09)
--- NOTE | 2023-03-08 10:40 | RAD_ITS ---
STUDY: X-RAY CHEST REASON FOR EXAM: Male, 67 years old. Shortness of breath. Productive cough. Wheezing. TECHNIQUE: Single AP portable view of the chest. COMPARISON: Comparison is made with prior study dated September 30, 2022. FINDINGS: EKG electrodes are seen. New patchy infiltrate is seen in the right midlung. Increased markings also seen in the left parahilar region. There is no demonstrated pleural abnormality. Normal size heart. Normal mediastinum and brennen. Normal visualized pulmonary arteries. There is atherosclerotic calcification of the aortic arch with tortuosity. Screw and dianne fixation of the mid thoracic spine. Normal visualized ribs, clavicles, and shoulders. There is no demonstrated abnormality of the visualized soft tissue structures of the upper abdomen. RAD/Chest 1 View (Portable) IMPRESSION: New heterogeneous patchy infiltrate in the right mid lung as well as in the left perihilar region. Radiographic follow-up is recommended. Electronically Signed: Ayad Sexton MD at 10:55 EDT ,
[2023-03-08 10:48] LABS: Absolute Neutrophil Count 8.9 X10^3/uL (2.0-7.7); Basophil# 0.04 X10^3/uL; Basophil% 0.4 % (0-1); Eosinophil# 0.12 X10^3/uL; Eosinophils% 1.1 % (0-5); Hemoglobin 10.1 g/dL (13.0-16.5); Lymphocyte % 8.2 % (19-41); Mean Corp Hgb Conc 31.6 g/dL (32-36); Mean Corpuscular Hgb 31.3 pg (27.0-32.0); Mean Corpuscular Volume 99.1 fL (80-94); Mean Platelet Vol. 8.1 fl (6.2-12.0); Monocyte# 0.86 X10^3/uL; Monocyte% 7.9 % (0-10); NRBC Flagged by Analyzer 0 % (0-5); Neutrophil # 8.94 X10^3/uL (2.7-7.7); Neutrophil % 81.8 % (47-70); Platelet Count 215 K/mm3 (150-450); RBC Distribution Width CV 16.3 % (11.6-14.6); RBC Distribution Width SD 56.8 fl (35.1-43.9); Red Blood Count 3.23 M/mm3 (4.6-6.2); White Blood Count 10.9 K/mm3 (4.4-11.0)
[2023-03-08 10:58] LABS: International Normalized Ratio 1.1; Prothrombin Time (Protime)PT. 14.4 SECONDS (11.7-14.9)
[2023-03-08 10:59] LABS: Partial Thromboplast Time 38.4 Seconds (24.1-36.2)
[2023-03-08 11:07] LABS: BNP,B-Type NATRIURETIC PEPTIDE 288.9 pg/mL (0-100)
[2023-03-08 11:10] LABS: Anion Gap 7 (5-15); BUN 17 mg/dL (7-18); BUN/Creat Ratio 20.5 RATIO (10-20); Calcium,Total 9.8 mg/dL (8.5-10.1); Chloride 102 mmol/L (98-107); Creatinine, Serum 0.83 mg/dL (0.70-1.30); EST Glomerular Filtration Rate 99 mL/min (>60); Est Glom Filt Rate - Afr Amer 119 mL/min (>60); Glucose 117 mg/dL (74-106); Potassium 4.5 mmol/L (3.5-5.1); Sodium Level 140 mmol/L (136-145); Troponin-I HS 11 pg/mL (3.0-78.0)
--- NOTE | 2023-03-08 11:40 | CT_ITS ---
STUDY: CTA CHEST REASON FOR EXAM: Male, 67 years old. Hypoxia and shortness of breath. History of pulmonary emboli. RADIATION DOSAGE (If Supplied By Facility): CTDIvol = ( 19.79 ) mGy, DLP = ( 548.56 ) mGycm TECHNIQUE: The examination was performed with the intravenous administration of IV 100mL [id number]-[id number]. Post-processing of the angiographic images was performed, with multiplanar reformation and 3D reconstruction. Individualized dose optimization techniques were used for this CT. COMPARISON: Comparison is made with prior study September 30, 2022. Comparison is also made with prior chest radiograph done earlier today. FINDINGS: Normal enhancement of the main pulmonary artery and right and left pulmonary arteries. Normal enhancement of the bilateral peripheral pulmonary arteries. There is no demonstrated pulmonary embolism. There is atherosclerotic calcification of the aortic arch with tortuosity. There is no demonstrated aortic dissection. There are mild calcifications of the coronary arteries. Normal mediastinum. Normal hilar regions. Normal visualized trachea and bronchi. The lungs are well expanded. There is evidence of groundglass appearance in the right upper lobe as well as the right middle lobe. Mild degree of increased ground glass appearance is also seen in the parahilar region of the left upper lobe. Minimal bilateral pleural effusions slightly worse on the right side with bibasilar atelectasis superimposed on chronic scarring. Normal chest wall structures. There are degenerative changes of thoracic spine. Status post interpedicular screw and dianne fixation of the mid dorsal vertebrae. Almost complete collapse of the T7 vertebrae. The patient is status post cholecystectomy. CT/CTA Chest W/WO Contrast IMPRESSION: New focal infiltrate/ground glass appearance in the right upper lobe and right middle lobe as well as the left perihilar region. Minimal bilateral pleural effusions right greater than left with bibasilar atelectasis superimposed on scarring. No evidence of pulmonary embolism. Electronically Signed: Ayad Sexton MD at 12:29 EDT ,
[2023-03-08] MEDS: HYDROcodone Bitartrate/Apap 5/325 Tablet PO ×2 (12:38→21:09)
[2023-03-08] MEDS: Ceftriaxone 1 GM/50 ML BAG IV (13:50)
--- NOTE | 2023-03-08 14:03 | PCM.HP.STD ---
HPI - General General Date of Admission: 03/08/23 Date of Service: 03/08/23 Chief Complaint: Increasing shortness of breath HPI Narrative Luan Santa is a 67-year-old male with a history of hypertension, PE/DVT, FELA, and psoriasis who presented to [facility] 03/08/2023 with worsening shortness of breath for 2 days with lowest home O2 sat of 70%. Patient was 88% at rest and required 3 L of O2 to be in the low 90s. Heart rate in the 50s. CTA obtained showed no PE but infiltrates in right and left and hospitalist consulted for admission for pneumonia. He was given Rocephin and azithromycin as well as DuoNebs in ED. evaluated patient at bedside and he confirmed the increasing shortness of breath over the past several days however reports somewhat longer period of shortness of breath on exertion especially when he wakes up in the morning. He did reveal that his CPAP broke about a month ago and he has not been able to obtain a new one but would like to. Has had cough and is produced what looked like brown butter 1 or 2 times but usually in chunks. Denies chest pain, has some swelling in his legs which she reports is not necessarily new. No fevers or chills that he notes. Has had some loose stools over the past several days as well. No sick contacts. [facility] Medical History (Updated 03/08/23 @ 14:[address] Apryl Fung MD) Atrial flutter Cancer Hx of pulmonary embolus Hypertension FELA (obstructive sleep apnea) Psoriasis Home Medications amlodipine 10 mg tablet 10 mg PO QHS Blood pressure 10/14/19 [History Last Taken 10/17/20] escitalopram oxalate 20 mg tablet 10 mg PO DAILY Check with primary doctor 10/14/19 [History Last Taken 10/22/22] bupropion HCl 75 mg tablet 75 mg PO DAILY Depression 09/18/22 [History Last Taken Unknown] carvedilol 25 mg tablet 25 mg PO BID Check with primary doctor 09/18/22 [History Last Taken 10/22/22] bethanechol chloride 25 mg tablet 25 mg PO TID 30 days #90 tabs 01/07/23 [Rx Last Taken Unknown] cholestyramine (with sugar) 4 gram powder for susp in a packet 4 g PO DAILY@1000 30 days #30 ea 01/07/23 [Rx Last Taken Unknown] cyclobenzaprine 5 mg tablet 5 mg PO TID PRN PRN Muscle Spasm 30 days #90 tabs 01/07/23 [Rx Last Taken Unknown] famotidine 20 mg tablet 20 mg PO BID 30 days #60 tabs 01/07/23 [Rx Last Taken Unknown] ferrous sulfate 325 mg (65 mg iron) tablet (FeroSul) 325 mg PO DAILY@1200 30 days #30 tabs 01/07/23 [Rx Last Taken Unknown] fluticasone propionate 50 mcg/actuation nasal spray,suspension 2 spray NASAL DAILY 30 days #16 grams 01/07/23 [Rx Last Taken Unknown] gabapentin 600 mg tablet 600 mg PO TIDCM 30 days #90 tabs 01/07/23 [Rx Last Taken Unknown] lidocaine 5 % topical patch 1 patch topical 0800 30 days #30 ea 01/07/23 [Rx Last Taken Unknown] magnesium chloride 64 mg (magnesium chloride) tablet,delayed release (Mag 64) 128 mg PO DAILY 30 days #60 tabs 01/07/23 [Rx Last Taken Unknown] vit A 300 mcg-C 200 mg-E 27 mg-lutein 2 mg and minerals tablet (Healthy Eyes) 1 cap PO DAILYCM #0 tabs 01/07/23 [Rx Last Taken Unknown] albuterol sulfate 90 mcg/actuation aerosol inhaler 2 puff inhalation Q6H sob 01/14/23 [History Last Taken Unknown] losartan 100 mg tablet 100 mg PO DAILY 01/14/23 [History Last Taken Unknown] acetaminophen 325 mg tablet 650 mg PO Q6H PRN PRN Pain 1-10 Or Fever>100.7 #0 tabs 01/17/23 [Rx Last Taken Unknown] docusate sodium 100 mg capsule 100 mg PO BID #0 caps 01/17/23 [Rx Last Taken Unknown] gabapentin 600 mg tablet 600 mg PO TID #0 tabs 01/17/23 [Rx Last Taken Unknown] hydrocodone-acetaminophen 5-325mg 5mg-325mg 1 tab PO Q4H PRN PRN Moderate to severe pain 4-10 2 days #8 tabs 01/17/23 [Rx Last Taken Unknown] polyethylene glycol 3350 17 gram oral powder packet 17 g PO DAILY #0 ea 01/17/23 [Rx Last Taken Unknown] Allergy/AdvReac Type Severity Reaction Status Date / Time lorazepam Allergy Other Verified 03/08/23 09:49 Penicillins Allergy Itching Verified 03/08/23 09:49 poison ever extract Allergy Itching Verified 03/08/23 09:49 tizanidine [From Zanaflex] Allergy Other Verified 03/08/23 09:49 Family History Other Brain aneurysm Heart disease Prostate CA Surgical History History of carpal tunnel surgery History of herniorrhaphy Hx of appendectomy Hx of cholecystectomy Status post laminectomy Social History household members: spouse Smoking Status: Former smoker alcohol intake: current alcohol intake frequency: 3 or more drinks per day substance use type: does not use ROS ROS Narrative General: Denies fever/chills feels cold right now HENT: Denies headache, denies stuffy nose, denies sore throat EYES: Denies changes in vision Resp: Has had cough with some sputum and increasing shortness of breath Cardiac: Denies chest pain GI: Denies abdominal pain, has had some loose stool, denies nausea/vomiting : Denies changes in urination Extremity: Swelling in his lower extremities though he has difficulty telling this is new or not MSK: Denies weakness Neuro: Denies any numbness/tingling Heme: Denies any bleeding or bruising Skin: Denies rashes Psychiatric: No complaints voiced Vital Signs Vital Signs Vital Signs: 03/08/23 09:49 03/08/23 09:53 03/08/23 09:53 Temperature 98.1 F Temperature Source Oral Pulse Rate 56 L Respiratory Rate 19 H Respiratory Effort Short of Breath Labored Accessory Muscle Use Blood Pressure Blood Pressure Mean Pulse Ox 88 89 Oxygen Delivery Method Room Air Nasal Cannula Nasal Cannula Oxygen Flow Rate (L/min) 3 4 03/08/23 09:53 03/08/23 10:21 03/08/23 10:35 Temperature 98.1 F Temperature Source Oral Pulse Rate 56 L Respiratory Rate 17 Respiratory Effort Blood Pressure 125/58 H Blood Pressure Mean 80 Pulse Ox 93 96 Oxygen Delivery Method Nasal Cannula Nasal Cannula Nasal Cannula Oxygen Flow Rate (L/min) 4 2 4 03/08/23 10:35 03/08/23 12:38 03/08/23 13:07 Temperature 97.8 F Temperature Source Temporal Pulse Rate 41 L 45 L 48 L Respiratory Rate 20 H 16 16 Respiratory Effort Blood Pressure 134/78 H 143/78 H Blood Pressure Mean 96 99 Pulse Ox 97 98 Oxygen Delivery Method Room Air Nasal Cannula Oxygen Flow Rate (L/min) 2 Weight Weight: 139.2 kg Body Mass Index (BMI) 42.7 Physical Exam Narrative General: Alert, oriented, no apparent distress HEENT: Atraumatic, normocephalic Eyes: Anicteric, normal conjunctiva, extraocular movements grossly intact Neck: Supple Respiratory: Sounds slightly diminished at the bases with some crackles, transmitted upper airway sounds, slight increased work of breathing Cardiovascular: Regular rate and rhythm GI: Soft, nontender, nondistended Extremities: Trace to 1+ bilateral lower extremity pitting edema Musculoskeletal: Moving all extremities Neuro: No overt focal neurological deficits Skin: No rashes appreciated Psych: Cooperative Results Lab / Micro Data Result Diagrams: 03/08/23 10:40 03/08/23 10:40 Labs: Laboratory Results - last 24 hr 03/08/23 10:40: WBC 10.9, RBC 3.23 L, Hgb 10.1 L, Hct 32.0 L, MCV 99.1 H, MCH 31.3, MCHC 31.6 L, RDW Std Deviation 56.8 H, RDW Coeff of Justine 16.3 H, Plt Count 215, MPV 8.1, Immature Gran % (Auto) 0.600, Neut % (Auto) 81.8 H, Lymph % (Auto) 8.2 L, [place] % (Auto) 7.9, Eos % (Auto) 1.1, Baso % (Auto) 0.4, Absolute Neuts (auto) 8.9 H, Absolute Lymphs (auto) 0.90, Nucleated RBC % 0 03/08/23 10:40: PT 14.4, INR 1.1, APTT 38.4 H, D-Dimer Quant (PE/DVT) 1.20 H* 03/08/23 10:40: Sodium 140, Potassium 4.5, Chloride 102, Carbon Dioxide 31.0, Anion Gap 7, BUN 17, Creatinine 0.83, Estim Creat Clear Calc 94.50, Est GFR (MDRD) Af Amer 119, Est GFR (MDRD) Non-Af 99, BUN/Creatinine Ratio 20.5 H, Glucose 117 H, Calcium 9.8, Troponin I High Sens 11 03/08/23 10:40: B-Natriuretic Peptide 288.9 H Rhythm Strip Rhythm Strip: Atrial flutter Rate: 49 Ectopy: None Radiology Impression Chest X-Ray 03/08/23 10:40 IMPRESSION: New heterogeneous patchy infiltrate in the right mid lung as well as in the left perihilar region. Radiographic follow-up is recommended. Electronically Signed: Ayad Sexton MD at 10:55 EDT , Chest CTA 03/08/23 11:40 IMPRESSION: New focal infiltrate/ground glass appearance in the right upper lobe and right middle lobe as well as the left perihilar region. Minimal bilateral pleural effusions right greater than left with bibasilar atelectasis superimposed on scarring. No evidence of pulmonary embolism. Electronically Signed: Ayad Sexton MD at 12:29 EDT , Assessment & Plan Assessment/Plan (1) Pneumonia: (2) Hx of pulmonary embolus: (3) Atrial flutter: (4) Back pain: (5) Obstructive sleep apnea: (6) Hypertension: PLAN: Plan #Acute on chronic hypoxia secondary to community-acquired pneumonia -Increasing shortness of breath with decreased O2 sat into the 70s at home. He reports that he is not prescribed home oxygen but has been wearing it at night and sometimes during the day and he still had a tank/supplies from when he was sent home with it after pneumonia -D-dimer 1.2 in the ED so CTA ordered -CTA showed no PE but there was focal infiltrate/groundglass appearance of right upper lobe and right middle lobe as well as left perihilar region with minimal bilateral effusions right greater than left with some atelectasis -BNP was slightly elevated at 288.9, troponin normal. Last echo September 2022 showed mild concentric left ventricular hypertrophy with an EF of 60% and no regional wall motion abnormalities, diastolic function not commented on. -Does have swelling in bilateral lower extremities as well as crackles and some effusions on CT, will repeat echo as it seems there may be a component of fluid overload -Daily weights, I's and O's -DuoNebs and as needed albuterol -Sputum culture, will get COVID and flu, respiratory panel as well as enteric panel given his concurrent diarrhea -Urine antigens -Mucinex, I/S -Rocephin and azithromycin #FELA -Previously was compliant with his home CPAP per patient however it broke a month ago, suspect that this is contributing to #1 -We will order nightly NIPPV while here and will need to follow-up with his provider to get new CPAP coordinated #History of PE/DVT -Reports he had PEs when he had COVID and was on Eliquis for a period of time and was taken off of it due to presuming they were provoked -DVTs he endorsed were perioperatively and he had a IVC filter placed and supposed to have this removed at a period of time -He is unaware of any contraindication anticoagulation #Afib/aflutter w/ low HR -EKG showed heart rate of 49 with a flutter with variable block and is on telemetry there episodes that appear to be A-fib -CHADS2-VASc score indicates he is a candidate for anticoagulation which she is open to -We will start him on Eliquis -At periods will have heart rate dipped briefly down to the 30s, will decrease beta-royal but will continue Coreg given the A-fib/a flutter #DVT ppx: Starting Eliquis Apryl Fung MD Time spent in the patient's overall evaluation,decision-making process, review of diagnostic data, adjustment of management, discussion with other providers, nursing nursing and ancillary staff involved in patient's care documentation, 60 minutes Charges/Coding Visit Charges Inpatient E&M: 72047 Init Hosp L2
--- NOTE | 2023-03-08 14:28 | CM.ED ---
Social Work Note Referral Source: [facility] EBONIE LOOMIS was contacted by Miranda with [facility] to review engagement in services with patient. Miranda reports patient has been active with [facility] for about a week, working towards patient participating in a sleep study and discussing private pay HHC options with [facility]. EBONIE updated Miranda of plan for patient to be admitted. Miranda to inform [facility] staff. EBONIE Face to Face with patient for initial transition planning/care coordination assessment. EBONIE introduced self and role at [facility]. Patient lying in bed, alert and oriented. Patient willing to participate in assessment and is able to answer all questions appropriately.? Care providers, pharmacy, and demographics verified. Patient wishes to discharge home and resume [facility] if able.?Patient states he is open to discussing SNF options if it is recommended. Patient inquiring about a meal as he hasn't eaten yet today, EBONIE informed TONY Cronin of request, RN to follow up with patient. CM to follow for discharge planning needs that may arise. PCP: Eri Specialists: Nellie, neurosurgery; Jaky, medical reception specialist; urologist, unable to recall name; patient also reports seeing a specialist once a year regarding his aorta Preferred [facility]acy: [facility] Insurance: [facility] and [employer] Insurance Prescription Benefit:?yes Living Will/HPOA: not completed, patient reports no nor children but has three siblings. EBONIE explained patient's siblings would be responsible for making medical choices if patient was unable to, patient reports I'm fine with that. LNOK: Andre Kiet, brother; Lidia Salgado, friend; Adrianna Burgess, friend Living Arrangements: Patient lives alone in two story home with two steps to enter with a rail. Patient reports he is only using the main floor as he has been unable to navigate the stairs. Patient explained he does not have access to his laundry room and hasn't showered for a week. Transportation: Patient's friend Lidia has been assisting DME/HHC: Patient reports having the following DME: shower chair, bedside commode, wheel chair, walker, transfer boards, bed rails and recliner chair. Patient is active with [facility] and looking into private paying with [facility]. Patient reports the following SNF placements: [facility], [facility] and [facility]. Disposition Plan: d/c home and resume [facility] but open to SNF if recommended [facility] updated patient is being admitted MARTHA Yuen
--- NOTE | 2023-03-08 15:40 | NURSING ---
PT A&O X3, COMMUNICATING W/ FAMILY BY HIS CELL PHONE
--- NOTE | 2023-03-08 15:53 | NURSING ---
PT TRANSFERRED TO [facility] PER ADMISSION ORDERS ER REPORT SENT TO THAT UNIT
--- NOTE | 2023-03-08 16:26 | ECHOCS_ITS ---
Reason For Study: DYSPNEA/SOB Procedure This was a 2D Doppler, Color Flow transthoracic echocardiogram. The study was technically difficult. Due to body habitus. Contrast injection was performed. Exam performed portable in patient room. Left Ventricle Normal LV size. The estimated ejection fraction is 65 %. No evidence for diastolic dysfunction. No regional wall motion abnormalities noted. Right Ventricle Normal RV size. Normal systolic function. Atria Normal left atrium. Normal right atrium. No doppler evidence for ASD. Mitral Valve There is no mitral valve stenosis. No mitral valve insufficiency. Tricuspid Valve There is no tricuspid stenosis. Trivial tricuspid valve insufficiency. Unable to estimate RV systolic pressure due to insufficient tricuspid regurgitant envelope. Aortic Valve Trisinus/trileaflet aortic valve. There is no aortic stenosis. No aortic valve insufficiency. Pulmonic Valve There is no pulmonic valvular stenosis. No pulmonic valve insufficiency. Great Vessels Normal aortic root. Pericardium/Pleural No pericardial effusion. MMode/2D Measurements & Calculations LVIDd: 5.3 cm IVSd: 1.7 cm Ao root diam: 4.5 cm LVIDs: 2.7 cm LVPWd: 1.3 cm RVDd: 4.0 cm FS: 48.6 % LAV(MOD-bp): 111.0 ml LVAd ap4: 35.8 cm2 LVAd ap2: 35.2 cm2 LAV(MOD-bp) Indexed: 44.3 ml/m2 LVLd ap4: 10.0 cm LVLd ap2: 9.3 cm LAV(MOD-sp2): 125.3 ml EDV(MOD-sp4): 105.8 ml EDV(MOD-sp2): 110.2 ml LAV(MOD-sp4): 94.1 ml EDV(sp4-el): 108.8 ml EDV(sp2-el): 113.9 ml LVAs ap4: 22.5 cm2 LVAs ap2: 19.8 cm2 LVLs ap4: 8.5 cm LVLs ap2: 8.0 cm ESV(MOD-sp4): 49.1 ml ESV(MOD-sp2): 41.3 ml ESV(sp4-el): 51.0 ml ESV(sp2-el): 41.6 ml EF(MOD-sp4): 53.6 % EF(MOD-sp2): 62.5 % EF(sp4-el): 53.1 % SV(MOD-sp4): 56.7 ml SV(MOD-sp2): 68.9 ml SV(sp4-el): 57.8 ml LA dimension(2D): 4.8 cm LA A4 area: 29.5 cm2 RA A4 area: 19.4 cm2 Doppler Measurements & Calculations MV E max haresh: 122.6 cm/sec Lat Peak E' Haresh: 14.3 cm/sec Med Peak E' Haresh: 8.5 cm/sec E/E' lat: 8.5 E/E' med: 14.5 Ao V2 max: 174.5 cm/sec LV V1 max: 102.0 cm/sec PA V2 max: 138.4 cm/sec Ao max P.2 mmHg LV V1 max P.2 mmHg Ao V2 mean: 113.4 cm/sec LV V1 mean P.3 mmHg Ao mean P.0 mmHg LV V1 mean: 69.4 cm/sec Ao V2 VTI: 37.5 cm LV V1 VTI: 27.3 cm AV (velocity ratio): 0.73 ECHO/Echo Complete W/ Contrast Interpretation Summary The estimated ejection fraction is 65 %. No evidence for diastolic dysfunction. Ordering Physician: Apryl Fung Referring Physician: Arleen Hwang Performed By: Skylar Lieberman, RDCS, RVT
[2023-03-08] MEDS: Famotidine 20 MG Tablet PO (20:49)
[2023-03-08] MEDS: guaiFENesin 1,200 MG Tablet 1200 MG PO (20:49)
[2023-03-08] MEDS: 0.9% Saline Lock 10 ML Syringe IV (20:49)
[2023-03-08] MEDS: amLODIPine 10 MG Tablet PO (20:49)
[2023-03-08] MEDS: BETHANECHOL CHLORIDE 25 MG TABLET PO (20:49)
[2023-03-08] MEDS: APIXABAN 5 MG TABLET PO (20:49)
[2023-03-09] VITALS (16 sets, daily range): BP systolic 112–142; BP diastolic 58–74; PULSE 49–56; RESP 14–21; TEMP 36.1–36.4; O2SAT 89–97; BMI 42.0
[2023-03-09] MEDS: Ipratropium/Albuterol Sulfate 3 ML AMPUL.NEB INHALATION ×4 (01:49→19:37)
[2023-03-09] MEDS: HYDROcodone Bitartrate/Apap 5/325 Tablet PO ×4 (02:51→21:07)
[2023-03-09] MEDS: BETHANECHOL CHLORIDE 25 MG TABLET PO ×2 (05:32→21:07)
[2023-03-09] MEDS: Albuterol 2.5 MG/3 ML VIAL.NEB. INHALATION ×2 (05:37→21:33)
[2023-03-09] MEDS: 0.9% Saline Lock 10 ML Syringe IV (06:40)
--- NOTE | 2023-03-09 07:37 | PCM.PN.HOSP ---
Reason for Visit Reason for Visit: Diagnoses Obstructive sleep apnea (adult) (pediatric) (03/08/23) Essential (primary) hypertension (03/08/23) Unspecified atrial flutter (03/08/23) Pneumonia, unspecified organism (03/08/23) Dorsalgia, unspecified (03/08/23) Personal history of pulmonary embolism (03/08/23) Subjective Subjective Continues to have difficulty with his breathing, feels much better when he is on BiPAP Objective Data Objective Data Vital Signs: Vital Signs Temp Pulse Resp BP Pulse Ox O2 Del Method O2 Flow Rate 97.0 F L 54 L 18 142/71 H 93 Nasal Cannula 4 03/09/23 02:48 03/09/23 05:37 03/09/23 05:37 03/09/23 02:48 03/09/23 05:10 03/09/23 05:10 03/09/23 05:10 FiO2 40 03/09/23 02:48 Oxygen Flow Rate (L/min) 4 Oxygen Delivery Method Nasal Cannula Weight: 136.6 kg Body Mass Index (BMI) 42.0 Intake & Output: Intake and Output for Last 24 Hours 03/07/23 03/08/23 03/09/23 23:59 23:59 23:59 Intake Total 305 / 505 320 / 320 Output Total 600 / 600 Balance 305 / 105 -280 / -280 Lab / Micro Data Result Diagrams: 03/09/23 08:18 03/09/23 08:18 Labs: Laboratory Results - last 24 hr 03/08/23 10:40: WBC 10.9, RBC 3.23 L, Hgb 10.1 L, Hct 32.0 L, MCV 99.1 H, MCH 31.3, MCHC 31.6 L, RDW Std Deviation 56.8 H, RDW Coeff of Justine 16.3 H, Plt Count 215, MPV 8.1, Immature Gran % (Auto) 0.600, Neut % (Auto) 81.8 H, Lymph % (Auto) 8.2 L, [place] % (Auto) 7.9, Eos % (Auto) 1.1, Baso % (Auto) 0.4, Absolute Neuts (auto) 8.9 H, Absolute Lymphs (auto) 0.90, Nucleated RBC % 0 03/08/23 10:40: PT 14.4, INR 1.1, APTT 38.4 H, D-Dimer Quant (PE/DVT) 1.20 H* 03/08/23 10:40: Sodium 140, Potassium 4.5, Chloride 102, Carbon Dioxide 31.0, Anion Gap 7, BUN 17, Creatinine 0.83, Estim Creat Clear Calc 94.50, Est GFR (MDRD) Af Amer 119, Est GFR (MDRD) Non-Af 99, BUN/Creatinine Ratio 20.5 H, Glucose 117 H, Calcium 9.8, Troponin I High Sens 11 03/08/23 10:40: B-Natriuretic Peptide 288.9 H 03/08/23 16:55: COVID-19 (ELENI) Not Detected Micro: Microbiology 03/08/23 16:55 Mucosa - Nose Respiratory Panel (PCR) - Final Radiography Diagnostic Testing: Radiology Impression Chest X-Ray 03/08/23 10:40 IMPRESSION: New heterogeneous patchy infiltrate in the right mid lung as well as in the left perihilar region. Radiographic follow-up is recommended. Electronically Signed: Ayad Sexton MD at 10:55 EDT , Chest CTA 03/08/23 11:40 IMPRESSION: New focal infiltrate/ground glass appearance in the right upper lobe and right middle lobe as well as the left perihilar region. Minimal bilateral pleural effusions right greater than left with bibasilar atelectasis superimposed on scarring. No evidence of pulmonary embolism. Electronically Signed: Ayad Sexton MD at 12:29 EDT , Rhythm Strip Rhythm Strip: Atrial flutter Rate: 49 Ectopy: None Physical Exam Narrative General: Alert, oriented, no apparent distress HEENT: Atraumatic, normocephalic Eyes: Anicteric, normal conjunctiva, extraocular movements grossly intact Neck: Supple Respiratory: Diffuse wheezes Cardiovascular: Heart rate 40s to 50s and alternates between flutter and fib GI: Soft, nontender, nondistended Extremities: Trace to 1+ bilateral lower extremity pitting edema Musculoskeletal: Moving all extremities Neuro: No overt focal neurological deficits Skin: No rashes appreciated Psych: Cooperative Assessment & Plan Assessment/Plan (1) Pneumonia: (2) Hx of pulmonary embolus: (3) Atrial flutter: (4) Back pain: (5) Obstructive sleep apnea: (6) Hypertension: PLAN: Plan #Acute on chronic hypoxia secondary to community-acquired pneumonia -Increasing shortness of breath with decreased O2 sat into the 70s at home. He reports that he is not prescribed home oxygen but has been wearing it at night and sometimes during the day and he still had a tank/supplies from when he was sent home with it after pneumonia -D-dimer 1.2 in the ED so CTA ordered -CTA showed no PE but there was focal infiltrate/groundglass appearance of right upper lobe and right middle lobe as well as left perihilar region with minimal bilateral effusions right greater than left with some atelectasis -BNP was slightly elevated at 288.9, troponin normal. Last echo September 2022 showed mild concentric left ventricular hypertrophy with an EF of 60% and no regional wall motion abnormalities, diastolic function not commented on. -Does have swelling in bilateral lower extremities as well as crackles and some effusions on CT, will repeat echo as it seems there may be a component of fluid overload -Daily weights, I's and O's -DuoNebs and as needed albuterol -Sputum culture, will get COVID and flu, respiratory panel as well as enteric panel given his concurrent diarrhea -Urine antigens -Mucinex, I/S -Rocephin and azithromycin -03/09: COVID and respiratory panel negative. Continue antibiotics, echo with EF of 60% no evidence of diastolic dysfunction #FELA -Previously was compliant with his home CPAP per patient however it broke a month ago, suspect that this is contributing to #1 -We will order nightly NIPPV while here and will need to follow-up with his provider to get new CPAP coordinated #History of PE/DVT -Reports he had PEs when he had COVID and was on Eliquis for a period of time and was taken off of it due to presuming they were provoked -DVTs he endorsed were perioperatively and he had a IVC filter placed and supposed to have this removed at a period of time -He is unaware of any contraindication anticoagulation #Afib/aflutter w/ low HR -EKG showed heart rate of 49 with a flutter with variable block and is on telemetry there episodes that appear to be A-fib -CHADS2-VASc score indicates he is a candidate for anticoagulation which she is open to -We will start him on Eliquis -At periods will have heart rate dipped briefly down to the 30s, will decrease beta-royal but will continue Coreg given the A-fib/a flutter #DVT ppx: Starting Eliquis Apryl Fung MD Time spent in the patient's overall evaluation,decision-making process, review of diagnostic data, adjustment of management, discussion with other providers, nursing nursing and ancillary staff involved in patient's care documentation, 30 minutes Charges/Coding Visit Charges Inpatient E&M: 73831 Subs Hosp L2
[2023-03-09 08:30] LABS: Absolute Lymphocyte Count 1.27 X10^3/uL (0.83-4.51); Absolute Neutrophil Count 7.4 X10^3/uL (2.0-7.7); Basophil# 0.03 X10^3/uL; Basophil% 0.3 % (0-1); Eosinophil# 0.12 X10^3/uL; Eosinophils% 1.2 % (0-5); Hematocrit 31.9 % (40-54); Hemoglobin 9.8 g/dL (13.0-16.5); Lymphocyte # 1.27 X10^3/ul (0.83-4.51); Lymphocyte % 13.1 % (19-41); Mean Corp Hgb Conc 30.7 g/dL (32-36); Mean Corpuscular Hgb 31.3 pg (27.0-32.0); Mean Corpuscular Volume 101.9 fL (80-94); Mean Platelet Vol. 8.4 fl (6.2-12.0); Monocyte# 0.86 X10^3/uL; Monocyte% 8.8 % (0-10); NRBC Flagged by Analyzer 0 % (0-5); Neutrophil # 7.41 X10^3/uL (2.7-7.7); Neutrophil % 76.2 % (47-70); Platelet Count 200 K/mm3 (150-450); RBC Distribution Width CV 16.6 % (11.6-14.6); RBC Distribution Width SD 60.6 fl (35.1-43.9); Red Blood Count 3.13 M/mm3 (4.6-6.2); White Blood Count 9.7 K/mm3 (4.4-11.0)
--- NOTE | 2023-03-09 08:40 | CPS ---
SMI and Pep therapy held due to pt being on Bipap
[2023-03-09 08:54] LABS: AST(SGOT) 8 U/L (15-37); Alanine Aminotransfer ALT/SGPT 14 U/L (16-61); Albumin, Serum 3.2 g/dL (3.2-5.0); Alkaline Phosphatase 100 U/L (45-117); Anion Gap 4 (5-15); BUN 15 mg/dL (7-18); BUN/Creat Ratio 23.8 RATIO (10-20); Calcium,Total 9.5 mg/dL (8.5-10.1); Chloride 105 mmol/L (98-107); Creatinine, Serum 0.63 mg/dL (0.70-1.30); EST Glomerular Filtration Rate 136 mL/min (>60); Est Glom Filt Rate - Afr Amer 164 mL/min (>60); Globulin 3.1 g/dL (2.2-4.2); Glucose 105 mg/dL (74-106); Magnesium 2.2 mg/dL (1.6-2.6); Potassium 4.5 mmol/L (3.5-5.1); Protein, Total 6.3 g/dL (6.4-8.2); Sodium Level 138 mmol/L (136-145); Thyroid Stim Hormone (TSH) 1.49 uIU/mL (0.358-3.74)
[2023-03-09] MEDS: Escitalopram Oxalate 20 MG Tablet 10 MG PO (10:25)
[2023-03-09] MEDS: buPROPion 75 MG Tablet PO (10:25)
[2023-03-09] MEDS: Losartan Potassium 50 MG Tablet PO (10:25)
[2023-03-09] MEDS: Famotidine 20 MG Tablet PO ×2 (10:25→21:17)
[2023-03-09] MEDS: Gabapentin 400 MG Capsule PO ×3 (10:25→17:39)
[2023-03-09] MEDS: guaiFENesin 1,200 MG Tablet 1200 MG PO ×2 (10:25→21:26)
[2023-03-09] MEDS: Furosemide 20 MG/2 ML VIAL IV (10:26)
[2023-03-09] MEDS: APIXABAN 5 MG TABLET PO ×2 (10:26→21:26)
[2023-03-09] MEDS: Carvedilol 6.25 MG Tablet 3.125 MG PO (10:47)
[2023-03-09] MEDS: Fluticasone 0.05% 1 SPRAY NASAL.SRY 2 SPRAY NASAL (10:48)
[2023-03-09] MEDS: Ferrous Sulfate 325 MG Tablet PO (10:48)
--- NOTE | 2023-03-09 13:04 | CASEMGMT ---
Registered Land Surveyor SW introduced self and role. SW spoke with patient regarding discharge planning. Pt reports he wishes to return home with HHC. A list of SNF providers including quality and resource use data and consistent with patient?s preferred geographic region, medical needs, and insurance network were provided from the [employer] Guide. SW to follow up with patient and needs re: HHC versus SNF. Anjelica Tobias MENTAL HEALTH SOCIAL WORKER, MANUFACTURING PROJECT MANAGER
[2023-03-09] MEDS: amLODIPine 10 MG Tablet PO (21:17)
[2023-03-10] VITALS (18 sets, daily range): BP systolic 119–143; BP diastolic 47–77; PULSE 42–86; RESP 14–18; TEMP 36.2–37.1; O2SAT 86–98; BMI 41.8
[2023-03-10] MEDS: Ipratropium/Albuterol Sulfate 3 ML AMPUL.NEB INHALATION ×4 (02:04→19:51)
[2023-03-10] MEDS: HYDROcodone Bitartrate/Apap 5/325 Tablet PO ×4 (02:47→20:37)
[2023-03-10] MEDS: BETHANECHOL CHLORIDE 25 MG TABLET PO ×3 (04:57→20:35)
[2023-03-10 05:23] LABS: Absolute Lymphocyte Count 1.25 X10^3/uL (0.83-4.51); Absolute Neutrophil Count 7.5 X10^3/uL (2.0-7.7); Basophil# 0.04 X10^3/uL; Basophil% 0.4 % (0-1); Eosinophil# 0.18 X10^3/uL; Eosinophils% 1.8 % (0-5); Hematocrit 29.2 % (40-54); Hemoglobin 9.3 g/dL (13.0-16.5); Lymphocyte # 1.25 X10^3/ul (0.83-4.51); Lymphocyte % 12.5 % (19-41); Mean Corp Hgb Conc 31.8 g/dL (32-36); Mean Corpuscular Hgb 31.4 pg (27.0-32.0); Mean Corpuscular Volume 98.6 fL (80-94); Mean Platelet Vol. 8.8 fl (6.2-12.0); Monocyte# 0.97 X10^3/uL; Monocyte% 9.7 % (0-10); NRBC Flagged by Analyzer 0 % (0-5); Neutrophil % 75.1 % (47-70); Platelet Count 201 K/mm3 (150-450); RBC Distribution Width CV 16.8 % (11.6-14.6); RBC Distribution Width SD 59.4 fl (35.1-43.9); Red Blood Count 2.96 M/mm3 (4.6-6.2)
[2023-03-10 06:07] LABS: ALB/GLOB Ratio 1.1 RATIO (0.9-2.4); AST(SGOT) 4 U/L (15-37); Alanine Aminotransfer ALT/SGPT 15 U/L (16-61); Albumin, Serum 3.1 g/dL (3.2-5.0); Alkaline Phosphatase 91 U/L (45-117); Anion Gap 7 (5-15); BUN 21 mg/dL (7-18); BUN/Creat Ratio 25.5 RATIO (10-20); Calcium,Total 9.6 mg/dL (8.5-10.1); Chloride 101 mmol/L (98-107); Creatinine, Serum 0.82 mg/dL (0.70-1.30); EST Glomerular Filtration Rate 100 mL/min (>60); Est Glom Filt Rate - Afr Amer 121 mL/min (>60); Estimated Creatinine Clearance 95.66 ml/min; Globulin 2.9 g/dL (2.2-4.2); Glucose 105 mg/dL (74-106); Magnesium 2.2 mg/dL (1.6-2.6); Potassium 4.5 mmol/L (3.5-5.1); Sodium Level 137 mmol/L (136-145)
[2023-03-10] MEDS: APIXABAN 5 MG TABLET PO ×2 (09:15→20:35)
[2023-03-10] MEDS: Fluticasone 0.05% 1 SPRAY NASAL.SRY 2 SPRAY NASAL (09:15)
[2023-03-10] MEDS: guaiFENesin 1,200 MG Tablet 1200 MG PO ×2 (09:15→20:35)
[2023-03-10] MEDS: Gabapentin 400 MG Capsule PO ×3 (09:20→17:11)
[2023-03-10] MEDS: Losartan Potassium 50 MG Tablet PO (11:51)
[2023-03-10] MEDS: 0.9% Saline Lock 10 ML Syringe IV (11:52)
[2023-03-10] MEDS: Escitalopram Oxalate 20 MG Tablet 10 MG PO (11:52)
[2023-03-10] MEDS: Famotidine 20 MG Tablet PO ×2 (11:53→20:35)
[2023-03-10] MEDS: Ferrous Sulfate 325 MG Tablet PO (11:53)
[2023-03-10] MEDS: buPROPion 75 MG Tablet PO (11:53)
--- NOTE | 2023-03-10 12:46 | PN.HOSP_ITS ---
Reason for Visit Reason for Visit: Diagnoses Obstructive sleep apnea (adult) (pediatric) (03/08/23) Essential (primary) hypertension (03/08/23) Unspecified atrial flutter (03/08/23) Pneumonia, unspecified organism (03/08/23) Dorsalgia, unspecified (03/08/23) Personal history of pulmonary embolism (03/08/23) Subjective Subjective Resting comfortably on BiPAP this morning, swelling difficulty with breathing but is slowly feeling better overall Objective Data Objective Data Vital Signs: Vital Signs Temp Pulse Resp BP Pulse Ox O2 Del Method O2 Flow Rate 98.0 F 42 L 14 123/65 H 98 Bi-pap 6 03/10/23 11:46 03/10/23 11:46 03/10/23 11:46 03/10/23 11:46 03/10/23 11:46 03/10/23 11:46 03/10/23 09:05 FiO2 45 03/10/23 11:46 Oxygen Flow Rate (L/min) 6 Oxygen Delivery Method Bi-pap Weight: 136 kg Body Mass Index (BMI) 41.8 Intake & Output: Intake and Output for Last 24 Hours 03/08/23 03/09/23 03/10/23 23:59 23:59 23:59 Intake Total 305 / 505 625 / 865 240 / 240 Output Total 1850 / 2150 500 / 500 Balance 305 / 105 -1225 / -1285 -260 / -260 Lab / Micro Data Result Diagrams: 03/10/23 04:25 03/10/23 04:25 Labs: Laboratory Results - last 24 hr 03/10/23 04:25: WBC 10.0, RBC 2.96 L, Hgb 9.3 L, Hct 29.2 L, MCV 98.6 H, MCH 31.4, MCHC 31.8 L, RDW Std Deviation 59.4 H, RDW Coeff of Justine 16.8 H, Plt Count 201, MPV 8.8, Immature Gran % (Auto) 0.500, Neut % (Auto) 75.1 H, Lymph % (Auto) 12.5 L, [place] % (Auto) 9.7, Eos % (Auto) 1.8, Baso % (Auto) 0.4, Absolute Neuts (auto) 7.5, Absolute Lymphs (auto) 1.25, Nucleated RBC % 0 03/10/23 04:25: Sodium 137, Potassium 4.5, Chloride 101, Carbon Dioxide 29.0, Anion Gap 7, BUN 21 H, Creatinine 0.82, Estim Creat Clear Calc 95.66, Est GFR (MDRD) Af Amer 121, Est GFR (MDRD) Non-Af 100, BUN/Creatinine Ratio 25.5 H, Glucose 105, Calcium 9.6, Magnesium 2.2, Total Bilirubin 0.80, AST 4 L, ALT 15 L , Alkaline Phosphatase 91, Total Protein 6.0 L, Albumin 3.1 L, Globulin 2.9, Albumin/Globulin Ratio 1.1 Micro: Microbiology 03/09/23 21:20 Urine, Clean Catch Legionella Antigen - Final 03/09/23 21:20 Urine, Clean Catch Streptococcus pneumoniae Antigen (M - Final 03/08/23 16:55 Mucosa - Nose Respiratory Panel (PCR) - Final Rhythm Strip Rhythm Strip: Atrial flutter Rate: 49 Ectopy: None Physical Exam Narrative General: Alert, oriented, no apparent distress HEENT: Atraumatic, normocephalic Eyes: Anicteric, normal conjunctiva, extraocular movements grossly intact Neck: Supple Respiratory: Some improvement in air movement Cardiovascular: Heart rate 40s to 50s and alternates between flutter and fib GI: Soft, nontender, nondistended Extremities: Trace to 1+ bilateral lower extremity pitting edema Musculoskeletal: Moving all extremities Neuro: No overt focal neurological deficits Skin: No rashes appreciated Psych: Cooperative Assessment & Plan Assessment/Plan (1) Pneumonia: (2) Hx of pulmonary embolus: (3) Atrial flutter: (4) Back pain: (5) Obstructive sleep apnea: (6) Hypertension: PLAN: Plan #Acute on chronic hypoxia secondary to community-acquired pneumonia -Increasing shortness of breath with decreased O2 sat into the 70s at home. He reports that he is not prescribed home oxygen but has been wearing it at night and sometimes during the day and he still had a tank/supplies from when he was sent home with it after pneumonia -D-dimer 1.2 in the ED so CTA ordered -CTA showed no PE but there was focal infiltrate/groundglass appearance of right upper lobe and right middle lobe as well as left perihilar region with minimal bilateral effusions right greater than left with some atelectasis -BNP was slightly elevated at 288.9, troponin normal. Last echo September 2022 showed mild concentric left ventricular hypertrophy with an EF of 60% and no regional wall motion abnormalities, diastolic function not commented on. -Does have swelling in bilateral lower extremities as well as crackles and some effusions on CT, will repeat echo as it seems there may be a component of fluid overload -Daily weights, I's and O's -DuoNebs and as needed albuterol -Sputum culture, will get COVID and flu, respiratory panel as well as enteric panel given his concurrent diarrhea -Urine antigens -Mucinex, I/S -Rocephin and azithromycin -03/09: COVID and respiratory panel negative. Continue antibiotics, echo with EF of 60% no evidence of diastolic dysfunction -03/10: Improving with BiPAP and antibiotics, will continue current management #FELA -Previously was compliant with his home CPAP per patient however it broke a catarino h ago, suspect that this is contributing to #1 -We will order nightly NIPPV while here and will need to follow-up with his provider to get new CPAP coordinated -03/10: Patient not sure if he is on CPAP or BiPAP at home, will need to follow- up to get this coordinated however and avoid future decompensations or readmissions #History of PE/DVT -Reports he had PEs when he had COVID and was on Eliquis for a period of time and was taken off of it due to presuming they were provoked -DVTs he endorsed were perioperatively and he had a IVC filter placed and supposed to have this removed at a period of time -He is unaware of any contraindication anticoagulation #Afib/aflutter w/ low HR -EKG showed heart rate of 49 with a flutter with variable block and is on telemetry there episodes that appear to be A-fib -CHADS2-VASc score indicates he is a candidate for anticoagulation which she is open to -We will start him on Eliquis -At periods will have heart rate dipped briefly down to the 30s, will decrease beta-royal but will continue Coreg given the A-fib/a flutter #DVT ppx: Waylon Fung MD Time spent in the patient's overall evaluation,decision-making process, review of diagnostic data, adjustment of management, discussion with other providers, nursing nursing and ancillary staff involved in patient's care documentation, 30 minutes Charges/Coding Visit Charges Inpatient E&M: 67733 Subs Hosp L2
[2023-03-10] MEDS: amLODIPine 10 MG Tablet PO (20:35)
[2023-03-11] VITALS (13 sets, daily range): BP systolic 100–137; BP diastolic 54–85; PULSE 44–56; RESP 14–19; TEMP 36.1–36.9; O2SAT 92–97; BMI 42.2
[2023-03-11] MEDS: HYDROcodone Bitartrate/Apap 5/325 Tablet PO ×5 (01:20→20:36)
[2023-03-11] MEDS: Ipratropium/Albuterol Sulfate 3 ML AMPUL.NEB INHALATION ×4 (01:59→19:03)
--- NOTE | 2023-03-11 02:15 | PCM.PN.BLA ---
Progress Note Nurse reported patient coughed up a significant amount of bright red blood. Patient is on Eliquis for A-fib. Eliquis was restarted on 03/08/2023. Reportedly previously patient was on eliquis for covid-associated PE; and IVC for provoked DVT. Will discontinue Eliquis for now. CBC already ordered in a.m.
[2023-03-11 04:33] LABS: Absolute Lymphocyte Count 1.27 X10^3/uL (0.83-4.51); Absolute Neutrophil Count 6.8 X10^3/uL (2.0-7.7); Basophil# 0.04 X10^3/uL; Basophil% 0.4 % (0-1); Eosinophils% 2.2 % (0-5); Hematocrit 29.6 % (40-54); Hemoglobin 9.5 g/dL (13.0-16.5); Lymphocyte # 1.27 X10^3/ul (0.83-4.51); Lymphocyte % 13.7 % (19-41); Mean Corp Hgb Conc 32.1 g/dL (32-36); Mean Corpuscular Hgb 31.7 pg (27.0-32.0); Mean Corpuscular Volume 98.7 fL (80-94); Mean Platelet Vol. 8.7 fl (6.2-12.0); Monocyte# 0.91 X10^3/uL; Monocyte% 9.8 % (0-10); NRBC Flagged by Analyzer 0 % (0-5); Neutrophil # 6.79 X10^3/uL (2.7-7.7); Neutrophil % 73.5 % (47-70); Platelet Count 214 K/mm3 (150-450); RBC Distribution Width CV 16.5 % (11.6-14.6); RBC Distribution Width SD 59.3 fl (35.1-43.9); White Blood Count 9.3 K/mm3 (4.4-11.0)
[2023-03-11] MEDS: BETHANECHOL CHLORIDE 25 MG TABLET PO ×3 (05:19→20:35)
[2023-03-11 05:20] LABS: AST(SGOT) 9 U/L (15-37); Alanine Aminotransfer ALT/SGPT 15 U/L (16-61); Albumin, Serum 3.2 g/dL (3.2-5.0); Alkaline Phosphatase 95 U/L (45-117); Anion Gap 7 (5-15); BUN 30 mg/dL (7-18); BUN/Creat Ratio 39.1 RATIO (10-20); Calcium,Total 9.8 mg/dL (8.5-10.1); Chloride 103 mmol/L (98-107); Creatinine, Serum 0.77 mg/dL (0.70-1.30); EST Glomerular Filtration Rate 108 mL/min (>60); Est Glom Filt Rate - Afr Amer 131 mL/min (>60); Estimated Creatinine Clearance 101.87 ml/min; Globulin 3.1 g/dL (2.2-4.2); Glucose 109 mg/dL (74-106); Magnesium 2.1 mg/dL (1.6-2.6); Potassium 4.4 mmol/L (3.5-5.1); Protein, Total 6.3 g/dL (6.4-8.2); Sodium Level 137 mmol/L (136-145)
[2023-03-11] MEDS: 0.9% Saline Lock 10 ML Syringe IV ×2 (05:20→09:37)
--- NOTE | 2023-03-11 07:42 | PCM.PN.HOSP ---
Reason for Visit Reason for Visit: Diagnoses Obstructive sleep apnea (adult) (pediatric) (03/08/23) Essential (primary) hypertension (03/08/23) Unspecified atrial flutter (03/08/23) Pneumonia, unspecified organism (03/08/23) Dorsalgia, unspecified (03/08/23) Personal history of pulmonary embolism (03/08/23) Subjective Subjective Follow-up for acute on chronic hypoxic respiratory failure. Objective Data Objective Data Vital Signs: Vital Signs Temp Pulse Resp BP Pulse Ox O2 Del Method O2 Flow Rate 97 F L 49 L 18 130/60 H 96 Bi-pap 5 03/11/23 02:40 03/11/23 04:08 03/11/23 04:08 03/11/23 02:40 03/11/23 04:08 03/11/23 02:40 03/11/23 01:59 FiO2 45 03/11/23 04:08 Oxygen Flow Rate (L/min) 5 Oxygen Delivery Method Bi-pap Weight: 302 lb 14.642 oz Body Mass Index (BMI) 42.2 Intake & Output: Intake and Output for Last 24 Hours 03/09/23 03/10/23 03/11/23 23:59 23:59 23:59 Intake Total 625 / 865 1345 / 1765 420 / 420 Output Total 1850 / 2150 825 / 1025 1400 / 1400 Balance -1225 / -1285 520 / 740 -980 / -980 Lab / Micro Data Result Diagrams: 03/11/23 04:00 03/11/23 04:00 Labs: Laboratory Results - last 24 hr 03/11/23 04:00: WBC 9.3, RBC 3.00 L, Hgb 9.5 L, Hct 29.6 L, MCV 98.7 H, MCH 31.7, MCHC 32.1, RDW Std Deviation 59.3 H, RDW Coeff of Justine 16.5 H, Plt Count 214, MPV 8.7, Immature Gran % (Auto) 0.400, Neut % (Auto) 73.5 H, Lymph % (Auto) 13.7 L, [place] % (Auto) 9.8, Eos % (Auto) 2.2, Baso % (Auto) 0.4, Absolute Neuts (auto) 6.8, Absolute Lymphs (auto) 1.27, Nucleated RBC % 0 03/11/23 04:00: Sodium 137, Potassium 4.4, Chloride 103, Carbon Dioxide 27.0, Anion Gap 7, BUN 30 H, Creatinine 0.77, Estim Creat Clear Calc 101.87, Est GFR (MDRD) Af Amer 131, Est GFR (MDRD) Non-Af 108, BUN/Creatinine Ratio 39.1 H, Glucose 109 H, Calcium 9.8, Magnesium 2.1, Total Bilirubin 0.50, AST 9 L, ALT 15 L, Alkaline Phosphatase 95, Total Protein 6.3 L, Albumin 3.2, Globulin 3.1, Albumin/Globulin Ratio 1.0 Micro: Microbiology 03/09/23 21:20 Urine, Clean Catch Legionella Antigen - Final 03/09/23 21:20 Urine, Clean Catch Streptococcus pneumoniae Antigen (M - Final 03/08/23 16:55 Mucosa - Nose Respiratory Panel (PCR) - Final Rhythm Strip Rhythm Strip: Atrial flutter Rate: 49 Ectopy: None Physical Exam Narrative Patient is still mild short of breath at rest. On BiPAP at night. Patient stated he coughed out blood yesterday night. Mild occasional cough. Physical exam General: Alert, Oriented x3, Cooperative, morbid obesity, BMI 42.2 kg/m? HEENT: Atraumatic, PERRLA, EOMI, Normocephalic Oral: No Gingival or Mucosal Lesions/ Ulcerations Neck: Supple, No JVD, Negative Carotid Bruits Lungs: Air entry diminished in bilateral lung bases. Dyspnea at rest. Bilateral coarse crepitations and rhonchi, hypoxia. Cardiovascular: Sinus bradycardia, Normal S1, Normal S2, systolic murmur LLSB Abdomen: Bowel Sounds Present, Soft, Non Tender, Non-Distended : No renal angle tenderness. No suprapubic tenderness. Extremities: Bilateral edema, Capillary Refill Less than 3 Seconds Skin:Small superficial ulcer. Left knee bruise after fall. Chronic venous hypertensive changes with grayish pigmentation, Musculoskeletal: No Tenderness to Palpation of Joints or Extremities. Bilateral knee arthritis. Neurological: Cranial nerves II-XII grossly intact, DTR 2+/4 and Symmetrical, Neuro grossly intact Psych/Mental Status: Flat affect. Assessment & Plan Assessment/Plan (1) Pneumonia: (2) Hx of pulmonary embolus: (3) Atrial flutter: (4) Back pain: (5) Obstructive sleep apnea: (6) Hypertension: PLAN: Plan Patient was admitted with worsening shortness of breath with hypoxia pulse ox 70s at home. #Acute on chronic hypoxia secondary to community-acquired pneumonia, OSAs: echo with EF of 60% no evidence of diastolic dysfunction 03/11, very slow improvement. Continue BiPAP alternating with high flow oxygen. Antibiotics. Incentive spirometry and Pep. Patient on IV ceftriaxone and azithromycin. Mucinex. COVID and respiratory panel negative. CTA showed no PE but there was focal infiltrate/groundglass appearance of right upper lobe and right middle lobe as well as left perihilar region with minimal bilateral effusions right greater than left with some atelectasis #FELA -Previously was compliant with his home CPAP per patient however it broke a month ago, suspect that this is contributing to #1 -03/11: Patient not sure if he is on CPAP or BiPAP at home, will need coordination with pulmonary clinic for PFT and sleep study. #History of PE/DVT -Reports he had PEs when he had COVID and was on Eliquis for a period of time and was taken off of it due to presuming they were provoked -History of perioperative DVT and he had a IVC filter placed and supposed to have this removed at a period of time -He is unaware of any contraindication anticoagulation #Afib/aflutter w/ low HR -EKG showed heart rate of 49 with a flutter with variable block and is on telemetry there episodes that appear to be A-fib -CHADS2-VASc score indicates he is a candidate for anticoagulation which she is open to Started on Eliquis. Heart rate sometimes 40s but usually in 60s #DVT ppx: Eliquis Charges/Coding Visit Charges Inpatient E&M: 03365 Subs Hosp L2
[2023-03-11] MEDS: Famotidine 20 MG Tablet PO ×2 (08:46→20:36)
[2023-03-11] MEDS: buPROPion 75 MG Tablet PO (08:46)
[2023-03-11] MEDS: Losartan Potassium 50 MG Tablet PO (08:46)
[2023-03-11] MEDS: Gabapentin 400 MG Capsule PO ×3 (08:46→16:14)
[2023-03-11] MEDS: guaiFENesin 1,200 MG Tablet 1200 MG PO ×2 (08:46→20:36)
[2023-03-11] MEDS: Fluticasone 0.05% 1 SPRAY NASAL.SRY 2 SPRAY NASAL (08:47)
[2023-03-11] MEDS: Escitalopram Oxalate 20 MG Tablet 10 MG PO (08:48)
--- NOTE | 2023-03-11 09:06 | CASEMGMT ---
SW checked in with patient to see if he is still wanting home health or if he feels he will need jail. Patient wants to return home, but said he will need to talk with his home caregiver. Patient also thinks he may be out of jail days. He was at [facility]. Patient was okay with SW calling [facility] to check on days. Patient was in [facility] TCU from 12-14 to 01-11. He was then at [facility] 01-18 to 02-07. It appears patient still has jail days, but if a referral is made the jail would check on this. Olga Carrion [employer]ED[employer] MARTHA
--- NOTE | 2023-03-11 11:34 | WOUNDNOTE ---
wound photo: left knee
--- NOTE | 2023-03-11 11:35 | WOUNDNOTE ---
wound photo: left lateral lower leg/ankle
--- NOTE | 2023-03-11 12:02 | CHAPLAIN ---
Type of Pastoral Visit _x__ Initial Visit ___ Follow-up Visit ___ On-call Visit ___ General Patient Visit ___ Spiritual Assessment ___ Family Conference ___ Bereavement ___ Rapid Response ___ Code Blue ___ Other (describe below) Pastoral Care Referral From _x__ Patient ___ Family ___ Nurse ___ Physician ___ [place] Drag Operator ___ Test Preparer ___ Other (describe below) Sacrament/Intervention _x__ Active listening ___ Anointing ___ Cheondoism ___ Bereavement ___ Communion ___ Cindi exploration ___ ___ Life review _x__ Prayer ___ Reconciliation ___ Sacrament of Sick _x__ Supportive presence ___ Wedding ___ Other (describe below) Pastoral Comments patient has been seen before in previous admission; pt reviews his recent health status and needs; pt acknowledges discouragement for health problems and transfers to EC and TCU and hospital; pt given time to talk and express his feelings; looked at the positives that he does have going for him; pt welcomes prayer and future visits for support
[2023-03-11] MEDS: Ferrous Sulfate 325 MG Tablet PO (12:13)
[2023-03-11] MEDS: amLODIPine 10 MG Tablet PO (20:36)
[2023-03-11] MEDS: Acetaminophen 325 MG Tablet 650 MG PO (20:37)
[2023-03-12] VITALS (18 sets, daily range): BP systolic 131–156; BP diastolic 69–82; PULSE 52–92; RESP 14–19; TEMP 35.6–37.1; O2SAT 78–97; BMI 42.0
[2023-03-12] MEDS: HYDROcodone Bitartrate/Apap 5/325 Tablet PO ×5 (00:42→20:55)
[2023-03-12] MEDS: Ipratropium/Albuterol Sulfate 3 ML AMPUL.NEB INHALATION ×4 (00:59→19:28)
[2023-03-12] MEDS: BETHANECHOL CHLORIDE 25 MG TABLET PO ×3 (05:30→20:55)
[2023-03-12 06:56] LABS: Absolute Lymphocyte Count 1.26 X10^3/uL (0.83-4.51); Absolute Neutrophil Count 5.2 X10^3/uL (2.0-7.7); Basophil# 0.04 X10^3/uL; Basophil% 0.5 % (0-1); Eosinophils% 2.6 % (0-5); Hematocrit 31.1 % (40-54); Hemoglobin 9.9 g/dL (13.0-16.5); Lymphocyte # 1.26 X10^3/ul (0.83-4.51); Lymphocyte % 16.2 % (19-41); Mean Corp Hgb Conc 31.8 g/dL (32-36); Mean Corpuscular Hgb 31.5 pg (27.0-32.0); Mean Platelet Vol. 8.3 fl (6.2-12.0); Monocyte# 1.04 X10^3/uL; Monocyte% 13.3 % (0-10); NRBC Flagged by Analyzer 0 % (0-5); Neutrophil # 5.23 X10^3/uL (2.7-7.7); Platelet Count 226 K/mm3 (150-450); RBC Distribution Width CV 16.5 % (11.6-14.6); RBC Distribution Width SD 59.5 fl (35.1-43.9); Red Blood Count 3.14 M/mm3 (4.6-6.2); White Blood Count 7.8 K/mm3 (4.4-11.0)
[2023-03-12 07:37] LABS: ALB/GLOB Ratio 0.9 RATIO (0.9-2.4); AST(SGOT) 17 U/L (15-37); Alanine Aminotransfer ALT/SGPT 14 U/L (16-61); Albumin, Serum 3.2 g/dL (3.2-5.0); Alkaline Phosphatase 108 U/L (45-117); Anion Gap 7 (5-15); BUN 18 mg/dL (7-18); BUN/Creat Ratio 29.2 RATIO (10-20); Calcium,Total 10.1 mg/dL (8.5-10.1); Chloride 102 mmol/L (98-107); Creatinine, Serum 0.62 mg/dL (0.70-1.30); EST Glomerular Filtration Rate 139 mL/min (>60); Est Glom Filt Rate - Afr Amer 168 mL/min (>60); Estimated Creatinine Clearance 126.51 ml/min; Globulin 3.6 g/dL (2.2-4.2); Glucose 107 mg/dL (74-106); Magnesium 1.9 mg/dL (1.6-2.6); Potassium 4.2 mmol/L (3.5-5.1); Protein, Total 6.8 g/dL (6.4-8.2); Sodium Level 138 mmol/L (136-145)
--- NOTE | 2023-03-12 07:39 | PN.HOSP_ITS ---
Reason for Visit Reason for Visit: Diagnoses Obstructive sleep apnea (adult) (pediatric) (03/08/23) Essential (primary) hypertension (03/08/23) Unspecified atrial flutter (03/08/23) Pneumonia, unspecified organism (03/08/23) Dorsalgia, unspecified (03/08/23) Personal history of pulmonary embolism (03/08/23) Subjective Subjective Follow-up for acute on chronic hypoxic respiratory failure. Objective Data Objective Data Vital Signs: Vital Signs Temp Pulse Resp BP Pulse Ox O2 Del Method O2 Flow Rate 97.6 F L 62 18 156/75 H 95 Nasal Cannula 4 03/12/23 05:27 03/12/23 06:44 03/12/23 06:44 03/12/23 05:27 03/12/23 06:44 03/12/23 06:44 03/12/23 06:44 FiO2 40 03/12/23 03:30 Oxygen Flow Rate (L/min) 4 Oxygen Delivery Method Nasal Cannula Weight: 301 lb 2.423 oz Body Mass Index (BMI) 42.0 Intake & Output: Intake and Output for Last 24 Hours 03/10/23 03/11/23 03/12/23 23:59 23:59 23:59 Intake Total 1345 / 1765 1485 / 1485 240 / 240 Output Total 825 / 1025 3840 / 3840 1150 / 1150 Balance 520 / 740 -2355 / -2355 -910 / -910 Lab / Micro Data Result Diagrams: 03/12/23 06:45 03/12/23 06:45 Labs: Laboratory Results - last 24 hr 03/12/23 06:45: WBC 7.8, RBC 3.14 L, Hgb 9.9 L, Hct 31.1 L, MCV 99.0 H, MCH 31.5, MCHC 31.8 L, RDW Std Deviation 59.5 H, RDW Coeff of Justine 16.5 H, Plt Count 226, MPV 8.3, Immature Gran % (Auto) 0.400, Neut % (Auto) 67.0, Lymph % (Auto) 16.2 L, [place] % (Auto) 13.3 H, Eos % (Auto) 2.6, Baso % (Auto) 0.5, Absolute Neuts (auto) 5.2, Absolute Lymphs (auto) 1.26, Nucleated RBC % 0 03/12/23 06:45: Sodium 138, Potassium 4.2, Chloride 102, Carbon Dioxide 29.0, Anion Gap 7, BUN 18, Creatinine 0.62 L, Estim Creat Clear Calc 126.51, Est GFR (MDRD) Af Amer 168, Est GFR (MDRD) Non-Af 139, BUN/Creatinine Ratio 29.2 H, Glucose 107 H, Calcium 10.1, Magnesium 1.9, Total Bilirubin 0.60, AST 17, ALT 14 L, Alkaline Phosphatase 108, Total Protein 6.8, Albumin 3.2, Globulin 3.6, Albumin/Globulin Ratio 0.9 Micro: Microbiology 03/09/23 21:20 Urine, Clean Catch Legionella Antigen - Final 03/09/23 21:20 Urine, Clean Catch Streptococcus pneumoniae Antigen (M - Final 03/08/23 16:55 Mucosa - Nose Respiratory Panel (PCR) - Final Rhythm Strip Rhythm Strip: Atrial flutter Rate: 49 Ectopy: None Physical Exam Narrative Patient is still mild short of breath at rest. On BiPAP at night. On 4 L of oxygen. Patient wants to go home but needs BiPAP at night. He has old CPAP more than 10 years old and needs sleep study for new CPAP/BiPAP.. Physical exam General: Alert, Oriented x3, Cooperative, morbid obesity, BMI 42.2 kg/m? HEENT: Atraumatic, PERRLA, EOMI, Normocephalic Oral: Oral mucosa moist. No Gingival or Mucosal Lesions/ Ulcerations Neck: Supple, No JVD, Negative Carotid Bruits Lungs: Air entry diminished in bilateral lung bases. Mild expiratory rhonchi. Cardiovascular: Sinus bradycardia, Normal S1, Normal S2, systolic murmur LLSB Abdomen: Bowel Sounds Present, Soft, Non Tender, Non-Distended : No renal angle tenderness. No suprapubic tenderness. Extremities: Bilateral edema, Capillary Refill Less than 3 Seconds Skin:Small superficial ulcer. Left knee bruise after fall. Chronic venous hyp ertensive changes with grayish pigmentation, Musculoskeletal: No Tenderness to Palpation of Joints or Extremities. Bilateral knee arthritis. Neurological: Cranial nerves II-XII grossly intact, DTR 2+/4 and Symmetrical, Neuro grossly intact Psych/Mental Status: Flat affect. Assessment & Plan Assessment/Plan (1) Pneumonia: (2) Hx of pulmonary embolus: (3) Atrial flutter: (4) Back pain: (5) Obstructive sleep apnea: (6) Hypertension: PLAN: Plan Patient was admitted with worsening shortness of breath with hypoxia pulse ox 70s at home. #Acute on chronic hypoxia secondary to community-acquired pneumonia, OSAs: echo with EF of 60% no evidence of diastolic dysfunction 03/11, very slow improvement. Continue BiPAP alternating with high flow oxygen. Antibiotics. Incentive spirometry and Pep. Patient on IV ceftriaxone and azithromycin. Mucinex. COVID and respiratory panel negative. CTA showed no PE but there was focal infiltrate/groundglass appearance of right upper lobe and right middle lobe as well as left perihilar region with minimal bilateral effusions right greater than left with some atelectasis 03/12: Patient on 4 L of oxygen through nasal cannula. On IV ceftriaxone and azithromycin. Discussed with the case management coordinator regarding transfer to SNF although patient wants to go home. He is still one-person assist and cannot walk more than 20 feet. #FELA -Previously was compliant with his home CPAP per patient however it broke a month ago, suspect that this is contributing to #1 -03/11: Patient not sure if he is on CPAP or BiPAP at home, will need coordination with pulmonary clinic for PFT and sleep study. #History of PE/DVT -Reports he had PEs when he had COVID and was on Eliquis for a period of time and was taken off of it due to presuming they were provoked -History of perioperative DVT and he had a IVC filter placed and supposed to have this removed at a period of time -He is unaware of any contraindication anticoagulation #Afib/aflutter w/ low HR -EKG showed heart rate of 49 with a flutter with variable block and is on telemetry there episodes that appear to be A-fib -CHADS2-VASc score indicates he is a candidate for anticoagulation which she is open to Started on Eliquis. Heart rate sometimes 40s but usually in 60s 03/12: Patient heart rate drops down to 40s during nighttime while sleeping. No acute chest pain or tightness. #DVT ppx: Eliquis Charges/Coding Visit Charges Inpatient E&M: 05036 Subs Hosp L2
[2023-03-12] MEDS: guaiFENesin 1,200 MG Tablet 1200 MG PO ×2 (08:25→20:55)
[2023-03-12] MEDS: Gabapentin 400 MG Capsule PO ×3 (08:25→17:16)
[2023-03-12] MEDS: Escitalopram Oxalate 20 MG Tablet 10 MG PO (08:25)
[2023-03-12] MEDS: Carvedilol 12.5 MG Tablet PO ×2 (08:25→20:55)
[2023-03-12] MEDS: Famotidine 20 MG Tablet PO ×2 (08:25→20:55)
[2023-03-12] MEDS: Fluticasone 0.05% 1 SPRAY NASAL.SRY 2 SPRAY NASAL (08:25)
[2023-03-12] MEDS: Losartan Potassium 50 MG Tablet PO (08:26)
[2023-03-12] MEDS: buPROPion 75 MG Tablet PO (08:26)
[2023-03-12] MEDS: 0.9% Saline Lock 10 ML Syringe IV (09:36)
[2023-03-12] MEDS: APIXABAN 5 MG TABLET PO ×2 (09:40→20:55)
--- NOTE | 2023-03-12 10:39 | CASEMGMT ---
Physician would like to discharge patient, but he will not have a cpap machine. Patient is also not doing overly well with therapy. This EBONIE and EBONIE Arriaza went to patient's room to discuss d/c plan. Patient does not want to go to a usp. He has been in and out of nursing homes since September. EBONIE explained to patient that he will not be able to go home from [facility] with a new cpap machine. SW explained he will need a new sleep study in order to get a new machine. Patient said he made some phone calls and he can get a loaner and the old [facility] has his settings. EBONIE told patient SW will have the RN CM come in and talk with him about this. EBONIE notified RN CM and she will talk with patient. Olga THOMAS
--- NOTE | 2023-03-12 11:00 | CASEMGMT ---
TONY JOVEL recieved call from Maryse at [facility] regarding patient's cpap. Per Maryse patient's cpap is broken and his cpap is over 10 years old and patient would need new sleep study. TONY JOVEL updated Maryse that patient will need to have sleep study done as an outpatient with PCP follow-up. TONY JOVEL updated by EBONIE that patient has questions regarding cpap. TONY JOVEL in to patient's room to discuss discharge needs. TONY JOVEL explained to patient that his cpap is over 10 years old and patient would need a new sleep study as outpatient. Patient states he talked to Dr. Hwang last week regarding new cpap. Patient called Dr. Hwang's nurse to clarify status of new CPAP. Per Dr. Hwang's nurse, Dr Hwang ordering new sleep study as outpatient and is in the process of setting this up. Patient voiced understanding but voiced frustrations about it taking so long. TONY JOVEL discussed patient's oxygen needs and progress with therapy and recommendations for SNF at discharge. Patient is hesitant to go to SNF again. Patient states Lidia can help him at home. TONY JOVEL voiced concerns about patient's safety at home and risk for readmission. Patient is agreeable to work with therapy today and complete oxygen testing to see what his needs will be at discharge. Patient to discuss with Lidia concerns for discharge home. CM will continue to follow this patient and plan for a safe discharge. Disposition Plan: [facility] vs SNF pending progress with therapy and oxygen demands.
[2023-03-12] MEDS: Ferrous Sulfate 325 MG Tablet PO (11:44)
[2023-03-12] MEDS: amLODIPine 10 MG Tablet PO (20:55)
[2023-03-13] VITALS (11 sets, daily range): BP systolic 124–137; BP diastolic 62–74; PULSE 42–65; RESP 14–21; TEMP 36.1–36.7; O2SAT 84–97; BMI 42.0
[2023-03-13] MEDS: Ipratropium/Albuterol Sulfate 3 ML AMPUL.NEB INHALATION ×3 (01:58→13:33)
[2023-03-13] MEDS: BETHANECHOL CHLORIDE 25 MG TABLET PO ×2 (04:12→12:54)
[2023-03-13] MEDS: HYDROcodone Bitartrate/Apap 5/325 Tablet PO ×2 (04:12→09:50)
[2023-03-13 05:23] LABS: AST(SGOT) 15 U/L (15-37); Alanine Aminotransfer ALT/SGPT 19 U/L (16-61); Albumin, Serum 3.3 g/dL (3.2-5.0); Alkaline Phosphatase 108 U/L (45-117); Anion Gap 6 (5-15); BUN 18 mg/dL (7-18); BUN/Creat Ratio 25.7 RATIO (10-20); Calcium,Total 10.3 mg/dL (8.5-10.1); Chloride 103 mmol/L (98-107); EST Glomerular Filtration Rate 120 mL/min (>60); Est Glom Filt Rate - Afr Amer 145 mL/min (>60); Estimated Creatinine Clearance 112.05 ml/min; Globulin 3.3 g/dL (2.2-4.2); Glucose 113 mg/dL (74-106); Magnesium 1.9 mg/dL (1.6-2.6); Potassium 4.2 mmol/L (3.5-5.1); Protein, Total 6.6 g/dL (6.4-8.2); Sodium Level 139 mmol/L (136-145)
--- NOTE | 2023-03-13 09:07 | DCINST_ITS ---
Discharge Instructions Diet Discharge Diet: No restrictions Activity Discharge Activity: Return to Normal Activity Weight Bearing Status: Weight bearing as tolerated Dressing / Incision Call your doctor if you observe: Fever of 101 or Higher, Coldness, Increased Pain, Numbness or Tingling, Change in Color, Inability to urinate, Inability to have a bowel movement, Shortness of breath, Dizziness, Fainting spells, Swelling in the ankles, Chest pain, Prolonged hiccupping, Increased palpitations (irregular heartbeat) and Calf discomfort Follow Up Care When: IN 2 WEEKS Test Results: Test results from this visit will be discussed in further detail at your follow- up appointment, if applicable. Discharge Plan Admission Admit Date/Time: 03/08/23 14:03 Attending Provider: Keith Pink Primary Care Provider: Arleen Hwang Consulting Providers: Apryl Fung Instructions Additional Instructions / Restrictions: Follow-up in wound clinic every week. Discharge Orders/Prescriptions Prescriptions: New sennosides-docusate sodium [Stool Softener-Stimulant Laxat] 8.6-50 mg Tablet 2 tab PO BID Qty: 0 0RF Rx Instructions: Hold if more than 1 bowel movement per day Mucus Relief ER 1,200 mg Tablet Extended Release 12hr 1,200 mg PO BID 7 Days Qty: 14 0RF Eliquis 5 mg Tablet 5 mg PO BID 30 Days Qty: 60 2RF cefdinir 300 mg capsule 300 mg PO BID 2 Days Qty: 4 0RF Continued amlodipine 10 MG tablet 10 mg PO QHS escitalopram oxalate 20 MG tablet 10 mg PO DAILY bupropion HCl 75 mg tablet 75 mg PO DAILY Label Comments: START WITH TAKING 1 TABLET DAILY AND INCREASE TO 1 TABLET TWICE DAILY IF TOLERATED bethanechol chloride 25 mg Tablet 25 mg PO TID 30 Days Qty: 90 0RF cyclobenzaprine 5 mg Tablet 5 mg PO TID PRN PRN (Reason: Muscle Spasm) 30 Days Qty: 90 0RF cholestyramine (with sugar) 4 gram Powder In Packet 4 g PO DAILY@1000 30 Days Qty: 30 0RF albuterol sulfate 90 mcg/actuation HFA aerosol inhaler 2 puff INHALATION Q6H Label Comments: INHALE 2 PUFFS BY MOUTH EVERY 6 HOURS NEEDED FOR WHEEZING OR SHORTNESS OF BREATH acetaminophen 325 mg Tablet 650 mg PO Q6H PRN PRN (Reason: Pain 1-10 Or Fever>100.7) Qty: 0 0RF hydrocodone-acetaminophen 5-325 mg Tablet 1 tab PO Q4H PRN PRN (Reason: Moderate to severe pain 4-10) 2 Days Qty: 8 0RF gabapentin 600 mg tablet 600 mg PO TIDCM polyethylene glycol 3350 17 gram powder in packet 17 g PO DAILY famotidine 20 mg tablet 20 mg PO BID ferrous sulfate [FeroSul] 325 mg (65 mg iron) tablet 325 mg PO DAILY@1200 lidocaine 5 % adhesive patch,medicated 1 patch topical 0800 fluticasone propionate 50 mcg/actuation spray,suspension 2 spray NASAL DAILY Healthy Eyes 300 mcg-200 mg-27 mg-2 mg tablet 1 cap PO DAILYCM Mag 64 64 mg tablet,delayed release (DR/EC) 128 mg PO DAILY Changed carvedilol 25 mg tablet 12.5 mg PO BID 30 Days Qty: 0 0RF Label Comments: TAKE 1 TABLET BY MOUTH TWICE A DAY WITH MEALS Rx Instructions: Hold for heart less than 60 or systolic blood pressure less than 100 mmHg. losartan 100 mg tablet 50 mg PO DAILY 30 Days Qty: 0 0RF Label Comments: TAKE 1 TABLET BY MOUTH EVERY DAY Discontinued gabapentin 600 mg tablet 600 mg PO TID docusate sodium 100 mg capsule 100 mg PO BID Referrals / Follow Up: Mckinley Marmolejo MD [Med Staff - Active Staff] - Within 1 Month (FOR HF) Arleen Hwang MD [Primary Care Provider] - Within 2 Weeks Dallin Ngo DO [Med Staff - Active Staff] - Within 1 Week (For sleep study/Bipap machine, PFT) Terence Fofana MD [Med Staff - Active Staff] - Within 1 Week Disposition Disposition (needs filled in before D/C Order can be placed): Home Health Service
[2023-03-13] MEDS: Gabapentin 400 MG Capsule PO ×2 (09:50→12:52)
[2023-03-13] MEDS: Furosemide 20 MG/2 ML VIAL IV ×2 (09:51→10:08)
[2023-03-13] MEDS: Carvedilol 12.5 MG Tablet PO (09:53)
[2023-03-13] MEDS: Losartan Potassium 50 MG Tablet PO (09:53)
[2023-03-13] MEDS: APIXABAN 5 MG TABLET PO (09:54)
[2023-03-13] MEDS: Fluticasone 0.05% 1 SPRAY NASAL.SRY 2 SPRAY NASAL (09:54)
[2023-03-13] MEDS: Escitalopram Oxalate 20 MG Tablet 10 MG PO (09:55)
[2023-03-13] MEDS: guaiFENesin 1,200 MG Tablet 1200 MG PO (09:59)
[2023-03-13] MEDS: Famotidine 20 MG Tablet PO (10:00)
[2023-03-13] MEDS: buPROPion 75 MG Tablet PO (10:00)
[2023-03-13] MEDS: 0.9% Saline Lock 10 ML Syringe IV ×2 (10:10→12:55)
[2023-03-13] MEDS: Ferrous Sulfate 325 MG Tablet PO (12:52)
--- NOTE | 2023-03-13 14:10 | PCM.DC.SUM ---
Providers Date of Admission: 03/08/23 Date of Discharge: 03/13/23 Primary Care Physician: Dr. 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/computer systems security analyst Routine Comment: Reason For Visit: CAP Diagnosis Discharge Diagnosis (1) Pneumonia: Status: Acute Code(s): J18.9 - Pneumonia, unspecified organism (2) Hx of pulmonary embolus: Status: Acute Code(s): Z86.711 - Personal history of pulmonary embolism (3) Atrial flutter: Status: Acute Code(s): I48.92 - Unspecified atrial flutter (4) Back pain: Status: Acute Code(s): M54.9 - Dorsalgia, unspecified (5) Obstructive sleep apnea: Status: Acute Code(s): G47.33 - Obstructive sleep apnea (adult) (pediatric) (6) Hypertension: Status: Chronic Code(s): I10 - Essential (primary) hypertension Plan Patient was admitted with worsening shortness of breath with hypoxia pulse ox 70s at home. #Acute hypoxic respiratory failure secondary to community-acquired pneumonia, OSAs: echo with EF of 60% no evidence of diastolic dysfunction 03/11, very slow improvement. Continue BiPAP alternating with high flow oxygen. Antibiotics. Incentive spirometry and Pep. Patient on IV ceftriaxone and azithromycin. Mucinex. COVID and respiratory panel negative. CTA showed no PE but there was focal infiltrate/groundglass appearance of right upper lobe and right middle lobe as well as left perihilar region with minimal bilateral effusions right greater than left with some atelectasis 03/12: Patient on 4 L of oxygen through nasal cannula. On IV ceftriaxone and azithromycin. Discussed with the piano case maker regarding transfer to SNF although patient wants to go home. He is still one-person assist and cannot walk more than 20 feet. 03/13: Home oxygen qualification was done. Patient requires 4 L of oxygen on exertion. Patient is ambulatory in home and in the community and requires home oxygen with portability for history of obstructive sleep apnea and pneumonia. Patient completed 6 days of IV antibiotics. 2 more days of cefdinir prescription sent to patient pharmacy along with Mucinex. Continue incentive spirometry and Pep for 1 more week. #FELA -Previously was compliant with his home CPAP per patient however it broke a month ago, suspect that this is contributing to #1 -03/11: Patient not sure if he is on CPAP or BiPAP at home, will need coordination with pulmonary clinic for PFT and sleep study. 03/16: Follow-up pulmonary clinic in 1 week for sleep study. #History of PE/DVT -Reports he had PEs when he had COVID and was on Eliquis for a period of time and was taken off of it due to presuming they were provoked -History of perioperative DVT and he had a IVC filter placed and supposed to have this removed at a period of time -He is unaware of any contraindication anticoagulation #Afib/aflutter w/ low HR. intermittent bradycardia. -EKG showed heart rate of 49 with a flutter with variable block and is on telemetry there episodes that appear to be A-fib -CHADS2-VASc score indicates he is a candidate for anticoagulation which she is open to Started on Eliquis. Heart rate sometimes 40s but usually in 60s 03/12: Patient heart rate drops down to 40s during nighttime while sleeping. No acute chest pain or tightness. 03/13: Prescription for Eliquis given. Carvedilol dose decreased to 12.5 mg twice daily and losartan 50 mg daily as per hemodynamic parameters with holding parameters. Follow-up in pulmonary clinic in 1 month. #DVT ppx: Eliquis Discharge medication reconciliation done. Discharge follow-up instructions completed. Discharge process discussed with the patient and all questions were answered to patient's satisfaction. Total time spent, exact 35 minutes on discharge meds reconciliation, examination, coordination of care with nurses and ancillary staff, review of imaging and blood test and discussion with the patient on follow-up instructions. Medications at Discharge Home Medications amlodipine 10 mg tablet 10 mg PO QHS Blood pressure 10/14/19 escitalopram oxalate 20 mg tablet 10 mg PO DAILY Check with primary doctor 10/14/19 bupropion HCl 75 mg tablet 75 mg PO DAILY Depression 09/18/22 bethanechol chloride 25 mg tablet 25 mg PO TID 30 days #90 tabs 01/07/23 cholestyramine (with sugar) 4 gram powder for susp in a packet 4 g PO DAILY@1000 30 days #30 ea 01/07/23 cyclobenzaprine 5 mg tablet 5 mg PO TID PRN PRN Muscle Spasm 30 days #90 tabs 01/07/23 albuterol sulfate 90 mcg/actuation aerosol inhaler 2 puff inhalation Q6H sob 01/14/23 acetaminophen 325 mg tablet 650 mg PO Q6H PRN PRN Pain 1-10 Or Fever>100.7 #0 tabs 01/17/23 hydrocodone-acetaminophen 5-325mg 5mg-325mg 1 tab PO Q4H PRN PRN Moderate to severe pain 4-10 2 days #8 tabs 01/17/23 famotidine 20 mg tablet 20 mg PO BID Check with primary doctor 03/08/23 ferrous sulfate 325 mg (65 mg iron) tablet (FeroSul) 325 mg PO DAILY@1200 Check with primary doctor 03/08/23 fluticasone propionate 50 mcg/actuation nasal spray,suspension 2 spray NASAL DAILY Check with primary doctor 03/08/23 gabapentin 600 mg tablet 600 mg PO TIDCM Check with primary doctor 03/08/23 lidocaine 5 % topical patch 1 patch topical 0800 Check with primary doctor 03/08/23 magnesium chloride 64 mg (magnesium chloride) tablet,delayed release (Mag 64) 128 mg PO DAILY Check with primary doctor 03/08/23 polyethylene glycol 3350 17 gram oral powder packet 17 g PO DAILY Check with primary doctor 03/08/23 vit A 300 mcg-C 200 mg-E 27 mg-lutein 2 mg and minerals tablet (Healthy Eyes) 1 cap PO DAILYCM Check with primary doctor 03/08/23 apixaban 5 mg tablet (Eliquis) 5 mg PO BID 30 days #60 tabs 03/13/23 carvedilol 25 mg tablet 12.5 mg PO BID Check with primary doctor 30 days #0 tabs 03/13/23 cefdinir 300 mg capsule 300 mg PO BID 2 days #4 caps 03/13/23 guaifenesin 1,200 mg tablet, extended release 12 hr (Mucus Relief ER) 1,200 mg PO BID 7 days #14 tabs 03/13/23 losartan 100 mg tablet 50 mg PO DAILY Check with primary doctor 30 days #0 tabs 03/13/23 sennosides 8.6 mg-docusate sodium 50 mg tablet (Stool Softener-Stimulant Laxative) 2 tab PO BID #0 tabs 03/13/23 Physical Exam Narrative Patient is still mild short of breath at rest. On BiPAP at night. On 4 L of oxygen. Patient wants to go home but needs BiPAP at night. He has old CPAP more than 10 years old and needs sleep study for new CPAP/BiPAP although did not state that he was using oxygen before Physical exam General: Alert, Oriented x3, Cooperative, morbid obesity, BMI 42.2 kg/m? HEENT: Atraumatic, PERRLA, EOMI, Normocephalic Oral: Oral mucosa moist. No Gingival or Mucosal Lesions/ Ulcerations Neck: Supple, No JVD, Negative Carotid Bruits Lungs: Air entry diminished in bilateral lung bases. Lungs clear. Cardiovascular: Sinus bradycardia, Normal S1, Normal S2, systolic murmur LLSB Abdomen: Bowel Sounds Present, Soft, Non Tender, Non-Distended : No renal angle tenderness. No suprapubic tenderness. Extremities: Bilateral edema, Capillary Refill Less than 3 Seconds Skin:Small superficial ulcer. Left knee bruise after fall. Chronic venous hypertensive changes with grayish pigmentation, Musculoskeletal: No Tenderness to Palpation of Joints or Extremities. Bilateral knee arthritis. Neurological: Cranial nerves II-XII grossly intact, DTR 2+/4 and Symmetrical, Neuro grossly intact Psych/Mental Status: Flat affect. Weight / BMI Weight Weight: 301 lb 2.423 oz Body Mass Index (BMI) 42.0 ABG / Lab / Microbiology Data Result Diagrams: 03/12/23 06:45 03/13/23 04:20 Laboratory: Laboratory Results - last 24 hr 03/13/23 04:20: Sodium 139, Potassium 4.2, Chloride 103, Carbon Dioxide 30.0, Anion Gap 6, BUN 18, Creatinine 0.70, Estim Creat Clear Calc 112.05, Est GFR (MDRD) Af Amer 145, Est GFR (MDRD) Non-Af 120, BUN/Creatinine Ratio 25.7 H, Glucose 113 H, Calcium 10.3 H, Magnesium 1.9, Total Bilirubin 0.60, AST 15, ALT 19, Alkaline Phosphatase 108, Total Protein 6.6, Albumin 3.3, Globulin 3.3, Albumin/Globulin Ratio 1.0 Microbiology: Microbiology 03/09/23 21:20 Urine, Clean Catch Legionella Antigen - Final 03/09/23 21:20 Urine, Clean Catch Streptococcus pneumoniae Antigen (M - Final 03/08/23 16:55 Mucosa - Nose Respiratory Panel (PCR) - Final D/C Instructions Discharge Diet: No restrictions Weight Bearing Status: Weight bearing as tolerated Call your doctor if you observe: Fever of 101 or Higher, Coldness, Increased Pain, Numbness or Tingling, Change in Color, Inability to urinate, Inability to have a bowel movement, Shortness of breath, Dizziness, Fainting spells, Swelling in the ankles, Chest pain, Prolonged hiccupping, Increased palpitations (irregular heartbeat) and Calf discomfort When: IN 2 WEEKS Meaningful Use Info Meaningful Use Diagnoses (Choose all that apply): None applicable Discharge Plan Admission Admit Date/Time: 03/08/23 14:03 Attending Provider: Keith Pink Primary Care Provider: Arleen Hwang Consulting Providers: Apryl Fung Instructions Additional Instructions / Restrictions: Follow-up in wound clinic every week. Discharge Orders/Prescriptions Prescriptions: New sennosides-docusate sodium [Stool Softener-Stimulant Laxat] 8.6-50 mg Tablet 2 tab PO BID Qty: 0 0RF Rx Instructions: Hold if more than 1 bowel movement per day Mucus Relief ER 1,200 mg Tablet Extended Release 12hr 1,200 mg PO BID 7 Days Qty: 14 0RF Eliquis 5 mg Tablet 5 mg PO BID 30 Days Qty: 60 2RF cefdinir 300 mg capsule 300 mg PO BID 2 Days Qty: 4 0RF Continued amlodipine 10 MG tablet 10 mg PO QHS escitalopram oxalate 20 MG tablet 10 mg PO DAILY bupropion HCl 75 mg tablet 75 mg PO DAILY Label Comments: START WITH TAKING 1 TABLET DAILY AND INCREASE TO 1 TABLET TWICE DAILY IF TOLERATED bethanechol chloride 25 mg Tablet 25 mg PO TID 30 Days Qty: 90 0RF cyclobenzaprine 5 mg Tablet 5 mg PO TID PRN PRN (Reason: Muscle Spasm) 30 Days Qty: 90 0RF cholestyramine (with sugar) 4 gram Powder In Packet 4 g PO DAILY@1000 30 Days Qty: 30 0RF albuterol sulfate 90 mcg/actuation HFA aerosol inhaler 2 puff INHALATION Q6H Label Comments: INHALE 2 PUFFS BY MOUTH EVERY 6 HOURS NEEDED FOR WHEEZING OR SHORTNESS OF BREATH acetaminophen 325 mg Tablet 650 mg PO Q6H PRN PRN (Reason: Pain 1-10 Or Fever>100.7) Qty: 0 0RF hydrocodone-acetaminophen 5-325 mg Tablet 1 tab PO Q4H PRN PRN (Reason: Moderate to severe pain 4-10) 2 Days Qty: 8 0RF gabapentin 600 mg tablet 600 mg PO TIDCM polyethylene glycol 3350 17 gram powder in packet 17 g PO DAILY famotidine 20 mg tablet 20 mg PO BID ferrous sulfate [FeroSul] 325 mg (65 mg iron) tablet 325 mg PO DAILY@1200 lidocaine 5 % adhesive patch,medicated 1 patch topical 0800 fluticasone propionate 50 mcg/actuation spray,suspension 2 spray NASAL DAILY Healthy Eyes 300 mcg-200 mg-27 mg-2 mg tablet 1 cap PO DAILYCM Mag 64 64 mg tablet,delayed release (DR/EC) 128 mg PO DAILY Changed carvedilol 25 mg tablet 12.5 mg PO BID 30 Days Qty: 0 0RF Label Comments: TAKE 1 TABLET BY MOUTH TWICE A DAY WITH MEALS Rx Instructions: Hold for heart less than 60 or systolic blood pressure less than 100 mmHg. losartan 100 mg tablet 50 mg PO DAILY 30 Days Qty: 0 0RF Label Comments: TAKE 1 TABLET BY MOUTH EVERY DAY Discontinued gabapentin 600 mg tablet 600 mg PO TID docusate sodium 100 mg capsule 100 mg PO BID Referrals / Follow Up: Mckinley Marmolejo MD [Med Staff - Active Staff] - Within 1 Month (FOR HF) Arleen Hwang MD [Primary Care Provider] - Within 2 Weeks Dallin Ngo DO [Med Staff - Active Staff] - Within 1 Week (For sleep study/Bipap machine, PFT) Terence Fofana MD [Med Staff - Active Staff] - Within 1 Week Disposition Disposition (needs filled in before D/C Order can be placed): Home Health Service Charges/Coding Visit Charges Inpatient E&M: 76614 Disch Hosp >30min
--- NOTE | 2023-03-13 14:22 | CASEMGMT ---
Addendum entered by Naz Gilman 03/13/23 15:12: Patient is discharging with [facility] called cost is $42. Savings card provided to patient. Original Note: TONY JOVEL reviewed therapy notes and patient is able to discharge home [facility] TONY JOVEL in to discuss discharge plans with patient, patient agreeable to [facility] TONY JOVEL updated patient to have caregiver bring in portable tank from home for at discharge. Patient will need updated oxygen, script received and sent to [facility] patient's oxgyen supplier. TONY JOVEL updated [facility] of discharge and they will see patient tomorrow. Patient had no further questions or concerns at this time.
--- NOTE | 2023-03-13 15:06 | PHA.DC.MC ---
Pharmacy Service has performed discharge medication reconciliation and counseling for this patient. 1. APIXABAN 5MG PO BID 2. CEFDINIR 300MG PO BID X 2 DAYS 3. GUAIFENESIN 1200MG PO BID X 7 DAYS 4. SENNA/DOCUSATE 2T PO BID The patient's discharge medication list was reviewed for discrepancies and discrepancies were resolved. Home Medications amlodipine 10 mg tablet 10 mg PO QHS Blood pressure 10/14/19 escitalopram oxalate 20 mg tablet 10 mg PO DAILY Check with primary doctor 10/14/19 bupropion HCl 75 mg tablet 75 mg PO DAILY Depression 09/18/22 bethanechol chloride 25 mg tablet 25 mg PO TID 30 days #90 tabs 01/07/23 cholestyramine (with sugar) 4 gram powder for susp in a packet 4 g PO DAILY@1000 30 days #30 ea 01/07/23 cyclobenzaprine 5 mg tablet 5 mg PO TID PRN PRN Muscle Spasm 30 days #90 tabs 01/07/23 albuterol sulfate 90 mcg/actuation aerosol inhaler 2 puff inhalation Q6H sob 01/14/23 acetaminophen 325 mg tablet 650 mg PO Q6H PRN PRN Pain 1-10 Or Fever>100.7 #0 tabs 01/17/23 hydrocodone-acetaminophen 5-325mg 5mg-325mg 1 tab PO Q4H PRN PRN Moderate to severe pain 4-10 2 days #8 tabs 01/17/23 famotidine 20 mg tablet 20 mg PO BID Check with primary doctor 03/08/23 ferrous sulfate 325 mg (65 mg iron) tablet (FeroSul) 325 mg PO DAILY@1200 Check with primary doctor 03/08/23 fluticasone propionate 50 mcg/actuation nasal spray,suspension 2 spray NASAL DAILY Check with primary doctor 03/08/23 gabapentin 600 mg tablet 600 mg PO TIDCM Check with primary doctor 03/08/23 lidocaine 5 % topical patch 1 patch topical 0800 Check with primary doctor 03/08/23 magnesium chloride 64 mg (magnesium chloride) tablet,delayed release (Mag 64) 128 mg PO DAILY Check with primary doctor 03/08/23 polyethylene glycol 3350 17 gram oral powder packet 17 g PO DAILY Check with primary doctor 03/08/23 vit A 300 mcg-C 200 mg-E 27 mg-lutein 2 mg and minerals tablet (Healthy Eyes) 1 cap PO DAILYCM Check with primary doctor 03/08/23 apixaban 5 mg tablet (Eliquis) 5 mg PO BID 30 days #60 tabs 03/13/23 carvedilol 25 mg tablet 12.5 mg PO BID Check with primary doctor 30 days #0 tabs 03/13/23 cefdinir 300 mg capsule 300 mg PO BID 2 days #4 caps 03/13/23 guaifenesin 1,200 mg tablet, extended release 12 hr (Mucus Relief ER) 1,200 mg PO BID 7 days #14 tabs 03/13/23 losartan 100 mg tablet 50 mg PO DAILY Check with primary doctor 30 days #0 tabs 03/13/23 sennosides 8.6 mg-docusate sodium 50 mg tablet (Stool Softener-Stimulant Laxative) 2 tab PO BID #0 tabs 03/13/23 The patient was counseled on the following discharge medications and changes in medications for homegoing were reviewed. The Reason for Use, instructions for use, and potential side effects were reviewed for all new medications. The patient's questions regarding all of their medications were answered. The patient was able to verbally demonstrate an understanding of their discharge medications.
== END 2023-03-13 17:04 | disposition home health service (06) | DRG 193 ==
LOC: ED 13:08 → MS3 14:10 → PCU 16:04
PROVIDERS: Admitting Provider Internal Medicine; Emergency Provider Emergency Medicine; PCP Internal Medicine; Visit Provider Internal Medicine
DX: J18.9 Pneumonia, unspecified organism (principal); J96.21 Acute and chronic respiratory failure with hypoxia; K92.0 Hematemesis; I48.92 Unspecified atrial flutter; Z68.41 Body mass index [BMI] 40.0-44.9, adult; R62.7 Adult failure to thrive; I48.91 Unspecified atrial fibrillation; E66.01 Morbid (severe) obesity due to excess calories; I10 Essential (primary) hypertension; G47.33 Obstructive sleep apnea (adult) (pediatric); Z87.891 Personal history of nicotine dependence; Z20.822 Contact with and (suspected) exposure to COVID-19; Z79.899 Other long term (current) drug therapy; Z79.51 Long term (current) use of inhaled steroids; Z86.711 Personal history of pulmonary embolism; Z86.718 Personal history of other venous thrombosis and embolism
CPT/HCPCS: 36415; 71045; 71275; 80048; 80053; 83735; 83880; 84443; 84484; 85025; 85379; 85610; 85730; 87449; 87633; 87635; 93005; 93306; 94002; 94003; 94640; 94668; 94762; 97110; 97116; 97162; 97530; 99252; 99285; Q9957; Q9967; A4216; C8929; G0463; J0696; J1940; U0005

== ENCOUNTER → 2023-03-21 | Outpatient (CLI) | payer MEDICARE, SELFPAY ==
[2023-03-21 13:59] VITALS: PULSE 58; PULSE 61; PULSE 64; PULSE 78; PULSE 80; PULSE 82; PULSE 85; PULSE 86; O2SAT 87; O2SAT 88; O2SAT 91; O2SAT 93; O2SAT 94; O2SAT 95; O2SAT 96
--- NOTE | 2023-03-21 14:06 | CPS ---
PATIENT ARRIVED ON HOME POC ([facility]). PLACED ON RA FOR 10 MINUTES PRIOR TO TESTING. PT WAS PROVIDED WITH A WALKER TO USE FOR TESTING WITH SOMEONE FOLLOWING BEHIND HIM WITH A W/C. HE GAIT WAS SLOW AND SHAKY. MIN 1: PT WAS PLACED ON OWN POC 2LPM DEMAND FLOW SPO2 87%. MIN 2: INCREASED TO 3LPM DEMAND FLOW FOR SPO2 88%. PT WANTED A BREAK, SPO2 CONTINUED TO FALL, INCREASED TO 4 AND 5LPM WITHOUT ACCEPTABLE RESOLUTION OF SPO2. PLACED ON 2LPM CONT FLOW. MIN 4: PT BEGAN WALKING AGAIN, 2LPM CONT FLOW USED FOR DURATION OF TESTING. PATIENT RESTED AGAIN AT MINUTE 5, FOR REMAINDER OF TEST. PT AMBULATED 96FT DURING 6MIN WALK TEST WITH 2 EXTENDED REST BREAKS DURING TESTING. MAIN COMPLAINTS WERE ARM FATIGUE (FROM USING WALKER), INCREASED WORK OF BREATHING AND BACK SPASMS.
--- NOTE | 2023-03-22 05:52 | WT_ITS ---
PSN 6 Minute Walk Test 6 Minute Walk Test 6 Minute Walk Test: 6 Minute Walk Test PSN:6-Minute Walk Test Start: 03/21/23 13:59 Freq: Status: Active Protocol: RESP.6MINW Document 03/21/23 13:59 [facility] (Rec: 03/21/23 14:16 [facility] [id number]) 6 Minute Walk Test Date Performed 03/21/23 Time Performed 13:45 Height 5 ft 11 in Weight: 136.078 kg Weight in Pounds 300.[address]: AMP Assistive device used: Walker Pre-test Oxygen Delivery Method Room Air Pulse Ox (%) 91 Pulse Rate (60-100 beats/min) 58 L Dyspnea Baron Scale (0-10) 2 1st minute Oxygen Delivery Method Room Air Pulse Ox (%) 87 Pulse Rate (60-100 beats/min) 64 Dyspnea Baron Scale (0-10) 3 Number of Rests Taken 0 Reported Symptoms Increased Work of Breathing 2nd minute Oxygen Flow Rate (L/min) (L/min) 5 Oxygen Delivery Method Nasal Cannula Pulse Ox (%) 88 Pulse Rate (60-100 beats/min) 86 Dyspnea Baron Scale (0-10) 5 Number of Rests Taken 1 Reported Symptoms Increased Work of Breathing 3rd minute Oxygen Flow Rate (L/min) (L/min) 2 Oxygen Delivery Method Nasal Cannula Pulse Ox (%) 95 Pulse Rate (60-100 beats/min) 78 Dyspnea Baron Scale (0-10) 2 Number of Rests Taken 1 Reported Symptoms Increased Work of Breathing 4th minute Oxygen Flow Rate (L/min) (L/min) 2 Oxygen Delivery Method Nasal Cannula Pulse Ox (%) 96 Pulse Rate (60-100 beats/min) 82 Dyspnea Baron Scale (0-10) 3 Number of Rests Taken 0 Reported Symptoms Increased Work of Breathing 5th minute Oxygen Flow Rate (L/min) (L/min) 2 Oxygen Delivery Method Nasal Cannula Pulse Ox (%) 95 Pulse Rate (60-100 beats/min) 85 Dyspnea Baron Scale (0-10) 5 Number of Rests Taken 1 Reported Symptoms Increased Work of Breathing 6th minute Oxygen Flow Rate (L/min) (L/min) 2 Oxygen Delivery Method Nasal Cannula Pulse Ox (%) 93 Pulse Rate (60-100 beats/min) 80 Dyspnea Baron Scale (0-10) 3 Number of Rests Taken 1 Reported Symptoms Increased Work of Breathing Post-test Oxygen Flow Rate (L/min) (L/min) 2 Oxygen Delivery Method Nasal Cannula Pulse Ox (%) 94 Pulse Rate (60-100 beats/min) 61 Dyspnea Baron Scale (0-10) 2 Reported Symptoms Increased Work of Breathing Full Laps Walked 1 Partial Lap, Number of Tiles Walked 37 Total Distance Walked (ft) 96 03/21/23 14:06 Cardiopulmonary Services by Sravani Ayala PATIENT ARRIVED ON HOME POC ([employer]). PLACED ON RA FOR 10 MINUTES PRIOR TO TESTING. PT WAS PROVIDED WITH A WALKER TO USE FOR TESTING WITH SOMEONE FOLLOWING BEHIND HIM WITH A W/C. HE GAIT WAS SLOW AND SHAKY. MIN 1: PT WAS PLACED ON OWN POC 2LPM DEMAND FLOW SPO2 87%. MIN 2: INCREASED TO 3LPM DEMAND FLOW FOR SPO2 88%. PT WANTED A BREAK, SPO2 CONTINUED TO FALL, INCREASED TO 4 AND 5LPM WITHOUT ACCEPTABLE RESOLUTION OF SPO2. PLACED ON 2LPM CONT FLOW. MIN 4: PT BEGAN WALKING AGAIN, 2LPM CONT FLOW USED FOR DURATION OF TESTING. PAT IENT RESTED AGAIN AT MINUTE 5, FOR REMAINDER OF TEST. PT AMBULATED 96FT DURING 6MIN WALK TEST WITH 2 EXTENDED REST BREAKS DURING TESTING. MAIN COMPLAINTS WERE ARM FATIGUE (FROM USING WALKER), INCREASED WORK OF BREATHING AND BACK SPASMS. Initialized on 03/21/23 14:06 - END OF NOTE Interpretation Interpretation: The patient was noted to be 91% on room air at rest, but did desaturate to 87% within 1 minute of ambulation. Patient was then placed on up to 3 L demand flow to maintain saturations throughout testing. In total, the patient traveled only 96 feet with the assistance of a walker and 3 breaks. These findings are consistent with a respiratory limitation exercise tolerance. Recommendations Recommendations: The patient requires no supplemental oxygen at rest, but should be using 3 L pulsed dose with any exertion.
== END | disposition home or self-care (01) ==
PROVIDERS: PCP Internal Medicine
DX: J84.10 Pulmonary fibrosis, unspecified (principal)
CPT/HCPCS: 94618

== ENCOUNTER → 2023-03-28 | Outpatient (CLI) | payer MEDICARE, SELFPAY ==
--- NOTE | 2023-03-29 10:32 | PFT ---
INTRODUCTION: The patient is a 67-year-old male that presents for pulmonary function studies secondary to a diagnosis of pulmonary fibrosis. Respiratory therapy reported good patient effort. Bronchodilators were used during testing. INTERPRETATION: Forced expiration spirometry demonstrated the presence of a moderately severe large airways obstructive ventilatory defect. There was no significant response to aerosolized bronchodilators. Spirograms are of good quality and plateau gradually indicating slow emptying of the lungs. Body plethysmography was performed and revealed a decreased TLC to 5.18 L, 76% of predicted, indicative of a mild restrictive ventilatory impairment. Diffusing capacity by single breath CO is reduced to 43% of predicted. IMPRESSION: Irreversible moderately severe mixed ventilatory defect with symmetric reduction in diffusing capacity.
== END | disposition home or self-care (01) ==
LOC: PSN 08:38
PROVIDERS: PCP Internal Medicine
DX: J84.10 Pulmonary fibrosis, unspecified (principal)
CPT/HCPCS: 94060; 94726; 94729

== ENCOUNTER → 2023-04-29 | Outpatient (CLI) | payer MEDICARE, SELFPAY ==
--- NOTE | 2023-04-29 15:00 | PET_ITS ---
EXAMINATION: F [address] INDICATIONS: A 68-year-old male with a history of primary prostate carcinoma. COMPARISON: None available INDEX LESION SIZE SUV PROMISE SCORE INTERPRETATION Prostate gland to the left of midline 21.1 mm 8.3 2 Fulfills quantitative criteria for viable neoplasm. TECHNIQUE: Following the intravenous administration of 9.98 mCi of PSMA-Pylarify via the right hand, image acquisitions of the head, neck, chest, abdomen and pelvis to the level of the mid thigh at 73 minutes post-tracer distribution reveal: The examination was interpreted using the EANM (Luis Enrique et al., Journal of Nuclear Medicine Molecular Imaging 44:1622, 2017) and PROMISE (Zach et al., Journal of Nuclear Medicine 59:469, 2018) interpretive criteria. HEIGHT: 71 inches. WEIGHT: 285 lbs. PSMA expression score PROMISE criteria: High (3): SUV ? parotid-salivary gland, intermediate (2): SUV ? liver, low (1): > blood pool, < liver, (0): < blood pool. SUV reference values: Parotid glands 15.66 Normal liver parenchyma 8.9 Blood pool 2.4 FINDINGS: Head/Neck: Meticulous attention paid to the cranial vault reveals no evidence of increased tracer uptake. Physiologic uptake is noted in the bilateral and submandibular glands. Normal tracer uptake is defined in the nasal cavity. CHEST: There is no evidence of abnormal increased radiopharmaceutical within the context of the bilateral hemithorax pulmonary parenchyma, mediastinal structures and right-left thoracic perihilum. Pertinent chest CT findings are as follows. Atherosclerotic calcification is defined in the thoracic aorta without evidence of dilatation, aneurysm formation. Coronary arterial calcification is observed. Right and left axillar soft tissue densities are non-tracer avid. Scattered mediastinal soft tissue reveals no evidence of increased radiopharmaceutical uptake. There are no parenchymal densities-nodules defined in the right and left hemithorax with increased radiotracer distribution. Abdomen/Pelvis: Facilitated uptake is noted in the lower pelvis to the urinary bladder region of the prostate bed. The calculated maximum standard uptake value is 8.3. The PROMISE score is 2. The maximum axial diameter of the metabolic, morphologic abnormality is 21.1 mm. Abdomen and pelvis CT findings are as follows. Right and left inguinal soft tissue densities are ametabolic. Colonic diverticulosis is noted without evidence of diverticulitis. There is atherosclerotic calcification defined in the abdominal aorta without evidence of dilatation-aneurysm formation. Pelvic arterial calcification is observed. Filter placement is noted in the inferior vena cava. Skeletal: Degenerative changes defined in the cervical, thoracic and lumbar spine demonstrate no evidence of glucose hypermetabolism. Orthopedic hardware placement is noted in the upper thoracic spine commensurate with spinal fusion operative intervention. PET/PET/CT Tumor WB Initial IMPRESSION: 1. ABNORMAL EXAMINATION INDICATIVE OF MALIGNANT-VIABLE NEOPLASM. 2. Increased radiopharmaceutical concentration noted in the prostate gland to the left of the midline extending from the apex of the base fulfills quantitative criteria for malignant transformation. 3. No other quantitatively significant hypermetabolic abnormalities are noted. Electronic Signature Jet Boyd D.O. Accurate Quantification of SUVs and standardized PROMISE scores for this report are calculated using the exclusive [employer], ([place]. Patent No. [id number] [phone] [id number] [phone] patent [phone] [id number] ). Standardization and correction of the FDG SUV metric exclusively available with [employer] intellectual property, allow for vendor non-specific objective quantitative sequential FDG PET-CT comparison and otherwise unobtainable optimization of the sensitivity and specificity of the examination. Electronically Signed: Jet Boyd, at 15:33 EDT ,
== END | disposition home or self-care (01) ==
PROVIDERS: PCP Internal Medicine; Referring Provider Internal Medicine; Visit Provider Internal Medicine
DX: C61 Malignant neoplasm of prostate (principal)
CPT/HCPCS: 78816; A9595

== ENCOUNTER 2023-06-19 17:51 | Emergency (ER) | payer MEDICARE, SELFPAY ==
[2023-06-19 17:53] VITALS: PULSE 40; RESP 14; TEMP 36.2; O2SAT 95; BMI 42.1
[2023-06-19 17:55] VITALS: BP 118/64
--- NOTE | 2023-06-19 18:22 | EX.ED.DYSGE1 ---
HPI History of Present Illness Chief Complaint: Weakness Informant: patient Onset/Context/Timing Onset: Today Narrative Narrative: Patient presents with weakness and fall at home. He was trying to transfer from his wheelchair to his recliner when he fell to the floor. EMS was called for lift assist. They noted the patient's heart rate was slow in the 40s and appeared to be atrial fibrillation. Patient denied knowing that he had a history of A-fib. Patient does state that he had several doctors appointments today and was out more than normal with more transfers than he normally does. He denies chest pain or significant shortness of breath. No vomiting or diarrhea. He has noted decreased appetite recently. On review of records, patient was admitted in February of this year with generalized weakness and mild hypoxia. At that time he was found to have A-fib/a flutter with slow ventricular rate. He was placed on Eliquis and his carvedilol and losartan doses were decreased. When I review patient's prior hospital visits it appears his heart rate will often run in the 40s and 50s. [facility] Medical History Atrial flutter Cancer Essential hypertension Hx of pulmonary embolus Hypertension Obstructive sleep apnea FELA (obstructive sleep apnea) Psoriasis Home Medications amlodipine 10 mg tablet 10 mg PO QHS Blood pressure 10/14/19 [History Last Taken 10/17/20] escitalopram oxalate 20 mg tablet 10 mg PO DAILY Check with primary doctor 10/14/19 [History Last Taken 10/22/22] bupropion HCl 75 mg tablet 75 mg PO DAILY Depression 09/18/22 [History Last Taken Unknown] bethanechol chloride 25 mg tablet 25 mg PO TID 30 days #90 tabs 01/07/23 [Rx Last Taken Unknown] albuterol sulfate 90 mcg/actuation aerosol inhaler 2 puff inhalation Q6H sob 01/14/23 [History Last Taken Unknown] acetaminophen 325 mg tablet 650 mg (2 x 325 mg) PO Q6H PRN PRN Pain 1-10 Or Fever>100.7 #0 tabs 01/17/23 [Rx Last Taken Unknown] ferrous sulfate 325 mg (65 mg iron) tablet (FeroSul) 325 mg PO DAILY@1200 Check with primary doctor 03/08/23 [History Last Taken Unknown] fluticasone propionate 50 mcg/actuation nasal spray,suspension 2 spray NASAL DAILY Check with primary doctor 03/08/23 [History Last Taken Unknown] gabapentin 600 mg tablet 600 mg PO TID Check with primary doctor 03/08/23 [History Last Taken Unknown] lidocaine 5 % topical patch 1 patch topical 0800 Check with primary doctor 03/08/23 [History Last Taken Unknown] magnesium chloride 64 mg (magnesium chloride) tablet,delayed release (Mag 64) 250 mg PO DAILY Check with primary doctor 03/08/23 [History Last Taken Unknown] vit A 300 mcg-C 200 mg-E 27 mg-lutein 2 mg and minerals tablet (Healthy Eyes) 1 cap PO DAILYCM Check with primary doctor 03/08/23 [History Last Taken Unknown] apixaban 5 mg tablet (Eliquis) 5 mg PO BID 30 days #60 tabs 03/13/23 [Rx Last Taken Unknown] carvedilol 25 mg tablet 12.5 mg (1/2 x 25 mg) PO BID Check with primary doctor 30 days #0 tabs 03/13/23 [Rx Last Taken 10/22/22] losartan 100 mg tablet 50 mg (1/2 x 100 mg) PO DAILY Check with primary doctor 30 days #0 tabs 03/13/23 [Rx Last Taken Unknown] sennosides 8.6 mg-docusate sodium 50 mg tablet (Stool Softener-Stimulant Laxative) 2 tab PO BID #0 tabs 03/13/23 [Rx Last Taken Unknown] cholecalciferol (vitamin D3) 1,250 mcg (50,000 unit) capsule 1,250 mcg PO QWEEK 06/19/23 [History Last Taken Unknown] colestipol 1 gram tablet 1 g PO DAILY 06/19/23 [History Last Taken Unknown] hydrocodone 7.5 mg-acetaminophen 325 mg tablet 1 tab PO Q6H PRN pain 06/19/23 [History Last Taken Unknown] ketoconazole 2 % topical cream 1 applic topical DAILY 06/19/23 [History Last Taken Unknown] lisinopril 40 mg tablet 40 mg PO DAILY 06/19/23 [History Last Taken Unknown] teriparatide 20 mcg/dose (600 mcg/2.4 mL) subcutaneous pen injector (Forteo) 20 mcg subcut DAILY 06/19/23 [History Last Taken Unknown] tizanidine 2 mg capsule 4 mg PO Q12H 06/19/23 [History Last Taken Unknown] Allergy/AdvReac Type Severity Reaction Status Date / Time lorazepam Allergy Other Verified 06/19/23 17:55 Penicillins Allergy Itching Verified 06/19/23 17:55 poison ever extract Allergy Itching Verified 06/19/23 17:55 tizanidine [From Zanaflex] Allergy Other Verified 06/19/23 17:55 Family History Mother CVA (cerebral vascular accident) Father CAD (coronary artery disease) Hypertension Cancer Prostate Other Brain aneurysm Heart disease Prostate CA Surgical History History of carpal tunnel surgery History of herniorrhaphy Hx of appendectomy Hx of cholecystectomy Status post laminectomy Social History household members: spouse Smoking Status: Former smoker alcohol intake: current alcohol intake frequency: 3 or more drinks per day substance use type: does not use ROS ROS ED Constitutional Constitutional ED: Denies chills or fever(s) Eyes Eyes: Denies change in vision ENT ENT ED: Denies rhinorrhea or sore throat Cardiovascular Cardiovascular: Denies chest pain or palpitations Respiratory/Chest Respiratory/Chest: Denies cough or dyspnea Gastrointestinal Gastrointestinal: Denies abdominal pain, nausea or vomiting Genitourinary Genitourinary ED: Denies dysuria Musculoskeletal Musculoskeletal: Reports back pain, extremity pain and other Details: Chronic back and extremity pain, unchanged from baseline. Integumentary Reports Abrasions; Denies rash Neurologic Neurologic: Reports weakness; Denies headache(s) Psychiatric Psychiatric: Denies anxiety or depression Allergic/Immunologic Allergic/Immunologic ED: Denies lip swelling or urticaria EXAM Physical Exam Const Vital Signs: 06/19/23 17:53 06/19/23 17:55 06/19/23 17:56 Temperature 97.1 F L Temperature Source Temporal Pulse Rate 40 L Respiratory Rate 14 Respiratory Effort Normal Non-Labored Respiratory Pattern Normal Blood Pressure 118/64 Blood Pressure Mean 82 Pulse Ox 95 Oxygen Delivery Method Nasal Cannula Oxygen Flow Rate (L/min) 3 Positive well nourished and well developed General Appearance ED: well developed HEENT Reports normocephalic and head/scalp atraumatic Eyes PERRL and EOMs intact bilaterally Neck supple Chest Wall inspection of chest normal and palpation of chest normal Resp normal respiratory effort and clear to auscultation bilaterally Cardio regular rhythm Rate: bradycardia GI non-tender Palpation: soft Extremity Extremity Narrative: 3+ bilateral lower extremity edema. Superficial abrasions to the left arteaga. No bony tenderness. Neuro oriented x3 Sensorium / Orientation: alert Psych mental status grossly normal MDM MDM MDM Narrative Medical decision making narrative: Patient placed on secured entrance monitor. EKG obtained to evaluate for cardiac arrhythmia/ischemia. Chest x-ray obtained to evaluate for acute lung pathology, cardiac size, or mediastinal abnormality. Labwork obtained to evaluate for leukocytosis, anemia, and electrolyte derangement. Urinalysis obtained to evaluate for infection/hematuria. As noted above, on review of records patient does have known history of A-fib/a flutter. He is also known to have chronic bradycardia. History & Record Review Discussion w/independent historian: Patient and Significant other Additional record(s) reviewed:: Prior inpatient record, Prior outpatient record, Prior ED visit and Prior labs Lab Data Attestation: I reviewed the patient's lab results. Labs: Laboratory Results - last 24 hr 06/19/23 06/19/23 18:40 19:33 WBC 5.1 RBC 3.12 L Hgb 10.8 L Hct 32.5 L MCV 104.2 H MCH 34.6 H MCHC 33.2 RDW Std Deviation 48.2 H RDW Coeff of Justine 12.8 Plt Count 166 MPV 7.9 Immature Gran % (Auto) 0.400 Neut % (Auto) 53.3 Lymph % (Auto) 28.7 [place] % (Auto) 14.6 H Eos % (Auto) 2.6 Baso % (Auto) 0.4 Absolute Neuts (auto) 2.7 Absolute Lymphs (auto) 1.46 Nucleated RBC % 0 Sodium 137 Potassium 3.7 Chloride 100 Carbon Dioxide 28.0 Anion Gap 9 BUN 19 H Creatinine 0.98 Estim Creat Clear Calc 78.97 Est GFR (MDRD) Af Amer 98 Est GFR (MDRD) Non-Af 81 BUN/Creatinine Ratio 19.3 Glucose 105 Calcium 9.3 TSH 1.46 Urine Color Yellow Urine Clarity Clear Urine pH 6.0 Ur Specific [place] 1.020 Urine Protein 30 H Urine Glucose (UA) Normal Urine Ketones Negative Urine Occult Blood Negative Urine Nitrite Negative Urine Bilirubin Negative Urine Urobilinogen Normal Ur Leukocyte Esterase 25 H Urine RBC 0 SEEN Urine WBC 0-5 SEEN Ur Squamous Epith Cells 0-5 SEEN Urine Bacteria 0 SEEN Hyaline Casts 10-25 SEEN Urine Mucus 0 SEEN Radiography Chest X-Ray - ED: 1 View, Read by ED Physician and Chronic Changes Diagnostic Testing: Clinical Impression(s) from Imaging Studies Chest X-Ray 06/19/23 18:53 IMPRESSION: No radiographic evidence of acute cardiopulmonary disease. Electronically Signed: Jamison Torres MD at 19:38 EDT Reading Location ID and State: [facility] / [place] Tel , Service support , EKG Initial EKG: Attestation: I personally reviewed and interpreted this EKG as follows: Interpretation: Atrial Flutter (Atrial flutter with ventricular rate of 43 bpm. No acute ischemia.) Treatment and Re-Evaluation :: CBC was normal white count. Hemoglobin is 10.8 which is slightly improved when compared to prior labs. Chemistry studies are unremarkable. TSH is normal at 1.46. Urinalysis reveals no evidence of acute infection. Test results discussed with patient and family at bedside. He does admit that he did a lot more activity today than normal and thinks he is just weak from the overactivity. He does feel that he is able to go home. When he was discharged in the hospital in February and his carvedilol was decreased, it was recommended that he hold this medication for heart rate less than 60 or systolic blood pressure less than 100. While it appears his primary care doctor still has him on the lower dose of carvedilol, he does not have any hold parameters. I asked him for the next week to check his heart rate before he takes his medication. I asked him to hold it if his heart rate is less than 60 and keep a journal of his vital signs to see if this improves any of his symptoms. Return instructions are given. Discharge Plan Triage Chief Complaint: Weakness ED Provider: Ruth Ann Bucio Dx/Rx/DC Orders Clinical Impression: Weakness, Bradycardia, Fall, Atrial flutter Instructions: ED Atrial Flutter, ED Bradycardia, ED Weakness (Uncertain Cause) Prescriptions: No Action amlodipine 10 MG tablet 10 mg PO QHS escitalopram oxalate 20 MG tablet 10 mg PO DAILY bupropion HCl 75 mg tablet 75 mg PO DAILY Patient Comments: START WITH TAKING 1 TABLET DAILY AND INCREASE TO 1 TABLET TWICE DAILY IF TOLERATED bethanechol chloride 25 mg Tablet 25 mg PO TID 30 Days Qty: 90 0RF albuterol sulfate 90 mcg/actuation HFA aerosol inhaler 2 puff INHALATION Q6H Patient Comments: INHALE 2 PUFFS BY MOUTH EVERY 6 HOURS NEEDED FOR WHEEZING OR SHORTNESS OF BREATH acetaminophen 325 mg Tablet 650 mg PO Q6H PRN PRN (Reason: Pain 1-10 Or Fever>100.7) Qty: 0 0RF gabapentin 600 mg tablet 600 mg PO TID ferrous sulfate [FeroSul] 325 mg (65 mg iron) tablet 325 mg PO DAILY@1200 lidocaine 5 % adhesive patch,medicated 1 patch topical 0800 fluticasone propionate 50 mcg/actuation spray,suspension 2 spray NASAL DAILY Healthy Eyes 300 mcg-200 mg-27 mg-2 mg tablet 1 cap PO DAILYCM Mag 64 64 mg tablet,delayed release (DR/EC) 250 mg PO DAILY sennosides-docusate sodium [Stool Softener-Stimulant Laxat] 8.6-50 mg Tablet 2 tab PO BID Qty: 0 0RF Rx Instructions: Hold if more than 1 bowel movement per day Eliquis 5 mg Tablet 5 mg PO BID 30 Days Qty: 60 2RF carvedilol 25 mg tablet 12.5 mg PO BID 30 Days Qty: 0 0RF Patient Comments: TAKE 1 TABLET BY MOUTH TWICE A DAY WITH MEALS Rx Instructions: Hold for heart less than 60 or systolic blood pressure less than 100 mmHg. losartan 100 mg tablet 50 mg PO DAILY 30 Days Qty: 0 0RF Patient Comments: TAKE 1 TABLET BY MOUTH EVERY DAY lisinopril 40 mg tablet 40 mg PO DAILY colestipol 1 gram tablet 1 g PO DAILY Patient Comments: TAKE 1 TABLET BY MOUTH ONCE DAILY AT BEDTIME hydrocodone-acetaminophen 7.5-325 mg tablet 1 tab PO Q6H PRN (Reason: pain) tizanidine 2 mg capsule 4 mg PO Q12H Patient Comments: TAKE 1 CAPSULE BY MOUTH AT BEDTIME NEEDED ketoconazole 2 % cream 1 applic TOPICAL DAILY Forteo 20 mcg/dose (600mcg/2.4mL) pen injector 20 mcg subcut DAILY cholecalciferol (vitamin D3) 1,250 mcg (50,000 unit) capsule 1,250 mcg PO QWEEK Primary Care Provider: BROWN FREITAS Referrals: Arleen Hwang MD [Med Staff - Business Systems Advisor] - BROWN FREITAS NP-C [Primary Care Provider] - 1 Week Activity Restrictions/Additional Instructions: As discussed, for the next week please check your vital signs before you take your carvedilol. If your heart rate is less than 60, please hold this medication and make note of this. Take this journal to your next doctor's appointment with you so they can help you regulate your medications.
[2023-06-19 18:47] LABS: Absolute Lymphocyte Count 1.46 X10^3/uL (0.83-4.51); Absolute Neutrophil Count 2.7 X10^3/uL (2.0-7.7); Basophil# 0.02 X10^3/uL; Basophil% 0.4 % (0-1); Eosinophil# 0.13 X10^3/uL; Eosinophils% 2.6 % (0-5); Hematocrit 32.5 % (40-54); Hemoglobin 10.8 g/dL (13.0-16.5); Lymphocyte # 1.46 X10^3/ul (0.83-4.51); Lymphocyte % 28.7 % (19-41); Mean Corp Hgb Conc 33.2 g/dL (32-36); Mean Corpuscular Hgb 34.6 pg (27.0-32.0); Mean Corpuscular Volume 104.2 fL (80-94); Mean Platelet Vol. 7.9 fl (6.2-12.0); Monocyte# 0.74 X10^3/uL; Monocyte% 14.6 % (0-10); NRBC Flagged by Analyzer 0 % (0-5); Neutrophil # 2.71 X10^3/uL (2.7-7.7); Neutrophil % 53.3 % (47-70); Platelet Count 166 K/mm3 (150-450); RBC Distribution Width CV 12.8 % (11.6-14.6); RBC Distribution Width SD 48.2 fl (35.1-43.9); Red Blood Count 3.12 M/mm3 (4.6-6.2); White Blood Count 5.1 K/mm3 (4.4-11.0)
--- NOTE | 2023-06-19 18:53 | RAD_ITS ---
INDICATION: weakness EXAMINATION/TECHNIQUE: X-RAY - portable upright AP chest x-ray COMPARISON: 03/08/2023 FINDINGS: LINES/DEVICES: None. LUNGS: No consolidation, edema or effusion. No pneumothorax. MEDIASTINUM AND CARDIOVASCULAR STRUCTURES: Cardiac silhouette stable within upper normal limits. BONES AND SOFT TISSUES: No acute changes. Stable thoracic stabilization hardware. RAD/Chest 1 View (Portable) IMPRESSION: No radiographic evidence of acute cardiopulmonary disease. Electronically Signed: Jamison Torres MD at 19:38 EDT ,
[2023-06-19] MEDS: HYDROcodone Bitartrate/Apap 5/325 Tablet PO (19:03)
[2023-06-19 19:10] LABS: Anion Gap 9 (5-15); BUN 19 mg/dL (7-18); BUN/Creat Ratio 19.3 RATIO (10-20); Calcium,Total 9.3 mg/dL (8.5-10.1); Chloride 100 mmol/L (98-107); Creatinine, Serum 0.98 mg/dL (0.70-1.30); EST Glomerular Filtration Rate 81 mL/min (>60); Est Glom Filt Rate - Afr Amer 98 mL/min (>60); Estimated Creatinine Clearance 78.97 ml/min; Glucose 105 mg/dL (74-106); Potassium 3.7 mmol/L (3.5-5.1); Sodium Level 137 mmol/L (136-145); Thyroid Stim Hormone (TSH) 1.46 uIU/mL (0.358-3.74)
[2023-06-19 19:44] LABS: Bacteria 0 SEEN /hpf (None Seen); Mucous, Urine 0 SEEN /hpf (<or=2+); Red Blood Cells-Urine 0 SEEN /hpf (0-5)
[2023-06-19 19:51] VITALS: PULSE 45; RESP 21; O2SAT 97
[2023-06-19 19:56] LABS: Color, Urine Yellow (Yellow); Glucose, Dipstick Normal (Normal); Ketone-Dipstick Negative (Negative); Leukocyte Esterase-Dipstick 25 /ul (Negative); Nitrite-Dipstick Negative (Negative); Occult Blood-Urine Negative /ul (Negative); Protein-Dipstick 30 mg/dl (Negative); Urine Bilirubin Dipstick Negative (Negative); Urine Clarity Clear (Clear); Urine Urobilinogen Normal (Normal)
[2023-06-19 20:24] LABS: Hyaline Cast 10-25 SEEN /lpf (0-5); Squamous Epithelial Cells - UA 0-5 SEEN /hpf (0-5); White Blood Cells 0-5 SEEN /hpf (0-5)
[2023-06-19 21:06] VITALS: BP 122/73; PULSE 47; RESP 20; O2SAT 97
== END 2023-06-19 21:20 | disposition home or self-care (01) ==
PROVIDERS: Emergency Provider Emergency Medicine; PCP Nurse Practitioner; Visit Provider Emergency Medicine
DX: R53.1 Weakness (principal); I48.91 Unspecified atrial fibrillation; I48.92 Unspecified atrial flutter; R00.1 Bradycardia, unspecified; Z87.891 Personal history of nicotine dependence; I10 Essential (primary) hypertension; Z79.01 Long term (current) use of anticoagulants; Z79.899 Other long term (current) drug therapy; Z90.49 Acquired absence of other specified parts of digestive tract
CPT/HCPCS: 71045; 80048; 81001; 84443; 85025; 93005; 99285; A4216

== ENCOUNTER 2023-07-26 10:54 | Emergency (ER) | payer MEDICARE, SELFPAY ==
[2023-07-26 10:55] VITALS: BP 148/69; PULSE 56; RESP 18; TEMP 35.7; O2SAT 97
[2023-07-26 11:20] VITALS: BP 148/69; PULSE 56; RESP 18; TEMP 36.8; O2SAT 98
--- NOTE | 2023-07-26 11:21 | CT_ITS ---
STUDY: CT ABDOMEN AND PELVIS WITHOUT CONTRAST REASON FOR EXAM: Male, 68 years old. R flank pain RADIATION DOSAGE (If Supplied By Facility): CTDIvol = ( 23.95 ) mGy, DLP = ( 1274.64 ) mGycm TECHNIQUE: Transaxial images were obtained from the dome of the diaphragm to the symphysis pubis without oral contrast, and without intravenous contrast. Sagittal and coronal images were reconstructed. Individualized dose optimization techniques were used for this CT. COMPARISON: Comparison is made with prior study of January 14, 2023. FINDINGS: Stable increased linear markings at the lung bases suggestive scarring. Coronary artery calcification. Normal liver. There are surgical clips in the gallbladder fossa consistent with a prior cholecystectomy. Normal spleen. Normal pancreas. Normal bilateral adrenal glands. Normal right kidney. Normal left kidney. Normal visualized stomach. Normal small intestine. Scattered colonic diverticula are seen in the sigmoid colon as well as in the right hemicolon. There is non-visualization of the appendix. There is scattered atherosclerotic calcification of the abdominal aorta and its major visceral branches, without a demonstrated aneurysm. There is an IVC filter in place. There is borderline retroperitoneal lymphadenopathy with enlarged nodes no greater than 10mm in the short axis diameter. Normal urinary bladder. Small bilateral fat-containing inguinal hernias. A most complete collapse of the L3 vertebrae. Loss of height of the superior endplate of the L2 vertebrae. Prior screw and dianne fixation of the lower thoracic spine. CT/Abdomen/Pelvis without Cont IMPRESSION: No evidence of a ureteral obstruction. Progressive loss of height of the L3 and L2 vertebrae. Electronically Signed: Ayad Sexton MD at 12:41 EDT ,
[2023-07-26] MEDS: Morphine 4 MG/ML Syringe IV (11:37)
[2023-07-26] MEDS: Ondansetron 4 MG/2 ML Vial IV (11:37)
[2023-07-26 11:54] LABS: Absolute Lymphocyte Count 1.08 X10^3/uL (0.83-4.51); Absolute Neutrophil Count 4.1 X10^3/uL (2.0-7.7); Basophil# 0.02 X10^3/uL; Basophil% 0.3 % (0-1); Eosinophil# 0.13 X10^3/uL; Eosinophils% 2.1 % (0-5); Hematocrit 32.5 % (40-54); Hemoglobin 10.7 g/dL (13.0-16.5); Lymphocyte # 1.08 X10^3/ul (0.83-4.51); Lymphocyte % 17.8 % (19-41); Mean Corp Hgb Conc 32.9 g/dL (32-36); Mean Corpuscular Hgb 34.5 pg (27.0-32.0); Mean Corpuscular Volume 104.8 fL (80-94); Mean Platelet Vol. 8.5 fl (6.2-12.0); Monocyte# 0.72 X10^3/uL; Monocyte% 11.9 % (0-10); NRBC Flagged by Analyzer 0 % (0-5); Neutrophil # 4.09 X10^3/uL (2.7-7.7); Neutrophil % 67.4 % (47-70); Platelet Count 186 K/mm3 (150-450); RBC Distribution Width CV 12.9 % (11.6-14.6); RBC Distribution Width SD 49.6 fl (35.1-43.9); White Blood Count 6.1 K/mm3 (4.4-11.0)
[2023-07-26 12:04] LABS: Anion Gap 4 (5-15); BUN 15 mg/dL (7-18); BUN/Creat Ratio 21.8 RATIO (10-20); Calcium,Total 9.3 mg/dL (8.5-10.1); Chloride 103 mmol/L (98-107); Creatinine, Serum 0.69 mg/dL (0.70-1.30); EST Glomerular Filtration Rate 122 mL/min (>60); Est Glom Filt Rate - Afr Amer 148 mL/min (>60); Glucose 110 mg/dL (74-106); Sodium Level 139 mmol/L (136-145)
[2023-07-26 12:27] LABS: Bacteria 0 SEEN /hpf (None Seen); Mucous, Urine 0 SEEN /hpf (<or=2+); Red Blood Cells-Urine 0 SEEN /hpf (0-5); White Blood Cells 0 SEEN /hpf (0-5)
[2023-07-26 12:29] LABS: Color, Urine Yellow (Yellow); Glucose, Dipstick Normal (Normal); Ketone-Dipstick Negative (Negative); Leukocyte Esterase-Dipstick Negative /ul (Negative); Nitrite-Dipstick Negative (Negative); Occult Blood-Urine Negative /ul (Negative); Protein-Dipstick 15 mg/dl (Negative); Urine Bilirubin Dipstick Negative (Negative); Urine Clarity Clear (Clear); Urine Urobilinogen Normal (Normal)
[2023-07-26 12:37] LABS: Squamous Epithelial Cells - UA 0-5 SEEN /hpf (0-5)
[2023-07-26 13:00] VITALS: PULSE 84
[2023-07-26] MEDS: Oxycodone/Apap 5/325 Tablet PO (13:00)
--- NOTE | 2023-07-26 13:30 | ED.VIS.GI ---
HPI HPI - GI History of Present Illness Chief Complaint: Flank Pain Informant: patient Abdominal Pain/Flank Pain Onset: Yesterday Context: Gradual Onset Timing: Continuous Quality: Aching Location: Right Flank (more in back) Current Severity: Moderate Maximum Severity: Severe Worsened by: Movement Relieved by: Nothing Nausea/Vomiting/Emesis GI Symptom: Positive for Nausea; Negative for Vomiting Diarrhea/Melena/Hematochezia GI Symptom: Negative for Diarrhea, Melena (black but not tarry) or Hematochezia Associated Symptoms Associated Symptoms: Negative for Dysuria, Frequency, Hematuria or Urgency Narrative Narrative: Patient with several problems, he has chronic edema both of his legs, that has been worse. Yesterday started having pain in his right low back/flank that is a new and different pain than what he has experienced in his spine. He has compression fractures in his low back, he was scheduled for fusion surgery this month but it had to be postponed because he did not have the appropriate cardiac clearance yet. He had a prior fusion from fractures in his thoracic spine. He has osteopenia/osteoporosis. He has chronic pain in his low back as a result of these compression fractures, and it is significant. It is to the point where he is mostly in a wheelchair, he transitions and has a home health aide that helps him, but he does not walk and is mostly in the wheelchair from day-to-day, in the past week or 2, his edema both legs have been worse to the point where he has developed some blisters and 2 of them broke open within the past week and of been leaking clear fluid, his home health aide has been putting mupirocin on them with dressing changes, he denies any severe pains in his legs, they just feels sore from the edema and a little sore at the exposed skin where the blisters are broken open. He denies any fevers or chills. Denies any urinary symptoms. Black stool since he has been on iron, but not tarry and no abdominal pain or vomiting although he was little nauseated today. He was on Lasix as needed, but as of recently because of the increased edema he has started taking it daily. He took it this morning and accordingly he has urinated multiple times already this morning. [facility] Medical History Atrial flutter Cancer Essential hypertension Hx of pulmonary embolus Hypertension Obstructive sleep apnea FELA (obstructive sleep apnea) Psoriasis Home Medications amlodipine 10 mg tablet 10 mg PO QHS Blood pressure 10/14/19 [History Last Taken 10/17/20] escitalopram oxalate 20 mg tablet 20 mg PO DAILY Check with primary doctor 10/14/19 [History Last Taken 10/22/22] bupropion HCl 75 mg tablet 75 mg PO DAILY Depression 09/18/22 [History Last Taken Unknown] bethanechol chloride 25 mg tablet 25 mg PO TID 30 days #90 tabs 01/07/23 [Rx Last Taken Unknown] albuterol sulfate 90 mcg/actuation aerosol inhaler 2 puff inhalation Q6H sob 01/14/23 [History Last Taken Unknown] acetaminophen 325 mg tablet 650 mg (2 x 325 mg) PO Q6H PRN PRN Pain 1-10 Or Fever>100.7 #0 tabs 01/17/23 [Rx Last Taken Unknown] ferrous sulfate 325 mg (65 mg iron) tablet (FeroSul) 325 mg PO DAILY@1200 Check with primary doctor 03/08/23 [History Last Taken Unknown] fluticasone propionate 50 mcg/actuation nasal spray,suspension 2 spray NASAL DAILY Check with primary doctor 03/08/23 [History Last Taken Unknown] gabapentin 600 mg tablet 600 mg PO TID Check with primary doctor 03/08/23 [History Last Taken Unknown] lidocaine 5 % topical patch 1 patch topical 0800 Check with primary doctor 03/08/23 [History Last Taken Unknown] magnesium chloride 64 mg (magnesium chloride) tablet,delayed release (Mag 64) 250 mg PO DAILY Check with primary doctor 03/08/23 [History Last Taken Unknown] vit A 300 mcg-C 200 mg-E 27 mg-lutein 2 mg and minerals tablet (Healthy Eyes) 1 cap PO DAILYCM Check with primary doctor 03/08/23 [History Last Taken Unknown] apixaban 5 mg tablet (Eliquis) 5 mg PO BID 30 days #60 tabs 03/13/23 [Rx Last Taken Unknown] losartan 100 mg tablet 50 mg (1/2 x 100 mg) PO DAILY Check with primary doctor 30 days #0 tabs 03/13/23 [Rx Last Taken Unknown] sennosides 8.6 mg-docusate sodium 50 mg tablet (Stool Softener-Stimulant Laxative) 2 tab PO BID #0 tabs 03/13/23 [Rx Last Taken Unknown] cholecalciferol (vitamin D3) 1,250 mcg (50,000 unit) capsule 1,250 mcg PO QWEEK 06/19/23 [History Last Taken Unknown] colestipol 1 gram tablet 1 g PO DAILY 06/19/23 [History Last Taken Unknown] hydrocodone 7.5 mg-acetaminophen 325 mg tablet 1 tab PO Q6H PRN pain 06/19/23 [History Last Taken Unknown] ketoconazole 2 % topical cream 1 applic topical DAILY 06/19/23 [History Last Taken Unknown] lisinopril 40 mg tablet 40 mg PO QHS 06/19/23 [History Last Taken Unknown] teriparatide 20 mcg/dose (600 mcg/2.4 mL) subcutaneous pen injector (Forteo) 20 mcg subcut DAILY 06/19/23 [History Last Taken Unknown] tizanidine 2 mg capsule 4 mg PO Q12H 06/19/23 [History Last Taken Unknown] baclofen 10 mg tablet 10 mg PO TID PRN muscle spasm 07/26/23 [History Last Taken Unknown] carvedilol 25 mg tablet 25 mg PO BID Check with primary doctor 07/26/23 [History Last Taken Unknown] cyclobenzaprine 5 mg tablet 5 mg PO TID PRN muscle spasm 07/26/23 [History Last Taken Unknown] furosemide 20 mg tablet 20 mg PO DAILY PRN edema 07/26/23 [History Last Taken Unknown] potassium chloride 10 mEq tablet,extended release 10 meq PO DAILY PRN WITH LASIX 07/26/23 [History Last Taken Unknown] sildenafil 100 mg tablet 100 mg PO DAILY PRN SEE PCP 07/26/23 [History Last Taken Unknown] Allergy/AdvReac Type Severity Reaction Status Date / Time lorazepam Allergy Other Verified 07/26/23 10:55 Penicillins Allergy Itching Verified 07/26/23 10:55 poison ever extract Allergy Itching Verified 07/26/23 10:55 tizanidine [From Zanaflex] Allergy Other Verified 07/26/23 10:55 Family History Mother CVA (cerebral vascular accident) Father CAD (coronary artery disease) Hypertension Cancer Prostate Other Brain aneurysm Heart disease Prostate CA Surgical History History of carpal tunnel surgery History of herniorrhaphy Hx of appendectomy Hx of cholecystectomy Status post laminectomy Social History household members: spouse Smoking Status: Former smoker alcohol intake: current alcohol intake frequency: 3 or more drinks per day substance use type: does not use ROS ROS ED Constitutional Constitutional ED: Denies chills or fever(s) Eyes Eyes: Denies change in vision or diplopia ENT ENT ED: Denies rhinorrhea or sore throat Cardiovascular Cardiovascular: Reports leg edema; Denies chest pain or palpitations Respiratory/Chest Respiratory/Chest: Denies cough or dyspnea Gastrointestinal Gastrointestinal: Denies abdominal pain, diarrhea, nausea or vomiting Genitourinary Genitourinary ED: Denies dysuria or hematuria Musculoskeletal Musculoskeletal: Reports back pain; Denies neck pain Integumentary Reports other Details: Broken blisters on right leg see HPI ; Denies abscess or rash Neurologic Neurologic: Denies headache(s), paresthesias or weakness Psychiatric Psychiatric: Denies anxiety or suicidal thoughts EXAM Physical Exam Const Vital Signs: 07/26/23 10:55 07/26/23 11:04 07/26/23 11:20 Temperature 96.2 F L 98.2 F Temperature Source Temporal Oral Pulse Rate 56 L 56 L Respiratory Rate 18 18 Respiratory Effort Short of Breath Respiratory Pattern Normal Blood Pressure 148/69 H 148/69 H Blood Pressure Mean 95 95 Pulse Ox 97 98 Oxygen Delivery Method Nasal Cannula Nasal Cannula Oxygen Flow Rate (L/min) 3 3 Positive well nourished, well developed and obese General Appearance ED: well developed and NAD Nutritional Appearance: obese HEENT Reports moist mucous membranes normocephalic and atraumatic Eyes PERRL and EOMs intact bilaterally Neck full ROM and supple Resp normal respiratory effort and clear to auscultation bilaterally Cardio regular rate, regular rhythm and no murmurs GI non-tender and non-distended Auscultation: normoactive bowel sounds Palpation: soft Back/Spine General Back: CVA tenderness right (mild) and other FROM but w/ pain Extremity normal to inspection and full ROM General Extremety ED: Yes edema; Negative for pulses abnormal or tenderness General Extremity: edema bilateral lower extremity Details: moderate (Symmetric, with symmetric dark discoloration mid lower leg consistent with chronic stasis dermatitis); Negative for pulses abnormal Neuro oriented x3, CN's II-XII intact bilaterally and no sensory deficits noted Sensorium / Orientation: awake and alert Motor Exam: strength 5/5 throughout Psych mental status grossly normal and thought process normal Skin no rashes or lesions noted Skin Narrative: 2 broad-based superficial ruptured blisters right lower leg, 1 on the arteaga 1 a little distal on peroneal, there is some evidence of scabbing/healing, the exposed dermis itself is mildly tender, there is mild surrounding erythema consistent with inflammation/healing without signs of obvious cellulitis or lymphangitis/abscess. No necrotic tissue. MDM MDM MDM Narrative Medical decision making narrative: Kidney stone in the differential diagnosis here, I performed a CT of the abdomen/pelvis, basically as negative for any acute. My interpretation of the CT agrees with that of the radiologist. With regards to the black stools, his hemoglobin is low but higher than it normally is for him, and he does not have a significant BUN elevation to suggest an acute upper GI bleed. Therefore this is more likely due to his iron supplementation, he is on ferrous sulfate 325 daily. Urinalysis shows no signs of acute infection. There is no rash on his back in the area of infection to suggest zoster. Given all of this, my suspicion is that this is musculoskeletal, patient is probably manipulating his maneuvers due to his spine pain, he agrees with that hypothesis. He was given pain medication here, and he is amenable to discharge home close outpatient follow-up. With regards to the ulcerations on his leg, I see no signs of acute infection. His aide is doing the right thing by dressing changes frequently with mupirocin in between each change. We discussed signs and symptoms of infection and reasons to return. I agree with continuing doing wraps to the legs and the Lasix and following up with his doctor. Lab Data Attestation: I reviewed the patient's lab results. Labs: Laboratory Results - last 24 hr 07/26/23 07/26/23 11:39 12:17 WBC 6.1 RBC 3.10 L Hgb 10.7 L Hct 32.5 L MCV 104.8 H MCH 34.5 H MCHC 32.9 RDW Std Deviation 49.6 H RDW Coeff of Justine 12.9 Plt Count 186 MPV 8.5 Immature Gran % (Auto) 0.500 Neut % (Auto) 67.4 Lymph % (Auto) 17.8 L Schleicher % (Auto) 11.9 H Eos % (Auto) 2.1 Baso % (Auto) 0.3 Absolute Neuts (auto) 4.1 Absolute Lymphs (auto) 1.08 Nucleated RBC % 0 Sodium 139 Potassium 4.0 Chloride 103 Carbon Dioxide 32.0 Anion Gap 4 L BUN 15 Creatinine 0.69 L Est GFR (MDRD) Af Amer 148 Est GFR (MDRD) Non-Af 122 BUN/Creatinine Ratio 21.8 H Glucose 110 H Calcium 9.3 Urine Color Yellow Urine Clarity Clear Urine pH 7.0 Ur Specific Bradley 1.010 Urine Protein 15 H Urine Glucose (UA) Normal Urine Ketones Negative Urine Occult Blood Negative Urine Nitrite Negative Urine Bilirubin Negative Urine Urobilinogen Normal Ur Leukocyte Esterase Negative Urine RBC 0 SEEN Urine WBC 0 SEEN Ur Squamous Epith Cells 0-5 SEEN Urine Bacteria 0 SEEN Urine Mucus 0 SEEN Radiography Diagnostic Testing: Clinical Impression(s) from Imaging Studies Abdomen/Pelvis CT 07/26/23 11:21 IMPRESSION: No evidence of a ureteral obstruction. Progressive loss of height of the L3 and L2 vertebrae. Electronically Signed: Ayad Sexton MD at 12:41 EDT , Discharge Plan Triage Chief Complaint: Flank Pain Other Complaint: Edema Wound ED Provider: Buck Diaz Dx/Rx/DC Orders Clinical Impression: Bilateral edema of lower extremity, Musculoskeletal back pain Instructions: ED Back Pain (Acute or Chronic), ED Peripheral Edema, Bilateral Prescriptions: No Action amlodipine 10 MG tablet 10 mg PO QHS escitalopram oxalate 20 MG tablet 20 mg PO DAILY bupropion HCl 75 mg tablet 75 mg PO DAILY Patient Comments: START WITH TAKING 1 TABLET DAILY AND INCREASE TO 1 TABLET TWICE DAILY IF TOLERATED bethanechol chloride 25 mg Tablet 25 mg PO TID 30 Days Qty: 90 0RF Hold Instructions: Pt has been DC'd albuterol sulfate 90 mcg/actuation HFA aerosol inhaler 2 puff INHALATION Q6H Patient Comments: INHALE 2 PUFFS BY MOUTH EVERY 6 HOURS NEEDED FOR WHEEZING OR SHORTNESS OF BREATH acetaminophen 325 mg Tablet 650 mg PO Q6H PRN PRN (Reason: Pain 1-10 Or Fever>100.7) Qty: 0 0RF gabapentin 600 mg tablet 600 mg PO TID ferrous sulfate [FeroSul] 325 mg (65 mg iron) tablet 325 mg PO DAILY@1200 lidocaine 5 % adhesive patch,medicated 1 patch topical 0800 fluticasone propionate 50 mcg/actuation spray,suspension 2 spray NASAL DAILY Hold Instructions: Pt has been DC'd Healthy Eyes 300 mcg-200 mg-27 mg-2 mg tablet 1 cap PO DAILYCM Mag 64 64 mg tablet,delayed release (DR/EC) 250 mg PO DAILY sennosides-docusate sodium [Stool Softener-Stimulant Laxat] 8.6-50 mg Tablet 2 tab PO BID Qty: 0 0RF Rx Instructions: Hold if more than 1 bowel movement per day Eliquis 5 mg Tablet 5 mg PO BID 30 Days Qty: 60 2RF losartan 100 mg tablet 50 mg PO DAILY 30 Days Qty: 0 0RF Patient Comments: TAKE 1 TABLET BY MOUTH EVERY DAY lisinopril 40 mg tablet 40 mg PO QHS colestipol 1 gram tablet 1 g PO DAILY Patient Comments: TAKE 1 TABLET BY MOUTH ONCE DAILY AT BEDTIME hydrocodone-acetaminophen 7.5-325 mg tablet 1 tab PO Q6H PRN (Reason: pain) tizanidine 2 mg capsule 4 mg PO Q12H Hold Instructions: Pt has been DC'd Patient Comments: TAKE 1 CAPSULE BY MOUTH AT BEDTIME NEEDED ketoconazole 2 % cream 1 applic TOPICAL DAILY Forteo 20 mcg/dose (600mcg/2.4mL) pen injector 20 mcg subcut DAILY cholecalciferol (vitamin D3) 1,250 mcg (50,000 unit) capsule 1,250 mcg PO QWEEK baclofen 10 mg tablet 10 mg PO TID PRN (Reason: muscle spasm) furosemide 20 mg tablet 20 mg PO DAILY PRN (Reason: edema) potassium chloride 10 mEq tablet extended release 10 meq PO DAILY PRN (Reason: WITH LASIX) cyclobenzaprine 5 mg tablet 5 mg PO TID PRN (Reason: muscle spasm) sildenafil 100 mg tablet 100 mg PO DAILY PRN (Reason: SEE PCP) Rx Instructions: administer 30 minutes to 4 hours before activity carvedilol 25 mg tablet 25 mg PO BID Patient Comments: TAKE 1 TABLET BY MOUTH TWICE A DAY WITH MEALS Rx Instructions: Hold for heart less than 60 or systolic blood pressure less than 100 mmHg. Primary Care Provider: BROWN FREITAS Referrals: [facility] [Primary Care Provider] - (and/or other appts as scheduled) Disposition Disposition: Home, Self Care
[2023-07-26 14:01] VITALS: PULSE 80; RESP 22; TEMP 36.6
== END 2023-07-26 14:02 | disposition home or self-care (01) ==
PROVIDERS: Emergency Provider Emergency Medicine; PCP Nurse Practitioner; Visit Provider Emergency Medicine
DX: R60.0 Localized edema (principal); Z87.891 Personal history of nicotine dependence; I10 Essential (primary) hypertension; M79.18 Myalgia, other site; Z79.899 Other long term (current) drug therapy; Z85.9 Personal history of malignant neoplasm, unspecified; Z86.711 Personal history of pulmonary embolism; Z79.01 Long term (current) use of anticoagulants; Z90.49 Acquired absence of other specified parts of digestive tract
CPT/HCPCS: 74176; 80048; 81001; 85025; 96374; 96375; 99284; A4216; J2405

== ENCOUNTER 2024-05-31 21:37 | Emergency (ER) | payer MEDICARE, SELFPAY ==
[2024-05-31 21:37] VITALS: BP 159/109; PULSE 92; RESP 20; TEMP 36.4; O2SAT 100
--- NOTE | 2024-05-31 22:08 | CT_ITS ---
INDICATION: Pain diffuse, worst LLQ / L flank EXAMINATION: CT ABDOMEN AND PELVIS WITHOUT CONTRAST - CT Abdomen And Pelvis W/O Contrast Injection TECHNIQUE: Helically acquired images were obtained of the abdomen and pelvis without oral or IV contrast. A radiation dose optimization technique was used for this scan. IV Contrast dosage and agent: None. Oral contrast: None. RADIATION DOSAGE (If Supplied By Facility): CTDIvol = ( 28.54 ) mGy, DLP = ( 1344.20 ) mGycm COMPARISON: Prior study dated: 07/26/2023 FINDINGS: LOWER CHEST: Bibasilar atelectasis. Pleural thickening. Coronary artery calcifications are seen. No cardiomegaly or pericardial effusion. LIVER: The liver is normal in size, shape, and attenuation. No focal mass. GALLBLADDER AND BILIARY TREE: Cholecystectomy. No intra- or extrahepatic biliary ductal dilation. PANCREAS: No focal cystic or solid mass. SPLEEN: Normal size without focal cystic or solid mass. ADRENAL GLANDS: No nodules. KIDNEYS AND URETERS: Normal renal size and position. No hydronephrosis or nephrolithiasis. Simple cyst at the upper pole of the left kidney. No specific follow-up recommended. PERITONEUM: No ascites or free air. No other fluid collection. BOWEL: The stomach is unremarkable. Normal caliber small bowel. No obstruction. Colonic diverticulosis present. Mild inflammation adjacent to the proximal sigmoid colon. Appendix likely absent. LYMPH NODES: No enlarged mesenteric or retroperitoneal lymph nodes. VESSELS: Aorta is non-dilated. Moderate atherosclerotic calcifications. IVC filter noted. URINARY BLADDER: Unremarkable. REPRODUCTIVE ORGANS: No pelvic masses. ABDOMINAL WALL: No discrete abdominal or pelvic wall hernia. BONES: Diffuse osteopenia. Posterior hardware in place from L1 through S1. Compression deformities are seen at the L2 and L3 levels, similar to prior. CT/Abdomen/Pelvis without Cont IMPRESSION: Colonic diverticulosis with mild inflammation at the proximal sigmoid colon, consistent with diverticulitis. Chronic compression deformities of the lumbar spine. Osteopenia. IVC filter present. Recommend assessment if there is a management plan in place for the filter. If there is no plan in place, suggest referral to interventional clinician on a nonemergent basis for evaluation. Electronically Signed: Rickey Lan MD at 23:50 EDT ,
--- NOTE | 2024-05-31 22:09 | ED.VIS.GI ---
HPI HPI - GI History of Present Illness Chief Complaint: Nausea/Vomiting Informant: patient and spouse/S.O. Narrative Narrative: Patient presents with 1 to 2 weeks of not feeling well and having nausea, dry heaving, some diarrhea, and although was not one of his primary complaints when asked he admits he has been having abdominal pain that is mostly in the left lower quadrant. He states also my kidneys hurt. He states this usually occurs after dialysis but the pain has been worse, and he has been extremely malaised and weak. He states he has been continue to go to dialysis, his last 1 was yesterday on Saturday, states he told his knitter machine about it while there they offered to send him to the ER, he declined, but he has had no other treatments or diagnostics for any of this. Presents by EMS tonight because he is feeling poorly. He denies any thoracic symptoms, headache, focal neurologic deficits, changes in edema in his legs. He states he has been below his dry rate multiple dialysis runs, he has lost 10 or 20 pounds in the last month. He feels extremely nauseated with dry heaves every time he either drinks water or takes his medications that he has been skipping them often because it makes him dry heave and vomit. [facility] Medical History Essential hypertension Atrial flutter Hx of pulmonary embolus Obstructive sleep apnea FELA (obstructive sleep apnea) Hypertension Cancer Psoriasis Home Medications ?Medication ?Instructions ?Recorded ?Last Taken ?Type amlodipine 10 mg tablet 10 mg PO QHS Blood pressure 10/14/19 10/17/20 History escitalopram oxalate 20 mg tablet 20 mg PO DAILY Check with primary 10/14/19 10/22/22 History doctor bupropion HCl 75 mg tablet 75 mg PO DAILY Depression 09/18/22 Unknown History bethanechol chloride 25 mg tablet 25 mg PO TID 30 days #90 tabs 01/07/23 Unknown Rx albuterol sulfate 90 mcg/actuation 2 puff inhalation Q6H sob 01/14/23 Unknown History aerosol inhaler acetaminophen 325 mg tablet 650 mg (2 x 325 mg) PO Q6H PRN PRN 01/17/23 Unknown Rx Pain 1-10 Or Fever>100.7 #0 tabs ferrous sulfate 325 mg (65 mg 325 mg PO DAILY@1200 Check with 03/08/23 Unknown History iron) tablet (FeroSul) primary doctor fluticasone propionate 50 2 spray NASAL DAILY Check with 03/08/23 Unknown History mcg/actuation nasal primary doctor spray,suspension gabapentin 600 mg tablet 600 mg PO TID Check with primary 03/08/23 Unknown History doctor lidocaine 5 % topical patch 1 patch topical 0800 Check with 03/08/23 Unknown History primary doctor magnesium chloride 64 mg 250 mg PO DAILY Check with primary 03/08/23 Unknown History (magnesium chloride) doctor tablet,delayed release (Mag 64) vit A 300 mcg-C 200 mg-E 27 1 cap PO DAILYCM Check with 03/08/23 Unknown History mg-lutein 2 mg and minerals tablet primary doctor (Healthy Eyes) apixaban 5 mg tablet (Eliquis) 5 mg PO BID 30 days #60 tabs 03/13/23 Unknown Rx losartan 100 mg tablet 50 mg (1/2 x 100 mg) PO DAILY 03/13/23 Unknown Rx Check with primary doctor 30 days #0 tabs sennosides 8.6 mg-docusate sodium 2 tab PO BID #0 tabs 03/13/23 Unknown Rx 50 mg tablet (Stool Softener-Stimulant Laxative) cholecalciferol (vitamin D3) 1,250 1,250 mcg PO QWEEK 06/19/23 Unknown History mcg (50,000 unit) capsule colestipol 1 gram tablet 1 g PO DAILY 06/19/23 Unknown History hydrocodone 7.5 mg-acetaminophen 1 tab PO Q6H PRN pain 06/19/23 Unknown History 325 mg tablet ketoconazole 2 % topical cream 1 applic topical DAILY 06/19/23 Unknown History lisinopril 40 mg tablet 40 mg PO QHS 06/19/23 Unknown History teriparatide 20 mcg/dose (600 20 mcg subcut DAILY 06/19/23 Unknown History mcg/2.4 mL) subcutaneous pen injector (Forteo) baclofen 10 mg tablet 10 mg PO TID PRN muscle spasm 07/26/23 Unknown History carvedilol 25 mg tablet 25 mg PO BID Check with primary 07/26/23 Unknown History doctor cyclobenzaprine 5 mg tablet 5 mg PO TID PRN muscle spasm 07/26/23 Unknown History furosemide 20 mg tablet 20 mg PO DAILY PRN edema 07/26/23 Unknown History potassium chloride 10 mEq 10 meq PO DAILY PRN WITH LASIX 07/26/23 Unknown History tablet,extended release sildenafil 100 mg tablet 100 mg PO DAILY PRN SEE PCP 07/26/23 Unknown History cefuroxime axetil 500 mg tablet 500 mg PO BID #20 tabs 06/01/24 Unknown Rx metronidazole 500 mg tablet 500 mg PO BID #20 tabs 06/01/24 Unknown Rx ondansetron 8 mg disintegrating 8 mg PO Q8H PRN nausea and 06/01/24 Unknown Rx tablet vomiting #20 tabs Allergy/AdvReac Type Severity Reaction Status Date / Time lorazepam Allergy Other Verified 05/31/24 21:38 Penicillins Allergy Itching Verified 05/31/24 21:38 poison ever extract Allergy Itching Verified 05/31/24 21:38 Family History Mother CVA (cerebral vascular accident) Father CAD (coronary artery disease) Hypertension Cancer Prostate Other Brain aneurysm Heart disease Prostate CA Surgical History Status post laminectomy History of carpal tunnel surgery History of herniorrhaphy Hx of cholecystectomy Hx of appendectomy Social History household members: spouse Smoking Status: Former smoker alcohol intake: current alcohol intake frequency: 3 or more drinks per day substance use type: does not use ROS ROS ED Constitutional Constitutional ED: Reports fatigue, malaise and weakness; Denies body ache(s), chills or fever(s) Eyes Eyes: Denies change in vision or diplopia ENT ENT ED: Denies rhinorrhea or sore throat Cardiovascular Cardiovascular: Denies chest pain or palpitations Respiratory/Chest Respiratory/Chest: Reports other Details: Wears oxygen at home for some type of chronic lung disease ; Denies cough or dyspnea Gastrointestinal Gastrointestinal: Reports abdominal pain, diarrhea, nausea and vomiting; Denies hematemesis, hematochezia or melena Genitourinary Genitourinary ED: Reports other Details: Still urinates daily, urine has been darker than normal ; Denies dysuria or hematuria Musculoskeletal Musculoskeletal: Reports back pain; Denies neck pain Integumentary Denies abscess or rash Neurologic Neurologic: Denies headache(s), paresthesias or weakness Psychiatric Psychiatric: Denies suicidal thoughts EXAM Physical Exam Const Vital Signs: 05/31/24 21:37 05/31/24 23:43 06/01/24 01:00 Temperature 97.5 F L Temperature Source Temporal Pulse Rate 92 74 81 Respiratory Rate 20 H 18 16 Blood Pressure 159/109 H 159/97 H 156/93 H Blood Pressure Mean 125 117 114 Pulse Ox 100 99 100 Oxygen Delivery Method Nasal Cannula Room Air Oxygen Flow Rate (L/min) 3 06/01/24 02:22 Temperature 98.1 F Temperature Source Pulse Rate 82 Respiratory Rate 16 Blood Pressure 164/114 H Blood Pressure Mean 130 Pulse Ox 99 Oxygen Delivery Method Oxygen Flow Rate (L/min) Positive well nourished and well developed General Appearance ED: well developed and NAD HEENT Reports moist mucous membranes normocephalic and atraumatic Eyes PERRL and EOMs intact bilaterally Neck full ROM and supple Resp normal respiratory effort and clear to auscultation bilaterally Cardio regular rate and regular rhythm Cardio Narrative: Frequent irregularity but for the most part rhythm seems regular. Soft systolic murmur LLSB. GI non-distended GI Narrative: Moderate to severe tenderness in the left lower quadrant with some involuntary guarding. No rebound tenderness. Mild tenderness versus nausea across top of abdomen, patient starts dry heaving during very light palpation in the epigastrium and left upper quadrant. Auscultation: hypoactive bowel sounds Palpation: soft Back/Spine Back/Spine Narrative: Well-healed surgical scar midline lumbar without signs of infection or tenderness General Back: CVA tenderness left and other FROM Extremity normal to inspection Extremity Narrative: Changes of chronic stasis dermatitis both lower legs symmetric nontender General Extremety ED: Yes edema; Negative for pulses abnormal or tenderness General Extremity: edema bilateral lower extremity Details: mild; Negative for pulses abnormal Neuro oriented x3, CN's II-XII intact bilaterally and no sensory deficits noted Sensorium / Orientation: awake and alert Motor Exam: general weakness Psych mental status grossly normal and thought process normal Skin no rashes or lesions noted and no wounds MDM MDM MDM Narrative Medical decision making narrative: Patient was treated with IV fluids, Zofran, morphine. He is feeling better on reevaluation asking for another dose of morphine later which was given, but his nausea is better. Given his abdominal pain and tenderness, sent him for a CT had a concern for possible diverticulitis. CT abdomen/pelvis images I reviewed, I reviewed the report as well which I agree with, is consistent with uncomplicated sigmoid diverticulitis. He does not have a significant leukocytosis. His creatinine is but he is a dialysis patient so this is relatively irrelevant, he has been compliant with dialysis and he does not have any acute metabolic disturbances other than maybe being a little dry clinically. His alkaline phosphatase is a little elevated consistent with vomiting, the rest of his liver enzymes are within normal limits and his lipase is negative. Urinalysis shows no acute infection and CT shows no suspicion for pyelonephritis or obstructive uropathy. Therefore, as long as he is able to keep fluids down, and he is feeling well enough to go home which he says he is, he can be managed as an outpatient with oral antibiotics and antiemetics. He is comfortable with that overall plan. He is allergic to penicillin so gave him doses of IV rocephin and Flagyl to begin with here. Apparently he takes tizanidine, so Cipro is contraindicated, so that is why we went with cephalosporins, however at discharge prescribed him Flagyl and cefuroxime, it appears that he may not be taking the tizanidine anymore. Regardless I advised that he discontinue it if he still does take it. Lab Data Attestation: I reviewed the patient's lab results. Labs: Laboratory Results - last 24 hr 05/31/24 05/31/24 22:50 23:05 WBC 8.2 RBC 3.31 L Hgb 11.3 L Hct 35.0 L MCV 105.7 H MCH 34.1 H MCHC 32.3 RDW Std Deviation 57.5 H RDW Coeff of Justine 14.6 Plt Count 133 L MPV 8.6 Immature Gran % (Auto) 0.400 Neut % (Auto) 81.0 H Lymph % (Auto) 8.0 L [place] % (Auto) 10.4 H Eos % (Auto) 0.1 Baso % (Auto) 0.1 Absolute Neuts (auto) 6.7 Absolute Lymphs (auto) 0.66 L Nucleated RBC % 0 Sodium 141 Potassium 3.4 L Chloride 101 Carbon Dioxide 32.0 Anion Gap 8 BUN 10 Creatinine 2.48 H Est GFR (MDRD) Af Amer 34 L Est GFR (MDRD) Non-Af 28 L BUN/Creatinine Ratio 4.0 L Glucose 113 H Calcium 9.7 Total Bilirubin 1.00 AST 12 L ALT < 6 L Alkaline Phosphatase 168 H Total Protein 6.8 Albumin 3.5 Globulin 3.3 Albumin/Globulin Ratio 1.1 Lipase 10 L Urine Color Yellow Urine Clarity Sl Cldy Urine pH 8.0 Ur Specific [place] 1.010 Urine Protein 30 H Urine Glucose (UA) Normal Urine Ketones 5 H Urine Occult Blood Negative Urine Nitrite Negative Urine Bilirubin Negative Urine Urobilinogen Normal Ur Leukocyte Esterase Negative Urine RBC 0 SEEN Urine WBC 0 SEEN Ur Squamous Epith Cells 0-5 SEEN Urine Bacteria 0 SEEN Urine Mucus 0 SEEN Radiography Diagnostic Testing: Clinical Impression(s) from Imaging Studies Abdomen/Pelvis CT 05/31/24 22:08 IMPRESSION: Colonic diverticulosis with mild inflammation at the proximal sigmoid colon, consistent with diverticulitis. Chronic compression deformities of the lumbar spine. Osteopenia. IVC filter present. Recommend assessment if there is a management plan in place for the filter. If there is no plan in place, suggest referral to interventional clinician on a nonemergent basis for evaluation. Electronically Signed: Rickey Lan MD at 23:50 EDT Reading Location ID and State: [facility] Tel , Service support , Discharge Plan Triage Chief Complaint: Nausea/Vomiting ED Provider: Buck Diaz Dx/Rx/DC Orders Clinical Impression: Diverticulitis large intestine, Nausea vomiting and diarrhea, Mild dehydration, ESRD on dialysis Instructions: Diverticulitis Dc Prescriptions: New metronidazole 500 mg tablet 500 mg PO BID Qty: 20 0RF ondansetron 8 mg tablet,disintegrating 8 mg PO Q8H PRN (Reason: nausea and vomiting) Qty: 20 0RF cefuroxime axetil 500 mg tablet 500 mg PO BID Qty: 20 0RF Continued amlodipine 10 MG tablet 10 mg PO QHS escitalopram oxalate 20 MG tablet 20 mg PO DAILY bupropion HCl 75 mg tablet 75 mg PO DAILY Patient Comments: START WITH TAKING 1 TABLET DAILY AND INCREASE TO 1 TABLET TWICE DAILY IF TOLERATED bethanechol chloride 25 mg Tablet 25 mg PO TID 30 Days Qty: 90 0RF albuterol sulfate 90 mcg/actuation HFA aerosol inhaler 2 puff INHALATION Q6H Patient Comments: INHALE 2 PUFFS BY MOUTH EVERY 6 HOURS NEEDED FOR WHEEZING OR SHORTNESS OF BREATH acetaminophen 325 mg Tablet 650 mg PO Q6H PRN PRN (Reason: Pain 1-10 Or Fever>100.7) Qty: 0 0RF gabapentin 600 mg tablet 600 mg PO TID ferrous sulfate [FeroSul] 325 mg (65 mg iron) tablet 325 mg PO DAILY@1200 lidocaine 5 % adhesive patch,medicated 1 patch topical 0800 fluticasone propionate 50 mcg/actuation spray,suspension 2 spray NASAL DAILY Healthy Eyes 300 mcg-200 mg-27 mg-2 mg tablet 1 cap PO DAILYCM Mag 64 64 mg tablet,delayed release (DR/EC) 250 mg PO DAILY sennosides-docusate sodium [Stool Softener-Stimulant Laxat] 8.6-50 mg Tablet 2 tab PO BID Qty: 0 0RF Rx Instructions: Hold if more than 1 bowel movement per day Eliquis 5 mg Tablet 5 mg PO BID 30 Days Qty: 60 2RF losartan 100 mg tablet 50 mg PO DAILY 30 Days Qty: 0 0RF Patient Comments: TAKE 1 TABLET BY MOUTH EVERY DAY lisinopril 40 mg tablet 40 mg PO QHS colestipol 1 gram tablet 1 g PO DAILY Patient Comments: TAKE 1 TABLET BY MOUTH ONCE DAILY AT BEDTIME hydrocodone-acetaminophen 7.5-325 mg tablet 1 tab PO Q6H PRN (Reason: pain) ketoconazole 2 % cream 1 applic TOPICAL DAILY Forteo 20 mcg/dose (600mcg/2.4mL) pen injector 20 mcg subcut DAILY cholecalciferol (vitamin D3) 1,250 mcg (50,000 unit) capsule 1,250 mcg PO QWEEK baclofen 10 mg tablet 10 mg PO TID PRN (Reason: muscle spasm) furosemide 20 mg tablet 20 mg PO DAILY PRN (Reason: edema) potassium chloride 10 mEq tablet extended release 10 meq PO DAILY PRN (Reason: WITH LASIX) cyclobenzaprine 5 mg tablet 5 mg PO TID PRN (Reason: muscle spasm) sildenafil 100 mg tablet 100 mg PO DAILY PRN (Reason: SEE PCP) Rx Instructions: administer 30 minutes to 4 hours before activity carvedilol 25 mg tablet 25 mg PO BID Patient Comments: TAKE 1 TABLET BY MOUTH TWICE A DAY WITH MEALS Rx Instructions: Hold for heart less than 60 or systolic blood pressure less than 100 mmHg. Discontinued tizanidine 2 mg capsule 4 mg PO Q12H Patient Comments: TAKE 1 CAPSULE BY MOUTH AT BEDTIME NEEDED Primary Care Provider: Arleen Hwang Referrals: Arleen Hwang MD [Primary Care Provider] - 3-5 Days () Print Language: [place] Disposition Disposition: Home, Self Care Discharge Date/Time: 06/01/24 03:12
[2024-05-31 22:59] LABS: Bacteria 0 SEEN /hpf (None Seen); Mucous, Urine 0 SEEN /hpf (<or=2+); Red Blood Cells-Urine 0 SEEN /hpf (0-5); White Blood Cells 0 SEEN /hpf (0-5)
[2024-05-31 23:18] LABS: Absolute Lymphocyte Count 0.66 X10^3/uL (0.83-4.51); Absolute Neutrophil Count 6.7 X10^3/uL (2.0-7.7); Basophil# 0.01 X10^3/uL; Basophil% 0.1 % (0-1); Eosinophil# 0.01 X10^3/uL; Eosinophils% 0.1 % (0-5); Hemoglobin 11.3 g/dL (13.0-16.5); Lymphocyte # 0.66 X10^3/ul (0.83-4.51); Mean Corp Hgb Conc 32.3 g/dL (32-36); Mean Corpuscular Hgb 34.1 pg (27.0-32.0); Mean Corpuscular Volume 105.7 fL (80-94); Mean Platelet Vol. 8.6 fl (6.2-12.0); Monocyte# 0.85 X10^3/uL; Monocyte% 10.4 % (0-10); NRBC Flagged by Analyzer 0 % (0-5); Neutrophil # 6.65 X10^3/uL (2.7-7.7); Platelet Count 133 K/mm3 (150-450); RBC Distribution Width CV 14.6 % (11.6-14.6); RBC Distribution Width SD 57.5 fl (35.1-43.9); Red Blood Count 3.31 M/mm3 (4.6-6.2); White Blood Count 8.2 K/mm3 (4.4-11.0)
[2024-05-31] MEDS: Ondansetron 4 MG/2 ML Vial IV (23:24)
[2024-05-31] MEDS: Morphine 4 MG/ML Syringe IV (23:24)
[2024-05-31] MEDS: 0.9% Normal Saline (1000mL) 1,000 ML 999 ML IV (23:24)
[2024-05-31 23:32] LABS: Glucose, Dipstick Normal (Normal); Ketone-Dipstick 5 mg/dl (Negative); Leukocyte Esterase-Dipstick Negative /ul (Negative); Nitrite-Dipstick Negative (Negative); Occult Blood-Urine Negative /ul (Negative); Protein-Dipstick 30 mg/dl (Negative); Urine Bilirubin Dipstick Negative (Negative); Urine Urobilinogen Normal (Normal)
[2024-05-31 23:33] LABS: Color, Urine Yellow (Yellow); Urine Clarity Sl Cldy (Clear)
[2024-05-31 23:35] LABS: ALB/GLOB Ratio 1.1 RATIO (0.9-2.4); AST(SGOT) 12 U/L (15-37); Alanine Aminotransfer ALT/SGPT < 6 U/L (16-61); Albumin, Serum 3.5 g/dL (3.2-5.0); Alkaline Phosphatase 168 U/L (45-117); Anion Gap 8 (5-15); BUN 10 mg/dL (7-18); Calcium,Total 9.7 mg/dL (8.5-10.1); Chloride 101 mmol/L (98-107); Creatinine, Serum 2.48 mg/dL (0.70-1.30); EST Glomerular Filtration Rate 28 mL/min (>60); Est Glom Filt Rate - Afr Amer 34 mL/min (>60); Globulin 3.3 g/dL (2.2-4.2); Glucose 113 mg/dL (74-106); Lipase 10 U/L (13-75); Potassium 3.4 mmol/L (3.5-5.1); Protein, Total 6.8 g/dL (6.4-8.2); Sodium Level 141 mmol/L (136-145)
[2024-05-31 23:43] VITALS: BP 159/97; PULSE 74; RESP 18; O2SAT 99
[2024-05-31 23:58] LABS: Squamous Epithelial Cells - UA 0-5 SEEN /hpf (0-5)
[2024-06-01 01:00] VITALS: BP 156/93; PULSE 81; RESP 16; O2SAT 100
[2024-06-01] MEDS: Ceftriaxone 1 GM/50 ML BAG IV (01:22)
[2024-06-01] MEDS: metroNIDAZOLE 500 MG/100 ML BAG 100 MG IV (01:44)
[2024-06-01 02:22] VITALS: BP 164/114; PULSE 82; RESP 16; TEMP 36.7; O2SAT 99
[2024-06-01] MEDS: Morphine 4 MG/ML Syringe IV (02:28)
== END 2024-06-01 03:12 | disposition home or self-care (01) ==
PROVIDERS: Emergency Provider Emergency Medicine; PCP Internal Medicine; Visit Provider Emergency Medicine
DX: K57.32 Diverticulitis of large intestine without perforation or abscess without bleeding (principal); N18.6 End stage renal disease; I12.0 Hypertensive chronic kidney disease with stage 5 chronic kidney disease or end stage renal disease; E86.0 Dehydration; G47.33 Obstructive sleep apnea (adult) (pediatric); Z88.0 Allergy status to penicillin; Z99.2 Dependence on renal dialysis; Z79.01 Long term (current) use of anticoagulants; Z79.899 Other long term (current) drug therapy; Z87.891 Personal history of nicotine dependence
CPT/HCPCS: 74176; 80053; 81001; 83690; 85025; 96361; 96365; 96368; 96375; 99283; J7030; J7050; A4216; J0744; J2405

== ENCOUNTER 2024-07-13 10:42 | Inpatient (IN) | payer MEDICARE, SELFPAY ==
[2024-07-13] VITALS (27 sets, daily range): BP systolic 100–178; BP diastolic 54–82; PULSE 59–98; RESP 12–26; TEMP 36.1–36.6; O2SAT 90–100; BMI 34.7; BMI 28.7
--- NOTE | 2024-07-13 11:14 | EX.ED.CRITCA ---
HPI History of Present Illness Chief Complaint: Shortness of Breath Detail of Chief Complaint: Acute shortness of breath with chest pressure Informant: patient and EMS Onset/Context/Timing Onset: Today Context: Sudden Onset Timing: Continuous Quality: Pressure Location: Central chest Current Severity: Moderate Maximum Severity: Moderate Worsened by: Shortness of breath worse when he is supine and any activity Relieved by: Nothing Associated Symptoms Associated Symptoms: abdominal pain, chest pain (Central pressure sensation), chills, cough (Coughs once a day and states he brings up colored sputum.), fever, vomiting, diarrhea, palpitations and suicidal thoughts Narrative Narrative: Patient is a 69-year-old male. He has history of respiratory failure, on hemodialysis Saturday, Saturday (he has not been compliant with his diet) VTE on Eliquis, hypertension and failure to thrive. Patient arrived by EMS. Patient is in respiratory distress. Patient has paradoxical breathing. He is mottled. He is saturation 98% on 4 L. He is only able to say 1 or 2 words before gasping for breath. He denies fever or chills. He denies runny nose congestion earache. He does endorse orthopnea. He also endorses leg swelling that is chronic. Prior similar symptoms: Yes Recent Illness/Hospitalization: Yes (May 31 for diverticulitis and June 18 for end-stage renal disease at ) [facility] Medical History Essential hypertension Atrial flutter Hx of pulmonary embolus Obstructive sleep apnea FELA (obstructive sleep apnea) Hypertension Cancer Psoriasis Home Medications ?Medication ?Instructions ?Recorded ?Last Taken ?Type amlodipine 10 mg tablet 10 mg PO QHS Blood pressure 10/14/19 10/17/20 History escitalopram oxalate 20 mg tablet 20 mg PO DAILY Check with primary 10/14/19 10/22/22 History doctor bupropion HCl 75 mg tablet 75 mg PO DAILY Depression 09/18/22 Unknown History bethanechol chloride 25 mg tablet 25 mg PO TID 30 days #90 tabs 01/07/23 Unknown Rx albuterol sulfate 90 mcg/actuation 2 puff inhalation Q6H sob 01/14/23 Unknown History aerosol inhaler acetaminophen 325 mg tablet 650 mg (2 x 325 mg) PO Q6H PRN PRN 01/17/23 Unknown Rx Pain 1-10 Or Fever>100.7 #0 tabs ferrous sulfate 325 mg (65 mg 325 mg PO DAILY@1200 Check with 03/08/23 Unknown History iron) tablet (FeroSul) primary doctor fluticasone propionate 50 2 spray NASAL DAILY Check with 03/08/23 Unknown History mcg/actuation nasal primary doctor spray,suspension lidocaine 5 % topical patch 1 patch topical 0800 Check with 03/08/23 Unknown History primary doctor magnesium chloride 64 mg 250 mg PO DAILY Check with primary 03/08/23 Unknown History (magnesium chloride) doctor tablet,delayed release (Mag 64) vit A 300 mcg-C 200 mg-E 27 1 cap PO DAILYCM Check with 03/08/23 Unknown History mg-lutein 2 mg and minerals tablet primary doctor (Healthy Eyes) apixaban 5 mg tablet (Eliquis) 5 mg PO BID 30 days #60 tabs 03/13/23 Unknown Rx sennosides 8.6 mg-docusate sodium 2 tab PO BID #0 tabs 03/13/23 Unknown Rx 50 mg tablet (Stool Softener-Stimulant Laxative) cholecalciferol (vitamin D3) 1,250 1,250 mcg PO QWEEK 06/19/23 Unknown History mcg (50,000 unit) capsule colestipol 1 gram tablet 1 g PO DAILY 06/19/23 Unknown History ketoconazole 2 % topical cream 1 applic topical DAILY 06/19/23 Unknown History lisinopril 40 mg tablet 40 mg PO QHS 06/19/23 Unknown History teriparatide 20 mcg/dose (600 20 mcg subcut DAILY 06/19/23 Unknown History mcg/2.4 mL) subcutaneous pen injector (Forteo) baclofen 10 mg tablet 10 mg PO TID PRN muscle spasm 07/26/23 Unknown History carvedilol 25 mg tablet 25 mg PO BID Check with primary 07/26/23 Unknown History doctor cyclobenzaprine 5 mg tablet 5 mg PO TID PRN muscle spasm 07/26/23 Unknown History furosemide 20 mg tablet 20 mg PO DAILY PRN edema 07/26/23 Unknown History potassium chloride 10 mEq 10 meq PO DAILY PRN WITH LASIX 07/26/23 Unknown History tablet,extended release sildenafil 100 mg tablet 100 mg PO DAILY PRN SEE PCP 07/26/23 Unknown History cefuroxime axetil 500 mg tablet 500 mg PO BID #20 tabs 06/01/24 Unknown Rx metronidazole 500 mg tablet 500 mg PO BID #20 tabs 06/01/24 Unknown Rx ondansetron 8 mg disintegrating 8 mg PO Q8H PRN nausea and 06/01/24 Unknown Rx tablet vomiting #20 tabs budesonide-formoterol HFA 160 2 puff inhalation BID 07/13/24 Unknown History mcg-4.5 mcg/actuation aerosol inhaler gabapentin 300 mg capsule 300 mg PO DAILY 07/13/24 Unknown History losartan 25 mg tablet 25 mg PO DAILY 07/13/24 Unknown History oxycodone-acetaminophen 5 mg-325 1 tab PO Q8H PRN PRN pain 07/13/24 Unknown History mg tablet sevelamer carbonate 800 mg tablet 800 mg PO 4X/DAY 07/13/24 Unknown History tizanidine 2 mg tablet 2 mg PO TID PRN 07/13/24 Unknown History vitamin B complex-vitamin C-folic 1 tab PO DAILY 07/13/24 Unknown History acid 0.8 mg tablet (Shannon-Dia) Allergy/AdvReac Type Severity Reaction Status Date / Time lorazepam Allergy Other Verified 07/13/24 10:43 Penicillins Allergy Itching Verified 07/13/24 10:43 poison ever extract Allergy Itching Verified 07/13/24 10:43 Family History Mother CVA (cerebral vascular accident) Father CAD (coronary artery disease) Hypertension Cancer Prostate Other Brain aneurysm Heart disease Prostate CA Surgical History Status post laminectomy History of carpal tunnel surgery History of herniorrhaphy Hx of cholecystectomy Hx of appendectomy Social History household members: spouse Smoking Status: Former smoker alcohol intake: current alcohol intake frequency: 3 or more drinks per day substance use type: does not use ROS ROS ED Review of Systems ROS Unobtainable: other Details: Limited to respiratory failure Constitutional Constitutional ED: Denies chills, fever(s) or subjective Eyes Eyes: Denies blurry vision or change in vision ENT ENT ED: Denies rhinorrhea or sore throat Cardiovascular Cardiovascular: Reports chest pain and orthopnea; Denies palpitations Respiratory/Chest Respiratory/Chest: Reports cough, dyspnea, dyspnea on exertion and orthopnea Gastrointestinal Gastrointestinal: Denies nausea or vomiting Integumentary Denies rash Neurologic Neurologic: Reports weakness Hematologic/Lymphatic Hematologic/Lymphatic: Reports easy bruising EXAM Physical Exam Const Vital Signs: 07/13/24 10:42 07/13/24 10:43 07/13/24 10:45 Temperature 97.4 F L 97.8 F Temperature Source Temporal Temporal Pulse Rate 90 98 Respiratory Rate 18 20 H Respiratory Effort Normal Respiratory Depth Normal Respiratory Pattern Normal Blood Pressure 178/77 H 177/78 H Blood Pressure Mean 110 111 Pulse Ox 98 98 Oxygen Delivery Method Nasal Cannula Nasal Cannula Nasal Cannula Oxygen Flow Rate (L/min) 4 4 4 Fraction of Inspired Oxygen (FIO2) 07/13/24 11:13 07/13/24 11:25 07/13/24 11:42 Temperature Temperature Source Pulse Rate 76 Respiratory Rate 26 H 20 H Respiratory Effort Respiratory Depth Respiratory Pattern Tachypnea Blood Pressure 103/63 Blood Pressure Mean 76 Pulse Ox 97 95 100 Oxygen Delivery Method Nasal Cannula CPAP Oxygen Flow Rate (L/min) 4 Fraction of Inspired Oxygen (FIO2) 40 07/13/24 11:45 07/13/24 12:00 07/13/24 12:05 Temperature 97.0 F L 97.3 F L Temperature Source Temporal Temporal Pulse Rate 66 65 62 Respiratory Rate 20 H 20 H 15 Respiratory Effort Respiratory Depth Respiratory Pattern Blood Pressure 103/63 106/66 Blood Pressure Mean 76 79 Pulse Ox 99 100 99 Oxygen Delivery Method CPAP CPAP Oxygen Flow Rate (L/min) Fraction of Inspired Oxygen (FIO2) 30 07/13/24 12:50 07/13/24 13:00 07/13/24 14:00 Temperature 97.3 F L 97.5 F L Temperature Source Temporal Temporal Pulse Rate 70 67 62 Respiratory Rate 24 H 18 16 Respiratory Effort Respiratory Depth Respiratory Pattern Blood Pressure 115/75 105/68 Blood Pressure Mean 88 80 Pulse Ox 97 97 96 Oxygen Delivery Method Room Air CPAP Oxygen Flow Rate (L/min) Fraction of Inspired Oxygen (FIO2) 30 Positive well nourished and well developed Constitutional Narrative: Patient is in obvious respiratory distress. He is slightly mottled. Is paradoxical breathing. General Appearance ED: well developed and pallor HEENT normocephalic and atraumatic; Negative for cyanosis of lips/distal nose or tenderness Eyes PERRL and EOMs intact bilaterally General Eye ED: Negative for pale conjunctiva or scleral icterus Neck full ROM, no lymphadenopathy and supple Neck Narrative: Difficult to determine if patient has JVD due to body habitus. Chest Wall Chest Narrative: Chest wall is remarkable for a dialysis catheter right subclavian Cardio regular rhythm, S1 normal heart sound, S2 normal heart sound and no murmurs Rate: tachycardic Rhythm: abnormal rhythm irregularly irregular GI non-tender, non-distended and no masses Inspection: abdominal distention Auscultation: hypoactive bowel sounds Palpation: soft Back/Spine no CVA tenderness Extremity Extremity Narrative: Patient has venous stasis dermatitis of his lower extremities. Neuro oriented x3 and CN's II-XII intact bilaterally Sensorium / Orientation: alert Psych mental status grossly normal Skin General Skin Exam: pallor; Negative for jaundice Lesions: no lesions MDM MDM MDM Narrative Medical decision making narrative: Differential diagnosis would include fluid overload since he is noncompliant with his diet, with chest pain need to evaluate for cardiac ischemia with pulmonary edema, PE is in the differential always compliant with his anticoagulant and history and physical is not consistent with PE. Workup included EKG, chest x-ray appropriate blood work. Patient was placed on BiPAP. ABG was obtained. There is also possibility that he may have pneumonia which caused him to be hypoxic and have respiratory failure and angina. History & Record Review Additional record(s) reviewed:: Prior outpatient record, Prior ED visit and Prior labs Lab Data Attestation: I reviewed the patient's lab results. Lab results narrative: CBC reveals mild anemia with an MCV of 110. BMP is remarkable for mild hyponatremia and hypokalemia. CO2 is elevated at 33. Creatinine is elevated 2.94. BNP is 502. Troponin is normal. Glucose is slightly elevated with normal CO2 anion gap. Labs: Laboratory Results - last 24 hr 07/13/24 07/13/24 07/13/24 10:52 12:05 13:35 WBC 9.8 RBC 2.79 L Hgb 9.7 L Hct 30.7 L MCV 110.0 H MCH 34.8 H MCHC 31.6 L RDW Std Deviation 60.7 H RDW Coeff of Justine 14.9 H Plt Count 150 MPV 9.6 Immature Gran % (Auto) 0.700 Neut % (Auto) 86.3 H Lymph % (Auto) 3.8 L [place] % (Auto) 8.5 Eos % (Auto) 0.4 Baso % (Auto) 0.3 Absolute Neuts (auto) 8.4 H Absolute Lymphs (auto) 0.37 L Nucleated RBC % 0 Sodium 135 L Potassium 3.2 L Chloride 95 L Carbon Dioxide 33.0 H Anion Gap 7 BUN 26 H Creatinine 2.94 H Estim Creat Clear Calc 25.77 Est GFR (MDRD) Af Amer 28 L Est GFR (MDRD) Non-Af 23 L BUN/Creatinine Ratio 8.8 L Glucose 110 H Lactic Acid 1.1 Calcium 9.8 Troponin I High Sens 19 17 B-Natriuretic Peptide 502.3 H ABG Data ABG results: ABG 07/13/24 11:31 Specimen Type ART Sample Site L Brach pH 7.39 Bicarbonate Actual 35.3 H Total CO2 37 Base Excess 10 H O2 Saturation 98 O2 % 4.0 ABG pCO2 58.2 H ABG pO2 106 H O2 Delivery Device Cannula Vent Mode Not entered Radiography Chest X-Ray - ED: 1 View and Read by ED Physician (Limited inspiratory volume. Dialysis catheter note right subclavian. Open reduction internal fixation of spine thoracic lumbar. Cardiac silhouette and size appears normal. Image is suboptimal and no obvious abnormality noted. 1136.) Diagnostic Testing: Clinical Impression(s) from Imaging Studies Chest X-Ray 07/13/24 11:15 IMPRESSION: Vascular congestion. Findings suggestive of scarring at the lung bases more prominent on the right side. Multiple healed left rib fractures. Electronically Signed: Ayad Sexton MD at 11:49 EDT , EKG Initial EKG: Attestation: I personally reviewed and interpreted this EKG as follows: Interpretation: Sinus Rhythm (Sinus rhythm with frequent premature beats. Rate is 83. CO interval is normal. Cures duration 104 ms. QT duration 306 ms. There is no ossific changes which in my opinion is artifact because of patient's paradoxical breathing.) Critical Care Time Critical Care Time: Yes Critical care time (excluding procedures): 30-74 minutes (33), Including time spent: (History, physical, documentation, interpretation of laboratory results and imaging. Treatment for respiratory failure) and Discussing w/Patient &/or Family/Quill Stripper Discharge Plan Triage Chief Complaint: Shortness of Breath ED Provider: Jl Erazo Dx/Rx/DC Orders Prescriptions: No Action amlodipine 10 MG tablet 10 mg PO QHS escitalopram oxalate 20 MG tablet 20 mg PO DAILY bupropion HCl 75 mg tablet 75 mg PO DAILY Patient Comments: START WITH TAKING 1 TABLET DAILY AND INCREASE TO 1 TABLET TWICE DAILY IF TOLERATED bethanechol chloride 25 mg Tablet 25 mg PO TID 30 Days Qty: 90 0RF albuterol sulfate 90 mcg/actuation HFA aerosol inhaler 2 puff INHALATION Q6H Patient Comments: INHALE 2 PUFFS BY MOUTH EVERY 6 HOURS NEEDED FOR WHEEZING OR SHORTNESS OF BREATH acetaminophen 325 mg Tablet 650 mg PO Q6H PRN PRN (Reason: Pain 1-10 Or Fever>100.7) Qty: 0 0RF ferrous sulfate [FeroSul] 325 mg (65 mg iron) tablet 325 mg PO DAILY@1200 lidocaine 5 % adhesive patch,medicated 1 patch topical 0800 fluticasone propionate 50 mcg/actuation spray,suspension 2 spray NASAL DAILY Healthy Eyes 300 mcg-200 mg-27 mg-2 mg tablet 1 cap PO DAILYCM Mag 64 64 mg tablet,delayed release (DR/EC) 250 mg PO DAILY sennosides-docusate sodium [Stool Softener-Stimulant Laxat] 8.6-50 mg Tablet 2 tab PO BID Qty: 0 0RF Rx Instructions: Hold if more than 1 bowel movement per day Eliquis 5 mg Tablet 5 mg PO BID 30 Days Qty: 60 2RF lisinopril 40 mg tablet 40 mg PO QHS colestipol 1 gram tablet 1 g PO DAILY Patient Comments: TAKE 1 TABLET BY MOUTH ONCE DAILY AT BEDTIME ketoconazole 2 % cream 1 applic TOPICAL DAILY Forteo 20 mcg/dose (600mcg/2.4mL) pen injector 20 mcg subcut DAILY cholecalciferol (vitamin D3) 1,250 mcg (50,000 unit) capsule 1,250 mcg PO QWEEK baclofen 10 mg tablet 10 mg PO TID PRN (Reason: muscle spasm) furosemide 20 mg tablet 20 mg PO DAILY PRN (Reason: edema) potassium chloride 10 mEq tablet extended release 10 meq PO DAILY PRN (Reason: WITH LASIX) cyclobenzaprine 5 mg tablet 5 mg PO TID PRN (Reason: muscle spasm) sildenafil 100 mg tablet 100 mg PO DAILY PRN (Reason: SEE PCP) Rx Instructions: administer 30 minutes to 4 hours before activity carvedilol 25 mg tablet 25 mg PO BID Patient Comments: TAKE 1 TABLET BY MOUTH TWICE A DAY WITH MEALS Rx Instructions: Hold for heart less than 60 or systolic blood pressure less than 100 mmHg. tizanidine 2 mg tablet 2 mg PO TID PRN oxycodone-acetaminophen 5-325 mg tablet 1 tab PO Q8H PRN PRN (Reason: pain) losartan 25 mg tablet 25 mg PO DAILY gabapentin 300 mg capsule 300 mg PO DAILY budesonide-formoterol 160-4.5 mcg/actuation HFA aerosol inhaler 2 puff INHALATION BID sevelamer carbonate 800 mg tablet 800 mg PO 4X/DAY Shannon-Dia 0.8 mg tablet 1 tab PO DAILY metronidazole 500 mg tablet 500 mg PO BID Qty: 20 0RF ondansetron 8 mg tablet,disintegrating 8 mg PO Q8H PRN (Reason: nausea and vomiting) Qty: 20 0RF cefuroxime axetil 500 mg tablet 500 mg PO BID Qty: 20 0RF Primary Care Provider: Arleen Hwang Referrals: Arleen Hwang MD [Primary Care Provider] - Print Language: Palestinian
--- NOTE | 2024-07-13 11:15 | RAD_ITS ---
STUDY: X-RAY CHEST REASON FOR EXAM: Male, 69 years old. Respiratory failure, bilateral rales TECHNIQUE: Single AP portable view of the chest. COMPARISON: Comparison is made with prior study June 19, 2023. FINDINGS: A right-sided double lumen catheter seen with the tip in the right atrium. EKG electrodes are seen. There is evidence of a vascular congestion. Stable appearance of the right infrahilar region suggestive of scarring. There is no demonstrated pleural abnormality. Normal size heart. Normal mediastinum and brennen. Normal visualized pulmonary arteries. There is atherosclerotic calcification of the aortic arch with tortuosity. There are diffuse degenerative changes of the visualized thoracic spine. Prior interpedicular screw and dianne fixation of the thoracic spine as well as the lumbar spine. Multiple healed left-sided rib fractures. Degenerative changes of the shoulder joints. There is no demonstrated abnormality of the visualized soft tissue structures of the upper abdomen. RAD/Chest 1 View (Portable) IMPRESSION: Vascular congestion. Findings suggestive of scarring at the lung bases more prominent on the right side. Multiple healed left rib fractures. Electronically Signed: Ayad Sexton MD at 11:49 EDT ,
[2024-07-13 11:27] LABS: Absolute Lymphocyte Count 0.37 X10^3/uL (0.83-4.51); Absolute Neutrophil Count 8.4 X10^3/uL (2.0-7.7); Basophil# 0.03 X10^3/uL; Basophil% 0.3 % (0-1); Eosinophil# 0.04 X10^3/uL; Eosinophils% 0.4 % (0-5); Hematocrit 30.7 % (40-54); Hemoglobin 9.7 g/dL (13.0-16.5); Lymphocyte # 0.37 X10^3/ul (0.83-4.51); Lymphocyte % 3.8 % (19-41); Mean Corp Hgb Conc 31.6 g/dL (32-36); Mean Corpuscular Hgb 34.8 pg (27.0-32.0); Mean Platelet Vol. 9.6 fl (6.2-12.0); Monocyte# 0.83 X10^3/uL; Monocyte% 8.5 % (0-10); NRBC Flagged by Analyzer 0 % (0-5); Neutrophil # 8.43 X10^3/uL (2.7-7.7); Neutrophil % 86.3 % (47-70); POSITIVE DIFFERENTIAL YES; Platelet Count 150 K/mm3 (150-450); RBC Distribution Width CV 14.9 % (11.6-14.6); RBC Distribution Width SD 60.7 fl (35.1-43.9); Red Blood Count 2.79 M/mm3 (4.6-6.2); White Blood Count 9.8 K/mm3 (4.4-11.0)
[2024-07-13 11:34] LABS: Base Excess 10 mmol/L (-2 to +2); Bicarbonate 35.3 mmol/L (22-26); Blood Gas Specimen Type ART; Mode Not entered; O2 Delivery Device Cannula; PO2 106 mmHG (75-100); SITE L Brach; SO2 98 % (95-99); Total Carbon Dioxide 37 mmol/L; pCO2 58.2 mmHg (35-45); pH 7.39 (7.35-7.45)
[2024-07-13 11:43] LABS: Anion Gap 7 (5-15); BUN 26 mg/dL (7-18); BUN/Creat Ratio 8.8 RATIO (10-20); Calcium,Total 9.8 mg/dL (8.5-10.1); Chloride 95 mmol/L (98-107); Creatinine, Serum 2.94 mg/dL (0.70-1.30); EST Glomerular Filtration Rate 23 mL/min (>60); Est Glom Filt Rate - Afr Amer 28 mL/min (>60); Estimated Creatinine Clearance 25.77 ml/min; Glucose 110 mg/dL (74-106); Potassium 3.2 mmol/L (3.5-5.1); Sodium Level 135 mmol/L (136-145); Troponin-I HS (w/2H Reflex) 19 pg/mL (3.0-78.0)
[2024-07-13 11:47] LABS: BNP,B-Type NATRIURETIC PEPTIDE 502.3 pg/mL (0-100)
--- NOTE | 2024-07-13 11:50 | ED.RN ---
NURSE BIRCH TREE [employer] [facility], , REQUESTING UPDATES, GALDINO CHEN (CAREGIVER),
[2024-07-13 12:40] LABS: Lactic Acid 1.1 mmol/L (0.4-1.9)
--- NOTE | 2024-07-13 12:56 | CT_ITS ---
STUDY: CTA CHEST REASON FOR EXAM: Male, 69 years old. Prior PE, dyspnea, hypoxia RADIATION DOSAGE (If Supplied By Facility): CTDIvol = ( 22.61 ) mGy, DLP = ( 761.02 ) mGycm TECHNIQUE: The examination was performed with the intravenous administration of IV 100mL [id number]-370. Post-processing of the angiographic images was performed, with multiplanar reformation and 3D reconstruction. Individualized dose optimization techniques were used for this CT. COMPARISON: Comparison is made with prior study dated March 08, 2023. Comparison is made with prior chest radiograph done earlier today. FINDINGS: Normal enhancement of the main pulmonary artery and right and left pulmonary arteries. Normal enhancement of the bilateral peripheral pulmonary arteries. There is no demonstrated pulmonary embolism. Normal thoracic aorta and visualized great vessels. There is no demonstrated aortic dissection. Mild coronary calcification. Normal mediastinum. Normal hilar regions. Normal visualized trachea and bronchi. Bibasilar infiltrates. Patchy infiltrate in the posterior aspect of the right middle lobe abutting the right minor fissure. A right-sided double-lumen catheter is seen within the superior vena cava. Tiny bilateral pleural effusions. Kyphosis. Prior fusion of the mid thoracic and upper lumbar spine. Loss of height of multiple lower cervical and thoracic vertebrae. Healed bilateral rib fractures. Multiple myeloma should be ruled out. The patient is status post cholecystectomy. CT/CTA Chest W/WO Contrast IMPRESSION: No evidence of pulmonary embolism. Bibasilar infiltrates as described. Prior thoracic and lumbar fusion as described with evidence of demineralization and deformity and loss of height of multiple vertebrae and ribs. Multiple myeloma should be ruled out. Electronically Signed: Ayad Sexton MD at 14:24 EDT ,
[2024-07-13 13:23] LABS: Reflex Troponin-HS? (from REC) Y
[2024-07-13] MEDS: Morphine 4 MG/ML Syringe IV (13:31)
[2024-07-13 14:00] LABS: Troponin-I HS 17 pg/mL (3.0-78.0)
--- NOTE | 2024-07-13 14:26 | ED.RN ---
PT GAVE VERBAL CONSENT FOR NURSE TO SPEAK WITH VANNA MARSHALL REGARDING CARE
--- NOTE | 2024-07-13 15:02 | HP.PCM.HOS_ITS ---
HPI - General General Date of Admission: 07/13/24 Date of Service: 07/13/24 Chief Complaint: Shortness of breath HPI Narrative ZIYAD BAER, is a 69 M who presented to the emergency department to come the hospital on 07/13/2024 with a chief complaint of shortness of breath. He complains of associated pressure sensation in his chest, chills, and cough a couple times a day he will bring up sputum. He has had no documented fever or chills, denies any upper respiratory symptoms including runny nose, headache, nasal congestion or rhinorrhea but does complain of some orthopnea and lower extremity swelling that is chronic. He does not state that his lower extremity edema is any worse than previous. The patient is dialysis dependent and typically goes to dialysis on Saturday, , and Saturday. He does admit he has not been compliant with his diet has not missed any dialysis sessions. He indicates dialysis usually wipes him out and he is feeling pretty good by Saturday however this Saturday he was not feeling well. He continued to not feel well so he presented to the emergency department today for further evaluation. Vital signs on presentation showed a temperature at 97.4, respiratory rate was 18-26, blood pressure is 178/77 and pulse ox was 94% on 4 L nasal cannula the patient is not oxygen dependent at baseline. Unfortunately, there is no room air oxygenation tested. He was hypoxic on his ABG on 4 L nasal cannula with a sat of 90%. CBC shows a normal white count with this chronic stable anemia having a hemoglobin of 9.7 however he did have a left shift with an 86.3% neutrophilia. An ABG was performed and showed a pH of 7.39, pCO2 of 58.2 and a pO2 of 106 on 4 L nasal cannula indicative of a pulse ox of 98%. Chemistry showed mild hyponatremia the sodium of 135, hypokalemia potassium of 3.2 and a chronically elevated serum bicarbonate 33. His BUN was 26 and creatinine was 2.94. Lactic acid was 1.1. Troponin was 19 and 17 respectively his BNP was elevated at 502 which is down from previous. EKG shows no changes consistent with ischemia. Chest x-ray shows vascular congestion and abnormalities at the lung bases. CTA of the chest was performed and did not demonstrate PE or dissection but he does have bibasilar infiltrates with air bronchograms noted on the right at my evaluation. He was treated with antibiotics and request for admission was made after he was placed on BiPAP. BiPAP was utilized predominantly for decreasing his work of breathing and he did receive significant relief from this. [facility] Medical History Essential hypertension Atrial flutter Hx of pulmonary embolus Obstructive sleep apnea FELA (obstructive sleep apnea) Hypertension Cancer Psoriasis Home Medications ?Medication ?Instructions ?Recorded ?Last Taken ?Type amlodipine 10 mg tablet 10 mg PO QHS Blood pressure 10/14/19 10/17/20 History escitalopram oxalate 20 mg tablet 20 mg PO DAILY Check with primary 10/14/19 10/22/22 History doctor bupropion HCl 75 mg tablet 75 mg PO DAILY Depression 09/18/22 Unknown History bethanechol chloride 25 mg tablet 25 mg PO TID 30 days #90 tabs 01/07/23 Unknown Rx albuterol sulfate 90 mcg/actuation 2 puff inhalation Q6H sob 01/14/23 Unknown History aerosol inhaler acetaminophen 325 mg tablet 650 mg (2 x 325 mg) PO Q6H PRN PRN 01/17/23 Unknown Rx Pain 1-10 Or Fever>100.7 #0 tabs ferrous sulfate 325 mg (65 mg 325 mg PO DAILY@1200 Check with 03/08/23 Unknown History iron) tablet (FeroSul) primary doctor fluticasone propionate 50 2 spray NASAL DAILY Check with 03/08/23 Unknown History mcg/actuation nasal primary doctor spray,suspension lidocaine 5 % topical patch 1 patch topical 0800 Check with 03/08/23 Unknown History primary doctor magnesium chloride 64 mg 250 mg PO DAILY Check with primary 03/08/23 Unknown History (magnesium chloride) doctor tablet,delayed release (Mag 64) vit A 300 mcg-C 200 mg-E 27 1 cap PO DAILYCM Check with 03/08/23 Unknown History mg-lutein 2 mg and minerals tablet primary doctor (Healthy Eyes) apixaban 5 mg tablet (Eliquis) 5 mg PO BID 30 days #60 tabs 03/13/23 Unknown Rx sennosides 8.6 mg-docusate sodium 2 tab PO BID #0 tabs 03/13/23 Unknown Rx 50 mg tablet (Stool Softener-Stimulant Laxative) cholecalciferol (vitamin D3) 1,250 1,250 mcg PO QWEEK 06/19/23 Unknown History mcg (50,000 unit) capsule colestipol 1 gram tablet 1 g PO DAILY 06/19/23 Unknown History ketoconazole 2 % topical cream 1 applic topical DAILY 06/19/23 Unknown History lisinopril 40 mg tablet 40 mg PO QHS 06/19/23 Unknown History teriparatide 20 mcg/dose (600 20 mcg subcut DAILY 06/19/23 Unknown History mcg/2.4 mL) subcutaneous pen injector (Forteo) baclofen 10 mg tablet 10 mg PO TID PRN muscle spasm 07/26/23 Unknown History carvedilol 25 mg tablet 25 mg PO BID Check with primary 07/26/23 Unknown History doctor cyclobenzaprine 5 mg tablet 5 mg PO TID PRN muscle spasm 07/26/23 Unknown History furosemide 20 mg tablet 20 mg PO DAILY PRN edema 07/26/23 Unknown History potassium chloride 10 mEq 10 meq PO DAILY PRN WITH LASIX 07/26/23 Unknown History tablet,extended release sildenafil 100 mg tablet 100 mg PO DAILY PRN SEE PCP 07/26/23 Unknown History cefuroxime axetil 500 mg tablet 500 mg PO BID #20 tabs 06/01/24 Unknown Rx metronidazole 500 mg tablet 500 mg PO BID #20 tabs 06/01/24 Unknown Rx ondansetron 8 mg disintegrating 8 mg PO Q8H PRN nausea and 06/01/24 Unknown Rx tablet vomiting #20 tabs budesonide-formoterol HFA 160 2 puff inhalation BID 07/13/24 Unknown History mcg-4.5 mcg/actuation aerosol inhaler gabapentin 300 mg capsule 300 mg PO DAILY 07/13/24 Unknown History losartan 25 mg tablet 25 mg PO DAILY 07/13/24 Unknown History oxycodone-acetaminophen 5 mg-325 1 tab PO Q8H PRN PRN pain 07/13/24 Unknown History mg tablet sevelamer carbonate 800 mg tablet 800 mg PO 4X/DAY 07/13/24 Unknown History tizanidine 2 mg tablet 2 mg PO TID PRN 07/13/24 Unknown History vitamin B complex-vitamin C-folic 1 tab PO DAILY 07/13/24 Unknown History acid 0.8 mg tablet (Shannon-Dia) Allergy/AdvReac Type Severity Reaction Status Date / Time lorazepam Allergy Other Verified 07/13/24 10:43 Penicillins Allergy Itching Verified 07/13/24 10:43 poison ever extract Allergy Itching Verified 07/13/24 10:43 Family History Mother CVA (cerebral vascular accident) Father CAD (coronary artery disease) Hypertension Cancer Prostate Other Brain aneurysm Heart disease Prostate CA Surgical History Status post laminectomy History of carpal tunnel surgery History of herniorrhaphy Hx of cholecystectomy Hx of appendectomy Social History household members: spouse Smoking Status: Former smoker alcohol intake: current alcohol intake frequency: 3 or more drinks per day substance use type: does not use ROS Constitutional Constitutional: Reports chills, fatigue, malaise and weakness; Denies anorexia, change in weight, fever(s), night sweats or other Eyes Eyes: Denies blurry vision, change in eye color, change in vision, discharge from eye(s), double vision, erythema, eye pain, loss of vision or other ENT HEENT: Denies abnormal hearing, dysphagia, ear pain, epistaxis, headache(s), hearing loss, nasal congestion, nasal discharge, post nasal drip, sinus pressure, sore throat or other Cardiovascular Cardiovascular: Reports chest pain, dyspnea on exertion and orthopnea; Denies claudication, edema, lightheadedness, palpitations, paroxysmal nocturnal dyspnea, rapid heart rate, syncope or other Respiratory/Chest Respiratory/Chest: Reports cough, dyspnea, productive cough and shortness of breath with exertion Gastrointestinal Gastrointestinal: Denies abdominal pain, coffee ground emesis, constipation, diarrhea, dyspepsia, hematemesis, hematochezia, loose stools, melena, nausea, vomiting or other Genitourinary Genitourinary: Denies burning urination, difficulty urinating, dysuria, hematuria, nocturia, urinary frequency, urinary hesitancy, urinary incontinence, urinary urgency or other Musculoskeletal Musculoskeletal: Reports back pain, joint pain and joint stiffness; Denies arthralgias, joint swelling, myalgias, neck pain or other Neurologic Neurologic: Denies abnormal gait, abnormal speech, confusion, disequilibrium, dizziness, focal weakness, headache(s), numbness, paresthesias, seizure-like activity, seizures, syncope, tingling, tremor(s) or other Psychiatric Psychiatric: Reports anxiety, depression and suicidal ideation; Denies homicidal ideation or other Endocrine Endocrinology: Denies change in body appearance, cold intolerance, excessive sweating, heat intolerance, polydipsia, polyuria or other Hematologic/Lymphatic Hematologic/Lymphatic: Denies anemia, easy bleeding, easy bruising, lymphadenopathy or other Allergic/Immunologic Allergic/Immunologic: Denies rhinitis, hives, eczemia, asthma or other Vital Signs Vital Signs Vital Signs: 07/13/24 10:42 07/13/24 10:43 07/13/24 10:45 Temperature 97.4 F L 97.8 F Temperature Source Temporal Temporal Pulse Rate 90 98 Respiratory Rate 18 20 H Respiratory Effort Normal Respiratory Depth Normal Respiratory Pattern Normal Blood Pressure 178/77 H 177/78 H Blood Pressure Mean 110 111 Pulse Ox 98 98 Oxygen Delivery Method Nasal Cannula Nasal Cannula Nasal Cannula Oxygen Flow Rate (L/min) 4 4 4 Fraction of Inspired Oxygen (FIO2) 07/13/24 11:13 07/13/24 11:25 07/13/24 11:42 Temperature Temperature Source Pulse Rate 76 Respiratory Rate 26 H 20 H Respiratory Effort Respiratory Depth Respiratory Pattern Tachypnea Blood Pressure 103/63 Blood Pressure Mean 76 Pulse Ox 97 95 100 Oxygen Delivery Method Nasal Cannula CPAP Oxygen Flow Rate (L/min) 4 Fraction of Inspired Oxygen (FIO2) 40 07/13/24 11:45 07/13/24 12:00 07/13/24 12:05 Temperature 97.0 F L 97.3 F L Temperature Source Temporal Temporal Pulse Rate 66 65 62 Respiratory Rate 20 H 20 H 15 Respiratory Effort Respiratory Depth Respiratory Pattern Blood Pressure 103/63 106/66 Blood Pressure Mean 76 79 Pulse Ox 99 100 99 Oxygen Delivery Method CPAP CPAP Oxygen Flow Rate (L/min) Fraction of Inspired Oxygen (FIO2) 30 07/13/24 12:50 07/13/24 13:00 07/13/24 14:00 Temperature 97.3 F L 97.5 F L Temperature Source Temporal Temporal Pulse Rate 70 67 62 Respiratory Rate 24 H 18 16 Respiratory Effort Respiratory Depth Respiratory Pattern Blood Pressure 115/75 105/68 Blood Pressure Mean 88 80 Pulse Ox 97 97 96 Oxygen Delivery Method Room Air CPAP Oxygen Flow Rate (L/min) Fraction of Inspired Oxygen (FIO2) 30 Weight Weight: 94.6 kg Body Mass Index (BMI) 34.7 Physical Exam Const alert, oriented x3, no apparent distress and well nourished; Negative for average body habitus or healthy appearing Constitutional Narrative: Overweight, upper middle-aged, white male, lying in bed on BiPAP, currently appears comfortable with no signs of respiratory distress, nursing staff and respiratory therapist at bedside, appears ill but nontoxic General Appearance: cooperative HEENT normocephalic, head/scalp atraumatic, hearing grossly normal bilaterally and moist oral mucous membranes HEENT Narrative: BiPAP in place, Mallampati 3, no thrush Eyes PERRL, EOMs intact bilaterally and conjunctivae normal Eyes Narrative: No scleral icterus Neck no lymphadenopathy and supple Neck Narrative: Trachea midline, no thyroid enlargement, mild JVD noted Resp no retractions and no use of accessory muscles Resp Narrative: Few crackles and rhonchi in right base, left base diminished, currently on BiPAP Auscultation: crackles and rhonchi; Negative for wheezes Cardio regular rate, regular rhythm, S1 normal heart sound, S2 normal heart sound, no murmurs, no rub, no gallops and no clicks Cardio Narrative: Heart tones are distant due to body habitus GI normal to inspection, nondistended, normoactive bowel sounds, soft to palpation and non-tender Extremity Extremity Narrative: 2+ pedal edema bilaterally, no cyanosis or clubbing, pedal pulses and radial pulses are 2+ Skin No no rashes or lesions noted, No no wounds, skin turgor normal, no jaundice, no petechiae and no mottling Skin Narrative: Bilateral lower extremity skin changes consistent with chronic venous stasis, left lower extremity erythematous medially and very tender, area is warm, 2 well-healing lesions were noted at the proximal aspect of the erythema, mild tenderness at the lateral leg but less erythematous and tender than the right Neuro oriented x3, moves all extremities and no focal motor deficits Speech: speech normal Psych Psych Narrative: Affect is flat, mood seems depressed Mood & Affect: depressed Results Lab / Micro Data 07/13/24 10:52 07/13/24 10:52 Labs: Laboratory Results - last 24 hr 07/13/24 10:52: WBC 9.8, RBC 2.79 L, Hgb 9.7 L, Hct 30.7 L, MCV 110.0 H, MCH 34.8 H, MCHC 31.6 L, RDW Std Deviation 60.7 H, RDW Coeff of Justine 14.9 H, Plt Count 150, MPV 9.6, Immature Gran % (Auto) 0.700, Neut % (Auto) 86.3 H, Lymph % (Auto) 3.8 L, Calvert % (Auto) 8.5, Eos % (Auto) 0.4, Baso % (Auto) 0.3, Absolute Neuts (auto) 8.4 H, Absolute Lymphs (auto) 0.37 L, Nucleated RBC % 0, Sodium 135 L, Potassium 3.2 L, Chloride 95 L, Carbon Dioxide 33.0 H, Anion Gap 7, BUN 26 H, Creatinine 2.94 H, Estim Creat Clear Calc 25.77, Est GFR (MDRD) Af Amer 28 L, E st GFR (MDRD) Non-Af 23 L, BUN/Creatinine Ratio 8.8 L, Glucose 110 H, Calcium 9.8, Troponin I High Sens 19, B-Natriuretic Peptide 502.3 H 07/13/24 12:05: Lactic Acid 1.1 07/13/24 13:35: Troponin I High Sens 17 ABG Data ABG results: ABG 07/13/24 11:31 Specimen Type ART Sample Site L Brach pH 7.39 Bicarbonate Actual 35.3 H Total CO2 37 Base Excess 10 H O2 Saturation 98 O2 % 4.0 ABG pCO2 58.2 H ABG pO2 106 H O2 Delivery Device Cannula Vent Mode Not entered Imaging Radiology Impression Chest X-Ray 07/13/24 11:15 IMPRESSION: Vascular congestion. Findings suggestive of scarring at the lung bases more prominent on the right side. Multiple healed left rib fractures. Electronically Signed: Ayad Sexton MD at 11:49 EDT , Chest CTA 07/13/24 12:56 IMPRESSION: No evidence of pulmonary embolism. Bibasilar infiltrates as described. Prior thoracic and lumbar fusion as described with evidence of demineralization and deformity and loss of height of multiple vertebrae and ribs. Multiple myeloma should be ruled out. Electronically Signed: Ayad Sexton MD at 14:24 EDT , Assessment & Plan Assessment/Plan (1) Acute hypoxemic respiratory failure: (2) Pneumonia of both lower lobes: (3) Hypokalemia: (4) Left leg cellulitis: PLAN: Plan Acute hypoxic respiratory failure secondary to volume overload/right lower lobe pneumonia -Patient has a high risk for MRSA/Pseudomonas so will start on vancomycin and Zosyn as well as azithromycin to cover atypicals for now -Check strep pneumo and Legionella antigen if able to produce any urine to do so -Check sputum culture -Check respiratory viral panel and COVID-19 PCR -Pulmonary toilet -I-S/Pep therapy -Mucinex 1200 mg p.o. twice daily -Would recommend fluid restriction once p.o. diet is initiated -Consult nephrology for assistance with volume removal via dialysis -Continue BiPAP for now and n.p.o. status -Could transition to Airvo as patient seems to be ventilating well and oxygenation seems to be the primary issue Left lower extremity cellulitis -Antibiotics as above with vancomycin and Zosyn -Will hold on ultrasound as patient is fully anticoagulated baseline with apixaban -Wound care consultation Hypokalemia -P.o. potassium given emergency department -Check a.m. potassium and magnesium level End-stage renal disease -HD dependent -Continue home sevelamer -Consult nephrology -Patient is not compliant with diet -Patient does appear to be somewhat volume overloaded on exam Chronic macrocytic anemia -Hemoglobin stable -Suspect multifactorial -Monitor for stability 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 -Continue Eliquis History of A-fib/flutter -Patient is on no rate controlling medications as his fib/flutter is not conjoined with RVR -Continue Eliquis Hypertension -Medications have not yet been verified for hypertension -Hold all antihypertensives -Blood pressures are currently on the low side -As needed hydralazine for systolic blood pressure greater than 160 Aortic aneurysm -Stable ascending aortic aneurysm noted on most recent CTA -4.4 cm -Control blood pressure -Recommend outpatient follow-up FELA -Will transition nocturnal CPAP once off BiPAP COPD -Patient had irreversibly moderately severe mixed ventilatory defect with symmetric reduction in diffusing capacity noted on his PFTs from March 2023 -FEV1 was 54% predicted -Nebulizers as above -Recommend outpatient follow-up with pulmonary medicine after discharge Depression/suicidal ideation -Continue home bupropion -Case management consulted -Patient has no current plan DVT prophylaxis -Continue apixaban CODE STATUS -Full code verified at admission Charges/Coding Visit Charges Inpatient E&M: 25514 Init Hosp L3
[2024-07-13] MEDS: Ceftriaxone 2 GM in 0.9% Normal Saline (50mL MB+) 50 ML IV (15:05)
[2024-07-13] MEDS: Azithromycin 500 MG in Dextrose 5%-Water (250mL Bag) 250 ML 250 MG IV (15:47)
[2024-07-13] MEDS: Potassium Chloride Oral Tablet 20 MEQ 40 MEQ PO (17:08)
[2024-07-13] MEDS: Acetaminophen 325 MG Tablet 650 MG PO (17:09)
[2024-07-13] MEDS: Vancomycin HCl 1,500 MG in 0.9% Normal Saline (500mL Bag) 500 ML 250 MG IV (17:20)
[2024-07-13] MEDS: guaiFENesin 1,200 MG Tablet 1200 MG PO (21:39)
[2024-07-13] MEDS: SEVELAMER CARBONATE 800 MG TABLET PO (21:39)
[2024-07-13] MEDS: APIXABAN 5 MG TABLET PO (21:40)
--- NOTE | 2024-07-13 22:49 | PCM.RX.CS ---
Consult Antibiotic Management Pharmacy has been consulted to manage selected antibiotic: Vancomycin Type of Intervention Type of Consult: New start Suspected Infection Suspected Infection: Skin/Soft tissue and Pneumonia Labs Labs: Sodium 135 mmol/L (136-145) L 07/13/24 10:52 Potassium 3.2 mmol/L (3.5-5.1) L 07/13/24 10:52 Chloride 95 mmol/L (98-107) L 07/13/24 10:52 Carbon Dioxide 33.0 mmol/L (21.0-32.0) H 07/13/24 10:52 Anion Gap 7 (5-15) 07/13/24 10:52 BUN 26 mg/dL (7-18) H 07/13/24 10:52 Creatinine 2.94 mg/dL (0.70-1.30) H 07/13/24 10:52 Est GFR (MDRD) Af Amer 28 mL/min (>60) L 07/13/24 10:52 Est GFR (MDRD) Non-Af 23 mL/min (>60) L 07/13/24 10:52 BUN/Creatinine Ratio 8.8 RATIO (10-20) L 07/13/24 10:52 Glucose 110 mg/dL (74-106) H 07/13/24 10:52 Dosing Weight Weight used for dosin.4 kg Goal Trough Goal Trough: 15-20 mcg/mL Pharmacy Plan for Drug Dosing Pharmacy Plan for Drug Dosing: Initial vancomycin IV dose of 1500mg was given 07/13/24 @1720. Further dosing will be timed for after HD sessions and determined by vanco levels. Pharmacy will verify with nursing the dialysis schedule. Pharmacy Service will continue to monitor and adjust dosing as required.
[2024-07-14] VITALS (38 sets, daily range): BP systolic 96–213; BP diastolic 50–97; PULSE 60–115; RESP 12–22; TEMP 36.6–36.7; O2SAT 92–100; BMI 29.2; BMI 29.7
[2024-07-14 04:23] LABS: Absolute Lymphocyte Count 0.66 X10^3/uL (0.83-4.51); Absolute Neutrophil Count 6.8 X10^3/uL (2.0-7.7); Basophil# 0.02 X10^3/uL; Basophil% 0.2 % (0-1); Eosinophil# 0.05 X10^3/uL; Eosinophils% 0.6 % (0-5); Hematocrit 26.5 % (40-54); Hemoglobin 8.4 g/dL (13.0-16.5); Lymphocyte # 0.66 X10^3/ul (0.83-4.51); Lymphocyte % 7.8 % (19-41); Mean Corp Hgb Conc 31.7 g/dL (32-36); Mean Corpuscular Volume 110.4 fL (80-94); Mean Platelet Vol. 9.1 fl (6.2-12.0); Monocyte# 0.81 X10^3/uL; Monocyte% 9.6 % (0-10); NRBC Flagged by Analyzer 0 % (0-5); Neutrophil # 6.82 X10^3/uL (2.7-7.7); Neutrophil % 81.1 % (47-70); Platelet Count 111 K/mm3 (150-450); RBC Distribution Width CV 14.9 % (11.6-14.6); RBC Distribution Width SD 61.2 fl (35.1-43.9); White Blood Count 8.4 K/mm3 (4.4-11.0)
[2024-07-14] MEDS: 0.9% Saline Lock 10 ML Syringe IV (04:25)
[2024-07-14] MEDS: Acetaminophen 325 MG Tablet 650 MG PO ×2 (04:31→20:14)
[2024-07-14] MEDS: oxyCODONE 5 MG Tablet PO ×3 (04:32→20:14)
[2024-07-14 04:40] LABS: ALB/GLOB Ratio 0.7 RATIO (0.9-2.4); AST(SGOT) 6 U/L (15-37); Alanine Aminotransfer ALT/SGPT 9 U/L (16-61); Albumin, Serum 1.9 g/dL (3.2-5.0); Alkaline Phosphatase 112 U/L (45-117); Anion Gap 5 (5-15); BUN 31 mg/dL (7-18); BUN/Creat Ratio 9.4 RATIO (10-20); Calcium,Total 9.3 mg/dL (8.5-10.1); Chloride 96 mmol/L (98-107); Creatinine, Serum 3.29 mg/dL (0.70-1.30); EST Glomerular Filtration Rate 20 mL/min (>60); Est Glom Filt Rate - Afr Amer 24 mL/min (>60); Estimated Creatinine Clearance 25.58 ml/min; Globulin 2.7 g/dL (2.2-4.2); Glucose 87 mg/dL (74-106); Magnesium 1.6 mg/dL (1.6-2.6); Phosphorus 2.7 mg/dL (2.5-4.9); Potassium 3.4 mmol/L (3.5-5.1); Protein, Total 4.6 g/dL (6.4-8.2); Sodium Level 135 mmol/L (136-145)
--- NOTE | 2024-07-14 04:41 | NURSING ---
during emergency medicine physician assistant, pt seeming to have a hard time w/ swallowing water. Pt did not demonstrate this during 1st med pass but pills were crushed then upon pt request due to their big size and pt had small sips of water. Will keep pt NPO per order and crush meds with . Will notify physician
[2024-07-14] MEDS: Ipratropium/Albuterol Sulfate 3 ML AMPUL.NEB INHALATION ×3 (07:10→18:39)
[2024-07-14] MEDS: Budesonide Respules 0.5 MG/2 ML AMPUL.NEB. INHALATION ×2 (07:10→18:39)
--- NOTE | 2024-07-14 07:35 | PCM.PN.HOSP ---
Reason for Visit Reason for Visit: Diagnoses Hypokalemia (07/13/24) Pneumonia, unspecified organism (07/13/24) Acute respiratory failure with hypoxia (07/13/24) Cellulitis of left lower limb (07/13/24) Objective Data Objective Data Vital Signs: Vital Signs Temp Pulse Resp BP Pulse Ox O2 Del Method O2 Flow Rate 97.6 F L 68 12 109/65 96 Bi-pap 6 07/13/24 23:00 07/14/24 07:14 07/14/24 07:14 07/14/24 07:00 07/14/24 07:14 07/14/24 07:12 07/14/24 04:00 FiO2 30 07/14/24 07:14 Oxygen Flow Rate (L/min) 6 Oxygen Delivery Method Bi-pap Weight: 208 lb 8.917 oz Body Mass Index (BMI) 29.2 Intake & Output: Intake and Output for Last 24 Hours 07/12/24 07/13/24 07/14/24 23:59 23:59 23:59 Intake Total 835 / 835 Output Total 150 / 150 100 / 100 Balance 685 / 685 -100 / -100 Lab / Micro Data 07/14/24 04:15 07/14/24 04:15 Labs: Laboratory Results - last 24 hr 07/13/24 10:52: WBC 9.8, RBC 2.79 L, Hgb 9.7 L, Hct 30.7 L, MCV 110.0 H, MCH 34.8 H, MCHC 31.6 L, RDW Std Deviation 60.7 H, RDW Coeff of Justine 14.9 H, Plt Count 150, MPV 9.6, Immature Gran % (Auto) 0.700, Neut % (Auto) 86.3 H, Lymph % (Auto) 3.8 L, Storey % (Auto) 8.5, Eos % (Auto) 0.4, Baso % (Auto) 0.3, Absolute Neuts (auto) 8.4 H, Absolute Lymphs (auto) 0.37 L, Nucleated RBC % 0, Sodium 135 L, Potassium 3.2 L, Chloride 95 L, Carbon Dioxide 33.0 H, Anion Gap 7, BUN 26 H, Creatinine 2.94 H, Estim Creat Clear Calc 25.77, Est GFR (MDRD) Af Amer 28 L, Est GFR (MDRD) Non-Af 23 L, BUN/Creatinine Ratio 8.8 L, Glucose 110 H, Calcium 9.8, Troponin I High Sens 19, B-Natriuretic Peptide 502.3 H 07/13/24 12:05: Lactic Acid 1.1 07/13/24 13:35: Troponin I High Sens 17 07/14/24 04:15: WBC 8.4, RBC 2.40 L, Hgb 8.4 L, Hct 26.5 L, MCV 110.4 H, MCH 35.0 H, MCHC 31.7 L, RDW Std Deviation 61.2 H, RDW Coeff of Justine 14.9 H, Plt Count 111 L, MPV 9.1, Immature Gran % (Auto) 0.700, Neut % (Auto) 81.1 H, Lymph % (Auto) 7.8 L, Storey % (Auto) 9.6, Eos % (Auto) 0.6, Baso % (Auto) 0.2, Absolute Neuts (auto) 6.8, Absolute Lymphs (auto) 0.66 L, Nucleated RBC % 0, Sodium 135 L, Potassium 3.4 L, Chloride 96 L, Carbon Dioxide 34.0 H, Anion Gap 5, BUN 31 H, Creatinine 3.29 H, Estim Creat Clear Calc 25.58, Est GFR (MDRD) Af Amer 24 L, Est GFR (MDRD) Non-Af 20 L, BUN/Creatinine Ratio 9.4 L, Glucose 87, Calcium 9.3, Phosphorus 2.7, Magnesium 1.6, Total Bilirubin 0.50, AST 6 L, ALT 9 L, Alkaline Phosphatase 112, Total Protein 4.6 L, Albumin 1.9 L, Globulin 2.7, Albumin/Globulin Ratio 0.7 L Micro: Microbiology 07/14/24 04:29 Urine, Random Legionella Antigen - Final 07/14/24 04:29 Urine, Random Streptococcus pneumoniae Antigen (M - Final 07/13/24 16:35 Mucosa - Nasopharyngeal Respiratory Panel (PCR) - Final 07/13/24 21:54 Nasal Secretion SARS-CoV-2 Antigen (Rapid) - Final ABG Data ABG results: ABG 07/13/24 11:31 Specimen Type ART Sample Site L Brach pH 7.39 Bicarbonate Actual 35.3 H Total CO2 37 Base Excess 10 H O2 Saturation 98 O2 % 4.0 ABG pCO2 58.2 H ABG pO2 106 H O2 Delivery Device Cannula Vent Mode Not entered Radiography Diagnostic Testing: Radiology Impression Chest X-Ray 07/13/24 11:15 IMPRESSION: Vascular congestion. Findings suggestive of scarring at the lung bases more prominent on the right side. Multiple healed left rib fractures. Electronically Signed: Ayad Sexton MD at 11:49 EDT , Chest CTA 07/13/24 12:56 IMPRESSION: No evidence of pulmonary embolism. Bibasilar infiltrates as described. Prior thoracic and lumbar fusion as described with evidence of demineralization and deformity and loss of height of multiple vertebrae and ribs. Multiple myeloma should be ruled out. Electronically Signed: Ayad Sexton MD at 14:24 EDT , Physical Exam Narrative Seen and examined. Patient very short of breath. On BiPAP. Patient off BiPAP for 5 to 10 minutes for meal. Physical exam General: alert and awake but orientation cannot be ascertained patient on BiPAP HEENT: Atraumatic, PERRLA, EOMI, Normocephalic Oral: No Gingival or Mucosal Lesions/ Ulcerations Neck: Supple, No JVD, Negative Carotid Bruits Chest wall/Lungs: Air entry diminished in bilateral lung bases. Bilateral expiratory rhonchi. On BiPAP. Dyspnea at rest Cardiovascular: Irregular rhythm, A-fib, Normal S1, Normal S2, No M/G/R Abdomen: Bowel Sounds Present, Soft, Non Tender, Non-Distended : No dysuria. No renal angle tenderness. No suprapubic tenderness. Extremities: No edema, Capillary Refill Less than 3 Seconds Skin: Chronic grayish discoloration of lower legs suggestive of venous edema. Mild edema Musculoskeletal: left leg is tender. No Tenderness to Palpation of Joints or Extremities Neurological: Cranial nerves II-XII grossly intact, DTR 2+/4. No acute focal neurological deficit. Psych/Mental Status: Flat affect Assessment & Plan Assessment/Plan (1) Acute hypoxemic respiratory failure: (2) Pneumonia of both lower lobes: (3) Hypokalemia: (4) Left leg cellulitis: PLAN: Plan 69-year-old gentleman was admitted in chills, cough, sputum production, respiratory distress, mottled appearance short of breath and was admitted in ICU on BiPAP. Acute hypoxic respiratory failure secondary to volume overload/right lower lobe pneumonia: Chest x-ray and chest CTA individually reviewed. No evidence of pulmonary embolism. Bibasilar infiltrates present. Has thoracic and lumbar fusion with hardware. Continue vancomycin and Zosyn and azithromycin to cover MRSA, GNR including Pseudomonas and atypicals. COVID-19 PCR negative. Urinary antigens are negative. Respiratory panel negative. Gram stain pending. Continue incentive spirometry and PEP and Mucinex. Patient on BiPAP/NIPPV Microbiology Past 72 Hours 07/14/24 09:20 Mucosa - Nose Coronavirus COVID-19 PCR - Final 07/14/24 04:29 Urine, Random Legionella Antigen - Final 07/14/24 04:29 Urine, Random Streptococcus pneumoniae Antigen (M - Final 07/13/24 16:35 Mucosa - Nasopharyngeal Respiratory Panel (PCR) - Final 07/13/24 21:54 Nasal Secretion SARS-CoV-2 Antigen (Rapid) - Final Laboratory Results 07/13/24 12:05: Lactic Acid 1.1 07/13/24 13:35: Troponin I High Sens 17 07/14/24 04:15: WBC 8.4, RBC 2.40 L, Hgb 8.4 L, Hct 26.5 L, MCV 110.4 H, MCH 35.0 H, MCHC 31.7 L, RDW Std Deviation 61.2 H, RDW Coeff of Justine 14.9 H, Plt Count 111 L, MPV 9.1, Immature Gran % (Auto) 0.700, Neut % (Auto) 81.1 H, Lymph % (Auto) 7.8 L, Storey % (Auto) 9.6, Eos % (Auto) 0.6, Baso % (Auto) 0.2, Absolute Neuts (auto) 6.8, Absolute Lymphs (auto) 0.66 L, Nucleated RBC % 0, Sodium 135 L, Potassium 3.4 L, Chloride 96 L, Carbon Dioxide 34.0 H, Anion Gap 5, BUN 31 H, Creatinine 3.29 H, Estim Creat Clear Calc 25.58, Est GFR (MDRD) Af Amer 24 L, Est GFR (MDRD) Non-Af 20 L, BUN/Creatinine Ratio 9.4 L, Glucose 87, Calcium 9.3, Phosphorus 2.7, Magnesium 1.6, Total Bilirubin 0.50, AST 6 L, ALT 9 L, Alkaline Phosphatase 112, Total Protein 4.6 L, Albumin 1.9 L, Globulin 2.7, Albumin/Globulin Ratio 0.7 L Left lower extremity cellulitis: Left leg is very tender. Covered with antibiotics as mentioned above. Venous duplex is ordered. Patient is on anticoagulant. Wound nurse to follow Hypokalemia -P.o. potassium given emergency department Serum magnesium 1.6 phosphorus 2.7. Patient is on hemodialysis. Potassium 3.4. End-stage renal disease -HD dependent -Continue home sevelamer -Consult nephrology -Patient is not compliant with diet -Patient does appear to be somewhat volume overloaded on exam Chronic macrocytic anemia, multifactorial including CKD and chronic disease -H&H 8.4/26.5 decreased from 9.7/30.5%. Monitor CBC. 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 -Continue Eliquis History of A-fib/flutter -Patient is on no rate controlling medications as his fib/flutter is not conjoined with RVR -Continue Eliquis Hypertension -Medications have not yet been verified for hypertension -Hold all antihypertensives -Blood pressures are currently on the low side -As needed hydralazine for systolic blood pressure greater than 160 Aortic aneurysm -Stable ascending aortic aneurysm noted on most recent CTA -4.4 cm -Control blood pressure -Recommend outpatient follow-up FELA -Will transition nocturnal CPAP once off BiPAP COPD -Patient had irreversibly moderately severe mixed ventilatory defect with symmetric reduction in diffusing capacity noted on his PFTs from March 2023 -FEV1 was 54% predicted -Nebulizers as above -Recommend outpatient follow-up with pulmonary medicine after discharge Depression/suicidal ideation -Continue home bupropion -Case management consulted -Patient has no current plan DVT prophylaxis -Continue apixaban CODE STATUS -Full code verified at admission Charges/Coding Visit Charges Inpatient E&M: 39636 Subs Hosp L3
[2024-07-14] MEDS: Senna/Docusate Sodium 1 Tablet 2 TABLET PO (09:16)
[2024-07-14] MEDS: Baclofen 10 MG Tablet PO (09:17)
[2024-07-14] MEDS: APIXABAN 5 MG TABLET PO ×2 (09:17→20:15)
[2024-07-14] MEDS: guaiFENesin 1,200 MG Tablet 1200 MG PO ×2 (09:17→20:15)
[2024-07-14] MEDS: buPROPion 75 MG Tablet PO (09:18)
[2024-07-14] MEDS: Escitalopram Oxalate 20 MG Tablet PO (09:18)
[2024-07-14] MEDS: SEVELAMER CARBONATE 800 MG TABLET PO ×3 (09:18→20:15)
[2024-07-14] MEDS: Colestipol 1 GM TABLET PO (09:18)
--- NOTE | 2024-07-14 09:31 | WOUNDNOTE ---
Was asked to see patient for discoloration to the LLE. there are no open wounds noted. 2 small scabbed over wounds noted. no eryrhema. appears more purple in color. patient does c/o some discomfort. will monitor but no need for wound care at this time.
[2024-07-14] MEDS: Azithromycin 500 MG in Dextrose 5%-Water (250mL Bag) 250 ML 250 MG IV (09:33)
--- NOTE | 2024-07-14 09:48 | VDLE_ITS ---
Reason For Study: BLE Pain RIGHT LEFT GSV is normal. GSV is normal. CFV is compressible, spontaneous, phasic, CFV is compressible, spontaneous, phasic, competent and demonstrates normal competent, and demonstrates normal augmentation. augmentation. FV is compressible, spontaneous, phasic, FV is compressible, spontaneous, phasic, competent and demonstrates normal competent and demonstrates normal augmentation. augmentation. POP V is compressible, spontaneous, phasic, POP V is compressible, spontaneous, phasic, competent and demonstrates normal competent and demonstrates normal augmentation. augmentation. T/P Trunk is compressible. T/P Trunk is compressible. PTV is compressible. PTV is compressible. RT PerV is compressible. LT PerV is compressible. Procedure This is a venous duplex using B-mode, color flow and spectral Doppler. Exam performed portable in ICU/CCU. The exam was diagnostic. The study was technically difficult. A preliminary report was called and/or faxed to [employer]. VL/Venous Duplex US - Ramon Extrem Interpretation Summary Deep veins of the lower extremities are bilaterally patent and compressible seg mentally. There is no evidence of deep vein thrombosis on either side. Valvular competence appears in tact within the proximal deep venous systems bilaterally. The great saphenous veins appear bila terally patent and compressible segmentally. Ordering Physician: Keith Pink Referring Physician: Arleen Hwang Performed By: Jordan Sim, RVT
--- NOTE | 2024-07-14 11:44 | CASEMGMT ---
TONY JOVEL Assessment Face to Face with patient for initial transition planning/care coordination assessment. TONY JOVEL introduced self and role at [facility], pt voices understanding. Pt is A&Ox4 and is resting comfortably in bed and is calm. Care providers, pharmacy, and demographics verified. Admitting dx: Acute Hypoxic RF LACE Strata: 3 PCP: Arleen Hwang Specialists: Joceline (Nephro), Nellie (Neurosurgeon), Cleopatra (Bench Machine Operator), Urologist (Pt is unsure of the name). Preferred Pharmacy: [facility] Insurance: [facility] Prescription Benefit: Yes LNOK: Lidia Mars (Friend) Living Arrangements: Pt lives alone in a single story home with a basement with a chair lift and 2 steps to enter with a handrail. Pt states that there are 5 steps to to get to the garage with a handrail. ADLs/IADLs: Pt requires assistance. Pt is active with Private Duty Aides/ Caregivers that come every day. Pt states that there are about 5 caregivers that rotate help. Pt also states that a nurse comes to his home once per week (Usually on Wednesdays) through the [employer]. Transportation: [place], Caregivers. Denies concerns at this time DME: Home Oxygen through [employer]. Pt current orders states 3L continuous and 4L with exertion. Pt bleeds in the oxygen through a BiPAP @ [facility]. Pt states that he got his BiPAP through his insurance and that [employer] did not supply this. Pt reports that he has a concentrator, portable tanks, and a pulse ox at home. Pt states that one of his caregivers will be able to bring in a tank at time of DC. Pt also states that he has the following DME: FWW x2, W/C x2, BP Monitor, thermometer, shower chair, raised toilet seat, and grab bars. HHC/SNF: Per Arely at [facility], the pt was supposed to start care through [facility] today, however the pt was admitted to the hospital. Pt has a Hx of multiple SNF stays including [facility], [facility], and [facility]. HD: Pt attends OP HD at [facility] in [place] q //S at 0900. Pt states that [employer] provides this transportation. Pt?s goal: Home with HHC Plan: TBD. Anticipate Home with HHC vs SNF. However, at this time, the pt is refusing SNF needs and wants to eventually DC home with HHC. PT/OT evaluations are pending. Pt denies wanting to review a list of local in-network HHC agencies and states that he would prefer to go through [facility] still. Pt denies further questions or concerns at this time. CM and SW to follow. Homero Gauthier RN C
--- NOTE | 2024-07-14 11:50 | WOUNDNOTE ---
skin photo: left lower leg
--- NOTE | 2024-07-14 11:58 | CASEMGMT ---
Social Work SW met w/pt, pt started the POA for healthcare document. SW called pt's contacts and attained addresses for the document. LW will be deferred at this time. Pt wants to think about whether or not to put down his friend Yvonne as the financial guardian, SW will revisit this w/pt later in his hospital stay and have pt complete the document. Pt is listing his friend Yvonne as POA and his friend Lidia as the alternate. BARON Pro
[2024-07-14] MEDS: metroNIDAZOLE 500 MG Tablet PO ×2 (12:41→20:13)
[2024-07-14] MEDS: Ferrous Sulfate 325 MG Tablet PO (12:42)
[2024-07-14] MEDS: Cefepime HCl 1 GM in 0.9% Normal Saline (50mL MB+) 50 ML IV (14:02)
--- NOTE | 2024-07-14 14:39 | CON.PCM.RE_ITS ---
Assessment & Plan Assessment/Plan (1) ESRD (end stage renal disease): PLAN: Currently on hemodialysis Saturday, , Saturday schedule. Last dialysis was Saturday, uneventful. Biopsy-proven ATN. Surprisingly no recovery even though he had normal baseline creatinine. Recently urine output has improved. Creatinine is still on the higher side. For now we will maintain dialysis on same schedule. Discussed with dialysis staff. HPI Consult Data Date of Consult: 07/14/24 HPI Narrative Reason for Consultation: ESRD HPI Narrative: ZIYAD BAER, is a 69 M who presents To the hospital with shortness of breath, cough, lower extremity cellulitis. He has known history of ATN related renal failure, has been on dialysis for almost a year now. Biopsy-proven ATN. Surprisingly no recovery. Recently he says urine output has increased. Last creatinine from dialysis unit was 3.6. Admitted with above complaints. Being treated for pneumonia. And cellulitis. Looks comfortable. [facility] Medical History Essential hypertension Atrial flutter Hx of pulmonary embolus Obstructive sleep apnea FELA (obstructive sleep apnea) Hypertension Cancer Psoriasis Home Medications ?Medication ?Instructions ?Recorded ?Last Taken ?Type amlodipine 10 mg tablet 10 mg PO QHS Blood pressure 10/14/19 10/17/20 History escitalopram oxalate 20 mg tablet 20 mg PO DAILY Check with primary 10/14/19 10/22/22 History doctor bupropion HCl 75 mg tablet 75 mg PO DAILY Depression 09/18/22 Unknown History bethanechol chloride 25 mg tablet 25 mg PO TID 30 days #90 tabs 01/07/23 Unknown Rx albuterol sulfate 90 mcg/actuation 2 puff inhalation Q6H sob 01/14/23 Unknown History aerosol inhaler acetaminophen 325 mg tablet 650 mg (2 x 325 mg) PO Q6H PRN PRN 01/17/23 Unknown Rx Pain 1-10 Or Fever>100.7 #0 tabs ferrous sulfate 325 mg (65 mg 325 mg PO DAILY@1200 Check with 03/08/23 Unknown History iron) tablet (FeroSul) primary doctor fluticasone propionate 50 2 spray NASAL DAILY Check with 03/08/23 Unknown History mcg/actuation nasal primary doctor spray,suspension lidocaine 5 % topical patch 1 patch topical 0800 Check with 03/08/23 Unknown History primary doctor magnesium chloride 64 mg 250 mg PO DAILY Check with primary 03/08/23 Unknown History (magnesium chloride) doctor tablet,delayed release (Mag 64) vit A 300 mcg-C 200 mg-E 27 1 cap PO DAILYCM Check with 03/08/23 Unknown History mg-lutein 2 mg and minerals tablet primary doctor (Healthy Eyes) apixaban 5 mg tablet (Eliquis) 5 mg PO BID 30 days #60 tabs 03/13/23 Unknown Rx sennosides 8.6 mg-docusate sodium 2 tab PO BID #0 tabs 03/13/23 Unknown Rx 50 mg tablet (Stool Softener-Stimulant Laxative) cholecalciferol (vitamin D3) 1,250 1,250 mcg PO QWEEK 06/19/23 Unknown History mcg (50,000 unit) capsule colestipol 1 gram tablet 1 g PO DAILY 06/19/23 Unknown History ketoconazole 2 % topical cream 1 applic topical DAILY 06/19/23 Unknown History lisinopril 40 mg tablet 40 mg PO QHS 06/19/23 Unknown History teriparatide 20 mcg/dose (600 20 mcg subcut DAILY 06/19/23 Unknown History mcg/2.4 mL) subcutaneous pen injector (Forteo) baclofen 10 mg tablet 10 mg PO TID PRN muscle spasm 07/26/23 Unknown History carvedilol 25 mg tablet 25 mg PO BID Check with primary 07/26/23 Unknown History doctor cyclobenzaprine 5 mg tablet 5 mg PO TID PRN muscle spasm 07/26/23 Unknown History furosemide 20 mg tablet 20 mg PO DAILY PRN edema 07/26/23 Unknown History potassium chloride 10 mEq 10 meq PO DAILY PRN WITH LASIX 07/26/23 Unknown History tablet,extended release sildenafil 100 mg tablet 100 mg PO DAILY PRN SEE PCP 07/26/23 Unknown History cefuroxime axetil 500 mg tablet 500 mg PO BID #20 tabs 06/01/24 Unknown Rx metronidazole 500 mg tablet 500 mg PO BID #20 tabs 06/01/24 Unknown Rx ondansetron 8 mg disintegrating 8 mg PO Q8H PRN nausea and 06/01/24 Unknown Rx tablet vomiting #20 tabs budesonide-formoterol HFA 160 2 puff inhalation BID 07/13/24 Unknown History mcg-4.5 mcg/actuation aerosol inhaler gabapentin 300 mg capsule 300 mg PO DAILY 07/13/24 Unknown History losartan 25 mg tablet 25 mg PO DAILY 07/13/24 Unknown History oxycodone-acetaminophen 5 mg-325 1 tab PO Q8H PRN PRN pain 07/13/24 Unknown History mg tablet sevelamer carbonate 800 mg tablet 800 mg PO 4X/DAY 07/13/24 Unknown History tizanidine 2 mg tablet 2 mg PO TID PRN 07/13/24 Unknown History vitamin B complex-vitamin C-folic 1 tab PO DAILY 07/13/24 Unknown History acid 0.8 mg tablet (Shannon-Dia) Allergy/AdvReac Type Severity Reaction Status Date / Time lorazepam Allergy Other Verified 07/13/24 10:43 Penicillins Allergy Itching Verified 07/13/24 10:43 poison ever extract Allergy Itching Verified 07/13/24 10:43 Family History Mother CVA (cerebral vascular accident) Father CAD (coronary artery disease) Hypertension Cancer Prostate Other Brain aneurysm Heart disease Prostate CA Surgical History Status post laminectomy History of carpal tunnel surgery History of herniorrhaphy Hx of cholecystectomy Hx of appendectomy Social History household members: spouse Smoking Status: Former smoker alcohol intake: current alcohol intake frequency: 3 or more drinks per day substance use type: does not use ROS ROS Narrative negative except above Physical Exam Narrative Alert awake oriented x 3 no obvious distress no pallor no icterus no JVD s1s2 no murmurs lungs clear abdomen soft no organomegaly no edema no cyanosis Lab / Micro Data 07/14/24 04:15 07/14/24 04:15 Labs: Laboratory Results - last 24 hr 07/14/24 04:15: WBC 8.4, RBC 2.40 L, Hgb 8.4 L, Hct 26.5 L, MCV 110.4 H, MCH 35.0 H, MCHC 31.7 L, RDW Std Deviation 61.2 H, RDW Coeff of Justine 14.9 H, Plt Count 111 L, MPV 9.1, Immature Gran % (Auto) 0.700, Neut % (Auto) 81.1 H, Lymph % (Auto) 7.8 L, [place] % (Auto) 9.6, Eos % (Auto) 0.6, Baso % (Auto) 0.2, Absolute Neuts (auto) 6.8, Absolute Lymphs (auto) 0.66 L, Nucleated RBC % 0, Sodium 135 L , Potassium 3.4 L, Chloride 96 L, Carbon Dioxide 34.0 H, Anion Gap 5, BUN 31 H, Creatinine 3.29 H, Estim Creat Clear Calc 25.58, Est GFR (MDRD) Af Amer 24 L, E st GFR (MDRD) Non-Af 20 L, BUN/Creatinine Ratio 9.4 L, Glucose 87, Calcium 9.3, Phosphorus 2.7, Magnesium 1.6, Total Bilirubin 0.50, AST 6 L, ALT 9 L, Alkaline Phosphatase 112, Total Protein 4.6 L, Albumin 1.9 L, Globulin 2.7, A lbumin/Globulin Ratio 0.7 L Micro: Microbiology 07/14/24 05:08 Sputum, Expectorated/Coughed Gram Stain - Final 07/14/24 05:08 Sputum, Expectorated/Coughed Respiratory Culture - Final 07/14/24 09:20 Mucosa - Nose Coronavirus COVID-19 PCR - Final 07/14/24 04:29 Urine, Random Legionella Antigen - Final 07/14/24 04:29 Urine, Random Streptococcus pneumoniae Antigen (M - Final 07/13/24 16:35 Mucosa - Nasopharyngeal Respiratory Panel (PCR) - Final 07/13/24 21:54 Nasal Secretion SARS-CoV-2 Antigen (Rapid) - Final
--- NOTE | 2024-07-14 15:59 | CASEMGMT ---
Addendum entered by Nita Buckner 07/17/24 11:42: Pt primary agent is Yvonne Saldaña. Pt secondary agent is Lidia Salgado. Copies were provided to Lidia as Yvonne was on vacation and pt agreeable that Lidia take both copies. TEJAS Cruz Original Note: Social Work- SW completed HCPOA with pt. SW provided original to pt, copies to friend & agent, Lidia, and placed a copy on the chart. TEJAS Cruz
[2024-07-14] MEDS: 0.9% Normal Saline 1,000 ML IV.SOLN. 1000 ML OPERA.SITE (16:51)
[2024-07-14] MEDS: Heparin 10,000 UNITS/10 ML Vial IV (16:56)
[2024-07-14] MEDS: Vancomycin HCl 750 MG in 0.9% Normal Saline (250mL Bag) 250 ML 250 MG IV (20:13)
--- NOTE | 2024-07-14 20:46 | NURSING ---
1944- RN bedside to assess patient. Pill bottle present on patient's bedside table labeled Tizanidine 2mg. Pt reports he has not taken any pills from the bottle but his family member brought it in so he could have it. RN informed pt that he shouldn't take any pills that aren't given to him by a nurse while in the hospital and that everything must be ordered and approved by dr. RN will message dr and try to get his home meds ordered if possible. At this time, RN took pills from bedside and placed in a home meds envelope then locked up in the designated med room drawer.
--- NOTE | 2024-07-14 21:29 | PCM.HOSP.N ---
Hospitalist Note Patient requesting his home muscle relaxant and family brought in his zanaflex. On home list currently flexeril listed but appears not to have had med rec done. Given his presentation will given low dose x 1 to trial of zanaflex only as already also on chronic baclofen.
[2024-07-15] VITALS (31 sets, daily range): BP systolic 81–136; BP diastolic 56–103; PULSE 65–110; RESP 12–30; TEMP 36–36.8; O2SAT 86–100; BMI 28.5
[2024-07-15 04:35] LABS: Absolute Lymphocyte Count 0.68 X10^3/uL (0.83-4.51); Absolute Neutrophil Count 5.8 X10^3/uL (2.0-7.7); Basophil# 0.02 X10^3/uL; Basophil% 0.3 % (0-1); Eosinophil# 0.05 X10^3/uL; Eosinophils% 0.7 % (0-5); Hematocrit 26.7 % (40-54); Hemoglobin 8.3 g/dL (13.0-16.5); Lymphocyte # 0.68 X10^3/ul (0.83-4.51); Lymphocyte % 9.1 % (19-41); Mean Corp Hgb Conc 31.1 g/dL (32-36); Mean Corpuscular Hgb 34.3 pg (27.0-32.0); Mean Corpuscular Volume 110.3 fL (80-94); Mean Platelet Vol. 8.7 fl (6.2-12.0); Monocyte% 10.7 % (0-10); NRBC Flagged by Analyzer 0 % (0-5); Neutrophil # 5.82 X10^3/uL (2.7-7.7); Platelet Count 104 K/mm3 (150-450); Red Blood Count 2.42 M/mm3 (4.6-6.2); White Blood Count 7.5 K/mm3 (4.4-11.0)
[2024-07-15 04:59] LABS: ALB/GLOB Ratio 0.7 RATIO (0.9-2.4); AST(SGOT) 5 U/L (15-37); Alanine Aminotransfer ALT/SGPT 10 U/L (16-61); Albumin, Serum 1.9 g/dL (3.2-5.0); Alkaline Phosphatase 108 U/L (45-117); Anion Gap 5 (5-15); BUN 26 mg/dL (7-18); BUN/Creat Ratio 9.3 RATIO (10-20); Calcium,Total 9.9 mg/dL (8.5-10.1); Chloride 101 mmol/L (98-107); Creatinine, Serum 2.81 mg/dL (0.70-1.30); EST Glomerular Filtration Rate 24 mL/min (>60); Est Glom Filt Rate - Afr Amer 29 mL/min (>60); Estimated Creatinine Clearance 29.68 ml/min; Globulin 2.9 g/dL (2.2-4.2); Glucose 88 mg/dL (74-106); Potassium 3.2 mmol/L (3.5-5.1); Protein, Total 4.8 g/dL (6.4-8.2); Sodium Level 138 mmol/L (136-145)
[2024-07-15] MEDS: 0.9% Saline Lock 10 ML Syringe IV ×2 (05:26→21:26)
[2024-07-15] MEDS: Ondansetron 4 MG/2 ML Vial IV (05:26)
--- NOTE | 2024-07-15 07:47 | PN.HOSP_ITS ---
Reason for Visit Reason for Visit: Diagnoses Hypokalemia (07/13/24) Pneumonia, unspecified organism (07/13/24) Acute respiratory failure with hypoxia (07/13/24) Cellulitis of left lower limb (07/13/24) End stage renal disease (07/13/24) Objective Data Objective Data Vital Signs: Vital Signs Temp Pulse Resp BP Pulse Ox O2 Del Method O2 Flow Rate 98.2 F 100 15 119/87 H 94 Nasal Cannula 4 07/15/24 04:00 07/15/24 06:00 07/15/24 06:00 07/15/24 06:00 07/15/24 06:00 07/15/24 06:00 07/15/24 06:00 FiO2 30 07/15/24 03:00 Oxygen Flow Rate (L/min) 4 Oxygen Delivery Method Nasal Cannula Weight: 204 lb 5.896 oz Body Mass Index (BMI) 28.5 Intake & Output: Intake and Output for Last 24 Hours 07/13/24 07/14/24 07/15/24 23:59 23:59 23:59 Intake Total 835 / 835 570 / 570 Output Total 150 / 150 2960 / 2960 Balance 685 / 685 -2390 / -2390 -20 / -20 Lab / Micro Data 07/15/24 04:19 07/15/24 04:19 Labs: Laboratory Results - last 24 hr 07/15/24 04:19: WBC 7.5, RBC 2.42 L, Hgb 8.3 L, Hct 26.7 L, MCV 110.3 H, MCH 34.3 H, MCHC 31.1 L, RDW Std Deviation 61.0 H, RDW Coeff of Justine 15.0 H, Plt Count 104 L, MPV 8.7, Immature Gran % (Auto) 1.200 H, Neut % (Auto) 78.0 H, L ymph % (Auto) 9.1 L, [place] % (Auto) 10.7 H, Eos % (Auto) 0.7, Baso % (Auto) 0.3, Absolute Neuts (auto) 5.8, Absolute Lymphs (auto) 0.68 L, Nucleated RBC % 0, Sodium 138, Potassium 3.2 L, Chloride 101, Carbon Dioxide 32.0, Anion Gap 5, BUN 26 H, Creatinine 2.81 H, Estim Creat Clear Calc 29.68, Est GFR (MDRD) Af Amer 29 L, Est GFR (MDRD) Non-Af 24 L, BUN/Creatinine Ratio 9.3 L, Glucose 88, Calcium 9.9, Total Bilirubin 0.40, AST 5 L, ALT 10 L, Alkaline Phosphatase 108, Total Protein 4.8 L, Albumin 1.9 L, Globulin 2.9, Albumin/Globulin Ratio 0.7 L Micro: Microbiology 07/14/24 05:08 Sputum, Expectorated/Coughed Gram Stain - Final 07/14/24 05:08 Sputum, Expectorated/Coughed Respiratory Culture - Final 07/14/24 09:20 Mucosa - Nose Coronavirus COVID-19 PCR - Final 07/14/24 04:29 Urine, Random Legionella Antigen - Final 07/14/24 04:29 Urine, Random Streptococcus pneumoniae Antigen (M - Final 07/13/24 16:35 Mucosa - Nasopharyngeal Respiratory Panel (PCR) - Final 07/13/24 21:54 Nasal Secretion SARS-CoV-2 Antigen (Rapid) - Final Radiography Diagnostic Testing: Radiology Impression Venous Doppler Study 07/14/24 09:48 Interpretation Summary Deep veins of the lower extremities are bilaterally patent and compressible segmentally. There is no evidence of deep vein thrombosis on either side. Valvular competence appears intact within the proximal deep venous systems bilaterally. The great saphenous veins appear bilaterally patent and compressible segmentally. Ordering Physician: Keith Pink Referring Physician: Arleen Hwang Performed By: Jordan Sim, ANURADHAT Physical Exam Narrative Seen and examined. Patient very short of breath. Was on BiPAP about 3.5 yesterday on BiPAP. Respiratory status better than yesterday. No fever on 6 L of oxygen. Physical exam General: alert and awake but orientation cannot be ascertained patient on BiPAP HEENT: Atraumatic, PERRLA, EOMI, Normocephalic Oral: No Gingival or Mucosal Lesions/ Ulcerations Neck: Supple, No JVD, Negative Carotid Bruits Chest wall/Lungs: Air entry diminished in bilateral lung bases. Bilateral expiratory rhonchi. On BiPAP. Dyspnea at rest Cardiovascular: Irregular rhythm, A-fib, Normal S1, Normal S2, No M/G/R Abdomen: Bowel Sounds Present, Soft, Non Tender, Non-Distended : No dysuria. No renal angle tenderness. No suprapubic tenderness. Extremities: Mild legs edema, Capillary Refill Less than 3 Seconds Skin: Chronic grayish discoloration of lower legs suggestive of venous edema. IV line associated bruises in forearm. Mild edema Musculoskeletal: left leg is tender. No Tenderness to Palpation of Joints or Extremities. No DVT Neurological: Cranial nerves II-XII grossly intact, DTR 2+/4. No acute focal neurological deficit. Psych/Mental Status: Flat affect Assessment & Plan Assessment/Plan (1) Acute hypoxemic respiratory failure: (2) Pneumonia of both lower lobes: (3) Hypokalemia: (4) Left leg cellulitis: PLAN: Plan 69-year-old gentleman was admitted in chills, cough, sputum production, respiratory distress, mottled appearance short of breath and was admitted in ICU on BiPAP. Acute hypoxic respiratory failure secondary to volume overload/right lower lobe pneumonia: Chest x-ray and chest CTA individually reviewed. No evidence of pulmonary embolism. Bibasilar infiltrates present. Has thoracic and lumbar fusion with hardware. Continue vancomycin and Zosyn and azithromycin to cover MRSA, GNR including Pseudomonas and atypicals. COVID-19 PCR negative. Urinary antigens are negative. Respiratory panel negative. Gram stain pending. Continue incentive spirometry and PEP and Mucinex. Patient on BiPAP/NIPPV 07/15: Patient still short of breath and required 6 L of oxygen Left lower extremity cellulitis: Left leg is very tender. Covered with antibiotics as mentioned above. Venous duplex is ordered. Patient is on anticoagulant. Wound nurse to follow 07/15: Left leg feels better and patient can lift although weak, strength 4/5 at both knee joints Hypokalemia -P.o. potassium given emergency department Serum magnesium 1.6 phosphorus 2.7. Patient is on hemodialysis. Potassium 3.4. 07/15: Mild hypokalemia but patient on hemodialysis. End-stage renal disease -HD dependent -Continue home sevelamer -Consult nephrology -Patient is not compliant with diet -Patient does appear to be somewhat volume overloaded on exam Chronic macrocytic anemia, multifactorial including CKD and chronic disease -H&H 8.4/26.5 decreased from 9.7/30.5%. Monitor CBC. 07/15: H&H 8.3/26%. Immature granulocytes 1.2%. Platelet count 104,000. Anemia workup ordered. 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 -Continue Eliquis History of A-fib/flutter -Patient is on no rate controlling medications as his fib/flutter is not conjoined with RVR -Continue Eliquis Hypertension -Medications have not yet been verified for hypertension -Hold all antihypertensives -Blood pressures are currently on the low side -As needed hydralazine for systolic blood pressure greater than 160 Aortic aneurysm -Stable ascending aortic aneurysm noted on most recent CTA -4.4 cm -Control blood pressure -Recommend outpatient follow-up FELA -Will transition nocturnal CPAP once off BiPAP COPD -Patient had irreversibly moderately severe mixed ventilatory defect with symmetric reduction in diffusing capacity noted on his PFTs from March 2023 -FEV1 was 54% predicted -Nebulizers as above -Recommend outpatient follow-up with pulmonary medicine after discharge Depression/suicidal ideation -Continue home bupropion -Case management consulted -Patient has no current plan DVT prophylaxis -Continue apixaban CODE STATUS -Full code verified at admission Charges/Coding Visit Charges Inpatient E&M: 38609 Subs Hosp L2
[2024-07-15] MEDS: Baclofen 10 MG Tablet PO ×2 (08:05→15:42)
[2024-07-15] MEDS: oxyCODONE 5 MG Tablet PO ×3 (08:05→21:26)
[2024-07-15] MEDS: Ipratropium/Albuterol Sulfate 3 ML AMPUL.NEB INHALATION ×3 (09:14→19:05)
[2024-07-15] MEDS: Budesonide Respules 0.5 MG/2 ML AMPUL.NEB. INHALATION ×2 (09:14→19:05)
[2024-07-15 09:27] LABS: Platelet Count 114 K/mm3 (150-450); RET-HE 32.8 pg (30-35); Reticulocyte Count 1.53 % (0.5-1.5)
[2024-07-15 09:28] LABS: Ferritin 1610 ng/mL (26-388); Iron 30 ug/dL (65-175); Iron Binding Capacity,Total 47 ug/dL (250-450); PERCENT IRON SATURATION 63.8 % (15.0-55.0)
[2024-07-15] MEDS: Colestipol 1 GM TABLET PO (09:58)
[2024-07-15] MEDS: guaiFENesin 1,200 MG Tablet 1200 MG PO ×2 (09:58→21:13)
[2024-07-15] MEDS: Escitalopram Oxalate 20 MG Tablet PO (09:58)
[2024-07-15] MEDS: APIXABAN 5 MG TABLET PO ×2 (09:58→21:12)
[2024-07-15] MEDS: buPROPion 75 MG Tablet PO (09:58)
[2024-07-15] MEDS: Ferrous Sulfate 325 MG Tablet PO (09:59)
--- NOTE | 2024-07-15 10:01 | PCM.PN.REN ---
Subjective Subjective Resting in bed. No overnight events. Reports feeling better today. Objective Data Objective Data Vital Signs: Vital Signs Temp Pulse Resp BP Pulse Ox O2 Del Method O2 Flow Rate 97.5 F L 91 18 124/97 H 98 Nasal Cannula 6 07/15/24 08:09 07/15/24 09:14 07/15/24 09:14 07/15/24 08:09 07/15/24 08:09 07/15/24 08:09 07/15/24 08:09 FiO2 30 07/15/24 03:00 Oxygen Flow Rate (L/min) 6 Oxygen Delivery Method Nasal Cannula Weight: 92.7 kg Body Mass Index (BMI) 28.5 Intake & Output: Intake and Output for Last 24 Hours 07/13/24 07/14/24 07/15/24 23:59 23:59 23:59 Intake Total 835 / 835 570 / 570 Output Total 150 / 150 2960 / 2960 Balance 685 / 685 -2390 / -2390 -20 Lab / Micro Data 07/15/24 04:19 07/15/24 04:19 Labs: Laboratory Results - last 24 hr 07/15/24 04:19: WBC 7.5, RBC 2.42 L, Hgb 8.3 L, Hct 26.7 L, MCV 110.3 H, MCH 34.3 H, MCHC 31.1 L, RDW Std Deviation 61.0 H, RDW Coeff of Justine 15.0 H, Plt Count 104 L, MPV 8.7, Immature Gran % (Auto) 1.200 H, Neut % (Auto) 78.0 H, Lymph % (Auto) 9.1 L, [place] % (Auto) 10.7 H, Eos % (Auto) 0.7, Baso % (Auto) 0.3, Absolute Neuts (auto) 5.8, Absolute Lymphs (auto) 0.68 L, Nucleated RBC % 0, Retic Count 1.53 H, Immature Retic Fraction 41.50 H, Retic Hgb Equivalent 32.8, Sodium 138, Potassium 3.2 L, Chloride 101, Carbon Dioxide 32.0, Anion Gap 5, BUN 26 H, Creatinine 2.81 H, Estim Creat Clear Calc 29.68, Est GFR (MDRD) Af Amer 29 L, Est GFR (MDRD) Non-Af 24 L, BUN/Creatinine Ratio 9.3 L, Glucose 88, Calcium 9.9, Iron 30 L, TIBC 47 L, Iron Saturation 63.8 H, Ferritin 1610 H, Total Bilirubin 0.40, AST 5 L, ALT 10 L, Alkaline Phosphatase 108, Total Protein 4.8 L, Albumin 1.9 L, Globulin 2.9, Albumin/Globulin Ratio 0.7 L Micro: Microbiology 07/14/24 05:08 Sputum, Expectorated/Coughed Gram Stain - Final 07/14/24 05:08 Sputum, Expectorated/Coughed Respiratory Culture - Final 07/14/24 09:20 Mucosa - Nose Coronavirus COVID-19 PCR - Final 07/14/24 04:29 Urine, Random Legionella Antigen - Final 07/14/24 04:29 Urine, Random Streptococcus pneumoniae Antigen (M - Final 07/13/24 16:35 Mucosa - Nasopharyngeal Respiratory Panel (PCR) - Final 07/13/24 21:54 Nasal Secretion SARS-CoV-2 Antigen (Rapid) - Final Radiography Diagnostic Testing: Radiology Impression Venous Doppler Study 07/14/24 09:48 Interpretation Summary Deep veins of the lower extremities are bilaterally patent and compressible segmentally. There is no evidence of deep vein thrombosis on either side. Valvular competence appears intact within the proximal deep venous systems bilaterally. The great saphenous veins appear bilaterally patent and compressible segmentally. Ordering Physician: Keith Pink Referring Physician: Arleen Hwang Performed By: Jordan Sim, RVT Physical Exam Narrative Alert awake oriented x 3 no obvious distress s1s2 no murmurs lungs clear abdomen soft, nontender Trace nonpitting edema bilateral lower legs. Redness left lower leg Tunneled dialysis catheter dressing clean, dry and intact Assessment & Plan Assessment/Plan (1) ESRD (end stage renal disease): PLAN: - ESRD secondary to biopsy-proven ATN with no noted recovery. Currently on hemodialysis Saturday, , Saturday schedule. Patient tolerated dialysis yesterday with around 3 L fluid removal. No acute indication for [facility] [facility] today. Will likely plan for next dialysis tomorrow with fluid removal as patient/blood pressure tolerates. Patient will have a new lowered dry weight by time of hospital discharge -Left lower extremity cellulitis; IV antibiotic. Venous Duplex no evidence of DVT -Pneumonia; on IV antibiotics. Blood cultures pending. O2 requirements improved now on nasal cannula. -History of hypertension; blood pressures are low side but stable. He is not on any antihypertensives now.
[2024-07-15] MEDS: Azithromycin 500 MG in Dextrose 5%-Water (250mL Bag) 250 ML 250 MG IV (10:04)
[2024-07-15] MEDS: metroNIDAZOLE 500 MG Tablet PO ×2 (14:57→21:13)
[2024-07-15] MEDS: Cefepime HCl 1 GM in 0.9% Normal Saline (50mL MB+) 50 ML IV (14:57)
[2024-07-15] MEDS: SEVELAMER CARBONATE 800 MG TABLET PO (21:13)
[2024-07-16] VITALS (39 sets, daily range): BP systolic 104–288; BP diastolic 71–114; PULSE 61–107; RESP 12–26; TEMP 35.7–36.6; O2SAT 92–100; BMI 28.8; BMI 28.2
[2024-07-16] MEDS: Vancomycin Trough/Random Due 1 LAB MC (04:58)
[2024-07-16 05:05] LABS: Absolute Lymphocyte Count 0.91 X10^3/uL (0.83-4.51); Absolute Neutrophil Count 6.5 X10^3/uL (2.0-7.7); Basophil# 0.01 X10^3/uL; Basophil% 0.1 % (0-1); Eosinophils% 1.2 % (0-5); Hematocrit 28.3 % (40-54); Hemoglobin 8.8 g/dL (13.0-16.5); Lymphocyte # 0.91 X10^3/ul (0.83-4.51); Lymphocyte % 10.8 % (19-41); Mean Corp Hgb Conc 31.1 g/dL (32-36); Mean Corpuscular Hgb 34.5 pg (27.0-32.0); Mean Platelet Vol. 8.4 fl (6.2-12.0); Monocyte# 0.76 X10^3/uL; Monocyte% 9.1 % (0-10); NRBC Flagged by Analyzer 0 % (0-5); Neutrophil # 6.49 X10^3/uL (2.7-7.7); Neutrophil % 77.4 % (47-70); Platelet Count 120 K/mm3 (150-450); RBC Distribution Width CV 15.3 % (11.6-14.6); RBC Distribution Width SD 62.4 fl (35.1-43.9); Red Blood Count 2.55 M/mm3 (4.6-6.2); White Blood Count 8.4 K/mm3 (4.4-11.0)
[2024-07-16 05:23] LABS: ALB/GLOB Ratio 0.7 RATIO (0.9-2.4); AST(SGOT) 3 U/L (15-37); Alanine Aminotransfer ALT/SGPT 9 U/L (16-61); Alkaline Phosphatase 107 U/L (45-117); Anion Gap 4 (5-15); BUN 33 mg/dL (7-18); BUN/Creat Ratio 9.5 RATIO (10-20); Calcium,Total 10.3 mg/dL (8.5-10.1); Chloride 100 mmol/L (98-107); Creatinine, Serum 3.47 mg/dL (0.70-1.30); EST Glomerular Filtration Rate 19 mL/min (>60); Est Glom Filt Rate - Afr Amer 23 mL/min (>60); Estimated Creatinine Clearance 24.04 ml/min; Globulin 2.8 g/dL (2.2-4.2); Glucose 92 mg/dL (74-106); Potassium 3.4 mmol/L (3.5-5.1); Protein, Total 4.8 g/dL (6.4-8.2); Sodium Level 136 mmol/L (136-145)
[2024-07-16] MEDS: metroNIDAZOLE 500 MG Tablet PO ×3 (06:15→22:45)
--- NOTE | 2024-07-16 06:20 | PCM.RX.CS ---
Consult Antibiotic Management Pharmacy has been consulted to manage selected antibiotic: Vancomycin Type of Intervention Type of Consult: Follow-up Labs Labs: Sodium 136 mmol/L (136-145) 07/16/24 04:55 Potassium 3.4 mmol/L (3.5-5.1) L 07/16/24 04:55 Chloride 100 mmol/L (98-107) 07/16/24 04:55 Carbon Dioxide 32.0 mmol/L (21.0-32.0) 07/16/24 04:55 Anion Gap 4 (5-15) L 07/16/24 04:55 BUN 33 mg/dL (7-18) H 07/16/24 04:55 Creatinine 3.47 mg/dL (0.70-1.30) H 07/16/24 04:55 Est GFR (MDRD) Af Amer 23 mL/min (>60) L 07/16/24 04:55 Est GFR (MDRD) Non-Af 19 mL/min (>60) L 07/16/24 04:55 BUN/Creatinine Ratio 9.5 RATIO (10-20) L 07/16/24 04:55 Glucose 92 mg/dL (74-106) 07/16/24 04:55 Random Vancomycin 17.0 ug/mL (0.0-15.0) H 07/16/24 04:55 Microbiology Microbiology: Microbiology 07/14/24 05:08 Sputum, Expectorated/Coughed Gram Stain - Final 07/14/24 05:08 Sputum, Expectorated/Coughed Respiratory Culture - Final 07/14/24 09:20 Mucosa - Nose Coronavirus COVID-19 PCR - Final 07/14/24 04:29 Urine, Random Legionella Antigen - Final 07/14/24 04:29 Urine, Random Streptococcus pneumoniae Antigen (M - Final 07/13/24 16:35 Mucosa - Nasopharyngeal Respiratory Panel (PCR) - Final 07/13/24 21:54 Nasal Secretion SARS-CoV-2 Antigen (Rapid) - Final Pharmacy Plan for Drug Dosing Pharmacy Plan for Drug Dosing: Pharmacy Service will continue to monitor and adjust dosing as required. RANDOM LEVEL 17.0. GIVE 500MG AFTER DIALYSIS AND DRAW RANDOM LEVEL PRIOR TO NEXT DIALYSIS Follow-Up Labs Follow-Up Labs: Trough: Vancomycin Date/Time Labs Ordered Labs to be done on [date and time ordered]: 07/18 @ 0600
[2024-07-16] MEDS: Budesonide Respules 0.5 MG/2 ML AMPUL.NEB. INHALATION ×2 (07:10→19:28)
[2024-07-16] MEDS: Ipratropium/Albuterol Sulfate 3 ML AMPUL.NEB INHALATION ×3 (07:10→19:28)
--- NOTE | 2024-07-16 08:19 | PN.HOSP_ITS ---
Reason for Visit Reason for Visit: Diagnoses Hypokalemia (07/13/24) Pneumonia, unspecified organism (07/13/24) Acute respiratory failure with hypoxia (07/13/24) Cellulitis of left lower limb (07/13/24) End stage renal disease (07/13/24) Objective Data Objective Data Vital Signs: Vital Signs Temp Pulse Resp BP Pulse Ox O2 Del Method O2 Flow Rate 96.9 F L 75 17 150/114 H 97 Bi-pap 4 07/16/24 04:00 07/16/24 07:11 07/16/24 07:11 07/16/24 06:00 07/16/24 06:00 07/16/24 06:00 07/16/24 01:00 FiO2 30 07/16/24 06:00 Oxygen Flow Rate (L/min) 4 Oxygen Delivery Method Bi-pap Weight: 206 lb 2.115 oz Body Mass Index (BMI) 28.8 Intake & Output: Intake and Output for Last 24 Hours 07/14/24 07/15/24 07/16/24 23:59 23:59 23:59 Intake Total 570 / 570 665 / 665 0 / 0 Output Total 2960 / 2960 720 / 720 550 / 550 Balance -2390 / -2390 -55 / -55 -550 / -550 Lab / Micro Data 07/16/24 04:55 07/16/24 04:55 Labs: Laboratory Results - last 24 hr 07/15/24 04:19: Retic Count 1.53 H, Immature Retic Fraction 41.50 H, Retic Hgb Equivalent 32.8, Iron 30 L, TIBC 47 L, Iron Saturation 63.8 H, Ferritin 1610 H 07/16/24 04:55: WBC 8.4, RBC 2.55 L, Hgb 8.8 L, Hct 28.3 L, MCV 111.0 H, MCH 34.5 H, MCHC 31.1 L, RDW Std Deviation 62.4 H, RDW Coeff of Justine 15.3 H, Plt Count 120 L, MPV 8.4, Immature Gran % (Auto) 1.400 H, Neut % (Auto) 77.4 H, L ymph % (Auto) 10.8 L, [place] % (Auto) 9.1, Eos % (Auto) 1.2, Baso % (Auto) 0.1, Absolute Neuts (auto) 6.5, Absolute Lymphs (auto) 0.91, Nucleated RBC % 0, Sodium 136, Potassium 3.4 L, Chloride 100, Carbon Dioxide 32.0, Anion Gap 4 L, B UN 33 H, Creatinine 3.47 H, Estim Creat Clear Calc 24.04, Est GFR (MDRD) Af Amer 23 L, Est GFR (MDRD) Non-Af 19 L, BUN/Creatinine Ratio 9.5 L, Glucose 92, C alcium 10.3 H, Total Bilirubin 0.40, AST 3 L, ALT 9 L, Alkaline Phosphatase 107, Total Protein 4.8 L, Albumin 2.0 L, Globulin 2.8, Albumin/Globulin Ratio 0.7 L, Random Vancomycin 17.0 H Micro: Microbiology 07/14/24 05:08 Sputum, Expectorated/Coughed Gram Stain - Final 07/14/24 05:08 Sputum, Expectorated/Coughed Respiratory Culture - Final 07/14/24 09:20 Mucosa - Nose Coronavirus COVID-19 PCR - Final 07/14/24 04:29 Urine, Random Legionella Antigen - Final 07/14/24 04:29 Urine, Random Streptococcus pneumoniae Antigen (M - Final 07/13/24 16:35 Mucosa - Nasopharyngeal Respiratory Panel (PCR) - Final 07/13/24 21:54 Nasal Secretion SARS-CoV-2 Antigen (Rapid) - Final Physical Exam Narrative Seen and examined. Shortness of breath is better. Patient was on BiPAP 30% last night. Patient home oxygen requirement is 3 to 4 L and uses CPAP. Currently on 5 L of nasal cannula. Physical exam General: alert and awake, oriented x 3. HEENT: Atraumatic, PERRLA, EOMI, Normocephalic Oral: No Gingival or Mucosal Lesions/ Ulcerations Neck: Supple, No JVD, Negative Carotid Bruits Chest wall/Lungs: Air entry diminished in bilateral lung bases. Bilateral expiratory rhonchi. On BiPAP. Dyspnea improved Cardiovascular: Irregular rhythm, A-fib, Normal S1, Normal S2, No M/G/R Abdomen: Bowel Sounds Present, Soft, Non Tender, Non-Distended : No dysuria. No renal angle tenderness. No suprapubic tenderness. Extremities: Mild legs and forearm edema, Capillary Refill Less than 3 Seconds Skin: Chronic grayish discoloration of lower legs suggestive of venous edema. IV line associated bruises in forearm. Mild edema Musculoskeletal: left leg is mild tender. No Tenderness to Palpation of Joints or Extremities. No DVT Neurological: Cranial nerves II-XII grossly intact, DTR 2+/4. No acute focal neurological deficit. Psych/Mental Status: Flat affect Assessment & Plan Assessment/Plan (1) Acute hypoxemic respiratory failure: (2) Pneumonia of both lower lobes: (3) Hypokalemia: (4) Left leg cellulitis: PLAN: Plan 69-year-old gentleman was admitted in chills, cough, sputum production, respiratory distress, mottled appearance short of breath and was admitted in ICU on BiPAP. Acute hypoxic respiratory failure secondary to volume overload/right lower lobe pneumonia: Chest x-ray and chest CTA individually reviewed. No evidence of pulmonary embolism. Bibasilar infiltrates present. Has thoracic and lumbar fusion with hardware. Continue vancomycin and Zosyn and azithromycin to cover MRSA, GNR including Pseudomonas and atypicals. COVID-19 PCR negative. Urinary antigens are negative. Respiratory panel negative. Gram stain pending. Continue incentive spirometry and PEP and Mucinex. Patient on BiPAP/NIPPV 07/15: Patient still short of breath and required 6 L of oxygen 07/16: On 5 L of oxygen. Breathing and respiratory status are gradually getting better. Sputum culture did not had enough specimen Therefore canceled. Will de-escalate the antibiotics patient had about 4 days of IV antibiotic therefore we will discontinue vancomycin. ID consulted. Left lower extremity cellulitis: Left leg is very tender. Covered with antibiotics as mentioned above. Venous duplex is ordered. Patient is on anticoagulant. Wound nurse to follow 07/15: Left leg feels better and patient can lift although weak, strength 4/5 at both knee joints Hypokalemia -P.o. potassium given emergency department Serum magnesium 1.6 phosphorus 2.7. Patient is on hemodialysis. Potassium 3.4. 07/15: Mild hypokalemia but patient on hemodialysis. 07/16: K3.4. Acceptable K level as patient is on hemodialysis. End-stage renal disease -HD dependent -Continue home sevelamer -Consult nephrology -Patient is not compliant with diet -Patient does appear to be somewhat volume overloaded on exam Chronic macrocytic anemia, multifactorial including CKD and chronic disease -H&H 8.4/26.5 decreased from 9.7/30.5%. Monitor CBC. 07/15: H&H 8.3/26%. Immature granulocytes 1.2%. Platelet count 104,000. Anemia workup ordered. 07/16: H&H 8.8/28%. Platelet count 120,000. Reticulocyte count 1.53 elevated. Immature reticulocyte fraction elevated therefore bone marrow active. Iron saturation and ferritin high. 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 -Continue Eliquis History of A-fib/flutter -Patient is on no rate controlling medications as his fib/flutter is not conjoined with RVR -Continue Eliquis Hypertension -Medications have not yet been verified for hypertension -Hold all antihypertensives -Blood pressures are currently on the low side -As needed hydralazine for systolic blood pressure greater than 160 Aortic aneurysm -Stable ascending aortic aneurysm noted on most recent CTA -4.4 cm -Control blood pressure -Recommend outpatient follow-up FELA -Will transition nocturnal CPAP once off BiPAP COPD -Patient had irreversibly moderately severe mixed ventilatory defect with symmetric reduction in diffusing capacity noted on his PFTs from March 2023 -FEV1 was 54% predicted -Nebulizers as above -Recommend outpatient follow-up with pulmonary medicine after discharge Depression/suicidal ideation -Continue home bupropion -Case management consulted -Patient has no current plan DVT prophylaxis -Continue apixaban CODE STATUS -Full code verified at admission Charges/Coding Visit Charges Inpatient E&M: 58222 [facility] Hosp L3
[2024-07-16] MEDS: oxyCODONE 5 MG Tablet PO ×3 (09:30→22:44)
[2024-07-16 09:31] LABS: LDH 165 U/L (87-241)
[2024-07-16 11:34] LABS: M R Staph aureus DNA By PCR Negative (Negative); Probe Check PASS; Specimen Processing Control PASS
[2024-07-16] MEDS: 0.9% Normal Saline 1,000 ML IV.SOLN. 1000 ML OPERA.SITE (12:09)
[2024-07-16] MEDS: PureFlow B 3K Dialysis Soln 1 BAG 6 BAG PF (12:09)
[2024-07-16] MEDS: 0.9% Saline Lock 10 ML Syringe IV (12:09)
[2024-07-16] MEDS: Heparin 10,000 UNITS/10 ML Vial IV (12:10)
[2024-07-16] MEDS: guaiFENesin 1,200 MG Tablet 1200 MG PO ×2 (12:43→22:46)
[2024-07-16] MEDS: Escitalopram Oxalate 20 MG Tablet PO (12:44)
[2024-07-16] MEDS: APIXABAN 5 MG TABLET PO ×2 (12:44→22:44)
[2024-07-16] MEDS: Colestipol 1 GM TABLET PO (12:44)
[2024-07-16] MEDS: buPROPion 75 MG Tablet PO (12:44)
[2024-07-16] MEDS: Ferrous Sulfate 325 MG Tablet PO (12:45)
[2024-07-16] MEDS: Azithromycin 500 MG in Dextrose 5%-Water (250mL Bag) 250 ML 250 MG IV (12:58)
--- NOTE | 2024-07-16 15:30 | PN.RENAL_ITS ---
Subjective Subjective No new complaints. Objective Data Objective Data Vital Signs: Vital Signs Temp Pulse Resp BP Pulse Ox O2 Del Method O2 Flow Rate 97.9 F 73 12 129/86 H 94 Bi-pap 4.5 07/16/24 12:10 07/16/24 13:03 07/16/24 13:03 07/16/24 13:00 07/16/24 14:23 07/16/24 13:00 07/16/24 14:23 FiO2 30 07/16/24 13:03 Oxygen Flow Rate (L/min) 4.5 Oxygen Delivery Method Bi-pap Weight: 91.5 kg Body Mass Index (BMI) 28.2 Intake & Output: Intake and Output for Last 24 Hours 07/14/24 07/15/24 07/16/24 23:59 23:59 23:59 Intake Total 570 / 570 665 / 665 255 / 255 Output Total 2960 / 2960 720 / 720 2640 / 2640 Balance -2390 / -2390 -55 / -55 -2385 / -2385 Lab / Micro Data 07/16/24 04:55 07/16/24 04:55 Labs: Laboratory Results - last 24 hr 07/16/24 04:55: WBC 8.4, RBC 2.55 L, Hgb 8.8 L, Hct 28.3 L, MCV 111.0 H, MCH 34.5 H, MCHC 31.1 L, RDW Std Deviation 62.4 H, RDW Coeff of Justine 15.3 H, Plt Count 120 L, MPV 8.4, Immature Gran % (Auto) 1.400 H, Neut % (Auto) 77.4 H, L ymph % (Auto) 10.8 L, [place] % (Auto) 9.1, Eos % (Auto) 1.2, Baso % (Auto) 0.1, Absolute Neuts (auto) 6.5, Absolute Lymphs (auto) 0.91, Nucleated RBC % 0, Sodium 136, Potassium 3.4 L, Chloride 100, Carbon Dioxide 32.0, Anion Gap 4 L, B UN 33 H, Creatinine 3.47 H, Estim Creat Clear Calc 24.04, Est GFR (MDRD) Af Amer 23 L, Est GFR (MDRD) Non-Af 19 L, BUN/Creatinine Ratio 9.5 L, Glucose 92, C alcium 10.3 H, Total Bilirubin 0.40, AST 3 L, ALT 9 L, Alkaline Phosphatase 107, Lactate Dehydrogenase 165, Total Protein 4.8 L, Albumin 2.0 L, Globulin 2.8, A lbumin/Globulin Ratio 0.7 L, Random Vancomycin 17.0 H 07/16/24 10:05: MRSA (PCR) Negative, Direct Antiglob Test NEG w/POLYSPECIFIC Micro: Microbiology 07/13/24 15:20 Blood Culture (Wb) - Anticubital Left Blood Culture - Preliminary No growth in 48 hours. 07/14/24 05:08 Sputum, Expectorated/Coughed Gram Stain - Final 07/14/24 05:08 Sputum, Expectorated/Coughed Respiratory Culture - Final 07/14/24 09:20 Mucosa - Nose Coronavirus COVID-19 PCR - Final 07/14/24 04:29 Urine, Random Legionella Antigen - Final 07/14/24 04:29 Urine, Random Streptococcus pneumoniae Antigen (M - Final 07/13/24 16:35 Mucosa - Nasopharyngeal Respiratory Panel (PCR) - Final 07/13/24 21:54 Nasal Secretion SARS-CoV-2 Antigen (Rapid) - Final Physical Exam Narrative Alert awake oriented x 3 no obvious distress s1s2 no murmurs lungs clear abdomen soft, nontender Trace nonpitting edema bilateral lower legs. Redness left lower leg Tunneled dialysis catheter dressing clean, dry and intact Assessment & Plan Assessment/Plan (1) ESRD (end stage renal disease): PLAN: - ESRD secondary to biopsy-proven ATN with no noted recovery. Currently on hemodialysis Saturday, , Saturday schedule. Dialysis today. -Left lower extremity cellulitis; IV antibiotic. Venous Duplex no evidence of DVT -Pneumonia; on IV antibiotics. -History of hypertension; blood pressures are low side but stable. He is not on any antihypertensives now. CT chest report reviewed reviewed. Appears to have severe osteopenia, loss of bone mass. Most likely related to immobilization. No evidence of myeloma on kidney biopsy done earlier this year. Serum protein electrophoresis was done late last year. ? PSA.
[2024-07-16] MEDS: Cefepime HCl 1 GM in 0.9% Normal Saline (50mL MB+) 50 ML IV (15:34)
--- NOTE | 2024-07-16 15:59 | CON.PCM.ID_ITS ---
Assessment & Plan Assessment/Plan (1) ESRD (end stage renal disease): (2) Left leg cellulitis: (3) Acute hypoxemic respiratory failure: PLAN: Feeling a little better, will cont empiric azithro and cefepime for now will follow, thank you (4) Chronic hypoxemic respiratory failure: HPI Consult Data Date of Consult: 07/16/24 HPI Narrative Reason for Consultation: pneumonia HPI Narrative: ZIYAD BAER, is a 69 M with ESRD, chronic resp failure, PE, presented 07/13 with several days worsening dyspnea, cough, fatigue, not feeling well. Admitted to icu, now on azithro and cefepime. Feeling a little better. No fever here. Some LLE swelling, redness, soreness. Full ROS performed and neg except as noted above. [facility] Medical History Essential hypertension Atrial flutter Hx of pulmonary embolus Obstructive sleep apnea FELA (obstructive sleep apnea) Hypertension Cancer Psoriasis Home Medications ?Medication ?Instructions ?Recorded ?Last Taken ?Type amlodipine 10 mg tablet 10 mg PO QHS Blood pressure 10/14/19 10/17/20 History escitalopram oxalate 20 mg tablet 20 mg PO DAILY Check with primary 10/14/19 10/22/22 History doctor bupropion HCl 75 mg tablet 75 mg PO DAILY Depression 09/18/22 Unknown History bethanechol chloride 25 mg tablet 25 mg PO TID 30 days #90 tabs 01/07/23 Unknown Rx albuterol sulfate 90 mcg/actuation 2 puff inhalation Q6H sob 01/14/23 Unknown History aerosol inhaler acetaminophen 325 mg tablet 650 mg (2 x 325 mg) PO Q6H PRN PRN 01/17/23 Unknown Rx Pain 1-10 Or Fever>100.7 #0 tabs ferrous sulfate 325 mg (65 mg 325 mg PO DAILY@1200 Check with 03/08/23 Unknown History iron) tablet (FeroSul) primary doctor fluticasone propionate 50 2 spray NASAL DAILY Check with 03/08/23 Unknown History mcg/actuation nasal primary doctor spray,suspension lidocaine 5 % topical patch 1 patch topical 0800 Check with 03/08/23 Unknown History primary doctor magnesium chloride 64 mg 250 mg PO DAILY Check with primary 03/08/23 Unknown History (magnesium chloride) doctor tablet,delayed release (Mag 64) vit A 300 mcg-C 200 mg-E 27 1 cap PO DAILYCM Check with 03/08/23 Unknown History mg-lutein 2 mg and minerals tablet primary doctor (Healthy Eyes) apixaban 5 mg tablet (Eliquis) 5 mg PO BID 30 days #60 tabs 03/13/23 Unknown Rx sennosides 8.6 mg-docusate sodium 2 tab PO BID #0 tabs 03/13/23 Unknown Rx 50 mg tablet (Stool Softener-Stimulant Laxative) cholecalciferol (vitamin D3) 1,250 1,250 mcg PO QWEEK 06/19/23 Unknown History mcg (50,000 unit) capsule colestipol 1 gram tablet 1 g PO DAILY 06/19/23 Unknown History ketoconazole 2 % topical cream 1 applic topical DAILY 06/19/23 Unknown History lisinopril 40 mg tablet 40 mg PO QHS 06/19/23 Unknown History teriparatide 20 mcg/dose (600 20 mcg subcut DAILY 06/19/23 Unknown History mcg/2.4 mL) subcutaneous pen injector (Forteo) baclofen 10 mg tablet 10 mg PO TID PRN muscle spasm 07/26/23 Unknown History carvedilol 25 mg tablet 25 mg PO BID Check with primary 07/26/23 Unknown History doctor cyclobenzaprine 5 mg tablet 5 mg PO TID PRN muscle spasm 07/26/23 Unknown History furosemide 20 mg tablet 20 mg PO DAILY PRN edema 07/26/23 Unknown History potassium chloride 10 mEq 10 meq PO DAILY PRN WITH LASIX 07/26/23 Unknown History tablet,extended release sildenafil 100 mg tablet 100 mg PO DAILY PRN SEE PCP 07/26/23 Unknown History cefuroxime axetil 500 mg tablet 500 mg PO BID #20 tabs 06/01/24 Unknown Rx metronidazole 500 mg tablet 500 mg PO BID #20 tabs 06/01/24 Unknown Rx ondansetron 8 mg disintegrating 8 mg PO Q8H PRN nausea and 06/01/24 Unknown Rx tablet vomiting #20 tabs budesonide-formoterol HFA 160 2 puff inhalation BID 07/13/24 Unknown History mcg-4.5 mcg/actuation aerosol inhaler gabapentin 300 mg capsule 300 mg PO DAILY 07/13/24 Unknown History losartan 25 mg tablet 25 mg PO DAILY 07/13/24 Unknown History oxycodone-acetaminophen 5 mg-325 1 tab PO Q8H PRN PRN pain 07/13/24 Unknown History mg tablet sevelamer carbonate 800 mg tablet 800 mg PO 4X/DAY 07/13/24 Unknown History tizanidine 2 mg tablet 2 mg PO TID PRN 07/13/24 Unknown History vitamin B complex-vitamin C-folic 1 tab PO DAILY 07/13/24 Unknown History acid 0.8 mg tablet (Shannon-Dia) Allergy/AdvReac Type Severity Reaction Status Date / Time lorazepam Allergy Other Verified 07/13/24 10:43 Penicillins Allergy Itching Verified 07/13/24 10:43 poison ever extract Allergy Itching Verified 07/13/24 10:43 Family History Mother CVA (cerebral vascular accident) Father CAD (coronary artery disease) Hypertension Cancer Prostate Other Brain aneurysm Heart disease Prostate CA Surgical History Status post laminectomy History of carpal tunnel surgery History of herniorrhaphy Hx of cholecystectomy Hx of appendectomy Social History household members: spouse Smoking Status: Former smoker alcohol intake: current alcohol intake frequency: 3 or more drinks per day substance use type: does not use Physical Exam Const alert, oriented x3 and no apparent distress General Appearance: cooperative HEENT normocephalic and head/scalp atraumatic Eyes PERRL and EOMs intact bilaterally Neck supple and No nodes Resp Auscultation: wheezes and diminished lung sounds Cardio regular rate and regular rhythm GI soft to palpation, non-tender and non-distended Extremity General Extremity: edema Skin Skin Narrative: leg redness Neuro CN's II-XII intact bilaterally Lab / Micro Data Attestation: I reviewed the patient's lab results. 07/16/24 04:55 07/16/24 04:55 Labs: Laboratory Results - last 24 hr 07/16/24 04:55: WBC 8.4, RBC 2.55 L, Hgb 8.8 L, Hct 28.3 L, MCV 111.0 H, MCH 34.5 H, MCHC 31.1 L, RDW Std Deviation 62.4 H, RDW Coeff of Justine 15.3 H, Plt Count 120 L, MPV 8.4, Immature Gran % (Auto) 1.400 H, Neut % (Auto) 77.4 H, L ymph % (Auto) 10.8 L, [place] % (Auto) 9.1, Eos % (Auto) 1.2, Baso % (Auto) 0.1, Absolute Neuts (auto) 6.5, Absolute Lymphs (auto) 0.91, Nucleated RBC % 0, Sodium 136, Potassium 3.4 L, Chloride 100, Carbon Dioxide 32.0, Anion Gap 4 L, B UN 33 H, Creatinine 3.47 H, Estim Creat Clear Calc 24.04, Est GFR (MDRD) Af Amer 23 L, Est GFR (MDRD) Non-Af 19 L, BUN/Creatinine Ratio 9.5 L, Glucose 92, C alcium 10.3 H, Total Bilirubin 0.40, AST 3 L, ALT 9 L, Alkaline Phosphatase 107, Lactate Dehydrogenase 165, Total Protein 4.8 L, Albumin 2.0 L, Globulin 2.8, A lbumin/Globulin Ratio 0.7 L, Random Vancomycin 17.0 H 07/16/24 10:05: MRSA (PCR) Negative, Direct Antiglob Test NEG w/POLYSPECIFIC Micro: Microbiology 07/13/24 15:20 Blood Culture (Wb) - Anticubital Left Blood Culture - Preliminary No growth in 48 hours.
--- NOTE | 2024-07-16 16:31 | CASEMGMT ---
TONY JOVEL NOTE: Therapy notes from today reviewed. Pt only able to ambulate 2 ft w/mod assist of 2. RN CM to room. Pt sitting up in chair. Discussed discharge planning. He states he is still very weak and is agreeable to SNF @ discharge. He would like a list to review. Sherice, discharge assistant restaurant general manager, made aware. Pt states he thinks he may be out of SNF days and would like someone to check on this. Message sent to Olga LOOMIS. Briseyda WISE RN CM
--- NOTE | 2024-07-16 16:35 | EKG12_ITS ---
Test Reason : rhythm change Blood Pressure : / mmHG Vent. Rate : 107 BPM Atrial Rate : 107 BPM P-R Int : 240 ms QRS Dur : 094 ms QT Int : 388 ms P-R-T Axes : 041 -02 219 degrees QTc Int : 517 ms Sinus tachycardia with 1st degree A-V block with occasional Premature ventricular complexes and Fusio n complexes Possible Lateral infarct , age undetermined ST & T wave abnormality, consider anterior ischemia Abnormal ECG Confirmed by Luc Knox ([id number]), deputy editor in chief MARTY WASHINGTON ([id number]) on 07/20/2024 1:40:01 PM Referred By: Joesph Confirmed By:Luc Knox
[2024-07-16] MEDS: QUEtiapine 25 MG Tablet 50 MG PO (22:44)
[2024-07-16] MEDS: Baclofen 10 MG Tablet PO (22:44)
[2024-07-16] MEDS: SEVELAMER CARBONATE 800 MG TABLET PO (22:46)
[2024-07-17] VITALS (10 sets, daily range): BP systolic 110–127; BP diastolic 77–86; PULSE 59–99; RESP 12–20; TEMP 36.2–36.6; O2SAT 95–99; BMI 28.4
[2024-07-17 04:08] LABS: Haptoglobin 331 mg/dL (32-363)
[2024-07-17] MEDS: metroNIDAZOLE 500 MG Tablet PO (06:15)
[2024-07-17] MEDS: Budesonide Respules 0.5 MG/2 ML AMPUL.NEB. INHALATION ×2 (07:37→19:08)
[2024-07-17] MEDS: Ipratropium/Albuterol Sulfate 3 ML AMPUL.NEB INHALATION ×2 (07:37→19:08)
[2024-07-17 07:45] LABS: Absolute Lymphocyte Count 1.04 X10^3/uL (0.83-4.51); Absolute Neutrophil Count 6.6 X10^3/uL (2.0-7.7); Basophil# 0.01 X10^3/uL; Basophil% 0.1 % (0-1); Eosinophil# 0.07 X10^3/uL; Eosinophils% 0.8 % (0-5); Hematocrit 27.2 % (40-54); Hemoglobin 8.5 g/dL (13.0-16.5); Lymphocyte # 1.04 X10^3/ul (0.83-4.51); Lymphocyte % 12.3 % (19-41); Mean Corp Hgb Conc 31.3 g/dL (32-36); Mean Corpuscular Hgb 35.6 pg (27.0-32.0); Mean Corpuscular Volume 113.8 fL (80-94); Monocyte# 0.62 X10^3/uL; Monocyte% 7.3 % (0-10); NRBC Flagged by Analyzer 0 % (0-5); Neutrophil % 78.1 % (47-70); Platelet Count 109 K/mm3 (150-450); RBC Distribution Width CV 15.2 % (11.6-14.6); RBC Distribution Width SD 63.3 fl (35.1-43.9); Red Blood Count 2.39 M/mm3 (4.6-6.2); White Blood Count 8.5 K/mm3 (4.4-11.0)
--- NOTE | 2024-07-17 07:59 | CT_ITS ---
STUDY: CT BRAIN WITHOUT CONTRAST REASON FOR EXAM: Male, 69 years old. Confusion RADIATION DOSAGE (If Supplied By Facility): CTDIvol = ( 44.99 ) mGy, DLP = ( 846.73 ) mGycm TECHNIQUE: Transaxial CT imaging of the brain was performed without administration of intravenous contrast material. Individualized dose optimization techniques were used for this CT. COMPARISON: No relevant priors. FINDINGS: Normal soft tissue structures. Normal calvarium. There is mild cerebral atrophy with widening of the extra-axial spaces and ventricular dilatation. There are areas of decreased attenuation within the white matter tracts of the supratentorial brain, consistent with microvascular disease changes. Normal basal ganglia and thalami. Normal brainstem. Normal cerebellum. There is no intracranial hemorrhage. There are no findings of an acute ischemic infarction. Atherosclerotic calcification of the vertebral arteries and cavernous portions of the internal carotid arteries bilaterally. Partial opacification of the left maxillary sinus. CT/Brain/Head without Contrast IMPRESSION: Chronic involutional changes of the brain. Partial opacification of the left maxillary sinus. Electronically Signed: Ayad Sexton MD at 8:44 EDT ,
--- NOTE | 2024-07-17 08:04 | RAD_ITS ---
STUDY: X-RAY CHEST REASON FOR EXAM: Male, 69 years old. reps failure, nonresolving pneumonia TECHNIQUE: AP and lateral views of the chest. COMPARISON: Comparison is made with prior study dated July 13, 2024. FINDINGS: EKG electrodes are seen. A right-sided double-lumen catheter is seen with the tip in the right atrium. Increased markings at the lung bases suggestive of atelectasis and/or scarring. Blunting of the left costophrenic angle. Vascular congestion. There is moderate cardiac enlargement. Normal mediastinum and brennen. Normal visualized pulmonary arteries. There is atherosclerotic calcification of the aortic arch with tortuosity. Prior clavicular sclerotic fixation. Multiple healed left rib fractures. Degenerative changes of the shoulder joint. There is no demonstrated abnormality of the visualized soft tissue structures of the upper abdomen. RAD/Chest PA and Lateral IMPRESSION: Mild increased markings at the lung bases suggestive of atelectasis and/or scarring superimposed on mild CHF. Electronically Signed: Ayad Sexton MD at 9:02 EDT ,
[2024-07-17 08:25] LABS: Anion Gap 5 (5-15); BUN 26 mg/dL (7-18); BUN/Creat Ratio 9.6 RATIO (10-20); Calcium,Total 10.5 mg/dL (8.5-10.1); Chloride 105 mmol/L (98-107); EST Glomerular Filtration Rate 25 mL/min (>60); Est Glom Filt Rate - Afr Amer 30 mL/min (>60); Glucose 86 mg/dL (74-106); PSA,Total- Diagnostic 1.86 ng/mL (0.0-4.0); Sodium Level 139 mmol/L (136-145)
--- NOTE | 2024-07-17 08:44 | CASEMGMT ---
Discharge Planning A list of?SNF providers including quality and resource use data and consistent with the patient's preferred geographic region, medical needs, and insurance network was created in [employer] Guide.? This list was provided to the RN BECKA. Sherice Lopez, Discharge Planning Asst.
--- NOTE | 2024-07-17 09:02 | PN.HOSP_ITS ---
Reason for Visit Reason for Visit: Diagnoses Hypokalemia (07/13/24) Pneumonia, unspecified organism (07/13/24) Acute respiratory failure with hypoxia (07/13/24) Chronic respiratory failure with hypoxia (07/13/24) Cellulitis of left lower limb (07/13/24) End stage renal disease (07/13/24) Objective Data Objective Data Vital Signs: Vital Signs Temp Pulse Resp BP Pulse Ox O2 Del Method O2 Flow Rate 97.2 F L 74 20 H 145/80 H 95 Nasal Cannula 4.5 07/16/24 20:00 07/17/24 07:37 07/17/24 07:37 07/16/24 20:00 07/17/24 07:37 07/17/24 07:37 07/17/24 07:37 FiO2 30 07/17/24 05:34 Oxygen Flow Rate (L/min) 4.5 Oxygen Delivery Method Nasal Cannula Weight: 203 lb 0.732 oz Body Mass Index (BMI) 28.4 Intake & Output: Intake and Output for Last 24 Hours 07/15/24 07/16/24 07/17/24 23:59 23:59 23:59 Intake Total 665 / 665 505 / 505 0 / 0 Output Total 720 / 720 2890 / 3040 350 / 350 Balance -55 / -55 -2385 / -2535 -350 / -350 Lab / Micro Data 07/17/24 07:25 07/17/24 07:25 Labs: Laboratory Results - last 24 hr 07/16/24 04:55: Lactate Dehydrogenase 165 07/16/24 10:05: Haptoglobin 331, MRSA (PCR) Negative, Direct Antiglob Test NEG w/POLYSPECIFIC 07/17/24 07:25: WBC 8.5, RBC 2.39 L, Hgb 8.5 L, Hct 27.2 L, MCV 113.8 H, MCH 35.6 H, MCHC 31.3 L, RDW Std Deviation 63.3 H, RDW Coeff of Justine 15.2 H, Plt Count 109 L, MPV 9.0, Immature Gran % (Auto) 1.400 H, Neut % (Auto) 78.1 H, L ymph % (Auto) 12.3 L, [place] % (Auto) 7.3, Eos % (Auto) 0.8, Baso % (Auto) 0.1, Absolute Neuts (auto) 6.6, Absolute Lymphs (auto) 1.04, Nucleated RBC % 0, Sodium 139, Potassium 4.0, Chloride 105, Carbon Dioxide 29.0, Anion Gap 5, BUN 26 H, Creatinine 2.70 H, Estim Creat Clear Calc 30.80, Est GFR (MDRD) Af Amer 30 L, Est GFR (MDRD) Non-Af 25 L, BUN/Creatinine Ratio 9.6 L, Glucose 86, Calcium 10.5 H, Total PSA 1.86 Micro: Microbiology 07/13/24 15:20 Blood Culture (Wb) - Anticubital Left Blood Culture - Preliminary No growth in 48 hours. 07/14/24 05:08 Sputum, Expectorated/Coughed Gram Stain - Final 07/14/24 05:08 Sputum, Expectorated/Coughed Respiratory Culture - Final 07/14/24 09:20 Mucosa - Nose Coronavirus COVID-19 PCR - Final 07/14/24 04:29 Urine, Random Legionella Antigen - Final 07/14/24 04:29 Urine, Random Streptococcus pneumoniae Antigen (M - Final 07/13/24 16:35 Mucosa - Nasopharyngeal Respiratory Panel (PCR) - Final 07/13/24 21:54 Nasal Secretion SARS-CoV-2 Antigen (Rapid) - Final Radiography Diagnostic Testing: Radiology Impression Brain CT 07/17/24 07:59 IMPRESSION: Chronic involutional changes of the brain. Partial opacification of the left maxillary sinus. Electronically Signed: Ayad Sexton MD at 8:44 EDT , Physical Exam Narrative Seen and examined. No improvement in respiratory status or shortness of breath. On 5 L of oxygen. Patient has shallow breathing. Repeat chest x-ray done today. Patient is confused and disoriented. Slow to respond Patient home oxygen requirement is 3 to 4 L and uses CPAP. Currently on 5 L of nasal cannula. Physical exam General: Awake, confused, sometimes incoherent. Disoriented x 3. Increased reaction time to respond. HEENT: Atraumatic, PERRLA, EOMI, Normocephalic Oral: No Gingival or Mucosal Lesions/ Ulcerations Neck: Supple, No JVD, Negative Carotid Bruits Chest wall/Lungs: Air entry diminished in bilateral lung bases. Bilateral expiratory rhonchi. Shallow breathing. Cardiovascular: Irregular rhythm, A-fib, Normal S1, Normal S2, No M/G/R Abdomen: Bowel Sounds Present, Soft, Non Tender, Non-Distended : No dysuria. No renal angle tenderness. No suprapubic tenderness. Extremities: Mild legs and forearm edema, Capillary Refill Less than 3 Seconds Skin: Chronic grayish discoloration of lower legs suggestive of venous edema. IV line associated bruises in forearm. Mild edema Musculoskeletal: left leg is mild tender. No Tenderness to Palpation of Joints or Extremities. No DVT Neurological: Cranial nerves II-XII grossly intact, DTR 2+/4. No acute focal neurological deficit. Psych/Mental Status: Flat affect Assessment & Plan Assessment/Plan (1) Acute hypoxemic respiratory failure: (2) Pneumonia of both lower lobes: (3) Hypokalemia: (4) Left leg cellulitis: PLAN: Plan 69-year-old gentleman was admitted in chills, cough, sputum production, respiratory distress, mottled appearance short of breath and was admitted in ICU on BiPAP. Acute hypoxic respiratory failure secondary to volume overload/right lower lobe pneumonia: Chest x-ray and chest CTA individually reviewed. No evidence of pulmonary embolism. Bibasilar infiltrates present. Has thoracic and lumbar fusion with hardware. Continue vancomycin and Zosyn and azithromycin to cover MRSA, GNR including Pseudomonas and atypicals. COVID-19 PCR negative. Urinary antigens are negative. Respiratory panel negative. Gram stain pending. Continue incentive spirometry and PEP and Mucinex. Patient on BiPAP/NIPPV 07/15: Patient still short of breath and required 6 L of oxygen 07/16: On 5 L of oxygen. Breathing and respiratory status are gradually getting better. Sputum culture did not had enough specimen Therefore canceled. Will de-escalate the antibiotics patient had about 4 days of IV antibiotic therefore we will discontinue vancomycin. ID consulted. 07/17: Patient was seen by ID and recommended to continue cefepime and Zithromax. Zithromax was discontinued yesterday because of interaction with Seroquel which patient required for confusion/not able to tolerate BiPAP. Will change to doxycycline. Repeat chest x-ray was initially reviewed official report pending. Suboptimal x-ray, decreased volume especially on the left, rotated x-ray. Chronic scarring with bibasilar infiltrates. Thoracic and lumbar hardware. Tele-PCC consult Left lower extremity cellulitis: Left leg is very tender. Covered with antibiotics as mentioned above. Venous duplex is ordered. Patient is on anticoagulant. Wound nurse to follow 07/15: Left leg feels better and patient can lift although weak, strength 4/5 at both knee joints 07/16: Acute encephalopathy with change in mental status, increased confusion, distraction, sometimes, disorientation, increased reaction time to respond and echolalia: Orientation cues. CT head was done which does not show acute abnormality but partial opacification of left maxillary sinus. Neurology consult. Hypokalemia -P.o. potassium given emergency department Serum magnesium 1.6 phosphorus 2.7. Patient is on hemodialysis. Potassium 3.4. 07/15: Mild hypokalemia but patient on hemodialysis. 07/16: K3.4. Acceptable K level as patient is on hemodialysis. End-stage renal disease -HD dependent -Continue home sevelamer -Consult nephrology -Patient is not compliant with diet -Patient does appear to be somewhat volume overloaded on exam Chronic macrocytic anemia, multifactorial including CKD and chronic disease -H&H 8.4/26.5 decreased from 9.7/30.5%. Monitor CBC. 07/15: H&H 8.3/26%. Immature granulocytes 1.2%. Platelet count 104,000. Anemia workup ordered. 07/16: H&H 8.8/28%. Platelet count 120,000. Reticulocyte count 1.53 elevated. Immature reticulocyte fraction elevated therefore bone marrow active. Iron saturation and ferritin high. 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 -Continue Eliquis History of A-fib/flutter -Patient is on no rate controlling medications as his fib/flutter is not conjoined with RVR -Continue Eliquis Hypertension -Medications have not yet been verified for hypertension -Hold all antihypertensives -Blood pressures are currently on the low side -As needed hydralazine for systolic blood pressure greater than 160 Aortic aneurysm -Stable ascending aortic aneurysm noted on most recent CTA -4.4 cm -Control blood pressure -Recommend outpatient follow-up FELA -Will transition nocturnal CPAP once off BiPAP COPD -Patient had irreversibly moderately severe mixed ventilatory defect with symmetric reduction in diffusing capacity noted on his PFTs from March 2023 -FEV1 was 54% predicted -Nebulizers as above -Recommend outpatient follow-up with pulmonary medicine after discharge Depression/suicidal ideation -Continue home bupropion -Case management consulted -Patient has no current plan DVT prophylaxis -Continue apixaban CODE STATUS -Full code verified at admission Charges/Coding Visit Charges Inpatient E&M: 12178 Subs Hosp L3
[2024-07-17] MEDS: SEVELAMER CARBONATE 800 MG TABLET PO ×3 (09:12→22:03)
[2024-07-17] MEDS: Colestipol 1 GM TABLET PO (09:12)
[2024-07-17] MEDS: APIXABAN 5 MG TABLET PO ×2 (09:13→22:03)
[2024-07-17] MEDS: Escitalopram Oxalate 20 MG Tablet PO (09:22)
[2024-07-17] MEDS: buPROPion 75 MG Tablet PO (09:23)
[2024-07-17] MEDS: guaiFENesin 1,200 MG Tablet 1200 MG PO ×2 (09:23→22:02)
--- NOTE | 2024-07-17 10:37 | SP.MBSS_ITS ---
Modified Barium Swallow Patient Information Study Date: 07/17/24 Study Time: 10:30 Direct Billable Minutes: 180 Total Minutes procedure & reportin Diagnosis: J96.01 - Acute respiratory failure, J18.9 - Pneumonia Referring Physician: Keith Pink Reason for Referral: Objectively assess swallow function, assess risk for aspiration, and determine recommendations for least restrictive diet textures and compensatory strategies to improve safety of swallow. Medical History: PMH: HTN, Atrial flutter, Hx of PE, FELA, HTN, Cancer, Psoriasis. The patient presented to [facility] ED 07/13/2024 w/ chief complaint of shortness of breath. He also complained of associated pressure sensation in his chest, chills, and cough - a couple times a day he will bring up sputum. The patient is dialysis dependent and typically goes to dialysis on Saturday, , and Saturday. In the ED, BP was 178/77 and pulse ox was 94% on 4 L nasal cannula the patient is not oxygen dependent at baseline. Chest x-ray shows vascular congestion and abnormalities at the lung bases. CTA of the chest was performed and did not demonstrate PE or dissection but he does have bibasilar infiltrates. He was admitted to ICU for subsequent management and was placed on BiPAP. RN noted the patient to have trouble swallowing his medications doing double gulps and looking very effortful w/ his swallowing. He was referred for ST consult where evaluating [employer] recommended instrumental swallow study to determine the most appropriate PO diet. Current Diet Ordered: EASY TO CHEW TEXTURES; THIN LIQUIDS Mental Status: Impaired Respiratory Status: Oxygenating on 4L/M nasal cannula Penetration-Aspiration Scale Penetration-Aspiration Scale: OBJECTIVE ASSESSMENT OF SWALLOW FUNCTION (QUANTITATIVE ? PER TRIAL): PENETRATION / ASPIRATION SCALE (JIMENES): 1 = does not enter airway 2 = enters airway/above vocal folds/ejected 3 = enters airway/above vocal folds/not ejected 4 = enters airway/contacts vocal folds/ejected 5 = enters airway/contacts vocal folds/not ejected 6 = enters airway/below vocal folds/ejected 7 = enters airway/below vocal folds/not ejected despite effort 8 = enters airway/below vocal folds/no effort VIDEOFLOROSCOPIC SCALE SCORE (JIMENES): Grade I = aspiration of material that has penetrated into the laryngeal vestibule, intact cough reflex Grade II = aspiration < 10 % of the bolus, intact cough reflex Grade III = aspiration of < 10 % of the bolus, reduced cough reflex or aspiration of > 10 % of the bolus, intact cough reflex Grade IV = aspiration of > 10 % of the bolus, reduced cough reflex Penetration-Aspiration Scale Score Thin Liquid via teaspoon: Result: 1= does not enter airway Thin Liquid via teaspoon Trial 2: Result: 2= enter airway/above vocal folds/ejected Thin Liquid via small single sip: cup: Result: 1= does not enter airway Comment: [employer] controlling sips size Thin Liquid via single sip: straw: Result: 2= enter airway/above vocal folds/ejected Thin Liquid via single sip: straw Trial 2: Result: 3= enters airways/above vocal folds/not ejected Thin Liquid via single sip: straw Trial 3: Result: 1= does not enter airway Pudding: Result: 1= does not enter airway Cookie: Result: 1= does not enter airway Thin Liquid Trial 4: Result: 1= does not enter airway Oral Phase Labial Seal: Escape beyond mid-chin Tongue Control During Bolus Hold: Posterior escape of greater than half of bolus Bolus Preparation/Mastication: Disorganized chewing/mashing with solid pieces of bolus unchewed Bolus Transport/Lingual Motion: Repetitive/disorganized tongue motion Oral Residue: Residue collection on oral structures Pharyngeal Phase Initiation of Pharyngeal Swallow: Bolus head in valleculae Soft Palate Elevation: No bolus between soft palate and pharyngeal wall Laryngeal Elevation: Partial superior movement thyroid cart/partial apprx aryt- epig petiole Anterior Hyoid Excursion: Partial anterior movement Epiglottic Movement: Partial inversion Laryngeal Vestibule Closure at Height of Swallow: Incomplete; narrow column of air/contrast in laryngeal vestibule Pharyngeal Stripping Wave: Present - diminished Pharyngoesophageal Segment Opening: Parital distension and partial duration; parital obstruction of flow Tongue Base Retraction: Narrow column of contrast between tongue base & post. pharyngeal wall Pharyngeal Residue: Collection of residue within or on pharyngeal structures Esophageal Phase Esophageal Clearance: Esophageal retention w/ retrograde flow through pharyngoesophageal seg Diagnosis/Impression Diagnosis: oropharyngeal dysphagia R13.12, esophageal dysphagia R13.14 Impression: Oral phase primarily marked by... - demonstrates poor labial closure, resulting in anterior spillage of thin liqui ds, pudding, and cookie textures. - lingual pumping was observed, with a delayed AP transit noted across all consistencies. - unable to effectively masticate the cookie without liquid wash that the pt. requested. W/ liquid wash and extended time - able to tolerate???of Venecia Doone cookie.? - oral residue present, necessitating additional swallows to clear. Pharyngeal phase primarily marked by... - poor bolus control, with premature spillage into the vallecula prior to swallow initiation. - transient laryngeal penetration was observed with thin liquids administered via tsp. and straw, with one instance of barium not being fully ejected. Visualizing the vocal cords was challenging due to the patient's body habitus, which restricted an upright position and obscured the view of the airway. 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 -Notably, retrograde flow into the pyriform sinuses was evident during the thin liquid teaspoon trial. Subsequent trials showed increased residue in the pyriforms spilling into the laryngeal vestibule, with contrast material noted on the undercoated side of the vocal cords. - pt. is at risk for prandial and post prandial aspiration. Esophageal phase primarily marked by... - significant retention in the upper esophagus observed the pudding trial, with retrograde flow observed. The provision of a liquid wash improved esophageal clearance to some extent. - during the cookie trial, despite liquid wash to facilitate mastication, increased retention and retrograde flow persisted. Given these findings, a GI consult is recommended to address the esophageal issues and optimize swallowing function. Recommendations Diet: Puree Textures and Thin Liquids Compensatory Strategies: Small Bites, Small Sips, Alternate bites/solids and sips/liquids, Sitting upright and Remain sitting upright for 30 minutes after PO intake Recommend Repeat Modified Barium Swallow: TBD Need for Skilled Speech Therapy Services: Yes Recommended Referrals: GI Consult and ENT Consult Education Completed: 1. Described result of evaluation. and 2. Pt understands evaluation & agrees with goals and treatment plan. Status Active ST Patient: Active Contact Information [facility] Speech Therapy:: Laurel Stephenson M.A. [facility] Speech-Language Pathologist [facility] [address] [place] [address] [phone]
--- NOTE | 2024-07-17 11:04 | CASEMGMT ---
Addendum entered by Roopa Hidalgo 07/17/24 11:33: flume worker spoke with pt regarding ROMEANTIONE Russell's recommendation for referral to [facility]. Pt agreeable. DC conventions assistant updated and referral to be sent. Plan: [facility], pending acceptance and precert TEJAS Lindo Original Note: Social Work SW met with pt to discuss discharge plan. SW introduced self and role of SW. Pt is slow to respond and although it initially appeared pt is not understanding SW, when given time, pt is able to communicate his thoughts appropriately. SW discussed pt functional ability and recommendations for SNF. Pt is understanding of this. A list of SNF providers including quality and resource use data and consistent with the patient?s preferred geographic region, medical needs, and insurance network [facility]. SW started reviewing list with pt. Pt then asking SW to help him call Antionette Hammond, who is pt's home health nurse. EBONIE assisted pt in calling Antionette and had her on speaker phone with SW present. TONY Adan works for [employer] and is contracted through the [employer]. Antionette visits patient once a week for 4-6 hours. Per Antionette, Pt receives these services due to Diagnosis J64 Unspecified pneumoconiosis and J84.10 Pulmonary Fibrosis. Antionette states that if she is able to get additional information from hospitalization, she can work on arranging 24 hour care at home through the [employer]. Pt is agreeable and requesting information be given to Antionette. Nursing updated and phone number provided. EBONIE again readdressed need for short term SNF prior to returning home. Pt unable to identify a SNF of choice and agreeable for SW to call SHANA Saldaña to discuss options. Phone call to Yvonne and discussed discharge plans. Yvonne states she provides care for pt in the home and pt has been a one assist. If pt requires 2 assist which pt currently is, she is unable. EBONIE reviewed SNF list with Yvonne and she would prefer [facility] as this is right around the corner from her home and she can visit pt often. EBONIE attempted to meet with pt to discuss, however pt is now out of the room. EBONIE will follow up with pt to continue discharge discussion. TEJAS Lindo
--- NOTE | 2024-07-17 11:40 | CASEMGMT ---
Addendum entered by Sherice Lopez 07/17/24 14:06: CC declined. SW updated. Sherice Lopez DC Planning Asst Original Note: Discharge Planning Referral sent to [facility] via [facility]. Sherice Lopez DC Planning Asst.
--- NOTE | 2024-07-17 11:50 | CASEMGMT ---
TONY JOVEL NOTE: Call placed to Nissa @ [facility]. She was made aware pt is still in the hospital and will be here through the weekend. She was also made aware plan is for SNF @ discharge, but uncertain @ this time what SNF he will be discharging to. She is to f/u with someone on Saturday re: further discharge plans. Briseyda WISE RN CM
--- NOTE | 2024-07-17 12:12 | NEURO.CONS ---
Assessment and Plan: Neuro Assessment/Plan ZIYAD BAER Jr. is a 69 M with a past medical history of respiratory failure, on hemodialysis Saturday, Saturday (he has not been compliant with his diet) VTE on Eliquis, hypertension and failure to thrive, being evaluated by Teleneurology for confusion. Pt is poor contributor to his history but per nurses he has had a gradual decline in his functioning since being in the hospital. Exam signficant for asterixis and inattention. At this time concern that pt has severe metabolic abnormalities that are leading to his confusion Plan: - Pt states he does not take baclofen at home initially but then confused. Recommend scheduling baclofen 10mg BID without PRN - correct Ca as is elevated and albumin is low. - maintain bowel movements with lactulose, even if ammonia level is normal. Would still obtain an ammonia level. I personally attended this patient and spent a total time of 45 minutes evaluating this patient including clinical assessment, review of chart, medical history imaging, and determining appropriate treatment and workup. HPI Consult Data Date of Consult: 07/17/24 HPI Narrative HPI Narrative: 69-year-old gentleman was admitted in chills, cough, sputum production, respiratory distress, mottled appearance short of breath and was admitted in ICU on BiPAP. Acute hypoxic respiratory failure secondary to volume overload/right lower lobe pneumonia: Chest x-ray and chest CTA individually reviewed. No evidence of pulmonary embolism. Bibasilar infiltrates present. Has thoracic and lumbar fusion with hardware. Continue vancomycin and Zosyn and azithromycin to cover MRSA, GNR including Pseudomonas and atypicals. COVID-19 PCR negative. Urinary antigens are negative. Respiratory panel negative. Gram stain pending. Continue incentive spirometry and PEP and Mucinex. Patient on BiPAP/NIPPV 07/15: Patient still short of breath and required 6 L of oxygen 07/16: On 5 L of oxygen. Breathing and respiratory status are gradually getting better. Sputum culture did not had enough specimen Therefore canceled. Will de-escalate the antibiotics patient had about 4 days of IV antibiotic therefore we will discontinue vancomycin. ID consulted. 07/17: Patient was seen by ID and recommended to continue cefepime and Zithromax. Zithromax was discontinued yesterday because of interaction with Seroquel which patient required for confusion/not able to tolerate BiPAP. Will change to doxycycline. Repeat chest x-ray was initially reviewed official report pending. Suboptimal x-ray, decreased volume especially on the left, rotated x-ray. Chronic scarring with bibasilar infiltrates. Thoracic and lumbar hardware. Tele-PCC consult Left lower extremity cellulitis: Left leg is very tender. Covered with antibiotics as mentioned above. Venous duplex is ordered. Patient is on anticoagulant. Wound nurse to follow 07/15: Left leg feels better and patient can lift although weak, strength 4/5 at both knee joints 07/16: Acute encephalopathy with change in mental status, increased confusion, distraction, sometimes, disorientation, increased reaction time to respond and echolalia: Orientation cues. CT head was done which does not show acute abnormality but partial opacification of left maxillary sinus. Neurology consult. Pt on Apixaban, baclofen 10,g TID at home. Here on seroquel 50mg QHS Neurologic History Endorses pain in upper back and shoulders. Tangential and seems confused. Able to provide some information as to why he is in hospital but overall is confused. When asked if he feels confused he states yes. But they he states he is doing ok. [facility] Medical History Essential hypertension Atrial flutter Hx of pulmonary embolus Obstructive sleep apnea FELA (obstructive sleep apnea) Hypertension Cancer Psoriasis Home Medications ?Medication ?Instructions ?Recorded ?Last Taken ?Type amlodipine 10 mg tablet 10 mg PO QHS Blood pressure 10/14/19 10/17/20 History escitalopram oxalate 20 mg tablet 20 mg PO DAILY Check with primary 10/14/19 10/22/22 History doctor bupropion HCl 75 mg tablet 75 mg PO DAILY Depression 09/18/22 Unknown History bethanechol chloride 25 mg tablet 25 mg PO TID 30 days #90 tabs 01/07/23 Unknown Rx albuterol sulfate 90 mcg/actuation 2 puff inhalation Q6H sob 01/14/23 Unknown History aerosol inhaler acetaminophen 325 mg tablet 650 mg (2 x 325 mg) PO Q6H PRN PRN 01/17/23 Unknown Rx Pain 1-10 Or Fever>100.7 #0 tabs ferrous sulfate 325 mg (65 mg 325 mg PO DAILY@1200 Check with 03/08/23 Unknown History iron) tablet (FeroSul) primary doctor fluticasone propionate 50 2 spray NASAL DAILY Check with 03/08/23 Unknown History mcg/actuation nasal primary doctor spray,suspension lidocaine 5 % topical patch 1 patch topical 0800 Check with 03/08/23 Unknown History primary doctor magnesium chloride 64 mg 250 mg PO DAILY Check with primary 03/08/23 Unknown History (magnesium chloride) doctor tablet,delayed release (Mag 64) vit A 300 mcg-C 200 mg-E 27 1 cap PO DAILYCM Check with 03/08/23 Unknown History mg-lutein 2 mg and minerals tablet primary doctor (Healthy Eyes) apixaban 5 mg tablet (Eliquis) 5 mg PO BID 30 days #60 tabs 03/13/23 Unknown Rx sennosides 8.6 mg-docusate sodium 2 tab PO BID #0 tabs 03/13/23 Unknown Rx 50 mg tablet (Stool Softener-Stimulant Laxative) cholecalciferol (vitamin D3) 1,250 1,250 mcg PO QWEEK 06/19/23 Unknown History mcg (50,000 unit) capsule colestipol 1 gram tablet 1 g PO DAILY 06/19/23 Unknown History ketoconazole 2 % topical cream 1 applic topical DAILY 06/19/23 Unknown History lisinopril 40 mg tablet 40 mg PO QHS 06/19/23 Unknown History teriparatide 20 mcg/dose (600 20 mcg subcut DAILY 06/19/23 Unknown History mcg/2.4 mL) subcutaneous pen injector (Forteo) baclofen 10 mg tablet 10 mg PO TID PRN muscle spasm 07/26/23 Unknown History carvedilol 25 mg tablet 25 mg PO BID Check with primary 07/26/23 Unknown History doctor cyclobenzaprine 5 mg tablet 5 mg PO TID PRN muscle spasm 07/26/23 Unknown History furosemide 20 mg tablet 20 mg PO DAILY PRN edema 07/26/23 Unknown History potassium chloride 10 mEq 10 meq PO DAILY PRN WITH LASIX 07/26/23 Unknown History tablet,extended release sildenafil 100 mg tablet 100 mg PO DAILY PRN SEE PCP 07/26/23 Unknown History cefuroxime axetil 500 mg tablet 500 mg PO BID #20 tabs 06/01/24 Unknown Rx metronidazole 500 mg tablet 500 mg PO BID #20 tabs 06/01/24 Unknown Rx ondansetron 8 mg disintegrating 8 mg PO Q8H PRN nausea and 06/01/24 Unknown Rx tablet vomiting #20 tabs budesonide-formoterol HFA 160 2 puff inhalation BID 07/13/24 Unknown History mcg-4.5 mcg/actuation aerosol inhaler gabapentin 300 mg capsule 300 mg PO DAILY 07/13/24 Unknown History losartan 25 mg tablet 25 mg PO DAILY 07/13/24 Unknown History oxycodone-acetaminophen 5 mg-325 1 tab PO Q8H PRN PRN pain 07/13/24 Unknown History mg tablet sevelamer carbonate 800 mg tablet 800 mg PO 4X/DAY 07/13/24 Unknown History tizanidine 2 mg tablet 2 mg PO TID PRN 07/13/24 Unknown History vitamin B complex-vitamin C-folic 1 tab PO DAILY 07/13/24 Unknown History acid 0.8 mg tablet (Shannon-Dia) Allergy/AdvReac Type Severity Reaction Status Date / Time lorazepam Allergy Other Verified 07/13/24 10:43 Penicillins Allergy Itching Verified 07/13/24 10:43 poison ever extract Allergy Itching Verified 07/13/24 10:43 Family History Mother CVA (cerebral vascular accident) Father CAD (coronary artery disease) Hypertension Cancer Prostate Other Brain aneurysm Heart disease Prostate CA Surgical History Status post laminectomy History of carpal tunnel surgery History of herniorrhaphy Hx of cholecystectomy Hx of appendectomy Social History household members: spouse Smoking Status: Former smoker alcohol intake: current alcohol intake frequency: 3 or more drinks per day substance use type: does not use Vital Signs Vital Signs Vital Signs: 07/16/24 12:17 07/16/24 13:00 07/16/24 13:03 Temperature Temperature Source Pulse Rate 73 68 Pulse Strength Respiratory Rate 14 13 Respiratory Effort Normal Non-Labored Respiratory Depth Normal Respiratory Pattern Normal Normal Blood Pressure 129/86 H Blood Pressure Mean 100 Blood Pressure Source Monitor Blood Pressure Position Semi-Fowlers Blood Pressure Location Right Arm Pulse Ox 100 Oxygen Delivery Method Nasal Cannula Bi-pap Oxygen Flow Rate (L/min) 5 Fraction of Inspired Oxygen (FIO2) 30 07/16/24 13:03 07/16/24 14:00 07/16/24 14:23 Temperature Temperature Source Pulse Rate 73 68 Pulse Strength Respiratory Rate 12 13 Respiratory Effort Respiratory Depth Respiratory Pattern Normal Blood Pressure 117/80 Blood Pressure Mean 92 Blood Pressure Source Monitor Blood Pressure Position Semi-Fowlers Blood Pressure Location Right Arm Pulse Ox 100 100 94 Oxygen Delivery Method Nasal Cannula Oxygen Flow Rate (L/min) 5 4.5 Fraction of Inspired Oxygen (FIO2) 30 07/16/24 15:36 07/16/24 16:00 07/16/24 16:01 Temperature 96.3 F L Temperature Source Temporal Pulse Rate 99 Pulse Strength Respiratory Rate 20 H Respiratory Effort Normal Non-Labored Respiratory Depth Normal Respiratory Pattern Normal Blood Pressure 110/95 H Blood Pressure Mean 100 Blood Pressure Source Monitor Blood Pressure Position Sitting Blood Pressure Location Right Arm Pulse Ox 99 99 Oxygen Delivery Method Nasal Cannula Nasal Cannula Oxygen Flow Rate (L/min) 5 5 4 Fraction of Inspired Oxygen (FIO2) 07/16/24 18:00 07/16/24 19:00 07/16/24 19:28 Temperature 97.2 F L Temperature Source Temporal Pulse Rate 99 85 84 Pulse Strength Respiratory Rate 23 H 20 H Respiratory Effort Respiratory Depth Respiratory Pattern Normal Blood Pressure 119/96 H Blood Pressure Mean 103 Blood Pressure Source Monitor Blood Pressure Position Semi-Fowlers Blood Pressure Location Right Arm Pulse Ox 99 Oxygen Delivery Method Nasal Cannula Oxygen Flow Rate (L/min) 5 Fraction of Inspired Oxygen (FIO2) 07/16/24 19:28 07/16/24 20:00 07/16/24 20:00 Temperature 97.2 F L Temperature Source Temporal Pulse Rate 79 69 Pulse Strength Respiratory Rate 18 16 Respiratory Effort Normal Non-Labored Respiratory Depth Normal Respiratory Pattern Normal Blood Pressure 145/80 H Blood Pressure Mean 101 Blood Pressure Source Monitor Blood Pressure Position Semi-Fowlers Blood Pressure Location Right Arm Pulse Ox 92 95 97 Oxygen Delivery Method Nasal Cannula Nasal Cannula Nasal Cannula Oxygen Flow Rate (L/min) 4.5 4 4 Fraction of Inspired Oxygen (FIO2) 07/16/24 22:00 07/16/24 23:00 07/16/24 23:23 Temperature Temperature Source Pulse Rate 80 79 Pulse Strength Normal (2+) Respiratory Rate 14 Respiratory Effort Respiratory Depth Respiratory Pattern Normal Blood Pressure Blood Pressure Mean Blood Pressure Source Blood Pressure Position Blood Pressure Location Pulse Ox 99 Oxygen Delivery Method Oxygen Flow Rate (L/min) Fraction of Inspired Oxygen (FIO2) 30 07/17/24 00:00 07/17/24 02:50 07/17/24 03:00 Temperature Temperature Source Pulse Rate 81 64 62 Pulse Strength Respiratory Rate 18 16 Respiratory Effort Normal Non-Labored Respiratory Depth Normal Respiratory Pattern Normal Normal Blood Pressure Blood Pressure Mean Blood Pressure Source Blood Pressure Position Blood Pressure Location Pulse Ox 96 98 Oxygen Delivery Method Bi-pap Oxygen Flow Rate (L/min) Fraction of Inspired Oxygen (FIO2) 30 30 07/17/24 04:00 07/17/24 05:34 07/17/24 07:37 Temperature Temperature Source Pulse Rate 59 L 66 74 Pulse Strength Respiratory Rate 13 20 H Respiratory Effort Respiratory Depth Normal Respiratory Pattern Normal Normal Blood Pressure Blood Pressure Mean Blood Pressure Source Blood Pressure Position Blood Pressure Location Pulse Ox 97 98 Oxygen Delivery Method Bi-pap Oxygen Flow Rate (L/min) Fraction of Inspired Oxygen (FIO2) 30 30 07/17/24 07:37 07/17/24 09:00 07/17/24 09:00 Temperature 97.1 F L Temperature Source Temporal Pulse Rate 99 Pulse Strength Respiratory Rate 20 H Respiratory Effort Normal Non-Labored Respiratory Depth Respiratory Pattern Blood Pressure 110/77 Blood Pressure Mean 88 Blood Pressure Source Monitor Blood Pressure Position Semi-Fowlers Blood Pressure Location Right Arm Pulse Ox 95 97 Oxygen Delivery Method Nasal Cannula Nasal Cannula Nasal Cannula Oxygen Flow Rate (L/min) 4.5 5 4.5 Fraction of Inspired Oxygen (FIO2) 07/17/24 10:00 Temperature Temperature Source Pulse Rate Pulse Strength Normal (2+) Respiratory Rate Respiratory Effort Respiratory Depth Respiratory Pattern Blood Pressure Blood Pressure Mean Blood Pressure Source Blood Pressure Position Blood Pressure Location Pulse Ox Oxygen Delivery Method Oxygen Flow Rate (L/min) Fraction of Inspired Oxygen (FIO2) Weight Weight: 92.1 kg Body Mass Index (BMI) 28.4 EEG Results Procedure Details EEG Procedure Details: ZIYAD WALLY BAER Jr. is a 69 year old M with a past medical history of , who presents for evaluation of Electroencephalogram on DATE at TIME Physical Exam Narrative -? General: Laying comfortably in bed; in no acute distress. -? HENT: Normal oropharynx and mucosa. Normal external appearance of ears and nose. Exophthalmos. -? Neck: Supple, no pain or tenderness -? CV:? No peripheral edema. -? Pulmonary:? Normal respiratory effort. -? Ext: No cyanosis, edema, or deformity -? Skin: No rash. Normal palpation of skin.? -? Musculoskeletal: full range of motion; no joint tenderness. Normal digits and nails by inspection. No clubbing. -? NEURO: -? Mental Status: The patient was alert and oriented to place and time, poorly to situation. Pt is tangential, perseverates on tasks -? Language: speech is dysarthric.? Naming, repetition, fluency, and comprehension intact. -? Cranial Nerves: R pupil 6mm and nonreactive, L pupil 4mm and brisk. EOMI, visual morejon full, R naso labial fold flattening, facial sensation intact, hearing intact, tongue midline, no evidence of atrophy or fibrillations. -? Motor: poor effort but drift b/l to bed on b/l UE; b/l LE able to bend his knees and wiggle toes but unable to comply with directionsWithdraw on the R better than L to noxious stim gross asterixis present -? Sensation- Intact to light touch bilaterally -? Coordination: No dysmetria on [id number], finger follow finger or [id number]. -? Gait- deferred Lab / Micro Data 07/17/24 07:25 07/17/24 07:25 Labs: Laboratory Results - last 24 hr 07/16/24 10:05: Haptoglobin 331 07/17/24 07:25: WBC 8.5, RBC 2.39 L, Hgb 8.5 L, Hct 27.2 L, MCV 113.8 H, MCH 35.6 H, MCHC 31.3 L, RDW Std Deviation 63.3 H, RDW Coeff of Justine 15.2 H, Plt Count 109 L, MPV 9.0, Immature Gran % (Auto) 1.400 H, Neut % (Auto) 78.1 H, Lymph % (Auto) 12.3 L, [place] % (Auto) 7.3, Eos % (Auto) 0.8, Baso % (Auto) 0.1, Absolute Neuts (auto) 6.6, Absolute Lymphs (auto) 1.04, Nucleated RBC % 0, Sodium 139, Potassium 4.0, Chloride 105, Carbon Dioxide 29.0, Anion Gap 5, BUN 26 H, Creatinine 2.70 H, Estim Creat Clear Calc 30.80, Est GFR (MDRD) Af Amer 30 L, Est GFR (MDRD) Non-Af 25 L, BUN/Creatinine Ratio 9.6 L, Glucose 86, Calcium 10.5 H, Total PSA 1.86 Micro: Microbiology 07/13/24 15:20 Blood Culture (Wb) - Anticubital Left Blood Culture - Preliminary No growth in 48 hours. Imaging Radiology Impression Brain CT 07/17/24 07:59 IMPRESSION: Chronic involutional changes of the brain. Partial opacification of the left maxillary sinus. Electronically Signed: Ayad Sexton MD at 8:44 EDT , Chest X-Ray 07/17/24 08:04 IMPRESSION: Mild increased markings at the lung bases suggestive of atelectasis and/or scarring superimposed on mild CHF. Electronically Signed: Ayad Sexton MD at 9:02 EDT , Active Medications Active Medications Active Medications: Current Medications Generic Name Dose Route Start Last Admin Trade Name Freq PRN Reason Stop Dose Admin Acetaminophen 650 mg 07/13/24 16:26 07/14/24 20:14 Acetaminophen 325 Mg Tablet PO 650 mg Q6H PRN PRN Administration Pain 1-10 Or Fever >100.7 Albuterol Sulfate 2.5 mg 07/13/24 19:35 Albuterol 2.5 Mg/3 Ml Vial.Neb. INHALATION Q2H PRN PRN SOB &/OR WHEEZING Albuterol/Ipratropium 3 ml 07/13/24 19:45 07/17/24 07:37 Ipratropium/Albuterol Sulfate 3 Ml Ampul.Neb INHALATION 3 ml Q6HWA.RT VERONICA Administration Apixaban 5 mg 07/13/24 22:00 07/17/24 09:13 Apixaban 5 Mg Tablet PO 5 mg BID VERONICA Administration Baclofen 10 mg 07/13/24 19:21 07/16/24 22:44 Baclofen 10 Mg Tablet PO 10 mg TID PRN Administration muscle spasm Budesonide 0.5 mg 07/13/24 20:00 07/17/24 07:37 Budesonide Respules 0.5 Mg/2 Ml Ampul.Neb. INHALATION 0.5 mg Q12H.RT VERONICA Administration Bupropion HCl 75 mg 07/14/24 10:00 07/17/24 09:23 Bupropion 75 Mg Tablet PO 75 mg DAILY VERONICA Administration Colestipol HCl 1 gm 07/14/24 10:00 07/17/24 09:12 Colestipol 1 Gm Tablet PO 1 gm DAILY VERONICA Administration Doxycycline Monohydrate 100 mg 07/17/24 10:00 Doxycycline 100 Mg Capsule PO BID VERONICA Escitalopram Oxalate 20 mg 07/14/24 10:00 07/17/24 09:22 Escitalopram Oxalate 20 Mg Tablet PO 20 mg DAILY VERONICA Administration Ferrous Sulfate 325 mg 07/14/24 12:00 07/16/24 12:45 Ferrous Sulfate 325 Mg Tablet PO 325 mg DAILY@1200 VERONICA Administration Guaifenesin 1,200 mg 07/13/24 22:00 07/17/24 09:23 Guaifenesin 1,200 Mg Tablet PO 1,200 mg BID VERONICA Administration Hydralazine HCl 10 mg 07/13/24 19:41 Hydralazine 20 Mg/Ml Vial IV Q6H PRN PRN SBP>160 Protocol Cefepime HCl 1 gm/ Sodium 50 mls @ 100 mls/hr 07/14/24 15:00 07/16/24 16:26 Chloride IV Infused Q24H VERONICA Infusion Ondansetron HCl 4 mg 07/13/24 16:26 07/15/24 05:26 Ondansetron 4 Mg/2 Ml Vial IV 4 mg Q8H PRN PRN Administration NAUSEA/VOMITING Oxycodone HCl 5 mg 07/13/24 16:26 07/16/24 22:44 Oxycodone 5 Mg Tablet PO 5 mg Q4H PRN PRN Administration Pain Score 4-10 Quetiapine Fumarate 50 mg 07/16/24 22:00 07/16/24 22:44 Quetiapine 25 Mg Tablet PO 50 mg QHS VERONICA Administration Protocol Senna/Docusate Sodium 2 tablet 07/13/24 16:26 07/14/24 09:16 Senna/Docusate Sodium 1 Tablet PO 2 tablet BID PRN Administration Constipation Sevelamer Carbonate 800 mg 07/13/24 22:00 07/17/24 09:12 Sevelamer Carbonate 800 Mg Tablet PO 800 mg 0800,1200,1700,2200 VERONICA Administration Sodium Chloride 10 - 40 ml 07/13/24 17:31 07/16/24 12:09 0.9% Saline Lock 10 Ml Syringe IV 20 ml UD PRN Administration SALINE FLUSH
[2024-07-17] MEDS: Doxycycline 100 MG CAPSULE PO ×2 (12:28→22:03)
[2024-07-17] MEDS: Ferrous Sulfate 325 MG Tablet PO (12:28)
--- NOTE | 2024-07-17 13:32 | MRI_ITS ---
STUDY: MRI BRAIN WITHOUT CONTRAST REASON FOR EXAM: Male, 69 years old. Acute encephalopathy -- Confusion and disorientation. COMPARE TO CT TECHNIQUE: Standardized multiplanar fat and water weighted pulse sequences were obtained. COMPARISON: CT of the brain July 17, 2024 MRI of the brain July 25, 2020 FINDINGS: Moderate atrophy and minor periventricular white matter disease most likely chronic small vessel ischemic changes without mass effect or restricted diffusion . Normal bilateral basal ganglia. Normal thalami. There is no extra-axial fluid accumulation. Normal flow voids within the major intracranial circulation suggesting patency by spin echo criteria. Normal sella turcica, pituitary gland, infundibular stalk, optic chiasm and hypothalamus. Normal tectal plate and pineal gland. Normal midbrain, jazzmine and medulla. Mild cerebellar atrophy.. Normal basal cisterns. Normal bilateral temporal bones. Normal bilateral internal auditory canals. No demonstrated orbital abnormality, within the constraints of a routine brain study. Moderate mucosal thickening of left maxillary sinus and minor mucosal thickening of the ethmoid sinuses Normal calvarium and skull base. Normal visualized soft tissue structures. Normal visualized upper cervical spine. MRI/Brain without Contrast IMPRESSION: Moderate atrophy and minor periventricular white matter ischemic change without evidence for acute infarct. Electronically Signed: Dennis Dinero MD at 17:42 EDT ,
--- NOTE | 2024-07-17 13:43 | PCM.PN.REN ---
Subjective Subjective Somewhat confused. Neurology on consult. Blood pressure borderline. Objective Data Objective Data Vital Signs: Vital Signs Temp Pulse Resp BP Pulse Ox O2 Del Method O2 Flow Rate 97.1 F L 99 20 H 110/77 97 Nasal Cannula 4.5 07/17/24 09:00 07/17/24 09:00 07/17/24 09:00 07/17/24 09:00 07/17/24 09:00 07/17/24 09:00 07/17/24 09:00 FiO2 30 07/17/24 05:34 Oxygen Flow Rate (L/min) 4.5 Oxygen Delivery Method Nasal Cannula Weight: 92.1 kg Body Mass Index (BMI) 28.4 Intake & Output: Intake and Output for Last 24 Hours 07/15/24 07/16/24 07/17/24 23:59 23:59 23:59 Intake Total 665 / 665 505 / 505 0 / 0 Output Total 720 / 720 2890 / 3040 850 / 850 Balance -55 / -55 -2385 / -2535 -850 / -850 Lab / Micro Data 07/17/24 07:25 07/17/24 07:25 Labs: Laboratory Results - last 24 hr 07/16/24 10:05: Haptoglobin 331 07/17/24 07:25: WBC 8.5, RBC 2.39 L, Hgb 8.5 L, Hct 27.2 L, MCV 113.8 H, MCH 35.6 H, MCHC 31.3 L, RDW Std Deviation 63.3 H, RDW Coeff of Justine 15.2 H, Plt Count 109 L, MPV 9.0, Immature Gran % (Auto) 1.400 H, Neut % (Auto) 78.1 H, Lymph % (Auto) 12.3 L, [place] % (Auto) 7.3, Eos % (Auto) 0.8, Baso % (Auto) 0.1, Absolute Neuts (auto) 6.6, Absolute Lymphs (auto) 1.04, Nucleated RBC % 0, Sodium 139, Potassium 4.0, Chloride 105, Carbon Dioxide 29.0, Anion Gap 5, BUN 26 H, Creatinine 2.70 H, Estim Creat Clear Calc 30.80, Est GFR (MDRD) Af Amer 30 L, Est GFR (MDRD) Non-Af 25 L, BUN/Creatinine Ratio 9.6 L, Glucose 86, Calcium 10.5 H, Total PSA 1.86 Micro: Microbiology 07/13/24 15:20 Blood Culture (Wb) - Anticubital Left Blood Culture - Preliminary No growth in 48 hours. 07/14/24 05:08 Sputum, Expectorated/Coughed Gram Stain - Final 07/14/24 05:08 Sputum, Expectorated/Coughed Respiratory Culture - Final 07/14/24 09:20 Mucosa - Nose Coronavirus COVID-19 PCR - Final 07/14/24 04:29 Urine, Random Legionella Antigen - Final 07/14/24 04:29 Urine, Random Streptococcus pneumoniae Antigen (M - Final 07/13/24 16:35 Mucosa - Nasopharyngeal Respiratory Panel (PCR) - Final 07/13/24 21:54 Nasal Secretion SARS-CoV-2 Antigen (Rapid) - Final Radiography Diagnostic Testing: Radiology Impression Brain CT 07/17/24 07:59 IMPRESSION: Chronic involutional changes of the brain. Partial opacification of the left maxillary sinus. Electronically Signed: Ayad Sexton MD at 8:44 EDT , Chest X-Ray 07/17/24 08:04 IMPRESSION: Mild increased markings at the lung bases suggestive of atelectasis and/or scarring superimposed on mild CHF. Electronically Signed: Ayad Sexton MD at 9:02 EDT , Physical Exam Narrative Alert awake oriented x 3 no obvious distress s1s2 no murmurs lungs clear abdomen soft, nontender Trace nonpitting edema bilateral lower legs. Redness left lower leg Tunneled dialysis catheter dressing clean, dry and intact Assessment & Plan Assessment/Plan (1) ESRD (end stage renal disease): PLAN: - ESRD secondary to biopsy-proven ATN with no noted recovery. Currently on hemodialysis Saturday, , Saturday schedule. -Left lower extremity cellulitis; IV antibiotic. Venous Duplex no evidence of DVT -Pneumonia; on IV antibiotics. -History of hypertension; blood pressures are low side but stable. He is not on any antihypertensives now. CT chest report reviewed reviewed. Appears to have severe osteopenia, loss of bone mass. Most likely related to immobilization. No evidence of myeloma on kidney biopsy done earlier this year. PSA is normal. Serum protein electrophoresis ordered, results pending.
--- NOTE | 2024-07-17 13:56 | PCMCONS.TICU ---
HPI Consult Data Date of Consult: 07/17/24 HPI Narrative HPI Narrative: ZIYAD BAER, is a 69 M who presents [facility] Medical History Essential hypertension Atrial flutter Hx of pulmonary embolus Obstructive sleep apnea FELA (obstructive sleep apnea) Hypertension Cancer Psoriasis Home Medications ?Medication ?Instructions ?Recorded ?Last Taken ?Type amlodipine 10 mg tablet 10 mg PO QHS Blood pressure 10/14/19 10/17/20 History escitalopram oxalate 20 mg tablet 20 mg PO DAILY Check with primary 10/14/19 10/22/22 History doctor bupropion HCl 75 mg tablet 75 mg PO DAILY Depression 09/18/22 Unknown History bethanechol chloride 25 mg tablet 25 mg PO TID 30 days #90 tabs 01/07/23 Unknown Rx albuterol sulfate 90 mcg/actuation 2 puff inhalation Q6H sob 01/14/23 Unknown History aerosol inhaler acetaminophen 325 mg tablet 650 mg (2 x 325 mg) PO Q6H PRN PRN 01/17/23 Unknown Rx Pain 1-10 Or Fever>100.7 #0 tabs ferrous sulfate 325 mg (65 mg 325 mg PO DAILY@1200 Check with 03/08/23 Unknown History iron) tablet (FeroSul) primary doctor fluticasone propionate 50 2 spray NASAL DAILY Check with 03/08/23 Unknown History mcg/actuation nasal primary doctor spray,suspension lidocaine 5 % topical patch 1 patch topical 0800 Check with 03/08/23 Unknown History primary doctor magnesium chloride 64 mg 250 mg PO DAILY Check with primary 03/08/23 Unknown History (magnesium chloride) doctor tablet,delayed release (Mag 64) vit A 300 mcg-C 200 mg-E 27 1 cap PO DAILYCM Check with 03/08/23 Unknown History mg-lutein 2 mg and minerals tablet primary doctor (Healthy Eyes) apixaban 5 mg tablet (Eliquis) 5 mg PO BID 30 days #60 tabs 03/13/23 Unknown Rx sennosides 8.6 mg-docusate sodium 2 tab PO BID #0 tabs 03/13/23 Unknown Rx 50 mg tablet (Stool Softener-Stimulant Laxative) cholecalciferol (vitamin D3) 1,250 1,250 mcg PO QWEEK 06/19/23 Unknown History mcg (50,000 unit) capsule colestipol 1 gram tablet 1 g PO DAILY 06/19/23 Unknown History ketoconazole 2 % topical cream 1 applic topical DAILY 06/19/23 Unknown History lisinopril 40 mg tablet 40 mg PO QHS 06/19/23 Unknown History teriparatide 20 mcg/dose (600 20 mcg subcut DAILY 06/19/23 Unknown History mcg/2.4 mL) subcutaneous pen injector (Forteo) baclofen 10 mg tablet 10 mg PO TID PRN muscle spasm 07/26/23 Unknown History carvedilol 25 mg tablet 25 mg PO BID Check with primary 07/26/23 Unknown History doctor cyclobenzaprine 5 mg tablet 5 mg PO TID PRN muscle spasm 07/26/23 Unknown History furosemide 20 mg tablet 20 mg PO DAILY PRN edema 07/26/23 Unknown History potassium chloride 10 mEq 10 meq PO DAILY PRN WITH LASIX 07/26/23 Unknown History tablet,extended release sildenafil 100 mg tablet 100 mg PO DAILY PRN SEE PCP 07/26/23 Unknown History cefuroxime axetil 500 mg tablet 500 mg PO BID #20 tabs 06/01/24 Unknown Rx metronidazole 500 mg tablet 500 mg PO BID #20 tabs 06/01/24 Unknown Rx ondansetron 8 mg disintegrating 8 mg PO Q8H PRN nausea and 06/01/24 Unknown Rx tablet vomiting #20 tabs budesonide-formoterol HFA 160 2 puff inhalation BID 07/13/24 Unknown History mcg-4.5 mcg/actuation aerosol inhaler gabapentin 300 mg capsule 300 mg PO DAILY 07/13/24 Unknown History losartan 25 mg tablet 25 mg PO DAILY 07/13/24 Unknown History oxycodone-acetaminophen 5 mg-325 1 tab PO Q8H PRN PRN pain 07/13/24 Unknown History mg tablet sevelamer carbonate 800 mg tablet 800 mg PO 4X/DAY 07/13/24 Unknown History tizanidine 2 mg tablet 2 mg PO TID PRN 07/13/24 Unknown History vitamin B complex-vitamin C-folic 1 tab PO DAILY 07/13/24 Unknown History acid 0.8 mg tablet (Shannon-Dia) Allergy/AdvReac Type Severity Reaction Status Date / Time lorazepam Allergy Other Verified 07/13/24 10:43 Penicillins Allergy Itching Verified 07/13/24 10:43 poison ever extract Allergy Itching Verified 07/13/24 10:43 Family History Mother CVA (cerebral vascular accident) Father CAD (coronary artery disease) Hypertension Cancer Prostate Other Brain aneurysm Heart disease Prostate CA Surgical History Status post laminectomy History of carpal tunnel surgery History of herniorrhaphy Hx of cholecystectomy Hx of appendectomy Social History household members: spouse Smoking Status: Former smoker alcohol intake: current alcohol intake frequency: 3 or more drinks per day substance use type: does not use Objective Data Objective Data Vital Signs: Vital Signs Last response Temperature 36.2 C L 07/17/24 09:00 Temperature Source Temporal 07/17/24 09:00 Pulse Rate 99 07/17/24 09:00 Pulse Strength Normal (2+) 07/17/24 10:00 Respiratory Rate 20 H 07/17/24 09:00 Respiratory Effort Normal, Non-Labored 07/17/24 09:00 Respiratory Depth Normal 07/17/24 04:00 Respiratory Pattern Normal 07/17/24 05:34 Blood Pressure 110/77 07/17/24 09:00 Blood Pressure Mean 88 07/17/24 09:00 Blood Pressure Source Monitor 07/17/24 09:00 Blood Pressure Position Semi-Fowlers 07/17/24 09:00 Blood Pressure Location Right Arm 07/17/24 09:00 Pulse Ox 97 07/17/24 09:00 Oxygen Delivery Method Nasal Cannula 07/17/24 09:00 Oxygen Flow Rate (L/min) 4.5 07/17/24 09:00 Fraction of Inspired Oxygen (FIO2) 30 07/17/24 05:34 I&O: I&O Last 24 Hours 07/16/24 07/17/24 07/17/24 23:59 11:59 23:59 Intake Total 505 / 505 0 / 0 Output Total 2340 / 3040 350 / 850 500 / 850 Balance -1835 / -2535 -350 / -850 -500 / -850 I&O: Total Stay 07/13/24 10:42 thru 07/17/24 12:00 Intake Total 2575 Output Total 7570 Balance -8804 Current Meds Ordered / Administered: Current meds ordered / Administered Generic Name Dose Route Start Last Admin Trade Name Freq PRN Reason Stop Dose Admin Acetaminophen 650 mg 07/13/24 16:26 07/14/24 20:14 Acetaminophen 325 Mg Tablet PO 650 mg Q6H PRN PRN Administration Pain 1-10 Or Fever >100.7 Albuterol Sulfate 2.5 mg 07/13/24 19:35 Albuterol 2.5 Mg/3 Ml Vial.Neb. INHALATION Q2H PRN PRN SOB &/OR WHEEZING Albuterol/Ipratropium 3 ml 07/13/24 19:45 07/17/24 07:37 Ipratropium/Albuterol Sulfate 3 Ml Ampul.Neb INHALATION 3 ml Q6HWA.RT VERONICA Administration Apixaban 5 mg 07/13/24 22:00 07/17/24 09:13 Apixaban 5 Mg Tablet PO 5 mg BID VERONICA Administration Baclofen 10 mg 07/13/24 19:21 07/16/24 22:44 Baclofen 10 Mg Tablet PO 10 mg TID PRN Administration muscle spasm Budesonide 0.5 mg 07/13/24 20:00 07/17/24 07:37 Budesonide Respules 0.5 Mg/2 Ml Ampul.Neb. INHALATION 0.5 mg Q12H.RT VERONICA Administration Bupropion HCl 75 mg 07/14/24 10:00 07/17/24 09:23 Bupropion 75 Mg Tablet PO 75 mg DAILY VERONICA Administration Colestipol HCl 1 gm 07/14/24 10:00 07/17/24 09:12 Colestipol 1 Gm Tablet PO 1 gm DAILY VERONICA Administration Doxycycline Monohydrate 100 mg 07/17/24 10:00 07/17/24 12:28 Doxycycline 100 Mg Capsule PO 100 mg BID VERONICA Administration Ferrous Sulfate 325 mg 07/14/24 12:00 07/17/24 12:28 Ferrous Sulfate 325 Mg Tablet PO 325 mg DAILY@1200 VERONICA Administration Guaifenesin 1,200 mg 07/13/24 22:00 07/17/24 09:23 Guaifenesin 1,200 Mg Tablet PO 1,200 mg BID VERONICA Administration Hydralazine HCl 10 mg 07/13/24 19:41 Hydralazine 20 Mg/Ml Vial IV Q6H PRN PRN SBP>160 Protocol Cefepime HCl 1 gm/ Sodium 50 mls @ 100 mls/hr 07/14/24 15:00 07/16/24 16:26 Chloride IV Infused Q24H VERONICA Infusion Sodium Chloride 1,000 mls @ 100 mls/hr 07/17/24 13:30 IV 07/17/24 23:29 .Q10H VERONICA Lactulose 10 gm 07/17/24 22:00 Lactulose 20 Gm/30 Ml Udc PO BID VERONICA Ondansetron HCl 4 mg 07/13/24 16:26 07/15/24 05:26 Ondansetron 4 Mg/2 Ml Vial IV 4 mg Q8H PRN PRN Administration NAUSEA/VOMITING Oxycodone HCl 5 mg 07/13/24 16:26 07/16/24 22:44 Oxycodone 5 Mg Tablet PO 5 mg Q4H PRN PRN Administration Pain Score 4-10 Quetiapine Fumarate 25 mg 07/17/24 13:32 Quetiapine 25 Mg Tablet PO QHS PRN AGITATION Protocol Senna/Docusate Sodium 2 tablet 07/13/24 16:26 07/14/24 09:16 Senna/Docusate Sodium 1 Tablet PO 2 tablet BID PRN Administration Constipation Sevelamer Carbonate 800 mg 07/13/24 22:00 07/17/24 12:29 Sevelamer Carbonate 800 Mg Tablet PO Not Given 0800,1200,1700,2200 [facility] Sodium Chloride 10 - 40 ml 07/13/24 17:31 07/16/24 12:09 0.9% Saline Lock 10 Ml Syringe IV 20 ml UD PRN Administration SALINE FLUSH Lab / Micro Data 07/17/24 07:25 07/17/24 07:25 Labs: Laboratory Results - last 24 hr 07/16/24 10:05: Haptoglobin 331 07/17/24 07:25: WBC 8.5, RBC 2.39 L, Hgb 8.5 L, Hct 27.2 L, MCV 113.8 H, MCH 35.6 H, MCHC 31.3 L, RDW Std Deviation 63.3 H, RDW Coeff of Justine 15.2 H, Plt Count 109 L, MPV 9.0, Immature Gran % (Auto) 1.400 H, Neut % (Auto) 78.1 H, Lymph % (Auto) 12.3 L, [place] % (Auto) 7.3, Eos % (Auto) 0.8, Baso % (Auto) 0.1, Absolute Neuts (auto) 6.6, Absolute Lymphs (auto) 1.04, Nucleated RBC % 0, Sodium 139, Potassium 4.0, Chloride 105, Carbon Dioxide 29.0, Anion Gap 5, BUN 26 H, Creatinine 2.70 H, Estim Creat Clear Calc 30.80, Est GFR (MDRD) Af Amer 30 L, Est GFR (MDRD) Non-Af 25 L, BUN/Creatinine Ratio 9.6 L, Glucose 86, Calcium 10.5 H, Total PSA 1.86 Imaging Radiology Impression Brain CT 07/17/24 07:59 IMPRESSION: Chronic involutional changes of the brain. Partial opacification of the left maxillary sinus. Electronically Signed: Ayad Sexton MD at 8:44 EDT , Chest X-Ray 07/17/24 08:04 IMPRESSION: Mild increased markings at the lung bases suggestive of atelectasis and/or scarring superimposed on mild CHF. Electronically Signed: Ayad Sexton MD at 9:02 EDT , Assessment and Plan . Assessment and plan: HPI 69 yo chronically ill obese man w/ ESRD admitted 07/13/24 w/ dyspnea and hypoxemia. Imaging, including CTA, reveals some bibasilar ATX/infiltrate. He has received empiric IV ABX. He also received HD w/ UF T/R/Sat. He is currently breathing 4 LPM O2 at rest, apparently an amount he requires chronically. He also uses CPAP/BIPAP w/ sleep at night chronically. ABG reveals chronic compensated hypercapnia. He also has ASCVD, chronic AF, FLEA, h/o VTED, former tobacco use. He underwent barium swallow today which apparently reveals significant O/P dysphagia. In addition, he has had progressive confusion, dysarthria, and motor dysfunction over the past few days. Neurology opinion noted. MRI brain significant for SVOD only. He is currently awake and alert. Breathing 4 LPM O2. HD stable. HR irreg. EXAM GEN NAD VS as above HEENT o/p clear NECK obese COR irreg CHEST coarse, decreased dependently ABD soft, obese EXT minimal edema SKIN w/d RAFFY NF grossly ASSESSMENT 1. Dyspnea/hypoxemia - largely chronic 2. Dependent ATX 3. (?) aspiration into airway 4. Delirium / encephalopathy 5. ESRD 6. Obesity / FELA - chronic hypercapnia 7. Chronic AF 8. H/O VTED 9. ASCVD 10. Former tobacco use 11. 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
[2024-07-17 14:04] LABS: CPK Total, Creatine Kinase 21 U/L (39-308)
[2024-07-17] MEDS: 0.9% Normal Saline (1000mL) 1,000 ML 100 ML IV (14:05)
[2024-07-17 14:08] LABS: AST(SGOT) 10 U/L (15-37); Alanine Aminotransfer ALT/SGPT 11 U/L (16-61); Alkaline Phosphatase 99 U/L (45-117); Bilirubin, Direct 0.12 mg/dL (0.00-0.30); Globulin 2.8 g/dL (2.2-4.2); Magnesium 2.1 mg/dL (1.6-2.6); Phosphorus 2.7 mg/dL (2.5-4.9); Protein, Total 4.8 g/dL (6.4-8.2)
[2024-07-17] MEDS: Lactulose 20 GM/30 ML UDC PO (14:09)
--- NOTE | 2024-07-17 14:35 | PCM.PN.ID ---
Physical Exam Narrative Feeling better, remains in icu, no fever, less dyspnea/cough Const alert and no apparent distress General Appearance: cooperative Resp Auscultation: diminished lung sounds Cardio regular rate and regular rhythm GI soft to palpation, non-tender and non-distended Skin no rashes or lesions noted ID ID: Route of nutrition/ use of supplements: [] Nutritional Intake: [] IV Site: [] Calderon Catheter: [] Assessment & Plan Assessment/Plan (1) ESRD (end stage renal disease): (2) Left leg cellulitis: (3) Acute hypoxemic respiratory failure: PLAN: Feeling a little better, will cont empiric cefepime for now, plan on short course (5-6 days total abx). will follow (4) Chronic hypoxemic respiratory failure:
--- NOTE | 2024-07-17 15:46 | CASEMGMT ---
Social Work [facility] is unable to accept pt. Phone call to pt's HCPOA Yvonne and notified. After lengthy discussion regarding care needs, Yvonne states she feels like she will be able to care for pt at home and provide 24 hour care. Yvonne is currently on vacation and will be back on Saturday. Yvonne to visit pt on Saturday to discuss discharge plan and make final decision. Yvonne made aware that the SNF list has been left in pt's room for review in the event pt decides he wants a SNF. SW to follow up on Saturday for dc planning. TEJAS Lindo
[2024-07-17] MEDS: Cefepime HCl 1 GM in 0.9% Normal Saline (50mL MB+) 50 ML IV (16:45)
[2024-07-17] MEDS: oxyCODONE 5 MG Tablet PO (22:03)
[2024-07-17] MEDS: Baclofen 10 MG Tablet PO (22:03)
[2024-07-17] MEDS: Lactulose 20 GM/30 ML UDC 10 GM PO (22:04)
[2024-07-18] VITALS (23 sets, daily range): BP systolic 108–202; BP diastolic 59–112; PULSE 68–96; RESP 14–27; TEMP 35.8–36.7; O2SAT 92–100; BMI 28.3; BMI 27.7
[2024-07-18] MEDS: PureFlow B 2K Dialysis Soln 1 BAG 6 BAG PF (05:56)
[2024-07-18] MEDS: 0.9% Normal Saline 1,000 ML IV.SOLN. 1000 ML OPERA.SITE (05:56)
[2024-07-18 06:15] LABS: Absolute Lymphocyte Count 0.85 X10^3/uL (0.83-4.51); Absolute Neutrophil Count 8.6 X10^3/uL (2.0-7.7); Basophil# 0.02 X10^3/uL; Basophil% 0.2 % (0-1); Eosinophil# 0.06 X10^3/uL; Eosinophils% 0.6 % (0-5); Hematocrit 29.5 % (40-54); Hemoglobin 9.2 g/dL (13.0-16.5); Lymphocyte # 0.85 X10^3/ul (0.83-4.51); Lymphocyte % 8.2 % (19-41); Mean Corp Hgb Conc 31.2 g/dL (32-36); Mean Corpuscular Hgb 34.8 pg (27.0-32.0); Mean Corpuscular Volume 111.7 fL (80-94); Mean Platelet Vol. 8.7 fl (6.2-12.0); Monocyte# 0.75 X10^3/uL; Monocyte% 7.2 % (0-10); NRBC Flagged by Analyzer 0 % (0-5); Neutrophil # 8.55 X10^3/uL (2.7-7.7); Platelet Count 133 K/mm3 (150-450); RBC Distribution Width CV 15.2 % (11.6-14.6); RBC Distribution Width SD 62.4 fl (35.1-43.9); Red Blood Count 2.64 M/mm3 (4.6-6.2); White Blood Count 10.4 K/mm3 (4.4-11.0)
--- NOTE | 2024-07-18 06:36 | PCM.HOSP.N ---
Hospitalist Note Patient with now copious stool output since lactulose start. Stool per staff is dark and sticky, concerning for bleed. Will obtain guiac and hold lactulose.
[2024-07-18] MEDS: Ipratropium/Albuterol Sulfate 3 ML AMPUL.NEB INHALATION ×3 (07:22→18:29)
[2024-07-18] MEDS: Budesonide Respules 0.5 MG/2 ML AMPUL.NEB. INHALATION ×2 (07:22→18:28)
[2024-07-18] MEDS: 0.9% Saline Lock 10 ML Syringe IV ×2 (09:58→13:10)
[2024-07-18] MEDS: Heparin 10,000 UNITS/10 ML Vial IV (09:59)
[2024-07-18 10:12] LABS: ALB/GLOB Ratio 0.8 RATIO (0.9-2.4); AST(SGOT) 7 U/L (15-37); Alanine Aminotransfer ALT/SGPT 10 U/L (16-61); Albumin, Serum 2.2 g/dL (3.2-5.0); Alkaline Phosphatase 107 U/L (45-117); Anion Gap 6 (5-15); BUN 31 mg/dL (7-18); BUN/Creat Ratio 10.1 RATIO (10-20); Calcium,Total 10.8 mg/dL (8.5-10.1); Chloride 105 mmol/L (98-107); Creatinine, Serum 3.08 mg/dL (0.70-1.30); EST Glomerular Filtration Rate 22 mL/min (>60); Est Glom Filt Rate - Afr Amer 26 mL/min (>60); Estimated Creatinine Clearance 24.79 ml/min; Globulin 2.9 g/dL (2.2-4.2); Glucose 94 mg/dL (74-106); Potassium 3.7 mmol/L (3.5-5.1); Protein, Total 5.1 g/dL (6.4-8.2); Sodium Level 139 mmol/L (136-145)
[2024-07-18] MEDS: Menthol/Lanolin/Calamine/Znox 113 GM Tube 1 APPLIC TOPICAL ×2 (10:15→22:17)
[2024-07-18] MEDS: Ampicillin/Sulbactam 3 GM in 0.9% Normal Saline (100mL MB+) 100 ML IV (10:15)
[2024-07-18] MEDS: Doxycycline 100 MG CAPSULE PO ×2 (10:16→22:18)
[2024-07-18] MEDS: Colestipol 1 GM TABLET PO (10:16)
[2024-07-18] MEDS: SEVELAMER CARBONATE 800 MG TABLET PO (10:16)
[2024-07-18] MEDS: APIXABAN 5 MG TABLET PO (10:17)
[2024-07-18] MEDS: buPROPion 75 MG Tablet PO (10:17)
--- NOTE | 2024-07-18 10:57 | PN.HOSP_ITS ---
Subjective Subjective Tolerating dialysis Objective Data Objective Data Vital Signs: Vital Signs Temp Pulse Resp BP Pulse Ox O2 Del Method O2 Flow Rate 96.7 F L 96 18 119/79 92 Nasal Cannula 4 07/18/24 10:00 07/18/24 10:00 07/18/24 10:00 07/18/24 10:00 07/18/24 10:00 07/18/24 10:00 07/18/24 10:00 FiO2 30 07/17/24 05:34 Oxygen Flow Rate (L/min) 4 Oxygen Delivery Method Nasal Cannula Weight: 198 lb Body Mass Index (BMI) 27.7 Intake & Output: Intake and Output for Last 24 Hours 07/17/24 07/18/24 07/19/24 03:59 03:59 03:59 Intake Total 505 / 505 368.33 / 368.33 Output Total 3040 / 3040 900 / 900 2340 / 2340 Balance -2535 / -2535 -531.67 / -531.67 -2340 / -2340 Lab / Micro Data 07/18/24 05:46 07/18/24 05:46 Labs: Laboratory Results - last 24 hr 07/17/24 07:25: Total Creatine Kinase 21 L 07/17/24 13:37: Phosphorus 2.7, Magnesium 2.1, Total Bilirubin 0.40, Direct Bilirubin 0.12, AST 10 L, ALT 11 L, Alkaline Phosphatase 99, Ammonia 26.0, Total Protein 4.8 L, Albumin 2.0 L, Globulin 2.8 07/18/24 05:46: WBC 10.4, RBC 2.64 L, Hgb 9.2 L, Hct 29.5 L, MCV 111.7 H, MCH 34.8 H, MCHC 31.2 L, RDW Std Deviation 62.4 H, RDW Coeff of Justine 15.2 H, Plt Count 133 L, MPV 8.7, Immature Gran % (Auto) 1.800 H, Neut % (Auto) 82.0 H, L ymph % (Auto) 8.2 L, [place] % (Auto) 7.2, Eos % (Auto) 0.6, Baso % (Auto) 0.2, A bsolute Neuts (auto) 8.6 H, Absolute Lymphs (auto) 0.85, Nucleated RBC % 0, Sodium 139, Potassium 3.7, Chloride 105, Carbon Dioxide 28.0, Anion Gap 6, BUN 31 H, Creatinine 3.08 H, Estim Creat Clear Calc 24.79, Est GFR (MDRD) Af Amer 26 L, Est GFR (MDRD) Non-Af 22 L, BUN/Creatinine Ratio 10.1, Glucose 94, Calcium 10.8 H, Total Bilirubin 0.60, AST 7 L, ALT 10 L, Alkaline Phosphatase 107, Total Protein 5.1 L, Albumin 2.2 L, Globulin 2.9, Albumin/Globulin Ratio 0.8 L Micro: Microbiology 07/18/24 06:30 Stool Stool Occult Blood (JEROME) - Final Occult Blood Positive 07/13/24 15:20 Blood Culture (Wb) - Anticubital Left Blood Culture - Preliminary No growth in 48 hours. 07/14/24 05:08 Sputum, Expectorated/Coughed Gram Stain - Final 07/14/24 05:08 Sputum, Expectorated/Coughed Respiratory Culture - Final 07/14/24 09:20 Mucosa - Nose Coronavirus COVID-19 PCR - Final 07/14/24 04:29 Urine, Random Legionella Antigen - Final 07/14/24 04:29 Urine, Random Streptococcus pneumoniae Antigen (M - Final 07/13/24 16:35 Mucosa - Nasopharyngeal Respiratory Panel (PCR) - Final 07/13/24 21:54 Nasal Secretion SARS-CoV-2 Antigen (Rapid) - Final Radiography Diagnostic Testing: Radiology Impression Brain MRI 07/17/24 13:32 IMPRESSION: Moderate atrophy and minor periventricular white matter ischemic change without evidence for acute infarct. Electronically Signed: Dennis Dinero MD at 17:42 EDT , Physical Exam Narrative General: Alert, Oriented x3, Cooperative, No apparent distress HEENT: Atraumatic, PERRLA, EOMI, Normocephalic Oral: Moist Mucosa Neck: Supple, No JVD Lungs: Diminished, Normal air movement, No rhonchi, No wheeze, No rales Cardiovascular: Regular rate, Regular Rhythm, Normal S1, Normal S2, No murmurs Abdomen: Soft, Non Tender, Non-Distended, No Hepato-splenomegaly Extremities: Edema, Capillary Refill Less than 3 Seconds Skin: No rashes, No breakdown, areas of chronic ecchymosis Musculoskeletal: No Tenderness to Palpation of Joints or Extremities Neurological: No focal neurological deficits, Motor Exam 5/5 strength throughout, Sensory exam intact to light touch and pain Psych/Mental Status: Flat Assessment & Plan Assessment/Plan (1) Acute hypoxemic respiratory failure: (2) Pneumonia of both lower lobes: (3) Hypokalemia: (4) Left leg cellulitis: PLAN: Plan Acute hypoxic respiratory failure secondary to volume overload/right lower lobe pneumonia: Chest x-ray and chest CTA individually reviewed. No evidence of pulmonary embolism. Bibasilar infiltrates present. Has thoracic and lumbar fusion with hardware. Continue vancomycin and Zosyn and azithromycin to cover MRSA, GNR including Pseudomonas and atypicals. COVID-19 PCR negative. Urinary antigens are negative. Respiratory panel negative. Gram stain pending. Continue incentive spirometry and PEP and Mucinex. Patient on BiPAP/NIPPV 07/15: Patient still short of breath and required 6 L of oxygen 07/16: On 5 L of oxygen. Breathing and respiratory status are gradually getting better. Sputum culture did not had enough specimen Therefore canceled. Will de-escalate the antibiotics patient had about 4 days of IV antibiotic therefore we will discontinue vancomycin. ID consulted. 07/17: Patient was seen by ID and recommended to continue cefepime and Zithromax. Zithromax was discontinued yesterday because of interaction with Seroquel which patient required for confusion/not able to tolerate BiPAP. Will change to doxycycline. Repeat chest x-ray was initially reviewed official report pending. Suboptimal x-ray, decreased volume especially on the left, rotated x-ray. Chronic scarring with bibasilar infiltrates. Thoracic and lumbar hardware. Tele-PCC consult 07/18/2024: Cefepime was discontinued and currently on doxycycline and Unasyn Left lower extremity cellulitis: Left leg is very tender. Covered with antibiotics as mentioned above. Venous duplex is ordered. Patient is on anticoagulant. Wound nurse to follow 07/15: Left leg feels better and patient can lift although weak, strength 4/5 at both knee joints 07/18/2024: Leg feels better today continue with antibiotics Acute encephalopathy with change in mental status, increased confusion, distraction, sometimes, disorientation, increased reaction time to respond and echolalia: Orientation cues. CT head was done which does not show acute abnormality but partial opacification of left maxillary sinus. Neurology consult. Hypokalemia -P.o. potassium given emergency department Serum magnesium 1.6 phosphorus 2.7. Patient is on hemodialysis. Potassium 3.4. 07/15: Mild hypokalemia but patient on hemodialysis. 07/16: K3.4. Acceptable K level as patient is on hemodialysis. End-stage renal disease -HD dependent -Continue home sevelamer -Consult nephrology -Patient is not compliant with diet -Patient does appear to be somewhat volume overloaded on exam Acute on chronic macrocytic anemia, multifactorial including CKD and chronic disease -H&H 8.4/26.5 decreased from 9.7/30.5%. Monitor CBC. 07/15: H&H 8.3/26%. Immature granulocytes 1.2%. Platelet count 104,000. Anemia workup ordered. 07/16: H&H 8.8/28%. Platelet count 120,000. Reticulocyte count 1.53 elevated. Immature reticulocyte fraction elevated therefore bone marrow active. Iron saturation and ferritin high. Overall suggestive of anemia of chronic disease History of thoracic compression fractures -Status post T7 laminectomy and decompression -Biopsies were taken at bedtime -Continue as needed pain medication once verified 07/18/2024: Fecal occult positive for blood, hemoglobin has actually been going up so we will monitor at this time. Will hold Eliquis 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 -Continue Eliquis History of A-fib/flutter -Patient is on no rate controlling medications as his fib/flutter is not conjoined with RVR -Hold Eliquis secondary to possible GI bleed Hypertension -Medications have not yet been verified for hypertension -Hold all antihypertensives -Blood pressures are currently on the low side -As needed hydralazine for systolic blood pressure greater than 160 Aortic aneurysm -Stable ascending aortic aneurysm noted on most recent CTA -4.4 cm -Control blood pressure -Recommend outpatient follow-up FELA -Will transition nocturnal CPAP once off BiPAP COPD -Patient had irreversibly moderately severe mixed ventilatory defect with symmetric reduction in diffusing capacity noted on his PFTs from March 2023 -FEV1 was 54% predicted -Nebulizers as above -Recommend outpatient follow-up with pulmonary medicine after discharge Depression/suicidal ideation -Continue home bupropion -Case management consulted -Patient has no current plan DVT: SCDs Charges/Coding Visit Charges Inpatient E&M: 25217 Subs Hosp L2
[2024-07-18] MEDS: Ondansetron 4 MG/2 ML Vial IV ×2 (13:09→21:05)
--- NOTE | 2024-07-18 14:50 | PN.CC_ITS ---
Objective Data Objective Data Vital Signs: Vital Signs Last response 3 Temperature 35.8 C L 07/18/24 12:00 Temperature Source Temporal 07/18/24 12:00 Pulse Rate 85 07/18/24 12:00 Pulse Strength Normal (2+) 07/18/24 08:50 Respiratory Rate 23 H 07/18/24 12:00 Respiratory Effort Normal, Non-Labored 07/18/24 14:00 Respiratory Depth Normal 07/18/24 14:00 Respiratory Pattern Normal 07/18/24 14:00 Blood Pressure 132/93 H 07/18/24 12:00 Blood Pressure Mean 106 07/18/24 12:00 Blood Pressure Source Monitor 07/18/24 12:00 Blood Pressure Position Semi-Fowlers 07/18/24 12:00 Blood Pressure Location Right Arm 07/18/24 12:00 Pulse Ox 98 07/18/24 12:00 Oxygen Delivery Method Nasal Cannula 07/18/24 14:00 Oxygen Flow Rate (L/min) 4.5 07/18/24 14:12 Fraction of Inspired Oxygen (FIO2) 30 07/17/24 05:34 I&O: I&O Last 24 Hours 3 07/17/24 07/18/24 07/18/24 23:59 11:59 23:59 Intake Total 318.33 / 368.33 162 / 312 150 / 312 Output Total 500 / 1150 2640 / 2840 200 / 2840 Balance -181.67 / -781.67 -2478 / -2528 -50 / -2528 I&O: Total Stay 3 07/13/24 10:42 thru 07/18/24 14:46 Intake Total 3205.33 Output Total 86525 Balance -7204.67 Current Meds Ordered / Administered: Current meds ordered / Administered 3 Generic Name Dose Route Start Last Admin Trade Name Freq PRN Reason Stop Dose Admin Acetaminophen 650 mg 07/13/24 16:26 07/14/24 20:14 Acetaminophen 325 Mg Tablet PO 650 mg Q6H PRN PRN Administration Pain 1-10 Or Fever >100.7 Albuterol Sulfate 2.5 mg 07/13/24 19:35 Albuterol 2.5 Mg/3 Ml Vial.Neb. INHALATION Q2H PRN PRN SOB &/OR WHEEZING Albuterol/Ipratropium 3 ml 07/13/24 19:45 07/18/24 12:20 Ipratropium/Albuterol Sulfate 3 Ml Ampul.Neb INHALATION 3 ml Q6HWA.RT VERONICA Administration Baclofen 10 mg 07/13/24 19:21 07/17/24 22:03 Baclofen 10 Mg Tablet PO 10 mg TID PRN Administration muscle spasm Budesonide 0.5 mg 07/13/24 20:00 07/18/24 07:22 Budesonide Respules 0.5 Mg/2 Ml Ampul.Neb. INHALATION 0.5 mg Q12H.RT VERONICA Administration Bupropion HCl 75 mg 07/14/24 10:00 07/18/24 10:17 Bupropion 75 Mg Tablet PO 75 mg DAILY VERONICA Administration Calamine/Phenol 1 applic 07/18/24 10:00 07/18/24 10:15 Menthol/Lanolin/Calamine/Znox 113 Gm Tube TOPICAL 1 applic BID VERONICA Administration Protocol Colestipol HCl 1 gm 07/14/24 10:00 07/18/24 10:16 Colestipol 1 Gm Tablet PO 1 gm DAILY VERONICA Administration Doxycycline Monohydrate 100 mg 07/17/24 10:00 07/18/24 10:16 Doxycycline 100 Mg Capsule PO 100 mg BID VERONICA Administration Hemodialysis Solution 6 bag 07/18/24 06:00 07/18/24 05:56 Pureflow B 2k Dialysis Soln 1 Bag PF 6 bag UD VERONICA Administration Protocol Heparin Sodium (Porcine) 1,000 - 3,000 units 07/18/24 08:19 07/18/24 09:59 Heparin 10,000 Units/10 Ml Vial IV 3,000 units X1 PRN Administration HD catheter closing Hydralazine HCl 10 mg 07/13/24 19:41 Hydralazine 20 Mg/Ml Vial IV Q6H PRN PRN SBP>160 Protocol Ampicillin Sodium/Sulbactam 112 mls @ 150 mls/hr 07/18/24 08:00 07/18/24 11:08 Sodium 3 gm/ Sodium Chloride IV Infused Q24 VERONICA Infusion Lactulose 10 gm 07/17/24 22:00 07/17/24 22:04 Lactulose 20 Gm/30 Ml Udc PO 10 gm BID VERONICA Administration Ondansetron HCl 4 mg 07/13/24 16:26 07/18/24 13:09 Ondansetron 4 Mg/2 Ml Vial IV 4 mg Q8H PRN PRN Administration NAUSEA/VOMITING Oxycodone HCl 5 mg 07/13/24 16:26 07/17/24 22:03 Oxycodone 5 Mg Tablet PO 5 mg Q4H PRN PRN Administration Pain Score 4-10 Quetiapine Fumarate 25 mg 07/17/24 13:32 Quetiapine 25 Mg Tablet PO QHS PRN AGITATION Protocol Senna/Docusate Sodium 2 tablet 07/13/24 16:26 07/14/24 09:16 Senna/Docusate Sodium 1 Tablet PO 2 tablet BID PRN Administration Constipation Sevelamer Carbonate 800 mg 07/13/24 22:00 07/18/24 13:29 Sevelamer Carbonate 800 Mg Tablet PO Not Given 0800,1200,1700,2200 [facility] Sodium Chloride 10 - 40 ml 07/13/24 17:31 07/18/24 13:10 0.9% Saline Lock 10 Ml Syringe IV 10 ml UD PRN Administration SALINE FLUSH Sodium Chloride 1,000 ml 07/18/24 06:00 07/18/24 05:56 0.9% Normal Saline 1,000 Ml Iv.Soln. OPERA.SITE 1,000 ml X1 VERONICA Administration Lab / Micro Data 07/18/24 05:46 07/18/24 05:46 Labs: Laboratory Results - last 24 hr 07/18/24 05:46: WBC 10.4, RBC 2.64 L, Hgb 9.2 L, Hct 29.5 L, MCV 111.7 H, MCH 34.8 H, MCHC 31.2 L, RDW Std Deviation 62.4 H, RDW Coeff of Justine 15.2 H, Plt Count 133 L, MPV 8.7, Immature Gran % (Auto) 1.800 H, Neut % (Auto) 82.0 H, L ymph % (Auto) 8.2 L, [place] % (Auto) 7.2, Eos % (Auto) 0.6, Baso % (Auto) 0.2, A bsolute Neuts (auto) 8.6 H, Absolute Lymphs (auto) 0.85, Nucleated RBC % 0, Sodium 139, Potassium 3.7, Chloride 105, Carbon Dioxide 28.0, Anion Gap 6, BUN 31 H, Creatinine 3.08 H, Estim Creat Clear Calc 24.79, Est GFR (MDRD) Af Amer 26 L, Est GFR (MDRD) Non-Af 22 L, BUN/Creatinine Ratio 10.1, Glucose 94, Calcium 10.8 H, Total Bilirubin 0.60, AST 7 L, ALT 10 L, Alkaline Phosphatase 107, Total Protein 5.1 L, Albumin 2.2 L, Globulin 2.9, Albumin/Globulin Ratio 0.8 L Micro: Microbiology 07/18/24 06:30 Stool Stool Occult Blood (JEROME) - Final Occult Blood Positive Imaging Radiology Impression Brain MRI 07/17/24 13:32 IMPRESSION: Moderate atrophy and minor periventricular white matter ischemic change without evidence for acute infarct. Electronically Signed: Dennis Dinero MD at 17:42 EDT , Assessment and Plan . Assessment and plan: HPI 69 yo chronically ill obese man w/ ESRD admitted 07/13/24 w/ dyspnea and hypoxemia. Imaging, including CTA, reveals some bibasilar ATX/infiltrate. He has received empiric IV ABX. He also received HD w/ UF T/R/Sat. He is currently breathing 4 LPM O2 at rest, apparently an amount he requires chronically. He also uses CPAP/BIPAP w/ sleep at night chronically. ABG reveals chronic compensated hypercapnia. He also has ASCVD, chronic AF, FELA, h/o VTED, former tobacco use. He underwent barium swallow today which apparently reveals significant O/P dysphagia. In addition, he has had progressive confusion, dysarthria, and motor dysfunction over the past few days. Neurology opinion noted. MRI brain significant for SVOD only. He is currently awake and alert. Breathing 4 LPM O2. HD stable. HR irreg. 07/18/24 Clinically stable Still some confusion, dysarthria, etc. Breathing O2 N/C comfortably HD w/ UF today w/o issues EXAM GEN NAD VS as above HEENT o/p clear NECK obese COR irreg CHEST coarse, decreased dependently ABD soft, obese EXT minimal edema SKIN w/d RAFFY NF grossly ASSESSMENT 1. Dyspnea/hypoxemia - largely chronic 2. Dependent ATX 3. (?) aspiration into airway 4. Delirium / encephalopathy 5. ESRD 6. Obesity / FELA - chronic hypercapnia 7. Chronic AF 8. H/O VTED 9. ASCVD 10. Former tobacco use 11. 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
--- NOTE | 2024-07-18 15:53 | PN.RENAL_ITS ---
Subjective Subjective no acute events over night had Hd today no new complaints Objective Data Objective Data Vital Signs: Vital Signs Temp Pulse Resp BP Pulse Ox O2 Del Method O2 Flow Rate 96.5 F L 85 23 H 132/93 H 98 Nasal Cannula 4.5 07/18/24 12:00 07/18/24 12:00 07/18/24 12:00 07/18/24 12:00 07/18/24 12:00 07/18/24 14:00 07/18/24 14:12 FiO2 30 07/17/24 05:34 Oxygen Flow Rate (L/min) 4.5 Oxygen Delivery Method Nasal Cannula Weight: 89.811 kg Body Mass Index (BMI) 27.7 Intake & Output: Intake and Output for Last 24 Hours 07/16/24 07/17/24 07/18/24 23:59 23:59 23:59 Intake Total 505 / 505 318.33 / 368.33 312 / 312 Output Total 2890 / 3040 850 / 1150 2840 / 2840 Balance -2385 / -2535 -531.67 / -781.67 -2528 / -2528 Lab / Micro Data 07/18/24 05:46 07/18/24 05:46 Labs: Laboratory Results - last 24 hr 07/18/24 05:46: WBC 10.4, RBC 2.64 L, Hgb 9.2 L, Hct 29.5 L, MCV 111.7 H, MCH 34.8 H, MCHC 31.2 L, RDW Std Deviation 62.4 H, RDW Coeff of Justine 15.2 H, Plt Count 133 L, MPV 8.7, Immature Gran % (Auto) 1.800 H, Neut % (Auto) 82.0 H, L ymph % (Auto) 8.2 L, [place] % (Auto) 7.2, Eos % (Auto) 0.6, Baso % (Auto) 0.2, A bsolute Neuts (auto) 8.6 H, Absolute Lymphs (auto) 0.85, Nucleated RBC % 0, Sodium 139, Potassium 3.7, Chloride 105, Carbon Dioxide 28.0, Anion Gap 6, BUN 31 H, Creatinine 3.08 H, Estim Creat Clear Calc 24.79, Est GFR (MDRD) Af Amer 26 L, Est GFR (MDRD) Non-Af 22 L, BUN/Creatinine Ratio 10.1, Glucose 94, Calcium 10.8 H, Total Bilirubin 0.60, AST 7 L, ALT 10 L, Alkaline Phosphatase 107, Total Protein 5.1 L, Albumin 2.2 L, Globulin 2.9, Albumin/Globulin Ratio 0.8 L Micro: Microbiology 07/18/24 06:30 Stool Stool Occult Blood (JEROME) - Final Occult Blood Positive 07/13/24 15:20 Blood Culture (Wb) - Anticubital Left Blood Culture - Preliminary No growth in 48 hours. 07/14/24 05:08 Sputum, Expectorated/Coughed Gram Stain - Final 07/14/24 05:08 Sputum, Expectorated/Coughed Respiratory Culture - Final 07/14/24 09:20 Mucosa - Nose Coronavirus COVID-19 PCR - Final 07/14/24 04:29 Urine, Random Legionella Antigen - Final 07/14/24 04:29 Urine, Random Streptococcus pneumoniae Antigen (M - Final 07/13/24 16:35 Mucosa - Nasopharyngeal Respiratory Panel (PCR) - Final 07/13/24 21:54 Nasal Secretion SARS-CoV-2 Antigen (Rapid) - Final Radiography Diagnostic Testing: Radiology Impression Brain MRI 07/17/24 13:32 IMPRESSION: Moderate atrophy and minor periventricular white matter ischemic change without evidence for acute infarct. Electronically Signed: Dennis Dinero MD at 17:42 EDT , Physical Exam Narrative Alert awake oriented x 3 no obvious distress s1s2 no murmurs lungs clear abdomen soft, nontender Trace nonpitting edema bilateral lower legs. Redness left lower leg Tunneled dialysis catheter dressing clean, dry and intact Assessment & Plan Assessment/Plan (1) ESRD (end stage renal disease): PLAN: - ESRD secondary to biopsy-proven ATN with no noted recovery. Currently on hemodialysis Saturday, , Saturday schedule. -had HD today, tolerated treatment well -Left lower extremity cellulitis; IV antibiotic. Venous Duplex no evidence of DVT -Pneumonia; on IV antibiotics. -History of hypertension; blood pressures are low side but stable. He is not on any antihypertensives now. CT chest report reviewed reviewed. Appears to have severe osteopenia, loss of bone mass. Most likely related to immobilization. No evidence of myeloma on kidney biopsy done earlier this year. PSA is normal. Serum protein electrophoresis ordered, results pending. -calcium relatively stable. discussed with RN
--- NOTE | 2024-07-18 18:02 | NURSING ---
Dr. Bernal saw patient via tele-ICU, requesting to ask caregivers if patient takes baclofen frequently at home. Called SHANA Murillo, Lidia looked through patient meds at home, did not see any bottles baclofen on them.
--- NOTE | 2024-07-18 22:24 | NURSING ---
ATTEMPT TO GIVE HS WHOLE IN APPLESAUCE. PT SAT UP RIGHT IN BED. SMALL BITE OF APPLESAUCE GIVEN WITH 1 PILL. PT UNABLE TO SWALLOW PILL. CHEWED PILL THEN SWALLOWED.
--- NOTE | 2024-07-18 22:26 | NURSING ---
BLOOD SUGAR 86. 4 OZ JUICE GIVEN FOR SNACK.
[2024-07-18 22:58] LABS: Bedside Glucose 89 mg/dL (74-106)
[2024-07-19] VITALS (12 sets, daily range): BP systolic 118–152; BP diastolic 73–109; PULSE 72–100; RESP 12–28; TEMP 36.2–36.6; O2SAT 92–100; BMI 27.3
--- NOTE | 2024-07-19 00:16 | PN.NEURO_ITS ---
Assessment and Plan: Neuro Assessment/Plan ZIYAD BAER Jr. is a 69 M with a past medical history of respiratory failure, on hemodialysis Saturday, Saturday (he has not been compliant with his diet) VTE on Eliquis, hypertension and failure to thrive, being evaluated by Teleneurology for confusion. Pt is poor contributor to his history but per nurses he has had a gradual decline in his functioning since being in the hospital. Exam signficant for asterixis and inattention. At this time concern that pt has severe metabolic abnormalities that are leading to his confusion. Given some improvement in confusion after bowel movement and MRI Brain without evidence of stroke, likely etiolog yof symptoms is delirium from multiple medical comorbidities including his hypercalcemia, and new JOSE (Cr in 2022 was normal). Plan: - continue scheduled baclofen - treat pain per primary team - correct Ca (today corrected Ca is 12.2) as this can cause confusion and some asterixis - routine bowel movements Neurology will sign off at this time, will defer management of medical elements to primary team. I personally attended this patient and spent a total time of 45 minutes evaluating this patient including clinical assessment, review of chart, medical history imaging, and determining appropriate treatment and workup. Subject: Neurology Subjective Pt in severe pain today, exam and history limited. Per nurse he was more aware this morning. Pt had multiple large bowel movements and now with hematachezia. EEG Results Procedure Details EEG Procedure Details: ZIYAD BAER Jr. is a 69 year old M with a past medical history of , who presents for evaluation of Electroencephalogram on DATE at TIME Objective Data Objective Data Vital Signs: Vital Signs Temp Pulse Resp BP Pulse Ox O2 Del Method O2 Flow Rate 97 F L 77 23 H 127/82 H 100 Nasal Cannula 4 07/18/24 20:00 07/18/24 20:00 07/18/24 20:00 07/18/24 20:00 07/18/24 20:00 07/18/24 20:00 07/18/24 20:00 FiO2 30 07/17/24 05:34 Oxygen Flow Rate (L/min) 4 Oxygen Delivery Method Nasal Cannula Weight: 89.811 kg Body Mass Index (BMI) 27.7 Intake & Output: Intake and Output for Last 24 Hours 07/17/24 07/18/24 07/19/24 23:59 23:59 23:59 Intake Total 318.33 / 368.33 312 / 312 Output Total 850 / 1150 2840 / 2840 Balance -531.67 / -781.67 -2528 / -2528 Lab / Micro Data 07/18/24 05:46 07/18/24 05:46 Labs: Laboratory Results - last 24 hr 07/18/24 05:46: WBC 10.4, RBC 2.64 L, Hgb 9.2 L, Hct 29.5 L, MCV 111.7 H, MCH 34.8 H, MCHC 31.2 L, RDW Std Deviation 62.4 H, RDW Coeff of Justine 15.2 H, Plt Count 133 L, MPV 8.7, Immature Gran % (Auto) 1.800 H, Neut % (Auto) 82.0 H, L ymph % (Auto) 8.2 L, [place] % (Auto) 7.2, Eos % (Auto) 0.6, Baso % (Auto) 0.2, A bsolute Neuts (auto) 8.6 H, Absolute Lymphs (auto) 0.85, Nucleated RBC % 0, Sodium 139, Potassium 3.7, Chloride 105, Carbon Dioxide 28.0, Anion Gap 6, BUN 31 H, Creatinine 3.08 H, Estim Creat Clear Calc 24.79, Est GFR (MDRD) Af Amer 26 L, Est GFR (MDRD) Non-Af 22 L, BUN/Creatinine Ratio 10.1, Glucose 94, Calcium 10.8 H, Total Bilirubin 0.60, AST 7 L, ALT 10 L, Alkaline Phosphatase 107, Total Protein 5.1 L, Albumin 2.2 L, Globulin 2.9, Albumin/Globulin Ratio 0.8 L 07/18/24 22:16: POC Glucose 89 Micro: Microbiology 07/18/24 06:30 Stool Stool Occult Blood (JEROME) - Final Occult Blood Positive 07/13/24 15:20 Blood Culture (Wb) - Anticubital Left Blood Culture - Preliminary No growth in 48 hours. 07/14/24 05:08 Sputum, Expectorated/Coughed Gram Stain - Final 07/14/24 05:08 Sputum, Expectorated/Coughed Respiratory Culture - Final 07/14/24 09:20 Mucosa - Nose Coronavirus COVID-19 PCR - Final 07/14/24 04:29 Urine, Random Legionella Antigen - Final 07/14/24 04:29 Urine, Random Streptococcus pneumoniae Antigen (M - Final 07/13/24 16:35 Mucosa - Nasopharyngeal Respiratory Panel (PCR) - Final 07/13/24 21:54 Nasal Secretion SARS-CoV-2 Antigen (Rapid) - Final Physical Exam Narrative -??? -? NEURO: -? Mental Status: The patient was alert and oriented to place and time, poorly to situation. Less tangential and no longer perseverating but exam impaired by his pain -? Language: speech is clear.? Naming, repetition, fluency, and comprehension intact. -? Cranial Nerves: R pupil 6mm and nonreactive, L pupil 4mm and brisk. EOMI, visual morejon full, facial strength , facial sensation intact -? Motor: poor effort but drift b/l to bed on b/l UE; b/l LE able to bend his knees and wiggle toes but unable to comply with directions - Asterixis still present but less present
[2024-07-19 04:40] LABS: Absolute Lymphocyte Count 0.99 X10^3/uL (0.83-4.51); Basophil# 0.01 X10^3/uL; Basophil% 0.1 % (0-1); Eosinophil# 0.04 X10^3/uL; Eosinophils% 0.4 % (0-5); Hemoglobin 8.7 g/dL (13.0-16.5); Lymphocyte # 0.99 X10^3/ul (0.83-4.51); Lymphocyte % 8.9 % (19-41); Mean Corp Hgb Conc 31.1 g/dL (32-36); Mean Corpuscular Hgb 34.7 pg (27.0-32.0); Mean Corpuscular Volume 111.6 fL (80-94); Mean Platelet Vol. 8.9 fl (6.2-12.0); Monocyte# 0.89 X10^3/uL; NRBC Flagged by Analyzer 0.2 % (0-5); Neutrophil # 8.97 X10^3/uL (2.7-7.7); Neutrophil % 80.6 % (47-70); Platelet Count 118 K/mm3 (150-450); RBC Distribution Width CV 15.6 % (11.6-14.6); RBC Distribution Width SD 61.5 fl (35.1-43.9); Red Blood Count 2.51 M/mm3 (4.6-6.2); White Blood Count 11.1 K/mm3 (4.4-11.0)
--- NOTE | 2024-07-19 05:55 | NURSING ---
Blood sugar 86, 4 oz juice given.
[2024-07-19 06:22] LABS: Bedside Glucose 85 mg/dL (74-106)
[2024-07-19] MEDS: Ipratropium/Albuterol Sulfate 3 ML AMPUL.NEB INHALATION ×3 (07:15→19:10)
[2024-07-19] MEDS: Budesonide Respules 0.5 MG/2 ML AMPUL.NEB. INHALATION ×2 (07:15→19:10)
[2024-07-19] MEDS: Menthol/Lanolin/Calamine/Znox 113 GM Tube 1 APPLIC TOPICAL ×2 (09:18→20:23)
[2024-07-19] MEDS: SEVELAMER CARBONATE 800 MG TABLET PO ×2 (09:18→16:30)
[2024-07-19] MEDS: Doxycycline 100 MG CAPSULE PO ×2 (09:18→20:23)
[2024-07-19] MEDS: buPROPion 75 MG Tablet PO (09:19)
[2024-07-19] MEDS: Ampicillin/Sulbactam 3 GM in 0.9% Normal Saline (100mL MB+) 100 ML IV (09:19)
--- NOTE | 2024-07-19 09:42 | PCM.PN.HOSP ---
Subjective Subjective No issues overnight. Hemoglobin is stable Objective Data Objective Data Vital Signs: Vital Signs Temp Pulse Resp BP Pulse Ox O2 Del Method O2 Flow Rate 97.2 F L 75 20 H 118/75 96 Nasal Cannula 4 07/19/24 02:00 07/19/24 07:15 07/19/24 07:15 07/19/24 02:00 07/19/24 07:15 07/19/24 07:15 07/19/24 07:15 FiO2 30 07/17/24 05:34 Oxygen Flow Rate (L/min) 4 Oxygen Delivery Method Nasal Cannula Weight: 195 lb 8.8 oz Body Mass Index (BMI) 27.3 Intake & Output: Intake and Output for Last 24 Hours 07/18/24 07/19/24 07/20/24 03:59 03:59 03:59 Intake Total 368.33 / 368.33 662 / 662 350 / 350 Output Total 900 / 900 2740 / 2740 100 / 100 Balance -531.67 / -531.67 -2078 / -2078 250 / 250 Lab / Micro Data 07/19/24 04:20 07/18/24 05:46 Labs: Laboratory Results - last 24 hr 07/18/24 05:46: Sodium 139, Potassium 3.7, Chloride 105, Carbon Dioxide 28.0, Anion Gap 6, BUN 31 H, Creatinine 3.08 H, Estim Creat Clear Calc 24.79, Est GFR (MDRD) Af Amer 26 L, Est GFR (MDRD) Non-Af 22 L, BUN/Creatinine Ratio 10.1, Glucose 94, Calcium 10.8 H, Total Bilirubin 0.60, AST 7 L, ALT 10 L, Alkaline Phosphatase 107, Total Protein 5.1 L, Albumin 2.2 L, Globulin 2.9, Albumin/Globulin Ratio 0.8 L 07/18/24 22:16: POC Glucose 89 07/19/24 04:20: WBC 11.1 H, RBC 2.51 L, Hgb 8.7 L, Hct 28.0 L, MCV 111.6 H, MCH 34.7 H, MCHC 31.1 L, RDW Std Deviation 61.5 H, RDW Coeff of Justine 15.6 H, Plt Count 118 L, MPV 8.9, Immature Gran % (Auto) 2.000 H, Neut % (Auto) 80.6 H, Lymph % (Auto) 8.9 L, [place] % (Auto) 8.0, Eos % (Auto) 0.4, Baso % (Auto) 0.1, Absolute Neuts (auto) 9.0 H, Absolute Lymphs (auto) 0.99, Nucleated RBC % 0.2 07/19/24 05:51: POC Glucose 85 Micro: Microbiology 07/13/24 15:20 Blood Culture (Wb) - Anticubital Left Blood Culture - Final No growth in 5 days. 07/18/24 06:30 Stool Stool Occult Blood (JEROME) - Final Occult Blood Positive 07/14/24 05:08 Sputum, Expectorated/Coughed Gram Stain - Final 07/14/24 05:08 Sputum, Expectorated/Coughed Respiratory Culture - Final 07/14/24 09:20 Mucosa - Nose Coronavirus COVID-19 PCR - Final 07/14/24 04:29 Urine, Random Legionella Antigen - Final 07/14/24 04:29 Urine, Random Streptococcus pneumoniae Antigen (M - Final 07/13/24 16:35 Mucosa - Nasopharyngeal Respiratory Panel (PCR) - Final 07/13/24 21:54 Nasal Secretion SARS-CoV-2 Antigen (Rapid) - Final Physical Exam Narrative General: Alert, Oriented x3, Cooperative, No apparent distress HEENT: Atraumatic, PERRLA, EOMI, Normocephalic Oral: Moist Mucosa Neck: Supple, No JVD Lungs: Diminished, Normal air movement, No rhonchi, No wheeze, No rales Cardiovascular: Regular rate, Regular Rhythm, Normal S1, Normal S2, No murmurs Abdomen: Soft, Non Tender, Non-Distended, No Hepato-splenomegaly Extremities: Edema, Capillary Refill Less than 3 Seconds Skin: No rashes, No breakdown, areas of chronic ecchymosis Musculoskeletal: No Tenderness to Palpation of Joints or Extremities Neurological: No focal neurological deficits, Motor Exam 5/5 strength throughout, Sensory exam intact to light touch and pain Psych/Mental Status: Flat Assessment & Plan Assessment/Plan (1) Acute hypoxemic respiratory failure: (2) Pneumonia of both lower lobes: (3) Hypokalemia: (4) Left leg cellulitis: PLAN: Plan Acute hypoxic respiratory failure secondary to volume overload/right lower lobe pneumonia: Chest x-ray and chest CTA individually reviewed. No evidence of pulmonary embolism. Bibasilar infiltrates present. Has thoracic and lumbar fusion with hardware. Continue vancomycin and Zosyn and azithromycin to cover MRSA, GNR including Pseudomonas and atypicals. COVID-19 PCR negative. Urinary antigens are negative. Respiratory panel negative. Gram stain pending. Continue incentive spirometry and PEP and Mucinex. Patient on BiPAP/NIPPV 07/15: Patient still short of breath and required 6 L of oxygen 07/16: On 5 L of oxygen. Breathing and respiratory status are gradually getting better. Sputum culture did not had enough specimen Therefore canceled. Will de-escalate the antibiotics patient had about 4 days of IV antibiotic therefore we will discontinue vancomycin. ID consulted. 07/17: Patient was seen by ID and recommended to continue cefepime and Zithromax. Zithromax was discontinued yesterday because of interaction with Seroquel which patient required for confusion/not able to tolerate BiPAP. Will change to doxycycline. Repeat chest x-ray was initially reviewed official report pending. Suboptimal x-ray, decreased volume especially on the left, rotated x-ray. Chronic scarring with bibasilar infiltrates. Thoracic and lumbar hardware. [facility] consult 07/18/2024: Cefepime was discontinued and currently on doxycycline and Unasyn Left lower extremity cellulitis: Left leg is very tender. Covered with antibiotics as mentioned above. Venous duplex is ordered. Patient is on anticoagulant. Wound nurse to follow 07/15: Left leg feels better and patient can lift although weak, strength 4/5 at both knee joints 07/18/2024: Leg feels better today continue with antibiotics Acute encephalopathy with change in mental status, increased confusion, distraction, sometimes, disorientation, increased reaction time to respond and echolalia: Orientation cues. CT head was done which does not show acute abnormality but partial opacification of left maxillary sinus. Neurology consult. Hypokalemia -P.o. potassium given emergency department Serum magnesium 1.6 phosphorus 2.7. Patient is on hemodialysis. Potassium 3.4. 07/15: Mild hypokalemia but patient on hemodialysis. 07/16: K3.4. Acceptable K level as patient is on hemodialysis. End-stage renal disease -HD dependent -Continue home sevelamer -Consult nephrology -Patient is not compliant with diet -Patient does appear to be somewhat volume overloaded on exam Acute on chronic macrocytic anemia, multifactorial including CKD and chronic disease -H&H 8.4/26.5 decreased from 9.7/30.5%. Monitor CBC. 07/15: H&H 8.3/26%. Immature granulocytes 1.2%. Platelet count 104,000. Anemia workup ordered. 07/16: H&H 8.8/28%. Platelet count 120,000. Reticulocyte count 1.53 elevated. Immature reticulocyte fraction elevated therefore bone marrow active. Iron saturation and ferritin high. Overall suggestive of anemia of chronic disease History of thoracic compression fractures -Status post T7 laminectomy and decompression -Biopsies were taken at bedtime -Continue as needed pain medication once verified 07/18/2024: Fecal occult positive for blood, hemoglobin has actually been going up so we will monitor at this time. Will hold Eliquis 07/19/2024: Hemoglobin went from 8.5 up to 9.2 and today is down to 8.7 we will recheck tomorrow morning, continue to hold anticoagulation 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 -Hold Eliquis History of A-fib/flutter -Patient is on no rate controlling medications as his fib/flutter is not conjoined with RVR -Hold Eliquis secondary to possible GI bleed Hypertension -Medications have not yet been verified for hypertension -Hold all antihypertensives -Blood pressures are currently on the low side -As needed hydralazine for systolic blood pressure greater than 160 Aortic aneurysm -Stable ascending aortic aneurysm noted on most recent CTA -4.4 cm -Control blood pressure -Recommend outpatient follow-up FELA -Will transition nocturnal CPAP once off BiPAP COPD -Patient had irreversibly moderately severe mixed ventilatory defect with symmetric reduction in diffusing capacity noted on his PFTs from March 2023 -FEV1 was 54% predicted -Nebulizers as above -Recommend outpatient follow-up with pulmonary medicine after discharge Depression/suicidal ideation -Continue home bupropion -Case management consulted -Patient has no current plan DVT: SCDs Charges/Coding Visit Charges Inpatient E&M: 79265 Subs Hosp L2
[2024-07-19] MEDS: Colestipol 1 GM TABLET PO (12:06)
--- NOTE | 2024-07-19 21:50 | PCM.PN.TICU ---
Objective Data Objective Data Vital Signs: Vital Signs Last response Temperature 36.3 C L 07/19/24 20:30 Temperature Source Temporal 07/19/24 20:30 Pulse Rate 99 07/19/24 20:30 Pulse Strength Weak (1+) 07/19/24 20:35 Respiratory Rate 18 07/19/24 20:30 Respiratory Effort Normal, Non-Labored 07/19/24 20:00 Respiratory Depth Normal 07/19/24 20:00 Respiratory Pattern Normal 07/19/24 20:00 Blood Pressure 152/109 H 07/19/24 20:30 Blood Pressure Mean 123 07/19/24 20:30 Blood Pressure Source Monitor 07/19/24 18:00 Blood Pressure Position Semi-Fowlers 07/19/24 18:00 Blood Pressure Location Left Arm 07/19/24 18:00 Pulse Ox 94 07/19/24 20:30 Oxygen Delivery Method Nasal Cannula 07/19/24 20:30 Oxygen Flow Rate (L/min) 2 07/19/24 20:30 Fraction of Inspired Oxygen (FIO2) 30 07/17/24 05:34 I&O: I&O Last 24 Hours 07/18/24 07/19/24 07/19/24 23:59 11:59 23:59 Intake Total 150 / 712 850 / 1062 212 / 1062 Output Total 200 / 3040 300 / 595 295 / 595 Balance -50 / -2328 550 / 467 -83 / 467 I&O: Total Stay 07/13/24 10:42 thru 07/19/24 18:26 Intake Total 4267.33 Output Total 42770 Balance -6737.67 Current Meds Ordered / Administered: Current meds ordered / Administered Generic Name Dose Route Start Last Admin Trade Name Freq PRN Reason Stop Dose Admin Acetaminophen 650 mg 07/13/24 16:26 07/14/24 20:14 Acetaminophen 325 Mg Tablet PO 650 mg Q6H PRN PRN Administration Pain 1-10 Or Fever >100.7 Albuterol Sulfate 2.5 mg 07/13/24 19:35 Albuterol 2.5 Mg/3 Ml Vial.Neb. INHALATION Q2H PRN PRN SOB &/OR WHEEZING Albuterol/Ipratropium 3 ml 07/13/24 19:45 07/19/24 19:10 Ipratropium/Albuterol Sulfate 3 Ml Ampul.Neb INHALATION 3 ml Q6HWA.RT VERONICA Administration Baclofen 10 mg 07/13/24 19:21 07/17/24 22:03 Baclofen 10 Mg Tablet PO 10 mg TID PRN Administration muscle spasm Budesonide 0.5 mg 07/13/24 20:00 07/19/24 19:10 Budesonide Respules 0.5 Mg/2 Ml Ampul.Neb. INHALATION 0.5 mg Q12H.RT VERONICA Administration Bupropion HCl 75 mg 07/14/24 10:00 07/19/24 09:19 Bupropion 75 Mg Tablet PO 75 mg DAILY VERONICA Administration Calamine/Phenol 1 applic 07/18/24 10:00 07/19/24 20:23 Menthol/Lanolin/Calamine/Znox 113 Gm Tube TOPICAL 1 applic BID VERONICA Administration Protocol Colestipol HCl 1 gm 07/14/24 10:00 07/19/24 12:06 Colestipol 1 Gm Tablet PO 1 gm DAILY VERONICA Administration Doxycycline Monohydrate 100 mg 07/17/24 10:00 07/19/24 20:23 Doxycycline 100 Mg Capsule PO 100 mg BID VERONICA Administration Hemodialysis Solution 6 bag 07/18/24 06:00 07/19/24 05:49 Pureflow B 2k Dialysis Soln 1 Bag PF Not Given UD VERONICA Protocol Heparin Sodium (Porcine) 1,000 - 3,000 units 07/18/24 08:19 07/18/24 09:59 Heparin 10,000 Units/10 Ml Vial IV 3,000 units X1 PRN Administration HD catheter closing Hydralazine HCl 10 mg 07/13/24 19:41 Hydralazine 20 Mg/Ml Vial IV Q6H PRN PRN SBP>160 Protocol Ampicillin Sodium/Sulbactam 112 mls @ 150 mls/hr 07/18/24 08:00 07/19/24 18:26 Sodium 3 gm/ Sodium Chloride IV Infused Q24 VERONICA Infusion Lactulose 10 gm 07/17/24 22:00 07/17/24 22:04 Lactulose 20 Gm/30 Ml Udc PO 10 gm BID VERONICA Administration Ondansetron HCl 4 mg 07/13/24 16:26 07/18/24 21:05 Ondansetron 4 Mg/2 Ml Vial IV 4 mg Q8H PRN PRN Administration NAUSEA/VOMITING Oxycodone HCl 5 mg 07/13/24 16:26 07/17/24 22:03 Oxycodone 5 Mg Tablet PO 5 mg Q4H PRN PRN Administration Pain Score 4-10 Quetiapine Fumarate 25 mg 07/17/24 13:32 Quetiapine 25 Mg Tablet PO QHS PRN AGITATION Protocol Senna/Docusate Sodium 2 tablet 07/13/24 16:26 07/14/24 09:16 Senna/Docusate Sodium 1 Tablet PO 2 tablet BID PRN Administration Constipation Sevelamer Carbonate 800 mg 07/13/24 22:00 07/19/24 19:33 Sevelamer Carbonate 800 Mg Tablet PO Not Given 0800,1200,1700,2200 [facility] Sodium Chloride 10 - 40 ml 07/13/24 17:31 07/18/24 13:10 0.9% Saline Lock 10 Ml Syringe IV 10 ml UD PRN Administration SALINE FLUSH Sodium Chloride 1,000 ml 07/18/24 06:00 07/19/24 19:33 0.9% Normal Saline 1,000 Ml Iv.Soln. OPERA.SITE Not Given X1 [facility] Medical Records Data Medical Nutrition Assessment Dietitian: Malnutrition Criteria Met Start: 07/19/24 14:03 Freq: Status: Active Protocol: Document 07/19/24 14:03 RMA (Rec: 07/19/24 14:03 RMA [id number]) Nutrition Malnutrition Evidence of Malnutrition Exists Yes Malnutrition (severe): Acute Illness/Injury,Chronic Evidenced By Suboptimal Energy Intake ( Severe),Weight Loss (Severe) Intake Problem Inadequate Oral Intake Etiology related to difficulty chewing/ swallowing and decreased appetite Signs/Symptoms as evidenced by taking less than 50% of meals and need for mechanically altered food Status Active Problem Clinical Problem Acute Disease or Injury Related Malnutrition Etiology Severe protein-calorie malnutrition in the context of acute on chronic disease related to inadequate oral intake and difficulty chewing/ swallowing Signs/Symptoms as evidenced by ~5% unintentional weight loss x 1 week, taking less than 50% meals since admit, PO meeting less than 50% estimated nutrition needs and need for pureed-consistency food Status Active Problem Recommendation Dietitian Recommendations/Changes Continue Renal General diet with consistency/texture as per UTILITY SPECIALIST---liberalize diet as needed if PO does not improve. Continue 120mL PO Nepro with meals. Will add fortified pudding w/ lunch and dinner tray. Lab / Micro Data 07/19/24 04:20 07/18/24 05:46 Labs: Laboratory Results - last 24 hr 07/18/24 22:16: POC Glucose 89 07/19/24 04:20: WBC 11.1 H, RBC 2.51 L, Hgb 8.7 L, Hct 28.0 L, MCV 111.6 H, MCH 34.7 H, MCHC 31.1 L, RDW Std Deviation 61.5 H, RDW Coeff of Justine 15.6 H, Plt Count 118 L, MPV 8.9, Immature Gran % (Auto) 2.000 H, Neut % (Auto) 80.6 H, Lymph % (Auto) 8.9 L, Ferry % (Auto) 8.0, Eos % (Auto) 0.4, Baso % (Auto) 0.1, Absolute Neuts (auto) 9.0 H, Absolute Lymphs (auto) 0.99, Nucleated RBC % 0.2 07/19/24 05:51: POC Glucose 85 Micro: Microbiology 07/13/24 15:20 Blood Culture (Wb) - Anticubital Left Blood Culture - Final No growth in 5 days. Assessment and Plan . Assessment and plan: HPI 69 yo chronically ill obese man w/ ESRD admitted 07/13/24 w/ dyspnea and hypoxemia. Imaging, including CTA, reveals some bibasilar ATX/infiltrate. He has received empiric IV ABX. He also received HD w/ UF T/R/Sat. He is currently breathing 4 LPM O2 at rest, apparently an amount he requires chronically. He also uses CPAP/BIPAP w/ sleep at night chronically. ABG reveals chronic compensated hypercapnia. He also has ASCVD, chronic AF, FELA, h/o VTED, former tobacco use. He underwent barium swallow today which apparently reveals significant O/P dysphagia. In addition, he has had progressive confusion, dysarthria, and motor dysfunction over the past few days. Neurology opinion noted. MRI brain significant for SVOD only. He is currently awake and alert. Breathing 4 LPM O2. HD stable. HR irreg. 07/19/24 Clinically stable Still some confusion, dysarthria, etc. Breathing O2 N/C comfortably He was able to feed himself today w/o incident, which is an improvement I still have some concern for possible withdrawal syndrome from baclofen, but we have not been able to determine if, and how much, baclofen he does or does not take chronically. EXAM GEN NAD VS as above HEENT o/p clear NECK obese COR irreg CHEST coarse, decreased dependently ABD soft, obese EXT minimal edema SKIN w/d RAFFY NF grossly, some tremor ASSESSMENT 1. Dyspnea/hypoxemia - largely chronic 2. Dependent ATX on CT 3. (?) aspiration into airway 4. Delirium / encephalopathy 5. ESRD 6. Obesity / FELA - chronic hypercapnia 7. Chronic AF 8. H/O VTED 9. ASCVD 10. Former tobacco use 11. Hypoalbuminemia TREATMENT PLAN -supplemental O2 -NIV w/ sleep as tolerated -limit po for now - continue ST evaluation -ABX - change cefepime d/t frequent EXECUTIVE PERSONAL ASSISTANT dysfunction reported -MODEL BUILDER w/ UF - T/R/Sat -limit sedating medications, as able -NOAC -continue inhaled BD for now -(?) resume baclofen - defer to Neurology The entirety of this encounter was done via Telemedicine
[2024-07-20] VITALS (17 sets, daily range): BP systolic 135–152; BP diastolic 91–98; PULSE 65–113; RESP 12–29; TEMP 36.1–36.6; O2SAT 93–100; BMI 27.2; BMI 28.2
[2024-07-20] MEDS: Budesonide Respules 0.5 MG/2 ML AMPUL.NEB. INHALATION ×2 (07:27→19:24)
[2024-07-20] MEDS: Ipratropium/Albuterol Sulfate 3 ML AMPUL.NEB INHALATION ×3 (07:27→19:24)
[2024-07-20 08:22] LABS: Absolute Lymphocyte Count 1.21 X10^3/uL (0.83-4.51); Absolute Neutrophil Count 10.1 X10^3/uL (2.0-7.7); Basophil# 0.03 X10^3/uL; Basophil% 0.2 % (0-1); Eosinophil# 0.01 X10^3/uL; Eosinophils% 0.1 % (0-5); Hematocrit 27.1 % (40-54); Hemoglobin 8.5 g/dL (13.0-16.5); Lymphocyte # 1.21 X10^3/ul (0.83-4.51); Lymphocyte % 9.7 % (19-41); Mean Corp Hgb Conc 31.4 g/dL (32-36); Mean Corpuscular Hgb 35.1 pg (27.0-32.0); Mean Platelet Vol. 8.9 fl (6.2-12.0); Monocyte# 0.97 X10^3/uL; Monocyte% 7.7 % (0-10); NRBC Flagged by Analyzer 0 % (0-5); Neutrophil # 10.07 X10^3/uL (2.7-7.7); Neutrophil % 80.5 % (47-70); Platelet Count 131 K/mm3 (150-450); RBC Distribution Width CV 16.8 % (11.6-14.6); RBC Distribution Width SD 63.7 fl (35.1-43.9); Red Blood Count 2.42 M/mm3 (4.6-6.2); White Blood Count 12.5 K/mm3 (4.4-11.0)
--- NOTE | 2024-07-20 08:27 | PCM.PN.HOSP ---
Subjective Subjective Doing well, no issues overnight Objective Data Objective Data Vital Signs: Vital Signs Temp Pulse Resp BP Pulse Ox O2 Del Method O2 Flow Rate 97.1 F L 76 14 152/92 H 100 Bi-pap 2 07/20/24 02:40 07/20/24 05:15 07/20/24 05:15 07/20/24 02:40 07/20/24 05:15 07/20/24 02:40 07/19/24 20:30 FiO2 30 07/20/24 05:15 Oxygen Flow Rate (L/min) 2 Oxygen Delivery Method Bi-pap Weight: 195 lb 5.273 oz Body Mass Index (BMI) 27.2 Intake & Output: Intake and Output for Last 24 Hours 07/19/24 07/20/24 07/21/24 03:59 03:59 03:59 Intake Total 662 / 662 662 / 662 Output Total 2740 / 2740 395 / 395 350 / 350 Balance -8 / -8 267 / 267 -350 / -350 Medical Nutrition Assessment Dietitian: Malnutrition Criteria Met Start: 07/19/24 14:03 Freq: Status: Active Protocol: Document 07/19/24 14:03 RMA (Rec: 07/19/24 14:03 RMA [id number]) Nutrition Malnutrition Evidence of Malnutrition Exists Yes Malnutrition (severe): Acute Illness/Injury,Chronic Evidenced By Suboptimal Energy Intake ( Severe),Weight Loss (Severe) Intake Problem Inadequate Oral Intake Etiology related to difficulty chewing/ swallowing and decreased appetite Signs/Symptoms as evidenced by taking less than 50% of meals and need for mechanically altered food Status Active Problem Clinical Problem Acute Disease or Injury Related Malnutrition Etiology Severe protein-calorie malnutrition in the context of acute on chronic disease related to inadequate oral intake and difficulty chewing/ swallowing Signs/Symptoms as evidenced by ~5% unintentional weight loss x 1 week, taking less than 50% meals since admit, PO meeting less than 50% estimated nutrition needs and need for pureed-consistency food Status Active Problem Recommendation Dietitian Recommendations/Changes Continue Renal General diet with consistency/texture as per GRAIN PICKER---liberalize diet as needed if PO does not improve. Continue 120mL PO Nepro with meals. Will add fortified pudding w/ lunch and dinner tray. Lab / Micro Data 07/20/24 08:15 07/18/24 05:46 Labs: Laboratory Results - last 24 hr 09/23/24 08:15: WBC 12.5 H, RBC 2.42 L, Hgb 8.5 L, Hct 27.1 L, MCV 112.0 H, MCH 35.1 H, MCHC 31.4 L, RDW Std Deviation 63.7 H, RDW Coeff of Justine 16.8 H, Plt Count 131 L, MPV 8.9, Immature Gran % (Auto) 1.800 H, Neut % (Auto) 80.5 H, Lymph % (Auto) 9.7 L, Becker % (Auto) 7.7, Eos % (Auto) 0.1, Baso % (Auto) 0.2, Absolute Neuts (auto) 10.1 H, Absolute Lymphs (auto) 1.21, Nucleated RBC % 0 Micro: Microbiology 07/13/24 15:20 Blood Culture (Wb) - Anticubital Left Blood Culture - Final No growth in 5 days. 07/18/24 06:30 Stool Stool Occult Blood (JEROME) - Final Occult Blood Positive 07/14/24 05:08 Sputum, Expectorated/Coughed Gram Stain - Final 07/14/24 05:08 Sputum, Expectorated/Coughed Respiratory Culture - Final 07/14/24 09:20 Mucosa - Nose Coronavirus COVID-19 PCR - Final 07/14/24 04:29 Urine, Random Legionella Antigen - Final 07/14/24 04:29 Urine, Random Streptococcus pneumoniae Antigen (M - Final 07/13/24 16:35 Mucosa - Nasopharyngeal Respiratory Panel (PCR) - Final 07/13/24 21:54 Nasal Secretion SARS-CoV-2 Antigen (Rapid) - Final Physical Exam Narrative General: Alert, Oriented x3, Cooperative, No apparent distress HEENT: Atraumatic, PERRLA, EOMI, Normocephalic Oral: Moist Mucosa Neck: Supple, No JVD Lungs: Diminished, Normal air movement, No rhonchi, No wheeze, No rales Cardiovascular: Regular rate, Regular Rhythm, Normal S1, Normal S2, No murmurs Abdomen: Soft, Non Tender, Non-Distended, No Hepato-splenomegaly Extremities: Edema, Capillary Refill Less than 3 Seconds Skin: No rashes, No breakdown, areas of chronic ecchymosis Musculoskeletal: No Tenderness to Palpation of Joints or Extremities Neurological: No focal neurological deficits, Motor Exam 5/5 strength throughout, Sensory exam intact to light touch and pain Psych/Mental Status: Flat Assessment & Plan Assessment/Plan (1) Acute hypoxemic respiratory failure: (2) Pneumonia of both lower lobes: (3) Hypokalemia: (4) Left leg cellulitis: PLAN: Plan Acute hypoxic respiratory failure secondary to volume overload/right lower lobe pneumonia: Chest x-ray and chest CTA individually reviewed. No evidence of pulmonary embolism. Bibasilar infiltrates present. Has thoracic and lumbar fusion with hardware. Continue vancomycin and Zosyn and azithromycin to cover MRSA, GNR including Pseudomonas and atypicals. COVID-19 PCR negative. Urinary antigens are negative. Respiratory panel negative. Gram stain pending. Continue incentive spirometry and PEP and Mucinex. Patient on BiPAP/NIPPV 07/15: Patient still short of breath and required 6 L of oxygen 07/16: On 5 L of oxygen. Breathing and respiratory status are gradually getting better. Sputum culture did not had enough specimen Therefore canceled. Will de-escalate the antibiotics patient had about 4 days of IV antibiotic therefore we will discontinue vancomycin. ID consulted. 07/17: Patient was seen by ID and recommended to continue cefepime and Zithromax. Zithromax was discontinued yesterday because of interaction with Seroquel which patient required for confusion/not able to tolerate BiPAP. Will change to doxycycline. Repeat chest x-ray was initially reviewed official report pending. Suboptimal x-ray, decreased volume especially on the left, rotated x-ray. Chronic scarring with bibasilar infiltrates. Thoracic and lumbar hardware. [facility] consult 07/18/2024: Cefepime was discontinued and currently on doxycycline and Unasyn Left lower extremity cellulitis: Left leg is very tender. Covered with antibiotics as mentioned above. Venous duplex is ordered. Patient is on anticoagulant. Wound nurse to follow 07/15: Left leg feels better and patient can lift although weak, strength 4/5 at both knee joints 07/18/2024: Leg feels better today continue with antibiotics Acute encephalopathy with change in mental status, increased confusion, distraction, sometimes, disorientation, increased reaction time to respond and echolalia: Orientation cues. CT head was done which does not show acute abnormality but partial opacification of left maxillary sinus. Neurology consult. Hypokalemia -P.o. potassium given emergency department Serum magnesium 1.6 phosphorus 2.7. Patient is on hemodialysis. Potassium 3.4. 07/15: Mild hypokalemia but patient on hemodialysis. 07/16: K3.4. Acceptable K level as patient is on hemodialysis. End-stage renal disease -HD dependent -Continue home sevelamer -Consult nephrology -Patient is not compliant with diet -Patient does appear to be somewhat volume overloaded on exam Acute on chronic macrocytic anemia, multifactorial including CKD and chronic disease -H&H 8.4/26.5 decreased from 9.7/30.5%. Monitor CBC. 07/15: H&H 8.3/26%. Immature granulocytes 1.2%. Platelet count 104,000. Anemia workup ordered. 07/16: H&H 8.8/28%. Platelet count 120,000. Reticulocyte count 1.53 elevated. Immature reticulocyte fraction elevated therefore bone marrow active. Iron saturation and ferritin high. Overall suggestive of anemia of chronic disease History of thoracic compression fractures -Status post T7 laminectomy and decompression -Biopsies were taken at bedtime -Continue as needed pain medication once verified 07/18/2024: Fecal occult positive for blood, hemoglobin has actually been going up so we will monitor at this time. Will hold Eliquis 07/19/2024: Hemoglobin went from 8.5 up to 9.2 and today is down to 8.7 we will recheck tomorrow morning, continue to hold anticoagulation 07/20/2024: Hemoglobin is at 8.5 so it is stable however given the fact that he is to be on anticoagulation for his A-fib and flutter we will consult GI and placed on a clear liquid diet 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 -Hold Eliquis History of A-fib/flutter -Patient is on no rate controlling medications as his fib/flutter is not conjoined with RVR -Hold Eliquis secondary to possible GI bleed Hypertension -Medications have not yet been verified for hypertension -Hold all antihypertensives -Blood pressures are currently on the low side -As needed hydralazine for systolic blood pressure greater than 160 Aortic aneurysm -Stable ascending aortic aneurysm noted on most recent CTA -4.4 cm -Control blood pressure -Recommend outpatient follow-up FELA -Will transition nocturnal CPAP once off BiPAP COPD -Patient had irreversibly moderately severe mixed ventilatory defect with symmetric reduction in diffusing capacity noted on his PFTs from March 2023 -FEV1 was 54% predicted -Nebulizers as above -Recommend outpatient follow-up with pulmonary medicine after discharge Depression/suicidal ideation -Continue home bupropion -Case management consulted -Patient has no current plan DVT: SCDs Charges/Coding Visit Charges Inpatient E&M: 07210 Subs Hosp L2
[2024-07-20 08:40] LABS: Anion Gap 8 (5-15); BUN 39 mg/dL (7-18); BUN/Creat Ratio 12.1 RATIO (10-20); Calcium,Total 11.9 mg/dL (8.5-10.1); Chloride 107 mmol/L (98-107); Creatinine, Serum 3.22 mg/dL (0.70-1.30); EST Glomerular Filtration Rate 21 mL/min (>60); Est Glom Filt Rate - Afr Amer 25 mL/min (>60); Estimated Creatinine Clearance 23.71 ml/min; Glucose 107 mg/dL (74-106); Potassium 4.2 mmol/L (3.5-5.1); Sodium Level 141 mmol/L (136-145)
[2024-07-20] MEDS: Ampicillin/Sulbactam 3 GM in 0.9% Normal Saline (100mL MB+) 100 ML IV (09:46)
[2024-07-20] MEDS: buPROPion 75 MG Tablet PO (09:47)
[2024-07-20] MEDS: SEVELAMER CARBONATE 800 MG TABLET PO ×4 (09:48→21:05)
[2024-07-20] MEDS: Doxycycline 100 MG CAPSULE PO (09:50)
[2024-07-20] MEDS: Colestipol 1 GM TABLET PO (09:50)
[2024-07-20] MEDS: Menthol/Lanolin/Calamine/Znox 113 GM Tube 1 APPLIC TOPICAL ×2 (09:56→21:04)
[2024-07-20] MEDS: oxyCODONE 5 MG Tablet PO ×2 (10:00→15:46)
--- NOTE | 2024-07-20 11:17 | PN.RENAL_ITS ---
<Statement entered by Hallie Car MD - 07/20/24 19:00> I have personally performed a face to face assessment of the patient and have reviewed the MAAME Note. Ca is high. likely related to immobilization. SPEP pending Subjective Subjective Resting in bed. No overnight events. GI consulted. Objective Data Objective Data Vital Signs: Vital Signs Temp Pulse Resp BP Pulse Ox O2 Del Method O2 Flow Rate 97.0 F L 113 H 17 151/94 H 98 Nasal Cannula 2 07/20/24 08:40 07/20/24 08:40 07/20/24 08:40 07/20/24 08:40 07/20/24 08:40 07/20/24 08:40 07/20/24 08:00 FiO2 30 07/20/24 05:15 Oxygen Flow Rate (L/min) 2 Oxygen Delivery Method Nasal Cannula Weight: 88.6 kg Body Mass Index (BMI) 28.2 Intake & Output: Intake and Output for Last 24 Hours 07/18/24 07/19/24 07/20/24 23:59 23:59 23:59 Intake Total 312 / 712 1062 / 1062 Output Total 2840 / 3040 595 / 595 350 / 350 Balance -2528 / -2328 467 / 467 -350 / -350 Medical Nutrition Assessment Dietitian: Malnutrition Criteria Met Start: 07/19/24 14:03 Freq: Status: Active Protocol: Document 07/20/24 09:31 RYANN (Rec: 07/20/24 09:31 SLA [id number]) Nutrition Malnutrition Evidence of Malnutrition Exists Yes Malnutrition (severe): Acute Illness/Injury Evidenced By Suboptimal Energy Intake ( Severe),Weight Loss (Severe) Intake Problem Inadequate Oral Intake Etiology related to difficulty chewing/ swallowing and decreased appetite Signs/Symptoms as evidenced by taking less than 50% of meals and need for mechanically altered food Status Active Problem Clinical Problem Acute Disease or Injury Related Malnutrition Etiology Severe protein-calorie malnutrition in the context of acute on chronic disease related to inadequate oral intake and difficulty chewing/ swallowing Signs/Symptoms as evidenced by ~5% unintentional weight loss x 1 week, taking less than 50% meals since admit, PO meeting less than 50% estimated nutrition needs and need for pureed-consistency food Status Active Problem Recommendation Dietitian Recommendations/Changes When medically able, rec KENDY to Cardiac/Sodium Restricted diet - consistency per WORKFORCE CONSULTANT When medically able, 120mL PO Nepro with meals. When medically able, rec fortified pudding w/ lunch and dinner tray. Lab / Micro Data 07/20/24 08:15 07/20/24 08:15 Labs: Laboratory Results - last 24 hr 07/20/24 08:15: WBC 12.5 H, RBC 2.42 L, Hgb 8.5 L, Hct 27.1 L, MCV 112.0 H, MCH 35.1 H, MCHC 31.4 L, RDW Std Deviation 63.7 H, RDW Coeff of Justine 16.8 H, Plt Count 131 L, MPV 8.9, Immature Gran % (Auto) 1.800 H, Neut % (Auto) 80.5 H, L ymph % (Auto) 9.7 L, Mccreary % (Auto) 7.7, Eos % (Auto) 0.1, Baso % (Auto) 0.2, A bsolute Neuts (auto) 10.1 H, Absolute Lymphs (auto) 1.21, Nucleated RBC % 0, Sodium 141, Potassium 4.2, Chloride 107, Carbon Dioxide 26.0, Anion Gap 8, BUN 39 H, Creatinine 3.22 H, Estim Creat Clear Calc 23.71, Est GFR (MDRD) Af Amer 25 L, Est GFR (MDRD) Non-Af 21 L, BUN/Creatinine Ratio 12.1, Glucose 107 H, Calcium 11.9 H Micro: Microbiology 07/13/24 15:20 Blood Culture (Wb) - Anticubital Left Blood Culture - Final No growth in 5 days. 07/18/24 06:30 Stool Stool Occult Blood (JEROME) - Final Occult Blood Positive 07/14/24 05:08 Sputum, Expectorated/Coughed Gram Stain - Final 07/14/24 05:08 Sputum, Expectorated/Coughed Respiratory Culture - Final 07/14/24 09:20 Mucosa - Nose Coronavirus COVID-19 PCR - Final 07/14/24 04:29 Urine, Random Legionella Antigen - Final 07/14/24 04:29 Urine, Random Streptococcus pneumoniae Antigen (M - Final 07/13/24 16:35 Mucosa - Nasopharyngeal Respiratory Panel (PCR) - Final 07/13/24 21:54 Nasal Secretion SARS-CoV-2 Antigen (Rapid) - Final Physical Exam Narrative Alert, awake, oriented x 3 no obvious distress s1s2 no murmurs lungs clear abdomen soft, nontender Trace nonpitting edema bilateral lower legs. Tunneled dialysis catheter dressing clean, dry and intact Assessment & Plan Assessment/Plan (1) ESRD (end stage renal disease): PLAN: - ESRD secondary to biopsy-proven ATN with no noted recovery. Currently on hemodialysis Saturday, , Saturday schedule. No acute indication for BINDER TECHNICIAN today, next dialysis tomorrow with fluid removal. -Left lower extremity cellulitis; IV antibiotics. Venous Duplex no evidence of DVT -Pneumonia; on IV antibiotics. -History of hypertension; blood pressures are low side but stable. He is not on any antihypertensives now. - CT chest report reviewed reviewed. Appears to have severe osteopenia, loss of bone mass. Most likely related to immobilization. No evidence of myeloma on kidney biopsy done earlier this year. PSA is normal. Serum protein electrophoresis ordered, results pending. calcium relatively stable. -Anemia of chronic disease, hemoglobin remains mid 8 range. GI consulted.
--- NOTE | 2024-07-20 12:29 | CASEMGMT ---
Social Work SW met with pt and SHANA Russell to discuss discharge plan. SW reviewed therapy notes with pt and Yvonne. After discussion regarding pts functional ability, pt and Yvonne are agreeable that pt cannot return home and will need SNF placement. EBONIE reviewed list of SNF providers with pt and Yvonne. Pt requesting that referrals be made to the highest star rating facilities in order on the list. [facility] is a 5 star facility. DC produce assistant updated and referral to be sent. Plan: SNF, pending acceptance and precert TEJAS Lindo
--- NOTE | 2024-07-20 12:31 | PCM.PN.ID ---
Physical Exam Narrative Breathing better, no fever, no n/v/d. Const alert and no apparent distress General Appearance: cooperative Resp normal air movement and clear to auscultation bilaterally Cardio regular rate and regular rhythm GI soft to palpation, non-tender and non-distended Skin no rashes or lesions noted ID ID: Route of nutrition/ use of supplements: [] Nutritional Intake: [] IV Site: [] Calderon Catheter: [] Assessment & Plan Assessment/Plan (1) ESRD (end stage renal disease): (2) Left leg cellulitis: (3) Acute hypoxemic respiratory failure: PLAN: Feeling a little better, on doxy/unasyn, will stop abx today. will follow (4) Chronic hypoxemic respiratory failure:
--- NOTE | 2024-07-20 13:54 | CASEMGMT ---
Addendum entered by Sherice Lopez 07/20/24 14:26: [facility] declined referral. Sherice Lopez DC Planning Asst. Original Note: Discharge Planning Referral sent to [facility] via [facility]. Sherice Lopez DC Planning Asst.
[2024-07-20] MEDS: Albuterol 2.5 MG/3 ML VIAL.NEB. INHALATION (15:36)
[2024-07-20] MEDS: Baclofen 10 MG Tablet PO (15:47)
--- NOTE | 2024-07-20 16:13 | CASEMGMT ---
Discharge Planning Referral sent via [facility] to Karie Patterson. Sherice Lopez DC Planning Asst.
--- NOTE | 2024-07-20 18:53 | CON.PCM.GI_ITS ---
HPI Consult Data Date of Consult: 07/20/24 HPI Narrative Reason for Consultation: Possible GI bleed HPI Narrative: ZIYAD BAER, is a 69 M who originally presented to the emergency department to come the hospital on 07/13/2024 with a chief complaint of shortness of breath. The patient is dialysis dependent and typically goes to dialysis on Saturday, , and Saturday. He has not been compliant with his diet has not missed any dialysis sessions. He underwent a CTA which showed bibasilar infiltrates and he was started on IV antibiotics. He also underwent hemodialysis. He wears CPAP/BiPAP at night. He was diagnosed with hypercapnic respiratory failure. He underwent barium swallow which apparently reveals significant O/P dysphagia. He underwent a swallowing study and it did show poor clearance of the esophagus along with some oropharyngeal dysphagia. He was also given lactulose for constipation and was having multiple bowel movements that turned out to be Hemoccult positive. His hemoglobin was slowly trending down so anticoagulation was stopped. [facility] Medical History Essential hypertension Atrial flutter Hx of pulmonary embolus Obstructive sleep apnea FELA (obstructive sleep apnea) Hypertension Cancer Psoriasis Home Medications ?Medication ?Instructions ?Recorded ?Last Taken ?Type amlodipine 10 mg tablet 10 mg PO QHS Blood pressure 10/14/19 10/17/20 History escitalopram oxalate 20 mg tablet 20 mg PO DAILY Check with primary 10/14/19 10/22/22 History doctor bupropion HCl 75 mg tablet 75 mg PO DAILY Depression 09/18/22 Unknown History bethanechol chloride 25 mg tablet 25 mg PO TID 30 days #90 tabs 01/07/23 Unknown Rx albuterol sulfate 90 mcg/actuation 2 puff inhalation Q6H sob 01/14/23 Unknown History aerosol inhaler acetaminophen 325 mg tablet 650 mg (2 x 325 mg) PO Q6H PRN PRN 01/17/23 Unknown Rx Pain 1-10 Or Fever>100.7 #0 tabs ferrous sulfate 325 mg (65 mg 325 mg PO DAILY@1200 Check with 03/08/23 Unknown History iron) tablet (FeroSul) primary doctor fluticasone propionate 50 2 spray NASAL DAILY Check with 03/08/23 Unknown History mcg/actuation nasal primary doctor spray,suspension lidocaine 5 % topical patch 1 patch topical 0800 Check with 03/08/23 Unknown History primary doctor magnesium chloride 64 mg 250 mg PO DAILY Check with primary 03/08/23 Unknown History (magnesium chloride) doctor tablet,delayed release (Mag 64) vit A 300 mcg-C 200 mg-E 27 1 cap PO DAILYCM Check with 03/08/23 Unknown History mg-lutein 2 mg and minerals tablet primary doctor (Healthy Eyes) apixaban 5 mg tablet (Eliquis) 5 mg PO BID 30 days #60 tabs 03/13/23 Unknown Rx sennosides 8.6 mg-docusate sodium 2 tab PO BID #0 tabs 03/13/23 Unknown Rx 50 mg tablet (Stool Softener-Stimulant Laxative) cholecalciferol (vitamin D3) 1,250 1,250 mcg PO QWEEK 06/19/23 Unknown History mcg (50,000 unit) capsule colestipol 1 gram tablet 1 g PO DAILY 06/19/23 Unknown History ketoconazole 2 % topical cream 1 applic topical DAILY 06/19/23 Unknown History lisinopril 40 mg tablet 40 mg PO QHS 06/19/23 Unknown History teriparatide 20 mcg/dose (600 20 mcg subcut DAILY 06/19/23 Unknown History mcg/2.4 mL) subcutaneous pen injector (Forteo) baclofen 10 mg tablet 10 mg PO TID PRN muscle spasm 07/26/23 Unknown History carvedilol 25 mg tablet 25 mg PO BID Check with primary 07/26/23 Unknown History doctor cyclobenzaprine 5 mg tablet 5 mg PO TID PRN muscle spasm 07/26/23 Unknown History furosemide 20 mg tablet 20 mg PO DAILY PRN edema 07/26/23 Unknown History potassium chloride 10 mEq 10 meq PO DAILY PRN WITH LASIX 07/26/23 Unknown History tablet,extended release sildenafil 100 mg tablet 100 mg PO DAILY PRN SEE PCP 07/26/23 Unknown History cefuroxime axetil 500 mg tablet 500 mg PO BID #20 tabs 06/01/24 Unknown Rx metronidazole 500 mg tablet 500 mg PO BID #20 tabs 06/01/24 Unknown Rx ondansetron 8 mg disintegrating 8 mg PO Q8H PRN nausea and 06/01/24 Unknown Rx tablet vomiting #20 tabs budesonide-formoterol HFA 160 2 puff inhalation BID 07/13/24 Unknown History mcg-4.5 mcg/actuation aerosol inhaler gabapentin 300 mg capsule 300 mg PO DAILY 07/13/24 Unknown History losartan 25 mg tablet 25 mg PO DAILY 07/13/24 Unknown History oxycodone-acetaminophen 5 mg-325 1 tab PO Q8H PRN PRN pain 07/13/24 Unknown History mg tablet sevelamer carbonate 800 mg tablet 800 mg PO 4X/DAY 07/13/24 Unknown History tizanidine 2 mg tablet 2 mg PO TID PRN 07/13/24 Unknown History vitamin B complex-vitamin C-folic 1 tab PO DAILY 07/13/24 Unknown History acid 0.8 mg tablet (Shannon-Dia) Allergy/AdvReac Type Severity Reaction Status Date / Time lorazepam Allergy Other Verified 07/13/24 10:43 Penicillins Allergy Itching Verified 07/13/24 10:43 poison ever extract Allergy Itching Verified 07/13/24 10:43 Family History Mother CVA (cerebral vascular accident) Father CAD (coronary artery disease) Hypertension Cancer Prostate Other Brain aneurysm Heart disease Prostate CA Surgical History Status post laminectomy History of carpal tunnel surgery History of herniorrhaphy Hx of cholecystectomy Hx of appendectomy Social History household members: spouse Smoking Status: Former smoker alcohol intake: current alcohol intake frequency: 3 or more drinks per day substance use type: does not use ROS Constitutional Constitutional: Reports chills, fatigue, malaise and weakness; Denies anorexia, change in weight, fever(s), night sweats or other Eyes Eyes: Denies blurry vision, change in eye color, change in vision, discharge from eye(s), double vision, erythema, eye pain, loss of vision or other ENT HEENT: Denies abnormal hearing, dysphagia, ear pain, epistaxis, headache(s), hearing loss, nasal congestion, nasal discharge, post nasal drip, sinus pressure, sore throat or other Cardiovascular Cardiovascular: Reports chest pain, dyspnea on exertion and orthopnea; Denies claudication, edema, lightheadedness, palpitations, paroxysmal nocturnal dyspnea, rapid heart rate, syncope or other Respiratory/Chest Respiratory/Chest: Reports cough, dyspnea, productive cough and shortness of breath with exertion Gastrointestinal Gastrointestinal: Denies abdominal pain, coffee ground emesis, constipation, diarrhea, dyspepsia, hematemesis, hematochezia, loose stools, melena, nausea, vomiting or other Genitourinary Genitourinary: Denies burning urination, difficulty urinating, dysuria, hematuria, nocturia, urinary frequency, urinary hesitancy, urinary incontinence, urinary urgency or other Musculoskeletal Musculoskeletal: Reports back pain, joint pain and joint stiffness; Denies arthralgias, joint swelling, myalgias, neck pain or other Neurologic Neurologic: Denies abnormal gait, abnormal speech, confusion, disequilibrium, dizziness, focal weakness, headache(s), numbness, paresthesias, seizure-like activity, seizures, syncope, tingling, tremor(s) or other Psychiatric Psychiatric: Reports anxiety, depression and suicidal ideation; Denies homicidal ideation or other Endocrine Endocrinology: Denies change in body appearance, cold intolerance, excessive sweating, heat intolerance, polydipsia, polyuria or other Hematologic/Lymphatic Hematologic/Lymphatic: Denies anemia, easy bleeding, easy bruising, lymphadenopathy or other Allergic/Immunologic Allergic/Immunologic: Denies rhinitis, hives, eczemia, asthma or other Physical Exam Narrative Breathing better, no fever, no n/v/d. Const alert and no apparent distress General Appearance: cooperative Resp normal air movement and clear to auscultation bilaterally Cardio regular rate and regular rhythm GI soft to palpation, non-tender and non-distended Skin no rashes or lesions noted Medical Records Data Medical Nutrition Assessment Dietitian: Malnutrition Criteria Met Start: 07/19/24 14:03 Freq: Status: Active Protocol: Document 07/20/24 09:31 [facility] (Rec: 07/20/24 09:31 [facility] [id number]) Nutrition Malnutrition Evidence of Malnutrition Exists Yes Malnutrition (severe): Acute Illness/Injury Evidenced By Suboptimal Energy Intake ( Severe),Weight Loss (Severe) Intake Problem Inadequate Oral Intake Etiology related to difficulty chewing/ swallowing and decreased appetite Signs/Symptoms as evidenced by taking less than 50% of meals and need for mechanically altered food Status Active Problem Clinical Problem Acute Disease or Injury Related Malnutrition Etiology Severe protein-calorie malnutrition in the context of acute on chronic disease related to inadequate oral intake and difficulty chewing/ swallowing Signs/Symptoms as evidenced by ~5% unintentional weight loss x 1 week, taking less than 50% meals since admit, PO meeting less than 50% estimated nutrition needs and need for pureed-consistency food Status Active Problem Recommendation Dietitian Recommendations/Changes When medically able, rec KENDY to Cardiac/Sodium Restricted diet - consistency per TAPE TRANSFERRER When medically able, 120mL PO Nepro with meals. When medically able, rec fortified pudding w/ lunch and dinner tray. Lab / Micro Data 07/20/24 08:15 07/20/24 08:15 Labs: Laboratory Results - last 24 hr 07/20/24 08:15: WBC 12.5 H, RBC 2.42 L, Hgb 8.5 L, Hct 27.1 L, MCV 112.0 H, MCH 35.1 H, MCHC 31.4 L, RDW Std Deviation 63.7 H, RDW Coeff of Justine 16.8 H, Plt Count 131 L, MPV 8.9, Immature Gran % (Auto) 1.800 H, Neut % (Auto) 80.5 H, L ymph % (Auto) 9.7 L, [place] % (Auto) 7.7, Eos % (Auto) 0.1, Baso % (Auto) 0.2, A bsolute Neuts (auto) 10.1 H, Absolute Lymphs (auto) 1.21, Nucleated RBC % 0, Sodium 141, Potassium 4.2, Chloride 107, Carbon Dioxide 26.0, Anion Gap 8, BUN 39 H, Creatinine 3.22 H, Estim Creat Clear Calc 23.71, Est GFR (MDRD) Af Amer 25 L, Est GFR (MDRD) Non-Af 21 L, BUN/Creatinine Ratio 12.1, Glucose 107 H, Calcium 11.9 H Assessment & Plan Assessment/Plan (1) Esophageal dysphagia: (2) Anemia: (3) GI bleed: PLAN: Plan 69 gentleman with COPD exacerbation complicated by bilateral pneumonia and hypercapnic respiratory failure on hemodialysis he is also developed worsening anemia and underwent swallowing study that showed abnormalities in his esophagram and on his evaluation by speech therapy. Anemia-differential diagnosis does include peptic ulcer disease, erosive esophagitis, malignancy. He should undergo an upper endoscopy to evaluate his upper GI tract. Esophageal dysphagia-differential diagnosis does include Tonia esophagitis associated with steroid and antibiotic therapy, eosinophilic esophagitis, esophageal ring, esophageal stricture. This will be evaluated he undergoes upper endoscopy. Charges/Coding Visit Charges Inpatient E&M: 60664 Init Hosp L3
[2024-07-21] VITALS (21 sets, daily range): BP systolic 127–192; BP diastolic 85–115; PULSE 62–92; RESP 12–24; TEMP 36.3–36.6; O2SAT 93–100; BMI 27.1; BMI 26.1; BMI 27.2
[2024-07-21 04:02] LABS: Absolute Lymphocyte Count 1.05 X10^3/uL (0.83-4.51); Absolute Neutrophil Count 10.1 X10^3/uL (2.0-7.7); Basophil# 0.01 X10^3/uL; Basophil% 0.1 % (0-1); Eosinophil# 0.02 X10^3/uL; Eosinophils% 0.2 % (0-5); Hematocrit 24.9 % (40-54); Hemoglobin 7.7 g/dL (13.0-16.5); Lymphocyte # 1.05 X10^3/ul (0.83-4.51); Lymphocyte % 8.6 % (19-41); Mean Corp Hgb Conc 30.9 g/dL (32-36); Mean Corpuscular Hgb 35.5 pg (27.0-32.0); Mean Corpuscular Volume 114.7 fL (80-94); Mean Platelet Vol. 8.7 fl (6.2-12.0); Monocyte# 0.92 X10^3/uL; Monocyte% 7.5 % (0-10); NRBC Flagged by Analyzer 0 % (0-5); Neutrophil # 10.11 X10^3/uL (2.7-7.7); Neutrophil % 82.2 % (47-70); POSITIVE MORPHOLOGY YES; Platelet Count 136 K/mm3 (150-450); RBC Distribution Width CV 17.1 % (11.6-14.6); RBC Distribution Width SD 66.4 fl (35.1-43.9); Red Blood Count 2.17 M/mm3 (4.6-6.2); White Blood Count 12.3 K/mm3 (4.4-11.0)
[2024-07-21 04:22] LABS: Anion Gap 6 (5-15); BUN 45 mg/dL (7-18); BUN/Creat Ratio 12.7 RATIO (10-20); Calcium,Total 11.4 mg/dL (8.5-10.1); Chloride 107 mmol/L (98-107); Creatinine, Serum 3.55 mg/dL (0.70-1.30); EST Glomerular Filtration Rate 18 mL/min (>60); Est Glom Filt Rate - Afr Amer 22 mL/min (>60); Estimated Creatinine Clearance 21.51 ml/min; Glucose 92 mg/dL (74-106); Potassium 4.5 mmol/L (3.5-5.1); Sodium Level 142 mmol/L (136-145)
[2024-07-21 04:31] LABS: Differential Indicated SCAN CRITERIA MET
[2024-07-21 04:53] LABS: Anisocytosis 2+
[2024-07-21] MEDS: Budesonide Respules 0.5 MG/2 ML AMPUL.NEB. INHALATION ×2 (07:51→19:29)
[2024-07-21] MEDS: Ipratropium/Albuterol Sulfate 3 ML AMPUL.NEB INHALATION ×2 (07:51→19:29)
[2024-07-21] MEDS: 0.9% Saline Lock 10 ML Syringe IV ×2 (08:03→09:00)
[2024-07-21] MEDS: 0.9% Normal Saline 1,000 ML IV.SOLN. 1000 ML OPERA.SITE ×2 (08:03→08:59)
[2024-07-21] MEDS: PureFlow B 2K Dialysis Soln 1 BAG 6 BAG PF ×3 (08:04→13:25)
[2024-07-21] MEDS: Baclofen 10 MG Tablet PO (08:47)
[2024-07-21] MEDS: Acetaminophen 325 MG Tablet 650 MG PO (08:47)
[2024-07-21] MEDS: oxyCODONE 5 MG Tablet PO ×2 (08:47→21:10)
[2024-07-21] MEDS: Heparin 10,000 UNITS/10 ML Vial IV (09:00)
--- NOTE | 2024-07-21 09:29 | CASEMGMT ---
Social Work SW received message in [facility] from [facility] inquiring if [facility] would transport pt to and from dialysis. SW called [facility], spoke w/Jose Ramon. He states it would be very difficult, a facility in [facility] would be better. SW let d/c demand planning manager Sherice know, she will send referral to [facility] as this is the only facility in [facility]. SW reviewed the list, most of the facilities are 20 miles from pt home. SW will continue to follow. BARON Pro
--- NOTE | 2024-07-21 09:36 | CASEMGMT ---
Addendum entered by Sherice Lopez 07/21/24 13:08: [facility] declined referral. Sherice Lopez DC Planning Asst. Original Note: Discharge Planning Referral sent to [facility]. Sherice Lopez DC Planning Asst.
--- NOTE | 2024-07-21 11:14 | CASEMGMT ---
Social Work SW met w/pt and MATTHEW Yvonne in room. Initially Yvonne shared w/SW how to go about getting copies of pt's recent CT, as per Yvonne the doctor wanted this information. SW passed it on to her. We then discussed SNF placement. SW let pt and Yvonne know that [facility] and [facility] said no, and [facility]ie wanted to know if family could transport pt to and from dialysis. EBONIE explained that [facility] cannot take pt to and from dialysis from [facility]. Yvonne states that pt is having a lot of issues with his back and may have difficulty sitting up to get to dialysis. She asked about facilities w/dialysis on site. SW explained will look into this and let she and pt know, both are okay w/pt going further away if the facility has dialysis on site. SW called [facility], they are not in network. Sherice, d/c executive community planning will send a referral to [facility] as they are in network and have dialysis on site. [facility] had responded that their sister facility in [place] has dialysis on site but is [facility], not [facility], so if pt would be willing to switch providers, they may be able to take pt. SW sent a message back inquiring if that facility takes pt's insurance. Referrals also sent to [facility] and [facility] in case we cannot find a facility w/dialysis on site. [facility] already responded that they are full. SW will continue to follow, waiting for an answer from [facility] on if their sister facility takes pt's insurance. SW will continue to follow. BARON Pro
[2024-07-21 12:09] LABS: Albumin 2.3 g/dL (2.9-4.4); Alpha-1-Globulins 0.3 g/dL (0.0-0.4); Alpha-2-Globulins 0.9 g/dL (0.4-1.0); Gamma Globulin 0.5 g/dL (0.4-1.8); Immunoglobulin A 29 mg/dL (61-437); Immunoglobulin G 223 mg/dL (603-1613); Immunoglobulin M 6 mg/dL (20-172); PROEL- TOTAL PROTEIN 4.5 g/dL (6.0-8.5)
--- NOTE | 2024-07-21 13:18 | CASEMGMT ---
Addendum entered by Sherice Lopez 07/21/24 14:12: [facility] has accepted. Sherice Lopez DC Planning Asst. Original Note: Discharge Planning Referral sent to [facility] via [facility]. Sherice Lopez DC Planning Asst.
[2024-07-21] MEDS: Menthol/Lanolin/Calamine/Znox 113 GM Tube 1 APPLIC TOPICAL ×2 (13:24→21:13)
[2024-07-21] MEDS: buPROPion 75 MG Tablet PO (13:24)
--- NOTE | 2024-07-21 14:15 | PN.RENAL_ITS ---
Subjective Subjective mental status better today family bedside Objective Data Objective Data Vital Signs: Vital Signs Temp Pulse Resp BP Pulse Ox O2 Del Method O2 Flow Rate 98 F 62 14 137/112 H 96 Nasal Cannula 3 07/21/24 11:14 07/21/24 11:14 07/21/24 11:14 07/21/24 11:14 07/21/24 11:14 07/21/24 11:14 07/21/24 13:18 FiO2 30 07/21/24 05:03 Oxygen Flow Rate (L/min) 3 Oxygen Delivery Method Nasal Cannula Weight: 85 kg Body Mass Index (BMI) 26.1 Intake & Output: Intake and Output for Last 24 Hours 07/19/24 07/20/24 07/21/24 23:59 23:59 23:59 Intake Total 1062 / 1062 112 / 112 50 / 50 Output Total 595 / 595 600 / 600 6040 / 6040 Balance 467 / 467 -488 / -488 -5990 / -5990 Medical Nutrition Assessment Dietitian: Malnutrition Criteria Met Start: 07/19/24 14:03 Freq: Status: Active Protocol: Document 07/20/24 09:31 [facility] (Rec: 07/20/24 09:31 [facility] [id number]) Nutrition Malnutrition Evidence of Malnutrition Exists Yes Malnutrition (severe): Acute Illness/Injury Evidenced By Suboptimal Energy Intake ( Severe),Weight Loss (Severe) Intake Problem Inadequate Oral Intake Etiology related to difficulty chewing/ swallowing and decreased appetite Signs/Symptoms as evidenced by taking less than 50% of meals and need for mechanically altered food Status Active Problem Clinical Problem Acute Disease or Injury Related Malnutrition Etiology Severe protein-calorie malnutrition in the context of acute on chronic disease related to inadequate oral intake and difficulty chewing/ swallowing Signs/Symptoms as evidenced by ~5% unintentional weight loss x 1 week, taking less than 50% meals since admit, PO meeting less than 50% estimated nutrition needs and need for pureed-consistency food Status Active Problem Recommendation Dietitian Recommendations/Changes When medically able, rec KENDY to Cardiac/Sodium Restricted diet - consistency per [employer] When medically able, 120mL PO Nepro with meals. When medically able, rec fortified pudding w/ lunch and dinner tray. Lab / Micro Data 07/21/24 03:55 07/21/24 03:55 Labs: Laboratory Results - last 24 hr 07/17/24 07:25: Total Protein (PEP) 4.5 L, Globulin 2.2, IgG 223 L, IgA 29 L, I gM 6 L, Immunofixation Screen Comment H, Albumin (CARLA) 2.3 L, Albumin/Globulin (CARLA) 1.1, [id number]-[id number] CARLA 0.3, Rmoph-4-Wpvqmppeb CARLA 0.9, Beta-Globulins (CARLA) 0.5 L, Gamma Globulins (CARLA) 0.5, CARLA M-Shar 0.3 H, CARLA Comments Comment 07/21/24 03:55: WBC 12.3 H, RBC 2.17 L, Hgb 7.7 L, Hct 24.9 L, MCV 114.7 H, MCH 35.5 H, MCHC 30.9 L, RDW Std Deviation 66.4 H, RDW Coeff of Justine 17.1 H, Plt Count 136 L, MPV 8.7, Immature Gran % (Auto) 1.400 H, Neut % (Auto) 82.2 H, L ymph % (Auto) 8.6 L, [place] % (Auto) 7.5, Eos % (Auto) 0.2, Baso % (Auto) 0.1, A bsolute Neuts (auto) 10.1 H, Absolute Lymphs (auto) 1.05, Nucleated RBC % 0, Anisocytosis 2+, Sodium 142, Potassium 4.5, Chloride 107, Carbon Dioxide 29.0, Anion Gap 6, BUN 45 H, Creatinine 3.55 H, Estim Creat Clear Calc 21.51, Est GFR (MDRD) Af Amer 22 L, Est GFR (MDRD) Non-Af 18 L, BUN/Creatinine Ratio 12.7, Glucose 92, Calcium 11.4 H Micro: Microbiology 07/13/24 15:20 Blood Culture (Wb) - Anticubital Left Blood Culture - Final No growth in 5 days. 07/18/24 06:30 Stool Stool Occult Blood (JEROME) - Final Occult Blood Positive 07/14/24 05:08 Sputum, Expectorated/Coughed Gram Stain - Final 07/14/24 05:08 Sputum, Expectorated/Coughed Respiratory Culture - Final 07/14/24 09:20 Mucosa - Nose Coronavirus COVID-19 PCR - Final 07/14/24 04:29 Urine, Random Legionella Antigen - Final 07/14/24 04:29 Urine, Random Streptococcus pneumoniae Antigen (M - Final 07/13/24 16:35 Mucosa - Nasopharyngeal Respiratory Panel (PCR) - Final 07/13/24 21:54 Nasal Secretion SARS-CoV-2 Antigen (Rapid) - Final Physical Exam Narrative Alert, awake, oriented x 3 no obvious distress s1s2 no murmurs lungs clear abdomen soft, nontender Trace nonpitting edema bilateral lower legs. Tunneled dialysis catheter dressing clean, dry and intact Assessment & Plan Assessment/Plan (1) ESRD (end stage renal disease): PLAN: - ESRD secondary to biopsy-proven ATN with no noted recovery. Currently on hemodialysis Saturday, , Saturday schedule. HD today 3-4 L fluid removal -Left lower extremity cellulitis; IV antibiotics. Venous Duplex no evidence of DVT -Pneumonia; on IV antibiotics. ID note reviewed. -History of hypertension; blood pressures are low side but stable. He is not on any antihypertensives now. - CT chest report reviewed reviewed. Appears to have severe osteopenia, loss of bone mass. Most likely related to immobilization. No evidence of myeloma on kidney biopsy done earlier this year. PSA is normal. Serum protein electrophoresis ordered, possible kappa light chain. will send serum kappa and lambda light chain assay
--- NOTE | 2024-07-21 14:42 | CASEMGMT ---
Social Work SW called [facility], as per Alyssia the only two [facility] facilities w/[facility] on site is [facility] and [facility]. SW created a new SNF list by utilizing [employer] and the [facility] website and by calling facilities that have dialysis onsite and take [facility], printed the list and put in pt's room. SW called pt's ELVIESteve Russell and let her know the list is there, to look at the list and let SW know tomorrow where they may want to go.? SW let her know that her know that [facility] is full and [facility] would mean changing dialysis companies temporarily.?SW unaware of what company [facility] has as they did not call SW back.? [place], [facility] and [facility] all use [facility] which would not require a switch from [facility].? EBONIE will continue to follow. BARON Pro
--- NOTE | 2024-07-21 15:31 | CASEMGMT ---
Social Work SW spoke w/admissions from [facility]. SW informed that their dialysis is attached to the facility, confirmed they take [facility]. As per admissions they may have an opening by the end of the week. SW will continue to follow. BARON Pro
--- NOTE | 2024-07-21 17:34 | PN.GI_ITS ---
Subjective Subjective Patient sleeping off and on but more coherent today. He has been on clear liquids today. Objective Data Objective Data Vital Signs: Vital Signs Temp Pulse Resp BP Pulse Ox O2 Del Method O2 Flow Rate 97.4 F L 69 17 136/90 H 99 Bi-pap 3 07/21/24 16:00 07/21/24 16:00 07/21/24 16:00 07/21/24 16:00 07/21/24 16:00 07/21/24 16:00 07/21/24 13:18 FiO2 30 07/21/24 05:03 Oxygen Flow Rate (L/min) 3 Oxygen Delivery Method Bi-pap Weight: 195 lb 8 oz Body Mass Index (BMI) 27.2 Intake & Output: Intake and Output for Last 24 Hours 07/19/24 07/20/24 07/21/24 23:59 23:59 23:59 Intake Total 1062 / 1062 112 / 112 50 / 50 Output Total 595 / 595 600 / 600 6040 / 6040 Balance 467 / 467 -488 / -488 -5990 / -5990 Medical Nutrition Assessment Dietitian: Malnutrition Criteria Met Start: 07/19/24 14:03 Freq: Status: Active Protocol: Document 07/20/24 09:31 RYANN (Rec: 07/20/24 09:31 SLA [id number]) Nutrition Malnutrition Evidence of Malnutrition Exists Yes Malnutrition (severe): Acute Illness/Injury Evidenced By Suboptimal Energy Intake ( Severe),Weight Loss (Severe) Intake Problem Inadequate Oral Intake Etiology related to difficulty chewing/ swallowing and decreased appetite Signs/Symptoms as evidenced by taking less than 50% of meals and need for mechanically altered food Status Active Problem Clinical Problem Acute Disease or Injury Related Malnutrition Etiology Severe protein-calorie malnutrition in the context of acute on chronic disease related to inadequate oral intake and difficulty chewing/ swallowing Signs/Symptoms as evidenced by ~5% unintentional weight loss x 1 week, taking less than 50% meals since admit, PO meeting less than 50% estimated nutrition needs and need for pureed-consistency food Status Active Problem Recommendation Dietitian Recommendations/Changes When medically able, rec KENDY to Cardiac/Sodium Restricted diet - consistency per SMELLER When medically able, 120mL PO Nepro with meals. When medically able, rec fortified pudding w/ lunch and dinner tray. Lab / Micro Data 07/21/24 03:55 07/21/24 03:55 Labs: Laboratory Results - last 24 hr 07/17/24 07:25: Total Protein (PEP) 4.5 L, Globulin 2.2, IgG 223 L, IgA 29 L, I gM 6 L, Immunofixation Screen Comment H, Albumin (CARLA) 2.3 L, Albumin/Globulin (CARLA) 1.1, Ypxso-7-Poiwolyqz CARLA 0.3, Smgff-2-Yyipestho CARLA 0.9, Beta-Globulins (CARLA) 0.5 L, Gamma Globulins (CARLA) 0.5, CARLA M-Shar 0.3 H, CARLA Comments Comment 07/21/24 03:55: WBC 12.3 H, RBC 2.17 L, Hgb 7.7 L, Hct 24.9 L, MCV 114.7 H, MCH 35.5 H, MCHC 30.9 L, RDW Std Deviation 66.4 H, RDW Coeff of Justine 17.1 H, Plt Count 136 L, MPV 8.7, Immature Gran % (Auto) 1.400 H, Neut % (Auto) 82.2 H, L ymph % (Auto) 8.6 L, Wright % (Auto) 7.5, Eos % (Auto) 0.2, Baso % (Auto) 0.1, A bsolute Neuts (auto) 10.1 H, Absolute Lymphs (auto) 1.05, Nucleated RBC % 0, Anisocytosis 2+, Sodium 142, Potassium 4.5, Chloride 107, Carbon Dioxide 29.0, Anion Gap 6, BUN 45 H, Creatinine 3.55 H, Estim Creat Clear Calc 21.51, Est GFR (MDRD) Af Amer 22 L, Est GFR (MDRD) Non-Af 18 L, BUN/Creatinine Ratio 12.7, Glucose 92, Calcium 11.4 H Micro: Microbiology 07/13/24 15:20 Blood Culture (Wb) - Anticubital Left Blood Culture - Final No growth in 5 days. 07/18/24 06:30 Stool Stool Occult Blood (JEROME) - Final Occult Blood Positive 07/14/24 05:08 Sputum, Expectorated/Coughed Gram Stain - Final 07/14/24 05:08 Sputum, Expectorated/Coughed Respiratory Culture - Final 07/14/24 09:20 Mucosa - Nose Coronavirus COVID-19 PCR - Final 07/14/24 04:29 Urine, Random Legionella Antigen - Final 07/14/24 04:29 Urine, Random Streptococcus pneumoniae Antigen (M - Final 07/13/24 16:35 Mucosa - Nasopharyngeal Respiratory Panel (PCR) - Final 07/13/24 21:54 Nasal Secretion SARS-CoV-2 Antigen (Rapid) - Final Physical Exam Narrative Alert, awake, oriented x 3 no obvious distress s1s2 no murmurs lungs clear abdomen soft, nontender Trace nonpitting edema bilateral lower legs. Tunneled dialysis catheter dressing clean, dry and intact Assessment & Plan Assessment/Plan (1) Esophageal dysphagia: (2) Anemia: (3) GI bleed: PLAN: Plan 69 gentleman with COPD exacerbation complicated by bilateral pneumonia and hypercapnic respiratory failure on hemodialysis he is also developed worsening anemia and underwent swallowing study that showed abnormalities in his esophagram and on his evaluation by speech therapy. Anemia-differential diagnosis does include peptic ulcer disease, erosive esophagitis, malignancy. He should undergo an upper endoscopy to evaluate his upper GI tract. Esophageal dysphagia-differential diagnosis does include Tonia esophagitis associated with steroid and antibiotic therapy, eosinophilic esophagitis, esophageal ring, esophageal stricture. This will be evaluated he undergoes upper endoscopy. Plan is for EGD tomorrow. N.p.o. past midnight. Charges/Coding Visit Charges Inpatient E&M: 92090 [facility] Hosp L3
--- NOTE | 2024-07-21 18:24 | PN.HOSP_ITS ---
Subjective Subjective No issues overnight, he did have a slight decrease in his hemoglobin today from 8.5 down to 7.7 Objective Data Objective Data Vital Signs: Vital Signs Temp Pulse Resp BP Pulse Ox O2 Del Method O2 Flow Rate 97.4 F L 69 17 136/90 H 99 Bi-pap 3 07/21/24 16:00 07/21/24 16:00 07/21/24 16:00 07/21/24 16:00 07/21/24 16:00 07/21/24 16:00 07/21/24 13:18 FiO2 30 07/21/24 14:48 Oxygen Flow Rate (L/min) 3 Oxygen Delivery Method Bi-pap Weight: 195 lb 8 oz Body Mass Index (BMI) 27.2 Intake & Output: Intake and Output for Last 24 Hours 07/20/24 07/21/24 07/22/24 03:59 03:59 03:59 Intake Total 662 / 662 112 / 112 50 / 50 Output Total 395 / 395 600 / 600 6040 / 6040 Balance 267 / 267 -488 / -488 -5990 / -5990 Medical Nutrition Assessment Dietitian: Malnutrition Criteria Met Start: 07/19/24 14:03 Freq: Status: Active Protocol: Document 07/20/24 09:31 RYANN (Rec: 07/20/24 09:31 RYANN [id number]) Nutrition Malnutrition Evidence of Malnutrition Exists Yes Malnutrition (severe): Acute Illness/Injury Evidenced By Suboptimal Energy Intake ( Severe),Weight Loss (Severe) Intake Problem Inadequate Oral Intake Etiology related to difficulty chewing/ swallowing and decreased appetite Signs/Symptoms as evidenced by taking less than 50% of meals and need for mechanically altered food Status Active Problem Clinical Problem Acute Disease or Injury Related Malnutrition Etiology Severe protein-calorie malnutrition in the context of acute on chronic disease related to inadequate oral intake and difficulty chewing/ swallowing Signs/Symptoms as evidenced by ~5% unintentional weight loss x 1 week, taking less than 50% meals since admit, PO meeting less than 50% estimated nutrition needs and need for pureed-consistency food Status Active Problem Recommendation Dietitian Recommendations/Changes When medically able, rec KENDY to Cardiac/Sodium Restricted diet - consistency per REFINERY OPERATOR When medically able, 120mL PO Nepro with meals. When medically able, rec fortified pudding w/ lunch and dinner tray. Lab / Micro Data 07/21/24 03:55 07/21/24 03:55 Labs: Laboratory Results - last 24 hr 07/17/24 07:25: Total Protein (PEP) 4.5 L, Globulin 2.2, IgG 223 L, IgA 29 L, I gM 6 L, Immunofixation Screen Comment H, Albumin (CARLA) 2.3 L, Albumin/Globulin (CARLA) 1.1, Xzsao-6-Dwvrgjkza CARLA 0.3, Wpqlj-4-Qfkadeilz CARLA 0.9, Beta-Globulins (CARLA) 0.5 L, Gamma Globulins (CARLA) 0.5, CARLA M-Shar 0.3 H, CARLA Comments Comment 07/21/24 03:55: WBC 12.3 H, RBC 2.17 L, Hgb 7.7 L, Hct 24.9 L, MCV 114.7 H, MCH 35.5 H, MCHC 30.9 L, RDW Std Deviation 66.4 H, RDW Coeff of Justine 17.1 H, Plt Count 136 L, MPV 8.7, Immature Gran % (Auto) 1.400 H, Neut % (Auto) 82.2 H, L ymph % (Auto) 8.6 L, [place] % (Auto) 7.5, Eos % (Auto) 0.2, Baso % (Auto) 0.1, A bsolute Neuts (auto) 10.1 H, Absolute Lymphs (auto) 1.05, Nucleated RBC % 0, Anisocytosis 2+, Sodium 142, Potassium 4.5, Chloride 107, Carbon Dioxide 29.0, Anion Gap 6, BUN 45 H, Creatinine 3.55 H, Estim Creat Clear Calc 21.51, Est GFR (MDRD) Af Amer 22 L, Est GFR (MDRD) Non-Af 18 L, BUN/Creatinine Ratio 12.7, Glucose 92, Calcium 11.4 H Micro: Microbiology 07/13/24 15:20 Blood Culture (Wb) - Anticubital Left Blood Culture - Final No growth in 5 days. 07/18/24 06:30 Stool Stool Occult Blood (JEROME) - Final Occult Blood Positive 07/14/24 05:08 Sputum, Expectorated/Coughed Gram Stain - Final 07/14/24 05:08 Sputum, Expectorated/Coughed Respiratory Culture - Final 09/17/24 09:20 Mucosa - Nose Coronavirus COVID-19 PCR - Final 07/14/24 04:29 Urine, Random Legionella Antigen - Final 07/14/24 04:29 Urine, Random Streptococcus pneumoniae Antigen (M - Final 07/13/24 16:35 Mucosa - Nasopharyngeal Respiratory Panel (PCR) - Final 07/13/24 21:54 Nasal Secretion SARS-CoV-2 Antigen (Rapid) - Final Physical Exam Narrative General: Alert, Oriented x3, Cooperative, No apparent distress HEENT: Atraumatic, PERRLA, EOMI, Normocephalic Oral: Moist Mucosa Neck: Supple, No JVD Lungs: Diminished, Normal air movement, No rhonchi, No wheeze, No rales Cardiovascular: Regular rate, Regular Rhythm, Normal S1, Normal S2, No murmurs Abdomen: Soft, Non Tender, Non-Distended, No Hepato-splenomegaly Extremities: Trace edema, Capillary Refill Less than 3 Seconds Skin: No rashes, No breakdown, areas of chronic ecchymosis Musculoskeletal: No Tenderness to Palpation of Joints or Extremities Neurological: No focal neurological deficits, Motor Exam 5/5 strength throughout, Sensory exam intact to light touch and pain Psych/Mental Status: Flat Assessment & Plan Assessment/Plan (1) Acute hypoxemic respiratory failure: (2) Pneumonia of both lower lobes: (3) Hypokalemia: (4) Left leg cellulitis: PLAN: Plan Acute hypoxic respiratory failure secondary to volume overload/right lower lobe pneumonia: Chest x-ray and chest CTA individually reviewed. No evidence of pulmonary embolism. Bibasilar infiltrates present. Has thoracic and lumbar fusion with hardware. Continue vancomycin and Zosyn and azithromycin to cover MRSA, GNR including Pseudomonas and atypicals. COVID-19 PCR negative. Urinary antigens are negative. Respiratory panel negative. Gram stain pending. Continue incentive spirometry and PEP and Mucinex. Patient on BiPAP/NIPPV 07/15: Patient still short of breath and required 6 L of oxygen 07/16: On 5 L of oxygen. Breathing and respiratory status are gradually getting better. Sputum culture did not had enough specimen Therefore canceled. Will de-escalate the antibiotics patient had about 4 days of IV antibiotic therefore we will discontinue vancomycin. ID consulted. 07/17: Patient was seen by ID and recommended to continue cefepime and Zithromax. Zithromax was discontinued yesterday because of interaction with Seroquel which patient required for confusion/not able to tolerate BiPAP. Will change to doxycycline. Repeat chest x-ray was initially reviewed official report pending. Suboptimal x-ray, decreased volume especially on the left, rotated x-ray. Chronic scarring with bibasilar infiltrates. Thoracic and lumbar hardware. [facility] consult 07/18/2024: Cefepime was discontinued and currently on doxycycline and Unasyn 07/21/2024: Antibiotics stopped by ID on 07/20/2024 Left lower extremity cellulitis: Left leg is very tender. Covered with antibiotics as mentioned above. Venous duplex is ordered. Patient is on anticoagulant. Wound nurse to follow 07/15: Left leg feels better and patient can lift although weak, strength 4/5 at both knee joints 07/18/2024: Leg feels better today continue with antibiotics Acute encephalopathy with change in mental status, increased confusion, distraction, sometimes, disorientation, increased reaction time to respond and echolalia: Orientation cues. CT head was done which does not show acute abnormality but partial opacification of left maxillary sinus. Neurology consult. Resolved Hypokalemia -P.o. potassium given emergency department Serum magnesium 1.6 phosphorus 2.7. Patient is on hemodialysis. Potassium 3.4. 07/15: Mild hypokalemia but patient on hemodialysis. 07/16: K3.4. Acceptable K level as patient is on hemodialysis. End-stage renal disease -HD dependent -Continue home sevelamer -Consult nephrology -Patient is not compliant with diet -Patient does appear to be somewhat volume overloaded on exam 07/21/2024: Continue with dialysis appreciate nephrology's assistance managing electrolytes, serum protein electrophoresis ordered by nephrology Acute on chronic macrocytic anemia, multifactorial including CKD and chronic disease -H&H 8.4/26.5 decreased from 9.7/30.5%. Monitor CBC. 07/15: H&H 8.3/26%. Immature granulocytes 1.2%. Platelet count 104,000. Anemia workup ordered. 07/16: H&H 8.8/28%. Platelet count 120,000. Reticulocyte count 1.53 elevated. Immature reticulocyte fraction elevated therefore bone marrow active. Iron saturation and ferritin high. Overall suggestive of anemia of chronic disease History of thoracic compression fractures -Status post T7 laminectomy and decompression -Biopsies were taken at bedtime -Continue as needed pain medication once verified 07/18/2024: Fecal occult positive for blood, hemoglobin has actually been going up so we will monitor at this time. 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 -Hold Eliquis History of A-fib/flutter -Patient is on no rate controlling medications as his fib/flutter is not conjoined with RVR -Hold Eliquis secondary to possible GI bleed pending evaluation Hypertension -Medications have not yet been verified for hypertension -Hold all antihypertensives -Blood pressures are currently on the low side -As needed hydralazine for systolic blood pressure greater than 160 Aortic aneurysm -Stable ascending aortic aneurysm noted on most recent CTA -4.4 cm -Control blood pressure -Recommend outpatient follow-up FELA -Will transition nocturnal CPAP once off BiPAP COPD -Patient had irreversibly moderately severe mixed ventilatory defect with symmetric reduction in diffusing capacity noted on his PFTs from March 2023 -FEV1 was 54% predicted -Nebulizers as above -Recommend outpatient follow-up with pulmonary medicine after discharge Depression/suicidal ideation -Continue home bupropion -Case management consulted -Patient has no current plan DVT: SCDs Charges/Coding Visit Charges Inpatient E&M: 42253 Subs Hosp L2
[2024-07-22] VITALS (17 sets, daily range): BP systolic 122–136; BP diastolic 74–89; PULSE 60–88; RESP 12–22; TEMP 36.1–36.9; O2SAT 95–99; BMI 26.6
--- NOTE | 2024-07-22 | IMM_PTH ---
PATIENT: ZIYAD BAER Jr. LOC: [facility] U#:[id number] AGE/SX: 69/M ROOM: [facility] RE07/13/[address]: Dr. Gerardo Lynn DO : 1955 BED: 1 DIS: 07/28/2024 SPEC #: [id number] RECD: 07/24/24 11:34 STATUS: SOUT REQ #: [id number] TERESA: 07/22/24 00:[address]: Cecilio Gamboa DEPT: IMMUNOHISTOCHEMISTRY RECD BY: Bharathi Zamora ENTERED: 07/24/24 11:34 SP TYPE: IMMUNO OTHR DR: MD Dr. Martin Maciel MD Dr. Chitra Ganta, MD Dr. Derek Brown, DO Dr. David P Myers, MD Dr. Edward Matheis, MD Dr. Gautam Baskaran, MD Dr. Yordanos Habtegebriel, MD Dr. Hemant Dand, MD Dr. Jayaprakas Dasari, MD Dr. Jose Ochoa, MD Dr. Kimber Foust, MD Dr. Kathryn Lee, DO Dr. Lamia Aljundi, MD Dr. Nicholas F Kotsonis, MD Dr. Prakash Chand, MD Dr. Pritam Ghosh, MD Dr. Pavan Irukulla, MD Dr. Robert Leininger, MD Dr. Saad Farooqi, MD Dr. Sujoy Gill, MD Dr. Vikram Anand, MD Dr. William Haden, MD Tissues: Esophagus, NOS Procedures: P53 (initial) KI-67 (add) Comments: @ Ordering doctor for P53 edited from to @ by CHERIE at 07/24/24 1134 @ Ordering doctor for KI67. edited from to @ by CHERIE at 07/24/24 1134 @ Submitting doctor edited from to @ by CHERIE at 07/24/24 1134 PHYSICIAN & INSTITUTION [place] [id number] SPECIMEN INFORMATION: Tissue Source: Distal esophagus biopsy Clinical Info: Dysphagia Specimen Number: [id number] CPT code: [id number] METHODOLOGY: Deparaffinized sections of prefer/formalin-fixed tissue or PAP/DQ stained slides are incubated with monoclonal/polyclonal antibodies/oligonucleotide probes. Localization is made via biotin free immunoperoxidase method. Appropriate controls are performed and reacted as expected. Results on target cell population are indicated in the following table: RESULTS: ANTIBODY / CLONE RESULT P53 (DO-7) positive, wild type Ki-67 (30-9) positive, low These tests were developed and their performance characteristics determined by [facility]. They may not have been cleared or approved by the U.S. Food and Drug Administration. The FDA has determined that such clearance or approval is not necessary. The above immunohistochemical/dualISH markers are ordered and reviewed by the Pathologist. INTERPRETATION: Distal esophagus, biopsy: No evidence of dysplasia. AM.mr 07/27/2024
--- NOTE | 2024-07-22 05:55 | EKG12_ITS ---
Test Reason : AM EKG Blood Pressure : / mmHG Vent. Rate : 076 BPM Atrial Rate : 000 BPM P-R Int : 000 ms QRS Dur : 102 ms QT Int : 400 ms P-R-T Axes : 000 051 027 degrees QTc Int : 450 ms Atrial fibrillation with premature ventricular or aberrantly conducted complexes Nonspecific ST and T wave abnormality Abnormal ECG Confirmed by Luc Knox ([id number]), legal editor MARTY WASHINGTON ([id number]) on 07/22/2024 10:35:05 AM Referred By: Confirmed By:Luc Knox
[2024-07-22 07:16] LABS: Absolute Lymphocyte Count 0.97 X10^3/uL (0.83-4.51); Absolute Neutrophil Count 9.2 X10^3/uL (2.0-7.7); Eosinophil# 0.02 X10^3/uL; Eosinophils% 0.2 % (0-5); Hematocrit 28.4 % (40-54); Hemoglobin 8.8 g/dL (13.0-16.5); Lymphocyte # 0.97 X10^3/ul (0.83-4.51); Lymphocyte % 8.7 % (19-41); Mean Corpuscular Hgb 35.9 pg (27.0-32.0); Mean Corpuscular Volume 115.9 fL (80-94); Mean Platelet Vol. 9.2 fl (6.2-12.0); Monocyte# 0.84 X10^3/uL; Monocyte% 7.6 % (0-10); NRBC Flagged by Analyzer 0 % (0-5); Neutrophil # 9.17 X10^3/uL (2.7-7.7); Neutrophil % 82.7 % (47-70); POSITIVE MORPHOLOGY YES; Platelet Count 176 K/mm3 (150-450); RBC Distribution Width CV 17.6 % (11.6-14.6); RBC Distribution Width SD 73.8 fl (35.1-43.9); Red Blood Count 2.45 M/mm3 (4.6-6.2); White Blood Count 11.1 K/mm3 (4.4-11.0)
[2024-07-22] MEDS: Ipratropium/Albuterol Sulfate 3 ML AMPUL.NEB INHALATION ×3 (07:19→17:00)
[2024-07-22] MEDS: Budesonide Respules 0.5 MG/2 ML AMPUL.NEB. INHALATION (07:19)
[2024-07-22 07:23] LABS: Differential Indicated SCAN CRITERIA MET
[2024-07-22 07:55] LABS: Anion Gap 9 (5-15); BUN 37 mg/dL (7-18); BUN/Creat Ratio 11.5 RATIO (10-20); Calcium,Total 11.3 mg/dL (8.5-10.1); Chloride 106 mmol/L (98-107); Creatinine, Serum 3.22 mg/dL (0.70-1.30); EST Glomerular Filtration Rate 21 mL/min (>60); Est Glom Filt Rate - Afr Amer 25 mL/min (>60); Estimated Creatinine Clearance 23.71 ml/min; Glucose 91 mg/dL (74-106); Potassium 4.4 mmol/L (3.5-5.1); Sodium Level 141 mmol/L (136-145)
[2024-07-22 07:58] LABS: Differential Comment SCANNED
[2024-07-22 07:59] LABS: Anisocytosis 2+; Polychromasia RARE
--- NOTE | 2024-07-22 10:40 | CASEMGMT ---
This EBONIE and EBONIE Lucero met with patient and his friend/Healthcare Power of Lasting Floorworker, Yvonne. SW let them know that per SW Rebek[facility] has dialysis on site and might have an opening by the end of the week. Yvonne was agreeable to a referral being made to [facility]. EBONIE asked Sherice to send a referral to [facility]. Olga Carrion MSW MARTHA
[2024-07-22] MEDS: oxyCODONE 5 MG Tablet PO ×2 (10:55→20:29)
[2024-07-22] MEDS: Menthol/Lanolin/Calamine/Znox 113 GM Tube 1 APPLIC TOPICAL ×2 (10:57→20:18)
--- NOTE | 2024-07-22 11:50 | CASEMGMT ---
Addendum entered by Sherice Lopez 07/22/24 12:40: [place] declined. Sherice Lopez DC Planning Asst. Original Note: Discharge Planning Referral sent to [place] via [facility]. Sherice Lopez DC Planning Asst.
--- NOTE | 2024-07-22 12:00 | PN.HOSP_ITS ---
Subjective Subjective No issues overnight, resting comfortably on BiPAP Objective Data Objective Data Vital Signs: Vital Signs Temp Pulse Resp BP Pulse Ox O2 Del Method O2 Flow Rate 98.4 F 66 16 128/80 H 99 Nasal Cannula 4 07/22/24 10:25 07/22/24 10:25 07/22/24 10:25 07/22/24 10:25 07/22/24 10:25 07/22/24 10:25 07/22/24 10:25 FiO2 30 07/22/24 10:00 Oxygen Flow Rate (L/min) 4 Oxygen Delivery Method Nasal Cannula Weight: 190 lb 15.783 oz Body Mass Index (BMI) 26.6 Intake & Output: Intake and Output for Last 24 Hours 07/21/24 07/22/24 07/23/24 03:59 03:59 03:59 Intake Total 112 / 112 150 / 150 Output Total 600 / 600 6040 / 6040 Balance -488 / -488 -8690 / -5898 Medical Nutrition Assessment Dietitian: Malnutrition Criteria Met Start: 07/19/24 14:03 Freq: Status: Active Protocol: Document 07/20/24 09:31 [facility] (Rec: 07/20/24 09:31 SLA [id number]) Nutrition Malnutrition Evidence of Malnutrition Exists Yes Malnutrition (severe): Acute Illness/Injury Evidenced By Suboptimal Energy Intake ( Severe),Weight Loss (Severe) Intake Problem Inadequate Oral Intake Etiology related to difficulty chewing/ swallowing and decreased appetite Signs/Symptoms as evidenced by taking less than 50% of meals and need for mechanically altered food Status Active Problem Clinical Problem Acute Disease or Injury Related Malnutrition Etiology Severe protein-calorie malnutrition in the context of acute on chronic disease related to inadequate oral intake and difficulty chewing/ swallowing Signs/Symptoms as evidenced by ~5% unintentional weight loss x 1 week, taking less than 50% meals since admit, PO meeting less than 50% estimated nutrition needs and need for pureed-consistency food Status Active Problem Recommendation Dietitian Recommendations/Changes When medically able, rec KENDY to Cardiac/Sodium Restricted diet - consistency per MOBILITY SPECIALIST When medically able, 120mL PO Nepro with meals. When medically able, rec fortified pudding w/ lunch and dinner tray. Lab / Micro Data 07/22/24 04:21 07/22/24 04:21 Labs: Laboratory Results - last 24 hr 07/17/24 07:25: Total Protein (PEP) 4.5 L, Globulin 2.2, IgG 223 L, IgA 29 L, I gM 6 L, Immunofixation Screen Comment H, Albumin (CARLA) 2.3 L, Albumin/Globulin (CARLA) 1.1, Joqaz-2-Ribebwzyq CARLA 0.3, Aetdk-9-Uzjhlnrll CARLA 0.9, Beta-Globulins (CARLA) 0.5 L, Gamma Globulins (CARLA) 0.5, CARLA M-Shar 0.3 H, CARLA Comments Comment 07/22/24 04:21: WBC 11.1 H, RBC 2.45 L, Hgb 8.8 L, Hct 28.4 L, MCV 115.9 H, MCH 35.9 H, MCHC 31.0 L, RDW Std Deviation 73.8 H, RDW Coeff of Justine 17.6 H, Plt Count 176, MPV 9.2, Immature Gran % (Auto) 0.800, Neut % (Auto) 82.7 H, Lymph % (Auto) 8.7 L, [place] % (Auto) 7.6, Eos % (Auto) 0.2, Baso % (Auto) 0.0, Absolute Neuts (auto) 9.2 H, Absolute Lymphs (auto) 0.97, Nucleated RBC % 0, Differential Comment SCANNED, Polychromasia RARE, Anisocytosis 2+, Sodium 141, Potassium 4.4, Chloride 106, Carbon Dioxide 26.0, Anion Gap 9, BUN 37 H, Creatinine 3.22 H, Estim Creat Clear Calc 23.71, Est GFR (MDRD) Af Amer 25 L, Est GFR (MDRD) Non-Af 21 L, BUN/Creatinine Ratio 11.5, Glucose 91, Calcium 11.3 H, Magnesium 2.0 Micro: Microbiology 07/13/24 15:20 Blood Culture (Wb) - Anticubital Left Blood Culture - Final No growth in 5 days. 07/18/24 06:30 Stool Stool Occult Blood (JEROME) - Final Occult Blood Positive 07/14/24 05:08 Sputum, Expectorated/Coughed Gram Stain - Final 07/14/24 05:08 Sputum, Expectorated/Coughed Respiratory Culture - Final 07/14/24 09:20 Mucosa - Nose Coronavirus COVID-19 PCR - Final 07/14/24 04:29 Urine, Random Legionella Antigen - Final 07/14/24 04:29 Urine, Random Streptococcus pneumoniae Antigen (M - Final 07/13/24 16:35 Mucosa - Nasopharyngeal Respiratory Panel (PCR) - Final 07/13/24 21:54 Nasal Secretion SARS-CoV-2 Antigen (Rapid) - Final Physical Exam Narrative General: Alert, Oriented x3, Cooperative, No apparent distress HEENT: Atraumatic, PERRLA, EOMI, Normocephalic Oral: Moist Mucosa Neck: Supple, No JVD Lungs: Diminished, Normal air movement, No rhonchi, No wheeze, No rales Cardiovascular: Regular rate, Regular Rhythm, Normal S1, Normal S2, No murmurs Abdomen: Soft, Non Tender, Non-Distended, No Hepato-splenomegaly Extremities: Trace edema, Capillary Refill Less than 3 Seconds Skin: No rashes, No breakdown, areas of chronic ecchymosis Musculoskeletal: No Tenderness to Palpation of Joints or Extremities Neurological: No focal neurological deficits, Motor Exam 5/5 strength throughout, Sensory exam intact to light touch and pain Psych/Mental Status: Flat Assessment & Plan Assessment/Plan (1) Acute hypoxemic respiratory failure: (2) Pneumonia of both lower lobes: (3) Hypokalemia: (4) Left leg cellulitis: PLAN: Plan Acute hypoxic respiratory failure secondary to volume overload/right lower lobe pneumonia: Chest x-ray and chest CTA individually reviewed. No evidence of pulmonary embolism. Bibasilar infiltrates present. Has thoracic and lumbar fusion with hardware. Continue vancomycin and Zosyn and azithromycin to cover MRSA, GNR including Pseudomonas and atypicals. COVID-19 PCR negative. Urinary antigens are negative. Respiratory panel negative. Gram stain pending. Continue incentive spirometry and PEP and Mucinex. Patient on BiPAP/NIPPV 07/15: Patient still short of breath and required 6 L of oxygen 07/16: On 5 L of oxygen. Breathing and respiratory status are gradually getting better. Sputum culture did not had enough specimen Therefore canceled. Will de-escalate the antibiotics patient had about 4 days of IV antibiotic therefore we will discontinue vancomycin. ID consulted. 07/17: Patient was seen by ID and recommended to continue cefepime and Zithromax. Zithromax was discontinued yesterday because of interaction with Seroquel which patient required for confusion/not able to tolerate BiPAP. Will change to doxycycline. Repeat chest x-ray was initially reviewed official report pending. Suboptimal x-ray, decreased volume especially on the left, rotated x-ray. Chronic scarring with bibasilar infiltrates. Thoracic and lumbar hardware. [facility] consult 07/18/2024: Cefepime was discontinued and currently on doxycycline and Unasyn 07/21/2024: Antibiotics stopped by ID on 07/20/2024 Left lower extremity cellulitis: Left leg is very tender. Covered with antibiotics as mentioned above. Venous duplex is ordered. Patient is on anticoagulant. Wound nurse to follow 07/15: Left leg feels better and patient can lift although weak, strength 4/5 at both knee joints 07/18/2024: Leg feels better today continue with antibiotics 07/22/2024: Antibiotics completed Acute encephalopathy with change in mental status, increased confusion, distraction, sometimes, disorientation, increased reaction time to respond and echolalia: Orientation cues. CT head was done which does not show acute abnormality but partial opacification of left maxillary sinus. Neurology consult. Resolved Hypokalemia -P.o. potassium given emergency department Serum magnesium 1.6 phosphorus 2.7. Patient is on hemodialysis. Potassium 3.4. 07/15: Mild hypokalemia but patient on hemodialysis. 07/16: K3.4. Acceptable K level as patient is on hemodialysis. End-stage renal disease -HD dependent -Continue home sevelamer -Consult nephrology -Patient is not compliant with diet -Patient does appear to be somewhat volume overloaded on exam 07/21/2024: Continue with dialysis appreciate nephrology's assistance managing electrolytes, serum protein electrophoresis ordered by nephrology Acute on chronic macrocytic anemia, multifactorial including CKD and chronic disease -H&H 8.4/26.5 decreased from 9.7/30.5%. Monitor CBC. 07/15: H&H 8.3/26%. Immature granulocytes 1.2%. Platelet count 104,000. Anemia workup ordered. 07/16: H&H 8.8/28%. Platelet count 120,000. Reticulocyte count 1.53 elevated. Immature reticulocyte fraction elevated therefore bone marrow active. Iron saturation and ferritin high. Overall suggestive of anemia of chronic disease History of thoracic compression fractures -Status post T7 laminectomy and decompression -Biopsies were taken at bedtime -Continue as needed pain medication once verified 07/18/2024: Fecal occult positive for blood, hemoglobin has actually been going up so we will monitor at this time. Will hold Eliquis 07/19/2024: Hemoglobin went from 8.5 up to 9.2 and today is down to 8.7 we will recheck tomorrow morning, continue to hold anticoagulation 07/20/2024: Hemoglobin is at 8.5 so it is stable however given the fact that he is to be on anticoagulation for his A-fib and flutter we will consult GI and placed on a clear liquid diet 07/21/2024: Probable EGD tomorrow 07/22/2024: Plan for EGD today hemoglobin is low but stable will restart Eliquis when able. 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 -Hold Eliquis History of A-fib/flutter -Patient is on no rate controlling medications as his fib/flutter is not conjoined with RVR -Hold Eliquis secondary to possible GI bleed pending evaluation Hypertension -Medications have not yet been verified for hypertension -Hold all antihypertensives -Blood pressures are currently on the low side -As needed hydralazine for systolic blood pressure greater than 160 Aortic aneurysm -Stable ascending aortic aneurysm noted on most recent CTA -4.4 cm -Control blood pressure -Recommend outpatient follow-up FELA -Will transition nocturnal CPAP once off BiPAP COPD -Patient had irreversibly moderately severe mixed ventilatory defect with symmetric reduction in diffusing capacity noted on his PFTs from March 2023 -FEV1 was 54% predicted -Nebulizers as above -Recommend outpatient follow-up with pulmonary medicine after discharge Depression/suicidal ideation/chronic back pain -Continue home bupropion ? CT scan from [facility] reviewed outpatient follow-up recommended -Case management consulted -Patient has no current plan DVT: SCDs Charges/Coding Visit Charges Inpatient E&M: 52470 Subs Hosp L2
--- NOTE | 2024-07-22 14:25 | CASEMGMT ---
Addendum entered by Olga Carrion 07/22/24 15:10: [facility] has declined as they are out of network with patient's insurance. EBONIE then sent referrals to the 4 facilities left on the list that have on site dialysis. [facility], [facility], [facility], and [facility]. Await responses. Olga THOMAS Original Note: This EBONIE and EBONIE Lucero spoke with patient and Yvonne letting them know [facility] said they do not have any openings. EBONIE had 5 facilities written down that are on the list and have on site dialysis. Yvonne said to make referrals to any of the facilities. EBONIE sent a referral to [facility]. Olga THOMAS
[2024-07-22] MEDS: Morphine 2 MG/ML Syringe IV (15:26)
--- NOTE | 2024-07-22 15:45 | EGD_PTH ---
PATIENT: ZIYAD BAER Jr. LOC: [facility] U#:[id number] AGE/SX: 69/M ROOM: [facility] RE07/13/[address]: Dr. Gerardo Lynn DO : 1955 BED: 1 DIS: 07/28/2024 SPEC #: [id number] RECD: 07/23/24 09:17 STATUS: CHAITANYA REQ #: [id number] TERESA: 07/22/24 15:[address]: Cecilio Gamboa DEPT: SURGICAL PATHOLOGY RECD BY: Rachael Guerrero ENTERED: 07/23/24 10:14 SP TYPE: EGD BIOPSY OTHR DR: MD Dr. Jaspreet Benítez MD Dr. Andrew Fredericks, MD Archana Hinduja, MD Dr. Allison Jordan, DO Dr. Adan Mora, MD Dr. Alicia Zha, MD Dr. Chitra Ganta, MD Dr. Derek Brown, DO Dr. Deepak Gulati, MD Dr. David P Myers, MD Dr. Edward Matheis, MD Dr. Gautam Baskaran, MD Dr. Yordanos Habtegebriel, MD Dr. Hemant Dand, MD Dr. Hera Kamdar, MD Dr. Jan Bittar, MD Dr. James Burke, MD Dr. Jayaprakas Dasari, MD Dr. Jorge Morales, MD Dr. Jose Ochoa, MD Dr. Kimber Foust, MD Dr. Kathryn Lee, DO Dr. Lamia Aljundi, MD Margaret Beigel, MD Dr. Matthew Gusler, MD Dr. Maryam Mian, MD Dr. Mohamed Ridha, MD Dr. Mhd Ezzat Zaghlouleh, MD Dr. Nicholas F Kotsonis MD Dr. Keith Joesph, MD Dr. Reese Leila, MD Dr. Indio Irukulla, MD Dr. Peter Lazaro, MD Dr. Rami Perales, MD Dr. Andre Wenceslao, MD Dr. Darryl Kendall, MD Dr. Sujoy Mccabe, MD Dr. Ori Greyson, MD Dr. Evan Corky, MD Dr. Edith Terence, MD Dr. Ziyad Gabe, MD Yousef Hannawi, MD Tissues: Esophagus, NOS Procedures: Special Stain Group I Surgery Specimen Level IV Alcian Blue/PAS (control) Comments: @ Ordering doctor for SUIV edited from to @ by CHERIE at 07/23/24 1319 @ Submitting doctor edited from to @ by CHERIE at 07/23/24 1319 HEADER OPERATION: EGD with biopsy PRE-OP DIAGNOSIS: Dysphagia TISSUE SUBMITTED: Distal esophagus biopsy MICROSCOPIC DIAGNOSIS Distal esophagus, biopsy: Gastroesophageal junctional mucosa with mild chronic inflammation. 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 Focal acute inflammation. No evidence of dysplasia. See comment. Casey 07/24/2024 COMMENT Alcian blue/PAS stain with matched control is used in the evaluation of the specimen. Immunohistochemistry ([id number]) for P53 and Ki-67 will be performed and results will be reported separately. MICROSCOPIC DESCRIPTION Slides are reviewed. GROSS DESCRIPTION Received in fixative is one container labeled with the patient's name and designated Distal esophagus biopsy. The specimen consists of multiple irregular fragments of light lucas soft tissue that in aggregate measure 0.8 x 0.3 x 0.1 cm. The specimen is totally submitted in one cassette. 07/23/2024 TC:3 [facility]:[id number]
--- NOTE | 2024-07-22 15:47 | PN.RENAL_ITS ---
Subjective Subjective no new complaints Objective Data Objective Data Vital Signs: Vital Signs Temp Pulse Resp BP Pulse Ox O2 Del Method O2 Flow Rate 98.3 F 71 17 133/88 H 99 Nasal Cannula 4 07/22/24 15:24 07/22/24 15:24 07/22/24 15:24 07/22/24 15:24 07/22/24 15:24 07/22/24 15:24 07/22/24 15:24 FiO2 30 07/22/24 10:00 Oxygen Flow Rate (L/min) 4 Oxygen Delivery Method Nasal Cannula Weight: 86.63 kg Body Mass Index (BMI) 26.6 Intake & Output: Intake and Output for Last 24 Hours 07/20/24 07/21/24 07/22/24 23:59 23:59 23:59 Intake Total 112 / 112 50 / 150 100 / 100 Output Total 600 / 600 6040 / 6040 0 / 0 Balance -488 / -488 -5990 / -5890 100 / 100 Medical Nutrition Assessment Dietitian: Malnutrition Criteria Met Start: 07/19/24 14:03 Freq: Status: Active Protocol: Document 07/20/24 09:31 RYANN (Rec: 07/20/24 09:31 SLA [id number]) Nutrition Malnutrition Evidence of Malnutrition Exists Yes Malnutrition (severe): Acute Illness/Injury Evidenced By Suboptimal Energy Intake ( Severe),Weight Loss (Severe) Intake Problem Inadequate Oral Intake Etiology related to difficulty chewing/ swallowing and decreased appetite Signs/Symptoms as evidenced by taking less than 50% of meals and need for mechanically altered food Status Active Problem Clinical Problem Acute Disease or Injury Related Malnutrition Etiology Severe protein-calorie malnutrition in the context of acute on chronic disease related to inadequate oral intake and difficulty chewing/ swallowing Signs/Symptoms as evidenced by ~5% unintentional weight loss x 1 week, taking less than 50% meals since admit, PO meeting less than 50% estimated nutrition needs and need for pureed-consistency food Status Active Problem Recommendation Dietitian Recommendations/Changes When medically able, rec KENDY to Cardiac/Sodium Restricted diet - consistency per TWO NEEDLE MACHINE OPERATOR When medically able, 120mL PO Nepro with meals. When medically able, rec fortified pudding w/ lunch and dinner tray. Lab / Micro Data 07/22/24 04:21 07/22/24 04:21 Labs: Laboratory Results - last 24 hr 07/22/24 04:21: WBC 11.1 H, RBC 2.45 L, Hgb 8.8 L, Hct 28.4 L, MCV 115.9 H, MCH 35.9 H, MCHC 31.0 L, RDW Std Deviation 73.8 H, RDW Coeff of Justine 17.6 H, Plt Count 176, MPV 9.2, Immature Gran % (Auto) 0.800, Neut % (Auto) 82.7 H, Lymph % (Auto) 8.7 L, [place] % (Auto) 7.6, Eos % (Auto) 0.2, Baso % (Auto) 0.0, Absolute Neuts (auto) 9.2 H, Absolute Lymphs (auto) 0.97, Nucleated RBC % 0, Differential Comment SCANNED, Polychromasia RARE, Anisocytosis 2+, Sodium 141, Potassium 4.4, Chloride 106, Carbon Dioxide 26.0, Anion Gap 9, BUN 37 H, Creatinine 3.22 H, Estim Creat Clear Calc 23.71, Est GFR (MDRD) Af Amer 25 L, Est GFR (MDRD) Non-Af 21 L, BUN/Creatinine Ratio 11.5, Glucose 91, Calcium 11.3 H, Magnesium 2.0 Micro: Microbiology 07/13/24 15:20 Blood Culture (Wb) - Anticubital Left Blood Culture - Final No growth in 5 days. 07/18/24 06:30 Stool Stool Occult Blood (JEROME) - Final Occult Blood Positive 07/14/24 05:08 Sputum, Expectorated/Coughed Gram Stain - Final 07/14/24 05:08 Sputum, Expectorated/Coughed Respiratory Culture - Final 07/14/24 09:20 Mucosa - Nose Coronavirus COVID-19 PCR - Final 07/14/24 04:29 Urine, Random Legionella Antigen - Final 07/14/24 04:29 Urine, Random Streptococcus pneumoniae Antigen (M - Final 07/13/24 16:35 Mucosa - Nasopharyngeal Respiratory Panel (PCR) - Final 07/13/24 21:54 Nasal Secretion SARS-CoV-2 Antigen (Rapid) - Final Physical Exam Narrative Alert, awake, oriented x 3 no obvious distress s1s2 no murmurs lungs clear abdomen soft, nontender Trace nonpitting edema bilateral lower legs. Tunneled dialysis catheter dressing clean, dry and intact Assessment & Plan Assessment/Plan (1) ESRD (end stage renal disease): PLAN: - ESRD secondary to biopsy-proven ATN with no noted recovery. Currently on hemodialysis Saturday, , Saturday schedule. -Left lower extremity cellulitis; IV antibiotics. Venous Duplex no evidence of DVT -Pneumonia; on IV antibiotics. ID note reviewed. finished today -History of hypertension; blood pressures are low side but stable. He is not on any antihypertensives now. - CT chest report reviewed reviewed. Appears to have severe osteopenia, loss of bone mass. positive SPEP. sent serum kappa and lambda light chain assay
[2024-07-22] MEDS: 0.9% Normal Saline (500mL Bag) 500 ML 15 ML IV (16:14)
--- NOTE | 2024-07-22 16:48 | PCM.PRE.AN2 ---
ASA Classification* ASA Classification ASA Classification: 4 Assessment & Plan Anesthesia* Anesthesia Assessment Anesthesia Assessment: Discussed sedation and/or anesthesia options, risks, benefits, and alternatives with patient/parents/legal guardian/POA. Questions invited. The patient/parents/legal guardian/POA seems to understand and agrees to proceed with anesthesia plan. Reviewed the physical assessment, medical history, allergy history and patient home medications list prior to surgery/procedure/anesthetic and documented any changes. Performed airway and anesthesia risk assessments. Anesthesia Type Anesthesia Type: MAC History Source History Obtained from:: Patient and Chart Anesthesia Focused Assessment* Temperature: 98.3 F Pulse Rate: 71 Blood Pressure: 133/88 Respiratory Rate: 17 Pulse Ox: 99 Oxygen Delivery Method: Nasal Cannula (Patient is only on 3 L at home.) Fraction of Inspired Oxygen (FIO2): 30 Airway Assessment Mouth opens: >3 cm Mallampati Score: III Teeth Condition: Intact Neck Range of motion (ROM): Limited ROM Focused Labs Anesthesia Preop lab: CBC WBC 11.1 K/mm3 (4.4-11.0) H 07/22/24 04:21 RBC 2.45 M/mm3 (4.6-6.2) L 07/22/24 04:21 Hgb 8.8 g/dL (13.0-16.5) L 07/22/24 04:21 Hct 28.4 % (40-54) L 07/22/24 04:21 Plt Count 176 K/mm3 (150-450) 07/22/24 04:21 CHEMISTRY Potassium 4.4 mmol/L (3.5-5.1) 07/22/24 04:21 Sodium 141 mmol/L (136-145) 07/22/24 04:21 Magnesium 2.0 mg/dL (1.6-2.6) 07/22/24 04:21 Phosphorus 2.7 mg/dL (2.5-4.9) 07/17/24 13:37 BUN 37 mg/dL (7-18) H 07/22/24 04:21 Creatinine 3.22 mg/dL (0.70-1.30) H 07/22/24 04:21 Glucose 91 mg/dL (74-106) 07/22/24 04:21 POC Glucose 85 mg/dL (74-106) 07/19/24 05:51 TSH 1.46 uIU/mL (0.358-3.74) 06/19/23 18:40 COAG PT 14.4 SECONDS (11.7-14.9) 03/08/23 10:40 Pre-Assessment Diagnosis/Proposed Procedure Planned Operative Procedure(s): Esophagogastroduodenoscopy Anesthesia History 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 When Was Last Pacemaker Check QUESTION #4 FULL TEXT: You/Your Family Experience fever (hyperthermia) with Anesthesia Last Oral Intake Last Oral intake: Last Oral Intake NPO since 00:00 07/22/24 10:25 Meds taken in AM with sips of No 07/22/24 10:25 water? Meds patient instructed to take am of surgery PONV PONV - bank officer: PONV - bank officer Female HX of Motion Sickness HX of N/V After Surgery Non-Smoker Duration of Surgery greater than 60 minutes Number of Risk Factors PONV Score Height & Weight Height & Weight: Anesthesia: Height & Weight Height 5 ft 11 in 07/22/24 10:55 Weight: 86.63 kg 07/22/24 10:55 Body Mass Index (BMI) 26.6 07/22/24 10:25 Respiratory Assessment Respiratory Assessment - bank officer: Respiratory Tract Infection Hx - bank officer Hx Respiratory Tract Infection No 07/22/24 10:25 STOP Sleep Apnea STOP Sleep Apnea - bank officer: STOP Sleep Apnea - bank officer Hx Hypertension No 07/16/24 16:01 Hx Sleep Apnea No 07/13/24 16:47 CPAP No 03/08/23 15:30 BIPAP Yes 03/08/23 15:30 Do you snore loudly (louder No 07/13/24 16:47 than talking or can be heard Do you often feel tired/ No 07/13/24 16:47 fatigued/ sleepy during daytime? Has anyone observed you stop No 07/13/24 16:47 breathing during sleep? STOP Results Negative 07/13/24 16:47 QUESTION #5 FULL TEXT : Do you snore loudly (louder than talking or can be heard through closed doors)? Tobacco Use History Tobacco Use History - bank officer: Tobacco Use History - bank officer Tobacco Use Smoking Status Former smoker 07/13/24 16:47 Hx Tobacco Use No 07/13/24 16:47 Years Smoking Packs Smoked per Day Smoking Cessation Date was No - quit smoking greater 07/13/24 16:47 within the last 15 years than 15 years ago Hx Smoking Cessation Date 10/28/07 07/13/24 16:47 Hx Smoking Cessation Counseling Hematologic Medial History Hematologic Hx - bank officer: Hematologic Medical Hx - size tester Hx of Blood Transfusion No 07/13/24 16:47 Hx of Transfusion in last 3 No 07/13/24 16:47 Months Date of Last Transfusion (if within last 3 months) Ever experience any problems No 07/13/24 16:47 with transfusion(s)? Specify any problems Hx of Preganancy in last 3 N/A 07/13/24 16:47 Months Nurse Filling Out Transfusion [facility] 07/13/24 16:47 & Questions: Date: 07/13/24 07/13/24 16:47 Time: 17:28 07/13/24 16:47 Patient unable to answer at this time (ie. confused, unrespo /Reproduction History /Reproductive History - bank officer: /Reproductive Hx- bank officer Hx Now No 07/22/24 10:25 Gestational Age (in weeks): EDC: Hx Hx Para Hx Section SAB No 07/22/24 10:25 Active Medications Active Medications: Current Medications Generic Name Dose Route Start Last Admin Trade Name Freq PRN Reason Stop Dose Admin Acetaminophen 650 mg 07/13/24 16:26 07/21/24 08:47 Acetaminophen 325 Mg Tablet PO 650 mg Q6H PRN PRN Administration Pain 1-10 Or Fever >100.7 Albuterol Sulfate 2.5 mg 07/13/24 19:35 07/20/24 15:36 Albuterol 2.5 Mg/3 Ml Vial.Neb. INHALATION 2.5 mg Q2H PRN PRN Administration SOB &/OR WHEEZING Albuterol/Ipratropium 3 ml 07/13/24 19:45 07/22/24 12:47 Ipratropium/Albuterol Sulfate 3 Ml Ampul.Neb INHALATION 3 ml Q6HWA.RT VERONICA Administration Baclofen 10 mg 07/13/24 19:21 07/21/24 08:47 Baclofen 10 Mg Tablet PO 10 mg TID PRN Administration muscle spasm Budesonide 0.5 mg 07/13/24 20:00 07/22/24 07:19 Budesonide Respules 0.5 Mg/2 Ml Ampul.Neb. INHALATION 0.5 mg Q12H.RT VERONICA Administration Bupropion HCl 75 mg 07/14/24 10:00 07/21/24 13:24 Bupropion 75 Mg Tablet PO 75 mg DAILY VERONICA Administration Calamine/Phenol 1 applic 07/18/24 10:00 07/22/24 10:57 Menthol/Lanolin/Calamine/Znox 113 Gm Tube TOPICAL 1 applic BID VERONICA Administration Protocol Colestipol HCl 1 gm 07/14/24 10:00 07/21/24 13:41 Colestipol 1 Gm Tablet PO Not Given DAILY VERONICA Hemodialysis Solution 6 bag 07/18/24 06:00 07/21/24 13:25 Pureflow B 2k Dialysis Soln 1 Bag PF 6 bag UD VERONICA Administration Protocol Heparin Sodium (Porcine) 1,000 - 3,000 units 07/18/24 08:19 07/18/24 09:59 Heparin 10,000 Units/10 Ml Vial IV 3,000 units X1 PRN Administration HD catheter closing Hydralazine HCl 10 mg 07/13/24 19:41 Hydralazine 20 Mg/Ml Vial IV Q6H PRN PRN SBP>160 Protocol Sodium Chloride 500 mls @ 15 mls/hr 07/22/24 16:15 07/22/24 16:14 IV 15 mls/hr .[id number] VERONICA Administration Lactulose 10 gm 07/17/24 22:00 07/17/24 22:04 Lactulose 20 Gm/30 Ml Udc PO 10 gm BID VERONICA Administration Ondansetron HCl 4 mg 07/13/24 16:26 07/18/24 21:05 Ondansetron 4 Mg/2 Ml Vial IV 4 mg Q8H PRN PRN Administration NAUSEA/VOMITING Oxycodone HCl 5 mg 07/13/24 16:26 07/22/24 10:55 Oxycodone 5 Mg Tablet PO 5 mg Q4H PRN PRN Administration Pain Score 4-10 Quetiapine Fumarate 25 mg 07/17/24 13:32 Quetiapine 25 Mg Tablet PO QHS PRN AGITATION Protocol Senna/Docusate Sodium 2 tablet 07/13/24 16:26 07/14/24 09:16 Senna/Docusate Sodium 1 Tablet PO 2 tablet BID PRN Administration Constipation Sevelamer Carbonate 800 mg 07/13/24 22:00 07/22/24 11:04 Sevelamer Carbonate 800 Mg Tablet PO Not Given 0800,1200,1700,2200 VERONICA Sodium Chloride 10 - 40 ml 07/13/24 17:31 07/21/24 09:00 0.9% Saline Lock 10 Ml Syringe IV 20 ml UD PRN Administration SALINE FLUSH Sodium Chloride 1,000 ml 07/18/24 06:00 07/21/24 08:03 0.9% Normal Saline 1,000 Ml Iv.Soln. OPERA.SITE 1,000 ml X1 VERONICA Administration [facility] Medical History Essential hypertension Atrial flutter Hx of pulmonary embolus Obstructive sleep apnea FELA (obstructive sleep apnea) Hypertension Cancer Psoriasis Home Medications ?Medication ?Instructions ?Recorded ?Last Taken ?Type amlodipine 10 mg tablet 10 mg PO QHS Blood pressure 10/14/19 10/17/20 History escitalopram oxalate 20 mg tablet 20 mg PO DAILY Check with primary 10/14/19 10/22/22 History doctor bupropion HCl 75 mg tablet 75 mg PO DAILY Depression 09/18/22 Unknown History bethanechol chloride 25 mg tablet 25 mg PO TID 30 days #90 tabs 01/07/23 Unknown Rx albuterol sulfate 90 mcg/actuation 2 puff inhalation Q6H sob 01/14/23 Unknown History aerosol inhaler acetaminophen 325 mg tablet 650 mg (2 x 325 mg) PO Q6H PRN PRN 01/17/23 Unknown Rx Pain 1-10 Or Fever>100.7 #0 tabs ferrous sulfate 325 mg (65 mg 325 mg PO DAILY@1200 Check with 03/08/23 Unknown History iron) tablet (FeroSul) primary doctor fluticasone propionate 50 2 spray NASAL DAILY Check with 03/08/23 Unknown History mcg/actuation nasal primary doctor spray,suspension lidocaine 5 % topical patch 1 patch topical 0800 Check with 03/08/23 Unknown History primary doctor magnesium chloride 64 mg 250 mg PO DAILY Check with primary 03/08/23 Unknown History (magnesium chloride) doctor tablet,delayed release (Mag 64) vit A 300 mcg-C 200 mg-E 27 1 cap PO DAILYCM Check with 03/08/23 Unknown History mg-lutein 2 mg and minerals tablet primary doctor (Healthy Eyes) apixaban 5 mg tablet (Eliquis) 5 mg PO BID 30 days #60 tabs 03/13/23 Unknown Rx sennosides 8.6 mg-docusate sodium 2 tab PO BID #0 tabs 03/13/23 Unknown Rx 50 mg tablet (Stool Softener-Stimulant Laxative) cholecalciferol (vitamin D3) 1,250 1,250 mcg PO QWEEK 06/19/23 Unknown History mcg (50,000 unit) capsule colestipol 1 gram tablet 1 g PO DAILY 06/19/23 Unknown History ketoconazole 2 % topical cream 1 applic topical DAILY 06/19/23 Unknown History lisinopril 40 mg tablet 40 mg PO QHS 06/19/23 Unknown History teriparatide 20 mcg/dose (600 20 mcg subcut DAILY 06/19/23 Unknown History mcg/2.4 mL) subcutaneous pen injector (Forteo) baclofen 10 mg tablet 10 mg PO TID PRN muscle spasm 07/26/23 Unknown History carvedilol 25 mg tablet 25 mg PO BID Check with primary 07/26/23 Unknown History doctor cyclobenzaprine 5 mg tablet 5 mg PO TID PRN muscle spasm 07/26/23 Unknown History furosemide 20 mg tablet 20 mg PO DAILY PRN edema 07/26/23 Unknown History potassium chloride 10 mEq 10 meq PO DAILY PRN WITH LASIX 07/26/23 Unknown History tablet,extended release sildenafil 100 mg tablet 100 mg PO DAILY PRN SEE PCP 07/26/23 Unknown History cefuroxime axetil 500 mg tablet 500 mg PO BID #20 tabs 06/01/24 Unknown Rx metronidazole 500 mg tablet 500 mg PO BID #20 tabs 06/01/24 Unknown Rx ondansetron 8 mg disintegrating 8 mg PO Q8H PRN nausea and 06/01/24 Unknown Rx tablet vomiting #20 tabs budesonide-formoterol HFA 160 2 puff inhalation BID 07/13/24 Unknown History mcg-4.5 mcg/actuation aerosol inhaler gabapentin 300 mg capsule 300 mg PO DAILY 07/13/24 Unknown History losartan 25 mg tablet 25 mg PO DAILY 07/13/24 Unknown History oxycodone-acetaminophen 5 mg-325 1 tab PO Q8H PRN PRN pain 07/13/24 Unknown History mg tablet sevelamer carbonate 800 mg tablet 800 mg PO 4X/DAY 07/13/24 Unknown History tizanidine 2 mg tablet 2 mg PO TID PRN 07/13/24 Unknown History vitamin B complex-vitamin C-folic 1 tab PO DAILY 07/13/24 Unknown History acid 0.8 mg tablet (Shannon-Dia) Allergy/AdvReac Type Severity Reaction Status Date / Time lorazepam Allergy Other Verified 07/13/24 10:43 Penicillins Allergy Itching Verified 07/13/24 10:43 poison ever extract Allergy Itching Verified 07/13/24 10:43 Family History Mother CVA (cerebral vascular accident) Father CAD (coronary artery disease) Hypertension Cancer Prostate Other Brain aneurysm Heart disease Prostate CA Surgical History Status post laminectomy History of carpal tunnel surgery History of herniorrhaphy Hx of cholecystectomy Hx of appendectomy Social History household members: spouse Smoking Status: Former smoker alcohol intake: current alcohol intake frequency: 3 or more drinks per day substance use type: does not use Review of Systems (Anesthesia) ROS Narrative System reviewed and no additional complaints, except as documented.
--- NOTE | 2024-07-22 18:21 | OP.CCLET_ITS ---
07/22/2024 Arleen Hwang [address] [place] [address] Re : Upper GI endoscopy procedure for [facility] Dear Dr. Hwang This procedure was performed on Monday, July 22, 2024. My impressions and recommendations are as follows: Impressions : - LA Grade C erosive esophagitis with no bleeding. Biopsied. - Acute gastritis. - No gross lesions in the duodenal bulb. Recommendations : - Return patient to hospital minor for ongoing care. - Advance diet as tolerated today. - Continue present medications. - Await pathology results. - Use Protonix (pantoprazole) 40 mg PO BID. My findings are described in the full procedure note, which is enclosed. If I can be of further assistance, please feel free to contact me at . Sincerely, Cecilio Gamboa, 07/22/2024 6:20:37 PM This report has been signed electronically.
--- NOTE | 2024-07-22 18:21 | OP.EGD_ITS ---
Patient Name: Luan Santa Procedure Date: 07/22/2024 5:58 PM Date of : 1955 Age: 69 Procedure: Upper GI endoscopy Indications: Dysphagia Providers: Cecilio Gamboa DO Medicines: Monitored Anesthesia Care Patient Profile: This is a 69 year old male. Refer to note in patient chart for documentation of history and physical. Patient has symptoms of acute dysphagia and dysphagia with both liquids and solids. Complications: No immediate complications. Procedure: Pre-Anesthesia Assessment: - Prior to the procedure, a History and Physical was performed, and patient medications and allergies were reviewed. The patient is competent. The risks and benefits of the procedure and the sedation options and risks were discussed with the patient. All questions were answered and informed consent was obtained. Patient identification and proposed procedure were verified by the physician in the pre-procedure area. Mental Status Examination: alert and oriented. Airway Examination: normal oropharyngeal airway and neck mobility. Respiratory Examination: clear to auscultation. CV Examination: normal. Prophylactic Antibiotics: The patient does not require prophylactic antibiotics. Prior Anticoagulants: The patient has taken no anticoagulant or antiplatelet agents except for NSAID medication. ASA Grade Assessment: III - A patient with severe systemic disease. After reviewing the risks and benefits, the patient was deemed in satisfactory condition to undergo the procedure. The anesthesia plan was to use monitored anesthesia care (MAC). Immediately prior to administration of medications, the patient was re-assessed for adequacy to receive sedatives. The heart rate, respiratory rate, oxygen saturations, blood pressure, adequacy of pulmonary ventilation, and response to care were monitored throughout the procedure. The physical status of the patient was re-assessed after the procedure. After obtaining informed consent, the endoscope was passed under direct vision. Throughout the procedure, the patient's blood pressure, pulse, and oxygen saturations were monitored continuously. The gastroscope was introduced through the mouth, and advanced to the second part of duodenum. The upper GI endoscopy was accomplished without difficulty. The patient tolerated the procedure well. Scope In: 6:13:00 PM Scope Out: 6:15:03 PM Total Procedure Duration Time 0 hours 2 minutes 3 seconds Findings: LA Grade C (one or more mucosal breaks continuous between tops of 2 or more mucosal folds, less than 75% circumference) esophagitis with no bleeding was found 30 to 42 cm from the incisors. Biopsies were taken with a cold forceps for histology. Verification of patient identification for the specimen was done. Estimated blood loss was minimal. Localized mild inflammation characterized by congestion (edema) and erythema was found in the entire examined stomach. No gross lesions were noted in the duodenal bulb. Impression: - LA Grade C erosive esophagitis with no bleeding. Biopsied. - Acute gastritis. - No gross lesions in the duodenal bulb. Recommendation: - Return patient to hospital minor for ongoing care. - Advance diet as tolerated today. - Continue present medications. - Await pathology results. - Use Protonix (pantoprazole) 40 mg PO BID. Procedure Code(s): --- Professional --- 58089, Esophagogastroduodenoscopy, flexible, transoral; with biopsy, single or multiple CPT copyright 2021 [employer]. All rights reserved. The codes documented in this report are preliminary and upon animal caretaker supervisor review may be revised to meet current compliance requirements. Cecilio Gamboa DO 07/22/2024 6:20:37 PM This report has been signed electronically. Number of Addenda: 0 Note Initiated On: 07/22/2024 5:58 PM
--- NOTE | 2024-07-22 18:25 | PCM.POST.ANE ---
Anesthesia: Postop Eval I Current Vital Signs Temperature: 97 F Pulse Rate: 76 Blood Pressure: 125/77 Respiratory Rate: 16 Pulse Ox: 97 Oxygen Delivery Method: Nasal Cannula Oxygen Flow Rate (L/min): 2 Assessment Airway patent: Yes Spontaneous unlabored respirations: Yes Mental status: Awake and Calm nausea: No Vomiting: No Anesthesia Complication: No Fluid Hydration Crystalloid volume administer (ml): 200 Total IV fluid infused: 200 Progress Note Anesthesia document: Postop Eval 1 completed: Yes
--- NOTE | 2024-07-22 19:27 | PCM.POSTANE2 ---
Anesthesia Postop Eval I Sum Postop Eval Completion status Anesthesia document: Postop Eval 1 completed: Yes Anesthesia Postop Eval I Summary Anesthesia Postop Eval I Summary: Anesthesia Postop Eval I: Assessment Summary Airway patent Yes 07/22/24 18:26 Spontaneous unlabored Yes 07/22/24 18:26 respirations Mental status Awake,Calm 07/22/24 18:26 nausea No 07/22/24 18:26 Vomiting No 07/22/24 18:26 Anesthesia Postop Eval I: Fluid Summary Crystalloid volume administer 200 07/22/24 18:26 (ml) Colloids volume administered ( ml) Blood Product volume administered (ml) Total IV fluid infused 200 07/22/24 18:26 Anesthesia Postop Eval I: Summary Notes Anesthesia Complication No 07/22/24 18:26 Anesthesia Complication Comment: Post-operative progress note Anesthesia: Postop Eval II Evaluation Mental status: Awake and Calm Pain Level: 2 nausea: No Vomiting: No Progress Note Post-operative progress note: Patient has chronic back pain. Fairly comfortable as long as he is not moving. All pain complaints are related to his back. Complications Anesthesia Complication: No
[2024-07-22] MEDS: buPROPion 75 MG Tablet PO (20:18)
[2024-07-22] MEDS: 0.9% Saline Lock 10 ML Syringe IV (20:31)
[2024-07-23] VITALS (24 sets, daily range): BP systolic 120–197; BP diastolic 70–97; PULSE 63–95; RESP 12–28; TEMP 36.4–36.7; O2SAT 90–100; BMI 26.6; BMI 26.1
[2024-07-23] MEDS: Ipratropium/Albuterol Sulfate 3 ML AMPUL.NEB INHALATION ×3 (06:57→19:28)
[2024-07-23] MEDS: Budesonide Respules 0.5 MG/2 ML AMPUL.NEB. INHALATION ×2 (06:57→19:28)
[2024-07-23 07:00] LABS: Absolute Lymphocyte Count 0.85 X10^3/uL (0.83-4.51); Absolute Neutrophil Count 8.8 X10^3/uL (2.0-7.7); Basophil# 0.02 X10^3/uL; Basophil% 0.2 % (0-1); Eosinophil# 0.03 X10^3/uL; Eosinophils% 0.3 % (0-5); Hematocrit 27.1 % (40-54); Hemoglobin 8.4 g/dL (13.0-16.5); Lymphocyte # 0.85 X10^3/ul (0.83-4.51); Lymphocyte % 7.9 % (19-41); Mean Corpuscular Hgb 36.1 pg (27.0-32.0); Mean Corpuscular Volume 116.3 fL (80-94); Mean Platelet Vol. 9.2 fl (6.2-12.0); Monocyte# 0.89 X10^3/uL; Monocyte% 8.3 % (0-10); NRBC Flagged by Analyzer 0 % (0-5); Neutrophil # 8.79 X10^3/uL (2.7-7.7); Neutrophil % 82.2 % (47-70); POSITIVE MORPHOLOGY YES; Platelet Count 214 K/mm3 (150-450); RBC Distribution Width CV 18.2 % (11.6-14.6); Red Blood Count 2.33 M/mm3 (4.6-6.2); White Blood Count 10.7 K/mm3 (4.4-11.0)
[2024-07-23 07:08] LABS: Differential Indicated SCAN CRITERIA MET
[2024-07-23 07:17] LABS: Anion Gap 9 (5-15); BUN 48 mg/dL (7-18); Calcium,Total 10.8 mg/dL (8.5-10.1); Chloride 106 mmol/L (98-107); Creatinine, Serum 4.37 mg/dL (0.70-1.30); EST Glomerular Filtration Rate 14 mL/min (>60); Est Glom Filt Rate - Afr Amer 18 mL/min (>60); Estimated Creatinine Clearance 17.47 ml/min; Glucose 95 mg/dL (74-106); Potassium 4.6 mmol/L (3.5-5.1); Sodium Level 139 mmol/L (136-145)
--- NOTE | 2024-07-23 09:34 | CASEMGMT ---
[facility] has declined as they are full, [facility], [facility] reviewing referral. SW will talk with patient and his POA Yvonne. Olga Carrion HOME ECONOMICS EXTENSION WORKER MARTHA
[2024-07-23] MEDS: Albuterol 2.5 MG/3 ML VIAL.NEB. INHALATION (09:44)
--- NOTE | 2024-07-23 10:07 | CASEMGMT ---
EBONIE spoke with Yvonne, patient's POA and let her know [facility] accepted patient, [facility] is full, and [facility] are reviewing. Yvonne told EBONIE to go with [facility] as the other two facilities are further away. Yvonne said she spoke to patient yesterday about the issues with finding a place and patient said he is fine with wherever she picks as long as it is not where he was before. EBONIE asked [facility] to please start the pre-cert. Olga Carrion OCCUPATIONAL THERAPY ASSIST MARTHA
--- NOTE | 2024-07-23 10:20 | PCM.PN.REN ---
Subjective Subjective Patient resting quietly in bed, no overnight events. Denies any complaints today. Objective Data Objective Data Vital Signs: Vital Signs Temp Pulse Resp BP Pulse Ox O2 Del Method O2 Flow Rate 97.9 F 82 20 H 143/86 H 99 Nasal Cannula 2 07/23/24 05:24 07/23/24 09:44 07/23/24 09:44 07/23/24 05:24 07/23/24 06:57 07/23/24 06:57 07/23/24 06:57 FiO2 30 07/23/24 02:45 Oxygen Flow Rate (L/min) 2 Oxygen Delivery Method Nasal Cannula Weight: 86.63 kg Body Mass Index (BMI) 26.6 Intake & Output: Intake and Output for Last 24 Hours 07/21/24 07/22/24 07/23/24 23:59 23:59 23:59 Intake Total 50 / 150 163 / 163 120 / 120 Output Total 6040 / 6040 0 / 0 0 / 0 Balance -5990 / -5890 163 / 163 120 / 120 Medical Nutrition Assessment Dietitian: Malnutrition Criteria Met Start: 07/19/24 14:03 Freq: Status: Active Protocol: Document 07/20/24 09:31 [facility] (Rec: 07/20/24 09:31 [facility] [id number]) Nutrition Malnutrition Evidence of Malnutrition Exists Yes Malnutrition (severe): Acute Illness/Injury Evidenced By Suboptimal Energy Intake ( Severe),Weight Loss (Severe) Intake Problem Inadequate Oral Intake Etiology related to difficulty chewing/ swallowing and decreased appetite Signs/Symptoms as evidenced by taking less than 50% of meals and need for mechanically altered food Status Active Problem Clinical Problem Acute Disease or Injury Related Malnutrition Etiology Severe protein-calorie malnutrition in the context of acute on chronic disease related to inadequate oral intake and difficulty chewing/ swallowing Signs/Symptoms as evidenced by ~5% unintentional weight loss x 1 week, taking less than 50% meals since admit, PO meeting less than 50% estimated nutrition needs and need for pureed-consistency food Status Active Problem Recommendation Dietitian Recommendations/Changes When medically able, rec KENDY to Cardiac/Sodium Restricted diet - consistency per C[employer]INDER SET UP OPERATOR When medically able, 120mL PO Nepro with meals. When medically able, rec fortified pudding w/ lunch and dinner tray. Lab / Micro Data 07/23/24 06:13 07/23/24 06:13 Labs: Laboratory Results - last 24 hr 07/23/24 06:13: WBC 10.7, RBC 2.33 L, Hgb 8.4 L, Hct 27.1 L, MCV 116.3 H, MCH 36.1 H, MCHC 31.0 L, RDW Std Deviation 77.0 H, RDW Coeff of Justine 18.2 H, Plt Count 214, MPV 9.2, Immature Gran % (Auto) 1.100 H, Neut % (Auto) 82.2 H, Lymph % (Auto) 7.9 L, [place] % (Auto) 8.3, Eos % (Auto) 0.3, Baso % (Auto) 0.2, Absolute Neuts (auto) 8.8 H, Absolute Lymphs (auto) 0.85, Nucleated RBC % 0, Differential Comment , Sodium 139, Potassium 4.6, Chloride 106, Carbon Dioxide 24.0, Anion Gap 9, BUN 48 H, Creatinine 4.37 H, Estim Creat Clear Calc 17.47, Est GFR (MDRD) Af Amer 18 L, Est GFR (MDRD) Non-Af 14 L, BUN/Creatinine Ratio 11.0, Glucose 95, Calcium 10.8 H Micro: Microbiology 07/13/24 15:20 Blood Culture (Wb) - Anticubital Left Blood Culture - Final No growth in 5 days. 07/18/24 06:30 Stool Stool Occult Blood (JEROME) - Final Occult Blood Positive 07/14/24 05:08 Sputum, Expectorated/Coughed Gram Stain - Final 07/14/24 05:08 Sputum, Expectorated/Coughed Respiratory Culture - Final 07/14/24 09:20 Mucosa - Nose Coronavirus COVID-19 PCR - Final 07/14/24 04:29 Urine, Random Legionella Antigen - Final 07/14/24 04:29 Urine, Random Streptococcus pneumoniae Antigen (M - Final 07/13/24 16:35 Mucosa - Nasopharyngeal Respiratory Panel (PCR) - Final 07/13/24 21:54 Nasal Secretion SARS-CoV-2 Antigen (Rapid) - Final Physical Exam Narrative Alert, awake, oriented x 3 no obvious distress s1s2 no murmurs lungs clear abdomen soft, nontender Trace nonpitting edema bilateral lower legs. Tunneled dialysis catheter dressing clean, dry and intact Assessment & Plan Assessment/Plan (1) ESRD (end stage renal disease): PLAN: - ESRD secondary to biopsy-proven ATN with no noted recovery. Currently on hemodialysis Saturday, , Saturday schedule. To undergo dialysis today and attempt fluid removal as patient/blood pressure tolerates. Patient will have a new lowered to EDW by time of hospital discharge. Will get MYRON with dialysis today -History of hyperphosphatemia had been on Renvela at home. Last phosphorus 2.6. Patient having difficult time swallowing Renvela therefore we will stop oral Renvela. If patient needs binder then we will consider powder packet Renvela. -Left lower extremity cellulitis; IV antibiotics. Venous Duplex no evidence of DVT -Pneumonia; finished antibiotic course -History of hypertension; blood pressures are low side but stable. He is not on any antihypertensives now. - CT chest report reviewed reviewed. Appears to have severe osteopenia, loss of bone mass. positive SPEP. sent serum kappa and lambda light chain assay - EGD showed esophagitis with no bleeding, acute gastritis. Protonix bid -Discharge planning to [facility] with in-house dialysis.
--- NOTE | 2024-07-23 11:18 | CASEMGMT ---
EBONIE sent updates to [facility] and they will start pre-cert. Plan: d/c to [facility] pending insurance approval. Olga Carrion MSW MANAGER RN
--- NOTE | 2024-07-23 11:43 | CASEMGMT ---
EBONIE spoke with patient and his POA Yvonne. Yvonne confirmed she will bring in clothes and patient's cpap machine. EBONIE notified patient of the facility that has accepted him and explained why it is not a local facility. Patient verbalized understanding and thanked EBONIE. EBONIE also notified [facility] that patient will bring his home cpap with him. Plan: d/c to [facility] pending pre-cert. Olga Carrion VOICE STUDIES DIRECTORRyder THOMAS
[2024-07-23] MEDS: 0.9% Normal Saline 1,000 ML IV.SOLN. 1000 ML OPERA.SITE (12:25)
[2024-07-23] MEDS: Epoetin Alfa epbx 10,000 UNIT/ML 20000 UNIT IV (12:25)
[2024-07-23] MEDS: 0.9% Saline Lock 10 ML Syringe IV (12:26)
[2024-07-23] MEDS: Heparin 10,000 UNITS/10 ML Vial IV (12:26)
[2024-07-23] MEDS: PureFlow B 3K Dialysis Soln 1 BAG 6 BAG PF (12:28)
--- NOTE | 2024-07-23 12:51 | PN.HOSP_ITS ---
Subjective Subjective No issues overnight, EGD yesterday demonstrated grade C erosive esophagitis with acute gastritis, no signs of ongoing bleeding Objective Data Objective Data Vital Signs: Vital Signs Temp Pulse Resp BP Pulse Ox O2 Del Method O2 Flow Rate 98.0 F 76 12 126/70 H 90 Bi-pap 4 07/23/24 10:00 07/23/24 12:30 07/23/24 12:30 07/23/24 12:30 07/23/24 12:30 07/23/24 12:30 07/23/24 11:30 FiO2 30 07/23/24 02:45 Oxygen Flow Rate (L/min) 4 Oxygen Delivery Method Bi-pap Weight: 190 lb 15.783 oz Body Mass Index (BMI) 26.6 Intake & Output: Intake and Output for Last 24 Hours 07/22/24 07/23/24 07/24/24 03:59 03:59 03:59 Intake Total 150 / 150 63 / 63 120 / 120 Output Total 6040 / 6040 0 / 0 0 / 0 Balance -5890 / -5890 63 / 63 120 / 120 Medical Nutrition Assessment Dietitian: Malnutrition Criteria Met Start: 07/19/24 14:03 Freq: Status: Active Protocol: Document 07/20/24 09:31 [facility] (Rec: 07/20/24 09:31 [facility] [id number]) Nutrition Malnutrition Evidence of Malnutrition Exists Yes Malnutrition (severe): Acute Illness/Injury Evidenced By Suboptimal Energy Intake ( Severe),Weight Loss (Severe) Intake Problem Inadequate Oral Intake Etiology related to difficulty chewing/ swallowing and decreased appetite Signs/Symptoms as evidenced by taking less than 50% of meals and need for mechanically altered food Status Active Problem Clinical Problem Acute Disease or Injury Related Malnutrition Etiology Severe protein-calorie malnutrition in the context of acute on chronic disease related to inadequate oral intake and difficulty chewing/ swallowing Signs/Symptoms as evidenced by ~5% unintentional weight loss x 1 week, taking less than 50% meals since admit, PO meeting less than 50% estimated nutrition needs and need for pureed-consistency food Status Active Problem Recommendation Dietitian Recommendations/Changes When medically able, rec KENDY to Cardiac/Sodium Restricted diet - consistency per CHIEF MEDICAL TECHNOLOGIST When medically able, 120mL PO Nepro with meals. When medically able, rec fortified pudding w/ lunch and dinner tray. Lab / Micro Data 07/23/24 06:13 07/23/24 06:13 Labs: Laboratory Results - last 24 hr 07/23/24 06:13: WBC 10.7, RBC 2.33 L, Hgb 8.4 L, Hct 27.1 L, MCV 116.3 H, MCH 36.1 H, MCHC 31.0 L, RDW Std Deviation 77.0 H, RDW Coeff of Justine 18.2 H, Plt Count 214, MPV 9.2, Immature Gran % (Auto) 1.100 H, Neut % (Auto) 82.2 H, Lymph % (Auto) 7.9 L, [place] % (Auto) 8.3, Eos % (Auto) 0.3, Baso % (Auto) 0.2, Absolute Neuts (auto) 8.8 H, Absolute Lymphs (auto) 0.85, Nucleated RBC % 0, Differential Comment , Sodium 139, Potassium 4.6, Chloride 106, Carbon Dioxide 24.0, Anion Gap 9, BUN 48 H, Creatinine 4.37 H, Estim Creat Clear Calc 17.47, Est GFR (MDRD) Af Amer 18 L, Est GFR (MDRD) Non-Af 14 L, BUN/Creatinine Ratio 11.0, Glucose 95, Calcium 10.8 H Micro: Microbiology 07/13/24 15:20 Blood Culture (Wb) - Anticubital Left Blood Culture - Final No growth in 5 days. 07/18/24 06:30 Stool Stool Occult Blood (JEROME) - Final Occult Blood Positive 07/14/24 05:08 Sputum, Expectorated/Coughed Gram Stain - Final 07/14/24 05:08 Sputum, Expectorated/Coughed Respiratory Culture - Final 07/14/24 09:20 Mucosa - Nose Coronavirus COVID-19 PCR - Final 07/14/24 04:29 Urine, Random Legionella Antigen - Final 07/14/24 04:29 Urine, Random Streptococcus pneumoniae Antigen (M - Final 07/13/24 16:35 Mucosa - Nasopharyngeal Respiratory Panel (PCR) - Final 07/13/24 21:54 Nasal Secretion SARS-CoV-2 Antigen (Rapid) - Final Physical Exam Narrative General: Alert, Oriented x3, Cooperative, No apparent distress HEENT: Atraumatic, PERRLA, EOMI, Normocephalic Oral: Moist Mucosa Neck: Supple, No JVD Lungs: Diminished, Normal air movement, No rhonchi, No wheeze, No rales Cardiovascular: Regular rate, Regular Rhythm, Normal S1, Normal S2, No murmurs Abdomen: Soft, Non Tender, Non-Distended, No Hepato-splenomegaly Extremities: Trace edema, Capillary Refill Less than 3 Seconds Skin: No rashes, No breakdown, areas of chronic ecchymosis Musculoskeletal: No Tenderness to Palpation of Joints or Extremities Neurological: No focal neurological deficits, Motor Exam 5/5 strength throughout, Sensory exam intact to light touch and pain Psych/Mental Status: Flat Assessment & Plan Assessment/Plan (1) Acute hypoxemic respiratory failure: (2) Pneumonia of both lower lobes: (3) Hypokalemia: (4) Left leg cellulitis: PLAN: Plan Acute hypoxic respiratory failure secondary to volume overload/right lower lobe pneumonia: Chest x-ray and chest CTA individually reviewed. No evidence of pulmonary embolism. Bibasilar infiltrates present. Has thoracic and lumbar fusion with hardware. Continue vancomycin and Zosyn and azithromycin to cover MRSA, GNR including Pseudomonas and atypicals. COVID-19 PCR negative. Urinary antigens are negative. Respiratory panel negative. Gram stain pending. Continue incentive spirometry and PEP and Mucinex. Patient on BiPAP/NIPPV 07/15: Patient still short of breath and required 6 L of oxygen 07/16: On 5 L of oxygen. Breathing and respiratory status are gradually getting better. Sputum culture did not had enough specimen Therefore canceled. Will de-escalate the antibiotics patient had about 4 days of IV antibiotic therefore we will discontinue vancomycin. ID consulted. 07/17: Patient was seen by ID and recommended to continue cefepime and Zithromax. Zithromax was discontinued yesterday because of interaction with Seroquel which patient required for confusion/not able to tolerate BiPAP. Will change to doxycycline. Repeat chest x-ray was initially reviewed official report pending. Suboptimal x-ray, decreased volume especially on the left, rotated x-ray. Chronic scarring with bibasilar infiltrates. Thoracic and lumbar hardware. [facility] consult 07/18/2024: Cefepime was discontinued and currently on doxycycline and Unasyn 07/21/2024: Antibiotics stopped by ID on 07/20/2024 Left lower extremity cellulitis: Left leg is very tender. Covered with antibiotics as mentioned above. Venous duplex is ordered. Patient is on anticoagulant. Wound nurse to follow 07/15: Left leg feels better and patient can lift although weak, strength 4/5 at both knee joints 07/18/2024: Leg feels better today continue with antibiotics 07/22/2024: Antibiotics completed Acute encephalopathy with change in mental status, increased confusion, distraction, sometimes, disorientation, increased reaction time to respond and echolalia: Orientation cues. CT head was done which does not show acute abnormality but partial opacification of left maxillary sinus. Neurology consult. Resolved Hypokalemia -P.o. potassium given emergency department Serum magnesium 1.6 phosphorus 2.7. Patient is on hemodialysis. Potassium 3.4. 07/15: Mild hypokalemia but patient on hemodialysis. 07/16: K3.4. Acceptable K level as patient is on hemodialysis. End-stage renal disease -HD dependent -Continue home sevelamer -Consult nephrology -Patient is not compliant with diet -Patient does appear to be somewhat volume overloaded on exam 07/21/2024: Continue with dialysis appreciate nephrology's assistance managing electrolytes, serum protein electrophoresis ordered by nephrology Acute on chronic macrocytic anemia, multifactorial including CKD and chronic disease -H&H 8.4/26.5 decreased from 9.7/30.5%. Monitor CBC. 07/15: H&H 8.3/26%. Immature granulocytes 1.2%. Platelet count 104,000. Anemia workup ordered. 07/16: H&H 8.8/28%. Platelet count 120,000. Reticulocyte count 1.53 elevated. Immature reticulocyte fraction elevated therefore bone marrow active. Iron saturation and ferritin high. Overall suggestive of anemia of chronic disease History of thoracic compression fractures -Status post T7 laminectomy and decompression -Biopsies were taken at bedtime -Continue as needed pain medication once verified 07/18/2024: Fecal occult positive for blood, hemoglobin has actually been going up so we will monitor at this time. Will hold Eliquis 07/19/2024: Hemoglobin went from 8.5 up to 9.2 and today is down to 8.7 we will recheck tomorrow morning, continue to hold anticoagulation 07/20/2024: Hemoglobin is at 8.5 so it is stable however given the fact that he is to be on anticoagulation for his A-fib and flutter we will consult GI and placed on a clear liquid diet 07/21/2024: Probable EGD tomorrow 07/22/2024: Plan for EGD today hemoglobin is low but stable will restart Eliquis when able. 07/23/2024: Continue with PPI for his esophagitis and gastritis. Hemoglobin is stable. 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 -Hold Eliquis History of A-fib/flutter -Patient is on no rate controlling medications as his fib/flutter is not conjoined with RVR -Hold Eliquis secondary to possible GI bleed pending evaluation Hypertension -Medications have not yet been verified for hypertension -Hold all antihypertensives -Blood pressures are currently on the low side -As needed hydralazine for systolic blood pressure greater than 160 Aortic aneurysm -Stable ascending aortic aneurysm noted on most recent CTA -4.4 cm -Control blood pressure -Recommend outpatient follow-up FELA -Will transition nocturnal CPAP once off BiPAP COPD -Patient had irreversibly moderately severe mixed ventilatory defect with symmetric reduction in diffusing capacity noted on his PFTs from March 2023 -FEV1 was 54% predicted -Nebulizers as above -Recommend outpatient follow-up with pulmonary medicine after discharge Depression/suicidal ideation/chronic back pain -Continue home bupropion ? CT scan from [facility] reviewed outpatient follow-up recommended -Case management consulted -Patient has no current plan DVT: SCDs Charges/Coding Visit Charges Inpatient E&M: 40592 Subs Hosp L2
[2024-07-23 13:13] LABS: Hepatitis B Surface Antigen Non-Reactive (Nonreactive)
[2024-07-23 14:12] LABS: Free Kappa Light Chains Note: mg/L (3.3-19.4); Free Lambda Light Chains 10.9 mg/L (5.7-26.3)
[2024-07-23] MEDS: Pantoprazole Sodium 40 MG Tablet PO ×2 (14:19→20:39)
[2024-07-23] MEDS: Menthol/Lanolin/Calamine/Znox 113 GM Tube 1 APPLIC TOPICAL ×2 (14:19→20:40)
[2024-07-23] MEDS: oxyCODONE 5 MG Tablet PO ×2 (14:20→20:39)
[2024-07-24] VITALS (31 sets, daily range): BP systolic 121–184; BP diastolic 72–126; PULSE 62–87; RESP 12–30; TEMP 36.1–36.5; O2SAT 93–100; BMI 26.9; BMI 27.1
--- NOTE | 2024-07-24 | IMM_PTH ---
PATIENT: ZIYAD BAER Jr. LOC: [facility] U#:[id number] AGE/SX: 69/M ROOM: [facility] RE07/13/[address]: Dr. Gerardo Lynn DO : 1955 BED: 1 DIS: 07/28/2024 SPEC #: [id number] RECD: 07/27/24 10:52 STATUS: SOUT REQ #: [id number] TERESA: 07/24/24 00:[address]: Gerardo Lynn DEPT: IMMUNOHISTOCHEMISTRY RECD BY: Bharathi Zamora ENTERED: 07/27/24 10:52 SP TYPE: IMMUNO OTHR DR: MD Dr. Martin Maciel MD Dr. Chitra Ganta, MD Dr. Derek Brown, DO Dr. David P Myers, MD Dr. Edward Matheis, MD Dr. Gautam Baskaran, MD Dr. Yordanos Habtegebriel, MD Dr. Hemant Dand, MD Dr. Jayaprakas Dasari, MD Dr. Jose Ochoa, MD Dr. Kimber Foust, MD Dr. Kathryn Lee, DO Dr. Lamia Aljundi, MD Dr. Nicholas F Kotsonis, MD Dr. Prakash Chand, MD Dr. Pritam Ghosh, MD Dr. Pavan Irukulla, MD Dr. Robert Leininger, MD Dr. Saad Farooqi, MD Dr. Sujoy Gill, MD Dr. Vikram Anand, MD Dr. William Haden, MD Tissues: B - Bone marrow of iliac crest Procedures: CD138 (add) CD34 (add) CD45 (add) CK8 (add) KAPPA (add) KI-67 (add) LAMBDA (add) Pankeratin (initial) PHYSICIAN [facility] INSTIT[facility] [address] [address] SPECIMEN INFORMATION: Tissue Source: B- Bone marrow clot Clinical Info: MGUS ?, myeloma Specimen Number: [id number] CPT code: 59358,61202e3 METHODOLOGY: Deparaffinized sections of prefer/formalin-fixed tissue or PAP/DQ stained slides are incubated with monoclonal/polyclonal antibodies/oligonucleotide probes. Localization is made via biotin free immunoperoxidase method. Appropriate controls are performed and reacted as expected. Results on target cell population are indicated in the following table: RESULTS: ANTIBODY / CLONE RESULT Block B AE1-3 (AE1/AE3/PCK26) negative CK8 (39goziH43) negative CD45 (RP2/18) negative CD138 (B-A38) positive [place] (polyclonal) positive Lambda (polyclonal) negative CD34 (QBEnd-10) negative Ki-67 (30-9) positive, low (in plasma cells aggregates) These tests were developed and their performance characteristics determined by [facility]. They may not have been cleared or approved by the U.S. Food and Drug Administration. The FDA has determined that such clearance or approval is not necessary. The above immunohistochemical/dualISH markers are ordered and reviewed by the Pathologist. INTERPRETATION: B. Bone marrow clot, biopsy: Plasma cell neoplasm (multiple myeloma) with Buckhall monoclonality. Negative for metastatic carcinoma. Increased number of blasts are not seen. Case has been reviewed in consultation with Dr. Ivy who concurs with the above diagnosis. IDC:POLO DAVEY/ 07/28/2024
[2024-07-24] MEDS: Ipratropium/Albuterol Sulfate 3 ML AMPUL.NEB INHALATION ×2 (07:18→19:22)
[2024-07-24] MEDS: Budesonide Respules 0.5 MG/2 ML AMPUL.NEB. INHALATION ×2 (07:18→19:22)
[2024-07-24] MEDS: PureFlow B 2K Dialysis Soln 1 BAG 6 BAG PF (08:19)
[2024-07-24] MEDS: 0.9% Normal Saline 1,000 ML IV.SOLN. 1000 ML OPERA.SITE (08:20)
--- NOTE | 2024-07-24 10:52 | RAD_ITS ---
EXAM: XR BONE SURVEY, COMPLETE CLINICAL INDICATION: myleoma TECHNIQUE: Multiple views of the bones of the axial and appendicular skeleton. COMPARISON: No relevant prior studies available. FINDINGS: BONES/JOINTS: There are extensive lytic lesions seen within the pelvis tears. There are also lytic lesions seen within the scapula and clavicles bilaterally as well as within the humeri. There are also lytic lesions seen within the skull. Images were obtained from the skull, spine, pelvis and long bones. There is extensive hardware in the thoracic and lumbar spine from posterior fusion. SOFT TISSUES: Unremarkable. RAD/Bone Survey Comp(Axial&Append) IMPRESSION: Extensive lytic lesions seen throughout the skeleton compatible with patient''s history of multiple myeloma. Electronically Signed: Maulik Bryan MD at 20:00 EDT ,
[2024-07-24] MEDS: 0.9% Saline Lock 10 ML Syringe IV (11:43)
[2024-07-24] MEDS: Heparin 10,000 UNITS/10 ML Vial IV (11:44)
--- NOTE | 2024-07-24 12:24 | PCM.PN.HOSP ---
Subjective Subjective No issues overnight, tolerating BiPAP and started on dialysis this morning Objective Data Objective Data Vital Signs: Vital Signs Temp Pulse Resp BP Pulse Ox O2 Del Method O2 Flow Rate 96.9 F L 75 23 H 142/81 H 96 Nasal Cannula 2 07/24/24 12:14 07/24/24 12:14 07/24/24 12:14 07/24/24 12:14 07/24/24 12:14 07/24/24 12:14 07/24/24 12:14 FiO2 30 07/24/24 07:18 Oxygen Flow Rate (L/min) 2 Oxygen Delivery Method Nasal Cannula Weight: 193 lb Body Mass Index (BMI) 26.9 Intake & Output: Intake and Output for Last 24 Hours 07/23/24 07/24/24 07/25/24 03:59 03:59 03:59 Intake Total 63 / 63 120 / 120 Output Total 0 / 0 1720 / 1720 1200 / 1200 Balance 63 / 63 -1600 / -1600 -1200 / -1200 Medical Nutrition Assessment Dietitian: Malnutrition Criteria Met Start: 07/19/24 14:03 Freq: Status: Active Protocol: Document 07/20/24 09:31 RYANN (Rec: 07/20/24 09:31 [facility] [id number]) Nutrition Malnutrition Evidence of Malnutrition Exists Yes Malnutrition (severe): Acute Illness/Injury Evidenced By Suboptimal Energy Intake ( Severe),Weight Loss (Severe) Intake Problem Inadequate Oral Intake Etiology related to difficulty chewing/ swallowing and decreased appetite Signs/Symptoms as evidenced by taking less than 50% of meals and need for mechanically altered food Status Active Problem Clinical Problem Acute Disease or Injury Related Malnutrition Etiology Severe protein-calorie malnutrition in the context of acute on chronic disease related to inadequate oral intake and difficulty chewing/ swallowing Signs/Symptoms as evidenced by ~5% unintentional weight loss x 1 week, taking less than 50% meals since admit, PO meeting less than 50% estimated nutrition needs and need for pureed-consistency food Status Active Problem Recommendation Dietitian Recommendations/Changes When medically able, rec KENDY to Cardiac/Sodium Restricted diet - consistency per RAILROAD BRAKE REPAIRER When medically able, 120mL PO Nepro with meals. When medically able, rec fortified pudding w/ lunch and dinner tray. Lab / Micro Data 07/23/24 06:13 07/23/24 06:13 Labs: Laboratory Results - last 24 hr 07/22/24 04:21: Free [place] LC, Quant Note: H, Free Lambda LC, Quant 10.9, Free [place]/Lambda Ratio 1342.72 H 07/23/24 11:45: Hep Bs Antigen Non-Reactive Micro: Microbiology 07/13/24 15:20 Blood Culture (Wb) - Anticubital Left Blood Culture - Final No growth in 5 days. 07/18/24 06:30 Stool Stool Occult Blood (JEROME) - Final Occult Blood Positive 07/14/24 05:08 Sputum, Expectorated/Coughed Gram Stain - Final 07/14/24 05:08 Sputum, Expectorated/Coughed Respiratory Culture - Final 07/14/24 09:20 Mucosa - Nose Coronavirus COVID-19 PCR - Final 07/14/24 04:29 Urine, Random Legionella Antigen - Final 07/14/24 04:29 Urine, Random Streptococcus pneumoniae Antigen (M - Final 07/13/24 16:35 Mucosa - Nasopharyngeal Respiratory Panel (PCR) - Final 07/13/24 21:54 Nasal Secretion SARS-CoV-2 Antigen (Rapid) - Final Physical Exam Narrative General: Alert, Oriented x3, Cooperative, No apparent distress HEENT: Atraumatic, PERRLA, EOMI, Normocephalic Oral: Moist Mucosa Neck: Supple, No JVD Lungs: Diminished, Normal air movement, No rhonchi, No wheeze, No rales Cardiovascular: Regular rate, Regular Rhythm, Normal S1, Normal S2, No murmurs Abdomen: Soft, Non Tender, Non-Distended, No Hepato-splenomegaly Extremities: Trace edema, Capillary Refill Less than 3 Seconds Skin: No rashes, No breakdown, areas of chronic ecchymosis Musculoskeletal: No Tenderness to Palpation of Joints or Extremities Neurological: No focal neurological deficits, Motor Exam 5/5 strength throughout, Sensory exam intact to light touch and pain Psych/Mental Status: Flat Assessment & Plan Assessment/Plan (1) Acute hypoxemic respiratory failure: (2) Pneumonia of both lower lobes: (3) Hypokalemia: (4) Left leg cellulitis: PLAN: Plan Acute hypoxic respiratory failure secondary to volume overload/right lower lobe pneumonia: Chest x-ray and chest CTA individually reviewed. No evidence of pulmonary embolism. Bibasilar infiltrates present. Has thoracic and lumbar fusion with hardware. Continue vancomycin and Zosyn and azithromycin to cover MRSA, GNR including Pseudomonas and atypicals. COVID-19 PCR negative. Urinary antigens are negative. Respiratory panel negative. Gram stain pending. Continue incentive spirometry and PEP and Mucinex. Patient on BiPAP/NIPPV 07/15: Patient still short of breath and required 6 L of oxygen 07/16: On 5 L of oxygen. Breathing and respiratory status are gradually getting better. Sputum culture did not had enough specimen Therefore canceled. Will de-escalate the antibiotics patient had about 4 days of IV antibiotic therefore we will discontinue vancomycin. ID consulted. 07/17: Patient was seen by ID and recommended to continue cefepime and Zithromax. Zithromax was discontinued yesterday because of interaction with Seroquel which patient required for confusion/not able to tolerate BiPAP. Will change to doxycycline. Repeat chest x-ray was initially reviewed official report pending. Suboptimal x-ray, decreased volume especially on the left, rotated x-ray. Chronic scarring with bibasilar infiltrates. Thoracic and lumbar hardware. Tele-PCC consult 07/18/2024: Cefepime was discontinued and currently on doxycycline and Unasyn 07/21/2024: Antibiotics stopped by ID on 07/20/2024 Left lower extremity cellulitis: Left leg is very tender. Covered with antibiotics as mentioned above. Venous duplex is ordered. Patient is on anticoagulant. Wound nurse to follow 07/15: Left leg feels better and patient can lift although weak, strength 4/5 at both knee joints 07/18/2024: Leg feels better today continue with antibiotics 07/22/2024: Antibiotics completed Acute encephalopathy with change in mental status, increased confusion, distraction, sometimes, disorientation, increased reaction time to respond and echolalia: Orientation cues. CT head was done which does not show acute abnormality but partial opacification of left maxillary sinus. Neurology consult. Resolved End-stage renal disease -HD dependent -Continue home sevelamer -Consult nephrology -Patient is not compliant with diet -Patient does appear to be somewhat volume overloaded on exam 07/21/2024: Continue with dialysis appreciate nephrology's assistance managing electrolytes, serum protein electrophoresis ordered by nephrology 07/22/2024: Free kappa light chains are extremely elevated, will obtain a bone marrow sample today as well as a skeletal survey per oncology's recommendations. Significant concern for multiple myeloma Acute on chronic macrocytic anemia, multifactorial including CKD and chronic disease -H&H 8.4/26.5 decreased from 9.7/30.5%. Monitor CBC. 07/15: H&H 8.3/26%. Immature granulocytes 1.2%. Platelet count 104,000. Anemia workup ordered. 07/16: H&H 8.8/28%. Platelet count 120,000. Reticulocyte count 1.53 elevated. Immature reticulocyte fraction elevated therefore bone marrow active. Iron saturation and ferritin high. Overall suggestive of anemia of chronic disease History of thoracic compression fractures -Status post T7 laminectomy and decompression -Biopsies were taken at bedtime -Continue as needed pain medication once verified 07/18/2024: Fecal occult positive for blood, hemoglobin has actually been going up so we will monitor at this time. Will hold Eliquis 07/19/2024: Hemoglobin went from 8.5 up to 9.2 and today is down to 8.7 we will recheck tomorrow morning, continue to hold anticoagulation 07/20/2024: Hemoglobin is at 8.5 so it is stable however given the fact that he is to be on anticoagulation for his A-fib and flutter we will consult GI and placed on a clear liquid diet 07/21/2024: Probable EGD tomorrow 07/22/2024: Plan for EGD today hemoglobin is low but stable will restart Eliquis when able. 07/23/2024: Continue with PPI for his esophagitis and gastritis. Hemoglobin is stable. 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 -Hold Eliquis History of A-fib/flutter -Patient is on no rate controlling medications as his fib/flutter is not conjoined with RVR -Hold Eliquis Hypertension -Medications have not yet been verified for hypertension -Hold all antihypertensives -Blood pressures are currently on the low side -As needed hydralazine for systolic blood pressure greater than 160 Aortic aneurysm -Stable ascending aortic aneurysm noted on most recent CTA -4.4 cm -Control blood pressure -Recommend outpatient follow-up FELA -Will transition nocturnal CPAP once off BiPAP COPD -Patient had irreversibly moderately severe mixed ventilatory defect with symmetric reduction in diffusing capacity noted on his PFTs from March 2023 -FEV1 was 54% predicted -Nebulizers as above -Recommend outpatient follow-up with pulmonary medicine after discharge Depression/suicidal ideation/chronic back pain -Continue home bupropion ? [facility] from [facility] reviewed outpatient follow-up recommended -Case management consulted -Patient has no current plan DVT: SCDs Charges/Coding Visit Charges Inpatient E&M: 92871 Subs Hosp L2
[2024-07-24 13:16] LABS: Absolute Lymphocyte Count 0.87 X10^3/uL (0.83-4.51); Absolute Neutrophil Count 7.6 X10^3/uL (2.0-7.7); Basophil# 0.02 X10^3/uL; Basophil% 0.2 % (0-1); Eosinophil# 0.03 X10^3/uL; Eosinophils% 0.3 % (0-5); Hematocrit 28.4 % (40-54); Hemoglobin 8.7 g/dL (13.0-16.5); Lymphocyte # 0.87 X10^3/ul (0.83-4.51); Lymphocyte % 9.3 % (19-41); Mean Corp Hgb Conc 30.6 g/dL (32-36); Mean Corpuscular Hgb 35.8 pg (27.0-32.0); Mean Corpuscular Volume 116.9 fL (80-94); Mean Platelet Vol. 9.1 fl (6.2-12.0); Monocyte# 0.79 X10^3/uL; Monocyte% 8.5 % (0-10); NRBC Flagged by Analyzer 0 % (0-5); Neutrophil # 7.55 X10^3/uL (2.7-7.7); Neutrophil % 80.8 % (47-70); POSITIVE MORPHOLOGY YES; Platelet Count 157 K/mm3 (150-450); RBC Distribution Width CV 17.7 % (11.6-14.6); RBC Distribution Width SD 75.5 fl (35.1-43.9); Red Blood Count 2.43 M/mm3 (4.6-6.2); White Blood Count 9.3 K/mm3 (4.4-11.0)
[2024-07-24] MEDS: Midazolam 2 MG/2 ML Syringe IV (13:16)
[2024-07-24 13:19] LABS: Differential Indicated SCAN CRITERIA MET
[2024-07-24] MEDS: fentaNYL 100 MCG/2 ML Ampul IV (13:22)
[2024-07-24] MEDS: 0.9% Normal Saline (250mL Bag) 250 ML 15 ML IV (13:24)
[2024-07-24] MEDS: Lidocaine 2% (20 ml mdv) 20 ML Vial INFILT (13:37)
--- NOTE | 2024-07-24 13:40 | BMB_PTH ---
PATIENT: ZIYAD BAER Jr. LOC: [facility] U#:[id number] AGE/SX: 69/M ROOM: [facility] RE07/13/[address]: Dr. Gerardo Lynn DO : 1955 BED: 1 DIS: 07/28/2024 SPEC #: [id number] RECD: 07/24/24 13:45 STATUS: CHAITANYA REQ #: [id number] TERESA: 07/24/24 13:[address]: Judd Dalton DEPT: BONE MARROW RECD BY: Rachael Guerrero ENTERED: 07/24/24 14:02 SP TYPE: BMB OTHR DR: MD Dr. Martin Maciel MD Dr. Chitra Ganta, MD Dr. Derek Brown, DO Dr. David P Myers, MD Dr. Edward Matheis, MD Dr. Gautam Baskaran, MD Dr. Yordanos Habtegebriel, MD Dr. Hemant Dand, MD Dr. Jayaprakas Dasari, MD Dr. Jose Ochoa, MD Dr. Kimber Foust, MD Dr. Kathryn Lee, DO Dr. Lamia Aljundi, MD Dr. Prakash Chand, MD Dr. Pritam Ghosh, MD Dr. Pavan Irukulla, MD Dr. Robert Leininger, MD Dr. Saad Farooqi, MD Dr. Sujoy Gill, MD Dr. Vikram Anand, MD Dr. William Haden, MD Tissues: A - Bone marrow, NOS B - Bone marrow, NOS C - Bone marrow, NOS Procedures: Decalcification bone/plaque Bone Marrow Aspiration Bone Marrow Core Biopsy Iron Stain Bone Marrow HEADER OPERATION: Bone marrow biopsy PRE-OP DIAGNOSIS: MGUS ?, myeloma TISSUE SUBMITTED: A - Core, B - Clot, C - Smears, and send outs (flow, cytogenetics) BONE MARROW DIAGNOSIS Bone marrow core, clot, aspirate smears: Plasma cell neoplasm (multiple myeloma) with [place] monoclonality. Iron- 4+ See bone marrow study and comment. 07/28/2024 COMMENT B. Immunohistochemistry ([id number]) supports the above diagnosis. Plasma cells comprise about 30% of total nucleated cell population and nodular aggregates of plasma cells are also noted. Flow cytometry studies from [facility] show no diagnostic immunophenotypic abnormality and unable to evaluate B-cell clonality. Complete report is viewable in patient's EMR. Cytogenetic and FISH studies are pending. Case has been reviewed in consultation with Dr. Ivy who concurs with the above diagnosis. IDC:AM BONE MARROW STUDY Slides are reviewed. CBC DATE: 07/24/24 WBC 9.3K; RBC 2.43; HGB 8.7; HCT 28.4; MCV 116.9; RDW 17.7; PLTS 157,000 SEGS 80.8%; LYMPHS 9.3%; MONOS 8.5%; EOS 0.3%; BASOS 0.2%, immature granulocytes: 0.9% PERIPHERAL SMEAR: Submitted. RBC: Macrocytic anemia. WBC: Unremarkable. The WBC count is compatible to as reported above. PLTS: Adequate. BONE MARROW ASPIRATE DIFFERENTIAL: 200 cell count. Blasts % (normal 0-2): 0 Promyelocytes % (normal 1-5): 0 Myelocytes and metamyelocytes % (normal 17-41): 9 Bands and Segs % (normal 15-32): 28 Eos % (normal 1-6): 3 Basos % (normal 0-1): 0 Monocytes % (normal 0-4): 2 Erythroid Precursors % (normal 17-35): 35 Lymphocytes % (normal 7-13): 6 Plasma Cells % (normal 0-2): 17 ASPIRATE FINDINGS: Site: Not specified Aspicular, Cellular M/E ratio: 1.1 (Normal 1.5-4.0) Megakaryocytes: Present and normal morphology. Erythropoiesis: Normoblastic. Granulopoiesis: Progressive and unremarkable. Comment: Increased number of plasma cells noted. Immature plasma cells are also noted. CORE BIOPSY FINDINGS: Site: Not specified Comment: The specimen consists of predominantly peripheral blood with rare hematopoietic cells ASPIRATE CLOT FINDINGS: Site: Not specified Marrow particles: Numerous Cellularity: ~60% M/E ratio: Within normal limits. Megakaryocytes: Present and adequate in number. Granulomas: Absent. Lymphoid aggregates: Absent. Atypical infiltrates: Present. Comment: Increased number of plasma cells are noted. Nodular aggregates of plasma cells are also present. Plasma cells comprise ~30% of total nucleated cell population. Immunohistochemistry ([id number]) supports the diagnosis of plasma cell neoplasm (multiple myeloma) with [place] monoclonality. Immunohistochemistry is also negative for metastatic carcinoma. Increased number of blasts are not seen. SPECIAL STAINS WITH MATCHED CONTROLS: Iron: 4+, atypical or ring sideroblasts are not seen Reticulin: No significant increase of reticulin fibers is noted. PAS: Highlights myeloid cells and megakaryocytes. BONE MARROW GROSS A - Received is a container labeled with the patient's name and designated Bone marrow core. The specimen consists of a small fragment of blood clot submitted for cellblock preparation. B - Received labeled with the patient's name and designated Bone marrow clot is a specimen that consists of approximately 3.0 ml of bloody fluid that on filtration yields multiple minute fragments of blood clots measuring in aggregate 2.5 x 2.0 x 0.1 cm. The specimen is totally submitted in one cassette. C - Also received are 20 unstained slides and 1 peripheral stained slide. The unstained slides are submitted for appropriate staining. Also received are 2 green top tubes which are sent to our reference lab for flow, cytogenetics, multiple myeloma fish. SJ.mr 07/24/2024 TC:0 CPT: 89127, 06053, 29666 x2, 65639 x3, 19606 ADDENDUM ADDENDUM ADDENDUM ADDENDUM ADDENDUM ADDENDUM ADDENDUM ADDENDUM ADDENDUM ADDENDUM ADDENDUM ADDENDUM ADDENDUM ADDENDUM ADDENDUM ADDENDUM ADDENDUM ADDENDUM ADDENDUM ADDENDUM ADDENDUM ADDENDUM ADDENDUM ADDENDUM ADDENDUM ADDENDUM ADDENDUM ADDENDUM 08/03/2024 08:39 ADDENDUM 08/03/2024 08:39 ADDENDUM 08/03/2024 08:39 ADDENDUM 08/03/2024 08:39 ADDENDUM 08/03/2024 08:39 CYTOGENETICS REPORT FROM [facility] CYTOGENETIC RESULT: 46, XY (16) INTERPRETATION: Normal male karyotype was observed in twenty metaphases analyzed. MULTIPLE MYELOMA FISH PANEL RESULT FISH RESULT: Normal multiple myeloma panel SPECIFIC PROBE RESULTS: FGFR3 / IGH : Normal CCND1 / IGH: Normal IGH / MAF: Normal 1p36 / 1q21: Normal 13q: Normal TP53: Normal CEP 05/05/15: Normal Please see complete report in e-chart or EMR
--- NOTE | 2024-07-24 13:57 | PCM.OP.PRO ---
Procedure Report Date of Procedure: 07/24/24 Assessment & Plan Assessment/Plan (1) Anemia: QUALIFIERS: Anemia type: unspecified type Qualified Code(s): D64.9 - Anemia, unspecified PLAN: PROCEDURE: CT guided bone marrow biopsy and aspiration of the right iliac bone ORDERING PROVIDER: Dr. Dalton INDICATION: Male, 69 years old. Monoclonal gammopathy of unknown significance. PROVIDER: [place]ia GIVENS CONSENT: The risks, benefits, and alternatives to the procedure were explained to the patient. The specific risk of hemorrhage requiring further treatment or intervention was detailed and accepted. Follow-up instructions were discussed with the patient as well. Written informed consent was obtained. PRE-PROCEDURE SEDATION ASSESSMENT: Current history and physical dictated by referring physician and reviewed. No clinical changes since date of exam. Patient has a Mallampati Score of Class 2 and ASA Class of 3. PROCEDURAL SEDATION PROTOCOL: The Drugs used were: 2 mg Versed, IV, and 50 mcg Fentanyl, IV. The sedation time was: 32 minutes, starting at 1316 and terminated at 1348. The procedural sedation protocol was independently monitored by the department nurse. RADIATION DOSAGE (Supplied By Facility): CTDIvol = 19.94 mGy, DLP = 758.85 mGy.cm Individualized dose optimization techniques were utilized. TECHNIQUE The patient was brought into the CT suite and placed in the prone position. An appropriate entry site was identified using CT guidance. The overlying skin was prepped with chlorhexidine and draped in the usual sterile fashion. 2% lidocaine was administered subcutaneously for local anesthesia. Under CT guidance, a bone marrow biopsy and bone marrow aspirate were performed of the right iliac bone using an 11-gauge bone marrow biopsy kit. Laboratory staff was present to prepare the specimen slides and transport the specimen to the laboratory for analysis. Hemostasis was obtained, and a sterile occlusive dressing was applied. The patient tolerated the procedure well without immediate complications. IMPRESSION: Successful CT guided bone marrow biopsy and aspiration of the right iliac bone as described. Procedural Sedation protocol utilized with independent monitoring by the department nurse. Procedures Radiology Radiology CT Procedures: 36365 Dx bone marrow bx & aspir Multi Select Codes Radiology Radiology CT Procedures: 06046-09 CT guidance parenchymal tissue
--- NOTE | 2024-07-24 14:12 | PRO.PCM_ITS ---
Procedure Report Date of Procedure: 07/24/24 Assessment & Plan Assessment/Plan (1) Anemia: QUALIFIERS: Anemia type: unspecified type Qualified Code(s): D64.9 - Anemia, unspecified PLAN: PROCEDURE: IV Placement under Ultrasound Guidance PERFORMED BY: CHON Gunter INDICATION: IV access required. Poor venous access. TECHNIQUE: Patient identity was verified with two patient identifiers. Hands were sanitized. The patient was positioned supine with right arm at 90 degrees. The patient's upper arm vasculature was assessed using ultrasound, and the right brachial vein was externally marked. The vein was suitable for insertion of a 20 gauge 10 cm extended dwell catheter. The sterile kit was opened with additional supplies dropped in. Mask and prep gloves were donned. The und erdrape was placed under the patient's arm. The site was prepped with chlorhexidine, and tourniquet was loosely applied. Prep gloves were discarded, and hands were sanitized. Sterile gloves were donned, and the patient's arm was draped. The sterile kit was assembled with needless connector and loop flushed with sterile normal saline. The right brachial vein was then accessed using dynamic ultrasound guidance, and the catheter advanced easily. 1 attempt was required. The tourniquet was released. The flushed loop and needless connector were attached. Blood return was easily aspirated. 10 ml sterile normal saline was delivered via pulsatile flush, and the loop was clamped prior to removal of the syringe to prevent back flow. Skin was prepped and followed by application of a stat-lock and a clear dressing was applied to secure the IV. The patient tolerated the procedure well. Procedures Radiology Radiology Access Procedures: MIDL
[2024-07-24 14:13] LABS: Anisocytosis 2+
[2024-07-24] MEDS: dexAMETHasone 4 MG Tablet 40 MG PO (16:58)
--- NOTE | 2024-07-24 19:24 | PCM.PN.REN ---
Subjective Subjective seen on HD today Objective Data Objective Data Vital Signs: Vital Signs Temp Pulse Resp BP Pulse Ox O2 Del Method O2 Flow Rate 97.1 F L 74 18 144/84 H 93 Nasal Cannula 2 07/24/24 15:17 07/24/24 15:17 07/24/24 15:17 07/24/24 15:17 07/24/24 15:17 07/24/24 15:38 07/24/24 15:38 FiO2 30 07/24/24 07:18 Oxygen Flow Rate (L/min) 2 Oxygen Delivery Method Nasal Cannula Weight: 87.543 kg Body Mass Index (BMI) 26.9 Intake & Output: Intake and Output for Last 24 Hours 07/22/24 07/23/24 07/24/24 23:59 23:59 23:59 Intake Total 163 / 163 120 / 120 13.75 / 13.75 Output Total 0 / 0 1720 / 1720 1200 / 1200 Balance 163 / 163 -1600 / -1600 -1186.25 / -1186.25 Medical Nutrition Assessment Dietitian: Malnutrition Criteria Met Start: 07/19/24 14:03 Freq: Status: Active Protocol: Document 07/20/24 09:31 [facility] (Rec: 07/20/24 09:31 [facility] [id number]) Nutrition Malnutrition Evidence of Malnutrition Exists Yes Malnutrition (severe): Acute Illness/Injury Evidenced By Suboptimal Energy Intake ( Severe),Weight Loss (Severe) Intake Problem Inadequate Oral Intake Etiology related to difficulty chewing/ swallowing and decreased appetite Signs/Symptoms as evidenced by taking less than 50% of meals and need for mechanically altered food Status Active Problem Clinical Problem Acute Disease or Injury Related Malnutrition Etiology Severe protein-calorie malnutrition in the context of acute on chronic disease related to inadequate oral intake and difficulty chewing/ swallowing Signs/Symptoms as evidenced by ~5% unintentional weight loss x 1 week, taking less than 50% meals since admit, PO meeting less than 50% estimated nutrition needs and need for pureed-consistency food Status Active Problem Recommendation Dietitian Recommendations/Changes When medically able, rec KENDY to Cardiac/Sodium Restricted diet - consistency per TELECOMMUNICATION ENGINEER When medically able, 120mL PO Nepro with meals. When medically able, rec fortified pudding w/ lunch and dinner tray. Lab / Micro Data 07/24/24 13:00 07/23/24 06:13 Labs: Laboratory Results - last 24 hr 07/24/24 13:00: WBC 9.3, RBC 2.43 L, Hgb 8.7 L, Hct 28.4 L, MCV 116.9 H, MCH 35.8 H, MCHC 30.6 L, RDW Std Deviation 75.5 H, RDW Coeff of Justine 17.7 H, Plt Count 157, MPV 9.1, Immature Gran % (Auto) 0.900, Neut % (Auto) 80.8 H, Lymph % (Auto) 9.3 L, [place] % (Auto) 8.5, Eos % (Auto) 0.3, Baso % (Auto) 0.2, Absolute Neuts (auto) 7.6, Absolute Lymphs (auto) 0.87, Nucleated RBC % 0, Anisocytosis 2+ Micro: Microbiology 07/13/24 15:20 Blood Culture (Wb) - Anticubital Left Blood Culture - Final No growth in 5 days. 07/18/24 06:30 Stool Stool Occult Blood (JEROME) - Final Occult Blood Positive 07/14/24 05:08 Sputum, Expectorated/Coughed Gram Stain - Final 07/14/24 05:08 Sputum, Expectorated/Coughed Respiratory Culture - Final 07/14/24 09:20 Mucosa - Nose Coronavirus COVID-19 PCR - Final 07/14/24 04:29 Urine, Random Legionella Antigen - Final 07/14/24 04:29 Urine, Random Streptococcus pneumoniae Antigen (M - Final 07/13/24 16:35 Mucosa - Nasopharyngeal Respiratory Panel (PCR) - Final 07/13/24 21:54 Nasal Secretion SARS-CoV-2 Antigen (Rapid) - Final Physical Exam Narrative Alert, awake, oriented x 3 no obvious distress s1s2 no murmurs lungs clear abdomen soft, nontender Trace nonpitting edema bilateral lower legs. Tunneled dialysis catheter dressing clean, dry and intact Assessment & Plan Assessment/Plan (1) ESRD (end stage renal disease): PLAN: - ESRD secondary to biopsy-proven ATN with no noted recovery. -History of hyperphosphatemia had been on Renvela at home. Last phosphorus 2.6. Patient having difficult time swallowing Renvela therefore we will stop oral Renvela. If patient needs binder then we will consider powder packet Renvela. -Left lower extremity cellulitis; IV antibiotics. Venous Duplex no evidence of DVT -Pneumonia; finished antibiotic course -Significantly elevated light chains. likely myeloma. dw primary. will place oncology consult. explained findings to patient. will likely need bone marrow biopsy etc. agreeable.
[2024-07-24] MEDS: Menthol/Lanolin/Calamine/Znox 113 GM Tube 1 APPLIC TOPICAL (21:58)
[2024-07-25] VITALS (11 sets, daily range): BP systolic 122–134; BP diastolic 75–93; PULSE 56–76; RESP 12–24; TEMP 36.3–36.4; O2SAT 93–99; BMI 25.0
[2024-07-25] MEDS: oxyCODONE 5 MG Tablet PO ×3 (02:56→21:14)
[2024-07-25] MEDS: Acetaminophen 325 MG Tablet 650 MG PO ×2 (04:28→17:36)
[2024-07-25] MEDS: Baclofen 10 MG Tablet PO (04:45)
[2024-07-25] MEDS: Budesonide Respules 0.5 MG/2 ML AMPUL.NEB. INHALATION ×2 (07:40→19:10)
[2024-07-25] MEDS: Ipratropium/Albuterol Sulfate 3 ML AMPUL.NEB INHALATION ×3 (07:40→19:10)
[2024-07-25 07:59] LABS: Anion Gap 8 (5-15); BUN 28 mg/dL (7-18); BUN/Creat Ratio 8.1 RATIO (10-20); Calcium,Total 10.7 mg/dL (8.5-10.1); Chloride 104 mmol/L (98-107); Creatinine, Serum 3.46 mg/dL (0.70-1.30); EST Glomerular Filtration Rate 19 mL/min (>60); Est Glom Filt Rate - Afr Amer 23 mL/min (>60); Estimated Creatinine Clearance 22.07 ml/min; Glucose 213 mg/dL (74-106); Potassium 4.8 mmol/L (3.5-5.1); Sodium Level 137 mmol/L (136-145)
--- NOTE | 2024-07-25 09:17 | CASEMGMT ---
Addendum entered by Roopa Hidalgo 07/25/24 09:28: Social Work Phone call to MMO and the Peer to Peer line is closed on the weekend. Peer to Peer can be completed Saturday thru Saturday 8-5. But must be completed for this pt by 4pm on Sunday 07/29. Physician updated. Plan: Pt to remain hospitalized and SW and physician to follow up for Peer to Peer on Saturday for admission to [facility] Original Note: Social Work Insurance has denied precert to [facility]. Peer to Peer has been offered and must be made by 4pm on 07/29 by calling MMO at [phone] Option 1, Option 2. Reference #[id number]. Physician notified. Pt has not had therapy since Saturday due to conflict with therapy schedule and dialysis. SW called therapy and requested pt be seen this morning. SW met with pt and explained denial and potential Peer to Peer but also necessity to participate in therapy today. Pt is understanding and agreeable. Pt states that if denial is upheld, he could private pay at SNF. Pt would benefit from skilled services as he is considerably more debilitated at this time then when he was home. Per pt's request, call placed to SHANA Russell and updated on above. [facility]
[2024-07-25] MEDS: Pantoprazole Sodium 40 MG Tablet PO ×2 (09:37→21:14)
[2024-07-25] MEDS: Menthol/Lanolin/Calamine/Znox 113 GM Tube 1 APPLIC TOPICAL ×2 (09:38→21:15)
[2024-07-25] MEDS: dexAMETHasone 4 MG Tablet 40 MG PO (09:38)
[2024-07-25] MEDS: buPROPion 75 MG Tablet PO (09:39)
--- NOTE | 2024-07-25 15:31 | PN.RENAL_ITS ---
Subjective Subjective No new complaints Objective Data Objective Data Vital Signs: Vital Signs Temp Pulse Resp BP Pulse Ox O2 Del Method O2 Flow Rate 97.4 F L 63 24 H 134/93 H 95 Nasal Cannula 3 07/25/24 03:00 07/25/24 14:01 07/25/24 14:01 07/25/24 03:00 07/25/24 14:01 07/25/24 14:01 07/25/24 14:01 FiO2 21 07/25/24 14:01 Oxygen Flow Rate (L/min) 3 Oxygen Delivery Method Nasal Cannula Weight: 81.5 kg Body Mass Index (BMI) 25.0 Intake & Output: Intake and Output for Last 24 Hours 07/23/24 07/24/24 07/25/24 23:59 23:59 23:59 Intake Total 120 / 120 13.75 / 13.75 520 / 520 Output Total 1720 / 1720 1200 / 1200 150 / 150 Balance -1600 / -1600 -1186.25 / -1186.25 370 / 370 Medical Nutrition Assessment Dietitian: Malnutrition Criteria Met Start: 07/19/24 14:03 Freq: Status: Active Protocol: Document 07/20/24 09:31 [facility] (Rec: 07/20/24 09:31 [facility] [id number]) Nutrition Malnutrition Evidence of Malnutrition Exists Yes Malnutrition (severe): Acute Illness/Injury Evidenced By Suboptimal Energy Intake ( Severe),Weight Loss (Severe) Intake Problem Inadequate Oral Intake Etiology related to difficulty chewing/ swallowing and decreased appetite Signs/Symptoms as evidenced by taking less than 50% of meals and need for mechanically altered food Status Active Problem Clinical Problem Acute Disease or Injury Related Malnutrition Etiology Severe protein-calorie malnutrition in the context of acute on chronic disease related to inadequate oral intake and difficulty chewing/ swallowing Signs/Symptoms as evidenced by ~5% unintentional weight loss x 1 week, taking less than 50% meals since admit, PO meeting less than 50% estimated nutrition needs and need for pureed-consistency food Status Active Problem Recommendation Dietitian Recommendations/Changes When medically able, rec KENDY to Cardiac/Sodium Restricted diet - consistency per SEED DISTRICT SALES MANAGER When medically able, 120mL PO Nepro with meals. When medically able, rec fortified pudding w/ lunch and dinner tray. Lab / Micro Data 07/24/24 13:00 07/25/24 06:15 Labs: Laboratory Results - last 24 hr 07/25/24 06:15: Sodium 137, Potassium 4.8, Chloride 104, Carbon Dioxide 25.0, Anion Gap 8, BUN 28 H, Creatinine 3.46 H, Estim Creat Clear Calc 22.07, Est GFR (MDRD) Af Amer 23 L, Est GFR (MDRD) Non-Af 19 L, BUN/Creatinine Ratio 8.1 L, G lucose 213 H, Calcium 10.7 H Micro: Microbiology 07/13/24 15:20 Blood Culture (Wb) - Anticubital Left Blood Culture - Final No growth in 5 days. 07/18/24 06:30 Stool Stool Occult Blood (JEROME) - Final Occult Blood Positive 07/14/24 05:08 Sputum, Expectorated/Coughed Gram Stain - Final 07/14/24 05:08 Sputum, Expectorated/Coughed Respiratory Culture - Final 07/14/24 09:20 Mucosa - Nose Coronavirus COVID-19 PCR - Final 07/14/24 04:29 Urine, Random Legionella Antigen - Final 07/14/24 04:29 Urine, Random Streptococcus pneumoniae Antigen (M - Final 07/13/24 16:35 Mucosa - Nasopharyngeal Respiratory Panel (PCR) - Final 07/13/24 21:54 Nasal Secretion SARS-CoV-2 Antigen (Rapid) - Final Radiography Diagnostic Testing: Radiology Impression Bone Osseous Survey 07/24/24 10:52 IMPRESSION: Extensive lytic lesions seen throughout the skeleton compatible with patient''s history of multiple myeloma. Electronically Signed: Maulik Bryan MD at 20:00 EDT , Physical Exam Narrative Alert, awake, oriented x 3 no obvious distress s1s2 no murmurs lungs clear abdomen soft, nontender Trace nonpitting edema bilateral lower legs. Tunneled dialysis catheter dressing clean, dry and intact Assessment & Plan Assessment/Plan (1) ESRD (end stage renal disease): PLAN: - ESRD secondary to biopsy-proven ATN with no noted recovery. -History of hyperphosphatemia had been on Renvela at home. Last phosphorus 2.6. Patient having difficult time swallowing Renvela therefore we will stop oral Renvela. If patient needs binder then we will consider powder packet Renvela. -Left lower extremity cellulitis; IV antibiotics. Venous Duplex no evidence of DVT -Pneumonia; finished antibiotic course -Significantly elevated light chains. likely myeloma. Status post bone marrow biopsy Bone scan with lytic lesions consistent with myeloma Will likely need treatment. Final bone marrow pathology pending His sister just came in from [place]. Asking for palliative care consult for pain management
--- NOTE | 2024-07-25 18:55 | PN.HOSP_ITS ---
Reason for Visit Reason for Visit: Diagnoses Anemia, unspecified (07/13/24) Hypokalemia (07/13/24) Pneumonia, unspecified organism (07/13/24) Acute respiratory failure with hypoxia (07/13/24) Chronic respiratory failure with hypoxia (07/13/24) Gastrointestinal hemorrhage, unspecified (07/13/24) Cellulitis of left lower limb (07/13/24) End stage renal disease (07/13/24) Other dysphagia (07/13/24) Subjective Subjective Patient was seen and examined today, according to social and political studies professor he has not been participating in PT and OT for several days, his insurance carrier declined to authorize placement in a penitentiary facility. I have decided to have PT and OT see the patient to document his rehab status, we will resubmit paperwork to his insurance carrier. Patient states that he has pain in his back but when he receives analgesics for the most part it improves the pain. Objective Data Objective Data Vital Signs: Vital Signs Temp Pulse Resp BP Pulse Ox O2 Del Method O2 Flow Rate 97.4 F L 63 24 H 134/93 H 95 Nasal Cannula 3 07/25/24 03:00 07/25/24 14:01 07/25/24 14:01 07/25/24 03:00 07/25/24 14:01 07/25/24 14:01 07/25/24 14:01 FiO2 21 07/25/24 14:01 Oxygen Flow Rate (L/min) 3 Oxygen Delivery Method Nasal Cannula Weight: 81.5 kg Body Mass Index (BMI) 25.0 Intake & Output: Intake and Output for Last 24 Hours 07/23/24 07/24/24 07/25/24 23:59 23:59 23:59 Intake Total 120 / 120 13.75 / 13.75 520 / 520 Output Total 1720 / 1720 1200 / 1200 350 / 350 Balance -1600 / -1600 -1186.25 / -1186.25 170 / 170 Medical Nutrition Assessment Dietitian: Malnutrition Criteria Met Start: 07/19/24 14:03 Freq: Status: Active Protocol: Document 07/20/24 09:31 [facility] (Rec: 07/20/24 09:31 [facility] [id number]) Nutrition Malnutrition Evidence of Malnutrition Exists Yes Malnutrition (severe): Acute Illness/Injury Evidenced By Suboptimal Energy Intake ( Severe),Weight Loss (Severe) Intake Problem Inadequate Oral Intake Etiology related to difficulty chewing/ swallowing and decreased appetite Signs/Symptoms as evidenced by taking less than 50% of meals and need for mechanically altered food Status Active Problem Clinical Problem Acute Disease or Injury Related Malnutrition Etiology Severe protein-calorie malnutrition in the context of acute on chronic disease related to inadequate oral intake and difficulty chewing/ swallowing Signs/Symptoms as evidenced by ~5% unintentional weight loss x 1 week, taking less than 50% meals since admit, PO meeting less than 50% estimated nutrition needs and need for pureed-consistency food Status Active Problem Recommendation Dietitian Recommendations/Changes When medically able, rec KENDY to Cardiac/Sodium Restricted diet - consistency per FLIGHT ATTENDANT/INFLIGHT SUPERVISOR When medically able, 120mL PO Nepro with meals. When medically able, rec fortified pudding w/ lunch and dinner tray. Lab / Micro Data 07/24/24 13:00 07/25/24 06:15 Labs: Laboratory Results - last 24 hr 07/25/24 06:15: Sodium 137, Potassium 4.8, Chloride 104, Carbon Dioxide 25.0, Anion Gap 8, BUN 28 H, Creatinine 3.46 H, Estim Creat Clear Calc 22.07, Est GFR (MDRD) Af Amer 23 L, Est GFR (MDRD) Non-Af 19 L, BUN/Creatinine Ratio 8.1 L, G lucose 213 H, Calcium 10.7 H Micro: Microbiology 07/13/24 15:20 Blood Culture (Wb) - Anticubital Left Blood Culture - Final No growth in 5 days. 07/18/24 06:30 Stool Stool Occult Blood (JEROME) - Final Occult Blood Positive 07/14/24 05:08 Sputum, Expectorated/Coughed Gram Stain - Final 07/14/24 05:08 Sputum, Expectorated/Coughed Respiratory Culture - Final 07/14/24 09:20 Mucosa - Nose Coronavirus COVID-19 PCR - Final 07/14/24 04:29 Urine, Random Legionella Antigen - Final 07/14/24 04:29 Urine, Random Streptococcus pneumoniae Antigen (M - Final 07/13/24 16:35 Mucosa - Nasopharyngeal Respiratory Panel (PCR) - Final 07/13/24 21:54 Nasal Secretion SARS-CoV-2 Antigen (Rapid) - Final Radiography Diagnostic Testing: Radiology Impression Bone Osseous Survey 07/24/24 10:52 IMPRESSION: Extensive lytic lesions seen throughout the skeleton compatible with patient''s history of multiple myeloma. Electronically Signed: Maulik Bryan MD at 20:00 EDT , Physical Exam Const alert, oriented x3 and no apparent distress Constitutional Narrative: Patient appears debilitated and frail General Appearance: cooperative, well kempt and well developed Orientation / Consciousness: awake, oriented to person, oriented to place and oriented to time HEENT normocephalic, head/scalp atraumatic and moist oral mucous membranes Eyes PERRL, EOMs intact bilaterally and conjunctivae normal Neck supple, no JVD and thyroid normal General: trachea midline Resp normal respiratory effort, no retractions, no use of accessory muscles and clear to auscultation bilaterally Auscultation: Negative for rales, rhonchi or wheezes Cardio regular rate, regular rhythm, S1 normal heart sound, S2 normal heart sound, no murmurs, no rub and no gallops GI normal to inspection, nondistended, normoactive bowel sounds, soft to palpation, non-tender and non-distended Extremity no clubbing, cyanosis or edema Skin no rashes or lesions noted General Skin Exam: no breakdown Neuro oriented x3, CN's II-XII intact bilaterally, no focal motor deficits and no sensory deficits noted Sensorium / Orientation: awake and alert Speech: speech normal Psych Psych Narrative: Patient has flat affect Assessment & Plan Assessment/Plan (1) Left leg cellulitis: PLAN: Plan 1. Acute hypoxic respiratory failure secondary to right lower lobe pneumonia with a overlay of volume overload from end-stage renal disease requiring dialysis-patient is currently on low-flow oxygen at 3 L via nasal cannula, pulse ox will be monitored #2 end-stage renal disease requiring dialysis-nephrology is participating in his care, patient continues with dialysis as scheduled #3 left lower extremity cellulitis-resolved at this time, patient is not on any antibiotics #4 chronic obstructive pulmonary disease-patient is on aerosol treatments, pulse ox will be monitored #5 acute debility secondary to multiple medical problems including possible multiple myeloma, respiratory failure, end-stage renal disease-PT and OT will continue to see the patient, there are plans for the patient to go to a penitentiary facility for short-term rehab services. #6 possible multiple myeloma-patient continues on high-dose Decadron, he will need follow-up with oncology #7 metabolic encephalopathy-cleared at this time #8 erosive esophagitis with acute gastritis-patient remains on Protonix #9 acute severe protein and caloric malnutrition in the context of acute on chronic disease related to inadequate oral intake and difficulty chewing/swallowing as evidenced by approximately 5% unintentional weight loss x 1 week, taking less than 50% of meals since admission to the hospital, p.o. meeting less than 50% estimated nutritional needs and need for pur?e consistency food-patient is on a cardiac/sodium restricted diet, patient will be given 120 mL p.o. nephro with meals and fortified pudding with lunch and dinner. #10 anemia of chronic renal disease-monitor hemoglobin as needed #11 chronic depression-patient is on Wellbutrin Total clinical time spent by myself addressing the patient's medical issues, reviewing all of his data, and collaborating with patient's care team: 50 minutes Charges/Coding Visit Charges Inpatient E&M: 20032 Subs Hosp L3
[2024-07-25] MEDS: 0.9% Saline Lock 10 ML Syringe IV (21:15)
[2024-07-26] VITALS (11 sets, daily range): BP systolic 131–163; BP diastolic 75–100; PULSE 45–81; RESP 12–20; TEMP 36.1–36.7; O2SAT 88–99; BMI 25.0
[2024-07-26] MEDS: oxyCODONE 5 MG Tablet PO ×2 (05:35→11:07)
[2024-07-26] MEDS: Ipratropium/Albuterol Sulfate 3 ML AMPUL.NEB INHALATION ×3 (07:24→19:35)
[2024-07-26] MEDS: Budesonide Respules 0.5 MG/2 ML AMPUL.NEB. INHALATION ×2 (07:24→19:35)
[2024-07-26] MEDS: dexAMETHasone 4 MG Tablet 40 MG PO (10:51)
[2024-07-26] MEDS: Pantoprazole Sodium 40 MG Tablet PO ×2 (10:53→21:27)
[2024-07-26] MEDS: Colestipol 1 GM TABLET PO (10:53)
[2024-07-26] MEDS: buPROPion 75 MG Tablet PO (10:54)
[2024-07-26] MEDS: Menthol/Lanolin/Calamine/Znox 113 GM Tube 1 APPLIC TOPICAL ×2 (11:05→21:28)
[2024-07-26] MEDS: Acetaminophen 325 MG Tablet 650 MG PO (11:08)
--- NOTE | 2024-07-26 13:22 | PN.HOSP_ITS ---
Reason for Visit Reason for Visit: Diagnoses Anemia, unspecified (07/13/24) Hypokalemia (07/13/24) Pneumonia, unspecified organism (07/13/24) Acute respiratory failure with hypoxia (07/13/24) Chronic respiratory failure with hypoxia (07/13/24) Gastrointestinal hemorrhage, unspecified (07/13/24) Cellulitis of left lower limb (07/13/24) End stage renal disease (07/13/24) Other dysphagia (07/13/24) Subjective Subjective Patient was seen and examined today, physical therapy got him up to a chair but was with maximal assistance due to his severe back pain. I talked to the patient's sister who was in the room at the time my examination she had several questions that I answered, I told her that I would place the patient on time- released narcotics to see if this would help in his mobility. She was okay with this. Objective Data Objective Data Vital Signs: Vital Signs Temp Pulse Resp BP Pulse Ox O2 Del Method O2 Flow Rate 98.0 F 69 16 163/90 H 93 Nasal Cannula 2 07/26/24 09:00 07/26/24 13:19 07/26/24 13:19 07/26/24 09:00 07/26/24 09:00 07/26/24 10:00 07/26/24 12:37 FiO2 21 07/26/24 03:37 Oxygen Flow Rate (L/min) 2 Oxygen Delivery Method Nasal Cannula Weight: 81.5 kg Body Mass Index (BMI) 25.0 Intake & Output: Intake and Output for Last 24 Hours 07/24/24 07/25/24 07/26/24 23:59 23:59 23:59 Intake Total 13.75 / 13.75 520 / 520 120 / 120 Output Total 1200 / 1200 350 / 350 Balance -1186.25 / -1186.25 170 / 170 120 / 120 Medical Nutrition Assessment Dietitian: Malnutrition Criteria Met Start: 07/19/24 14:03 Freq: Status: Active Protocol: Document 07/20/24 09:31 RYANN (Rec: 07/20/24 09:31 RYANN [id number]) Nutrition Malnutrition Evidence of Malnutrition Exists Yes Malnutrition (severe): Acute Illness/Injury Evidenced By Suboptimal Energy Intake ( Severe),Weight Loss (Severe) Intake Problem Inadequate Oral Intake Etiology related to difficulty chewing/ swallowing and decreased appetite Signs/Symptoms as evidenced by taking less than 50% of meals and need for mechanically altered food Status Active Problem Clinical Problem Acute Disease or Injury Related Malnutrition Etiology Severe protein-calorie malnutrition in the context of acute on chronic disease related to inadequate oral intake and difficulty chewing/ swallowing Signs/Symptoms as evidenced by ~5% unintentional weight loss x 1 week, taking less than 50% meals since admit, PO meeting less than 50% estimated nutrition needs and need for pureed-consistency food Status Active Problem Recommendation Dietitian Recommendations/Changes When medically able, rec KENDY to Cardiac/Sodium Restricted diet - consistency per FIRESTOP/CONTAINMENT WORKER When medically able, 120mL PO Nepro with meals. When medically able, rec fortified pudding w/ lunch and dinner tray. Lab / Micro Data 07/24/24 13:00 07/25/24 06:15 Micro: Microbiology 07/13/24 15:20 Blood Culture (Wb) - Anticubital Left Blood Culture - Final No growth in 5 days. 07/18/24 06:30 Stool Stool Occult Blood (JEROME) - Final Occult Blood Positive 07/14/24 05:08 Sputum, Expectorated/Coughed Gram Stain - Final 07/14/24 05:08 Sputum, Expectorated/Coughed Respiratory Culture - Final 07/14/24 09:20 Mucosa - Nose Coronavirus COVID-19 PCR - Final 07/14/24 04:29 Urine, Random Legionella Antigen - Final 07/14/24 04:29 Urine, Random Streptococcus pneumoniae Antigen (M - Final 07/13/24 16:35 Mucosa - Nasopharyngeal Respiratory Panel (PCR) - Final 07/13/24 21:54 Nasal Secretion SARS-CoV-2 Antigen (Rapid) - Final Physical Exam Narrative alert, oriented x3 and no apparent distress Constitutional Narrative: Patient appears debilitated and frail General Appearance: cooperative, well kempt and well developed Orientation / Consciousness: awake, oriented to person, oriented to place and oriented to time HEENT normocephalic, head/scalp atraumatic and moist oral mucous membranes Eyes PERRL, EOMs intact bilaterally and conjunctivae normal Neck supple, no JVD and thyroid normal General: trachea midline Resp normal respiratory effort, no retractions, no use of accessory muscles and clear to auscultation bilaterally Auscultation: Negative for rales, rhonchi or wheezes Cardio regular rate, regular rhythm, S1 normal heart sound, S2 normal heart sound, no murmurs, no rub and no gallops GI normal to inspection, nondistended, normoactive bowel sounds, soft to palpation, non-tender and non-distended Extremity no clubbing, cyanosis or edema Skin no rashes or lesions noted General Skin Exam: no breakdown Neuro oriented x3, CN's II-XII intact bilaterally, no focal motor deficits and no sensory deficits noted Sensorium / Orientation: awake and alert Speech: speech normal Psych Psych Narrative: Patient has flat affect Assessment & Plan Assessment/Plan (1) ESRD (end stage renal disease): (2) Left leg cellulitis: PLAN: Plan 1. Acute hypoxic respiratory failure secondary to right lower lobe pneumonia with a overlay of volume overload from end-stage renal disease requiring dialysis-patient is currently on low-flow oxygen at 2 L via nasal cannula, pulse ox will be monitored #2 end-stage renal disease requiring dialysis-nephrology is participating in his care, patient continues with dialysis as scheduled #3 left lower extremity cellulitis-resolved at this time, patient is not on any antibiotics #4 chronic obstructive pulmonary disease-patient is on aerosol treatments, pulse ox will be monitored #5 acute debility secondary to multiple medical problems including possible multiple myeloma, respiratory failure, end-stage renal disease-PT and OT will continue to see the patient, there are plans for the patient to go to a long-term facility for short-term rehab services. #6 possible multiple myeloma-patient continues on high-dose Decadron, he will need follow-up with oncology #7 metabolic encephalopathy-cleared at this time #8 erosive esophagitis with acute gastritis-patient remains on Protonix #9 acute severe protein and caloric malnutrition in the context of acute on chronic disease related to inadequate oral intake and difficulty chewing/swallowing as evidenced by approximately 5% unintentional weight loss x 1 week, taking less than 50% of meals since admission to the hospital, p.o. meeting less than 50% estimated nutritional needs and need for pur?e consistency food-patient is on a cardiac/sodium restricted diet, patient will be given 120 mL p.o. nephro with meals and fortified pudding with lunch and dinner. #10 anemia of chronic renal disease-monitor hemoglobin as needed #11 chronic depression-patient is on Wellbutrin #12 chronic back pain secondary to suspected multiple myeloma-I started the patient on OxyContin 15 mg twice daily he will receive this in addition to as needed oxycodone 5 mg every 4 hours Total clinical time spent by myself addressing the patient's medical issues, reviewing all of his data, and collaborating with patient's care team: 35 minutes Charges/Coding Visit Charges Inpatient E&M: 02452 Subs Hosp L2
[2024-07-26] MEDS: Senna/Docusate Sodium 1 Tablet 2 TABLET PO ×2 (15:07→21:27)
[2024-07-26] MEDS: oxyCODONE CR 15 MG Tablet PO ×2 (15:07→21:26)
[2024-07-26] MEDS: 0.9% Saline Lock 10 ML Syringe IV (21:37)
[2024-07-27] VITALS (17 sets, daily range): BP systolic 117–210; BP diastolic 76–117; PULSE 45–86; RESP 12–18; TEMP 36.4–36.7; O2SAT 94–100; BMI 25.0; BMI 24.6
[2024-07-27] MEDS: Ipratropium/Albuterol Sulfate 3 ML AMPUL.NEB INHALATION ×2 (07:02→19:41)
[2024-07-27] MEDS: Budesonide Respules 0.5 MG/2 ML AMPUL.NEB. INHALATION ×2 (07:02→19:41)
[2024-07-27] MEDS: 0.9% Normal Saline 1,000 ML IV.SOLN. 1000 ML OPERA.SITE (09:51)
[2024-07-27] MEDS: Heparin 10,000 UNITS/10 ML Vial IV (09:52)
[2024-07-27] MEDS: PureFlow B 2K Dialysis Soln 1 BAG 6 BAG PF (09:52)
--- NOTE | 2024-07-27 09:56 | CASEMGMT ---
EBONIE was informed patient's sister Jenni Santa would like to talk with SW. This EBONIE and EBONIE Lucero met with Jenni Romero. Introduced selves and role at [facility]. Jenni Romero is concerned that patient going somewhere for Rehab and at this point patient is too painful to do therapy. Jenni Romero feels this is cruel to make him do therapy when he is in so much pain. There was also discussion regarding medical POA and financial POA. Jenni Romero is aware patient did do HCPOA while at [facility] and made [facility] his medical POA. Jenni Romero expressed concern with all of the individual people in patient's life and their intentions. There is suspicion that some of the individuals may be after patient's money. Jenni Romero said Lidia has been paying patient's bills. Jenni Romero asked about options if patient does not want to go somewhere for therapy. EBONIE explained patient could to go a nursing facility private pay. Jenni Romero said patient has the funds to do this. Patient had expressed to her that he wants to sell his home and would like to be somewhere to be cared for. Jenni Romero does not think patient will want hospice. Jenni Romero was asking about Palliative Care. Jenni Romero would also prefer patient go to a facility that does on site dialysis. EBONIE explained [facility] is the only facility in the area that has onsite dialysis. EBONIE will inquire about private pay costs and how dialysis would work. EBONIE will also talk with physician about pain control for patient. Edwige plans on talking to patient about his goals of care as well. EBONIE will find out about private pay costs for [facility] and dialysis. EBONIE also will need to talk with patient about what he would like at discharge. Olga Carrion SENIOR MANAGER [facility] MARTHA
[2024-07-27] MEDS: oxyCODONE CR 15 MG Tablet PO ×2 (10:30→21:50)
[2024-07-27] MEDS: oxyCODONE 5 MG Tablet PO ×2 (12:46→18:01)
[2024-07-27] MEDS: buPROPion 75 MG Tablet PO (12:46)
[2024-07-27] MEDS: Baclofen 10 MG Tablet PO (12:46)
[2024-07-27] MEDS: Pantoprazole Sodium 40 MG Tablet PO (12:47)
[2024-07-27] MEDS: Senna/Docusate Sodium 1 Tablet 2 TABLET PO (12:47)
[2024-07-27] MEDS: 0.9% Saline Lock 10 ML Syringe IV (12:48)
[2024-07-27] MEDS: Menthol/Lanolin/Calamine/Znox 113 GM Tube 1 APPLIC TOPICAL (12:49)
--- NOTE | 2024-07-27 13:48 | CASEMGMT ---
EBONIE was informed that patient has chosen to go to a SNF intermediate level of care. This EBONIE and EBONIE Lucero went to patient's room. Patient was lying flat in his bed and grimacing with pain with any movement. Patient's sister Jenni Romero was present. EBONIE gave them the private pay costs at [facility] as this was discussed with patient's sister earlier. After talking a little more patient decided to go to the inpatient Hospice Unit. Patient said the pain is too bad. SW explained how the process works and patient was agreeable. EBONIE then notified RN, charge account identification clerk, and physician of this plan. EBONIE then called Hospice with the referral. Await call from Hospice regarding meeting time. Olga Carrion PRESIDENT AND CHIEF OPERATING OFFICER MARTHA
--- NOTE | 2024-07-27 14:35 | CASEMGMT ---
EBONIE received a phone call from Hospice. A nurse will be at [facility] to see patient at 5p. This EBONIE and EBONIE Lucero spoke with patient and his sister letting them know Hospice will be at [facility] at 5p to meet with them. EBONIE explained once he is approved for the inpatient unit arrangements will be made to get patient to Hospice. EBONIE asked patient if he wanted SW to call Yvonne, his Healthcare POA. Patient's sister said they talked about this and they would like to wait to notify everyone after patient has gone Hospice. Patient's sister said she may call her and talk with her. EBONIE notified RN, pharmacist in charge owner, and physician. Olga Carrion ELEMENTARY VOCAL MUSIC TEACHER MARTHA
--- NOTE | 2024-07-27 15:20 | PN.RENAL_ITS ---
Subjective Subjective no new complaints unable to participate in therapy much Objective Data Objective Data Vital Signs: Vital Signs Temp Pulse Resp BP Pulse Ox O2 Del Method O2 Flow Rate 97.6 F L 70 14 143/108 H 100 Nasal Cannula 3 07/27/24 12:24 07/27/24 12:24 07/27/24 12:24 07/27/24 12:24 07/27/24 12:24 07/27/24 12:24 07/27/24 12:24 FiO2 25 07/27/24 07:38 Oxygen Flow Rate (L/min) 3 Oxygen Delivery Method Nasal Cannula Weight: 80.1 kg Body Mass Index (BMI) 24.6 Intake & Output: Intake and Output for Last 24 Hours 07/25/24 07/26/24 07/27/24 23:59 23:59 23:59 Intake Total 520 / 520 120 / 120 Output Total 350 / 350 1120 / 1120 Balance 170 / 170 120 / 120 -1120 / -1120 Medical Nutrition Assessment Dietitian: Malnutrition Criteria Met Start: 07/19/24 14:03 Freq: Status: Active Protocol: Document 07/20/24 09:31 SLA (Rec: 07/20/24 09:31 SLA [id number]) Nutrition Malnutrition Evidence of Malnutrition Exists Yes Malnutrition (severe): Acute Illness/Injury Evidenced By Suboptimal Energy Intake ( Severe),Weight Loss (Severe) Intake Problem Inadequate Oral Intake Etiology related to difficulty chewing/ swallowing and decreased appetite Signs/Symptoms as evidenced by taking less than 50% of meals and need for mechanically altered food Status Active Problem Clinical Problem Acute Disease or Injury Related Malnutrition Etiology Severe protein-calorie malnutrition in the context of acute on chronic disease related to inadequate oral intake and difficulty chewing/ swallowing Signs/Symptoms as evidenced by ~5% unintentional weight loss x 1 week, taking less than 50% meals since admit, PO meeting less than 50% estimated nutrition needs and need for pureed-consistency food Status Active Problem Recommendation Dietitian Recommendations/Changes When medically able, rec KENDY to Cardiac/Sodium Restricted diet - consistency per ENG[employer] When medically able, 120mL PO Nepro with meals. When medically able, rec fortified pudding w/ lunch and dinner tray. Lab / Micro Data 07/24/24 13:00 07/25/24 06:15 Micro: Microbiology 07/13/24 15:20 Blood Culture (Wb) - Anticubital Left Blood Culture - Final No growth in 5 days. 07/18/24 06:30 Stool Stool Occult Blood (JEROME) - Final Occult Blood Positive 07/14/24 05:08 Sputum, Expectorated/Coughed Gram Stain - Final 07/14/24 05:08 Sputum, Expectorated/Coughed Respiratory Culture - Final 07/14/24 09:20 Mucosa - Nose Coronavirus COVID-19 PCR - Final 07/14/24 04:29 Urine, Random Legionella Antigen - Final 07/14/24 04:29 Urine, Random Streptococcus pneumoniae Antigen (M - Final 07/13/24 16:35 Mucosa - Nasopharyngeal Respiratory Panel (PCR) - Final 07/13/24 21:54 Nasal Secretion SARS-CoV-2 Antigen (Rapid) - Final Physical Exam Narrative Alert, awake, oriented x 3 no obvious distress s1s2 no murmurs lungs clear abdomen soft, nontender Trace nonpitting edema bilateral lower legs. Tunneled dialysis catheter dressing clean, dry and intact Assessment & Plan Assessment/Plan (1) ESRD (end stage renal disease): PLAN: - ESRD secondary to biopsy-proven ATN with no noted recovery. -Left lower extremity cellulitis; IV antibiotics. Venous Duplex no evidence of DVT -Pneumonia; finished antibiotic course -Significantly elevated light chains. likely myeloma. Status post bone marrow biopsy Bone scan with lytic lesions consistent with myeloma bone marrow pathology pending dw hospitalist. has not been able to participate in therapy at all. hospice meeting today
--- NOTE | 2024-07-27 18:10 | PCM.DC.SUM ---
Providers Date of Admission: 07/13/24 Date of Discharge: 07/27/24 Primary Care Physician: Dr. 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 Routine Comment: 07/16/24 08:31 Consult: Infectious Disease Routine Consulting Provider: Andre Billy Reason for Consult: copd with [facility] Pneumonia, deecalation of antibiotics EMERGENT Consult: No MD Notified: Yes Date Notified: 07/16/24 Time Notified: 08:31 Method of Notification: Text 07/17/24 09:22 Consult: Quiller Hand / Pulmonary Medicine Routine Consulting Provider: Intensivists/Pulmonary Med Reason for Consult: Acute hypoxic failure, COPD exacerbation, pneumonia, not improving EMERGENT Consult: No MD Notified: Yes Date Notified: 07/17/24 Time Notified: 09:23 Method of Notification: Verbal neuro [Consult: Tele-Neurology] Routine Consulting Provider: [facility] Reason for Consult: Acute encephalopathy for last 1 day. EMERGENT Consult: No MD Notified: Yes Date Notified: 07/17/24 Time Notified: 09:22 Method of Notification: Answering Service Comments:: Confusion and disorientation. Increased reaction time Nursing Unit Staff Notify [facility] of Tele-Neurology Consult: Yes 07/20/24 08:27 Consult: Gastroenterology Routine Consulting Provider: [facility] Reason for Consult: GI bleed EMERGENT Consult: No MD Notified: Yes Date Notified: 07/20/24 Time Notified: 09:16 Method of Notification: Text Reason For Visit: ACUTE HYPOXIC RESPIRATORY FAILURE Diagnosis Discharge Diagnosis (1) ESRD (end stage renal disease): Status: Acute Code(s): N18.6 - End stage renal disease Plan 1. Acute hypoxic respiratory failure secondary to right lower lobe pneumonia with a overlay of volume overload from end-stage renal disease requiring dialysis-patient is currently on low-flow oxygen at 2 L via nasal cannula, pulse ox will be monitored #2 end-stage renal disease requiring dialysis-nephrology is participating in his care, patient continues with dialysis as scheduled #3 left lower extremity cellulitis-resolved at this time, patient is not on any antibiotics #4 chronic obstructive pulmonary disease-patient is on aerosol treatments, pulse ox will be monitored #5 acute debility secondary to multiple medical problems including possible multiple myeloma, respiratory failure, end-stage renal disease-PT and OT will continue to see the patient, there are plans for the patient to go to a custodial facility for short-term rehab services. #6 possible multiple myeloma-patient continues on high-dose Decadron, he will need follow-up with oncology #7 metabolic encephalopathy-cleared at this time #8 erosive esophagitis with acute gastritis-patient remains on Protonix #9 acute severe protein and caloric malnutrition in the context of acute on chronic disease related to inadequate oral intake and difficulty chewing/swallowing as evidenced by approximately 5% unintentional weight loss x 1 week, taking less than 50% of meals since admission to the hospital, p.o. meeting less than 50% estimated nutritional needs and need for pur?e consistency food-patient is on a cardiac/sodium restricted diet, patient will be given 120 mL p.o. nephro with meals and fortified pudding with lunch and dinner. #10 anemia of chronic renal disease-monitor hemoglobin as needed #11 chronic depression-patient is on Wellbutrin #12 chronic back pain secondary to suspected multiple myeloma-I started the patient on OxyContin 15 mg twice daily he will receive this in addition to as needed oxycodone 5 mg every 4 hours Total clinical time spent by myself addressing the patient's medical issues, reviewing all of his data, and collaborating with patient's care team: 35 minutes Medications at Discharge Home Medications amlodipine 10 mg tablet 10 mg PO QHS Blood pressure 10/14/19 escitalopram oxalate 20 mg tablet 20 mg PO DAILY Check with primary doctor 10/14/19 bupropion HCl 75 mg tablet 75 mg PO DAILY Depression 09/18/22 bethanechol chloride 25 mg tablet 25 mg PO TID 30 days #90 tabs 01/07/23 albuterol sulfate 90 mcg/actuation aerosol inhaler 2 puff inhalation Q6H sob 01/14/23 acetaminophen 325 mg tablet 650 mg (2 x 325 mg) PO Q6H PRN PRN Pain 1-10 Or Fever>100.7 #0 tabs 01/17/23 ferrous sulfate 325 mg (65 mg iron) tablet (FeroSul) 325 mg PO DAILY@1200 Check with primary doctor 03/08/23 fluticasone propionate 50 mcg/actuation nasal spray,suspension 2 spray NASAL DAILY Check with primary doctor 03/08/23 lidocaine 5 % topical patch 1 patch topical 0800 Check with primary doctor 03/08/23 magnesium chloride 64 mg (magnesium chloride) tablet,delayed release (Mag 64) 250 mg PO DAILY Check with primary doctor 03/08/23 vit A 300 mcg-C 200 mg-E 27 mg-lutein 2 mg and minerals tablet (Healthy Eyes) 1 cap PO DAILYCM Check with primary doctor 03/08/23 apixaban 5 mg tablet (Eliquis) 5 mg PO BID 30 days #60 tabs 03/13/23 sennosides 8.6 mg-docusate sodium 50 mg tablet (Stool Softener-Stimulant Laxative) 2 tab PO BID #0 tabs 03/13/23 cholecalciferol (vitamin D3) 1,250 mcg (50,000 unit) capsule 1,250 mcg PO QWEEK 06/19/23 colestipol 1 gram tablet 1 g PO DAILY 06/19/23 ketoconazole 2 % topical cream 1 applic topical DAILY 06/19/23 lisinopril 40 mg tablet 40 mg PO QHS 06/19/23 teriparatide 20 mcg/dose (600 mcg/2.4 mL) subcutaneous pen injector (Forteo) 20 mcg subcut DAILY 06/19/23 baclofen 10 mg tablet 10 mg PO TID PRN muscle spasm 07/26/23 carvedilol 25 mg tablet 25 mg PO BID Check with primary doctor 07/26/23 cyclobenzaprine 5 mg tablet 5 mg PO TID PRN muscle spasm 07/26/23 furosemide 20 mg tablet 20 mg PO DAILY PRN edema 07/26/23 potassium chloride 10 mEq tablet,extended release 10 meq PO DAILY PRN WITH LASIX 07/26/23 sildenafil 100 mg tablet 100 mg PO DAILY PRN SEE PCP 07/26/23 cefuroxime axetil 500 mg tablet 500 mg PO BID #20 tabs 06/01/24 metronidazole 500 mg tablet 500 mg PO BID #20 tabs 06/01/24 ondansetron 8 mg disintegrating tablet 8 mg PO Q8H PRN nausea and vomiting #20 tabs 06/01/24 budesonide-formoterol HFA 160 mcg-4.5 mcg/actuation aerosol inhaler 2 puff inhalation BID 07/13/24 gabapentin 300 mg capsule 300 mg PO DAILY 07/13/24 losartan 25 mg tablet 25 mg PO DAILY 07/13/24 oxycodone-acetaminophen 5 mg-325 mg tablet 1 tab PO Q8H PRN PRN pain 07/13/24 sevelamer carbonate 800 mg tablet 800 mg PO 4X/DAY 07/13/24 tizanidine 2 mg tablet 2 mg PO TID PRN 07/13/24 vitamin B complex-vitamin C-folic acid 0.8 mg tablet (Shannon-Dia) 1 tab PO DAILY 07/13/24 Hospital Course Operations None Procedures - (Bone marrow biopsy) Summary of Care Provided Minutes Spent on Discharge: 33 Hospital Course: This 69-year-old white male was seen in the emergency room at [facility] with complaints of severe shortness of breath, he was noted to be mottled on presentation to the emergency room, his O2 saturation on 4 L was 98%. Due to his work of breathing patient was placed on BiPAP, labs included a CBC which showed a hemoglobin of 9.7, chemistry profile was remarkable for potassium of 3.2, creatinine was elevated 2.94 and BUN was 26. Patient's beta natruretic peptide was elevated at 502, chest x-ray showed vascular congestion and multiple healed left rib fractures. Patient was admitted for acute hypoxic respiratory failure secondary to volume overload and right lower lobe pneumonia, patient was started on IV antibiotics and seen in consultation by nephrology and infectious diseases, patient was seen by speech therapy who felt the patient had significant dysphagia, his diet was adjusted, patient was seen in consultation by gastroenterology due to concerns of GI bleed, patient had an episode of metabolic encephalopathy during his admission and was confused for a period of time. Patient underwent an EGD which showed evidence of esophagitis and acute gastritis. Due to the patient having evidence of a monoclonal gammopathy, he underwent a bone marrow aspiration and biopsy under CT. Patient continued to have severe back pain and it was felt he would benefit from admission to a custodial facility for rehab services, unfortunately patient had so much back pain he was not able to precipitate in physical therapy, and discussions were carried out with the patient's sister who was participating in his medical decisions, ultimately the patient understood he might have multiple myeloma and that treatment for this would not reverse his present diffuse bone pain in all likelihood. He requested hospice intervention and hospice consulted on the patient and agreed to take the patient to the inpatient hospice facility. On 07/27/2024, patient was seen and examined: alert, oriented x3 and no apparent distress Constitutional Narrative: Patient appears debilitated and frail General Appearance: cooperative, well kempt and well developed Orientation / Consciousness: awake, oriented to person, oriented to place and oriented to time HEENT normocephalic, head/scalp atraumatic and moist oral mucous membranes Eyes PERRL, EOMs intact bilaterally and conjunctivae normal Neck supple, no JVD and thyroid normal General: trachea midline Resp normal respiratory effort, no retractions, no use of accessory muscles and clear to auscultation bilaterally Auscultation: Negative for rales, rhonchi or wheezes Cardio regular rate, regular rhythm, S1 normal heart sound, S2 normal heart sound, no murmurs, no rub and no gallops GI normal to inspection, nondistended, normoactive bowel sounds, soft to palpation, non-tender and non-distended Extremity no clubbing, cyanosis or edema Skin no rashes or lesions noted General Skin Exam: no breakdown Neuro oriented x3, CN's II-XII intact bilaterally, no focal motor deficits and no sensory deficits noted Sensorium / Orientation: awake and alert Speech: speech normal Psych Psych Narrative: Patient has flat affect Patient was transferred to inpatient hospice facility on 07/27/2024 in stable condition with a poor prognosis. Medical Records Data Medical Nutrition Assessment Dietitian: Malnutrition Criteria Met Start: 07/19/24 14:03 Freq: Status: Active Protocol: Document 07/20/24 09:31 RYANN (Rec: 07/20/24 09:31 [facility] [id number]) Nutrition Malnutrition Evidence of Malnutrition Exists Yes Malnutrition (severe): Acute Illness/Injury Evidenced By Suboptimal Energy Intake ( Severe),Weight Loss (Severe) Intake Problem Inadequate Oral Intake Etiology related to difficulty chewing/ swallowing and decreased appetite Signs/Symptoms as evidenced by taking less than 50% of meals and need for mechanically altered food Status Active Problem Clinical Problem Acute Disease or Injury Related Malnutrition Etiology Severe protein-calorie malnutrition in the context of acute on chronic disease related to inadequate oral intake and difficulty chewing/ swallowing Signs/Symptoms as evidenced by ~5% unintentional weight loss x 1 week, taking less than 50% meals since admit, PO meeting less than 50% estimated nutrition needs and need for pureed-consistency food Status Active Problem Recommendation Dietitian Recommendations/Changes When medically able, rec KENDY to Cardiac/Sodium Restricted diet - consistency 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 When medically able, rec fortified pudding w/ lunch and dinner tray. Weight / BMI Weight Weight: 80.1 kg Body Mass Index (BMI) 24.6 ABG / Lab / Microbiology Data 07/24/24 13:00 07/25/24 06:15 Microbiology: Microbiology 07/13/24 15:20 Blood Culture (Wb) - Anticubital Left Blood Culture - Final No growth in 5 days. 07/18/24 06:30 Stool Stool Occult Blood (JEROME) - Final Occult Blood Positive 07/14/24 05:08 Sputum, Expectorated/Coughed Gram Stain - Final 07/14/24 05:08 Sputum, Expectorated/Coughed Respiratory Culture - Final 07/14/24 09:20 Mucosa - Nose Coronavirus COVID-19 PCR - Final 07/14/24 04:29 Urine, Random Legionella Antigen - Final 07/14/24 04:29 Urine, Random Streptococcus pneumoniae Antigen (M - Final 07/13/24 16:35 Mucosa - Nasopharyngeal Respiratory Panel (PCR) - Final 07/13/24 21:54 Nasal Secretion SARS-CoV-2 Antigen (Rapid) - Final Meaningful Use Info Meaningful Use Meaningful Use Diagnoses (Choose all that apply): None applicable Ischemic Stroke Statin Dosing Therapy Reference: STATIN DOSE THERAPY REFERENCE: * Patients > 75 years receive moderate or high dose statin therapy. * Patients 75 years or YOUNGER should receive HIGH intensity statin dose unless contraindicated. You will be required to document reason for non-treatment if statin daily dose does not meet guidelines. HIGH DOSE STATIN THERAPY DAILY Atorvastatin > than or = to 40 mg Rosuvastatin > than or = to 20 mg Amlodipine + Atorvastatin > than or = to 2.5/40 mg Ezetimibe + Simvastatin 10/80 mg Simvastatin 80mg Discharge Plan Admission Admit Date/Time: 07/13/24 14:54 Attending Provider: Gerardo Lynn Primary Care Provider: Arleen Hwang Consulting Providers: Regine Pratt; Andre Billy; Hallie Car; Preston Singh; Martin Watson; Dallin Ngo; Micheal Marquis; Chun Alaniz; Tani Hahn; Niharika Partida; Fransisco Shook; Jas Hooker; Karine Torres; Fritz Rollins; Reese Dee; [place] Bright; Darryl Argueta; Andrea Mccabe; Evan Fried; Luan Bernal; Keith Pink; Judd Dalton Instructions Patient Instructions: SHARRON JIMENEZ Bone Marrow Aspiration and Biopsy, SHARRON JIMENEZ Procedural Sedation Discharge Orders/Prescriptions Prescriptions: No Action amlodipine 10 MG tablet 10 mg PO QHS escitalopram oxalate 20 MG tablet 20 mg PO DAILY bupropion HCl 75 mg tablet 75 mg PO DAILY Patient Comments: START WITH TAKING 1 TABLET DAILY AND INCREASE TO 1 TABLET TWICE DAILY IF TOLERATED bethanechol chloride 25 mg Tablet 25 mg PO TID 30 Days Qty: 90 0RF albuterol sulfate 90 mcg/actuation HFA aerosol inhaler 2 puff INHALATION Q6H Patient Comments: INHALE 2 PUFFS BY MOUTH EVERY 6 HOURS NEEDED FOR WHEEZING OR SHORTNESS OF BREATH acetaminophen 325 mg Tablet 650 mg PO Q6H PRN PRN (Reason: Pain 1-10 Or Fever>100.7) Qty: 0 0RF ferrous sulfate [FeroSul] 325 mg (65 mg iron) tablet 325 mg PO DAILY@1200 lidocaine 5 % adhesive patch,medicated 1 patch topical 0800 fluticasone propionate 50 mcg/actuation spray,suspension 2 spray NASAL DAILY Healthy Eyes 300 mcg-200 mg-27 mg-2 mg tablet 1 cap PO DAILYCM Mag 64 64 mg tablet,delayed release (DR/EC) 250 mg PO DAILY sennosides-docusate sodium [Stool Softener-Stimulant Laxat] 8.6-50 mg Tablet 2 tab PO BID Qty: 0 0RF Rx Instructions: Hold if more than 1 bowel movement per day Eliquis 5 mg Tablet 5 mg PO BID 30 Days Qty: 60 2RF lisinopril 40 mg tablet 40 mg PO QHS colestipol 1 gram tablet 1 g PO DAILY Patient Comments: TAKE 1 TABLET BY MOUTH ONCE DAILY AT BEDTIME ketoconazole 2 % cream 1 applic TOPICAL DAILY Forteo 20 mcg/dose (600mcg/2.4mL) pen injector 20 mcg subcut DAILY cholecalciferol (vitamin D3) 1,250 mcg (50,000 unit) capsule 1,250 mcg PO QWEEK baclofen 10 mg tablet 10 mg PO TID PRN (Reason: muscle spasm) furosemide 20 mg tablet 20 mg PO DAILY PRN (Reason: edema) potassium chloride 10 mEq tablet extended release 10 meq PO DAILY PRN (Reason: WITH LASIX) cyclobenzaprine 5 mg tablet 5 mg PO TID PRN (Reason: muscle spasm) sildenafil 100 mg tablet 100 mg PO DAILY PRN (Reason: SEE PCP) Rx Instructions: administer 30 minutes to 4 hours before activity carvedilol 25 mg tablet 25 mg PO BID Patient Comments: TAKE 1 TABLET BY MOUTH TWICE A DAY WITH MEALS Rx Instructions: Hold for heart less than 60 or systolic blood pressure less than 100 mmHg. tizanidine 2 mg tablet 2 mg PO TID PRN oxycodone-acetaminophen 5-325 mg tablet 1 tab PO Q8H PRN PRN (Reason: pain) losartan 25 mg tablet 25 mg PO DAILY gabapentin 300 mg capsule 300 mg PO DAILY budesonide-formoterol 160-4.5 mcg/actuation HFA aerosol inhaler 2 puff INHALATION BID sevelamer carbonate 800 mg tablet 800 mg PO 4X/DAY Shannon-Dia 0.8 mg tablet 1 tab PO DAILY metronidazole 500 mg tablet 500 mg PO BID Qty: 20 0RF ondansetron 8 mg tablet,disintegrating 8 mg PO Q8H PRN (Reason: nausea and vomiting) Qty: 20 0RF cefuroxime axetil 500 mg tablet 500 mg PO BID Qty: 20 0RF Referrals / Follow Up: Arleen Hwang MD [Primary Care Provider] - Disposition Disposition (needs filled in before D/C Order can be placed): Hospice in Medical Facility Charges/Coding Visit Charges Inpatient E&M: 43818 Disch Hosp >30min
--- NOTE | 2024-07-27 18:54 | NURSING ---
Patient refusing Q2 turns due to pain. Pt educated on importance of repositioning due to pressure sores. Prn pain medications given when available, as well as scheduled pain medications.
[2024-07-28] MEDS: HYDROmorphone 1 MG/ML Syringe IV (00:24)
[2024-07-28] MEDS: 0.9% Saline Lock 10 ML Syringe IV (00:24)
[2024-08-19 09:52] LABS: Miscellaneous Lab Procedure SEE PATHOLOGY REPORT; Miscellaneous Lab Procedure 2 SEE PATHOLOGY REPORT; Miscellaneous Lab Procedure 3 SEE PATHOLOGY REPORT
== END 2024-07-28 00:45 | disposition hospice, inpatient (51) | DRG 193 ==
LOC: ED 14:29 → ICU 15:26 → MS2 07-21 07:19 → PCU 07-21 16:44
PROVIDERS: Family Medicine; Internal Medicine; Internal Medicine Gastroenterology; Internal Medicine Nephrology; Nurse Practitioner Acute Care; Nurse Practitioner Adult Health; Admitting Provider Internal Medicine; Emergency Provider Emergency Medicine; PCP Internal Medicine; Visit Provider Internal Medicine
PROC: 0DJ08ZZ Inspection of Upper Intestinal Tract, Via Natural or Artificial Opening Endoscopic (ICD-10-PCS; CPT 43235; principal; 2024-07-22 15:40)
DX: J18.9 Pneumonia, unspecified organism (principal); E43 Unspecified severe protein-calorie malnutrition; J96.21 Acute and chronic respiratory failure with hypoxia; N17.0 Acute kidney failure with tubular necrosis; G93.41 Metabolic encephalopathy; N18.6 End stage renal disease; K22.10 Ulcer of esophagus without bleeding; C90.00 Multiple myeloma not having achieved remission; R45.851 Suicidal ideations; J44.0 Chronic obstructive pulmonary disease with (acute) lower respiratory infection; I12.0 Hypertensive chronic kidney disease with stage 5 chronic kidney disease or end stage renal disease; L03.116 Cellulitis of left lower limb; D63.1 Anemia in chronic kidney disease; I71.21 Aneurysm of the ascending aorta, without rupture; F32.A Depression, unspecified; D53.9 Nutritional anemia, unspecified; G47.33 Obstructive sleep apnea (adult) (pediatric); E87.6 Hypokalemia; K29.00 Acute gastritis without bleeding; Z87.891 Personal history of nicotine dependence; Z91.119 Patient's noncompliance with dietary regimen due to unspecified reason; R62.7 Adult failure to thrive; Z79.01 Long term (current) use of anticoagulants; Z82.3 Family history of stroke; B96.5 Pseudomonas (aeruginosa) (mallei) (pseudomallei) as the cause of diseases classified elsewhere; M85.80 Other specified disorders of bone density and structure, unspecified site; Z98.1 Arthrodesis status; Z68.27 Body mass index [BMI] 27.0-27.9, adult; Z86.711 Personal history of pulmonary embolism; Z86.718 Personal history of other venous thrombosis and embolism
CPT/HCPCS: 36415; 36600; 70450; 70551; 71045; 71046; 71275; 74230; 77012; 77075; 80048; 80053; 80076; 80202; 82140; 82274; 82550; 82728; 82784; 82803; 82962; 83010; 83540; 83550; 83605; 83615; 83735; 83880; 83883; 84100; 84153; 84165; 84484; 85025; 85045; 86334; 86880; 87040; 87070; 87205; 87340; 87449; 87633; 87635; 87641; 87811; 88305; 88311; 88312; 88313; 88341; 88342; 90937; 92526; 92610; 92611; 93005; 93970; 94002; 94003; 94640; 94668; 94762; 97110; 97162; 97166; 97530; 97535; 97802; 97803; 99156; 99157; 99285; J7030; J7040; J7050; Q9967; A4216; G0257; J0295; J0696; J2405; Q5106